=== PATIENT | female | born 1960 | race Hispanic/Latino ===

== ENCOUNTER 2017-07-01 09:49 | Observation (INO) | payer MEDICARE, MEDICAID ==
[2017-07-01 10:25] LABS: #Basophils 0.1 thou/uL (0.0-0.2); #Eosinphils 0.3 thou/uL (0.0-0.7); #Lymphocytes 1.6 thou/uL (1.20-3.40); #Monocytes 0.4 thou/uL (0.11-0.59); #Neutrophils 5.6 thou/uL (1.40-6.50); %Basophils 0.6 % (0.0-1.0); %Lymphocytes 19.7 % (21.0-51.0); %Monocytes 5.2 % (0.0-10.0); %Neutrophils 70.5 % (42.0-75.0); Hemoglobin 11.7 g/dL (12.0-16.0); Mean Corpuscular HGB CONC 31.9 g/dL (32.0-36.0); Mean Platelet Volume 7.4 fL (7.4-10.4); Platelet Count 199 thou/uL (130-400); RBC Distribution Width 12.5 % (11.5-14.5); Red Blood Cell (RBC) Count 3.65 mill/uL (4.20-5.40)
--- NOTE | 2017-07-01 10:28 | RAD ---
SINGLE VIEW CHEST: Date: 07/01/17 COMPARISON: 08/27/16. HISTORY: Dyspnea. FINDINGS: Single view of the chest shows a normal sized cardiomediastinal silhouette. There is no evidence of c onsolidation, mass, or pleural effusion. The bones are unremarkable. IMPRESSION: No evidence of acute cardiopulmonary disease. POS: [facility]
[2017-07-01 10:48] LABS: ALT (SGPT) 9 U/L (8-55); AST (SGOT) 12 U/L (5-34); Albumin 4.4 g/dL (3.5-5.0); Alkaline Phosphatase 80 U/L (40-150); Anion Gap 14 mmol/L (10-20); BUN (Urea Nitrogen) 18 mg/dL (9.8-20.1); Bilirubin, Total 0.3 mg/dL (0.2-1.2); Calc. Creatinine Clearance 0 mL/min (70-130); Calcium 9.5 mg/dL (7.8-10.44); Carbon Dioxide 31 mmol/L (22-29); Chloride 98 mmol/L (98-107); Estimated GFR-MDRD 15; Globulin 3.1 g/dL (2.4-3.5); Glucose 126 mg/dL (70-105); Potassium 4.2 mmol/L (3.5-5.1); Protein, Total 7.5 g/dL (6.0-8.3); Sodium 139 mmol/L (136-145)
[2017-07-01 10:52] LABS: CKMB 2.1 ng/mL (0-6.6); Troponin I 0.013 ng/mL (< 0.028)
[2017-07-01] MEDS ORDERED: Nitroglycerin 0.4 MG TAB (25 Tab Bottle) ONE (16:31)
[2017-07-01] MEDS ORDERED: Ondansetron ODT 4 MG TAB SL PRN (17:57)
[2017-07-01] MEDS ORDERED: Ondansetron HCl/PF 4 MG/2 ML Vial IVP PRN ×2 (17:57→20:11)
[2017-07-01] MEDS ORDERED: Acetaminophen 325 MG TAB PO PRN ×2 (17:57→20:11)
[2017-07-01] MEDS ORDERED: Nitroglycerin 0.4 MG TAB (25 Tab Bottle) PO PRN (20:09)
[2017-07-01] MEDS ORDERED: Dextrose 50% Abboject 50 ML SYRINGE SLOW IVP PRN (20:09)
[2017-07-01] MEDS ORDERED: Insulin Regular 300 UNITS/3 ML VIAL SC PRN (20:09)
[2017-07-01] MEDS ORDERED: Dextrose 5% in Water 1,000 ML IV PRN (20:09)
[2017-07-01] MEDS ORDERED: Senokot 8.6 MG TAB PO PRN (20:11)
[2017-07-01] MEDS ORDERED: Ondansetron ODT 4 MG TAB PO PRN (20:11)
[2017-07-01] MEDS ORDERED: Calcium Carbonate 500 MG ChewTAB PO PRN (20:11)
[2017-07-01 20:18] VITALS: BMI 43.7
[2017-07-01 20:27] LABS: Troponin I 0.015 ng/mL (< 0.028)
--- NOTE | 2017-07-01 20:35 | HP ---
DATE OF ADMISSION: 07/01/2017 PRIMARY CARE PHYSICIAN: Dr. Driver. CHIEF COMPLAINT: Chest discomfort and shortness of breath during dialysis today. HISTORY OF PRESENT ILLNESS: The patient is a 57-year-old female with diabetes mellitus type 2, peripheral vascular disease, hypertension, dyslipidemia, and end-stage renal disease on hemodialy sis, presented to the emergency room by EMS with chest discomfort and shortness of breath that starte d during dialysis. The chest discomfort was substernal, radiating between her scapula. She also had shortness of breath that was worse on lying down. Over the last month or so, the patient has on and off cough, which is nonproductive. The cough gets worse after smoking. She denies any fevers, chil ls or any production. No recent immobilization or travel reported. She denies any fever or chills. No syncope, palpitations or diaphoresis reported. In the emergency room, initial vital signs showed temperature 98.2, respirations of 19, pulse of 73, and blood pressure of 144/81 with O2 saturation of 99% on room air. She received aspirin, nitroglyce rin with 1 liter IV fluids in the emergency room. PAST MEDICAL HISTORY: 1. End-stage renal disease, on hemodialysis Saturday, Saturday, and Saturday. 2. Hypertension. 3. Dyslipidemia. 4. Diabetes mellitus type 2. 5. Ongoing tobacco abuse. PAST SURGICAL HISTORY: 1. Dialysis access. 2. 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 ALLERGIES: No known drug allergies. CURRENT HOME MEDICATIONS: The patient is unable to recall all of her home medications. Family is to bring an accurate list of medication. She takes 81 mg aspirin on a daily basis. SOCIAL HISTORY: The patient smokes on and off up to half pack per week. No alcohol or drug use. FAMILY HISTORY: Father of motor vehicle accident at a very young age. No premature coronary [place] disease reported. Some family members are with diabetes. REVIEW OF SYSTEMS: The following complete review of systems was negative, unless otherwise mentioned in the HPI or below: Constitutional: Weight loss or gain, ability to conduct usual activities. Skin: Rash, itching. Eyes: Double vision, pain. ENT/Mouth: Nose bleeding, neck stiffness, pain, tenderness. Cardiovascular: Palpitations, dyspnea on exertion, orthopnea. Respiratory: Shortness of breath, wheezing, cough, hemoptysis, fever or night sweats. Gastrointestinal: Poor appetite, abdominal pain, heartburn, nausea, vomiting, constipation, or diarr hea. Genitourinary: Urgency, frequency, dysuria, nocturia. Musculoskeletal: Pain, swelling. Neurologic/Psychiatric: Anxiety, depression. Allergy/Immunologic: Skin rash, bleeding tendency. PHYSICAL EXAMINATION: VITAL SIGNS: As discussed above. GENERAL: A 57-year-old female, in no apparent distress. Chest discomfort improved. HEENT: Head: Atraumatic, normocephalic. Sclerae are anicteric. Moist mucous membrane, no oral les ion. NECK: Supple, no JVD appreciated. No carotid bruit. LUNGS: Essentially clear to auscultation bilaterally with scattered rales at bases. There were no r honchi or wheezing. HEART: S1 and S2 present. Regular rate and rhythm. No rubs, gallops or murmur appreciated. No rep roducible chest wall tenderness. EXTREMITIES: 1+ edema in bilateral lower extremities. No calf tenderness. SKIN: Warm and dry. LYMPH NODES: No palpable lymph nodes in the neck. PERIPHERAL VASCULAR: Radial pulses palpable bilaterally. MUSCULOSKELETAL: No joint swelling or tenderness. NEUROLOGIC: Grossly nonfocal, moves all four extremities. PSYCHIATRIC: Alert, awake, and oriented x3. LABORATORY AND X-RAY FINDINGS: CBC showed WBC 8.0 with hemoglobin 11.7, hematocrit 36.6, and platele t count of 199. Chemistries showed sodium 139, potassium 4.2, chloride 98, bicarbonate 31, BUN 18, c reatinine 3.12. Troponin on admission was negative. No troponin has been done since then. BNP was 332. EKG by my review showed sinus rhythm with left ventricular hypertrophy and left axis deviation. QT interval was 469 milliseconds. Chest x-ray by my review showed minimal pulmonary vascular conge stion. IMPRESSION: 1. Chest discomfort, rule out acute coronary syndrome. 2. Shortness of breath, probably secondary to volume overload. 3. Diabetes mellitus type 2. 4. Hypertension. 5. Hyperlipidemia. 6. Peripheral vascular disease. 7. Ongoing tobacco abuse. PLAN: The patient will be monitored in the telemetry unit as a 23-hour observation. A stress test w ill be ordered if her troponins are negative. We will resume home medications once confirmed. Tobac co cessation was emphasized. I do not think the patient needs a repeat hemodialysis. Her dialysis s ession today was short of 20 minutes also. Continue aspirin. Lifestyle modification emphasized. In sulin sliding scale. Plan of care was discussed with the patient in detail. She stated understanding.
[2017-07-01] MEDS: Atorvastatin Calcium 20 MG TAB PO SCH (20:52)
[2017-07-01] MEDS: Docusate 100 MG CAP PO SCH (20:52)
[2017-07-01] MEDS: cloNIDine 0.1 MG TAB PO SCH (20:53)
[2017-07-01] MEDS: Famotidine 20 MG TAB PO SCH (20:53)
[2017-07-01] MEDS: Metoprolol Tartrate 50 MG TAB PO SCH (20:53)
[2017-07-02 05:29] LABS: Troponin I 0.024 ng/mL (< 0.028)
--- NOTE | 2017-07-02 08:57 | CON ---
DATE OF CONSULTATION: 07/01/2017 TIME: 6 P.M. NEPHROLOGY CONSULTATION REASON FOR CONSULTATION: Stage 6 chronic kidney disease for maintenance hemodialysis. HISTORY OF PRESENT ILLNESS: This is a 57-year-old female who presented to the hospital with 1 day history of chest pain at the end of dialysis. The patient denies headache, numbness, tingling or weakness. Denies any nausea, vomiting or chest pain. PAST MEDICAL HISTORY: End-stage renal disease, hypertension, hyperlipidemia, diabetes mellitus, history of dialysis access, history of amputation of the second right toe. ALLERGIES: Reviewed. HOME MEDICATIONS: Reviewed. FAMILY HISTORY: Negative for ESRD. REVIEW OF SYSTEMS: A 15 point review of systems was performed and was negative except for positives noted above. GENERAL: Weakness- HEAD: Headache- NECK: No swelling or lumps. NOSE: No epistaxis or discharge. EYES: No diplopia or pain. RESPIRATORY: Dyspnea- CARDIOVASCULAR: Chest pain- GASTROINTESTINAL: Nausea- /[employer]: Hematuria- MUSCULOSKELETAL: No joint pain. NEUROPSYCHIATIC SYSTEMS: No suicidal ideation. No ideation. SKIN: Denies any rash or ulcer. CONSTITUTIONAL: No fever or chills. PHYSICAL EXAMINATION: GENERAL: Patient is awake, alert. VITAL SIGNS: Afebrile, pulse 75, breathing 16, blood pressure 144/89. HEAD/NECK: Normocephalic. Atraumatic. EYES: EOMI. No deformity. EARS: Clear. No ulcers. NOSE: Intact. No lesions. MOUTH: Clear. No discharge. THROAT: Clear. No exudate. LUNGS: Clear. No crackles. CARDIAC: S1, S2. No rub. ABDOMEN: Benign. BS+. GENITALIA/RECTUM: Weeks absent. BACK/EXTREMITIES: Edema 0+ Ulcer- NEUROLOGICAL: Alert and motor intact. SKIN: Rash- Bruise- LYMPHATICS: Edema- Ulcer- LABORATORY DATA: Showed hemoglobin 11.7. ASSESSMENT AND RECOMMENDATIONS: 1. Stage 6 chronic kidney disease. We will plan dialysis per schedule Saturday, Saturday, and Saturday. 2. Hypertension, stable. 3. Anemia, stable. 4. Medications based on glomerular filtration rate are appropriate. 5. Secondary hyperparathyroidism. Continue low phosphorus diet. 6. Chest pain. Management per primary team. [facility]
--- NOTE | 2017-07-02 10:18 | PRG ---
DATE OF SERVICE: 07/02/2017 SUBJECTIVE: A 57-year-old female being seen for end-stage renal disease. The patient denies any devang sea, vomiting, or chest pain. PHYSICAL EXAMINATION: GENERAL: Patient is awake and alert. VITAL SIGNS: Afebrile, pulse 60, breathing 16, and blood pressure 140/60. HEAD/NECK: Normocephalic. Atraumatic. EYES: EOMI. No deformity. EARS: Clear. No ulcers. NOSE: Intact. No lesions. MOUTH: Clear. No discharge. THROAT: Clear. No exudate. LUNGS: Clear. No crackles. CARDIAC: S1, S2. No rub. ABDOMEN: Benign. BS+. GENITALIA/RECTUM: Weeks absent. BACK/EXTREMITIES: Edema 0+ Ulcer-. NEUROLOGICAL: Alert and motor intact. SKIN: Rash- Bruise-. LYMPHATICS: Edema- Ulcer-. ASSESSMENT AND RECOMMENDATIONS: 1. Stage 6 chronic kidney disease. We will plan dialysis today. 2. Hypertension, stable. 3. Anemia, stable. 4. Medications based on glomerular filtration rate are appropriate.
[2017-07-02] MEDS: Aspirin 325 MG TAB PO SCH (11:05)
[2017-07-02] MEDS: Lisinopril 5 MG TAB PO SCH (11:06)
[2017-07-02] MEDS: Docusate 100 MG CAP PO SCH ×2 (11:06→21:04)
[2017-07-02] MEDS: cloNIDine 0.1 MG TAB PO SCH ×2 (11:07→21:04)
[2017-07-02] MEDS: Metoprolol Tartrate 50 MG TAB PO SCH ×2 (11:07→21:04)
[2017-07-02] MEDS: Insulin Regular 300 UNITS/3 ML VIAL SC PRN ×2 (11:08→18:11)
[2017-07-02 13:47] LABS: HBSAg Index 0.21 S/CO (0-0.99); Hep B Surf Ag Non-Reactive S/CO (NonReactive)
[2017-07-02] MEDS ORDERED: ADENOSINE 60 MG/20 ML VIAL ONE (13:57)
--- NOTE | 2017-07-02 15:43 | PDOC.PN ---
- Subjective Encounter Start Date: 07/02/17 Encounter Start Time: 13:30 Patient seen and examined. SOB + charlene on mild exertion. No overnight events - Objective Resuscitation Status: Resuscitation Status FULL:Full Resuscitation MAR Reviewed: Yes Vital Signs & Weight: Vital Signs (12 hours) Temp Pulse Resp BP BP Pulse Ox 07/02/17 13:12 97 07/02/17 11:07 141/75 H 07/02/17 11:06 70 141/65 H 07/02/17 10:50 98.1 F 69 20 141/65 H 97 07/02/17 08:05 98.5 F 60 20 141/60 H 07/02/17 08:00 98.5 F 60 20 07/02/17 04:25 98.3 F 62 18 136/64 97 Weight Weight 223 lb 9 oz I&O: 07/01/17 07/02/17 07/03/17 06:59 06:59 06:59 Intake Total 480 240 Balance 480 240 Result Diagrams: 07/01/17 10:12 07/01/17 10:12 Additional Labs: Accuchecks 07/02/17 07/02/17 07/01/17 11:00 05:40 21:39 POC Glucose 243 H 135 H 217 H 07/01/17 18:05 POC Glucose 218 H EKG Reviewed by me: Yes (Tele SR) Phys Exam - Physical Examination Constitutional: NAD Respiratory: no wheezing, no rhonchi Scat rales at bases Cardiovascular: RRR, no rub no heaves/pulsations Gastrointestinal: soft, non-tender, no distention, positive bowel sounds Musculoskeletal: no edema Neurological: moves all 4 limbs Psychiatric: normal affect, A&O x 3 Dx/Plan - Plan DVT proph w/SCDs IMPRESSION: 1. Chest discomfort, rule out acute coronary syndrome. 2. Shortness of breath, probably secondary to volume overload. 3. Diabetes mellitus type 2 - on sliding scale 4. Hypertension. 5. Hyperlipidemia. 6. Peripheral vascular disease. 7. Ongoing tobacco abuse. Counselled PLAN: * Await Stress test * Dialysis per Neprho * Cont current meds as below * Cont ASA * Cont to monitor * DC in AM if stress test negative Review of Systems - Review of Systems Respiratory: negative: Cough, Dry, Shortness of Breath, Hemoptysis, SOB with Excertion, Pleuritic Pain, Sputum, Wheezing Gastrointestinal: negative: Nausea, Vomiting, Abdominal Pain, Diarrhea, Constipation, Melena, Hematochezia - Medications/Allergies Allergies/Adverse Reactions: Allergies Allergy/AdvReac Type Severity Reaction Status Date / Time No Known Drug Allergies Allergy Verified 06/13/16 16:19 Medications: Current Medications Acetaminophen (Tylenol) 650 mg PO Q4H PRN PRN Reason: Headache/Fever or Pain Last Admin: 07/01/17 22:13 Dose: 650 mg Aspirin (Aspirin) 325 mg PO DAILY [facility] Last Admin: 07/02/17 11:05 Dose: 325 mg Atorvastatin Calcium (Lipitor) 20 mg PO HS [facility] Last Admin: 07/01/17 20:52 Dose: 20 mg Calcium Carbonate (Tums) 1,000 mg PO Q4H PRN PRN Reason: Heartburn or Indigestion Clonidine (Catapres) 0.1 mg PO BID [facility] Last Admin: 07/02/17 11:07 Dose: 0.1 mg Dextrose/Water (Dextrose 50%) 25 gm SLOW IVP PRN PRN PRN Reason: Hypoglycemia Docusate Sodium (Colace) 100 mg PO BID [facility] Last Admin: 07/02/17 11:06 Dose: 100 mg Famotidine (Pepcid) 20 mg PO 2100 [facility] Last Admin: 07/01/17 20:53 Dose: 20 mg Glucagon (Glucagon) 1 mg IM PRN PRN PRN Reason: Hypoglycemia Dextrose/Water (D5w) 1,000 mls @ 0 mls/hr IV .Q0M PRN; As Directed PRN Reason: Hypoglycemia Insulin Human Regular (Humulin R) 0 units SC .MILD SLIDING SCALE PRN PRN Reason: Mild Correctional Scale Last Admin: 07/02/17 11:08 Dose: 3 unit Insulin Human Regular (Humulin R) 0 units SC .BEDTIME SLIDING SC PRN PRN Reason: Bedtime Correctional Scale Last Admin: 07/01/17 22:07 Dose: 2 unit Lisinopril (Zestril) 5 mg PO DAILY [facility] Last Admin: 07/02/17 11:06 Dose: 5 mg Metoprolol Tartrate (Lopressor) 50 mg PO BID [facility] Last Admin: 07/02/17 11:07 Dose: 50 mg Nitroglycerin (Nitrostat) 0.4 mg PO Q5MIN PRN PRN Reason: Chest Pain Ondansetron HCl (Zofran Odt) 4 mg PO Q6H PRN PRN Reason: Nausea/Vomiting Ondansetron HCl (Zofran) 4 mg IVP Q6H PRN PRN Reason: Nausea/Vomiting Senna (Senokot) 2 tab PO HSPRN PRN PRN Reason: Constipation Sertraline HCl (Zoloft) 50 mg PO [facility] Last Admin: 07/01/17 20:53 Dose: 50 mg
[2017-07-02] MEDS: Famotidine 20 MG TAB PO SCH (21:04)
[2017-07-02] MEDS: Atorvastatin Calcium 20 MG TAB PO SCH (21:04)
[2017-07-03] MEDS: Metoprolol Tartrate 50 MG TAB PO SCH (09:27)
[2017-07-03] MEDS: Aspirin 325 MG TAB PO SCH (09:27)
[2017-07-03] MEDS: Lisinopril 5 MG TAB PO SCH (09:27)
[2017-07-03] MEDS: cloNIDine 0.1 MG TAB PO SCH (09:27)
[2017-07-03] MEDS: Docusate 100 MG CAP PO SCH (09:27)
--- NOTE | 2017-07-03 10:03 | PRG ---
DATE OF SERVICE: 07/03/2017 SUBJECTIVE: This is a 57-year-old female being seen for end-stage renal disease. The patient denies any nausea, vomiting or chest pain. PHYSICAL EXAMINATION: GENERAL: Patient is awake, alert. VITAL SIGNS: Afebrile, pulse 73, breathing 16, blood pressure 130/60. HEAD/NECK: Normocephalic. Atraumatic. EYES: EOMI. No deformity. EARS: Clear. No ulcers. NOSE: Intact. No lesions. MOUTH: Clear. No discharge. THROAT: Clear. No exudate. LUNGS: Clear. No crackles. CARDIAC: S1, S2. No rub. ABDOMEN: Benign. BS+. GENITALIA/RECTUM: Weeks absent. BACK/EXTREMITIES: Edema 0+ Ulcer- NEUROLOGICAL: Alert and motor intact. SKIN: Rash- Bruise- LYMPHATICS: Edema- Ulcer- LABORATORY DATA: Show hemoglobin 11.7. ASSESSMENT AND RECOMMENDATIONS: 1. Stage 6 chronic kidney disease. Continue hemodialysis. 2. Hypertension, stable. 3. Anemia, stable. 4. Medications based on glomerular filtration rate are appropriate.
[2017-07-03 12:07] VITALS: BP 111/51; TEMP 98.5
[2017-07-03] MEDS: Insulin Regular 300 UNITS/3 ML VIAL SC PRN (12:08)
--- NOTE | 2017-07-03 14:29 | NM ---
NUCLEAR MEDICINE CARDIAC PERFUSION EXAM WITH EJECTION FRACTION: COMPARISON: 12/22/10. TECHNIQUE: A 2-day nuclear medicine cardiac perfusion examination was performed. Stress images were obtained us ing 33 mCi of Technetium 99m sestamibi and adenosine. Rest images were obtained using 27 mCi of Tech netium 99m sestamibi. FINDINGS: Tomographic images show no fixed or reversible perfusion defects. Gated images show normal wall sandhya on with an ejection fraction of greater than 70%. EDV is 87 mL. LHR is 0.5. TID is 1.0. IMPRESSION: No evidence of ischemia. POS: [facility]
--- NOTE | 2017-07-03 16:39 | DIS ---
DATE OF DISCHARGE: 07/03/2017. DISCHARGE DISPOSITION: Home. FOLLOWUP: 1. Follow up with primary care physician, Dr. Claudia Driver, in 1 week. 2. Follow up with Nephrology, Dr. Mckeon, for maintenance hemodialysis. The patient was seen and examined on the day of discharge. Denies any new complaints. No chest pain , shortness of breath, palpitations reported. BRIEF HOSPITAL COURSE: The patient is a 57-year-old female with diabetes mellitus type 2, peripheral vascular disease, hypertension, dyslipidemia, and end-stage renal disease on hemodialysis who presen jenni to the hospital with chest discomfort along with shortness of breath during dialysis today. Zachariah terrell refer to the history and physical dated 07/01/2017 for further details. The patient was admitted to the hospital with the diagnosis of chest discomfort, rule out acute coron sam syndrome. Her serial cardiac enzymes were negative. She received dialysis yesterday due to volu me overload. She underwent a 2-day Cardiolite stress test that was negative for reversible ischemia. Ejection fraction was greater than 70% with TID of 1.0. The patient was seen by Nephrology, Dr. Asia alfaro, for maintenance hemodialysis, as well as volume overload. Lifestyle modification was emphasized. She appears stable for discharge. Plan of care was discussed with the patient in detail. She stated understanding. FINAL DIAGNOSES: 1. Chest discomfort, acute coronary syndrome ruled out. 2. Negative Cardiolite stress test. 3. Volume overload, status post extra hemodialysis session this week. 4. Diabetes mellitus type 2. 5. Hypertension. 6. Hyperlipidemia. 7. Peripheral vascular disease. 8. Ongoing tobacco abuse, the patient was counseled. 9. Morbid obesity with a BMI of 42.7. 10. Chronic anemia.
--- NOTE | 2017-07-06 14:24 | EKG ---
Test Reason : Blood Pressure : / mmHG Vent. Rate : 069 BPM Atrial Rate : 069 BPM P-R Int : 124 ms QRS Dur : 072 ms QT Int : 438 ms P-R-T Axes : -07 -16 037 degrees QTc Int : 469 ms Normal sinus rhythm Minimal voltage criteria for LVH, may be normal variant Prolonged QT Abnormal ECG No ST elevation/CA Confirmed by MARGA NEGRETE, YAHIR ([id number]), telegraph editor CHIQUI MOORE ([id number]) on 07/06/2017 2:23:42 PM Referred By: Confirmed By:YAHIR GRESHAM MD
== END 2017-07-03 15:43 | disposition home or self-care (01) ==
LOC: ERS 09:49 → 2SW 15:08
PROVIDERS: ADMIT Internal Medicine; ATTEND Internal Medicine
DX: R07.89 Other chest pain (principal); I12.0 Hypertensive chronic kidney disease with stage 5 chronic kidney disease or end stage renal disease; E11.22 Type 2 diabetes mellitus with diabetic chronic kidney disease; N18.6 End stage renal disease; D63.1 Anemia in chronic kidney disease; E11.51 Type 2 diabetes mellitus with diabetic peripheral angiopathy without gangrene; E78.5 Hyperlipidemia, unspecified; E87.79 Other fluid overload; F17.210 Nicotine dependence, cigarettes, uncomplicated; E66.01 Morbid (severe) obesity due to excess calories; Z68.41 Body mass index [BMI] 40.0-44.9, adult; Z89.421 Acquired absence of other right toe(s); Z99.2 Dependence on renal dialysis
CPT/HCPCS: 71045; 78452; 80053; 82553; 82962 ×3; 83880; 84484 ×3; 85025; 87340; 93005; 93017; 94760; 96360; 99285; A9500; G0378; 36415; 36416; 90935; G0257; J0153; J1815

== ENCOUNTER 2017-11-04 09:04 | Emergency (ER) | payer MEDICARE, MEDICAID ==
[2017-11-04 09:36] LABS: #Basophils 0.1 thou/uL (0.0-0.2); #Eosinphils 0.4 thou/uL (0.0-0.7); #Lymphocytes 2.4 thou/uL (1.20-3.40); #Monocytes 0.5 thou/uL (0.11-0.59); #Neutrophils 7.1 thou/uL (1.40-6.50); %Basophils 0.9 % (0.0-1.0); %Eosinophils 3.6 % (0.0-10.0); %Monocytes 4.4 % (0.0-10.0); %Neutrophils 68.1 % (42.0-75.0); Hemoglobin 13.5 g/dL (12.0-16.0); Mean Corpuscular HGB CONC 32.6 g/dL (32.0-36.0); Mean Corpuscular Hemoglobin 31.2 pg (27.0-31.0); Mean Corpuscular Volume 95.7 fl (81.0-99.0); Mean Platelet Volume 7.9 fL (7.4-10.4); Platelet Count 194 thou/uL (130-400); RBC Distribution Width 12.2 % (11.5-14.5); Red Blood Cell (RBC) Count 4.35 mill/uL (4.20-5.40); White Blood Cell (WBC) Count 10.4 thou/uL (4.8-10.8)
--- NOTE | 2017-11-04 09:43 | RAD ---
PORTABLE CHEST 1 VIEW: Date: 11/04/17 Time: 0829 hours HISTORY: Chest pain. FINDINGS: Comparison made with exam of 07/01/17. The heart size is normal. No confluent areas of consolidation, pneumothoraces, or pleural effusions a re seen. IMPRESSION: No radiographic evidence of acute cardiopulmonary process. POS: [facility]
[2017-11-04 10:05] LABS: CKMB 1.1 ng/mL (0-6.6); Troponin I Less than 0.010 ng/mL (< 0.028)
[2017-11-04 10:33] LABS: ALT (SGPT) 12 U/L (8-55); AST (SGOT) 21 U/L (5-34); Albumin 4.3 g/dL (3.5-5.0); Alkaline Phosphatase 74 U/L (40-150); Anion Gap 18 mmol/L (10-20); BUN (Urea Nitrogen) 27 mg/dL (9.8-20.1); Bilirubin, Total 0.4 mg/dL (0.2-1.2); CK (CPK) 61 U/L (29-168); Calc. Creatinine Clearance 0 mL/min (70-130); Calcium 9.7 mg/dL (7.8-10.44); Carbon Dioxide 26 mmol/L (22-29); Chloride 100 mmol/L (98-107); Estimated GFR-MDRD 11; Globulin 3.8 g/dL (2.4-3.5); Glucose 112 mg/dL (70-105); Lipase 10 U/L (8-78); Potassium 5.1 mmol/L (3.5-5.1); Protein, Total 8.1 g/dL (6.0-8.3); Sodium 139 mmol/L (136-145)
== END 2017-11-04 11:04 | disposition home or self-care (01) ==
LOC: ERS 09:04
DX: R07.89 Other chest pain (principal); E11.22 Type 2 diabetes mellitus with diabetic chronic kidney disease; I12.0 Hypertensive chronic kidney disease with stage 5 chronic kidney disease or end stage renal disease; N18.6 End stage renal disease; E78.5 Hyperlipidemia, unspecified; F32.9 Major depressive disorder, single episode, unspecified; F41.9 Anxiety disorder, unspecified; Z87.891 Personal history of nicotine dependence; Z79.82 Long term (current) use of aspirin; Z79.4 Long term (current) use of insulin; Z79.899 Other long term (current) drug therapy
CPT/HCPCS: 71045; 80053; 82550; 82553; 83690; 83880; 84484; 85025; 93005

== ENCOUNTER 2017-11-24 09:49 | Emergency (ER) | payer MEDICARE, MEDICAID ==
[2017-11-24 10:21] LABS: #Eosinphils 0.4 thou/uL (0.0-0.7); #Lymphocytes 1.5 thou/uL (1.20-3.40); #Monocytes 0.7 thou/uL (0.11-0.59); #Neutrophils 3.8 thou/uL (1.40-6.50); %Basophils 0.3 % (0.0-1.0); %Eosinophils 6.3 % (0.0-10.0); %Monocytes 10.5 % (0.0-10.0); %Neutrophils 58.8 % (42.0-75.0); Hemoglobin 10.9 g/dL (12.0-16.0); Mean Corpuscular HGB CONC 33.4 g/dL (32.0-36.0); Mean Corpuscular Hemoglobin 32.1 pg (27.0-31.0); Mean Platelet Volume 7.4 fL (7.4-10.4); Platelet Count 157 thou/uL (130-400); RBC Distribution Width 12.9 % (11.5-14.5); White Blood Cell (WBC) Count 6.4 thou/uL (4.8-10.8)
[2017-11-24 10:29] LABS: PTT 24.8 SEC (22.9-36.1); Prothrombin Time 13.2 SEC (12.0-14.7)
[2017-11-24 10:36] LABS: ALT (SGPT) 7 U/L (8-55); AST (SGOT) 13 U/L (5-34); Albumin 3.8 g/dL (3.5-5.0); Alkaline Phosphatase 67 U/L (40-150); Anion Gap 16 mmol/L (10-20); BUN (Urea Nitrogen) 34 mg/dL (9.8-20.1); Bilirubin, Total 0.2 mg/dL (0.2-1.2); Calc. Creatinine Clearance 0 mL/min (70-130); Calcium 9.2 mg/dL (7.8-10.44); Carbon Dioxide 26 mmol/L (22-29); Chloride 100 mmol/L (98-107); Estimated GFR-MDRD 7; Globulin 2.9 g/dL (2.4-3.5); Glucose 94 mg/dL (70-105); Potassium 4.3 mmol/L (3.5-5.1); Protein, Total 6.7 g/dL (6.0-8.3); Sodium 138 mmol/L (136-145)
[2017-11-24 10:39] LABS: CKMB 1.5 ng/mL (0-6.6); Troponin I Less than 0.010 ng/mL (< 0.028)
--- NOTE | 2017-11-24 10:46 | CT ---
NONCONTRAST CT HEAD: DATE: 11/24/17. HISTORY: Stroke alert, vision loss in left eye. 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 The patient was last seen normal at 0300 hours. COMPARISON: 03/08/15. FINDINGS: There is no evidence of a hemorrhage, acute infarction, mass effect, or midline shift. Ventricular s ystem is normal in size, shape, and position. There has been no interval change when compared to the prior exam. IMPRESSION: 1. No acute intracranial abnormality is demonstrated. 2. The above findings were discussed with Dr. Swann in the emergency department on 11/24/17 at 1004 hours. CODE CR POS: [facility]
[2017-11-24] MEDS ORDERED: Proparacaine 0.5% Opth 15 ML BOT ONE (11:14)
--- NOTE | 2017-11-24 11:14 | CT ---
CTA OF THE NECK WITH CONTRAST CTA OF THE HEAD WITH CONTRAST: HISTORY: Acute vision loss in the left eye. 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 TECHNIQUE: 1. Multiple contiguous axial images were obtained in a CTA of the neck with contrast. Three-D sagit richa and coronal MIP reformats were performed. 2. Multiple contiguous axial images were obtained in a CTA of the head with contrast. Three-D sagit richa and coronal MIP reformats were performed. FINDINGS: CTA NECK: There is atherosclerotic disease in the aortic arch. There is normal origin of the common carotid [place] from the aortic arch. Minimal atherosclerotic disease is seen in the common carotid arteries. The subclavian arteries are patent bilaterally without significant narrowing. The common carotid arteries show minimal atherosclerotic disease just before the bifurcation. There is mild calcified atherosclerotic plaque in the bilateral internal carotid arteries, left greater feli n right. Estimated stenosis of less than 10% per NASCET criteria is seen bilaterally. The external carotid arteries are patent. Both vertebral arteries are patent and without significant atherosclerotic disease. No mucosal abnormality is seen in the neck. No cervical adenopathy is seen. CTA HEAD: There is moderate diffuse nonfocal atherosclerotic disease in the cavernous portion of both internal carotid arteries. The intracranial internal carotid arteries demonstrate minimal atherosclerotic dis ease. The anterior cerebral arteries and middle cerebral arteries are patent. There is no evidence of aneurysmal dilatation, focal stenosis, or occlusion in the anterior circulation. The arterial str uctures in the retrobulbar region are symmetric in appearance and the optic artery appears intact vipin aterally without evidence of inclusion. Both vertebral arteries form a normal-appearing basilar artery. The posterior communicating arteries and cerebellar arteries are patent. There is no evidence of aneurysmal dilatation, focal stenosis, or occlusion of the posterior circulation. Compared to the CT from 2015, the patient has had bilateral lens replacement surgery. Posterior to t he left orbit along the lateral aspect, there is a 1.6 cm hyperdense region which was not seen on yoel or CT. This could represent postsurgical change. Correlate with ophthalmologic history. IMPRESSION: No significant CTA abnormality of the neck. No significant CTA abnormality of the head. Dr. Swann notified of the findings at 10:38 p.m. on 11/24/17. CODE CR POS: [facility]
== END 2017-11-24 14:30 | disposition home or self-care (01) ==
LOC: ERS 09:49 → 2SE 14:23 → UNDOADMOB 14:23 → ERS 14:30
DX: H43.13 Vitreous hemorrhage, bilateral (principal); H54.3 Unqualified visual loss, both eyes; E11.9 Type 2 diabetes mellitus without complications; E78.5 Hyperlipidemia, unspecified; I12.0 Hypertensive chronic kidney disease with stage 5 chronic kidney disease or end stage renal disease; N18.6 End stage renal disease; F17.210 Nicotine dependence, cigarettes, uncomplicated; F41.9 Anxiety disorder, unspecified; F32.9 Major depressive disorder, single episode, unspecified; Z99.2 Dependence on renal dialysis; Z79.899 Other long term (current) drug therapy; Z79.82 Long term (current) use of aspirin; Z79.4 Long term (current) use of insulin
CPT/HCPCS: 0042T; 36416; 70450; 70496; 70498; 80053; 82553; 84484; 85025; 85610; 85652; 85730; 86140; 93005

== ENCOUNTER 2018-07-05 09:34 | Inpatient (IN) | payer MEDICARE, MEDICAID ==
[2018-07-05 10:28] LABS: #Lymphocytes 0.9 thou/uL (1.20-3.40); #Monocytes 0.9 thou/uL (0.11-0.59); #Neutrophils 13.3 thou/uL (1.40-6.50); %Eosinophils 0.1 % (0.0-10.0); %Lymphocytes 6.2 % (21.0-51.0); %Neutrophils 87.7 % (42.0-75.0); Hemoglobin 11.3 g/dL (12.0-16.0); Mean Corpuscular HGB CONC 32.5 g/dL (32.0-36.0); Mean Corpuscular Hemoglobin 31.7 pg (27.0-31.0); Mean Corpuscular Volume 97.5 fL (78.0-98.0); Mean Platelet Volume 8.1 fL (7.4-10.4); Platelet Count 187 thou/uL (130-400); RBC Distribution Width 12.2 % (11.5-14.5); Red Blood Cell (RBC) Count 3.55 mill/uL (4.20-5.40); White Blood Cell (WBC) Count 15.2 thou/uL (4.8-10.8)
[2018-07-05 10:51] LABS: ALT (SGPT) 13 U/L (8-55); AST (SGOT) 14 U/L (5-34); Albumin 3.7 g/dL (3.5-5.0); Alkaline Phosphatase 81 U/L (40-150); Anion Gap 12 mmol/L (10-20); BUN (Urea Nitrogen) 29 mg/dL (9.8-20.1); Bilirubin, Total 0.4 mg/dL (0.2-1.2); Calc. Creatinine Clearance 0 mL/min (70-130); Calcium 9.3 mg/dL (7.8-10.44); Carbon Dioxide 28 mmol/L (22-29); Chloride 95 mmol/L (98-107); Estimated GFR-MDRD 10; Globulin 3.2 g/dL (2.4-3.5); Glucose 258 mg/dL (70-105); Potassium 4.4 mmol/L (3.5-5.1); Protein, Total 6.9 g/dL (6.0-8.3); Sodium 131 mmol/L (136-145)
--- NOTE | 2018-07-05 11:07 | RAD ---
CHEST 2 VIEWS: Date: 07/05/18 INDICATION: Fever, chills, and cough. COMPARISON: Prior exam dated 11/04/17. FINDINGS: There is stable mild cardiomegaly. No definitive confluent air space opacity or pleural effusion is e vident. Motion artifact limits image detail on the lateral projection. No definite acute osseous abno rmality is evident. IMPRESSION: Stable cardiomegaly. No definite acute abnormality. POS: [facility]
[2018-07-05] MEDS ORDERED: Piperacillin/Tazobactam 4.5 GM VIAL ONE (11:31)
[2018-07-05] MEDS ORDERED: Morphine 4 MG/ML VIAL ONE (13:17)
[2018-07-05] MEDS ORDERED: Acetaminophen 500 MG TAB ONE (13:34)
--- NOTE | 2018-07-05 14:07 | CT ---
CT OF THE THORAX WITHOUT IV CONTRAST: Date: 07/05/18 INDICATION: 58-year-old female with cough, fever, body aches, chills, and congestion. FINDINGS: There is hazy peripheral nodular ground-glass opacities without the right upper lobe and right middle lobe. This is best seen on image 17 of series 3, image 21 of series 3, and image 29 of series 3. Add itional nodules seen on image 31 of series 3. One of the largest nodules is seen measuring approximat ricardo 1.0 cm. No suspicious nodular opacities are present within the left lung. There are areas of subs egmental volume loss within both lower lobes, as well as the lingula. There are coronary artery thora cic aortic calcifications. Visualized upper abdomen demonstrates some fatty atrophy of the pancreas. No definite acute osseous abnormality is evident. IMPRESSION: 1. Nonspecific peripheral ground-glass and nodular opacities within the right upper lobe and right m iddle lobe may reflect infectious or inflammatory nodules. A short-term follow-up in 6-8 weeks to doc ument resolution is recommended. Metastatic disease is not excluded. 2. Areas of subsegmental volume loss within both lower lobes and lingula. 3. Other chronic findings as above. POS: [facility]
[2018-07-05] MEDS ORDERED: Sodium Chloride 0.9% 1,000 ML IV SCH (15:15)
[2018-07-05] MEDS ORDERED: Sevelamer Carbonate 800 MG TAB PO SCH ×2 (16:15→16:30)
[2018-07-05] MEDS ORDERED: Nitroglycerin 0.4 MG TAB (25 Tab Bottle) SL PRN (16:15)
[2018-07-05] MEDS ORDERED: Senokot S 8.6-50 MG TAB PO PRN (16:18)
[2018-07-05] MEDS ORDERED: Acetaminophen 325 MG TAB PO PRN (16:18)
[2018-07-05] MEDS ORDERED: Dextrose 50% Abboject 50 ML SYRINGE SLOW IVP PRN (16:18)
[2018-07-05] MEDS ORDERED: Ondansetron ODT 4 MG TAB PO PRN (16:18)
[2018-07-05] MEDS ORDERED: Dextrose 5% in Water 1,000 ML IV PRN (16:18)
[2018-07-05] MEDS ORDERED: Bisacodyl 10 MG SUPP PR PRN (16:18)
[2018-07-05] MEDS ORDERED: Ondansetron PF 4 MG/2 ML Vial IVP PRN (16:18)
[2018-07-05] MEDS ORDERED: Vancomycin HCl 1 GM in Premix Bag 1 BAG IVPB SCH ×2 (16:30→17:00)
[2018-07-05] MEDS: Sevelamer Carbonate 800 MG TAB PO SCH (16:31)
[2018-07-05] MEDS ORDERED: Vancomycin HCl 1.25 GM in Sodium Chloride 0.9% 250 ML 250 ML IVPB SCH (17:00)
[2018-07-05] MEDS ORDERED: Vancomycin HCl 750 MG in Sodium Chloride 0.9% 250 ML 250 ML IVPB SCH (17:00)
[2018-07-05] MEDS ORDERED: Vancomycin HCl 500 MG in Sodium Chloride 0.9% 100 ML IVPB SCH (17:00)
[2018-07-05] MEDS ORDERED: HOLD VANCOMYCIN FOR LEVEL >20 FS SCH (17:00)
[2018-07-05] MEDS: HumaLOG 300 UNITS/3 ML VIAL SC PRN (17:18)
--- NOTE | 2018-07-05 17:33 | HP ---
HOSPITALIST HISTORY AND PHYSICAL CHIEF COMPLAINT: Worsening cough associated with fever and chills since 2 days. HISTORY OF PRESENT ILLNESS: The patient is a 58-year-old female with past medical history significant for type 2 diabetes, obesity, hypertension, dyslipidemia, and end-stage renal disease, on hemodialysis Saturday, Saturday and Saturday, who presents to the emergency room with acute onset of fever and chills superimposed on intermittent cough and rhinorrhea. The patient reported associated pleuritic chest pain since onset of fever. She first noticed the fever during hemodialysis yesterday, though she managed to complete dialysis session. She reported shaking chills, scanty yellow sputum production, and some difficulty breathing. There was no history of palpitations, nausea, vomiting, dysuria, leg swelling, change in bowel habit, hematemesis, hematuria, or hematochezia. She also denied headache, visual changes, or limb weakness. On presentation to the emergency room, the patient was noted to be febrile and tachycardic. She was treated with IV fluid with improvement of tachycardia. Further evaluation with CBC showed leukocytosis. Impression of sepsis was made and the patient was started on broad-spectrum antibiotics after blood culture collection. She was admitted for further evaluation and treatment. PAST MEDICAL HISTORY: 1. End-stage renal disease, on hemodialysis Saturday, Saturday and Saturday. 2. Hypertension. 3. Dyslipidemia. 4. Diabetes mellitus, type 2. 5. Tobacco abuse disorder. 6. Depression. 7. Obesity. PAST SURGICAL HISTORY: 1. Dialysis access creation. 2. 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 FAMILY HISTORY: The patient lives with family members. Father at early age from motor vehicle accident. There is significant history of diabetes in relatives. SOCIAL HISTORY: The patient continues to smoke cigarettes on and off about half a pack per day. She denied alcohol or recreational drug use. ALLERGIES: THERE ARE NO KNOWN DRUG ALLERGIES. HOME MEDICATIONS: 1. Aspirin 81 mg daily. 2. Lipitor 20 mg daily. 3. Insulin 70/30, 35 units b.i.d. 4. Sevelamer 800 mg tablets, 2 tablets with meals. 5. Sublingual nitroglycerin 0.4 mg as needed. 6. Metoprolol 50 mg b.i.d. 7. Famotidine 20 mg b.i.d. 8. Clonidine 0.1 mg b.i.d. REVIEW OF SYSTEMS: A 12-point review of systems performed was negative other than pertinent positives and negatives included in the history of present illness. PHYSICAL EXAMINATION: VITAL SIGNS: On presentation to the emergency room, the patient had BP of 156/89, pulse was 91, respiratory rate was 18, temperature was 102.6, and SpO2 was 97% on room air. GENERAL: Obese female in some painful distress. Febrile, but anicteric and acyanotic. Acutely ill-looking. HEENT: Normocephalic and atraumatic. Oral mucosa is moist. NECK: Supple and nontender with full range of motion. CARDIOVASCULAR: Regular rhythm and rate. Tachycardic. Normal heart sounds 1 and 2 were appreciated. RESPIRATORY: Fair air entry bilaterally with some transmitted sounds. No obvious rhonchi was appreciated. Work of breathing is increased. GI: Abdomen is obese, soft, nontender and nondistended with normal bowel sounds. EXTREMITIES: Grossly normal looking and atraumatic. No edema, erythema or cyanosis was appreciated. SKIN: No obvious rash was appreciated. NEUROLOGIC: Conscious, alert and oriented x3 with appropriate mental status. Cranial nerves 2 through 12 are intact. The patient moves all extremities. DIAGNOSTIC DATA: CBC showed WBC count of 15.2, hemoglobin of 11.3, MCV of 97.5, and platelet of 187. CMP showed sodium 131, potassium 4.4, chloride 95, CO2 28, BUN 29, creatinine 4.58, glucose 258, calcium 9.3, total bilirubin 0.4, AST 14, ALT 13, alkaline phosphatase 81, total protein 6.9, and albumin 3.7. Lactic acid was 1.0. Troponin was 0.028. Flu screen was negative (direct EIA). EKG showed normal sinus rhythm with rate of 83. No obvious ST elevation appreciated. Nonspecific ST segment and T wave changes were noted. Chest x-ray showed no acute abnormalities. CT scan of the chest showed nonspecific peripheral ground-glass and nodular opacities within the right upper lobe and right middle lobe, which may reflect infectious or inflammatory nodules. ASSESSMENT: 1. Sepsis: Given leukocytosis, fever and tachycardia. This most likely is related to pneumonic process. 2. Healthcare-associated pneumonia. 3. Chest pain: This is pleuritic in nature. This is most likely due to pneumonic process. However, chest pain or cardiac origin is a concern. The patient had negative stress test in June 2017. She, however, has significant risk factors, which include diabetes, peripheral vascular disease, hypertension, and hyperlipidemia as well as tobacco abuse and obesity. 4. Hypertension. 5. Type 2 diabetes mellitus. 6. Hyperlipidemia. 7. End-stage renal disease, on hemodialysis Saturday, Saturday and Saturday. PLAN: 1. We will start the patient on broad-spectrum antibiotic therapy with vancomycin, Zosyn, and levofloxacin, which will be renally dosed. 2. We will also get respiratory viral panel as well as sputum culture. Blood culture is pending at this time. 3. We will place the patient on contact isolation. 4. We will start the patient on sliding scale insulin. 5. We will also continue the patient on regular antihypertensives. 6. We will also get serial troponin to rule out acute coronary syndrome/acute myocardial infarction. 7. The patient will be started on renal diet. 8. DVT prophylaxis with Lovenox will be provided. 9. Code: Full code. 10. It is anticipated that the patient will be admitted for up to 3 nights. Job ID: [id number]
[2018-07-05] MEDS ORDERED: Piperacillin/Tazobactam 4.5 GM in Sodium Chloride 0.9% 100 ML IVPB SCH (18:00)
[2018-07-05] MEDS: Sodium Chloride 0.9% 1,000 ML IV SCH (19:48)
[2018-07-05] MEDS ORDERED: Piperacillin/Tazobactam 2.25 GM in Sodium Chloride 0.9% 100 ML IVPB SCH (22:00)
[2018-07-05] MEDS: Famotidine 20 MG TAB PO SCH (22:45)
[2018-07-05] MEDS: Atorvastatin Calcium 20 MG TAB PO SCH (22:45)
[2018-07-05] MEDS: Metoprolol Tartrate 50 MG TAB PO SCH (22:46)
--- NOTE | 2018-07-06 00:57 | CON ---
DATE OF CONSULTATION: 07/05/2018 REASON FOR CONSULTATION: Chronic kidney disease on maintenance hemodialysis. HISTORY OF PRESENT ILLNESS: This is a very pleasant 58-year-old female, presented to the hospital with flu-like symptoms. The patient had a temperature of 103. The patient is on dialysis Saturday, Saturday, and Saturday. The patient had a potassium of 4.4. The patient denies headache, numbness, tingling, or weakness. PAST MEDICAL HISTORY: 1. Hypertension. 2. End-stage renal disease. 3. Anemia. 4. Secondary hyperparathyroidism. 5. Diabetes mellitus. 6. History of blindness. PAST SURGICAL HISTORY: Surgical history reviewed. 1. History of fistula placement. 2. History of cataract surgery. 3. History of right ankle surgery. SOCIAL HISTORY: No tobacco, alcohol, or drug use. ALLERGIES: REVIEWED. HOME MEDICATIONS: List reviewed. REVIEW OF SYSTEMS: A 15-point review of system was performed and was negative except for positives noted above. GENERAL: HEAD: NECK: No swelling or lumps. NOSE: No epistaxis or discharge. EYES: No diplopia or pain. RESPIRATORY: CARDIOVASCULAR: GASTROINTESTINAL: /SQL SERVER DEVELOPER: MUSCULOSKELETAL: No joint pain. NEUROPSYCHIATIC SYSTEMS: No suicidal ideation. No ideation. SKIN: Denies any rash or ulcer. CONSTITUTIONAL: No fever or chills. PHYSICAL EXAMINATION: See above. GENERAL: The patient is awake and alert. VITAL SIGNS: Afebrile. Pulse 107, breathing 16, blood pressure 166/89. GENERAL APPEARANCE AND MENTAL STATUS: Fair. HEAD/NECK: Normocephalic. Atraumatic. EYES: EOMI. No deformity. EARS: Clear. No ulcers. NOSE: Intact. No lesions. MOUTH: Clear. No discharge. THROAT: Clear. No exudate. LUNGS: Clear. No crackles. CARDIAC: S1, S2. No rub. ABDOMEN: Benign. Bowel sounds positive. GENITALIA/RECTUM: Weeks absent. BACK/EXTREMITIES: Edema 0+. NEUROLOGICAL: Alert and motor intact. SKIN: LYMPHATICS: LABORATORY DATA: Labs reviewed. ASSESSMENT AND PLAN: 1. End-stage chronic kidney disease. Plan, dialysis on Saturday. 2. Hypertension. 3. Severe anemia. Medication based on GFR appropriate. Job ID: [id number]
[2018-07-06] MEDS: Piperacillin/Tazobactam 2.25 GM in Sodium Chloride 0.9% 100 ML IVPB SCH ×3 (01:11→17:49)
[2018-07-06] MEDS: HYDROcodone/Acetaminophen 5/325 mg Tablet PO PRN ×2 (01:12→06:32)
[2018-07-06 06:39] LABS: Albumin 3.4 g/dL (3.5-5.0); Anion Gap 16 mmol/L (10-20); BUN (Urea Nitrogen) 37 mg/dL (9.8-20.1); BUN/Creatinine Ratio 7.07; Calc. Creatinine Clearance 18 mL/min (70-130); Calcium 8.9 mg/dL (7.8-10.44); Carbon Dioxide 25 mmol/L (22-29); Chloride 97 mmol/L (98-107); Estimated GFR-MDRD 8; Glucose 221 mg/dL (70-105); Phosphorus 3.6 mg/dL (2.3-4.7); Potassium 4.8 mmol/L (3.5-5.1)
[2018-07-06 06:54] LABS: Band 8 % (5-11); Eosinophils 1 % (0-10); Hemoglobin 11.1 g/dL (12.0-16.0); Lymphocytes 5 % (21-51); MDiff Complete? YES; Mean Corpuscular HGB CONC 31.9 g/dL (32.0-36.0); Mean Corpuscular Hemoglobin 31.2 pg (27.0-31.0); Mean Corpuscular Volume 97.6 fL (78.0-98.0); Monocytes 4 % (0-10); Neutrophil 82 % (42-75); Platelet Count 162 thou/uL (130-400); RBC Distribution Width 12.2 % (11.5-14.5); Red Blood Cell (RBC) Count 3.55 mill/uL (4.20-5.40); White Blood Cell (WBC) Count 16.4 thou/uL (4.8-10.8)
[2018-07-06 07:17] LABS: Sodium 133 mmol/L (136-145)
[2018-07-06] MEDS ORDERED: Enoxaparin Sodium 30 MG/0.3 ML SYRINGE SC SCH (09:00)
[2018-07-06] MEDS ORDERED: RENALLY ADJUST ABX IVPB PRN (10:00)
[2018-07-06] MEDS: Aspirin 81 mg Enteric Coated Tablet PO SCH (10:35)
[2018-07-06] MEDS: Sevelamer Carbonate 800 MG TAB PO SCH ×3 (10:35→17:46)
[2018-07-06] MEDS: Metoprolol Tartrate 50 MG TAB PO SCH (10:35)
[2018-07-06] MEDS: Famotidine 20 MG TAB PO SCH ×2 (10:36→20:44)
--- NOTE | 2018-07-06 11:53 | PRG ---
DATE OF SERVICE: 07/06/2018 SUBJECTIVE: A 58-year-old female being seen for end-stage kidney disease. The patient denies any nausea, vomiting, or chest pain. OBJECTIVE: VITAL SIGNS: Afebrile, pulse 60, breathing 16, blood pressure 136/60. GENERAL: Awake, alert, in no acute distress. GENERAL APPEARANCE AND MENTAL STATUS: Fair. HEAD/NECK: Normocephalic. Atraumatic. EYES: EOMI. No deformity. EARS: Clear. No ulcers. NOSE: Intact. No lesions. MOUTH: Clear. No discharge. THROAT: Clear. No exudate. LUNGS: Clear. No crackles. CARDIAC: S1, S2. No rub. ABDOMEN: Benign. Bowel sounds positive. GENITALIA/RECTUM: Weeks absent. BACK/EXTREMITIES: Edema 0+. NEUROLOGICAL: Alert and motor intact. LABORATORY DATA: Hemoglobin 11.1. ASSESSMENT AND PLAN: 1. Stage 6 chronic kidney disease, plan dialysis tomorrow. 2. Hypertension, stable. 3. Anemia, stable. 4. Medication based on GFR appropriate. Job ID: [id number]
[2018-07-06] MEDS: Sodium Chloride 0.9% 1,000 ML IV SCH (12:41)
[2018-07-06] MEDS: HumaLOG 300 UNITS/3 ML VIAL SC PRN (17:49)
--- NOTE | 2018-07-06 20:14 | PRG ---
DATE OF SERVICE: 07/06/2018 SUBJECTIVE: The patient denies any new complaints at this time. She still has intermittent coughing. No fever or chills reported. She denies any chest pain, shortness of breath, nausea, vomiting, or diarrhea. REVIEW OF SYSTEMS: As discussed above. No new focal deficit. PHYSICAL EXAMINATION: VITAL SIGNS: Temperature 99.9, pulse rate of 66, respirations 18, blood pressure 136/63, O2 saturation 94% on room air. GENERAL: A 58-year-old female, ill appearing. LUNGS: Showed bibasilar rales with scattered rhonchi. HEART: S1 and S2 present. Regular rate and rhythm. No rubs or gallops appreciated. ABDOMEN: Soft. Bowel sounds present. EXTREMITIES: No edema or calf tenderness. DIAGNOSTIC TESTS: CT of the chest without contrast showed nonspecific peripheral ground-glass and nodular opacities within the right upper lobe and right middle lobe that may reflect infectious/inflammatory nodules. Short-term follow up in 6 to 8 weeks is recommended. Telemetry monitoring by my review showed sinus rhythm. Blood culture 2 of 2 showed Staphylococcal aureus, sensitivities pending. Respiratory viral panel was negative. Influenza testing was negative. CBC showed WBC 16.4 with hemoglobin 11.1, hematocrit 34.6, platelet count of 162. Sodium 133, potassium 4.8, chloride 97, bicarb 25, BUN 37, creatinine 5.23. Lactic acid 1.8. IMPRESSION: 1. Sepsis secondary to pneumonia, suspected pneumococcal. 2. Staphylococcus bacteremia. 3. Pleuritic chest pain secondary to pneumonia. 4. Diabetes mellitus type 2. 5. Hypertension. 6. Hyperlipidemia. 7. End-stage renal disease, on hemodialysis. 8. Hyponatremia. 9. Morbid obesity with BMI of 41. 10. Chronic anemia secondary to renal insufficiency. 11. Gastroesophageal reflux disease. 12. Current medications were reviewed. The patient is currently on Levaquin, Zosyn, and vancomycin. PLAN: Antibiotics will be continued. Infectious Disease team has been consulted. Dialysis per Nephrology. We will recheck labs in a.m. Repeat CT scan in 6 to 8 weeks as recommended. Plan was discussed with the patient. She stated understanding. Job ID: [id number]
[2018-07-06] MEDS: Metoprolol Tartrate 25 MG TAB PO SCH (20:44)
[2018-07-06] MEDS: cloNIDine 0.1 MG TAB PO SCH (20:44)
[2018-07-06] MEDS: NPH, Human Insulin Isophane 300 UNIT/3 ML VIAL SC SCH (20:44)
[2018-07-06] MEDS: Atorvastatin Calcium 20 MG TAB PO SCH (20:44)
[2018-07-07] MEDS: Piperacillin/Tazobactam 2.25 GM in Sodium Chloride 0.9% 100 ML IVPB SCH ×3 (01:10→18:06)
[2018-07-07] MEDS: Sevelamer Carbonate 800 MG TAB PO SCH ×3 (08:22→18:07)
[2018-07-07] MEDS: cloNIDine 0.1 MG TAB PO SCH ×2 (08:22→20:33)
[2018-07-07] MEDS: NPH, Human Insulin Isophane 300 UNIT/3 ML VIAL SC SCH ×2 (08:23→23:20)
[2018-07-07] MEDS: Famotidine 20 MG TAB PO SCH ×2 (08:23→20:34)
[2018-07-07] MEDS: Heparin 5,000 UNITS/ML VIAL SC SCH ×2 (08:23→20:38)
[2018-07-07] MEDS: Metoprolol Tartrate 25 MG TAB PO SCH ×2 (08:23→20:34)
[2018-07-07] MEDS: Aspirin 81 mg Enteric Coated Tablet PO SCH (08:23)
[2018-07-07 09:15] LABS: Vancomycin, Random 25.9 ug/mL (See Comment)
[2018-07-07 09:47] LABS: HBSAg Index 0.21 S/CO (0-0.99); Hep B Surf Ag Non-Reactive S/CO (NonReactive)
--- NOTE | 2018-07-07 10:31 | PRG ---
DATE OF SERVICE: 07/07/2018 SUBJECTIVE: Patient was seen and examined at bedside and overnight events noted. Patient denies any shortness of breath or chest pain or palpitation. No history of nausea or vomiting or diarrhea or fever or chills or cramps. OBJECTIVE: GENERAL: This is an obese female, in no apparent distress. VITAL SIGNS: Temperature 98, pulse 79, respiratory rate 19, blood pressure 128/83. HEENT: Atraumatic, normocephalic. Oral mucosa is moist NECK: Supple. CARDIOVASCULAR: S1, S2 heard. Rate and rhythm regular. RESPIRATORY: Clear to auscultation. GASTROINTESTINAL: Abdomen is soft. MUSCULOSKELETAL: No tenderness. No edema. DERMATOLOGIC: No skin rash. NEUROLOGIC: Alert and awake and oriented X3. No focal neurologic deficits. Moving all the extremities. PSYCHIATRIC: Mood and affect normal. LABORATORY DATA: None done today. ASSESSMENT: 1. End-stage renal disease. Continue dialysis on Saturday, Saturday, and Saturday. 2. Hypertension, stable. 3. Anemia. 4. Edema, controlled at this time. PLAN: Plan is to continue on dialysis as tolerated. Job ID: [id number]
[2018-07-07 12:11] VITALS: BMI 42.0
--- NOTE | 2018-07-07 12:21 | RAD ---
RIGHT WRIST THREE VIEWS: History: Wrist pain and swelling. FINDINGS: The bones appear demineralized. There is some osteoarthritic changes of the radial carpal joint space and triscaphe and first carpal metacarpal joint. I do not appreciate any acute bony abnormalities. S urgical clips are seen along the radius. IMPRESSION: Diffuse bony demineralization with some mild arthritic change of the wrist. POS: TPC
[2018-07-07] MEDS: HumaLOG 300 UNITS/3 ML VIAL SC PRN (13:03)
[2018-07-07] MEDS ORDERED: Heparin 10,000 UNITS/ 10 ML VIAL ONE (15:00)
--- NOTE | 2018-07-07 17:54 | CON ---
DATE OF CONSULTATION: 07/07/2018 REASON FOR CONSULTATION: Bacteremia. HISTORY OF PRESENT ILLNESS: A 58-year-old who has a history of type 2 diabetes, end-stage renal disease, on hemodialysis through an AV fistula, left upper extremity, who was in the usual state of health until pretty much the day before admission when she developed fever, general malaise, cough, and pleuritic chest pain, right side anteriorly. She also has noticed some back pain in the midthoracic area, which is intermittent and some pain in the posterior neck region as well. No headaches. No visual symptoms. No sore throat, odynophagia, or dysphagia. No vomiting. No abdominal pain. Still has some urinary output, but not much. No diarrhea. No joint symptoms. PAST MEDICAL HISTORY: End-stage renal disease, on hemodialysis through an AV fistula due to type 2 diabetes mellitus; chronic smoking; depression; obesity; dyslipidemia; and hypertension. PAST SURGICAL HISTORY: AV fistula placement, amputation of few toes of right and left side. FAMILY HISTORY: Noncontributory. SOCIAL HISTORY: Current smoker. No alcoholic beverage use or drug use. ALLERGIES: NONE. CURRENT MEDICATIONS: 1. [place]. 2. Ecotrin. 3. Lipitor. 4. Dulcolax. 5. Catapres. 6. Glucagon. 7. Pepcid. 8. Insulin. 9. Levofloxacin. 10. Zosyn. PHYSICAL EXAMINATION: VITAL SIGNS: T-max 102 on arrival, she has been afebrile since. Other vital signs not remarkable. GENERAL: Exam shows the accessed left AV fistula during dialysis. She has no Weeks catheter. No areas of skin breakdown. HEENT: Ocular movements conjugate. Oral cavity with no teeth remaining in place. NECK: Supple. No jugular vein distention. No tenderness. BACK: No back tenderness. HEART: S1 and S2, regular rate without murmurs. ABDOMEN: Soft. LUNGS: Symmetric clear breath sounds. EXTREMITIES: No joint inflammatory activity noted. Pulses are diminished in dorsalis pedis, but palpable. Plantar response are flexor. NEUROLOGIC: She is oriented, follows commands. LABORATORY DATA: White cell count is 15,000, now 16,000; hemoglobin 11; and platelets 162 with 82% neutrophils. Sodium 133, creatinine 5.23, and phosphorus 3.6. Liver profile normal. Albumin 3.7. Serology with negative hepatitis surface antigen. Microbiology with Staph aureus, which is methicillin sensitive. 2/2 sets of blood cultures obtained. Reports include a chest CT from July 05 with some nonspecific ground-glass nodular opacities in the right upper lobe and right middle lobe. There is a wrist x-ray done as well with diffuse bony demineralization, but no other changes noted. ASSESSMENT: 1. End-stage renal disease secondary to type 2 diabetes mellitus, on hemodialysis with an arteriovenous fistula. 2. Acute onset of fever with some respiratory symptoms and pleuritic chest pain. 3. Methicillin-susceptible Staphylococcus aureus bacteremia. DISCUSSION: Differential diagnosis includes endocarditis with dissemination to lungs. The possibility of thoracic spine infection needs to be considered. I am not ready yet to order MRI of the spine, but if the pain persists, particularly the one in the C-spine and in the mid thoracic spine, then an MRI without contrast would be in order. Other areas of involvement are not apparent. Check 2D echocardiogram if not ordered yet, may need a ANCELMO. We will treat this with vancomycin sliding scale because of the ease of the administration at dialysis. An alternate would be cefazolin 2 g after each dialytic course of therapy plus oral ciprofloxacin adjusted for renal function. Job ID: [id number]
[2018-07-07] MEDS: Atorvastatin Calcium 20 MG TAB PO SCH (20:34)
[2018-07-07] MEDS: HYDROcodone/Acetaminophen 5/325 mg Tablet PO PRN (20:34)
--- NOTE | 2018-07-07 21:54 | PDOC.PN ---
- Subjective Encounter Start Date: 07/07/18 Encounter Start Time: 10:30 Patient seen and examined for Sepsis. Rt hand pain + due to fall last week at home. No other complaints. No overnight events - Objective Resuscitation Status - Order Detail: 07/05/18 16:18 Resuscitation Status Routine Resuscitation Status: FULL: Full Resuscitation MAR Reviewed: Yes Vital Signs & Weight: Vital Signs (12 hours) Temp Pulse Resp BP BP BP Pulse Ox 07/07/18 20:33 174/71 H 07/07/18 18:15 98.9 F 81 20 168/77 H 92 L 07/07/18 11:52 98.6 F 74 18 135/86 95 Weight Admit Weight 217 lb Weight 222 lb 11.2 oz I&O: 07/06/18 07/07/18 07/08/18 06:59 06:59 06:59 Intake Total 1320 Balance 1320 Result Diagrams: 07/08/18 07:17 07/08/18 07:16 Additional Labs: Accuchecks 07/07/18 07/07/18 07/07/18 18:16 12:39 05:21 POC Glucose 145 H 205 H 152 H EKG Reviewed by me: Yes (Tele SR) Phys Exam - Physical Examination Constitutional: NAD Respiratory: no wheezing, no rhonchi Cardiovascular: RRR, no rub Gastrointestinal: soft, non-tender, positive bowel sounds Neurological: moves all 4 limbs Dx/Plan - Plan DVT proph w/SCDs IMPRESSION: 1. Sepsis secondary to pneumonia, suspected pneumococcal. 2. Staphylococcus bacteremia. 3. Pleuritic chest pain secondary to pneumonia. 4. Diabetes mellitus type 2. 5. Hypertension. 6. Hyperlipidemia. 7. End-stage renal disease, on hemodialysis. 8. Hyponatremia. 9. Morbid obesity with BMI of 41. 10. Chronic anemia secondary to renal insufficiency. 11. Gastroesophageal reflux disease. PLAN: Cont current Atbx Echo to r/o Endocarditis Await ID input Rt wrist XR to r/o # AM labs Cont sliding scale Cont current meds as below Review of Systems - Review of Systems Respiratory: negative: Cough, Dry, Shortness of Breath, Hemoptysis, SOB with Excertion, Pleuritic Pain, Sputum, Wheezing Cardiovascular: negative: chest pain, palpitations, orthopnea, paroxysmal nocturnal dyspnea, edema, light headedness, other - Medications/Allergies Allergies/Adverse Reactions: Allergies Allergy/AdvReac Type Severity Reaction Status Date / Time No Known Drug Allergies Allergy Verified 06/13/16 16:19 Medications: Current Medications Acetaminophen (Tylenol) 650 mg PO Q4H PRN PRN Reason: Headache/Fever/Mild Pain (1-3) Last Admin: 07/05/18 19:49 Dose: 650 mg Hydrocodone Bitart/Acetaminophen ([place] 5/325) 1 tab PO Q4H PRN PRN Reason: Moderate Pain (4-6) Last Admin: 07/07/18 20:34 Dose: 1 tab Aspirin (Ecotrin) 81 mg PO DAILY [facility] Last Admin: 07/07/18 08:23 Dose: 81 mg Atorvastatin Calcium (Lipitor) 20 mg PO HS [facility] Last Admin: 07/07/18 20:34 Dose: 20 mg Bisacodyl (Dulcolax) 10 mg SD DAILYPRN PRN PRN Reason: Constipation Clonidine (Catapres) 0.1 mg PO BID [facility] Last Admin: 07/07/18 20:33 Dose: 0.1 mg Dextrose/Water (Dextrose 50%) 25 gm SLOW IVP PRN PRN PRN Reason: Hypoglycemia Famotidine (Pepcid) 20 mg PO BID [facility] Last Admin: 07/07/18 20:34 Dose: 20 mg Glucagon (Glucagon) 1 mg IM PRN PRN PRN Reason: Hypoglycemia Heparin Sodium (Porcine) (Heparin) 5,000 units SC BID [facility] Last Admin: 07/07/18 08:23 Dose: 5,000 units Levofloxacin 500 mg/ Device 100 mls @ 100 mls/hr IVPB Q2D@1300 [facility] Last Admin: 07/07/18 12:04 Dose: 100 mls Dextrose/Water (D5w) 1,000 mls @ 0 mls/hr IV .Q0M PRN PRN Reason: Hypoglycemia Vancomycin HCl 1.25 gm/ Sodium (Chloride) 250 mls @ 166.667 mls/hr IVPB WILLCALL [facility] Vancomycin HCl 1 gm/ Device 200 mls @ 200 mls/hr IVPB [facility]CALL [facility] Vancomycin HCl 750 mg/ Sodium (Chloride) 250 mls @ 250 mls/hr IVPB [facility] Vancomycin HCl 500 mg/ Sodium (Chloride) 100 mls @ 100 mls/hr IVPB [facility]CALL [facility] Piperacillin Sod/Tazobactam (Sod 2.25 gm/ Sodium Chloride) 100 mls @ 200 mls/ hr IVPB 0100,0900,1700 [facility] Last Admin: 07/07/18 18:06 Dose: 100 mls Insulin Human Lispro (Humalog) 0 units SC .MODERATE SLIDING SC PRN PRN Reason: Moderate Correctional Scale Last Admin: 07/07/18 13:03 Dose: 4 unit Insulin Human NPH (Humulin N) 15 unit SC BID [facility] Last Admin: 07/07/18 08:23 Dose: 15 unit Metoprolol Tartrate (Lopressor) 25 mg PO BID [facility] Last Admin: 07/07/18 20:34 Dose: 25 mg Miscellaneous Medication (Pharmacy To Dose) 1 each IVPB PRN PRN PRN Reason: Pharmacy to dose Miscellaneous Medication (Pharmacy To Dose) 1 each IVPB PRN PRN PRN Reason: Pharmacy to dose Nitroglycerin (Nitrostat) 0.4 mg SL Q5MIN PRN PRN Reason: Chest Pain Hold Vancomycin For (Level >20) 0 each FS .AT DIALYSIS [facility] Ondansetron HCl (Zofran Odt) 4 mg PO Q6H PRN PRN Reason: Nausea/Vomiting Ondansetron HCl (Zofran) 4 mg IVP Q6H PRN PRN Reason: Nausea/Vomiting Last Admin: 07/05/18 21:17 Dose: 4 mg Senna/Docusate Sodium (Senokot S) 2 tab PO BID PRN PRN Reason: Constipation Sevelamer Carbonate (Renvela) 2,400 mg PO TID-[facility] Last Admin: 07/07/18 18:07 Dose: 2,400 mg Sevelamer Carbonate (Renvela) 1,600 mg PO [facility]
[2018-07-08] MEDS: Piperacillin/Tazobactam 2.25 GM in Sodium Chloride 0.9% 100 ML IVPB SCH ×2 (01:22→09:00)
[2018-07-08 07:51] LABS: Hemoglobin 10.6 g/dL (12.0-16.0); Mean Corpuscular HGB CONC 32.7 g/dL (32.0-36.0); Mean Corpuscular Hemoglobin 31.5 pg (27.0-31.0); Mean Corpuscular Volume 96.2 fL (78.0-98.0); Mean Platelet Volume 8.4 fL (7.4-10.4); Platelet Count 203 thou/uL (130-400); RBC Distribution Width 12.2 % (11.5-14.5); Red Blood Cell (RBC) Count 3.36 mill/uL (4.20-5.40); White Blood Cell (WBC) Count 9.6 thou/uL (4.8-10.8)
[2018-07-08 07:54] LABS: Anion Gap 14 mmol/L (10-20); BUN (Urea Nitrogen) 26 mg/dL (9.8-20.1); Calc. Creatinine Clearance 24 mL/min (70-130); Calcium 9.5 mg/dL (7.8-10.44); Carbon Dioxide 27 mmol/L (22-29); Chloride 99 mmol/L (98-107); Estimated GFR-MDRD 11; Glucose 106 mg/dL (70-105); Potassium 4.3 mmol/L (3.5-5.1); Sodium 136 mmol/L (136-145)
[2018-07-08 08:44] LABS: Band 7 % (5-11); Eosinophils 2 % (0-10); Lymphocytes 13 % (21-51); MDiff Complete? YES; Monocytes 6 % (0-10); Neutrophil 72 % (42-75); Platelet Morphology Comment Appears Adequate; RBC Morphology Normal
[2018-07-08] MEDS: Metoprolol Tartrate 25 MG TAB PO SCH ×2 (08:59→20:27)
[2018-07-08] MEDS: Famotidine 20 MG TAB PO SCH ×2 (08:59→20:27)
[2018-07-08] MEDS: Sevelamer Carbonate 800 MG TAB PO SCH ×3 (08:59→16:42)
[2018-07-08] MEDS: cloNIDine 0.1 MG TAB PO SCH ×2 (09:00→20:26)
[2018-07-08] MEDS: Aspirin 81 mg Enteric Coated Tablet PO SCH (09:00)
[2018-07-08] MEDS: Heparin 5,000 UNITS/ML VIAL SC SCH ×2 (09:01→20:27)
[2018-07-08] MEDS: NPH, Human Insulin Isophane 300 UNIT/3 ML VIAL SC SCH ×2 (09:03→22:10)
[2018-07-08] MEDS: HumaLOG 300 UNITS/3 ML VIAL SC PRN ×2 (12:16→16:43)
--- NOTE | 2018-07-08 15:13 | PRG ---
DATE OF SERVICE: 07/08/2018 SUBJECTIVE: Patient was seen and examined at bedside and overnight events noted. Patient denies any shortness of breath or chest pain or palpitation. No history of nausea or vomiting or diarrhea or fever or chills or cramps. OBJECTIVE: GENERAL: This is an obese, female, in no apparent distress. VITAL SIGNS: Temperature 98.7. Heart rate 71. Respiratory rate 20. Blood pressure 141/63. HEENT: Atraumatic, normocephalic. Oral mucosa is moist NECK: Supple. CARDIOVASCULAR: S1, S2 heard. Rate and rhythm regular. RESPIRATORY: Clear to auscultation. GASTROINTESTINAL: Abdomen is soft. MUSCULOSKELETAL: No tenderness. No edema. DERMATOLOGIC: No skin rash. NEUROLOGIC: Alert and awake and oriented X3. No focal neurologic deficits. Moving all the extremities. PSYCHIATRIC: Mood and affect normal. LABORATORY DATA: Potassium 4.3, BUN is 26, creatinine is 4.08. ASSESSMENT AND PLAN: 1. End-stage renal disease. Plan is to continue dialysis on Saturday, Saturday, and Saturday. 2. Hypertension. Seems to be stable. 3. Edema. Remove fluid. 4. Anemia. Monitor. Mild drop in hemoglobin. 5. Obesity. We will continue on dialysis as tolerated. Job ID: [id number]
--- NOTE | 2018-07-08 16:53 | PRG ---
DATE OF SERVICE: 07/08/2018 SUBJECTIVE: The patient denies any headaches. No back pain. Still she does have some back pain, but it is kind of diffuse, it is not localized in a particular area of her spine. No dyspnea. No diarrhea. No abdominal pain. PHYSICAL EXAMINATION: VITAL SIGNS: T-max 99.4, blood pressure 140/63, pulse 71, respirations 20, O2 saturation 94%. LUNGS: Clear. HEART: S1, S2. Regular rate. ABDOMEN: Soft. EXTREMITIES: Left upper extremity AV fistula is not accessed at this time. LABORATORY DATA: White cell count down to 9.6, hemoglobin 10.6, platelets 203, 72% neutrophils, 7% bands. Microbiology with the MSSA identified, currently on vancomycin, Zosyn, and piperacillin tazobactam. Echocardiogram is pending. ASSESSMENT: End-stage renal disease secondary to type 2 diabetes, on hemodialysis with AV fistula and (MSSA) methicillin-susceptible Staph aureus bacteremia with pneumonia. Possibility of endocarditis is high in view of the nature of the areas of pneumonitis, somewhat nodular and bilateral. We will treat as endocarditis for protracted period of time at least 4 weeks, cefazolin 3 g after each dialysis after discharge and oral ciprofloxacin 250 mg twice daily and date of therapy will be August 04. No evidence of other sites of involvement at this point in time. Job ID: [id number]
--- NOTE | 2018-07-08 17:50 | PDOC.PN ---
- Subjective Encounter Start Date: 07/08/18 Encounter Start Time: 11:30 Patient seen and examined for Sepsis/Bacteremia. Some Pleuritic chest pain +. No new complaints. No overnight events - Objective Resuscitation Status - Order Detail: 07/05/18 16:18 Resuscitation Status Routine Resuscitation Status: FULL: Full Resuscitation MAR Reviewed: Yes Vital Signs & Weight: Vital Signs (12 hours) Temp Pulse Resp BP BP Pulse Ox 07/08/18 13:03 98.7 F 71 20 141/63 H 94 L 07/08/18 09:00 170/72 H 94 L 07/08/18 08:24 98.8 F 70 20 170/72 H 94 L Weight Admit Weight 217 lb Weight 222 lb 11.2 oz I&O: 07/07/18 07/08/18 07/09/18 06:59 06:59 06:59 Intake Total 1320 Balance 1320 Result Diagrams: 07/08/18 07:17 07/08/18 07:16 Additional Labs: Accuchecks 07/08/18 07/08/18 07/08/18 16:23 11:41 05:54 POC Glucose 251 H 173 H 131 H 07/07/18 07/07/18 21:46 18:16 POC Glucose 304 H 145 H Phys Exam - Physical Examination Constitutional: NAD Respiratory: no wheezing, no rhonchi B/L scat rales Cardiovascular: RRR, no rub Gastrointestinal: soft, non-tender, positive bowel sounds Musculoskeletal: no edema Neurological: non-focal, moves all 4 limbs Dx/Plan - Plan DVT proph w/heparin, DVT proph w/SCDs IMPRESSION: 1. Sepsis secondary to pneumoni ?pneumococcal. 2. Staphylococcus bacteremia. ?suspected Endocarditis 3. Pleuritic chest pain secondary to pneumonia. 4. Diabetes mellitus type 2. 5. Hypertension. 6. Hyperlipidemia. 7. End-stage renal disease, on hemodialysis. 8. Hyponatremia. 9. Morbid obesity with BMI of 41. 10. Chronic anemia secondary to renal insufficiency. 11. Gastroesophageal reflux disease. PLAN: Echo done - report pending ID following Cont sliding scale/current meds as below Cont current Atbx Review of Systems - Review of Systems Respiratory: Pleuritic Pain. negative: Cough, Dry, Shortness of Breath, Hemoptysis, SOB with Excertion, Sputum, Wheezing Cardiovascular: negative: chest pain, palpitations, orthopnea, paroxysmal nocturnal dyspnea, edema, light headedness, other - Medications/Allergies Allergies/Adverse Reactions: Allergies Allergy/AdvReac Type Severity Reaction Status Date / Time No Known Drug Allergies Allergy Verified 06/13/16 16:19 Medications: Current Medications Acetaminophen (Tylenol) 650 mg PO Q4H PRN PRN Reason: Headache/Fever/Mild Pain (1-3) Last Admin: 07/05/18 19:49 Dose: 650 mg Hydrocodone Bitart/Acetaminophen ([place] 5/325) 1 tab PO Q4H PRN PRN Reason: Moderate Pain (4-6) Last Admin: 07/07/18 20:34 Dose: 1 tab Aspirin (Ecotrin) 81 mg PO DAILY [facility] Last Admin: 07/08/18 09:00 Dose: 81 mg Atorvastatin Calcium (Lipitor) 20 mg PO HS [facility] Last Admin: 07/07/18 20:34 Dose: 20 mg Bisacodyl (Dulcolax) 10 mg [place] DAILYPRN PRN PRN Reason: Constipation Clonidine (Catapres) 0.1 mg PO BID [facility] Last Admin: 07/08/18 09:00 Dose: 0.1 mg Dextrose/Water (Dextrose 50%) 25 gm SLOW IVP PRN PRN PRN Reason: Hypoglycemia Famotidine (Pepcid) 20 mg PO BID [facility] Last Admin: 07/08/18 08:59 Dose: 20 mg Glucagon (Glucagon) 1 mg IM PRN PRN PRN Reason: Hypoglycemia Heparin Sodium (Porcine) (Heparin) 5,000 units SC BID [facility] Last Admin: 07/08/18 09:01 Dose: 5,000 units Levofloxacin 500 mg/ Device 100 mls @ 100 mls/hr IVPB Q2D@1300 [facility] Last Admin: 07/07/18 12:04 Dose: 100 mls Dextrose/Water (D5w) 1,000 mls @ 0 mls/hr IV .Q0M PRN PRN Reason: Hypoglycemia Cefazolin Sodium 1 gm/ Sodium (Chloride) 100 mls @ 200 mls/hr IVPB DAILY [facility] Insulin Human Lispro (Humalog) 0 units SC .MODERATE SLIDING SC PRN PRN Reason: Moderate Correctional Scale Last Admin: 07/08/18 16:43 Dose: 6 unit Insulin Human NPH (Humulin N) 15 unit SC BID [facility] Last Admin: 07/08/18 09:03 Dose: 15 unit Metoprolol Tartrate (Lopressor) 25 mg PO BID [facility] Last Admin: 07/08/18 08:59 Dose: 25 mg Miscellaneous Medication (Pharmacy To Dose) 1 each IVPB PRN PRN PRN Reason: Pharmacy to dose Nitroglycerin (Nitrostat) 0.4 mg SL Q5MIN PRN PRN Reason: Chest Pain Ondansetron HCl (Zofran Odt) 4 mg PO Q6H PRN PRN Reason: Nausea/Vomiting Ondansetron HCl (Zofran) 4 mg IVP Q6H PRN PRN Reason: Nausea/Vomiting Last Admin: 07/05/18 21:17 Dose: 4 mg Senna/Docusate Sodium (Senokot S) 2 tab PO BID PRN PRN Reason: Constipation Sevelamer Carbonate (Renvela) 2,400 mg PO TID-[facility] Last Admin: 07/08/18 16:42 Dose: 2,400 mg Sevelamer Carbonate (Renvela) 1,600 mg PO [facility]
[2018-07-08] MEDS: Atorvastatin Calcium 20 MG TAB PO SCH (20:27)
[2018-07-08] MEDS: HYDROcodone/Acetaminophen 5/325 mg Tablet PO PRN (20:28)
[2018-07-09] MEDS: HYDROcodone/Acetaminophen 5/325 mg Tablet PO PRN ×2 (01:05→21:12)
[2018-07-09] MEDS: Metoprolol Tartrate 25 MG TAB PO SCH ×2 (08:24→21:06)
[2018-07-09] MEDS: cloNIDine 0.1 MG TAB PO SCH ×2 (08:24→21:05)
[2018-07-09] MEDS: Famotidine 20 MG TAB PO SCH ×2 (08:24→21:06)
[2018-07-09] MEDS: Sevelamer Carbonate 800 MG TAB PO SCH ×3 (08:24→18:22)
[2018-07-09] MEDS: Aspirin 81 mg Enteric Coated Tablet PO SCH (08:24)
[2018-07-09] MEDS: Heparin 5,000 UNITS/ML VIAL SC SCH ×2 (08:25→21:06)
[2018-07-09] MEDS: HumaLOG 300 UNITS/3 ML VIAL SC PRN ×3 (08:26→21:06)
[2018-07-09] MEDS: NPH, Human Insulin Isophane 300 UNIT/3 ML VIAL SC SCH ×2 (08:27→21:06)
[2018-07-09] MEDS ORDERED: Ketorolac Tromethamine 30 MG/ML VIAL IVP SCH (12:00)
--- NOTE | 2018-07-09 12:23 | PRG ---
DATE OF SERVICE: 07/09/2018 SUBJECTIVE: Patient was seen and examined at bedside and overnight events noted. Patient denies any shortness of breath or chest pain or palpitation. No history of nausea or vomiting or diarrhea or fever or chills or cramps. OBJECTIVE: GENERAL: This is an obese female in no acute distress. VITAL SIGNS: Temperature 97.8. Pulse 73, respiratory rate 20, blood pressure 158/83. HEENT: Atraumatic, normocephalic. Oral mucosa is moist NECK: Supple. CARDIOVASCULAR: S1, S2 heard. Rate and rhythm regular. RESPIRATORY: Clear to auscultation. GASTROINTESTINAL: Abdomen is soft. MUSCULOSKELETAL: No tenderness. No edema. DERMATOLOGIC: No skin rash. NEUROLOGIC: Alert and awake and oriented X3. No focal neurologic deficits. Moving all the extremities. PSYCHIATRIC: Mood and affect normal. LABORATORY DATA: ASSESSMENT AND PLAN: 1. End-stage renal disease requiring dialysis. 2. Hypertension, stable. 3. Edema. Remove fluid. 4. Anemia, monitor. 5. Obesity. 6. We will continue dialysis as tolerated. Job ID: [id number]
[2018-07-09 12:46] LABS: Vancomycin, Random 14.5 ug/mL (See Comment)
[2018-07-09] MEDS ORDERED: Ibuprofen 200 MG TAB PO PRN (18:00)
--- NOTE | 2018-07-09 18:56 | PRG ---
DATE OF SERVICE: 07/09/2018 SUBJECTIVE: Ms. Bright denies any headaches. No shortness of breath or cough. No abdominal pain. OBJECTIVE: VITAL SIGNS: Temperature max 99.8, BP 150/78, pulse 70, respirations 18, O2 saturation 97%. GENERAL: Appears in no distress. LUNGS: Clear. HEART: S1, S2. Regular rate. ABDOMEN: Soft, not distended. EXTREMITIES: No joint inflammatory activity. LABORATORY DATA: White cell count 9.6, hemoglobin 10.6, platelets 203. The microbiology with MSSA. ASSESSMENT AND DISCUSSION: End-stage renal disease secondary to type 2 diabetes, on hemodialysis with AV fistula and methicillin-sensitive Staph aureus bacteremia with pneumonia, possible endocarditis. Plan is to treat with cefazolin 3 g after each dialysis plus oral Cipro adjusted for renal function. End date of therapy will be August 04. Monitor spine and other bone joints for possible . Job ID: [id number]
[2018-07-09] MEDS: Atorvastatin Calcium 20 MG TAB PO SCH (21:06)
--- NOTE | 2018-07-09 22:42 | PDOC.PN ---
- Subjective Encounter Start Date: 07/09/18 Encounter Start Time: 11:00 Patient seen and examined for Sepsis/Bacteremia. Intermittent Rt sided Pleuritic CP. No other complaints. No overnight events - Objective Resuscitation Status - Order Detail: 07/05/18 16:18 Resuscitation Status Routine Resuscitation Status: FULL: Full Resuscitation MAR Reviewed: Yes Vital Signs & Weight: Vital Signs (12 hours) Temp Pulse Resp BP BP BP Pulse Ox 07/09/18 21:05 158/83 H 07/09/18 20:00 99.0 F 76 20 170/60 H 94 L 07/09/18 18:29 98.2 F 85 20 164/74 H 97 07/09/18 12:25 98.1 F 70 18 155/78 H 97 Weight Admit Weight 217 lb Weight 222 lb 11.2 oz I&O: 07/08/18 07/09/18 07/10/18 06:59 06:59 06:59 Intake Total 800 750 Balance 800 750 Result Diagrams: 07/08/18 07:17 07/08/18 07:16 Additional Labs: Accuchecks 07/09/18 07/09/18 07/09/18 20:28 18:22 12:33 POC Glucose 274 H 167 H 112 H 07/09/18 05:26 POC Glucose 290 H Phys Exam - Physical Examination Constitutional: NAD Respiratory: no wheezing, no rhonchi Cardiovascular: RRR, no rub Gastrointestinal: soft, non-tender Musculoskeletal: no edema Neurological: moves all 4 limbs Dx/Plan - Plan DVT proph w/SCDs IMPRESSION: 1. Sepsis secondary to pneumonia ?pneumococcal. 2. Staphylococcus bacteremia. ?suspected Endocarditis 3. Pleuritic chest pain secondary to pneumonia. 4. Diabetes mellitus type 2 - on sliding scale 5. Hypertension. 6. Hyperlipidemia. 7. End-stage renal disease, on hemodialysis. 8. Hyponatremia. 9. Morbid obesity with BMI of 41. 10. Chronic anemia secondary to renal insufficiency. 11. Gastroesophageal reflux disease. PLAN: Echo pending Dialysis today Cont current meds as below Cont current Atbx Outpt Atbx setup Review of Systems - Review of Systems Respiratory: negative: Cough, Dry, Shortness of Breath, Hemoptysis, SOB with Excertion, Pleuritic Pain, Sputum, Wheezing Cardiovascular: negative: chest pain, palpitations, orthopnea, paroxysmal nocturnal dyspnea, edema, light headedness, other - Medications/Allergies Allergies/Adverse Reactions: Allergies Allergy/AdvReac Type Severity Reaction Status Date / Time No Known Drug Allergies Allergy Verified 06/13/16 16:19 Medications: Current Medications Acetaminophen (Tylenol) 650 mg PO Q4H PRN PRN Reason: Headache/Fever/Mild Pain (1-3) Last Admin: 07/05/18 19:49 Dose: 650 mg Hydrocodone Bitart/Acetaminophen ([place] 5/325) 1 tab PO Q4H PRN PRN Reason: Moderate Pain (4-6) Last Admin: 07/09/18 21:12 Dose: 1 tab Aspirin (Ecotrin) 81 mg PO DAILY [facility] Last Admin: 07/09/18 08:24 Dose: 81 mg Atorvastatin Calcium (Lipitor) 20 mg PO HS [facility] Last Admin: 07/09/18 21:06 Dose: 20 mg Bisacodyl (Dulcolax) 10 mg [place] DAILYPRN PRN PRN Reason: Constipation Clonidine (Catapres) 0.1 mg PO BID [facility] Last Admin: 07/09/18 21:05 Dose: 0.1 mg Dextrose/Water (Dextrose 50%) 25 gm SLOW IVP PRN PRN PRN Reason: Hypoglycemia Famotidine (Pepcid) 20 mg PO BID [facility] Last Admin: 07/09/18 21:06 Dose: 20 mg Glucagon (Glucagon) 1 mg IM PRN PRN PRN Reason: Hypoglycemia Heparin Sodium (Porcine) (Heparin) 5,000 units SC BID [facility] Last Admin: 07/09/18 21:06 Dose: 5,000 units Levofloxacin 500 mg/ Device 100 mls @ 100 mls/hr IVPB Q2D@1300 [facility] Last Admin: 07/09/18 12:33 Dose: 100 mls Dextrose/Water (D5w) 1,000 mls @ 0 mls/hr IV .Q0M PRN PRN Reason: Hypoglycemia Cefazolin Sodium/Dextrose (Ancef) 50 mls @ 100 mls/hr IVPB DAILY [facility] Last Admin: 07/09/18 09:33 Dose: 50 mls Ibuprofen (Motrin) 400 mg PO Q6H PRN PRN Reason: Pain Insulin Human Lispro (Humalog) 0 units SC .MODERATE SLIDING SC PRN PRN Reason: Moderate Correctional Scale Last Admin: 07/09/18 21:06 Dose: 6 unit Insulin Human NPH (Humulin N) 15 unit SC BID [facility] Last Admin: 07/09/18 21:06 Dose: 15 unit Metoprolol Tartrate (Lopressor) 25 mg PO BID [facility] Last Admin: 07/09/18 21:06 Dose: 25 mg Miscellaneous Medication (Pharmacy To Dose) 1 each IVPB PRN PRN PRN Reason: Pharmacy to dose Nitroglycerin (Nitrostat) 0.4 mg SL Q5MIN PRN PRN Reason: Chest Pain Ondansetron HCl (Zofran Odt) 4 mg PO Q6H PRN PRN Reason: Nausea/Vomiting Ondansetron HCl (Zofran) 4 mg IVP Q6H PRN PRN Reason: Nausea/Vomiting Last Admin: 07/05/18 21:17 Dose: 4 mg Senna/Docusate Sodium (Senokot S) 2 tab PO BID PRN PRN Reason: Constipation Sevelamer Carbonate (Renvela) 2,400 mg PO TID-[facility] Last Admin: 07/09/18 18:22 Dose: 2,400 mg Sevelamer Carbonate (Renvela) 1,600 mg PO [facility] Sodium Chloride (Flush - Normal Saline) 10 ml IVF Q12HR [facility] Last Admin: 07/09/18 21:07 Dose: 10 ml Sodium Chloride (Flush - Normal Saline) 10 ml IVF PRN PRN PRN Reason: Saline Flush Last Admin: 07/09/18 12:34 Dose: 10 ml
[2018-07-10] MEDS: Sevelamer Carbonate 800 MG TAB PO SCH ×2 (08:08→13:07)
[2018-07-10] MEDS: Aspirin 81 mg Enteric Coated Tablet PO SCH (08:09)
[2018-07-10] MEDS: Famotidine 20 MG TAB PO SCH (08:09)
[2018-07-10] MEDS: cloNIDine 0.1 MG TAB PO SCH (08:09)
[2018-07-10] MEDS: Metoprolol Tartrate 25 MG TAB PO SCH (08:09)
[2018-07-10] MEDS: NPH, Human Insulin Isophane 300 UNIT/3 ML VIAL SC SCH (08:09)
[2018-07-10] MEDS: HYDROcodone/Acetaminophen 5/325 mg Tablet PO PRN (08:56)
--- NOTE | 2018-07-10 10:57 | PRG ---
DATE OF SERVICE: 07/10/2018 SUBJECTIVE: Patient was seen and examined at bedside and overnight events noted. Patient denies any shortness of breath or chest pain or palpitation. No history of nausea or vomiting or diarrhea or fever or chills or cramps. OBJECTIVE: GENERAL: This is an obese female, in no apparent distress. VITAL SIGNS: Temperature 98.3. Heart rate 72. Respiratory rate . Blood pressure 156/70. HEENT: Atraumatic, normocephalic. Oral mucosa is moist NECK: Supple. CARDIOVASCULAR: S1, S2 heard. Rate and rhythm regular. RESPIRATORY: Clear to auscultation. GASTROINTESTINAL: Abdomen is soft. MUSCULOSKELETAL: No tenderness. No edema. DERMATOLOGIC: No skin rash. NEUROLOGIC: Alert and awake and oriented x3. No focal neurologic deficits. Moving all the extremities. PSYCHIATRIC: Mood and affect normal. LABORATORY DATA: ASSESSMENT AND PLAN: 1. End-stage renal disease. Continue on hemodialysis as tolerated. Plan is to continue on Saturday, Saturday, and Saturday. 2. Bacteremia. Plan is to continue cefazolin with 3 g with each dialysis. Dialysis nurse notified at dialysis clinic, and Case Management to sent an order. Stop date is August 04. 3. Hypertension. 4. Edema. 5. Anemia. 6. Obesity. 7. Continue antibiotics with dialysis. Follow up with ID. We will follow. Job ID: [id number]
[2018-07-10 12:04] VITALS: BP 182/71; TEMP 98
--- NOTE | 2018-07-10 18:10 | DIS ---
DATE OF ADMISSION: 07/05/2018 DATE OF DISCHARGE: 07/10/2018 DISCHARGE DISPOSITION: Home. FOLLOWUP: 1. Follow up with Dr. Toñito Stinson in 1 week. 2. Follow up with Dr. Ward, Infectious Disease in 2 to 3 weeks. 3. Follow up with Dr. Hickey for dialysis. ALLERGIES: NO KNOWN DRUG ALLERGIES. DISCHARGE MEDICATIONS: 1. Ancef 3 g post dialysis until August 04. 2. Ciprofloxacin 250 mg twice a day until August 04. All other home medications were left unchanged. The patient was seen on the day of discharge. Denies any new complaints. No chest pain, shortness of breath, palpitations, fever, or chills reported. TEST PENDING AT THIS TIME: Echocardiogram report. BRIEF HOSPITAL COURSE: The patient is a 58-year-old female with end-stage renal disease, on hemodialysis; hypertension; diabetes mellitus, type 2, presented to the hospital with fever, chills, and cough of 2 days duration. Please refer to the history and physical dated July 05, 2018, for further details. The patient was admitted to the hospital with a diagnosis of sepsis secondary to pneumonia. Blood culture came back positive for MSSA, two of two. She was placed on IV antibiotics. She was evaluated by Infectious Disease, Dr. Ward, who recommended Ancef 3 g post dialysis along with ciprofloxacin 250 mg twice a day until August 04. Echocardiogram has been done two days ago; however, official report is pending. I discussed with hydro plant technician, who did not see any endocarditis. I was unable to get the echocardiogram report on the day of discharge. The patient underwent dialysis per Nephrology. She has been cleared by Infectious Disease as well as Nephrology for discharge. FINAL DIAGNOSES: 1. Sepsis secondary to pneumonia, suspected pneumococcal. 2. Staphylococcal bacteremia, two of two. 3. Pleuritic chest pain secondary to pneumonia. 4. Diabetes mellitus, type 2. 5. Hypertension. 6. Hyperlipidemia. 7. End-stage renal disease, on hemodialysis. 8. Hyponatremia. 9. Morbid obesity with a BMI of 41. 10. Chronic anemia secondary to renal insufficiency. 11. Gastroesophageal reflux disease. Total time coordinating the discharge of this patient was 32 minutes. SIGNIFICANT LABORATORY DATA: 1. WBC 15.2 on admission and 9.6 after 2 days. 2. Troponin was negative. Lactic acid 1.0. 3. CT scan of the chest showed nonspecific changes in the right upper lobe and the right middle lobe consistent with infectious versus inflammatory nodules. Short-term followup in 6 to 8 weeks is recommended. 4. Right wrist x-ray was negative for fractures. This was done due to history of fall 2 to 3 weeks ago[address] 5. Follow[address] scan of the chest in 6 to 8 weeks is recommended per Radiology. PLAN: Plan was discussed with the patient in detail. She stated understanding. Job ID: [id number]
== END 2018-07-10 13:22 | disposition home or self-care (01) | DRG 871 ==
LOC: ERS 09:34 → T4-A 13:10 → 2NO 18:12 → T4-B 07-07 13:04
PROVIDERS: ADMIT Internal Medicine Nephrology; ATTEND Internal Medicine Nephrology
PROC: 5A1D70Z Performance of Urinary Filtration, Intermittent, Less than 6 Hours Per Day (ICD-10-PCS; principal; 2018-07-05)
DX: A41.01 Sepsis due to Methicillin susceptible Staphylococcus aureus (principal); N18.6 End stage renal disease; J18.9 Pneumonia, unspecified organism; I12.0 Hypertensive chronic kidney disease with stage 5 chronic kidney disease or end stage renal disease; N25.81 Secondary hyperparathyroidism of renal origin; Z68.41 Body mass index [BMI] 40.0-44.9, adult; E87.1 Hypo-osmolality and hyponatremia; E11.22 Type 2 diabetes mellitus with diabetic chronic kidney disease; Z99.2 Dependence on renal dialysis; E78.5 Hyperlipidemia, unspecified; Z89.421 Acquired absence of other right toe(s); D63.1 Anemia in chronic kidney disease; F17.210 Nicotine dependence, cigarettes, uncomplicated; E66.01 Morbid (severe) obesity due to excess calories; K21.9 Gastro-esophageal reflux disease without esophagitis
CPT/HCPCS: 36415; 36416; 71046; 71250; 80048; 80053; 80069; 80202; 82550; 83605; 84484; 85007; 85025; 85027; 87040; 87077; 87149; 87186; 87340; 87633; 87804; 90935; 93005; 93306; 96361; 96365; 96367; 96375; 99406; G0257; J0690; J1644; J1650; J1815; J1885; J1956; J2270; J2405; J2543; J3370; J7050

== ENCOUNTER 2018-10-17 20:30 | Outpatient (CLI) | payer MEDICARE, MEDICAID | END 2018-10-17 20:31 | disposition home or self-care (01) | LOC: SLEEPLAB 20:30 | PROVIDERS: ATTEND Internal Medicine Critical Care Medicine | DX: G47.33 Obstructive sleep apnea (adult) (pediatric) (principal); R53.83 Other fatigue; I10 Essential (primary) hypertension; E11.9 Type 2 diabetes mellitus without complications; I25.10 Atherosclerotic heart disease of native coronary artery without angina pectoris; G47.31 Primary central sleep apnea | CPT/HCPCS: 95811 ==

== ENCOUNTER 2018-10-27 10:53 | Observation (INO) | payer MEDICARE, MEDICAID ==
[2018-10-27 11:43] LABS: #Basophils 0.1 thou/uL (0.0-0.2); #Eosinphils 0.3 thou/uL (0.0-0.7); #Lymphocytes 1.4 thou/uL (1.20-3.40); #Monocytes 0.6 thou/uL (0.11-0.59); %Basophils 0.6 % (0.0-1.0); %Eosinophils 3.4 % (0.0-10.0); %Lymphocytes 15.3 % (21.0-51.0); %Monocytes 6.2 % (0.0-10.0); %Neutrophils 74.4 % (42.0-75.0); Hemoglobin 11.8 g/dL (12.0-16.0); Mean Corpuscular Hemoglobin 31.8 pg (27.0-31.0); Mean Corpuscular Volume 96.4 fL (78.0-98.0); Mean Platelet Volume 7.8 fL (7.4-10.4); Platelet Count 205 thou/uL (130-400); RBC Distribution Width 13.1 % (11.5-14.5); Red Blood Cell (RBC) Count 3.73 mill/uL (4.20-5.40); White Blood Cell (WBC) Count 9.4 thou/uL (4.8-10.8)
--- NOTE | 2018-10-27 11:43 | RAD ---
PORTABLE CHEST 1 VIEW: DATE: 10/27/2018. TIME: 11:16 a.m. HISTORY: Chest pain. The patient is on dialysis. FINDINGS: Comparison is made with the exam of 07/05/2018. The heart size is normal. There is continued elevation of the right hemidiaphragm. No lobar consoli dation, pneumothoraces, mary pulmonary edema, or pleural effusions are seen. There are degenerative changes in the spine. IMPRESSION: No acute process. POS: DINO
[2018-10-27 12:04] LABS: ALT (SGPT) 10 U/L (8-55); AST (SGOT) 13 U/L (5-34); Albumin 4.1 g/dL (3.5-5.0); Alkaline Phosphatase 93 U/L (40-150); Anion Gap 16 mmol/L (10-20); BUN (Urea Nitrogen) 23 mg/dL (9.8-20.1); Bilirubin, Total 0.4 mg/dL (0.2-1.2); CK (CPK) 51 U/L (29-168); Calc. Creatinine Clearance 0 mL/min (70-130); Calcium 9.3 mg/dL (7.8-10.44); Carbon Dioxide 31 mmol/L (22-29); Chloride 96 mmol/L (98-107); Estimated GFR-MDRD 13; Globulin 2.7 g/dL (2.4-3.5); Glucose 365 mg/dL (70-105); Lipase 12 U/L (8-78); Potassium 4.7 mmol/L (3.5-5.1); Protein, Total 6.8 g/dL (6.0-8.3); Sodium 138 mmol/L (136-145)
[2018-10-27] MEDS ORDERED: Aspirin Chewable 81 MG TAB ONE (12:53)
[2018-10-27] MEDS ORDERED: Insulin Regular 300 UNITS/3 ML VIAL ONE (12:54)
[2018-10-27] MEDS ORDERED: Nitroglycerin 2% Ointment 1 INCH/1 GM Packet ONE (12:54)
[2018-10-27 14:55] LABS: Troponin I 0.025 ng/mL (< 0.028)
--- NOTE | 2018-10-27 15:05 | HP ---
PRIMARY CARE PROVIDER: Dr. Claudia Driver. HISTORY OF PRESENT ILLNESS: The patient was at hemodialysis, felt a popping in her head and her neck, went around to her chest. She had a sharp pain that lasted 10 to 20 minutes. They put a pill under her tongue. She got a headache. She was short of breath with it, had some sweats with it. It is pertinent that she has lateral limb lead ST-T changes on her EKG. PAST MEDICAL HISTORY: Pertinent for end-stage renal disease on Saturday, Saturday, Saturday hemodialysis; hypertension; diabetes mellitus, type 2; dyslipidemia; tobacco abuse. CURRENT MEDICATIONS: 1. Aspirin 81 mg a day. 2. Amlodipine 5 mg a day. 3. Lipitor 20 mg a day. 4. Pepcid 20 mg twice a day. 5. Metoprolol 50 mg twice a day. 6. Auryxia two tabs twice a day. 7. Clonidine patch TTS-1 change weekly. 8. NovoLog 70/30 thirty five units subcu twice a day. 9. Zoloft 50 mg a day. ALLERGIES: NO KNOWN DRUG ALLERGIES. 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 SOCIAL HISTORY: Smokes off and on up to half a pack a week. No alcohol or drug use. Full code status. FAMILY HISTORY: Father in , young. No premature coronary artery disease noted. Some family members with diabetes. REVIEW OF SYSTEMS: HEAD: No headaches, dizziness, or fainting. EYES: Chronic blurred vision. She is blind in the right eye. EAR, NOSE, AND THROAT: No ear pain or drainage. No nasal bleeding. No trouble swallowing. CARDIAC: See present illness. No chest pressure, chest pain, orthopnea, or paroxysmal nocturnal dyspnea. RESPIRATIONS: Occasional cough. No wheezing or asthma. GASTROINTESTINAL: She had one episode of diarrhea yesterday. No abdominal pain , constipation, nausea, vomiting. GENITOURINARY: She does still make urine. No blood in her urine. No pain. MUSCULOSKELETAL: No pain or swelling in her arms or legs. NEUROLOGICAL: No strokes, seizures, or focal weakness. PSYCHIATRIC: She has depression, takes Zoloft, currently compensated. SKIN: Easy bruising. No rash. HEME/LYMPH: No tender or swollen lymph nodes in axilla, inguinal, or cervical area. PHYSICAL EXAMINATION: GENERAL: Alert, cooperative, pleasant, no distress. VITAL SIGNS: Blood pressure 196/85, pulse 70, respirations 22, O2 saturation 99 on room air. HEAD, EYES, EARS, NOSE, AND THROAT: Pupils are equal and round. Left pupil is reactive. Extraocular movements are intact. Sclerae are white. Tympanic membranes clear. Nose clear. Oral mucous membranes are wet. She has edentulous. NECK: No jugular venous distention, adenopathy, or thyromegaly. CHEST: Clear to auscultation and percussion. HEART: Had a regular rate and rhythm, first and second heart sounds are clear. There are no appreciated murmurs or gallops. ABDOMEN: Soft. Bowel sounds are normal. There is no hepatosplenomegaly. No mass. No rebound or bruits. EXTREMITIES: Revealed no cyanosis, clubbing, or edema. PULSES: Carotid, radial, femoral, and dorsalis pedis pulses intact. Pedal pulses are diminished. SKIN: Warm and dry without significant bruising or rash. HEME/LYMPH: No tender or swollen lymph nodes in axilla, inguinal, or cervical area. NEUROLOGIC: Cranial nerves 2 through 12, the right pupil is unreactive. Deep tendon reflexes were absent in the legs. She moves all extremities. DIAGNOSTIC IMPRESSION: Chest x-ray; no cardiomegaly, CHF, or infiltrate reviewed by me. EKG, regular sinus rhythm with nonspecific ST-T abnormality in the lateral limb leads and precordial leads reviewed by me. LABORATORY DATA: CBC has a hemoglobin of 11.8, otherwise normal. Sodium 138, potassium 4.7, chloride 96, CO2 of 31, BUN 23, creatinine 3.65 troponin 0.16, blood sugar 365. ADMITTING DIAGNOSES: Atypical chest pain, end-stage renal disease, on hemodialysis; diabetes mellitus, type 2; hypertension and dyslipidemia. PLAN: Aspirin. Serial enzymes. Continue home medicines. Accu-Chek sliding scale. Pharmacological Cardiolite stress test in a.m. Job ID: [id number] MTDD
[2018-10-27] MEDS ORDERED: Nitroglycerin 0.4 MG TAB (25 Tab Bottle) PO PRN (16:33)
[2018-10-27] MEDS ORDERED: Dextrose 50% Abboject 50 ML SYRINGE SLOW IVP PRN (16:33)
[2018-10-27] MEDS ORDERED: Dextrose 5% in Water 1,000 ML IV PRN (16:33)
[2018-10-27] MEDS: Insulin Regular 300 UNITS/3 ML VIAL SC PRN (16:55)
[2018-10-27 17:09] VITALS: BMI 50.7
[2018-10-27] MEDS ORDERED: Sevelamer Carbonate 800 MG TAB PO PRN (18:00)
[2018-10-27 18:27] LABS: Troponin I 0.023 ng/mL (< 0.028)
--- NOTE | 2018-10-27 18:37 | CON ---
DATE OF CONSULTATION: 10/27/2018 CONSULTING PHYSICIAN: Anjali Hough MD REASON FOR CONSULTATION: End-stage renal disease evaluation and care. REASON FOR ADMISSION: Chest pain. HISTORY OF PRESENT ILLNESS: A 58-year-old female with history of end-stage renal disease, hypertension, and type 2 diabetes, came to the hospital with chest pain. The patient was at dialysis today and was not feeling well. She has been having chest pain and she went to [facility] also recently without much workup. The patient denies any nausea or vomiting. No fever or chills. No skin rash. No abdominal pain. No diarrhea. PAST MEDICAL HISTORY: Positive for end-stage renal disease, type 2 diabetes, hypertension, hyperlipidemia, and tobacco use. PAST SURGICAL HISTORY: Dialysis access placement and amputation. HOME MEDICATIONS: 1. Aspirin. 2. Amlodipine. 3. Lipitor. 4. Pepcid. 5. Metoprolol. 6. Auryxia. 7. Clonidine. 8. NovoLog. 9. Zoloft. ALLERGIES: NO KNOWN DRUG ALLERGIES. SOCIAL HISTORY: Smokes on and off. No alcohol or illicit drug abuse. FAMILY HISTORY: Positive for coronary artery disease and end-stage renal disease. REVIEW OF SYSTEMS: CONSTITUTIONAL: Negative for weight loss or gain, ability to conduct usual activities. SKIN: Negative for rash, itching. EYES: Negative for double vision, pain. ENT/MOUTH: Negative for nose bleeding, neck stiffness, pain, tenderness. CARDIOVASCULAR: Negative for palpitations, dyspnea on exertion, orthopnea. RESPIRATORY: Negative for shortness of breath, wheezing, cough, hemoptysis, fever or night sweats. GASTROINTESTINAL: Negative for poor appetite, abdominal pain, heartburn, nausea, vomiting, constipation, or diarrhea. GENITOURINARY: Negative for urgency, frequency, dysuria, nocturia. MUSCULOSKELETAL: Negative for pain, swelling. NEUROLOGIC/PSYCHIATRIC: Negative for anxiety, depression. ALLERGY/IMMUNOLOGIC: Negative for skin rash, bleeding tendency. Rest all negative. PHYSICAL EXAMINATION: GENERAL: Reveals a morbidly obese female, in no apparent distress. VITAL SIGNS: Temperature 99.2, pulse 77, respiratory rate 18, and blood pressure 166/72. HEENT: Head is atraumatic and normocephalic. Oral mucosa is moist. NECK: Supple. CV: S1 and S2 heard. Rate and rhythm are regular. RESPIRATORY: Clear. GASTROINTESTINAL: Abdomen is soft. MUSCULOSKELETAL: A 1+ edema. DERMATOLOGIC: No skin rash. NEUROLOGIC: Alert and awake. PSYCHIATRIC: Normal mood and affect. LABORATORY DATA: Hemoglobin 11.8. Potassium 4.7, BUN is 63, and creatinine is 3.6. ASSESSMENT AND PLAN: 1. End-stage renal disease. Continue dialysis Saturday, Saturday, and Saturday. 2. Hypertension, stable. 3. Anemia. We will monitor. 4. Edema, controlled. Plan to continue on dialysis Saturday, Saturday, and Saturday as tolerated. We will follow. Thank you for the consult. Job ID: [id number]
[2018-10-27] MEDS ORDERED: Acetaminophen 325 MG TAB PO PRN (19:39)
[2018-10-27] MEDS: cloNIDine 0.1 MG TAB PO SCH (19:54)
[2018-10-27] MEDS: Metoprolol Tartrate 50 MG TAB PO SCH (19:54)
[2018-10-27] MEDS ORDERED: Famotidine 20 MG TAB PO SCH (21:00)
[2018-10-27] MEDS ORDERED: Atorvastatin Calcium 20 MG TAB PO SCH (21:00)
[2018-10-27] MEDS ORDERED: Insulin Regular 300 UNITS/3 ML VIAL SC PRN (21:11)
[2018-10-27] MEDS ORDERED: Acetaminophen/Codeine 30-300mg Tablet PO PRN (23:45)
[2018-10-28] MEDS: cloNIDine 0.1 MG TAB PO SCH (07:25)
[2018-10-28] MEDS: Metoprolol Tartrate 50 MG TAB PO SCH ×2 (07:26→10:37)
[2018-10-28] MEDS: Sevelamer Carbonate 800 MG TAB PO SCH ×2 (07:26→10:38)
[2018-10-28] MEDS ORDERED: HumuLIN 70/30 (300 UNITS/3 ML VIAL) SC SCH (07:30)
[2018-10-28] MEDS ORDERED: Lisinopril 5 MG TAB PO SCH (09:00)
[2018-10-28] MEDS ORDERED: Aspirin 325 mg Enteric Coated Tablet PO SCH (09:00)
[2018-10-28] MEDS ORDERED: Aspirin 81 mg Enteric Coated Tablet PO SCH (09:00)
--- NOTE | 2018-10-28 09:31 | PRG ---
DATE OF SERVICE: 10/28/2018 SUBJECTIVE: Patient was seen and examined at bedside and overnight events noted. Patient denies any shortness of breath or chest pain or palpitation. No history of nausea or vomiting or diarrhea or fever or chills or cramps. OBJECTIVE: GENERAL: This is an obese female, in no apparent distress. VITAL SIGNS: Temperature 98.2. Heart rate 62. Respiratory rate 18. Blood pressure 180/77. HEENT: Atraumatic, normocephalic. Oral mucosa is moist NECK: Supple. CARDIOVASCULAR: S1, S2 heard. Rate and rhythm regular. RESPIRATORY: Clear to auscultation. GASTROINTESTINAL: Abdomen is soft. MUSCULOSKELETAL: No tenderness. No edema. DERMATOLOGIC: No skin rash. NEUROLOGIC: Alert and awake and oriented x3. No focal neurologic deficits. Moving all the extremities. PSYCHIATRIC: Mood and affect normal. LABORATORY DATA: Not done today. ASSESSMENT: 1. End-stage renal disease. Continue dialysis Saturday, Saturday, and Saturday. 2. Hypertension. 3. Anemia. 4. Edema, controlled. PLAN: Plan is to continue on dialysis Saturday, Saturday, and Saturday as tolerated. Job ID: [id number]
[2018-10-28] MEDS: Insulin Regular 300 UNITS/3 ML VIAL SC PRN (11:11)
[2018-10-28] MEDS ORDERED: hydrALAZINE 20 MG/ML VIAL SLOW IVP PRN (11:14)
--- NOTE | 2018-10-28 11:14 | NM ---
EXAM: Cardiac SPECT HISTORY: Chest pain, end-stage renal disease, hypertension, diabetes, smoker PROTOCOL: Stress only, single isotope TYPE OF STRESS: Pharmacologic stress with adenosine was monitored and interpreted by Dr. Arguello. RADIOPHARMACEUTICAL: 30 mCi technetium 99m-sestamibi injected intravenously FINDINGS: Homogeneous tracer distribution is seen in the myocardial segments on the post stress images. Gated SPECT LVEF: 79% Wall motion exam: Normal IMPRESSION: Normal post stress myocardial perfusion scan.
[2018-10-28 11:18] VITALS: TEMP 97.8
[2018-10-28 11:23] VITALS: BP 147/72
== END 2018-10-28 14:15 | disposition home or self-care (01) ==
LOC: ERS 10:53 → 2SW 11:40
PROVIDERS: ADMIT Internal Medicine; ATTEND Internal Medicine
DX: R07.89 Other chest pain (principal); R06.02 Shortness of breath; R51 Headache; I12.0 Hypertensive chronic kidney disease with stage 5 chronic kidney disease or end stage renal disease; E11.22 Type 2 diabetes mellitus with diabetic chronic kidney disease; N18.6 End stage renal disease; F17.210 Nicotine dependence, cigarettes, uncomplicated; R60.9 Edema, unspecified; E78.5 Hyperlipidemia, unspecified; E66.01 Morbid (severe) obesity due to excess calories; Z68.41 Body mass index [BMI] 40.0-44.9, adult; Z79.82 Long term (current) use of aspirin; Z79.4 Long term (current) use of insulin; Z79.899 Other long term (current) drug therapy; Z99.2 Dependence on renal dialysis
CPT/HCPCS: 71045; 78452; 80053; 82550; 82962 ×2; 83690; 84484 ×2; 85025; 93005; 93017; 94760; 99285; A9500; G0378 ×2; 36415; 36416; J0153; J1815

== ENCOUNTER 2018-11-15 19:04 | Emergency (ER) | payer MEDICARE, OTHER ==
[2018-11-15 20:02] LABS: ALT (SGPT) 11 U/L (8-55); AST (SGOT) 17 U/L (5-34); Albumin 3.9 g/dL (3.5-5.0); Alkaline Phosphatase 94 U/L (40-150); Anion Gap 17 mmol/L (10-20); BUN (Urea Nitrogen) 40 mg/dL (9.8-20.1); Bilirubin, Total 0.2 mg/dL (0.2-1.2); Calc. Creatinine Clearance 0 mL/min (70-130); Calcium 9.2 mg/dL (7.8-10.44); Carbon Dioxide 23 mmol/L (22-29); Chloride 95 mmol/L (98-107); Estimated GFR-MDRD 8; Globulin 3.4 g/dL (2.4-3.5); Glucose 369 mg/dL (70-105); Lipase 9 U/L (8-78); Magnesium 2.2 mg/dL (1.6-2.6); Potassium 4.5 mmol/L (3.5-5.1); Protein, Total 7.3 g/dL (6.0-8.3); Sodium 130 mmol/L (136-145)
[2018-11-15 20:05] LABS: Hemoglobin 11.1 g/dL (12.0-16.0); Mean Corpuscular HGB CONC 32.8 g/dL (32.0-36.0); Mean Corpuscular Hemoglobin 31.5 pg (27.0-31.0); Mean Corpuscular Volume 95.8 fL (78.0-98.0); Mean Platelet Volume 8.4 fL (7.4-10.4); Platelet Count 187 thou/uL (130-400); RBC Distribution Width 13.1 % (11.5-14.5); Red Blood Cell (RBC) Count 3.54 mill/uL (4.20-5.40); White Blood Cell (WBC) Count 23.6 thou/uL (4.8-10.8)
[2018-11-15 20:23] LABS: Band 7 % (5-11); Hypochromia SLIGHT = 6-15 cells (100X) (0-5/hpf); Lymphocytes 3 % (21-51); MDiff Complete? YES; Monocytes 5 % (0-10); Neutrophil 85 % (42-75); Platelet Morphology Comment Appears Adequate
--- NOTE | 2018-11-15 20:27 | RAD ---
AP CHEST: 11/15/18 HISTORY: Weakness. COMPARISON: 10/27/18. Lungs appear clear. Heart and mediastinum unremarkable. Vascularity within normal range considering t he projection. IMPRESSION: No acute findings. POS: [facility]
[2018-11-15] MEDS ORDERED: Ondansetron PF 4 MG/2 ML Vial ONE (20:31)
--- NOTE | 2018-11-15 20:32 | CT ---
CT HEAD WITHOUT CONTRAST: 11/15/18 Axial tomograms obtained through the head without IV enhancement. INDICATIONS: Weakness. COMPARISON: 11/24/17. Ventricles have normal size and position. No evidence of mass, hemorrhage, or infarct. Sinuses appear well aerated and unchanged from prior exam. Mastoid air cells are not well aerated but are stable. IMPRESSION: No acute process. POS: [facility]
--- NOTE | 2018-11-15 20:36 | CT ---
CT ABDOMEN AND PELVIS WITH CONTRAST: 11/15/18 Multiple axial tomograms obtained through the abdomen and pelvis with IV enhancement. INDICATIONS: Microhematuria. COMPARISON: Unenhanced CT abdomen and pelvis 11/17/15. FINDINGS: Lung bases clear. Liver, spleen and pancreas appear unremarkable. Adrenal glands normal. The kidneys show mild cortical thinning bilaterally. There is no hydronephrosis. No evidence of urina ry calculus. Urinary bladder is unremarkable, only mildly distended. Small bowel loops appear normal. Patient appears to be post appendectomy. The colon is unremarkable. Aorta is calcified but normal caliber. Images through the pelvis shows unremarkable uterus and adnexa . Tiny umbilical hernia again noted. IMPRESSION: No evidence of acute abnormality. POS: [facility]
[2018-11-15 21:50] LABS: Bilirubin Negative (Negative); Blood, Urine Small (Negative); Clarity CLEAR (Clear); Glucose, Urine (Dipstick) 250 mg/dL (Negative); Leukocyte Negative (Negative); Nitrite Negative (Negative); Protein, Urine (Dipstick) 100 mg/dL (Neg-Trace); Specific Gravity, Urine 1.017 (1.002-1.036); Urobilinogen 0.2 mg/dL (0.2-1.0)
[2018-11-15 21:51] LABS: Bacteria/HPF None Seen HPF (None Seen); Hyaline Casts/LPF 0-3 HYALINE CAST LPF (0-3 Hyaline); Pathc Cast-AUWi Flag 0.13 (0-2.49); Squamous Epithelial None Seen HPF (0-3); WBC/HPF 0-3 HPF (0-3)
[2018-11-15] MEDS ORDERED: Acetaminophen 500 MG TAB ONE (22:08)
== END 2018-11-15 23:48 | disposition home or self-care (01) ==
LOC: ERS 19:04
DX: R10.12 Left upper quadrant pain (principal); R68.83 Chills (without fever); R51 Headache; R30.0 Dysuria; E11.22 Type 2 diabetes mellitus with diabetic chronic kidney disease; I12.0 Hypertensive chronic kidney disease with stage 5 chronic kidney disease or end stage renal disease; N18.6 End stage renal disease; E78.5 Hyperlipidemia, unspecified; Z87.891 Personal history of nicotine dependence; F41.9 Anxiety disorder, unspecified; F32.9 Major depressive disorder, single episode, unspecified; Z79.899 Other long term (current) drug therapy; Z79.82 Long term (current) use of aspirin; Z79.4 Long term (current) use of insulin
CPT/HCPCS: 36416; 70450; 71045; 74177; 80053; 81003; 81015; 83690; 83735; 84484; 85025; 93005; 96361; 96374; J2405

== ENCOUNTER 2018-12-09 13:56 | Outpatient (CLI) | payer MEDICARE, OTHER ==
--- NOTE | 2018-12-10 15:27 | MMO ---
Bilateral MAMMO Bilat Screen [facility]. CLINICAL HISTORY: Patient is 58 years old and is seen for screening. The patient has no family history of breast cancer. The patient has no personal history of cancer. VIEWS: The views performed were: bilateral craniocaudal with tomosynthesis and bilateral mediolateral oblique with tomosynthesis. MAMMOGRAM FINDINGS: There are scattered fibroglandular densities. There are benign appearing and vascular calcifications seen in both breasts. There are no suspicious masses, suspicious calcifications, or new areas of architectural distortion. IMPRESSION: THERE IS NO MAMMOGRAPHIC EVIDENCE OF MALIGNANCY. A ROUTINE FOLLOW-UP MAMMOGRAM IN 1 YEAR IS RECOMMENDED. THE RESULTS OF THIS EXAM WERE SENT TO THE PATIENT. ACR BI-RADS Category 2 - Benign finding MAMMOGRAPHY NOTE: 1. A negative mammogram report should not delay a biopsy if a dominant of clinically suspicious mass is present. 2. Approximately 10% to 15% of breast cancers are not detected by mammography. 3. Adenosis and dense breasts may obscure an underlying neoplasm. Reported by: OLMAN LAKE MD Electonically Signed: [id number]
== END 2018-12-09 13:57 | disposition home or self-care (01) ==
LOC: BICMAMMO 13:56
PROVIDERS: ATTEND Family Medicine
DX: Z12.31 Encounter for screening mammogram for malignant neoplasm of breast (principal)
CPT/HCPCS: 77063; 77067

== ENCOUNTER 2019-03-11 12:24 | Outpatient (CLI) | payer MEDICARE, MEDICAID ==
[~2019-03-11 12:24] MED LIST: Iopamidol 370 76% 100 ML VIAL ONE
--- NOTE | 2019-03-11 13:26 | CT ---
CT CHEST WITH CONTRAST: COMPARISON: 07/05/2018. INDICATION: Pulmonary nodule. FINDINGS: Previously described subpleural nodular densities of the right upper lobe, and right middle lobe have resolved. Mild scattered subpleural patchy and linear opacities bilaterally are present, indicating volume loss. No pleural effusion, or pneumothorax. No lobar consolidation, or pulmonary mass. Stable subpleural bl eb along the right minor fissure. Thoracic lymph nodes are of normal size. There is coronary artery disease. Scattered vascular calcifications are also present. Incidental note of atrophy of the partially imaged kidneys. Correlate for patient's renal function. Retained fluid of the esophagus may relate to reflux or dysmotility. Scattered osseous degenerative change present. IMPRESSION: 1. Interval resolution of prior subpleural opacities in the right upper and right middle lobe. 2. No new suspicious pulmonary nodules. Transcribed Date/Time: 03/11/2019 2:08 PM
== END 2019-03-11 12:25 | disposition home or self-care (01) ==
LOC: BICCT 12:24
PROVIDERS: ATTEND Internal Medicine Critical Care Medicine
DX: R91.1 Solitary pulmonary nodule (principal)
CPT/HCPCS: 71260; Q9967

== ENCOUNTER 2019-04-13 09:12 | Inpatient (IN) | payer MEDICARE, MEDICAID ==
--- NOTE | 2019-04-13 10:27 | RAD ---
Exam: Chest one view HISTORY:Fever. Chills. Comparison: 11/15/2018 FINDINGS: Cardiac silhouette: Normal Aorta: Atherosclerosis Pulmonary vessels: Normal Costophrenic angles: Clear LUNGS: No masses or consolidation. Diminished lung volumes, likely due to a poor inspiratory effort. Pneumothorax: None Osseous abnormalities: None IMPRESSION: No acute cardiopulmonary process. Atherosclerosis. Diminished lung volumes, likely due to a poor preoperative.
[2019-04-13] MEDS ORDERED: Nitroglycerin 2% Ointment 1 INCH/1 GM Packet ONE (10:58)
[2019-04-13 12:05] LABS: ALT (SGPT) 7 U/L (8-55); AST (SGOT) 14 U/L (5-34); Alkaline Phosphatase 85 U/L (40-110); Anion Gap 18 mmol/L (10-20); BUN (Urea Nitrogen) 49 mg/dL (9.8-20.1); Bilirubin, Total 0.4 mg/dL (0.2-1.2); CK (CPK) 68 U/L (29-168); Calc. Creatinine Clearance 0 mL/min (70-130); Carbon Dioxide 22 mmol/L (22-29); Chloride 99 mmol/L (98-107); Estimated GFR-MDRD 7; Globulin 2.8 g/dL (2.4-3.5); Glucose 289 mg/dL (70-105); Potassium 5.8 mmol/L (3.5-5.1); Protein, Total 6.8 g/dL (6.0-8.3); Sodium 133 mmol/L (136-145)
--- NOTE | 2019-04-13 12:05 | RAD ---
Radiograph left humerus 2 views: DATE: 04/13/2019 HISTORY: 59-year-old female with left arm pain FINDINGS: There is no fracture or destructive osseous lesion identified in the left humerus. There is an AV fis christophe that has multiple metallic stents, with distal edge of stent at antecubital region, and proximal portion adjacent to the mid diaphysis of the humerus. There are multiple surgical clips in t he soft tissues at the medial aspect of the arm and in the elbow. IMPRESSION: 1. No osseous abnormality of humerus identified. 2. Hemodialysis Arteriovenous fistula in left arm with multiple stents.
--- NOTE | 2019-04-13 12:15 | ULT ---
Ultrasound Doppler duplex venous left upper extremity: DATE: 04/13/2019 HISTORY: 59-year-old female with left upper extremity hemodialysis AV fistula, presents with left upper extrem ity pain. Rule out thrombosis of fistula. TECHNIQUE: Grayscale, color-flow, and spectral analysis, of major veins of left upper extremity, and of the AV g raft. FINDINGS: There is an AV fistula anastomosed to the left brachial artery at the antecubital fossa. The fistula contains multiple metallic stents throughout. The downstream anastomosis of the fistula to another vein at the mid arm, and the inflow anastomosis of the fistula, are both patent. It is uncertain whic h vein is used in the downstream anastomosis, but it is patent. Tiny caliber cephalic vein is patent. Portion of brachial vein is patent. Basilic vein is not visualized. There is a moderately hyp oechoic solid mass circumferentially surrounding the fistula in the arm. The vessels of the forearm are not visualized due to soft tissue edema. IMPRESSION: 1. Hemodialysis arteriovenous fistula with multiple stents in the left arm, is patent. 2. Hypoechoic solid mass circumferentially surrounds this AV fistula. This mass could be either a hem atoma or phlegmon. 3. Soft tissue edema in the forearm.
[2019-04-13 12:26] LABS: Band 3 % (5-11); Hemoglobin 12.2 g/dL (12.0-16.0); Lymphocytes 4 % (21-51); MDiff Complete? YES; Mean Corpuscular HGB CONC 32.7 g/dL (32.0-36.0); Mean Corpuscular Hemoglobin 32.1 pg (27.0-31.0); Mean Platelet Volume 8.1 fL (7.4-10.4); Monocytes 7 % (0-10); Neutrophil 86 % (42-75); Platelet Count 178 thou/uL (130-400); Platelet Morphology Comment Appears Adequate; RBC Morphology Normal; White Blood Cell (WBC) Count 22.6 thou/uL (4.8-10.8)
[2019-04-13] MEDS ORDERED: HYDROcodone/Acetaminophen 5/325 mg Tablet ONE (13:49)
[2019-04-13] MEDS ORDERED: Acetaminophen 325 MG TAB PO PRN ×2 (14:01→19:48)
[2019-04-13] MEDS ORDERED: HYDROcodone/Acetaminophen 5/325 mg Tablet PO PRN ×2 (14:01)
[2019-04-13] MEDS ORDERED: HumaLOG 300 UNITS/3 ML VIAL SC PRN (14:29)
[2019-04-13] MEDS ORDERED: Dextrose 50% Abboject 50 ML SYRINGE SLOW IVP PRN ×2 (14:29→19:51)
[2019-04-13] MEDS ORDERED: Dextrose 5% in Water 1,000 ML IV PRN ×2 (14:29→19:50)
--- NOTE | 2019-04-13 14:36 | ULT ---
VENOUS MAPPING FOR DIALYSIS ACCESS: Date: 04/13/19 HISTORY: Right arm only. Dialysis access. COMPARISON: None. TECHNIQUE: Altman scale, color flow, and Doppler imaging with spectral waveform analysis performed of the right up per extremity arterial venous system. FINDINGS: RIGHT UPPER EXTREMITY BRACHIAL ARTERY: 3.6 mm RADIAL ARTERY: 1.8 mm ULNAR ARTERY: 1.8 mm Cephalic vein is not seen. BASILIC VEIN Proximal Humerus: 2.2 mm Mid Humerus: 2.4 mm Distal Humerus: 1.8 mm Antecubital Fossa: 2.3 mm Proximal Forearm: 1.2 mm Mid Forearm: 1.0 mm Distal Forearm: 0.8 mm IMPRESSION: Right upper extremity venous mapping as above. POS: [facility]
[2019-04-13 14:42] LABS: Lactic Acid 1.4 mmol/L (0.5-2.2)
[2019-04-13 14:54] LABS: HBSAg Index 0.29 S/CO (0-0.99); Hep B Surf Ag Non-Reactive S/CO (NonReactive)
[2019-04-13] MEDS ORDERED: Heparin 5,000 UNITS/ML VIAL SC SCH (15:00)
[2019-04-13] MEDS ORDERED: HOLD VANCOMYCIN FOR LEVEL >20 FS SCH (15:30)
[2019-04-13] MEDS ORDERED: Vancomycin 1.5 GRAM/300 ML BAG 1.5 GM in Premix Bag 1 BAG IVPB SCH (15:30)
[2019-04-13] MEDS ORDERED: Vancomycin HCl 750 MG in Sodium Chloride 0.9% 250 ML 250 ML IVPB SCH (15:30)
[2019-04-13] MEDS ORDERED: Vancomycin HCl 1.25 GM in Sodium Chloride 0.9% 250 ML 250 ML IVPB SCH (15:30)
[2019-04-13] MEDS ORDERED: Vancomycin HCl 1 GM in Premix Bag 1 BAG IVPB SCH ×2 (15:30→20:00)
[2019-04-13] MEDS ORDERED: Vancomycin Sliding Scale 1 EACH FS ONE (15:30)
[2019-04-13] MEDS ORDERED: Acetaminophen 500 MG TAB PO SCH (15:30)
[2019-04-13] MEDS ORDERED: Vancomycin HCl 500 MG in Sodium Chloride 0.9% 100 ML IVPB SCH (15:30)
--- NOTE | 2019-04-13 17:39 | CON ---
DATE OF CONSULTATION: HISTORY OF PRESENT ILLNESS: aNncy Bright is a 59-year-old female, morbidly obese, presents to the emergency room because of left arm pain. In 2013, I placed a left arm fistula. She underwent a basilic vein transposition on April 06, 2014. Apparently, I have not seen her since that time. She has been seeing Dr. Rodriguez on several occasions. Last seen a month ago with a fistulogram. Family states they are unaware what was done because they were not spoken to after the procedure. The patient presents with left arm pain. Dr. Hickey has asked me to see her regarding this. She has a punctate wound over her fistula above her antecubital fossa with some slight redness, otherwise there is no fluctuance. The fistula is patent. She is not allowed to dialysis today. She has a right antecubital IV. This was removed. The patient has been dialyzed today and received vancomycin. I would recommend that she receive intravenous antibiotics when I see her in the office in about 2 weeks. We will obtain ultrasound vein mapping in the right arm for dialysis access. She has a failing left arm fistulas. Plain x-rays reveal multiple stents from the antecubital fossa proximally extending up towards the junction distal mid third upper arm. On evaluation, there is some firmness beneath this reddened area. She may have stent extravasation reaction from this. She also is having problems from repeat access in the same location. She is morbidly obese. Dialysis access is difficult, but there is a portion of the fistula more proximally that has not been accessed. ALLERGIES: NONE. SOCIAL HISTORY: Tobacco, none. Alcohol, none. MEDICATIONS: At home; 1. Clonidine. 2. Renvela. 3. Nitroglycerin. 4. Metoprolol. 5. Lisinopril. 6. Insulin. 7. Pepcid. 8. Atorvastatin. 9. Aspirin. Echocardiogram 07/11/2018, 55% to 60% ejection fraction, mild mitral regurg. Cardiolite stress test 10/27/2018, no ischemia seen by Dr. Arguello. She was hospitalized in October 2018. PAST MEDICAL HISTORY: End-stage renal disease, on dialysis Saturday, Saturday, and Saturday. Diabetes mellitus, hypertension, morbid obesity, metabolic syndrome, dyslipidemia, history of tobacco use, and diabetic retinopathy with vision problems. PAST SURGICAL HISTORY: Dialysis access left arm as noted, amputation of toes per Dr. Angeles due to gangrene in 2016. PHYSICAL EXAMINATION: HEAD, EARS, EYES, NOSE, AND THROAT: Unremarkable. LUNGS: Clear to auscultation. CARDIAC: Regular rate and rhythm without murmur or gallop. ABDOMEN: Soft and obese. EXTREMITIES: Left upper extremity basilic vein transposition fistula. She has a small 0.5 cm area of firmness overlying the distal left upper arm basilic vein transposition fistula above the antecubital fossa. There is mild firmness, but no fluctuance. Right antecubital IV was removed. LABORATORY DATA: White count 22 and hemoglobin 12. Potassium 5.8. ASSESSMENT AND PLAN: 1. Left upper arm dialysis fistula with stents in the distal third of the fistula extending from the arterial inflow with the antecubital fossa to the more proximal upper arm probably junction mid to distal third. There is firmness. The patient reports they repeatedly access in the same place. There could be stent related problems accounting for the mild redness. We would recommend they avoid access to this area and access more proximal fistula. We will obtain ultrasound vein mapping in the right arm to look at the right arm for possible future dialysis access. If this infection on the left arm does not clear with antibiotics, she made need eventual ligation of this fistula. Once stents were placed, there is not much surgically I can do. 2. History of tobacco abuse. 3. Diabetes mellitus, insulin dependent. 4. Hypertension. 5. End-stage renal disease, dialyzes three days a week. Job ID: [id number]
[2019-04-13] MEDS ORDERED: Ondansetron ODT 4 MG TAB SL PRN (20:08)
[2019-04-13] MEDS ORDERED: Ondansetron PF 4 MG/2 ML Vial IVP PRN (20:08)
[2019-04-13] MEDS: Heparin 5,000 UNITS/ML VIAL SC SCH (20:17)
[2019-04-13] MEDS: HYDROcodone/Acetaminophen 5/325 mg Tablet PO PRN (20:19)
--- NOTE | 2019-04-13 20:38 | HP ---
CHIEF COMPLAINT: Left arm pain. HISTORY OF PRESENT ILLNESS: This patient is a 59-year-old female with end-stage dialysis, receiving hemodialysis through a left upper extremity dialysis shunt. The patient reported that she had dialysis on Saturday. At that time, the needle insertion was actually painful, which is unusual, however, was not severe. She did mention that by Saturday, she started having significant pain related to the shunt area along with some redness and swelling. She has had generalized fevers and rigors as well. She stated she did not initially present because she had talked to other people at dialysis, who talked to her about having to have surgery for these types of things and she was hoping to be able to avoid that. REVIEW OF SYSTEMS: All other systems reviewed. All pertinent positives and negatives noted in the history of present illness. She does continue to make urine and voids about six times per day. She has otherwise had normal sleep, appetite, and bowel habits. PAST MEDICAL HISTORY: End-stage renal disease on hemodialysis followed by Dr. Mckeon. She has hypertension, diabetes, hyperlipidemia, history of tobacco abuse, cataracts, and right eye blindness. PAST SURGICAL HISTORY: Dialysis access. She has a partial amputation of the right first and second toes due to infection in 2015. FAMILY HISTORY: Father young of a motor vehicle accident. Her mother had diabetes as do other members of her mother's family. SOCIAL HISTORY: The patient has a history of intermittent smoking. She quit in July. She denies alcohol or drugs. She is single. She is full code. Any of her sons would be her surrogate decision maker. CURRENT MEDICATIONS: Most recent available medication list is: 1. Clonidine 0.1 mg b.i.d. 2. Renvela 800 mg three tablets with meals. 3. Nitrostat 0.3 mg q.5 minutes. 4. Metoprolol 50 mg b.i.d. 5. Lisinopril 5 mg daily. 6. Pepcid 20 mg b.i.d. 7. Atorvastatin 20 mg at bedtime. 8. Aspirin 81 mg daily. 9. 70/30 insulin 35 units subcu b.i.d. ALLERGIES: NONE. PHYSICAL EXAMINATION: VITAL SIGNS: Pulse 85, respirations 18, temperature 99.2, O2 saturations 98% on room air, BP was initially 225/96. She has had significant improvement since then. GENERAL APPEARANCE: Obese age-appropriate female, in no distress. She is having some shaking chills. She is otherwise awake and alert. HEENT: Pupils appear to be reactive, although minimal. There is no OP lesion. She does have a bit of dry oral mucosa. NECK: Supple and symmetric. HEART: Regular without murmurs, gallops, or rubs. LUNGS: Clear bilaterally with no wheezes or rales. ABDOMEN: Obese, soft, nontender, and nondistended. EXTREMITIES: Have no cyanosis, clubbing, or edema. She does actually have pretty good palpable dorsalis pedis pulses. Distal right first and second toes surgically absent. PSYCH: Normal affect and behavior. NEUROLOGIC: She is cognitive. Cranial nerves are intact. She has no significant focal deficits. LABORATORY DATA: White count 22.6, hemoglobin 12.2, platelets 178, 86 segs, 3 bands, 4 lymphocytes, 7 monos. Sodium is 133, potassium 5.8, chloride 99, CO2 of 22, BUN 49, creatinine 6.26, glucose 289, calcium 9.0, AST 14, ALT 7, alkaline phosphatase 85, CK 68, troponin 0.01. BNP is 988. Albumin 4.0. Nasal swabs for influenza A and B are negative. Chest x-ray shows no acute cardiopulmonary processes, atherosclerosis, diminished lung volumes likely due to poor inspiratory effort. Left humeral x-ray is negative for bony abnormalities. There is shunt present with multiple stents. Vascular ultrasound shows hemodialysis AV fistula with multiple stents in the left arm, which appears to be patent. There is a hypoechoic solid mass circumferentially surrounding the AV fistula representing either hematoma or phlegmon with soft tissue edema in the forearm. IMPRESSION AND PLAN: 1. Infected left AV dialysis fistula. The patient has been seen by Dr. Benito. He has ordered an ultrasound vein mapping for possible revision of her AV fistula. I talked to Dr. Hickey. He will order a dose of vancomycin as the patient is going promptly to dialysis. She currently has no other peripheral access as her AC IV was removed. We will check lactic acid level, although presently she does not meet sepsis criteria and she appears to have elevated BUN and aggressive volume resuscitation likely contraindicated in that setting, especially in light of her very elevated blood pressure at presentation. We will continue with vancomycin and follow up cultures. 2. End-stage renal disease. Dr. Mckeon was notified by the emergency room physician. Dr. Hickey is covering and will manage her dialysis while she is here. 3. Hyperkalemia, should resolve with the dialysis. 4. Hyponatremia secondary to chronic kidney disease, stable. 5. Elevated BNP. Patient's prior echocardiogram does not reveal significant cardiomyopathy. 6. Reviewing the patient's record, she has severe sleep apnea, on CPAP/BiPAP. She also apparently had some central sleep apnea that did not resolve with her CPAP/BiPAP. We will try to keep her on her usual CPAP/BiPAP regimen. 7. Diabetes mellitus. We will provide some Accu-Cheks and sliding scale insulin. 8. Hypertension. The patient did receive Nitro-Bid transdermal patch and hydralazine in the emergency department to improve her blood pressure. We will otherwise continue with her usual home regimen with lisinopril, metoprolol, and clonidine. Job ID: [id number]
[2019-04-14] MEDS: HYDROcodone/Acetaminophen 5/325 mg Tablet PO PRN ×4 (06:53→20:01)
[2019-04-14 07:13] LABS: Anion Gap 15 mmol/L (10-20); BUN (Urea Nitrogen) 23 mg/dL (9.8-20.1); Calc. Creatinine Clearance 23 mL/min (70-130); Calcium 9.3 mg/dL (7.8-10.44); Carbon Dioxide 28 mmol/L (22-29); Chloride 98 mmol/L (98-107); Estimated GFR-MDRD 12; Glucose 208 mg/dL (70-105); Potassium 4.6 mmol/L (3.5-5.1); Sodium 136 mmol/L (136-145)
[2019-04-14] MEDS: Heparin 5,000 UNITS/ML VIAL SC SCH ×3 (07:29→20:02)
--- NOTE | 2019-04-14 07:57 | CON ---
DATE OF CONSULTATION: 04/13/2019 CONSULTING PHYSICIAN: Dr. Tam. REASON FOR CONSULTATION: End-stage renal disease evaluation and care. REASON FOR ADMISSION: Fever, chills. HISTORY OF PRESENT ILLNESS: This is a 59-year-old female with history of end-stage renal disease, hypertension, hyperlipidemia, cataracts, came to the hospital with chills and fever. The patient was also having pain in the dialysis access. She gets dialysis on Saturday, Saturday, Saturday. Next is due for today and Dr. Benito from Surgery also evaluated her and her access is okay to be used. She was later on seen during dialysis to still have fever. She is due for vancomycin after dialysis. No chest pain or palpitation. No nausea, vomiting, or diarrhea reported. PAST MEDICAL HISTORY: Positive for end-stage renal disease, hypertension, hyperlipidemia, morbid obesity, cataracts. PAST SURGICAL HISTORY: Appendectomy, fistula placement, cataract removal, and ankle surgery. HOME MEDICATIONS: 1. Aspirin. 2. Amlodipine. 3. Atorvastatin. 4. Pepcid. 5. Metoprolol. 6. Nitroglycerin. 7. Clonidine. 8. Novolog. 9. Sertraline. ALLERGIES: NO KNOWN DRUG ALLERGIES. SOCIAL HISTORY: No smoking, alcohol or illicit drugs. FAMILY HISTORY: No history of kidney disease. REVIEW OF SYSTEMS: CONSTITUTIONAL: Negative for weight loss or gain, ability to conduct usual activities. SKIN: Negative for rash, itching. EYES: Negative for double vision, pain. ENT/MOUTH: Negative for nose bleeding, neck stiffness, pain, tenderness. CARDIOVASCULAR: Negative for palpitations, dyspnea on exertion, orthopnea. RESPIRATORY: Negative for shortness of breath, wheezing, cough, hemoptysis, fever or night sweats. GASTROINTESTINAL: Negative for poor appetite, abdominal pain, heartburn, nausea, vomiting, constipation, or diarrhea. GENITOURINARY: Negative for urgency, frequency, dysuria, nocturia. MUSCULOSKELETAL: Negative for pain, swelling. NEUROLOGIC/PSYCHIATRIC: Negative for anxiety, depression. ALLERGY/IMMUNOLOGIC: Negative for skin rash, bleeding tendency. Rest are negative. PHYSICAL EXAMINATION: GENERAL: This is an obese female, in no apparent distress. VITAL SIGNS: Temperature 100.2, pulse 85, respiratory rate 18, blood pressure is 156/69. HEENT: Atraumatic, normocephalic. Oral mucosa is moist. NECK: Supple. CV: S1, S2. Rate and rhythm regular. RESPIRATORY: Clear. GI: Abdomen is soft. MUSCULOSKELETAL: No tenderness. No edema. DERMATOLOGIC: No skin rash. NEUROLOGIC: Alert and awake. PSYCH: Mood and affect normal. LABORATORY DATA: Hemoglobin is 12.2. Potassium 5.8, BUN is 49, creatinine is 6.2, albumin is 4.0. BNP is 988. ASSESSMENT AND PLAN: 1. End-stage renal disease. Plan to have dialysis today. We will have dialysis for 3 hours. 2. Hyperkalemia. Limit potassium intake. We will recheck. 3. Edema, controlled. 4. History of hypertension stable. 5. History of anemia. Hemoglobin is stable. 6. Morbid obesity. Plan to have dialysis as tolerated. We will give vancomycin during dialysis. Follow up cultures and we will follow the patient along with you during this admission. Job ID: [id number]
--- NOTE | 2019-04-14 08:28 | PRG ---
DATE OF SERVICE: 04/14/2019 SUBJECTIVE: Patient was seen and examined at bedside and overnight events noted. Patient denies any shortness of breath or chest pain or palpitation. No history of nausea or vomiting or diarrhea or fever or chills or cramps. OBJECTIVE: GENERAL: This is obese female in no apparent distress. VITAL SIGNS: Temperature . Heart rate 90. Respiratory rate 18. Blood pressure 156/82. HEENT: Atraumatic, normocephalic. Oral mucosa is moist NECK: Supple. CARDIOVASCULAR: S1, S2 heard. Rate and rhythm regular. RESPIRATORY: Clear to auscultation. GASTROINTESTINAL: Abdomen is soft. MUSCULOSKELETAL: No tenderness. No edema. DERMATOLOGIC: No skin rash. NEUROLOGIC: Alert and awake and oriented X3. No focal neurologic deficits. Moving all the extremities. PSYCHIATRIC: Mood and affect normal. LABORATORY DATA: Potassium is 4.6, BUN is 23, and creatinine is 3.8. ASSESSMENT AND PLAN: 1. End-stage renal disease, continue on hemodialysis Saturday, Saturday, Saturday. 2. Edema, controlled. 3. History of hypertension. 4. History of anemia, we will monitor. 5. Malfunctioning dialysis access. Follow with surgeon. 6. Fever. Follow up cultures, had vancomycin with dialysis yesterday. Job ID: [id number]
--- NOTE | 2019-04-14 11:24 | PRG ---
DATE OF SERVICE: 04/14/2019 SUBJECTIVE: Nancy Bright this morning along with family requested and her nurse called me to tell me she wanted another surgeon. I entered the room and told them that certainly it is within their rights to have another surgeon, but asked if I could explain the findings today based on ultrasound vein mapping, x-rays of left arm and information gathered about her dialysis access. After the patient and family's consent, I then explained to them the information regarding dialysis access. I then gave them the opportunity to select another surgeon, but they declined and wanted to continue under my care. I informed them that if the dialysis access in her is very difficult and that there are complications related to dialysis access that can occur under anybody's care and certainly if the patient and family wanted another surgeon, they could seek that. They declined at this point. At this point, I explained to the patient that ultrasound vein mapping of both arms reveals inadequate vein of right arm for a fistula. X-rays of her left arm reveal a vascular stent in her basilic vein fistula, antecubital fossa to junction distal mid third upper arm. I explained her that the indurated dime-size area over her fistula and in her distal upper arm could be due to a small infection and could be related to stent erosion. I explained to her that with the stents, it is a matter of time before this fistula may fail. I have told her it could last several years or a few weeks or months. It is difficult to tell. She relayed to me information that 2 weeks ago during dialysis access, she had an episode of infiltration and has been having pain in the arm since that time. I have informed the patient this can occur with any technologist that does her dialysis access, that it can occur at any dialysis center or with any ip/mosaic technician and that it is a complication or problem that often occurs related to dialysis. I have also informed her that her dialysis fistulas and any future grafts prosthetic placed will last longer if the dialysis access sites are varied. I have talked to her about options regarding treatment with intravenous antibiotics for 2 weeks to see how she does versus exploration of the dime-sized area over distal upper arm and she prefers the latter. Yesterday, I discussed with emergency room physician, Dr. Tam and Dr. Mckeon. My recommendation is that she be treated with antibiotics and be followed up in my office, but the patient was admitted. Upon admission, the patient was made n.p.o. by Dr. Tam. The patient is very irritated that she is n.p.o. I have told them that I was not planning any procedure today and we will resume her diet. Options given to the patient and family as discussed above. They have chosen operative intervention with incision and drainage of the small area over the fistula tomorrow in the operating room with preparation. This might require ligation of her fistula. If the stent is eroded or if she has a bad infection or if I cannot repair it, in which case she would need a catheter. She may initially need a new graft in the right upper arm at a later date, but would not perform at this hospitalization due to her temperature of 103 degrees yesterday. OBJECTIVE: Evaluation of her left arm reveals some dime-sized induration over the basilic vein fistula above the antecubital fossa with some mild redness in the immediate area, but no overt signs of extensive infection. The patient does not have an IV. She has difficult IV access, 5 feet tall, 201 pounds, 39 BMI. I removed the right antecubital IV that was placed, informing them they should not allow anybody to access her AC in her right arm as that is her future dialysis access. PLAN: Plan is to place a right femoral vein central line for IV access today at the bedside. She consents and we will proceed. Job ID: [id number]
--- NOTE | 2019-04-14 12:15 | OP ---
DATE OF PROCEDURE: 04/14/2019 PREOPERATIVE DIAGNOSES: Dysfunctional left arm dialysis fistula basilic vein with multiple stents in the arterial inflow and above the antecubital fossa and indurated area with fever, poor intravenous access, morbid obesity, 39 body mass index. POSTOPERATIVE DIAGNOSES: Dysfunctional left arm dialysis fistula basilic vein with multiple stents in the arterial inflow and above the antecubital fossa and indurated area with fever, poor intravenous access, morbid obesity, 39 body mass index. PROCEDURE PERFORMED: Right femoral vein triple-lumen catheter. ANESTHESIA: 1% Xylocaine. DESCRIPTION OF PROCEDURE: With the patient at bedside, right groin was clipped of hair, prepared with ChloraPrep and draped in routine fashion. 1% Xylocaine was infiltrated in the skin and subcutaneous tissue. Trocar catheter was cannulated in the femoral vein with some effort and J-wire threaded, trocar catheter removed, skin site enlarged sharply. Dilator placed and removed and distal port with catheter placed over the J-wire in the femoral vein, removed the J-wire, securing the catheter with sutures of 3-0 silk, sterile dressing. Each port aspirated blood and flushed with saline solution. Job ID: [id number]
--- NOTE | 2019-04-14 15:29 | PDOC.HOSPP ---
- Subjective Encounter Date: 04/14/19 Encounter Time: 08:40 Subjective: Pt seen for followup re; infected AV graft. Denies chest pain or shortness of breath. - Objective Vital Signs & Weight: Vital Signs (12 hours) Temp Pulse Resp BP BP Pulse Ox 04/14/19 11:00 99.0 F 88 20 176/81 H 97 04/14/19 07:38 98.5 F 95 20 151/74 H 91 L 04/14/19 04:18 98.9 F 90 18 156/82 H 96 Weight Weight 201 lb Result Diagrams: 04/13/19 11:31 04/14/19 06:28 Additional Labs: Accuchecks 04/14/19 04/14/19 04/13/19 11:12 04:18 20:48 POC Glucose 210 H 204 H 209 H Labs and MARs reviewed by [place] Hospitalist ROS - Review of Systems Cardiovascular: denies: chest pain, palpitations, orthopnea, paroxysmal noc. dyspnea, edema, light headedness Gastrointestinal: denies: nausea, vomiting, abdominal pain, diarrhea, constipation, melena, hematochezia - Medication Medications: Active Medications Generic Name Dose Route Start Last Admin Trade Name Freq PRN Reason Stop Dose Admin Hydrocodone Bitart/Acetaminophen 2 tab 04/13/19 19:50 04/14/19 10:58 [place] 5/325 PO 2 tab Q4H PRN Administration Severe Pain (7-10) Heparin Sodium (Porcine) 5,000 units 04/13/19 21:00 04/14/19 07:29 Heparin SC Not Given TID HOMERO - Exam General - other findings: Obese Eye: anicteric sclera ENT: moist mucosa Neck: supple Heart: RRR, no rubs Respiratory: CTAB Gastrointestinal: soft, non-tender Extremities: no clubbing Skin - other findings: rash L arm Musculoskeletal: normal strength Psychiatric: normal affect, normal behavior Hosp A/P (1) Dialysis AV fistula infection Code(s): T82.7XXA - INFECT/INFLM REACT D/T OTH CARDI/VASC DEV/IMPLNT/GRFT, INIT Status: Acute (2) DM2 (diabetes mellitus, type 2) Status: Chronic (3) Dyslipidemia Code(s): E78.5 - HYPERLIPIDEMIA, UNSPECIFIED Status: Chronic (4) ESRD on hemodialysis Code(s): N18.6 - END STAGE RENAL DISEASE; Z99.2 - DEPENDENCE ON RENAL DIALYSIS Status: Chronic (5) Hypertension Code(s): I10 - ESSENTIAL (PRIMARY) HYPERTENSION Status: Chronic - Plan Continue IV vancomycin. Continue accuchecks, insulin sliding scale. Gen surgery and nephrology following. Monitor vital signs, titrate antihypertensives as needed.
[2019-04-14] MEDS ORDERED: Nitroglycerin 0.4 MG TAB (25 Tab Bottle) SL PRN (15:48)
[2019-04-14] MEDS: HumuLIN 70/30 (300 UNITS/3 ML VIAL) SC SCH (18:16)
[2019-04-14] MEDS: Atorvastatin Calcium 20 MG TAB PO SCH (20:00)
[2019-04-14] MEDS: Famotidine 20 MG TAB PO SCH (20:00)
[2019-04-14] MEDS: Metoprolol Tartrate 25 MG TAB PO SCH (20:00)
[2019-04-14] MEDS: cloNIDine 0.1 MG TAB PO SCH (20:00)
[2019-04-14] MEDS: HumaLOG 300 UNITS/3 ML VIAL SC PRN (21:32)
[2019-04-14] MEDS: Ondansetron PF 4 MG/2 ML Vial IVP PRN (22:12)
[2019-04-14] MEDS ORDERED: Morphine 2 MG/ML SYRINGE SLOW IVP PRN (22:36)
[2019-04-14 23:10] LABS: Hemoglobin 11.3 g/dL (12.0-16.0)
[2019-04-15] MEDS: Morphine 2 MG/ML SYRINGE SLOW IVP PRN ×3 (04:11→17:17)
[2019-04-15] MEDS: Ondansetron PF 4 MG/2 ML Vial IVP PRN ×2 (05:22→17:17)
[2019-04-15 06:23] LABS: Anion Gap 15 mmol/L (10-20); BUN (Urea Nitrogen) 37 mg/dL (9.8-20.1); Calc. Creatinine Clearance 18 mL/min (70-130); Calcium 9.6 mg/dL (7.8-10.44); Carbon Dioxide 27 mmol/L (22-29); Chloride 95 mmol/L (98-107); Estimated GFR-MDRD 9; Glucose 211 mg/dL (70-105); Potassium 4.4 mmol/L (3.5-5.1); Sodium 133 mmol/L (136-145)
[2019-04-15] MEDS: HumaLOG 300 UNITS/3 ML VIAL SC PRN (06:47)
[2019-04-15] MEDS: Metoprolol Tartrate 25 MG TAB PO SCH ×2 (08:00→20:03)
[2019-04-15 08:58] LABS: Vancomycin, Random 5.7 ug/mL (See Comment)
[2019-04-15] MEDS ORDERED: Succinylcholine Chloride 20 MG/ML 10 ml SYRINGE FS ONE (09:23)
[2019-04-15] MEDS ORDERED: PROPOFOL 200 MG/20 ML VIAL ONE (09:23)
[2019-04-15] MEDS ORDERED: ePHEDrine/0.9% NaCl/PF SYRINGE 50 mg/10 ml ONE (09:23)
[2019-04-15] MEDS ORDERED: PHENYLEPHRINE-NS 100 MCG/ML 10 ML SYRINGE ONE (09:23)
[2019-04-15] MEDS: Heparin 5,000 UNITS/ML VIAL SC SCH ×3 (10:26→23:05)
--- NOTE | 2019-04-15 11:20 | PRG ---
DATE OF SERVICE: 04/15/2019 SUBJECTIVE: Patient was seen and examined at bedside and overnight events noted. Patient denies any shortness of breath or chest pain or palpitation. No history of nausea or vomiting or diarrhea or fever or chills or cramps. OBJECTIVE: GENERAL: This is an obese female, in no apparent distress. VITAL SIGNS: Temperature 98.9. Heart rate 80. Respiratory rate 18. Blood pressure 157/83. HEENT: Atraumatic, normocephalic. Oral mucosa is moist NECK: Supple. CARDIOVASCULAR: S1, S2 heard. Rate and rhythm regular. RESPIRATORY: Clear to auscultation. GASTROINTESTINAL: Abdomen is soft. MUSCULOSKELETAL: No tenderness. No edema. DERMATOLOGIC: No skin rash. NEUROLOGIC: Alert and awake and oriented X3. No focal neurologic deficits. Moving all the extremities. PSYCHIATRIC: Mood and affect normal. LABORATORY DATA: Potassium 4.4, BUN is 37, and creatinine is 4.9. ASSESSMENT AND PLAN: 1. End-stage renal disease. Continue with hemodialysis on Saturday, Saturday, and Saturday. 2. Edema, controlled. 3. Hypertension. 4. Anemia. 5. Malfunctioning dialysis access. Follow with Surgery. Plan to continue dialysis Saturday, Saturday, and Saturday. Job ID: [id number]
[2019-04-15] MEDS: HumuLIN 70/30 (300 UNITS/3 ML VIAL) SC SCH ×2 (13:14→18:05)
[2019-04-15] MEDS: Amlodipine 5 MG TAB PO SCH (13:14)
[2019-04-15] MEDS: cloNIDine 0.1 MG TAB PO SCH ×2 (13:15→20:02)
[2019-04-15] MEDS: Famotidine 20 MG TAB PO SCH (13:15)
[2019-04-15] MEDS: Gemfibrozil 600 MG TAB PO SCH (13:16)
[2019-04-15] MEDS ORDERED: Lidocaine 1% w/Epinephrine 1:100K 20 ML VIAL ONE (14:33)
[2019-04-15] MEDS ORDERED: Heparin 10,000 UNITS/1 ML VIAL ONE (14:42)
[2019-04-15] MEDS ORDERED: Sodium Chloride 0.9% 10 ML ONE (14:42)
--- NOTE | 2019-04-15 15:50 | RAD ---
FRONTAL VIEW CHEST: 04/15/19 COMPARISON: 04/13/19 INDICATINO: Central line. FINDINGS: There is a tunneled right sided vascular catheter with tip overlying the cavoatrial junction. Evidenc e of fluid overload with vascular congestion and bilateral pulmonary edema. Elevation of the right he midiaphragm is similar. No postprocedure pneumothorax. IMPRESSION: 1. Interval placement of tunneled right sided vascular catheter without a postprocedural pneumot horax. 2. Evidence of fluid overload with vascular congestion and pulmonary edema. Recommend continued imaging follow-up. POS: [facility]
[2019-04-15 18:17] LABS: CKMB 1.6 ng/mL (0-6.6)
--- NOTE | 2019-04-15 18:18 | PDOC.HOSPP ---
- Subjective Encounter Date: 04/15/19 Encounter Time: 09:20 Subjective: Pt seen for followup re: infected AV dialysis fistula. Says she feels okay. No new complaints. - Objective Vital Signs & Weight: Vital Signs (12 hours) Temp Pulse Resp BP BP Pulse Ox 04/15/19 13:15 184/85 H 04/15/19 13:14 86 04/15/19 11:00 97.9 F 86 20 94/64 95 Weight Weight 201 lb I&O: 04/14/19 04/15/19 04/16/19 06:59 06:59 06:59 Intake Total 1700 Output Total 0 Balance 1700 Result Diagrams: 04/14/19 22:44 04/15/19 05:42 Additional Labs: Accuchecks 04/15/19 04/15/19 04/15/19 16:56 11:58 04:49 POC Glucose 214 H 134 H 236 H 04/14/19 20:53 POC Glucose 261 H Labs and MARs reviewed by [place] Hospitalist ROS - Review of Systems Cardiovascular: denies: chest pain, palpitations, orthopnea, paroxysmal noc. dyspnea, edema, light headedness Gastrointestinal: denies: nausea, vomiting, abdominal pain, diarrhea, constipation, melena, hematochezia Musculoskeletal: reports: back pain - Medication Medications: Active Medications Generic Name Dose Route Start Last Admin Trade Name Freq PRN Reason Stop Dose Admin Hydrocodone Bitart/Acetaminophen 2 tab 04/13/19 19:50 04/14/19 20:01 [place] 5/325 PO 2 tab Q4H PRN Administration Severe Pain (7-10) Amlodipine Besylate 5 mg 04/15/19 09:00 04/15/19 13:14 Norvasc PO Not Given DAILY [facility] Atorvastatin Calcium 20 mg 04/14/19 21:00 04/14/19 20:00 Lipitor PO 20 mg HS HOMERO Administration Clonidine 0.1 mg 04/14/19 21:00 04/15/19 13:15 Catapres PO Not Given BID HOMERO Gemfibrozil 600 mg 04/15/19 09:00 04/15/19 13:16 Lopid PO Not Given DAILY [facility] Heparin Sodium (Porcine) 5,000 units 04/13/19 21:00 04/15/19 14:31 Heparin SC Not Given TID [facility] Insulin Human Isoph/Insulin Regular 25 units 04/14/19 18:00 04/15/19 18:05 Humulin 70/30 SC Not Given 1800 [facility] Insulin Human Isoph/Insulin Regular 35 units 04/15/19 07:30 04/15/19 13:14 Humulin 70/30 SC Not Given DAILY-AC [facility] Insulin Human Lispro 0 units 04/13/19 19:51 04/15/19 06:47 Humalog SC 4 units .MODERATE SLIDING SC PRN Administration Moderate Correctional Scale Metoprolol Tartrate 25 mg 04/14/19 21:00 04/15/19 08:00 Lopressor PO 25 mg BID HOMERO Administration Morphine Sulfate 2 mg 04/15/19 04:02 04/15/19 17:17 Morphine SLOW IVP 2 mg Q4H PRN Administration Moderate to Severe Pain (6-10) Ondansetron HCl 4 mg 04/14/19 19:03 04/15/19 17:17 Zofran IVP 4 mg Q6H PRN Administration Nausea/Vomiting Sertraline HCl 100 mg 04/14/19 21:00 04/14/19 20:00 Zoloft PO 100 mg HS HOMERO Administration - Exam General - other findings: Obese Eye: anicteric sclera ENT: moist mucosa Neck: supple Heart: RRR Respiratory: CTAB Gastrointestinal: soft, non-tender Skin - other findings: erythema left arm Neurological: no weakness Psychiatric: normal affect, normal behavior Hosp A/P (1) Dialysis AV fistula infection Code(s): T82.7XXA - INFECT/INFLM REACT D/T OTH CARDI/VASC DEV/IMPLNT/GRFT, INIT Status: Acute (2) DM2 (diabetes mellitus, type 2) Status: Chronic (3) Dyslipidemia Code(s): E78.5 - HYPERLIPIDEMIA, UNSPECIFIED Status: Chronic (4) ESRD on hemodialysis Code(s): N18.6 - END STAGE RENAL DISEASE; Z99.2 - DEPENDENCE ON RENAL DIALYSIS Status: Chronic (5) Hypertension Code(s): I10 - ESSENTIAL (PRIMARY) HYPERTENSION Status: Chronic - Plan continue antibiotics, out of bed/ambulate Continue IV vancomycin. Dialysis today. Monitor vital signs, titrate antihypertensives as needed. Pt complained of chest pain. EKG unremarkable. First troponin indeterminate. transfer to telemetry, trend troponins.
[2019-04-15] MEDS: Cyclobenzaprine 10 MG TAB PO PRN (18:20)
[2019-04-15] MEDS: HYDROcodone/Acetaminophen 5/325 mg Tablet PO PRN (20:02)
[2019-04-15] MEDS: Atorvastatin Calcium 20 MG TAB PO SCH (20:03)
[2019-04-15] MEDS ORDERED: Dextrose 5% in Water 1,000 ML IV PRN (21:47)
[2019-04-15] MEDS: Insulin Regular 300 UNITS/3 ML VIAL SC PRN (23:04)
[2019-04-16 00:03] LABS: CKMB 1.1 ng/mL (0-6.6)
[2019-04-16] MEDS: HYDROcodone/Acetaminophen 5/325 mg Tablet PO PRN ×4 (00:23→23:08)
[2019-04-16 05:30] LABS: #Basophils 0.3 thou/uL (0.0-0.2); #Lymphocytes 0.9 thou/uL (1.20-3.40); #Monocytes 1.5 thou/uL (0.11-0.59); #Neutrophils 14.3 thou/uL (1.40-6.50); %Basophils 1.7 % (0.0-1.0); %Eosinophils 0.1 % (0.0-10.0); %Lymphocytes 5.4 % (21.0-51.0); %Monocytes 8.8 % (0.0-10.0); Hemoglobin 9.9 g/dL (12.0-16.0); Mean Corpuscular Volume 97.1 fL (78.0-98.0); Mean Platelet Volume 8.4 fL (7.4-10.4); Platelet Count 163 thou/uL (130-400); RBC Distribution Width 12.7 % (11.5-14.5); White Blood Cell (WBC) Count 17.1 thou/uL (4.8-10.8)
[2019-04-16 05:52] LABS: Anion Gap 17 mmol/L (10-20); BUN (Urea Nitrogen) 30 mg/dL (9.8-20.1); Calc. Creatinine Clearance 21 mL/min (70-130); Calcium 9.1 mg/dL (7.8-10.44); Carbon Dioxide 27 mmol/L (22-29); Chloride 92 mmol/L (98-107); Estimated GFR-MDRD 11; Glucose 258 mg/dL (70-105); Potassium 4.3 mmol/L (3.5-5.1); Sodium 132 mmol/L (136-145)
[2019-04-16] MEDS: Insulin Regular 300 UNITS/3 ML VIAL SC PRN ×3 (07:44→17:02)
--- NOTE | 2019-04-16 08:28 | PRG ---
DATE OF SERVICE: 04/16/2019 SUBJECTIVE: Ms. Bright is feeling well today. She is not having complaints except for her neck and upper back, which is a chronic problem. OBJECTIVE: VITAL SIGNS: Temperature 97.4 degrees, pulse 82, blood pressure 147/68. This morning, hemoglobin was 9.9, white count [id number]. Basic metabolic profile normal consistent with end-stage renal disease. Yesterday, the patient had a hemorrhage from a pseudoaneurysm controlled with local pressure. Taken to the operating room for emergent exploration, bumping other patients due to the hemorrhage event as she was waiting in preoperative holding for operation. Exploration revealed that her fistula was blown out and could not be repaired due to previous stenting. A segment was excised and the arterial inflow ligated and the wound was closed after irrigation. This morning, her wounds look good. Fer wrap was removed and can be let off. She has hemodialysis catheter for hemodialysis. She has not had a fever in 36 hours. She has received vancomycin. At this point, we would recommend that she be scheduled for right arm outpatient dialysis fistula most likely prosthetic graft due to inadequate veins under regional anesthesia. My office will schedule this on a nondialysis day, Saturday. She can be discharged home at anytime from my standpoint and I will see her as an outpatient for this surgery and see her sooner if she develops any changes in her left arm to suggest infection. She was advised to call the office, come to the office for such concern and to try to avoid the emergency room. At this point, I will see her as needed this hospitalization. Her central line can be removed prior to discharge. Job ID: [id number]
[2019-04-16] MEDS: HumuLIN 70/30 (300 UNITS/3 ML VIAL) SC SCH ×2 (08:35→17:10)
[2019-04-16] MEDS: Heparin 5,000 UNITS/ML VIAL SC SCH ×3 (09:15→20:10)
[2019-04-16] MEDS: cloNIDine 0.1 MG TAB PO SCH ×2 (09:15→20:10)
[2019-04-16] MEDS: Metoprolol Tartrate 25 MG TAB PO SCH ×2 (09:16→20:10)
[2019-04-16] MEDS: Amlodipine 5 MG TAB PO SCH (09:16)
[2019-04-16] MEDS: Famotidine 20 MG TAB PO SCH (09:16)
[2019-04-16] MEDS: Gemfibrozil 600 MG TAB PO SCH (09:16)
--- NOTE | 2019-04-16 09:23 | PRG ---
DATE OF SERVICE: SUBJECTIVE: Patient was seen and examined at bedside and overnight events noted. Patient denies any shortness of breath or chest pain or palpitation. No history of nausea or vomiting or diarrhea or fever or chills or cramps. OBJECTIVE: GENERAL: This is an obese female, in no apparent distress. VITAL SIGNS: Temperature 99.5. Heart rate 82. Respiratory rate 18. Blood pressure 116/78. HEENT: Atraumatic, normocephalic. Oral mucosa is moist NECK: Supple. CARDIOVASCULAR: S1, S2 heard. Rate and rhythm regular. RESPIRATORY: Clear to auscultation. GASTROINTESTINAL: Abdomen is soft. MUSCULOSKELETAL: No tenderness. No edema. DERMATOLOGIC: No skin rash. NEUROLOGIC: Alert and awake and oriented X3. No focal neurologic deficits. Moving all the extremities. PSYCHIATRIC: Mood and affect normal. LABORATORY DATA: Potassium is 4.3, BUN is 30, creatinine is 4.1. ASSESSMENT AND PLAN: 1. End-stage renal disease. Continue dialysis as ordered. 2. Edema, remove fluid. 3. History of hypertension. 4. Anemia. 5. Plan to continue dialysis as tolerated. Appreciate help from Surgery. Job ID: [id number]
--- NOTE | 2019-04-16 10:18 | OP ---
DATE OF PROCEDURE: 04/15/2019 PREOPERATIVE DIAGNOSES: End-stage renal disease; morbid obesity; poor veins for dialysis access, right arm; placed in the ER at this visit; left arm dialysis fistula pseudoaneurysm rupture and hemorrhage with previously placed stents. POSTOPERATIVE DIAGNOSES: End-stage renal disease; morbid obesity; poor veins for dialysis access, right arm; placed in the ER at this visit; left arm dialysis fistula pseudoaneurysm rupture and hemorrhage with previously placed stents. PROCEDURE PERFORMED: In preoperative holding area, the patient had a hemorrhage from her fistula. The patient ahead of her was bumped, and the patient went emergently to the operating room. Exploration of left arm fistula with ligation and excision of a segment of the fistula that had stents and was blown up. Debridement of skin and subcutaneous tissue, excisional sharp, resectional with 10-blade scalpel. Right IJ cuffed tunneled hemodialysis catheter. ANESTHESIA: General, local 0.5% Marcaine with epinephrine 30 mL mixed with 2% Xylocaine 10 mL. DESCRIPTION OF PROCEDURE: The patient was taken to the operating room where under general anesthesia, emergently her left upper extremity was prepared with ChloraPrep and draped in routine fashion. Incision made above the antecubital fossa and the inflow of the fistula dissected free and surrounded with silastic vessel loop and clamped with vascular clamps. The patient was given heparin 6000 units intravenously. Incision was made over the ruptured pseudoaneurysm and thrombus evacuated. The fistula had blown up and there was a large hole and stent within, and it was not repairable. Proximally, the fistula and stent dissected free and excised and debrided. I excised devitalized subcutaneous tissue and skin with a 10-blade scalpel. I then dissected free the segment of the fistula and stent proximally to the initially made incision for arterial control. 4-0 Prolene suture was used to ligate the fistula with sutures and the fistula/stent transected with the [place] scissors and excised, discarded. Wound irrigated. Hemostasis noted. Subcutaneous tissue was approximated with 4-0 Monocryl, skin with subdermal 4-0 Monocryl and [place] glue and sterile dressings applied. Neck and chest prepared with ChloraPrep and draped in routine fashion. Local anesthetic mixture was infiltrated into the skin and subcutaneous tissue about the operative site. 0.5% Marcaine with epinephrine 30 mL mixed with 1% Xylocaine with epinephrine 30 mL mixture used. Using ultrasound guidance, the right IJ vein was identified and cannulated with a trocar catheter, J-wire threaded, trocar catheter removed, skin site was enlarged sharply. Stab incision was made over the right chest. Using the tunneling device, pre-curved [employer] cuffed-tunneled hemodialysis catheter tunneled between the 2 incisions. The fabric cuff placed beneath the skin and catheter secured with 2 interrupted suture of 3-0 nylon. Smaller and medium size dilators placed with J-wire into the internal jugular vein removed. Dilator and Peel-Away sheath placed with J-wire in the superior vena cava. Dilator and J-wire were removed. Catheter placed with Peel-Away sheath. Peel-Away sheath removed. Platysma was approximated with 4-0 Monocryl, skin with subdermal 4-0 Monocryl and [place] glue and sterile dressings applied. Each port aspirated blood, flushed with saline solution and heparinized saline solution with 1000 units of heparin per mL, indicating volume of the port. Fluoroscopic images revealed good line placement. Job ID: [id number]
[2019-04-16] MEDS: Cyclobenzaprine 10 MG TAB PO PRN (11:27)
--- NOTE | 2019-04-16 11:40 | PDOC.HOSPP ---
- Subjective Encounter Date: 04/16/19 Encounter Time: 11:39 Subjective: Pt seen for followup re: chest pain. Also reports back pain, which started after admission. - Objective Vital Signs & Weight: Vital Signs (12 hours) Temp Pulse Resp BP BP Pulse Ox 04/16/19 11:38 100.0 F H 91 22 H 174/93 H 95 04/16/19 07:30 97.4 F L 82 17 147/68 H 97 04/16/19 03:13 99.5 F 82 18 116/78 93 L 04/16/19 00:00 99.4 F 88 18 130/58 L 98 Weight Weight 201 lb I&O: 04/15/19 04/16/19 04/17/19 06:59 06:59 06:59 Intake Total 1700 300 Output Total 0 Balance 1700 300 Result Diagrams: 04/16/19 05:00 04/16/19 05:00 Additional Labs: Accuchecks 04/16/19 04/16/19 04/15/19 10:49 05:54 20:38 POC Glucose 301 H 250 H 281 H 04/15/19 04/15/19 16:56 11:58 POC Glucose 214 H 134 H labs and MARs reviewed by me EKG Reviewed by me: Yes (Tele: NSR) Hospitalist ROS - Review of Systems Cardiovascular: reports: chest pain. denies: palpitations, orthopnea, paroxysmal noc. dyspnea, edema, light headedness Gastrointestinal: denies: nausea, vomiting, abdominal pain, diarrhea, constipation, melena, hematochezia Musculoskeletal: reports: neck pain, back pain - Medication Medications: Active Medications Generic Name Dose Route Start Last Admin Trade Name Bernie PRN Reason Stop Dose Admin Hydrocodone Bitart/Acetaminophen 2 tab 04/13/19 19:50 04/16/19 09:15 [place] 5/325 PO 2 tab Q4H PRN Administration Severe Pain (7-10) Amlodipine Besylate 5 mg 04/15/19 09:00 04/16/19 09:16 Norvasc PO 5 mg DAILY [facility] Administration Atorvastatin Calcium 20 mg 04/14/19 21:00 04/15/19 20:03 Lipitor PO 20 mg HS HOMERO Administration Clonidine 0.1 mg 04/14/19 21:00 04/16/19 09:15 Catapres PO 0.1 mg BID HOMERO Administration Cyclobenzaprine HCl 10 mg 04/15/19 18:16 04/16/19 11:27 Flexeril PO 10 mg TIDPRN PRN Administration Muscle Spasm Famotidine 20 mg 04/16/19 09:00 04/16/19 09:16 Pepcid PO 20 mg DAILY [facility] Administration Gemfibrozil 600 mg 04/15/19 09:00 04/16/19 09:16 Lopid PO 600 mg DAILY [facility] Administration Heparin Sodium (Porcine) 5,000 units 04/13/19 21:00 04/16/19 09:15 Heparin SC 5,000 units TID [facility]OMERO Administration Insulin Human Isoph/Insulin Regular 25 units 04/14/19 18:00 04/15/19 18:05 Humulin 70/30 SC Not Given 1800 [facility] Insulin Human Isoph/Insulin Regular 35 units 04/15/19 07:30 04/16/19 08:35 Humulin 70/30 SC 35 unit DAILY-AC [facility] Administration Insulin Human Regular 0 units 04/15/19 21:47 04/16/19 11:27 Humulin R SC 8 unit .MODERATE SLIDING SC PRN Administration Moderate Correctional Scale Insulin Human Regular 0 units 04/15/19 21:47 04/15/19 23:04 Humulin R SC 3 unit .BEDTIME SLIDING SC PRN Administration Bedtime Correctional Scale Metoprolol Tartrate 25 mg 04/14/19 21:00 04/16/19 09:16 Lopressor PO 25 mg BID [facility]OMERO Administration Morphine Sulfate 2 mg 04/15/19 04:02 04/15/19 17:17 Morphine SLOW IVP 2 mg Q4H PRN Administration Moderate to Severe Pain (6-10) Ondansetron HCl 4 mg 04/14/19 19:03 04/15/19 17:17 Zofran IVP 4 mg Q6H PRN Administration Nausea/Vomiting Sertraline HCl 100 mg 04/14/19 21:00 04/15/19 20:03 Zoloft PO 100 mg HS [facility] Administration - Exam General - other findings: Obese Eye: anicteric sclera ENT: moist mucosa Neck: supple Heart: RRR, no rubs Gastrointestinal: soft, non-tender Skin - other findings: LUE rash Psychiatric: normal affect, normal behavior Hosp A/P (1) Chest pain Code(s): R07.9 - CHEST PAIN, UNSPECIFIED Status: Acute (2) Back pain Code(s): M54.9 - DORSALGIA, UNSPECIFIED Status: Acute (3) Dialysis AV fistula infection Code(s): T82.7XXA - INFECT/INFLM REACT D/T OTH CARDI/VASC DEV/IMPLNT/GRFT, INIT Status: Acute (4) DM2 (diabetes mellitus, type 2) Status: Chronic (5) Dyslipidemia Code(s): E78.5 - HYPERLIPIDEMIA, UNSPECIFIED Status: Chronic (6) ESRD on hemodialysis Code(s): N18.6 - END STAGE RENAL DISEASE; Z99.2 - DEPENDENCE ON RENAL DIALYSIS Status: Chronic (7) Hypertension Code(s): I10 - ESSENTIAL (PRIMARY) HYPERTENSION Status: Chronic - Plan Discussed with nephrology and radiology services, will check CT aortogram to r/ o dissection. Unable to check bilateral blood pressures. Troponins were normal in the past, in indeterminate range today. Consult cardiology. Continue IV vancomycin. Monitor vital signs, titrate antihypertensives as needed. Continue to monitor on telemetry.
[2019-04-16] MEDS ORDERED: Bisacodyl 5 MG TAB PO SCH (12:45)
[2019-04-16] MEDS ORDERED: Iopamidol-370 76% 500 ML 1 ML ONE (15:30)
[2019-04-16 15:31] LABS: Troponin I 0.049 ng/mL (< 0.028)
--- NOTE | 2019-04-16 17:50 | CON ---
DATE OF CONSULTATION: CONSULTING DOCTOR: Dr. Juan Salter. HISTORY OF PRESENT ILLNESS: The patient is a pleasant 59-year-old woman, who presents for evaluation of back and chest discomfort. The patient has previously undergone a cardiac evaluation. In 2010, she underwent a cardiac catheterization, which revealed normal left ventricular systolic function with normal coronary arteries. The patient has end-stage renal disease. She was admitted with fevers and chills. She underwent surgery on her AV fistula. Following the surgery the patient reported having left-sided chest and back discomfort. This has hada persistent discomfort since surgery. The patient reports feeling dyspneic. PAST MEDICAL HISTORY: 1. End-stage renal disease. 2. Hypertension. 3. Dyslipidemia. 4. Depression. PAST SURGICAL HISTORY: AV fistula, appendectomy, hand surgery, and foot surgery. SOCIAL HISTORY: Nonsmoker. FAMILY HISTORY: Positive family history of coronary artery disease. REVIEW OF SYSTEMS: Ten-point system noticeable for extreme weakness. PHYSICAL EXAMINATION: GENERAL: Obese woman, in moderate distress with a blood pressure of 174/93, temperature is 100 degrees Fahrenheit. NECK: Showed no jugular venous distention. LUNGS: Have crackles in both bases. HEART: Regular rate and rhythm with a normal S1 and S2. No murmurs. ABDOMEN: Nondistended. EXTREMITIES: She has an AV fistula. LABORATORY RESULTS: Sodium 132, potassium 4.3, chloride 92, bicarb 17, BUN 30, creatinine 4.19, glucose 258. Troponin 0.097. White blood cell count 17.1, hemoglobin 9.9, hematocrit 30.1, platelets are 163. Her troponin was at 0.049. Her EKG revealed her to have normal sinus rhythm with minimal voltage criteria for LVH. IMPRESSION: 1. Atypical chest pain, probably musculoskeletal. 2. Hypertension. 3. Diabetes mellitus. 4. End-stage renal disease. 5. Infected AV fistula with gram-positive sepsis. 6. Dyslipidemia. 7. Obesity. This patient presents with an infected graft. She subsequently underwent surgery and developed back and chest discomfort. The patient's electrocardiogram is unremarkable. Cardiac enzymes revealed no evidence of myocardial infarction. Her chest discomfort is much more suggestive of musculoskeletal discomfort since it has been continuous and is worse with movement. We will continue to follow this patient with you through her hospitalization. Job ID: [id number] [facility]
--- NOTE | 2019-04-16 19:51 | CT ---
CT arteriogram chest with IV contrast and 3-D imaging CT arteriogram abdomen and pelvis with IV contrast and 3-D imaging CT thoracic spine noncontrast CT lumbar spine noncontrast HISTORY: Chest and abdomen pain with radiation to back. Severe back pain. FINDINGS: Small amount of gas lies immediately anterior to the right clavicular head and is surrounde d by moderate amount of soft tissue stranding. Likely related to recent instrumentation. No evidence of pneumothorax. No mediastinal hematoma. There is scattered areas of peripheral atelectasis within each lung. Solid organs of the abdomen are intact. Atrophy of each kidney. Vascular and dystrophic calcifications. No urinary tract calcifications are reliably demonstrated. Good contrast opacification of the aorta without evidence of dissection or rupture. Calcification thr oughout the arterial structures. Normal branching of the great vessels at the aortic arch. At least 2 left renal arteries. Visceral arteries are patent. Calcification within the common iliac arteries. Mild to moderate stenosis of the proximal portion of the right superficial femoral artery. No acute fracture or dislocation of the thoracolumbar spine evident. Minimal physiologic wedging of t he T12 vertebral body. No retropulsion. IMPRESSION: Atherosclerosis. No evidence of aortic dissection or other complication. Mild to moderate stenosis of the partially visualized right femoral artery. Mild degenerative changes of the thoracolumbar spine. No acute osseous abnormalities are demonstrated .
[2019-04-16] MEDS: Atorvastatin Calcium 20 MG TAB PO SCH (20:10)
[2019-04-17] MEDS: Morphine 2 MG/ML SYRINGE SLOW IVP PRN (00:51)
[2019-04-17] MEDS: Cyclobenzaprine 10 MG TAB PO PRN (02:30)
[2019-04-17] MEDS: HYDROcodone/Acetaminophen 5/325 mg Tablet PO PRN ×2 (05:19→21:09)
[2019-04-17 08:54] LABS: Vancomycin, Random 3.4 ug/mL (See Comment)
[2019-04-17] MEDS ORDERED: Vancomycin HCl 1.25 GM in Sodium Chloride 0.9% 250 ML 250 ML IVPB SCH (10:30)
--- NOTE | 2019-04-17 10:38 | PRG ---
DATE OF SERVICE: 04/17/2019 SUBJECTIVE: Patient was seen and examined at bedside and overnight events noted. Patient denies any shortness of breath or chest pain or palpitation. No history of nausea or vomiting or diarrhea or fever or chills or cramps. OBJECTIVE: GENERAL: This is an obese female, in no acute distress. VITAL SIGNS: Temperature 98.1. Heart rate 91. Respiratory rate 20. Blood pressure 152/67. HEENT: Atraumatic, normocephalic. Oral mucosa is moist. NECK: Supple. CARDIOVASCULAR: S1, S2 heard. Rate and rhythm regular. RESPIRATORY: Clear to auscultation. GASTROINTESTINAL: Abdomen is soft. MUSCULOSKELETAL: No tenderness. No edema. DERMATOLOGIC: No skin rash. NEUROLOGIC: Alert and awake and oriented X3. No focal neurologic deficits. Moving all the extremities. PSYCHIATRIC: Mood and affect normal. LABORATORY DATA: Not done today. ASSESSMENT AND PLAN: 1. End-stage renal disease. Continue dialysis Saturday, Saturday, Saturday. 2. Edema, remove fluid. 3. History of hypertension and anemia. Plan to continue on hemodialysis as tolerated. Job ID: [id number]
[2019-04-17] MEDS ORDERED: Heparin 1,000 UNITS/ML VIAL ONE (11:11)
[2019-04-17] MEDS: Gemfibrozil 600 MG TAB PO SCH (12:45)
[2019-04-17] MEDS: cloNIDine 0.1 MG TAB PO SCH ×2 (12:45→21:09)
[2019-04-17] MEDS: Famotidine 20 MG TAB PO SCH (12:45)
[2019-04-17] MEDS: Amlodipine 5 MG TAB PO SCH (12:46)
[2019-04-17] MEDS: Metoprolol Tartrate 25 MG TAB PO SCH ×2 (12:46→21:07)
[2019-04-17] MEDS: HumuLIN 70/30 (300 UNITS/3 ML VIAL) SC SCH ×2 (12:52→17:56)
[2019-04-17] MEDS: Heparin 5,000 UNITS/ML VIAL SC SCH ×3 (12:53→21:07)
--- NOTE | 2019-04-17 12:55 | PQF ---
PAXTONZONIA DAVID [id number] CLINICAL DOCUMENTATION IMPROVEMENT CLARIFICATION FORM: ICD-10 Updated PLEASE DO AN ADDENDUM TO THE PROGRESS NOTE WITH ANY DOCUMENTATION UPDATES OR ADDITIONS AND CARRY THROUGH TO DC SUMMARY. THANK YOU. DATE: 04/17/19 ATTN: Dr. Salter Please exercise your independent, professional judgment in responding to the clarification form. Clinical indicators are provided on the bottom of this form for your review Please check appropriate box(es): [ ] Sepsis due to: Infected left AV dialysis fistula [ ] Sepsis due to: Staph aureus bacteremia [ ] Localized infection without sepsis [ ] Other diagnosis [ ] Unable to determine In addition, please specify: Present on Admission (POA): [ ] Yes [ ] No [ ] Unable to determine For continuity of documentation, please document condition throughout progress notes and discharge summary. Thank You. CLINICAL INDICATORS - SIGNS / SYMPTOMS / LABS / RESULTS AND LOCATION IN MR 04/13 wbc 22.6 per lab 04/13 VS: T 103 04/13 VS: HR 104 Positive blood cultures--> 04/13 staphylococcus aures per lab 04/16 Joel: "infected AV fistula with gram-positive sepsis RISK FACTORS / RESULTS AND LOCATION IN MR Infection/Bacteremia--> 04/13 H&P: (Makenzie): "Infected left AV dialysis fistula " TREATMENTS / RESULTS AND LOCATION IN MR Daily CBC 04/13 orders Blood cultures 04/21 orders IV antibiotics - broad spectrum--> 04/13 Vancomycin 1gm IV; 04/17 Vancomycin 1.25 gm IV (This form is maintained as a part of the permanent medical record) 2014 [employer]. All Rights Reserved Tereza Villarreal, RN, BSN, CCDS [email or web address]
[2019-04-17] MEDS: Acetaminophen 500 MG TAB PO PRN (15:34)
--- NOTE | 2019-04-17 16:37 | PDOC.HOSPP ---
- Subjective Encounter Date: 04/17/19 Encounter Time: 08:00 Subjective: Pt seen for followup re: cellulitis. feels better today. - Objective Vital Signs & Weight: Vital Signs (12 hours) Temp Pulse Resp BP BP Pulse Ox 04/17/19 12:15 98.4 F 96 16 132/65 93 L 04/17/19 07:45 98.1 F 91 20 152/67 H 94 L Weight Weight 201 lb I&O: 04/16/19 04/17/19 04/18/19 06:59 06:59 06:59 Intake Total 300 960 Balance 300 960 Result Diagrams: 04/16/19 05:00 04/16/19 05:00 Additional Labs: Accuchecks 04/17/19 04/17/19 04/16/19 12:17 05:42 20:46 POC Glucose 142 H 238 H 203 H 04/16/19 16:38 POC Glucose 266 H labs and MARs reviewed by me EKG Reviewed by me: Yes (Tele: NSR) Hospitalist ROS - Review of Systems Cardiovascular: denies: chest pain, palpitations, orthopnea, paroxysmal noc. dyspnea, edema, light headedness Gastrointestinal: denies: nausea, vomiting, abdominal pain, diarrhea, constipation, melena, hematochezia Musculoskeletal: reports: back pain - Medication Medications: Active Medications Generic Name Dose Route Start Last Admin Trade Name Freq PRN Reason Stop Dose Admin Acetaminophen 1,000 mg 04/15/19 15:32 04/17/19 15:34 Tylenol PO 1,000 mg Q6H PRN Administration Moderate to Severe Pain (6-10) Hydrocodone Bitart/Acetaminophen 1 tab 04/13/19 19:49 04/16/19 23:08 [place] 5/325 PO 1 tab Q4H PRN Administration Moderate Pain (4-6) Amlodipine Besylate 5 mg 04/15/19 09:00 04/17/19 12:46 Norvasc PO 5 mg DAILY HOMERO Administration Atorvastatin Calcium 20 mg 04/14/19 21:00 04/16/19 20:10 Lipitor PO 20 mg HS HOMERO Administration Clonidine 0.1 mg 04/14/19 21:00 04/17/19 12:45 Catapres PO 0.1 mg BID HOMERO Administration Cyclobenzaprine HCl 10 mg 04/15/19 18:16 04/17/19 02:30 Flexeril PO 10 mg TIDPRN PRN Administration Muscle Spasm Famotidine 20 mg 04/16/19 09:00 04/17/19 12:45 Pepcid PO 20 mg DAILY HOMERO Administration Gemfibrozil 600 mg 04/15/19 09:00 04/17/19 12:45 Lopid PO 600 mg DAILY HOMERO Administration Heparin Sodium (Porcine) 5,000 units 04/13/19 21:00 04/17/19 15:08 Heparin SC 5,000 units TID HOMERO Administration Vancomycin HCl 1.25 gm/ Sodium 250 mls @ 166.667 mls/hr 04/17/19 10:30 10:45 Chloride IVPB 250 mls WILLCALL HOMERO Administration Insulin Human Isoph/Insulin Regular 25 units 04/14/19 18:00 04/16/19 17:10 Humulin 70/30 SC 25 unit 1800 HOMERO Administration Insulin Human Isoph/Insulin Regular 35 units 04/15/19 07:30 04/17/19 12:52 Humulin 70/30 SC 35 unit DAILY-AC HOMERO Administration Insulin Human Regular 0 units 04/15/19 21:47 04/16/19 17:02 Humulin R SC 6 unit .MODERATE SLIDING SC PRN Administration Moderate Correctional Scale Insulin Human Regular 0 units 04/15/19 21:47 04/15/19 23:04 Humulin R SC 3 unit .BEDTIME SLIDING SC PRN Administration Bedtime Correctional Scale Metoprolol Tartrate 25 mg 04/14/19 21:00 04/17/19 12:46 Lopressor PO 25 mg BID HOMERO Administration Ondansetron HCl 4 mg 04/14/19 19:03 04/15/19 17:17 Zofran IVP 4 mg Q6H PRN Administration Nausea/Vomiting Sertraline HCl 100 mg 04/14/19 21:00 04/16/19 20:10 Zoloft PO 100 mg HS [facility] Administration - Exam General - other findings: Obese Eye: anicteric sclera ENT: moist mucosa Neck: supple, no JVD Heart: RRR, no rubs Respiratory: CTAB Gastrointestinal: soft, non-tender Skin - other findings: LUE cellulitis Musculoskeletal: normal tone, normal strength Psychiatric: normal affect, normal behavior Hosp A/P (1) Dialysis AV fistula infection Code(s): T82.7XXA - INFECT/INFLM REACT D/T OTH CARDI/VASC DEV/IMPLNT/GRFT, INIT Status: Acute (2) Acute metabolic encephalopathy Code(s): G93.41 - METABOLIC ENCEPHALOPATHY Status: Acute (3) Back pain Code(s): M54.9 - DORSALGIA, UNSPECIFIED Status: Acute (4) DM2 (diabetes mellitus, type 2) Status: Chronic (5) Dyslipidemia Code(s): E78.5 - HYPERLIPIDEMIA, UNSPECIFIED Status: Chronic (6) ESRD on hemodialysis Code(s): N18.6 - END STAGE RENAL DISEASE; Z99.2 - DEPENDENCE ON RENAL DIALYSIS Status: Chronic (7) Hypertension Code(s): I10 - ESSENTIAL (PRIMARY) HYPERTENSION Status: Chronic - Plan Pt was reportedly confused earlier today, oriented x 3 at this time. Adjust pain medications and observe. CT aortogram - no dissection. Appreciate cardiology input. Continue IV vancomycin. Monitor vital signs, titrate antihypertensives as needed. r
[2019-04-17] MEDS: Insulin Regular 300 UNITS/3 ML VIAL SC PRN (17:54)
[2019-04-17] MEDS: FERRIC CITRATE PO SCH ×2 (18:24→18:25)
[2019-04-17] MEDS: Atorvastatin Calcium 20 MG TAB PO SCH (21:07)
[2019-04-17] MEDS: Ferrous Sulfate 325 MG TAB PO SCH (21:07)
[2019-04-18] MEDS: HYDROcodone/Acetaminophen 5/325 mg Tablet PO PRN ×2 (01:34→20:25)
[2019-04-18] MEDS: HumuLIN 70/30 (300 UNITS/3 ML VIAL) SC SCH ×2 (07:27→18:04)
[2019-04-18] MEDS: Acetaminophen 500 MG TAB PO PRN ×2 (07:44→15:23)
[2019-04-18] MEDS: cloNIDine 0.1 MG TAB PO SCH ×2 (09:18→20:23)
[2019-04-18] MEDS: Aspirin 81 mg Enteric Coated Tablet PO SCH (09:18)
[2019-04-18] MEDS: Gemfibrozil 600 MG TAB PO SCH (09:19)
[2019-04-18] MEDS: Famotidine 20 MG TAB PO SCH (09:20)
[2019-04-18] MEDS: Bisacodyl 5 MG TAB PO PRN (09:20)
[2019-04-18] MEDS: Amlodipine 5 MG TAB PO SCH (09:20)
[2019-04-18] MEDS: Ferrous Sulfate 325 MG TAB PO SCH ×2 (09:20→20:23)
[2019-04-18] MEDS: Metoprolol Tartrate 25 MG TAB PO SCH ×2 (09:21→20:23)
[2019-04-18] MEDS: Heparin 5,000 UNITS/ML VIAL SC SCH ×3 (09:21→20:24)
[2019-04-18 09:38] LABS: Hemoglobin 10.3 g/dL (12.0-16.0); Mean Corpuscular HGB CONC 32.9 g/dL (32.0-36.0); Mean Corpuscular Hemoglobin 32.1 pg (27.0-31.0); Mean Corpuscular Volume 97.7 fL (78.0-98.0); Mean Platelet Volume 7.7 fL (7.4-10.4); Platelet Count 266 thou/uL (130-400); RBC Distribution Width 12.9 % (11.5-14.5); Red Blood Cell (RBC) Count 3.21 mill/uL (4.20-5.40)
[2019-04-18 09:41] LABS: Anion Gap 17 mmol/L (10-20); BUN (Urea Nitrogen) 29 mg/dL (9.8-20.1); Calc. Creatinine Clearance 24 mL/min (70-130); Calcium 9.4 mg/dL (7.8-10.44); Carbon Dioxide 25 mmol/L (22-29); Chloride 90 mmol/L (98-107); Estimated GFR-MDRD 12; Glucose 136 mg/dL (70-105); Potassium 3.4 mmol/L (3.5-5.1); Sodium 129 mmol/L (136-145)
[2019-04-18 10:43] LABS: Band 5 % (5-11); Large Platelets SLIGHT; Lymphocytes 3 % (21-51); MDiff Complete? YES; Metamyelocyte 1 % (0-0); Monocytes 10 % (0-10); Neutrophil 81 % (42-75); Platelet Morphology Comment Appears Adequate; White Blood Cell (WBC) Count 30.7 thou/uL (4.8-10.8)
[2019-04-18] MEDS: Insulin Regular 300 UNITS/3 ML VIAL SC PRN (12:18)
--- NOTE | 2019-04-18 15:55 | PDOC.HOSPP ---
- Subjective Encounter Date: 04/18/19 Encounter Time: 07:20 Subjective: Pt seen for followup for bacteremia. Says she feels fine. Appears sleepy. - Objective Vital Signs & Weight: Vital Signs (12 hours) Temp Pulse Resp BP BP Pulse Ox 04/18/19 15:42 98.3 F 80 18 138/79 98 04/18/19 12:08 98.3 F 71 27 H 131/62 96 04/18/19 07:10 98.5 F 87 22 H 141/66 H 100 Weight Weight 208 lb 1.6 oz I&O: 04/17/19 04/18/19 04/19/19 06:59 06:59 06:59 Intake Total 960 960 Output Total 3000 Balance 960 -2040 Result Diagrams: 04/19/19 04:24 04/19/19 03:30 Additional Labs: Accuchecks 04/18/19 04/18/19 04/17/19 11:11 05:13 20:40 POC Glucose 164 H 123 H 137 H 04/17/19 04/17/19 16:56 12:17 POC Glucose 321 H 142 H Labs and MARs reviewed by me EKG Reviewed by me: Yes (Tele: NSR) Hospitalist ROS - Review of Systems Cardiovascular: denies: chest pain, palpitations, orthopnea, paroxysmal noc. dyspnea, edema, light headedness Gastrointestinal: denies: nausea, vomiting, abdominal pain, diarrhea, constipation, melena, hematochezia - Medication Medications: Active Medications Generic Name Dose Route Start Last Admin Trade Name Freq PRN Reason Stop Dose Admin Acetaminophen 1,000 mg 04/15/19 15:32 04/18/19 15:23 Tylenol PO 1,000 mg Q6H PRN Administration Moderate to Severe Pain (6-10) Hydrocodone Bitart/Acetaminophen 1 tab 04/13/19 19:49 04/18/19 01:34 [place] 5/325 PO 1 tab Q4H PRN Administration Moderate Pain (4-6) Amlodipine Besylate 5 mg 04/15/19 09:00 04/18/19 09:20 Norvasc PO 5 mg DAILY HOMERO Administration Aspirin 81 mg 04/18/19 09:00 04/18/19 09:18 Ecotrin PO 81 mg DAILY HOMERO Administration Atorvastatin Calcium 20 mg 04/14/19 21:00 04/17/19 21:07 Lipitor PO 20 mg HS HOMERO Administration Bisacodyl 10 mg 04/16/19 12:32 04/18/19 09:20 Dulcolax PO 10 mg DAILYPRN PRN Administration Constipation Clonidine 0.1 mg 04/14/19 21:00 04/18/19 09:18 Catapres PO 0.1 mg BID HOMERO Administration Cyclobenzaprine HCl 10 mg 04/15/19 18:16 04/17/19 02:30 Flexeril PO 10 mg TIDPRN PRN Administration Muscle Spasm Famotidine 20 mg 04/16/19 09:00 04/18/19 09:20 Pepcid PO 20 mg DAILY HOMERO Administration Ferrous Sulfate 325 mg 04/17/19 21:00 04/18/19 09:20 Feosol PO 325 mg BID HOMERO Administration Gemfibrozil 600 mg 04/15/19 09:00 04/18/19 09:19 Lopid PO 600 mg DAILY HOMERO Administration Heparin Sodium (Porcine) 5,000 units 04/13/19 21:00 04/18/19 15:25 Heparin SC 5,000 units TID HOMERO Administration Vancomycin HCl 1.25 gm/ Sodium 250 mls @ 166.667 mls/hr 04/17/19 10:30 10:45 Chloride IVPB 250 mls WILLCALL HOMERO Administration Insulin Human Isoph/Insulin Regular 25 units 04/14/19 18:00 04/17/19 17:56 Humulin 70/30 SC 25 unit 1800 HOMERO Administration Insulin Human Isoph/Insulin Regular 35 units 04/15/19 07:30 04/18/19 07:27 Humulin 70/30 SC 35 unit DAILY-AC HOMERO Administration Insulin Human Regular 0 units 04/15/19 21:47 04/18/19 12:18 Humulin R SC 2 unit .MODERATE SLIDING SC PRN Administration Moderate Correctional Scale Insulin Human Regular 0 units 04/15/19 21:47 04/15/19 23:04 Humulin R SC 3 unit .BEDTIME SLIDING SC PRN Administration Bedtime Correctional Scale Metoprolol Tartrate 25 mg 04/14/19 21:00 04/18/19 09:21 Lopressor PO 25 mg BID HOMERO Administration Ondansetron HCl 4 mg 04/14/19 19:03 04/15/19 17:17 Zofran IVP 4 mg Q6H PRN Administration Nausea/Vomiting Sertraline HCl 100 mg 04/17/19 21:00 04/18/19 09:20 Zoloft PO 100 mg BID HOMERO Administration - Exam General - other findings: Morbid obesity Eye: anicteric sclera ENT: moist mucosa Neck: supple Heart: RRR Respiratory: CTAB Gastrointestinal: soft Skin - other findings: left arm cellulitis Psychiatric: normal affect, normal behavior Hosp A/P (1) Bacteremia Code(s): R78.81 - BACTEREMIA Status: Acute (2) Acute metabolic encephalopathy Code(s): G93.41 - METABOLIC ENCEPHALOPATHY Status: Acute (3) DM2 (diabetes mellitus, type 2) Status: Chronic (4) Dyslipidemia Code(s): E78.5 - HYPERLIPIDEMIA, UNSPECIFIED Status: Chronic (5) ESRD on hemodialysis Code(s): N18.6 - END STAGE RENAL DISEASE; Z99.2 - DEPENDENCE ON RENAL DIALYSIS Status: Chronic (6) Hypertension Code(s): I10 - ESSENTIAL (PRIMARY) HYPERTENSION Status: Chronic (7) Back pain Code(s): M54.9 - DORSALGIA, UNSPECIFIED Status: Resolved (8) Dialysis AV fistula infection Code(s): T82.7XXA - INFECT/INFLM REACT D/T OTH CARDI/VASC DEV/IMPLNT/GRFT, INIT Status: Ruled-out (9) Sepsis Code(s): A41.9 - SEPSIS, UNSPECIFIED ORGANISM Status: Resolved Plan: due to bacteremia, present on admission - Plan continue antibiotics, out of bed/ambulate Oriented x 3 today Leucocytosis worse today, Continue IV vancomycin. CT aortogram - no dissection. Appreciate cardiology input. elvis
[2019-04-18] MEDS: Atorvastatin Calcium 20 MG TAB PO SCH (20:23)
[2019-04-18] MEDS ORDERED: Polyethylene Glycol 3350 17 GM Packet PO SCH (22:00)
--- NOTE | 2019-04-18 22:18 | PRG ---
DATE OF SERVICE: SUBJECTIVE: I was asked to see her regarding her left arm wound. 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 I was able to close one of the wounds, but the other wound or the blowout and skin and subcutaneous tissue were excised has come apart. She is having some old bloody drainage. This wound was opened at the bedside, removing the sutures and saline wet-to-dry dressing applied. This wound opening is expected as she had fevers and wound breakdown from the hemorrhaging pseudoaneurysm. We would recommend daily washing this with soap and water and place in a gauze (not Nu Gauze), normal saline wet-to-dry dressing daily. Family can be instructed on how to do this or home health nursing can do this. There is no evidence of infection at this time. No purulent discharge. We would let this heal secondarily. The patient is scheduled to have a right arm graft in the near future as an outpatient and can be discharged home anytime from my standpoint. I will see her as needed this hospitalization. Call if needed. Job ID: [id number]
[2019-04-19 05:04] LABS: Anion Gap 18 mmol/L (10-20); BUN (Urea Nitrogen) 46 mg/dL (9.8-20.1); Calc. Creatinine Clearance 19 mL/min (70-130); Calcium 9.3 mg/dL (7.8-10.44); Carbon Dioxide 25 mmol/L (22-29); Chloride 90 mmol/L (98-107); Estimated GFR-MDRD 9; Glucose 62 mg/dL (70-105); Potassium 3.9 mmol/L (3.5-5.1); Sodium 129 mmol/L (136-145)
[2019-04-19 05:37] LABS: Band 6 % (5-11); Hemoglobin 9.9 g/dL (12.0-16.0); Lymphocytes 4 % (21-51); MDiff Complete? YES; Mean Corpuscular HGB CONC 33.3 g/dL (32.0-36.0); Mean Corpuscular Hemoglobin 32.4 pg (27.0-31.0); Mean Corpuscular Volume 97.1 fL (78.0-98.0); Mean Platelet Volume 7.6 fL (7.4-10.4); Metamyelocyte 1 % (0-0); Monocytes 7 % (0-10); Neutrophil 82 % (42-75); Platelet Count 309 thou/uL (130-400); Platelet Morphology Comment Appears Adequate; RBC Distribution Width 13.4 % (11.5-14.5); RBC Morphology Normal; Red Blood Cell (RBC) Count 3.05 mill/uL (4.20-5.40)
[2019-04-19] MEDS: HYDROcodone/Acetaminophen 5/325 mg Tablet PO PRN ×3 (06:01→17:21)
--- NOTE | 2019-04-19 08:53 | PRG ---
DATE OF SERVICE: 04/19/2019 SUBJECTIVE: Patient was seen and examined at bedside and overnight events noted. Patient denies any shortness of breath or chest pain or palpitation. No history of nausea or vomiting or diarrhea or fever or chills or cramps. OBJECTIVE: GENERAL: This is an obese female, in no apparent distress. VITAL SIGNS: Temperature 98.2. Heart rate 63. Respiratory rate 19. Blood pressure 143/64. HEENT: Atraumatic, normocephalic. Oral mucosa is moist NECK: Supple. CARDIOVASCULAR: S1, S2 heard. Rate and rhythm regular. RESPIRATORY: Clear to auscultation. GASTROINTESTINAL: Abdomen is soft. MUSCULOSKELETAL: No tenderness. No edema. DERMATOLOGIC: No skin rash. NEUROLOGIC: Alert and awake and oriented X3. No focal neurologic deficits. Moving all the extremities. PSYCHIATRIC: Mood and affect normal. LABORATORY DATA: Potassium 3.9, sodium 129, BUN is 46, and creatinine is 4.8. ASSESSMENT AND PLAN: 1. End-stage renal disease. Continue on dialysis on Saturday, Saturday, Saturday. 2. Hyponatremia. Limit fluid intake. 3. Edema. We will remove fluid with dialysis as tolerated. 4. Hypertension. 5. History of anemia. We will continue dialysis on Saturday, Saturday, Fridays as tolerated, limit fluid intake. Job ID: [id number]
[2019-04-19] MEDS: Amlodipine 5 MG TAB PO SCH (09:24)
[2019-04-19] MEDS: HumuLIN 70/30 (300 UNITS/3 ML VIAL) SC SCH ×2 (09:24→19:57)
[2019-04-19] MEDS: cloNIDine 0.1 MG TAB PO SCH ×2 (09:25→21:35)
[2019-04-19] MEDS: Metoprolol Tartrate 25 MG TAB PO SCH ×2 (09:25→21:34)
[2019-04-19] MEDS: Polyethylene Glycol 3350 17 GM Packet PO SCH (09:25)
[2019-04-19] MEDS: Famotidine 20 MG TAB PO SCH (09:26)
[2019-04-19] MEDS: Heparin 5,000 UNITS/ML VIAL SC SCH ×3 (09:26→21:35)
[2019-04-19] MEDS: Gemfibrozil 600 MG TAB PO SCH (09:26)
[2019-04-19] MEDS: Aspirin 81 mg Enteric Coated Tablet PO SCH (09:26)
[2019-04-19] MEDS: Ferrous Sulfate 325 MG TAB PO SCH ×2 (09:26→21:33)
[2019-04-19] MEDS: Acetaminophen 500 MG TAB PO PRN ×2 (11:27→21:35)
[2019-04-19] MEDS: traMADol HCl 50 MG TAB PO PRN ×2 (12:13→16:24)
--- NOTE | 2019-04-19 15:02 | PDOC.HOSPP ---
- Subjective Encounter Date: 04/19/19 Encounter Time: 08:00 Subjective: Pt seen for followup re; bacteremia. Denies chest pain or shortness of breath. c/o abdo discomfort. No fevers or chills. - Objective Vital Signs & Weight: Vital Signs (12 hours) Temp Pulse Resp BP BP Pulse Ox 04/19/19 12:00 99 F 80 17 128/60 98 04/19/19 08:25 98.0 F 83 18 111/50 L 97 04/19/19 04:00 66 19 143/64 H 97 Weight Weight 208 lb 1.6 oz I&O: 04/18/19 04/19/19 04/20/19 06:59 06:59 06:59 Intake Total 960 600 Output Total 3000 Balance -2040 600 Result Diagrams: 04/19/19 04:24 04/19/19 03:30 Additional Labs: Accuchecks 04/19/19 04/18/19 04/18/19 10:48 20:27 16:30 POC Glucose 161 H 70 111 H Labs and MARs reviewed by me EKG Reviewed by me: Yes (Tele: NSR) Hospitalist ROS - Review of Systems Cardiovascular: denies: chest pain, palpitations, orthopnea, paroxysmal noc. dyspnea, edema, light headedness Gastrointestinal: reports: abdominal pain. denies: nausea, vomiting, diarrhea, constipation, melena, hematochezia - Medication Medications: Active Medications Generic Name Dose Route Start Last Admin Trade Name Freq PRN Reason Stop Dose Admin Acetaminophen 1,000 mg 04/15/19 15:32 04/19/19 11:27 Tylenol PO 1,000 mg Q6H PRN Administration Moderate to Severe Pain (6-10) Hydrocodone Bitart/Acetaminophen 1 tab 04/13/19 19:49 04/19/19 10:21 [place] 5/325 PO 1 tab Q4H PRN Administration Moderate Pain (4-6) Amlodipine Besylate 5 mg 04/15/19 09:00 04/19/19 09:24 Norvasc PO Not Given DAILY HOMERO Aspirin 81 mg 04/18/19 09:00 04/19/19 09:26 Ecotrin PO 81 mg DAILY HOMERO Administration Atorvastatin Calcium 20 mg 04/14/19 21:00 04/18/19 20:23 Lipitor PO 20 mg HS HOMERO Administration Bisacodyl 10 mg 04/16/19 12:32 04/18/19 09:20 Dulcolax PO 10 mg DAILYPRN PRN Administration Constipation Clonidine 0.1 mg 04/14/19 21:00 04/19/19 09:25 Catapres PO Not Given BID HOMERO Cyclobenzaprine HCl 10 mg 04/15/19 18:16 04/17/19 02:30 Flexeril PO 10 mg TIDPRN PRN Administration Muscle Spasm Famotidine 20 mg 04/16/19 09:00 04/19/19 09:26 Pepcid PO 20 mg DAILY HOMERO Administration Ferrous Sulfate 325 mg 04/17/19 21:00 04/19/19 09:26 Feosol PO 325 mg BID HOMERO Administration Gemfibrozil 600 mg 04/15/19 09:00 04/19/19 09:26 Lopid PO 600 mg DAILY HOMERO Administration Heparin Sodium (Porcine) 5,000 units 04/13/19 21:00 04/19/19 09:26 Heparin SC 5,000 units TID [facility] Administration Vancomycin HCl 1.25 gm/ Sodium 250 mls @ 166.667 mls/hr 04/17/19 10:30 10:45 Chloride IVPB 250 mls WILLCALL HOMERO Administration Insulin Human Isoph/Insulin Regular 25 units 04/14/19 18:00 04/18/19 18:04 Humulin 70/30 SC 25 unit 1800 HOMERO Administration Insulin Human Isoph/Insulin Regular 35 units 04/15/19 07:30 04/19/19 09:24 Humulin 70/30 SC 35 unit DAILY-AC HOMERO Administration Insulin Human Regular 0 units 04/15/19 21:47 04/18/19 12:18 Humulin R SC 2 unit .MODERATE SLIDING SC PRN Administration Moderate Correctional Scale Insulin Human Regular 0 units 04/15/19 21:47 04/15/19 23:04 Humulin R SC 3 unit .BEDTIME SLIDING SC PRN Administration Bedtime Correctional Scale Metoprolol Tartrate 25 mg 04/14/19 21:00 04/19/19 09:25 Lopressor PO Not Given BID [facility] Ondansetron HCl 4 mg 04/14/19 19:03 04/15/19 17:17 Zofran IVP 4 mg Q6H PRN Administration Nausea/Vomiting Polyethylene Glycol 17 gm 04/19/19 09:00 04/19/19 09:25 Miralax PO Not Given DAILY HOMERO Sertraline HCl 100 mg 04/17/19 21:00 04/19/19 09:26 Zoloft PO 100 mg BID HOMERO Administration Tramadol HCl 50 mg 04/15/19 15:32 04/19/19 12:13 Ultram PO 50 mg Q4H PRN Administration Mild Pain - Exam General - other findings: Morbid obesity Eye: anicteric sclera ENT: moist mucosa Neck: supple Heart: RRR Respiratory: CTAB, no rales Gastrointestinal: soft, non-tender Extremities: 2+ LE edema Musculoskeletal: normal tone Psychiatric: normal affect Hosp A/P (1) Bacteremia Code(s): R78.81 - BACTEREMIA Status: Acute (2) Acute metabolic encephalopathy Code(s): G93.41 - METABOLIC ENCEPHALOPATHY Status: Acute (3) DM2 (diabetes mellitus, type 2) Status: Chronic (4) Dyslipidemia Code(s): E78.5 - HYPERLIPIDEMIA, UNSPECIFIED Status: Chronic (5) ESRD on hemodialysis Code(s): N18.6 - END STAGE RENAL DISEASE; Z99.2 - DEPENDENCE ON RENAL DIALYSIS Status: Chronic (6) Hypertension Code(s): I10 - ESSENTIAL (PRIMARY) HYPERTENSION Status: Chronic (7) Back pain Code(s): M54.9 - DORSALGIA, UNSPECIFIED Status: Resolved (8) Dialysis AV fistula infection Code(s): T82.7XXA - INFECT/INFLM REACT D/T OTH CARDI/VASC DEV/IMPLNT/GRFT, INIT Status: Ruled-out (9) Sepsis Code(s): A41.9 - SEPSIS, UNSPECIFIED ORGANISM Status: Resolved - Plan plan discussed w/ family, continue antibiotics, out of bed/ambulate Oriented x 3 today Pt reportedly had diarrhea, check stool for C. diff Consult ID re: bacteremia. On and off episodes of acute metabolic encephalopathy, check CT brain. r
--- NOTE | 2019-04-19 16:13 | EKG ---
Test Reason : Blood Pressure : / mmHG Vent. Rate : 107 BPM Atrial Rate : 107 BPM P-R Int : 148 ms QRS Dur : 072 ms QT Int : 354 ms P-R-T Axes : 060 -14 060 degrees QTc Int : 472 ms Sinus tachycardia Otherwise normal ECG When compared with ECG of 13-APR-2019 10:34, (Unconfirmed) No significant change was found Confirmed by DR. Preston NAVARRO ([id number]) on 04/19/2019 4:13:14 PM Referred By: Confirmed By:DR. Preston NAVARRO
--- NOTE | 2019-04-19 16:44 | CT ---
CT BRAIN WITHOUT CONTRAST: HISTORY: Altered mental status Comparison: 11/15/2018 FINDINGS: No evidence of acute infarct, hemorrhage, midline shift or abnormal extra-axial fluid collections is seen. The ventricular size is appropriate and the basilar cisterns are patent. The bony calvarium is intact. The visualized paranasal sinuses and mastoid air cells are well aerated. IMPRESSION: No CT evidence of acute intracranial process.
--- NOTE | 2019-04-19 18:33 | RAD ---
TWO VIEWS ABDOMEN: History: Pain. FINDINGS: There appear to be changes in the lung bases, incompletely evaluated. Bowel gas pattern is nonspecific. No suspicious densities in the abdomen or pelvis. No pneumoperitoneum on the upright projection, with respect to the left hemidiaphragm. The right miguel a diaphragms is obscured. Repeat upright radiograph is recommended to include the right hemidiaphragm. Vascular catheter along the right inguinal region is noted. IMPRESSION: 1. Bibasilar opacities suspected. 2. Limited evaluation for pneumoperitoneum on the upright projection. Consider upright chest radiogra ph for better interrogation of both findings/entities. 3. Bowel gas pattern is nonspecific. POS: [facility]
[2019-04-19] MEDS: Piperacillin/Tazobactam 2.25 GM in Sodium Chloride 0.9% 100 ML IVPB SCH (21:32)
[2019-04-19] MEDS: Atorvastatin Calcium 20 MG TAB PO SCH (21:34)
--- NOTE | 2019-04-19 21:43 | RAD ---
CHEST ONE VIEW: Comparison: 04-19-19 History: Bibasilar opacity on recent chest radiograph. FINDINGS: There do appear to be increased interstitial opacities throughout the lung parenchyma, including the lung bases. Correlate for interstitial edema or infiltrate. No pneumoperitoneum. IMPRESSION: 1. Patchy interstitial opacities may represent edema or infiltrate. 2. No pneumoperitoneum underneath the right hemidiaphragm. POS: [facility]
[2019-04-19] MEDS ORDERED: Piperacillin/Tazobactam 4.5 GM in Sodium Chloride 0.9% 100 ML IVPB SCH (22:00)
[2019-04-19] MEDS ORDERED: Dextrose 50% Abboject 50 ML SYRINGE ONE (23:33)
--- NOTE | 2019-04-20 00:33 | PDOC.EVN ---
Event Note - Event Note Event Note: Code Jean called after pt found down in room with glucose in 30's. Apparently landed on R-side striking face and torso on the floor. Vitals reviewed and O2 sat in mid-90's on RA. HEENT: groggy, answers questions slowly, PERRLA, EOMI, R cheek with edema, discoloration, OP clear, Nares patent, cervical spine without TTP, no JVD No adenopathy CHEST: LCTAB CV: S1, S2 ABD: Obese, soft, ND, BS + EXT: clammy, diaphoretic, warm, no peripheral edema NEURO: lethargic, answers questions briefly, moves all extremities CT brain - no acute intracranial process by my read C-spine - no acute process, fx by my read, await final radiologist interpretation CT facial bones - no acute fx by my read, await final radiologist interpretation , soft tissue edema of R cheek Glucose 30 increased to 154 after amp D50 Tele - SR A/P: Hypoglycemia/Syncope - Give 1/2 amp D50 now, serial glucose, check CT brain and C-spine now, d/c pm Humulin, decrease am Humulin 15u CHI post fall - see above, general fall risk precautions, check CT facial bones ESRD on HD - resume HD per Nephrology, no evidence of acute volume overload Leukocytosis - + stap spp on blood cx 04/13/19, Domingo currently, monitor for sepsis, ID consulted Total critical care time: 35min
[2019-04-20] MEDS: Morphine 2 MG/ML SYRINGE SLOW IVP PRN ×2 (01:14→07:07)
[2019-04-20 05:57] LABS: Band 3 % (5-11); Hemoglobin 10.2 g/dL (12.0-16.0); Hypochromia SLIGHT = 6-15 cells (100X) (0-5/hpf); Lymphocytes 2 % (21-51); MDiff Complete? YES; Mean Corpuscular HGB CONC 32.9 g/dL (32.0-36.0); Mean Corpuscular Hemoglobin 32.4 pg (27.0-31.0); Mean Corpuscular Volume 98.5 fL (78.0-98.0); Mean Platelet Volume 7.8 fL (7.4-10.4); Monocytes 5 % (0-10); Neutrophil 90 % (42-75); Platelet Count 340 thou/uL (130-400); Platelet Morphology Comment Appears Adequate; RBC Distribution Width 13.6 % (11.5-14.5); Red Blood Cell (RBC) Count 3.15 mill/uL (4.20-5.40); White Blood Cell (WBC) Count 34.1 thou/uL (4.8-10.8)
[2019-04-20 05:59] LABS: Anion Gap 23 mmol/L (10-20); BUN (Urea Nitrogen) 62 mg/dL (9.8-20.1); Calc. Creatinine Clearance 16 mL/min (70-130); Calcium 9.1 mg/dL (7.8-10.44); Carbon Dioxide 21 mmol/L (22-29); Chloride 87 mmol/L (98-107); Estimated GFR-MDRD 8; Potassium 4.6 mmol/L (3.5-5.1); Sodium 126 mmol/L (136-145)
[2019-04-20 06:09] LABS: Glucose 53 mg/dL (70-105)
--- NOTE | 2019-04-20 07:55 | CT ---
PRELIMINARY REPORT/[facility]/EMERGENCY AFTER HOURS PROCEDURE: PROCEDURE INFORMATION: Exam: CT Head Without Contrast Exam date and time: 04/20/2019 12:28 AM Clinical history: 59 years old, female; Injury or trauma; Initial encounter; Abrasion; Face; Patient HX: Unwitnessed fall; PT found on floor facing down. TECHNIQUE: Imaging protocol: Computed tomography of the head without contrast. COMPARISON: No relevant prior studies available. FINDINGS: Brain: No brain edema. No intracranial hemorrhage. Ventricles: Normal. No ventriculomegaly. Bones/joints: Unremarkable. No acute fracture. Sinuses: Visualized sinuses are unremarkable. No fluid levels. Mastoid air cells: Visualized mastoid air cells are well aerated. Soft tissues: Right facial hematoma. IMPRESSION: No acute brain findings. Thank you for allowing us to participate in the care of your patient. Dictated and Authenticated by: Jimenez Francisco MD 04/20/2019 12:38 AM Central Time ([place] & [place]) FINAL REPORT HEAD CT WITHOUT CONTRAST: Date: 04/20/19 HISTORY: Unwitnessed fall. COMPARISON: 04/19/19. FINDINGS/IMPRESSION: This report is in agreement with the preliminary report by Robin. Right facial hematoma. No intracrani al post-traumatic sequelae. POS: [facility]
--- NOTE | 2019-04-20 07:58 | CT ---
PRELIMINARY REPORT/[facility]/EMERGENCY AFTER HOURS PROCEDURE: PROCEDURE INFORMATION: Exam: CT Maxillofacial Without Contrast Exam date and time: 04/20/2019 12:50 AM Clinical history: 59 years old, female; Injury or trauma; Initial encounter; Abrasion; Cheek bone; Pa tient HX: Fall, right cheek swelling/pain TECHNIQUE: Imaging protocol: Computed tomography images of the face without contrast. COMPARISON: No relevant prior studies available. FINDINGS: Orbits: Chronic left ocular postsurgical change. Sinuses: Normal. No air-fluid levels. Bones/joints: No fracture. Soft tissues: Right facial hematoma. IMPRESSION: No fracture. Thank you for allowing us to participate in the care of your patient. Dictated and Authenticated by: Jimenez Francisco MD 04/20/2019 1:09 AM Central Time ([place] & [place]) FINAL REPORT FACIAL BONES CT WITHOUT CONTRAST: Date: 04/20/19 HISTORY: Fall. Trauma. Right facial swelling. FINDINGS/IMPRESSION: This report is in agreement with the preliminary report by Robin. No maxillofacial fracture. There is right facial hematoma with a fluid-fluid level. POS: [facility]
--- NOTE | 2019-04-20 08:10 | PRG ---
DATE OF SERVICE: 04/18/2019 SUBJECTIVE: Patient was seen and examined at bedside and overnight events noted. Patient denies any shortness of breath or chest pain or palpitation. No history of nausea or vomiting or diarrhea or fever or chills or cramps. OBJECTIVE: GENERAL: This is an obese female, in mild distress. VITAL SIGNS: Temperature 98.5, blood pressure 141/66. HEENT: Atraumatic, normocephalic. Oral mucosa is moist NECK: Supple. CARDIOVASCULAR: S1, S2 heard. Rate and rhythm regular. RESPIRATORY: Clear to auscultation. GASTROINTESTINAL: Abdomen is soft. MUSCULOSKELETAL: No tenderness. No edema. DERMATOLOGIC: No skin rash. NEUROLOGIC: Alert and awake and oriented X3. No focal neurologic deficits. Moving all the extremities. PSYCHIATRIC: Mood and affect normal. LABORATORY DATA: Potassium 3.4, BUN 29, creatinine 3.86. ASSESSMENT AND PLAN: 1. End-stage renal disease. Continue dialysis Saturday, Saturday, Saturday. 2. Edema, remove fluid. 3. H/o HTN 4. Anemia of chronic disease Plan to monitor labs closely. Continue dialysis as tolerated. Job ID: [id number] [facility]
[2019-04-20 08:47] LABS: Vancomycin, Random 9.9 ug/mL (See Comment)
[2019-04-20] MEDS ORDERED: Piperacillin/Tazobactam 0.75 GM in Sodium Chloride 0.9% 100 ML IVPB SCH (09:00)
--- NOTE | 2019-04-20 09:06 | RAD ---
CERVICAL SPINE 4 VIEWS: Date: 04/20/19 COMPARISON: None. HISTORY: Fall, closed head injury. FINDINGS: Frontal imaging demonstrates a right-sided dialysis catheter. The dens appears unremarkable on the pr ovided Fuchs view. Mild multilevel right-sided facet hypertrophy. Cross-table lateral view of the cervical spine provided, significantly limited in detail. The lateral examination only well evaluates the C1-C4 levels and thus, the mid and lower cervical spine are not adequately assessed on this exam. IMPRESSION: Suboptimal evaluation of the cervical spine. Given history of trauma, CT examination required for ful l assessment of cervical spine. CODE T. POS: [facility]
[2019-04-20] MEDS: traMADol HCl 50 MG TAB PO PRN (09:07)
[2019-04-20] MEDS: HumuLIN 70/30 (300 UNITS/3 ML VIAL) SC SCH (09:30)
[2019-04-20] MEDS ORDERED: Iopamidol 370 76% 100 ML VIAL ONE (11:02)
[2019-04-20] MEDS: HYDROcodone/Acetaminophen 5/325 mg Tablet PO PRN (11:12)
--- NOTE | 2019-04-20 11:42 | PRG ---
DATE OF SERVICE: 04/20/2019 SUBJECTIVE: This is a 59-year-old female, being seen for end-stage renal disease. The patient denied nausea, vomiting, or chest pain. OBJECTIVE: CONSTITUTIONAL: The patient is awake and alert. VITAL SIGNS: Afebrile. Pulse 75, breathing 16, blood pressure 136/63. GENERAL APPEARANCE AND MENTAL STATUS: Fair. HEAD/NECK: Normocephalic. Atraumatic. EYES: EOMI. No deformity. EARS: Clear. No ulcers. NOSE: Intact. No lesions. MOUTH: Clear. No discharge. THROAT: Clear. No exudate. LUNGS: Clear. No crackles. CARDIAC: S1, S2. No rub. ABDOMEN: Benign. Bowel sounds positive. GENITALIA/RECTUM: Weeks absent. BACK/EXTREMITIES: Edema 0+. NEUROLOGICAL: Alert and motor intact. SKIN: LYMPHATICS: LABORATORY DATA: Reviewed. ASSESSMENT AND PLAN: 1. Stage 6 chronic kidney disease, continue hemodialysis. 2. Hypertension, stable. 3. Anemia, stable. 4. Medication based on GFR, appropriate. Job ID: [id number]
[2019-04-20] MEDS: Amlodipine 5 MG TAB PO SCH (12:45)
[2019-04-20] MEDS: Heparin 5,000 UNITS/ML VIAL SC SCH ×3 (12:45→20:10)
[2019-04-20] MEDS: cloNIDine 0.1 MG TAB PO SCH ×2 (12:45→20:10)
[2019-04-20] MEDS: Polyethylene Glycol 3350 17 GM Packet PO SCH (12:46)
[2019-04-20] MEDS: Aspirin 81 mg Enteric Coated Tablet PO SCH (12:47)
[2019-04-20] MEDS: Metoprolol Tartrate 25 MG TAB PO SCH ×2 (12:48→20:08)
[2019-04-20] MEDS: Ferrous Sulfate 325 MG TAB PO SCH ×2 (12:48→20:08)
[2019-04-20] MEDS: Gemfibrozil 600 MG TAB PO SCH (12:48)
[2019-04-20] MEDS: Famotidine 20 MG TAB PO SCH (12:49)
[2019-04-20] MEDS ORDERED: Piperacillin/Tazobactam 0.75 GM, Admixture Fee 1 EACH in Sodium Chloride 0.9% 100 ML IVPB SCH (13:15)
[2019-04-20 13:53] VITALS: BMI 40.6
[2019-04-20] MEDS: Piperacillin/Tazobactam 2.25 GM in Sodium Chloride 0.9% 100 ML IVPB SCH (14:05)
[2019-04-20] MEDS ORDERED: Heparin 10,000 UNITS/1 ML VIAL ONE (15:00)
--- NOTE | 2019-04-20 15:31 | CT ---
CT abdomen and pelvis: 04/20/2019 COMPARISON: 11/15/2018 HISTORY: Abdominal pain, leukocytosis TECHNIQUE: Axial CT imaging at 5 mm intervals from lung bases with intravenous and oral contrast. Cor onal and sagittal reformatted imaging obtained. FINDINGS: Incompletely assessed coronary arterial calcification noted. Mild linear density noted in the bilateral medial lower lobe superior segments which may signify volu me loss or infiltrate. Nonspecific nodular opacity noted within the anterior lateral aspect of the mid right lung measuring 9 mm, for which follow-up imaging is advised. No free intraperitoneal air or fluid is seen. The liver appears grossly unremarkable. There is mild nonspecific distention of the gallbladder, whic h measures 4.9 cm in transverse dimension. The spleen is unremarkable. There is fatty atrophy of the pancreatic parenchyma. The adrenal glands are unremarkable. Bilateral kidneys appear atrophic. No evidence for bowel inflammatory change or obstruction. Scattered multifocal atherosclerotic calcification of the abdominal aorta and its branches noted. There is nonspecific soft tissue stranding of the prevertebral/paravertebral fat at the T8 level susp icious for inflammatory change, etiology uncertain. No discrete lytic or blastic bone lesion. No acute fracture or evidence of dislocation is seen. There is a venous catheter in the right femoral region. Small fat-containing umbilical hernia. IMPRESSION: Subtle inflammatory change suspected anterior to the T8 vertebral body. This may be relat ed to an infectious process, including discitis/osteomyelitis. Recommend thoracic spine MRI is advised. Results called to Dr. Salter at 3:25 PM 04/20/2019.
--- NOTE | 2019-04-20 19:10 | PDOC.HOSPP ---
- Subjective Encounter Date: 04/20/19 Encounter Time: 19:09 Subjective: Pt seen for followup re: bacteremia. Fell last night, facial injury, no fracture. - Objective Vital Signs & Weight: Vital Signs (12 hours) Temp Pulse Resp BP Pulse Ox 04/20/19 16:00 97.7 F 72 20 115/56 L 94 L 04/20/19 11:15 98.2 F 67 18 109/64 100 04/20/19 07:25 97.8 F 75 16 113/52 L 98 Weight Admit Weight 201 lb Weight 208 lb 1.6 oz I&O: 04/19/19 04/20/19 04/21/19 06:59 06:59 06:59 Intake Total 600 720 Output Total 1150 Balance 600 -430 Result Diagrams: 04/20/19 04:55 04/20/19 04:55 Additional Labs: Accuchecks 04/20/19 04/20/19 04/20/19 16:49 11:52 09:03 POC Glucose 173 H 116 H 94 04/20/19 04/20/19 04/20/19 05:23 01:07 00:21 POC Glucose 73 119 H 154 H 04/20/19 04/19/19 04/19/19 00:06 20:26 05:26 POC Glucose Less than 35 L* 147 H 68 L Labs and MARs reviewed by me EKG Reviewed by me: Yes (Tele: NSR) Hospitalist ROS - Review of Systems Cardiovascular: denies: chest pain, palpitations, orthopnea, paroxysmal noc. dyspnea, edema, light headedness Gastrointestinal: reports: abdominal pain. denies: nausea, vomiting, diarrhea, constipation, melena, hematochezia Musculoskeletal: reports: back pain - Medication Medications: Active Medications Generic Name Dose Route Start Last Admin Trade Name Freq PRN Reason Stop Dose Admin Acetaminophen 1,000 mg 04/15/19 15:32 04/19/19 21:35 Tylenol PO 1,000 mg Q6H PRN Administration Moderate to Severe Pain (6-10) Hydrocodone Bitart/Acetaminophen 1 tab 04/13/19 19:49 04/20/19 11:12 [place] 5/325 PO 1 tab Q4H PRN Administration Moderate Pain (4-6) Amlodipine Besylate 5 mg 04/15/19 09:00 04/20/19 12:45 Norvasc PO Not Given DAILY [facility] Aspirin 81 mg 04/18/19 09:00 04/20/19 12:47 Ecotrin PO 81 mg DAILY [facility] Administration Atorvastatin Calcium 20 mg 04/14/19 21:00 04/19/19 21:34 Lipitor PO 20 mg HS [facility] Administration Bisacodyl 10 mg 04/16/19 12:32 04/18/19 09:20 Dulcolax PO 10 mg DAILYPRN PRN Administration Constipation Clonidine 0.1 mg 04/14/19 21:00 04/20/19 12:45 Catapres PO Not Given BID [facility] Cyclobenzaprine HCl 10 mg 04/15/19 18:16 04/17/19 02:30 Flexeril PO 10 mg TIDPRN PRN Administration Muscle Spasm Famotidine 20 mg 04/16/19 09:00 04/20/19 12:49 Pepcid PO 20 mg DAILY [facility] Administration Ferrous Sulfate 325 mg 04/17/19 21:00 04/20/19 12:48 Feosol PO 325 mg BID [facility] Administration Gemfibrozil 600 mg 04/15/19 09:00 04/20/19 12:48 Lopid PO 600 mg DAILY [facility] Administration Heparin Sodium (Porcine) 5,000 units 04/13/19 21:00 04/20/19 17:22 Heparin SC 5,000 units TID [facility] Administration Piperacillin Sod/Tazobactam 100 mls @ 200 mls/hr 04/20/19 13:15 04/20/19 14: 06 Sod 0.75 gm/ Miscellaneous IVPB 100 mls Medication 1 each/ Sodium WILLCALL [facility] Administration Chloride Insulin Human Isoph/Insulin Regular 15 units 04/20/19 07:30 04/20/19 09:30 Humulin 70/30 SC Not Given DAILY-AC [facility] Insulin Human Regular 0 units 04/15/19 21:47 04/18/19 12:18 Humulin R SC 2 unit .MODERATE SLIDING SC PRN Administration Moderate Correctional Scale Insulin Human Regular 0 units 04/15/19 21:47 04/15/19 23:04 Humulin R SC 3 unit .BEDTIME SLIDING SC PRN Administration Bedtime Correctional Scale Metoprolol Tartrate 25 mg 04/14/19 21:00 04/20/19 12:48 Lopressor PO 25 mg BID [facility] Administration Morphine Sulfate 1 mg 04/17/19 14:43 04/20/19 07:07 Morphine SLOW IVP 1 mg Q6H PRN Administration Moderate to Severe Pain (6-10) Ondansetron HCl 4 mg 04/14/19 19:03 04/15/19 17:17 Zofran IVP 4 mg Q6H PRN Administration Nausea/Vomiting Polyethylene Glycol 17 gm 04/19/19 09:00 04/20/19 12:46 Miralax PO Not Given DAILY [facility] Sertraline HCl 100 mg 04/17/19 21:00 04/20/19 12:48 Zoloft PO 100 mg BID [facility] Administration Sodium Chloride 10 ml 04/19/19 21:00 04/20/19 12:50 Flush - Normal Saline IVF 10 ml Q12HR [facility] Administration Tramadol HCl 50 mg 04/15/19 15:32 04/20/19 09:07 Ultram PO 50 mg Q4H PRN Administration Mild Pain - Exam General - other findings: Morbid obesity Eye: anicteric sclera ENT: moist mucosa Neck: supple Heart: RRR Respiratory: CTAB Gastrointestinal: soft, non-tender Extremities: no clubbing Psychiatric: normal affect, normal behavior Hosp A/P (1) Bacteremia Code(s): R78.81 - BACTEREMIA Status: Acute (2) Acute metabolic encephalopathy Code(s): G93.41 - METABOLIC ENCEPHALOPATHY Status: Acute (3) DM2 (diabetes mellitus, type 2) Status: Chronic (4) Dyslipidemia Code(s): E78.5 - HYPERLIPIDEMIA, UNSPECIFIED Status: Chronic (5) ESRD on hemodialysis Code(s): N18.6 - END STAGE RENAL DISEASE; Z99.2 - DEPENDENCE ON RENAL DIALYSIS Status: Chronic (6) Hypertension Code(s): I10 - ESSENTIAL (PRIMARY) HYPERTENSION Status: Chronic (7) Back pain Code(s): M54.9 - DORSALGIA, UNSPECIFIED Status: Resolved (8) Dialysis AV fistula infection Code(s): T82.7XXA - INFECT/INFLM REACT D/T OTH CARDI/VASC DEV/IMPLNT/GRFT, INIT Status: Ruled-out (9) Sepsis Code(s): A41.9 - SEPSIS, UNSPECIFIED ORGANISM Status: Resolved - Plan plan discussed w/ family, continue antibiotics, out of bed/ambulate C. diff negative. Fall overnight. CT abdo suspicious for T8 discitis/osteomyelitis, MRI ordered. r
[2019-04-20] MEDS: Atorvastatin Calcium 20 MG TAB PO SCH (20:08)
[2019-04-20] MEDS: Oxacillin 2 GM in Sodium Chloride 0.9% 100 ML IVPB SCH (20:10)
[2019-04-20] MEDS: Acetaminophen 500 MG TAB PO PRN (20:11)
[2019-04-21] MEDS: Acetaminophen 500 MG TAB PO PRN (01:29)
[2019-04-21] MEDS: Oxacillin 2 GM in Sodium Chloride 0.9% 100 ML IVPB SCH ×6 (01:29→19:51)
[2019-04-21 05:03] LABS: Hemoglobin 9.5 g/dL (12.0-16.0); Mean Corpuscular HGB CONC 32.4 g/dL (32.0-36.0); Mean Corpuscular Hemoglobin 31.3 pg (27.0-31.0); Mean Corpuscular Volume 96.5 fL (78.0-98.0); Mean Platelet Volume 7.2 fL (7.4-10.4); Platelet Count 384 thou/uL (130-400); RBC Distribution Width 13.9 % (11.5-14.5); Red Blood Cell (RBC) Count 3.04 mill/uL (4.20-5.40); White Blood Cell (WBC) Count 33.8 thou/uL (4.8-10.8)
[2019-04-21 05:04] LABS: Anion Gap 16 mmol/L (10-20); BUN (Urea Nitrogen) 29 mg/dL (9.8-20.1); Band 2 % (5-11); Calc. Creatinine Clearance 24 mL/min (70-130); Calcium 8.8 mg/dL (7.8-10.44); Carbon Dioxide 25 mmol/L (22-29); Chloride 91 mmol/L (98-107); Estimated GFR-MDRD 12; Glucose 130 mg/dL (70-105); Lymphocytes 9 % (21-51); MDiff Complete? YES; Metamyelocyte 3 % (0-0); Monocytes 5 % (0-10); Myelocyte 2 % (0-0); Neutrophil 79 % (42-75); Platelet Morphology Comment Appears Adequate; Potassium 3.9 mmol/L (3.5-5.1); Sodium 128 mmol/L (136-145)
--- NOTE | 2019-04-21 08:17 | CON ---
DATE OF CONSULTATION: 04/20/2019 REASON FOR CONSULTATION: Bacteremia. HISTORY OF PRESENT ILLNESS: A 59-year-old with history of type 2 diabetes, end-stage renal disease on hemodialysis previously through an AV fistula left upper extremity, coronary disease with prior stents who has had interventions in the left upper extremity dialysis access by Dr. Benito. The first one was on April 14 because of dysfunctional left arm dialysis fistula basilic vein with multiple stents in the arterial inflow. She had indurated area with fever and poor access. She had a right femoral vein triple-lumen catheter placed for IV access and then on April 15, she had hemorrhage from the fistula and had to go on an emergency basis to the operating room, had ligation and excision of segment of fistula. There was a large hole within it and stent was within and was not repairable. All those areas were dissected free and excised and debrided, and then she had a right IJ tunneled hemodialysis catheter placed. Of note, she was having fever before this process and had two sets of blood cultures obtained the day before on April 13 positive for Staphylococcus aureus methicillin-susceptible organism. She was having some back pain in the midthoracic spine area. There were cultures from July 22 and from February 22 from the skin, which showed same organism. On July 22, I had seen this patient for bacteremia and the impression then was possibility of endocarditis, possibility of thoracic spine infection was considered at that time. We recommended treatment assuming endocarditis with cefazolin and oral ciprofloxacin. She completed the therapy and has not been seen in the clinic since. She has continued to have pain in thoracic spine area, which seems to have intensified. She has some neck pain, which has improved now. No headaches. No visual symptoms. The patient fell in the room because of sliding from the bed and hit the right side of face. CT scans were completed, which did not show any fracture but she does have hematoma in that area. Previous echocardiogram was done in July, which showed no evidence of mass or vegetation. She does not have urinary output. PAST MEDICAL HISTORY: Includes type 2 diabetes, end-stage renal disease on hemodialysis previously through an AV fistula, prior stent procedures through multiple sites in the AV fistula, and dysfunction, superimposed infection following interventions, this is a presumed case in February. History of coronary artery disease with stents. PAST SURGICAL HISTORY: Includes appendectomy and dialysis access placements. SOCIAL HISTORY: Former smoker, quit less than 10 years ago. Lives with family. ALLERGIES: NONE. CURRENT MEDICATIONS: 1. Tylenol. 2. [place]. 3. Norvasc. 4. Ecotrin. 5. Lipitor. 6. Dulcolax. 7. Catapres. 8. Flexeril. 9. Feosol. 10. Pepcid. 11. Glucagon. 12. Lopid. 13. Humulin insulin. 14. Morphine. 15. She had been on Zosyn and vancomycin, and I have switched her to oxacillin. PHYSICAL EXAMINATION: VITAL SIGNS: T-max 100 on the , she has been afebrile since, other vital signs are stable. SKIN: Shows area of bruising, swelling on the right side of the face. She has right tunneled IJ hemodialysis catheter. Triple-lumen catheter in the right groin. She has the area of surgical intervention of the left wound near the fistula site. No lymphadenopathy. HEENT: Ocular movements appear to be conjugate. Sclerae white. Pupils are equal. Oral cavity moist, quite a few teeth in place with some decay and gum disease. NECK: Supple. No jugular vein distention or carotid bruits. LUNGS: Symmetric air entry. HEART: S1 and S2, regular rate without murmurs. BACK: Marked back tenderness in the midthoracic spine area. ABDOMEN: No abdominal pain or distention. No organomegaly. No bladder distention. No other joint inflammatory activity noted. Pulses are 1+ in dorsalis pedis. Plantar responses are flexor. Preserved strength in all 4 extremities. Awake, alert, and oriented. LABORATORY DATA: White cell count is up from 22,000 to 34,000; hemoglobin 10; platelets 340, with 90% neutrophils. Sodium 126, creatinine 5.61. Liver profile was within normal limits. Albumin 4.0. Microbiology as noted above. Abdomen and pelvis CT with subtle inflammatory change along T8 vertebral body and facial bone CT without fracture, but there is a hematoma on the right side. Chest x-rays with patchy interstitial opacities ASSESSMENT: 1. End-stage renal disease. 2. Type 2 diabetes. 3. Hemodialysis with an AV fistula, left upper extremity with complications reported above, which required placement of a tunneled hemodialysis catheter and surgical interventions to fix the bleeding area, probably pseudoaneurysm, possible superimposed infection. 4. Thoracic spine pain with abnormalities noted which are serendipitously found on CT scan of the abdomen. Those are referred to the vertebrae T8 and MRI is scheduled to further inquire about this finding. 5. Prior methicillin-sensitive Staphylococcus aureus bacteremia in July 2018 , treated for 4 weeks. DISCUSSION: The patient will be transitioned to oxacillin, and we will follow up the thoracic spine MRI. She is at risk for endocarditis since the bacteremia was detected before all the devices were inserted. She did have bacteremia in July 2018. So there is a distinct possibility that she might have endocarditis and may have to order a ANCELMO. For the time being, I would continue oxacillin stabilizer. Check the MRI of the thoracic spine to see what the finding corresponds to. Down the road, we will probably end up having to do a ANCELMO to rule out endocarditis. We will eventually treat her through a dialysis access with either cefazolin or vancomycin, ideally cefazolin was adjusted for the dialysis regimen, usually 2 g given the first two sessions of the week and then 3 g the last session. Additionally, I would probably give her quinolone orally. With all those devices, particularly the central lines, she is at risk for colonization of those areas, one would like to remove the groin line as soon as possible. We cannot do it right now because she needs the venous access for treatment, particularly access related to the left upper extremity AV fistula problems. No other areas of involvement are apparent at this time. Job ID: [id number] [facility]
[2019-04-21] MEDS: Aspirin 81 mg Enteric Coated Tablet PO SCH (08:55)
[2019-04-21] MEDS: Ferrous Sulfate 325 MG TAB PO SCH ×2 (08:55→19:52)
[2019-04-21] MEDS: Amlodipine 5 MG TAB PO SCH (08:55)
[2019-04-21] MEDS: Metoprolol Tartrate 25 MG TAB PO SCH ×2 (08:55→19:53)
[2019-04-21] MEDS: cloNIDine 0.1 MG TAB PO SCH ×2 (08:55→19:52)
[2019-04-21] MEDS: Famotidine 20 MG TAB PO SCH (08:55)
[2019-04-21] MEDS: Gemfibrozil 600 MG TAB PO SCH (08:56)
[2019-04-21] MEDS: HumuLIN 70/30 (300 UNITS/3 ML VIAL) SC SCH (09:30)
[2019-04-21] MEDS: Polyethylene Glycol 3350 17 GM Packet PO SCH (09:31)
[2019-04-21] MEDS ORDERED: PROPOFOL 200 MG/20 ML VIAL ONE (09:43)
--- NOTE | 2019-04-21 09:50 | MRI ---
MRI THORACIC SPINE WITHOUT IV CONTRAST: INDICATIONS: Concern for diskitis/osteomyelitis after recent fall. COMPARISON: CT abdomen and pelvis dated 04/20/2019. FINDINGS: There is abnormal signal seen within the disk spaces of T7 and T8, suspicious for diskitis. There is some abnormal marrow signal intensity involving the superior endplate and inferior endplate of T8, young spicious for osteomyelitis. There is a prevertebral phlegmon extending anterior to T7 and T8, measuri ng 3.4 cm. No epidural collection is grossly evident. Motion artifact, particularly on the axial imag es, degrades image resolution. No definite spinal cord signal abnormality is evident. No appreciable neural foraminal narrowing is noted. There is mild multilevel disk degenerative disease of the thorac ic spine. No definite acute fracture is noted. There are some suspected endplate modic degenerative c hanges at T12-L1. IMPRESSION: Findings of diskitis/osteomyelitis at T8-T9 with diskitis changes at T7-T8. There is prevertebral phl egmon extending anterior to T7 and T8, measuring approximately 3.4 cm. Findings were called to Dr. Matty sanchez at 8:45 a.m. on 04/21/2019. CODE CR POS: [facility]
[2019-04-21] MEDS: Heparin 5,000 UNITS/ML VIAL SC SCH ×3 (10:05→19:52)
--- NOTE | 2019-04-21 13:53 | PRG ---
DATE OF SERVICE: 04/21/2019 SUBJECTIVE: This is a 59-year-old female, being seen for end-stage renal disease. The patient denied nausea, vomiting, or chest pain. OBJECTIVE: CONSTITUTIONAL: The patient is awake and alert. VITAL SIGNS: Afebrile. Pulse , breathing 16, blood pressure . GENERAL APPEARANCE AND MENTAL STATUS: Fair. HEAD/NECK: Normocephalic. Atraumatic. EYES: EOMI. No deformity. EARS: Clear. No ulcers. NOSE: Intact. No lesions. MOUTH: Clear. No discharge. THROAT: Clear. No exudate. LUNGS: Clear. No crackles. CARDIAC: S1, S2. No rub. ABDOMEN: Benign. Bowel sounds positive. GENITALIA/RECTUM: Weeks absent. BACK/EXTREMITIES: Edema 0+. NEUROLOGICAL: Alert and motor intact. SKIN: LYMPHATICS: LABORATORY DATA: Reviewed. ASSESSMENT AND PLAN: 1. Chronic kidney disease stage 6, continue hemodialysis. 2. Hypertension, stable. 3. Anemia, stable. 4. Medication based on GFR, appropriate. Job ID: [id number]
--- NOTE | 2019-04-21 18:04 | PDOC.HOSPP ---
- Subjective Encounter Date: 04/21/19 Encounter Time: 08:00 Subjective: Pt seen for followup re: bacteremia. States she feels slightly better. - Objective Vital Signs & Weight: Vital Signs (12 hours) Temp Pulse Resp BP BP Pulse Ox 04/21/19 16:00 98.7 F 67 18 150/60 H 94 L 04/21/19 12:00 98.6 F 63 18 143/66 H 98 04/21/19 08:55 98 04/21/19 07:27 97.1 F L 73 14 152/67 H 93 L Weight Admit Weight 201 lb Weight 208 lb 1.6 oz I&O: 04/20/19 04/21/19 04/22/19 06:59 06:59 06:59 Intake Total 720 Output Total 1150 Balance -430 Result Diagrams: 04/21/19 04:15 04/21/19 04:15 Additional Labs: Accuchecks 04/21/19 04/21/19 04/21/19 16:52 14:13 10:08 POC Glucose 247 H 132 H 171 H 04/21/19 04/20/19 05:14 20:15 POC Glucose 125 H 169 H Labs and MARs reviewed by me EKG Reviewed by me: Yes (Tele: NSR) Hospitalist ROS - Review of Systems Cardiovascular: denies: chest pain, palpitations, orthopnea, paroxysmal noc. dyspnea, edema, light headedness Gastrointestinal: denies: nausea, vomiting, abdominal pain, diarrhea, constipation, melena, hematochezia Musculoskeletal: reports: back pain - Medication Medications: Active Medications Generic Name Dose Route Start Last Admin Trade Name Ronq PRN Reason Stop Dose Admin Acetaminophen 1,000 mg 04/15/19 15:32 04/21/19 01:29 Tylenol PO 1,000 mg Q6H PRN Administration Moderate to Severe Pain (6-10) Hydrocodone Bitart/Acetaminophen 1 tab 04/13/19 19:49 04/20/19 11:12 [place] 5/325 PO 1 tab Q4H PRN Administration Moderate Pain (4-6) Amlodipine Besylate 5 mg 04/15/19 09:00 04/21/19 08:55 Norvasc PO 5 mg DAILY HOMERO Administration Aspirin 81 mg 04/18/19 09:00 04/21/19 08:55 Ecotrin PO 81 mg DAILY HOMERO Administration Atorvastatin Calcium 20 mg 04/14/19 21:00 04/20/19 20:08 Lipitor PO 20 mg HS HOMERO Administration Bisacodyl 10 mg 04/16/19 12:32 04/18/19 09:20 Dulcolax PO 10 mg DAILYPRN PRN Administration Constipation Clonidine 0.1 mg 04/14/19 21:00 04/21/19 08:55 Catapres PO 0.1 mg BID HOMERO Administration Cyclobenzaprine HCl 10 mg 04/15/19 18:16 04/17/19 02:30 Flexeril PO 10 mg TIDPRN PRN Administration Muscle Spasm Famotidine 20 mg 04/16/19 09:00 04/21/19 08:55 Pepcid PO 20 mg DAILY HOMERO Administration Ferrous Sulfate 325 mg 04/17/19 21:00 04/21/19 08:55 Feosol PO 325 mg BID HOMERO Administration Gemfibrozil 600 mg 04/15/19 09:00 04/21/19 08:56 Lopid PO 600 mg DAILY HOMERO Administration Heparin Sodium (Porcine) 5,000 units 04/13/19 21:00 04/21/19 14:12 Heparin SC 5,000 units TID HOMERO Administration Piperacillin Sod/Tazobactam 100 mls @ 200 mls/hr 04/20/19 13:15 04/20/19 14: 06 Sod 0.75 gm/ Miscellaneous IVPB 100 mls Medication 1 each/ Sodium WILLCALL HOMERO Administration Chloride Oxacillin Sodium 2 gm/ Sodium 100 mls @ 200 mls/hr 04/20/19 21:00 04/21/19 17 :09 Chloride IVPB 100 mls Q4HR HOMERO Administration Insulin Human Isoph/Insulin Regular 15 units 04/20/19 07:30 04/21/19 09:30 Humulin 70/30 SC Not Given DAILY-[facility] Insulin Human Regular 0 units 04/15/19 21:47 04/18/19 12:18 Humulin R SC 2 unit .MODERATE SLIDING SC PRN Administration Moderate Correctional Scale Insulin Human Regular 0 units 04/15/19 21:47 04/15/19 23:04 Humulin R SC 3 unit .BEDTIME SLIDING SC PRN Administration Bedtime Correctional Scale Metoprolol Tartrate 25 mg 04/14/19 21:00 04/21/19 08:55 Lopressor PO 25 mg BID [facility]OMERO Administration Morphine Sulfate 1 mg 04/17/19 14:43 04/20/19 07:07 Morphine SLOW IVP 1 mg Q6H PRN Administration Moderate to Severe Pain (6-10) Ondansetron HCl 4 mg 04/14/19 19:03 04/15/19 17:17 Zofran IVP 4 mg Q6H PRN Administration Nausea/Vomiting Polyethylene Glycol 17 gm 04/19/19 09:00 04/21/19 09:31 Miralax PO Not Given DAILY HOMERO Sertraline HCl 100 mg 04/17/19 21:00 04/21/19 08:55 Zoloft PO 100 mg BID [facility]ERO Administration Sodium Chloride 10 ml 04/19/19 21:00 04/21/19 08:56 Flush - Normal Saline IVF 10 ml Q12HR [facility]OMERO Administration Tramadol HCl 50 mg 04/15/19 15:32 04/20/19 09:07 Ultram PO 50 mg Q4H PRN Administration Mild Pain - Exam General - other findings: Morbid obesity Eye: anicteric sclera ENT: moist mucosa Neck: supple, no JVD Heart: RRR, no rubs Respiratory: CTAB Gastrointestinal: soft, non-tender, distended Neurological: no weakness Musculoskeletal: no muscle wasting Psychiatric: normal affect, normal behavior Hosp A/P (1) Bacteremia Code(s): R78.81 - BACTEREMIA Status: Acute (2) Discitis Code(s): M46.40 - DISCITIS, UNSPECIFIED, SITE UNSPECIFIED Status: Acute Qualifiers: Spinal region: thoracic Qualified Code(s): M46.44 - Discitis, unspecified, thoracic region (3) Osteomyelitis Code(s): M86.9 - OSTEOMYELITIS, UNSPECIFIED Status: Acute (4) Acute metabolic encephalopathy Code(s): G93.41 - METABOLIC ENCEPHALOPATHY Status: Acute (5) DM2 (diabetes mellitus, type 2) Status: Chronic (6) Dyslipidemia Code(s): E78.5 - HYPERLIPIDEMIA, UNSPECIFIED Status: Chronic (7) ESRD on hemodialysis Code(s): N18.6 - END STAGE RENAL DISEASE; Z99.2 - DEPENDENCE ON RENAL DIALYSIS Status: Chronic (8) Hypertension Code(s): I10 - ESSENTIAL (PRIMARY) HYPERTENSION Status: Chronic (9) Back pain Code(s): M54.9 - DORSALGIA, UNSPECIFIED Status: Resolved (10) Dialysis AV fistula infection Code(s): T82.7XXA - INFECT/INFLM REACT D/T OTH CARDI/VASC DEV/IMPLNT/GRFT, INIT Status: Ruled-out (11) Sepsis Code(s): A41.9 - SEPSIS, UNSPECIFIED ORGANISM Status: Resolved - Plan plan discussed w/ family, continue antibiotics, out of bed/ambulate Continue oxacillin. Pt awaiting ANCELMO. Dialysis per nephrology service for ESRD on dialysis. Mobilize pt. Discitis/osteomyelitis of T spine on MRI. r
[2019-04-21] MEDS: Atorvastatin Calcium 20 MG TAB PO SCH (19:52)
[2019-04-21] MEDS: HYDROcodone/Acetaminophen 5/325 mg Tablet PO PRN (19:53)
[2019-04-22] MEDS: Oxacillin 2 GM in Sodium Chloride 0.9% 100 ML IVPB SCH ×6 (00:26→19:49)
[2019-04-22] MEDS: traMADol HCl 50 MG TAB PO PRN ×2 (01:06→08:29)
--- NOTE | 2019-04-22 08:08 | OP ---
DATE OF PROCEDURE: 04/21/2019 PROCEDURE PERFORMED: Transesophageal echocardiogram. INDICATIONS: A 59-year-old woman with sepsis. DESCRIPTION OF PROCEDURE: The patient was taken to the PACU. The patient was sedated by Anesthesiology. A transesophageal probe was placed into the distal esophagus and stomach. Echocardiographic images were obtained. The transesophageal probe was removed. FINDINGS: 1. Mild decrease in left ventricular systolic function. 2. Left atrial enlargement. 3. Normal mitral, aortic, and tricuspid valves. 4. Mild mitral regurgitation. 5. Mild tricuspid regurgitation. 6. Atherosclerotic debris in the descending aorta. IMPRESSION: No vegetations were noted on the aortic, mitral, or tricuspid valves. Job ID: [id number]
[2019-04-22] MEDS: Morphine 2 MG/ML SYRINGE SLOW IVP PRN (09:46)
[2019-04-22] MEDS: HumuLIN 70/30 (300 UNITS/3 ML VIAL) SC SCH (11:01)
[2019-04-22] MEDS: Aspirin 81 mg Enteric Coated Tablet PO SCH (11:03)
[2019-04-22] MEDS: Metoprolol Tartrate 25 MG TAB PO SCH ×2 (11:03→19:50)
[2019-04-22] MEDS: Gemfibrozil 600 MG TAB PO SCH (11:03)
[2019-04-22] MEDS: Ferrous Sulfate 325 MG TAB PO SCH ×2 (11:04→19:50)
[2019-04-22] MEDS: Famotidine 20 MG TAB PO SCH (11:04)
[2019-04-22] MEDS: cloNIDine 0.1 MG TAB PO SCH ×2 (11:04→19:50)
[2019-04-22] MEDS: Amlodipine 5 MG TAB PO SCH (11:04)
[2019-04-22] MEDS: Heparin 5,000 UNITS/ML VIAL SC SCH ×3 (11:06→19:50)
[2019-04-22] MEDS: Polyethylene Glycol 3350 17 GM Packet PO SCH (11:06)
[2019-04-22] MEDS ORDERED: hydrALAZINE 20 MG/ML VIAL SLOW IVP SCH (11:15)
[2019-04-22] MEDS ORDERED: traMADol HCl 50 MG TAB PO SCH (11:15)
[2019-04-22] MEDS ORDERED: Heparin 10,000 UNITS/ 10 ML VIAL ONE (11:21)
--- NOTE | 2019-04-22 11:22 | PRG ---
DATE OF SERVICE: SUBJECTIVE: A 59-year-old female being seen for end-stage renal disease. The patient is somnolent. OBJECTIVE: GENERAL: The patient is resting. VITAL SIGNS: Pulse 69, breathing 16, blood pressure 135/68. GENERAL APPEARANCE AND MENTAL STATUS: Fair. HEAD/NECK: Normocephalic. Atraumatic. EYES: EOMI. No deformity. EARS: Clear. No ulcers. NOSE: Intact. No lesions. MOUTH: Clear. No discharge. THROAT: Clear. No exudate. LUNGS: Clear. No crackles. CARDIAC: S1, S2. No rub. ABDOMEN: Benign. Bowel sounds positive. GENITALIA/RECTUM: Weeks absent. BACK/EXTREMITIES: Edema 0+. NEUROLOGICAL: Alert and motor intact. SKIN: LYMPHATICS: LABORATORY DATA: Hemoglobin 9.5. ASSESSMENT AND PLAN: 1. Chronic kidney disease, stage 6. Continue dialysis. 2. Hypertension, stable. 3. Anemia, stable. 4. Altered mentation. Management per primary team. Job ID: [id number]
--- NOTE | 2019-04-22 13:10 | PRG ---
DATE OF SERVICE: 04/22/2019 SUBJECTIVE: Nancy Bright has fallen out of bed and has bruised right cheek area, facial. The patient's left upper arm wound reveals that it is healing secondarily. The dressings removed and the wound was not packed. She needs a normal saline wet-to-dry packed into the wound. I replaced the dressing appropriately today. There is no evidence of cellulitis or infection. The patient's right arm dialysis graft was scheduled for next week, but we will put that off for another couple of weeks since she has had such a long prolonged hospitalization. At this point, I will see her as needed. Continue wound care. Arrange outpatient wound care. Follow up in my office in 2 to 3 weeks. Arrange outpatient right arm dialysis fistula, most likely a graft as an outpatient on a nondialysis day, Saturday or . Job ID: [id number]
--- NOTE | 2019-04-22 15:49 | PDOC.HOSPP ---
- Subjective Encounter Date: 04/22/19 Encounter Time: 08:40 Subjective: Pt seen for followup re: bacteremia. c/o back pain. No chest pain. - Objective Vital Signs & Weight: Vital Signs (12 hours) Temp Pulse Resp BP BP BP BP 04/22/19 11:51 162/66 H 04/22/19 11:12 177/77 H 04/22/19 11:04 177/77 H 04/22/19 10:53 98.6 F 89 22 H 216/89 H 04/22/19 07:24 98.1 F 71 18 142/61 H 04/22/19 04:00 98.0 F 69 16 135/63 Pulse Ox 04/22/19 11:51 04/22/19 11:12 04/22/19 11:04 04/22/19 10:53 96 04/22/19 07:24 95 04/22/19 04:00 Weight Admit Weight 201 lb Weight 208 lb 1.6 oz I&O: 04/21/19 04/22/19 04/23/19 06:59 06:59 06:59 Intake Total 960 Balance 960 Result Diagrams: 04/21/19 04:15 04/21/19 04:15 Additional Labs: Accuchecks 04/22/19 04/22/19 04/21/19 10:59 05:24 20:13 POC Glucose 139 H 144 H 233 H 04/21/19 04/21/19 16:52 10:08 POC Glucose 247 H 171 H Labs and MARs reviewed by me EKG Reviewed by me: Yes (Tele: NSR) Hospitalist ROS - Review of Systems Cardiovascular: denies: chest pain, palpitations, orthopnea, paroxysmal noc. dyspnea, edema, light headedness Gastrointestinal: denies: nausea, vomiting, abdominal pain, diarrhea, constipation, melena, hematochezia Musculoskeletal: reports: back pain - Medication Medications: Active Medications Generic Name Dose Route Start Last Admin Trade Name Freq PRN Reason Stop Dose Admin Acetaminophen 1,000 mg 04/15/19 15:32 04/21/19 01:29 Tylenol PO 1,000 mg Q6H PRN Administration Moderate to Severe Pain (6-10) Hydrocodone Bitart/Acetaminophen 1 tab 04/13/19 19:49 04/21/19 19:53 [place] 5/325 PO 1 tab Q4H PRN Administration Moderate Pain (4-6) Amlodipine Besylate 5 mg 04/15/19 09:00 04/22/19 11:04 Norvasc PO 5 mg DAILY HOMERO Administration Aspirin 81 mg 04/18/19 09:00 04/22/19 11:03 Ecotrin PO 81 mg DAILY HOMERO Administration Atorvastatin Calcium 20 mg 04/14/19 21:00 04/21/19 19:52 Lipitor PO 20 mg HS HOMERO Administration Bisacodyl 10 mg 04/16/19 12:32 04/18/19 09:20 Dulcolax PO 10 mg DAILYPRN PRN Administration Constipation Clonidine 0.1 mg 04/14/19 21:00 04/22/19 11:04 Catapres PO 0.1 mg BID HOMERO Administration Cyclobenzaprine HCl 10 mg 04/15/19 18:16 04/17/19 02:30 Flexeril PO 10 mg TIDPRN PRN Administration Muscle Spasm Famotidine 20 mg 04/16/19 09:00 04/22/19 11:04 Pepcid PO 20 mg DAILY HOMERO Administration Ferrous Sulfate 325 mg 04/17/19 21:00 04/22/19 11:04 Feosol PO 325 mg BID HOMERO Administration Gemfibrozil 600 mg 04/15/19 09:00 04/22/19 11:03 Lopid PO 600 mg DAILY HOMERO Administration Heparin Sodium (Porcine) 5,000 units 04/13/19 21:00 04/22/19 14:48 Heparin SC Not Given TID [facility] Piperacillin Sod/Tazobactam 100 mls @ 200 mls/hr 04/20/19 13:15 04/20/19 14: 06 Sod 0.75 gm/ Miscellaneous IVPB 100 mls Medication 1 each/ Sodium WILLCALL HOMREO Administration Chloride Oxacillin Sodium 2 gm/ Sodium 100 mls @ 200 mls/hr 04/20/19 21:00 04/22/19 14 :44 Chloride IVPB 100 mls Q4HR HOMERO Administration Insulin Human Isoph/Insulin Regular 15 units 04/20/19 07:30 04/22/19 11:01 Humulin 70/30 SC Not Given DAILY-[facility] Insulin Human Regular 0 units 04/15/19 21:47 04/18/19 12:18 Humulin R SC 2 unit .MODERATE SLIDING SC PRN Administration Moderate Correctional Scale Insulin Human Regular 0 units 04/15/19 21:47 04/15/19 23:04 Humulin R SC 3 unit .BEDTIME SLIDING SC PRN Administration Bedtime Correctional Scale Metoprolol Tartrate 25 mg 04/14/19 21:00 04/22/19 11:03 Lopressor PO 25 mg BID HOMERO Administration Morphine Sulfate 1 mg 04/17/19 14:43 04/22/19 09:46 Morphine SLOW IVP 1 mg Q6H PRN Administration Moderate to Severe Pain (6-10) Ondansetron HCl 4 mg 04/14/19 19:03 04/15/19 17:17 Zofran IVP 4 mg Q6H PRN Administration Nausea/Vomiting Polyethylene Glycol 17 gm 04/19/19 09:00 04/22/19 11:06 Miralax PO 17 gm DAILY HOMERO Administration Sertraline HCl 100 mg 04/17/19 21:00 04/22/19 11:04 Zoloft PO 100 mg BID HOMERO Administration Sodium Chloride 10 ml 04/19/19 21:00 04/22/19 11:20 Flush - Normal Saline IVF 10 ml Q12HR HOMERO Administration Tramadol HCl 50 mg 04/15/19 15:32 04/22/19 08:29 Ultram PO 50 mg Q4H PRN Administration Mild Pain - Exam General - other findings: Morbhidly obese Eye: anicteric sclera ENT: moist mucosa Neck: supple Heart: RRR Respiratory: CTAB Gastrointestinal: soft, non-tender Extremities: no clubbing Musculoskeletal: no muscle wasting Psychiatric: normal affect, normal behavior Hosp A/P (1) Bacteremia Code(s): R78.81 - BACTEREMIA Status: Acute (2) Discitis Code(s): M46.40 - DISCITIS, UNSPECIFIED, SITE UNSPECIFIED Status: Acute Qualifiers: Spinal region: thoracic Qualified Code(s): M46.44 - Discitis, unspecified, thoracic region (3) Osteomyelitis Code(s): M86.9 - OSTEOMYELITIS, UNSPECIFIED Status: Acute (4) Acute metabolic encephalopathy Code(s): G93.41 - METABOLIC ENCEPHALOPATHY Status: Acute (5) DM2 (diabetes mellitus, type 2) Status: Chronic (6) Dyslipidemia Code(s): E78.5 - HYPERLIPIDEMIA, UNSPECIFIED Status: Chronic (7) ESRD on hemodialysis Code(s): N18.6 - END STAGE RENAL DISEASE; Z99.2 - DEPENDENCE ON RENAL DIALYSIS Status: Chronic (8) Hypertension Code(s): I10 - ESSENTIAL (PRIMARY) HYPERTENSION Status: Chronic (9) Back pain Code(s): M54.9 - DORSALGIA, UNSPECIFIED Status: Resolved (10) Dialysis AV fistula infection Code(s): T82.7XXA - INFECT/INFLM REACT D/T OTH CARDI/VASC DEV/IMPLNT/GRFT, INIT Status: Ruled-out (11) Sepsis Code(s): A41.9 - SEPSIS, UNSPECIFIED ORGANISM Status: Resolved - Plan plan discussed w/ family, continue antibiotics, PT/OT Continue oxacillin. ANCLEMO - no vegetations. Dialysis per nephrology service. Mobilize pt. Transfer to medical floor. r
[2019-04-22] MEDS: Atorvastatin Calcium 20 MG TAB PO SCH (19:50)
[2019-04-22] MEDS: Insulin Regular 300 UNITS/3 ML VIAL SC PRN (20:57)
[2019-04-22] MEDS: Acetaminophen 500 MG TAB PO PRN (22:25)
[2019-04-23] MEDS: Oxacillin 2 GM in Sodium Chloride 0.9% 100 ML IVPB SCH ×6 (00:22→20:38)
[2019-04-23] MEDS: traMADol HCl 50 MG TAB PO PRN (04:04)
[2019-04-23] MEDS: HYDROcodone/Acetaminophen 5/325 mg Tablet PO PRN ×2 (07:19→14:09)
[2019-04-23] MEDS: HumuLIN 70/30 (300 UNITS/3 ML VIAL) SC SCH (07:21)
[2019-04-23] MEDS: cloNIDine 0.1 MG TAB PO SCH ×2 (09:15→20:35)
[2019-04-23] MEDS: Famotidine 20 MG TAB PO SCH (09:15)
[2019-04-23] MEDS: Metoprolol Tartrate 25 MG TAB PO SCH ×2 (09:16→20:36)
[2019-04-23] MEDS: Amlodipine 5 MG TAB PO SCH (09:16)
[2019-04-23] MEDS: Gemfibrozil 600 MG TAB PO SCH (09:16)
[2019-04-23] MEDS: Aspirin 81 mg Enteric Coated Tablet PO SCH (09:16)
[2019-04-23] MEDS: Ferrous Sulfate 325 MG TAB PO SCH ×2 (09:16→20:36)
[2019-04-23] MEDS: Heparin 5,000 UNITS/ML VIAL SC SCH ×3 (09:16→20:36)
[2019-04-23] MEDS: Polyethylene Glycol 3350 17 GM Packet PO SCH (09:17)
--- NOTE | 2019-04-23 10:43 | PRG ---
DATE OF SERVICE: 04/23/2019 SUBJECTIVE: This is a 59-year-old female, being seen for end-stage renal disease. The patient denied nausea, vomiting, or chest pain. OBJECTIVE: CONSTITUTIONAL: The patient is awake and alert. VITAL SIGNS: Pulse 64, breathing 16, and blood pressure 147/62. GENERAL APPEARANCE AND MENTAL STATUS: Fair. HEAD/NECK: Normocephalic. Atraumatic. EYES: EOMI. No deformity. EARS: Clear. No ulcers. NOSE: Intact. No lesions. MOUTH: Clear. No discharge. THROAT: Clear. No exudate. LUNGS: Clear. No crackles. CARDIAC: S1, S2. No rub. ABDOMEN: Benign. Bowel sounds positive. GENITALIA/RECTUM: Weeks absent. BACK/EXTREMITIES: Edema 0+. NEUROLOGICAL: Alert and motor intact. SKIN: LYMPHATICS: LABORATORY DATA: Labs showed hemoglobin 9.5. ASSESSMENT: 1. Stage 6 chronic kidney disease, stable. 2. Hypertensive, stable. 3. Anemia, stable. 4. Medication based on GFR appropriate. Job ID: [id number]
--- NOTE | 2019-04-23 11:24 | PDOC.HOSPP ---
- Subjective Encounter Date: 04/23/19 Encounter Time: 08:20 Subjective: Pt seen for followup re: bacteremia. Feels better. Back ache is better. - Objective Vital Signs & Weight: Vital Signs (12 hours) Temp Pulse Resp BP BP BP Pulse Ox 04/23/19 09:16 64 151/84 H 04/23/19 09:15 151/84 H 04/23/19 07:25 97 04/23/19 07:22 98.1 F 64 18 147/62 H 97 04/23/19 04:00 98.0 F 60 20 140/77 99 04/22/19 23:50 98.2 F 60 20 135/65 97 Weight Admit Weight 201 lb Weight 208 lb 1.6 oz I&O: 04/22/19 04/23/19 04/24/19 06:59 06:59 06:59 Intake Total 960 720 Output Total 1999 Balance 960 -1280 Result Diagrams: 04/21/19 04:15 04/21/19 04:15 Additional Labs: Accuchecks 04/23/19 04/22/19 04:51 10:59 POC Glucose 108 139 H Hospitalist ROS - Review of Systems Constitutional: denies: fever, chills, sweats, weakness, malaise Genitourinary: denies: dysuria, frequency, incontinence, hematuria, retention Musculoskeletal: reports: back pain - Medication Medications: Active Medications Generic Name Dose Route Start Last Admin Trade Name Freq PRN Reason Stop Dose Admin Acetaminophen 1,000 mg 04/15/19 15:32 04/22/19 22:25 Tylenol PO 1,000 mg Q6H PRN Administration Moderate to Severe Pain (6-10) Hydrocodone Bitart/Acetaminophen 1 tab 04/13/19 19:49 04/23/19 07:19 [place] 5/325 PO 1 tab Q4H PRN Administration Moderate Pain (4-6) Amlodipine Besylate 5 mg 04/15/19 09:00 04/23/19 09:16 Norvasc PO 5 mg DAILY HOMERO Administration Aspirin 81 mg 04/18/19 09:00 04/23/19 09:16 Ecotrin PO 81 mg DAILY HOMERO Administration Atorvastatin Calcium 20 mg 04/14/19 21:00 04/22/19 19:50 Lipitor PO 20 mg HS HOMERO Administration Bisacodyl 10 mg 04/16/19 12:32 04/18/19 09:20 Dulcolax PO 10 mg DAILYPRN PRN Administration Constipation Clonidine 0.1 mg 04/14/19 21:00 04/23/19 09:15 Catapres PO 0.1 mg BID HOMERO Administration Cyclobenzaprine HCl 10 mg 04/15/19 18:16 04/17/19 02:30 Flexeril PO 10 mg TIDPRN PRN Administration Muscle Spasm Famotidine 20 mg 04/16/19 09:00 04/23/19 09:15 Pepcid PO 20 mg DAILY HOMERO Administration Ferrous Sulfate 325 mg 04/17/19 21:00 04/23/19 09:16 Feosol PO 325 mg BID [facility] Administration Gemfibrozil 600 mg 04/15/19 09:00 04/23/19 09:16 Lopid PO 600 mg DAILY HOMERO Administration Heparin Sodium (Porcine) 5,000 units 04/13/19 21:00 04/23/19 09:16 Heparin SC 5,000 units TID [facility] Administration Piperacillin Sod/Tazobactam 100 mls @ 200 mls/hr 04/20/19 13:15 04/20/19 14: 06 Sod 0.75 gm/ Miscellaneous IVPB 100 mls Medication 1 each/ Sodium WILLCALL [facility] Administration Chloride Oxacillin Sodium 2 gm/ Sodium 100 mls @ 200 mls/hr 04/20/19 21:00 04/23/19 09 :21 Chloride IVPB 100 mls Q4HR HOMERO Administration Insulin Human Isoph/Insulin Regular 15 units 04/20/19 07:30 04/23/19 07:21 Humulin 70/30 SC Not Given DAILY-[facility] Insulin Human Regular 0 units 04/15/19 21:47 04/18/19 12:18 Humulin R SC 2 unit .MODERATE SLIDING SC PRN Administration Moderate Correctional Scale Insulin Human Regular 0 units 04/15/19 21:47 04/22/19 20:57 Humulin R SC 3 unit .BEDTIME SLIDING SC PRN Administration Bedtime Correctional Scale Metoprolol Tartrate 25 mg 04/14/19 21:00 04/23/19 09:16 Lopressor PO 25 mg BID [facility] Administration Morphine Sulfate 1 mg 04/17/19 14:43 04/22/19 09:46 Morphine SLOW IVP 1 mg Q6H PRN Administration Moderate to Severe Pain (6-10) Ondansetron HCl 4 mg 04/14/19 19:03 04/15/19 17:17 Zofran IVP 4 mg Q6H PRN Administration Nausea/Vomiting Polyethylene Glycol 17 gm 04/19/19 09:00 04/23/19 09:17 Miralax PO Not Given DAILY [facility] Sertraline HCl 100 mg 04/17/19 21:00 04/23/19 09:15 Zoloft PO 100 mg BID HOMERO Administration Sodium Chloride 10 ml 04/19/19 21:00 04/23/19 09:17 Flush - Normal Saline IVF 10 ml Q12HR [facility]OMERO Administration Tramadol HCl 50 mg 04/15/19 15:32 04/23/19 04:04 Ultram PO 50 mg Q4H PRN Administration Mild Pain - Exam General - other findings: Morbid obesity Eye: anicteric sclera ENT: moist mucosa Neck: supple, no JVD Heart: RRR, no rubs Respiratory: CTAB Gastrointestinal: soft, non-tender Extremities: no clubbing Psychiatric: normal affect, normal behavior Hosp A/P (1) Bacteremia Code(s): R78.81 - BACTEREMIA Status: Acute (2) Discitis Code(s): M46.40 - DISCITIS, UNSPECIFIED, SITE UNSPECIFIED Status: Acute Qualifiers: Spinal region: thoracic Qualified Code(s): M46.44 - Discitis, unspecified, thoracic region (3) Osteomyelitis Code(s): M86.9 - OSTEOMYELITIS, UNSPECIFIED Status: Acute (4) Acute metabolic encephalopathy Code(s): G93.41 - METABOLIC ENCEPHALOPATHY Status: Acute (5) DM2 (diabetes mellitus, type 2) Status: Chronic (6) Dyslipidemia Code(s): E78.5 - HYPERLIPIDEMIA, UNSPECIFIED Status: Chronic (7) ESRD on hemodialysis Code(s): N18.6 - END STAGE RENAL DISEASE; Z99.2 - DEPENDENCE ON RENAL DIALYSIS Status: Chronic (8) Hypertension Code(s): I10 - ESSENTIAL (PRIMARY) HYPERTENSION Status: Chronic (9) Back pain Code(s): M54.9 - DORSALGIA, UNSPECIFIED Status: Resolved (10) Dialysis AV fistula infection Code(s): T82.7XXA - INFECT/INFLM REACT D/T OTH CARDI/VASC DEV/IMPLNT/GRFT, INIT Status: Ruled-out (11) Sepsis Code(s): A41.9 - SEPSIS, UNSPECIFIED ORGANISM Status: Resolved - Plan plan discussed w/ family, continue antibiotics, out of bed/ambulate Continue oxacillin. Dialysis per nephrology service. Mobilize pt. r
[2019-04-23] MEDS: Sevelamer Carbonate 800 MG TAB PO SCH ×2 (12:30→16:31)
[2019-04-23] MEDS: Insulin Regular 300 UNITS/3 ML VIAL SC PRN (12:31)
--- NOTE | 2019-04-23 19:07 | PRG ---
DATE OF SERVICE: 04/23/2019 SUBJECTIVE: The patient is seen by the bedside. She is feeling better, looks better, at least the facial swelling is less. She has had no chest pain. The back pain is bothering her as previously noted. No abdominal pain. Her T-max is 98.4. Other vital signs are fairly normal. OBJECTIVE: GENERAL: Awake, alert, swelling in the right face, and bruising less. HEENT: The orbits are normal. LUNGS: Symmetric with clear breath sounds. EXTREMITIES: The left upper extremity surgical site appears okay with a bit of bruising. BACK: The back area is tender along the mid thoracic spine. ABDOMEN: Soft, not distended. LABORATORY DATA: White cell count is still high at 33.8, hemoglobin 9.5, platelets 384, and MSSA bacteremia noted. C difficile in stool was negative. The MRI again with thoracic spine process with diskitis, osteomyelitis also changes at T7-T8 and prevertebral phlegmon extending from T7-T8 about 3.4 cm. The patient is currently on oxacillin, to be continued for now. She still has a right groin triple-lumen catheter, which will be at risk for complications. ASSESSMENT AND DISCUSSION: End-stage renal disease, type-2 diabetes, hemodialysis with AV fistula with complications, which required placement of tunneled hemodialysis catheter and surgical interventions to fix the bleeding area T7 through T9 with some paravertebral phlegmon, but no compression of the spine. The patient is at risk for colonization of the catheters. Unfortunately, she has 2 catheters now. Our plan is to transition her to cefazolin 3 g after each dialysis and then additional levofloxacin 250 mg daily oral. The duration of therapy is estimated at the end of June 02. Weekly labs including CBC, CRP, CMP, and she will need a followup imaging study of the thoracic spine at the end of treatment as one of the endpoints. The other endpoint will be control of pain and the neutrophil count. Discharge planning; I would say whenever we have a further decrease in the white cell count, we can discharge her on again the regimen discussed above. Job ID: [id number] MTDD
[2019-04-23] MEDS: Atorvastatin Calcium 20 MG TAB PO SCH (20:36)
[2019-04-23] MEDS: Bisacodyl 5 MG TAB PO PRN (20:56)
[2019-04-24] MEDS: traMADol HCl 50 MG TAB PO PRN ×3 (00:52→10:38)
[2019-04-24] MEDS ORDERED: Polyethylene Glycol 3350 17 GM Packet PO SCH (01:15)
[2019-04-24] MEDS: Oxacillin 2 GM in Sodium Chloride 0.9% 100 ML IVPB SCH ×6 (01:24→21:00)
[2019-04-24] MEDS: HumuLIN 70/30 (300 UNITS/3 ML VIAL) SC SCH (08:00)
[2019-04-24] MEDS: cloNIDine 0.1 MG TAB PO SCH ×2 (09:04→21:01)
[2019-04-24] MEDS: Sevelamer Carbonate 800 MG TAB PO SCH ×3 (09:04→17:37)
[2019-04-24] MEDS: Heparin 5,000 UNITS/ML VIAL SC SCH ×3 (09:05→21:00)
[2019-04-24 09:56] LABS: Hemoglobin 8.9 g/dL (12.0-16.0); Mean Corpuscular HGB CONC 32.2 g/dL (32.0-36.0); Mean Corpuscular Hemoglobin 30.8 pg (27.0-31.0); Mean Corpuscular Volume 95.5 fL (78.0-98.0); Mean Platelet Volume 6.6 fL (7.4-10.4); Platelet Count 463 thou/uL (130-400); RBC Distribution Width 14.2 % (11.5-14.5); White Blood Cell (WBC) Count 26.9 thou/uL (4.8-10.8)
[2019-04-24 09:57] LABS: Vancomycin, Random 7.2 ug/mL (See Comment)
[2019-04-24 10:00] LABS: Anion Gap 13 mmol/L (10-20); BUN (Urea Nitrogen) 23 mg/dL (9.8-20.1); Calc. Creatinine Clearance 32 mL/min (70-130); Carbon Dioxide 29 mmol/L (22-29); Chloride 98 mmol/L (98-107); Estimated GFR-MDRD 17; Glucose 121 mg/dL (70-105); Potassium 3.7 mmol/L (3.5-5.1); Sodium 136 mmol/L (136-145)
[2019-04-24 10:19] LABS: Band 6 % (5-11); Eosinophils 2 % (0-10); Lymphocytes 7 % (21-51); MDiff Complete? YES; Metamyelocyte 6 % (0-0); Monocytes 2 % (0-10); Myelocyte 1 % (0-0); Neutrophil 76 % (42-75); Platelet Morphology Comment Appears Increased; Polychromasia SLIGHT = 2-3 cells (100X) (0-2/hpf); Target Cells SLIGHT = 2-5 cells (100X) (0-1/hpf)
--- NOTE | 2019-04-24 11:48 | PRG ---
DATE OF SERVICE: 04/24/2019 SUBJECTIVE: This is a 59-year-old female, being seen for end-stage renal disease. The patient denies any nausea, vomiting, or chest pain. OBJECTIVE: GENERAL: The patient is awake and alert. VITAL SIGNS: Afebrile, pulse 65, breathing 16, blood pressure 150/85. GENERAL APPEARANCE AND MENTAL STATUS: Fair. HEAD/NECK: Normocephalic. Atraumatic. EYES: EOMI. No deformity. EARS: Clear. No ulcers. NOSE: Intact. No lesions. MOUTH: Clear. No discharge. THROAT: Clear. No exudate. LUNGS: Clear. No crackles. CARDIAC: S1, S2. No rub. ABDOMEN: Benign. Bowel sounds positive. GENITALIA/RECTUM: Weeks absent. BACK/EXTREMITIES: Edema 0+. NEUROLOGICAL: Alert and motor intact. SKIN: LYMPHATICS: LABORATORY DATA: Reviewed. ASSESSMENT AND PLAN: 1. Stage 6 chronic kidney disease. Continue hemodialysis. 2. Hypertension, stable. 3. Anemia, stable. 4. Medication based on GFR, appropriate. Job ID: [id number]
[2019-04-24] MEDS: Ondansetron PF 4 MG/2 ML Vial IVP PRN (13:17)
[2019-04-24] MEDS: Gemfibrozil 600 MG TAB PO SCH (13:18)
[2019-04-24] MEDS: Amlodipine 5 MG TAB PO SCH (13:18)
[2019-04-24] MEDS: Metoprolol Tartrate 25 MG TAB PO SCH ×2 (13:19→21:01)
[2019-04-24] MEDS: Ferrous Sulfate 325 MG TAB PO SCH ×2 (13:19→21:01)
[2019-04-24] MEDS: Aspirin 81 mg Enteric Coated Tablet PO SCH (13:19)
[2019-04-24] MEDS: Famotidine 20 MG TAB PO SCH (13:20)
[2019-04-24] MEDS ORDERED: Heparin 10,000 UNITS/ 10 ML VIAL ONE (13:22)
[2019-04-24] MEDS: HYDROcodone/Acetaminophen 5/325 mg Tablet PO PRN (14:12)
--- NOTE | 2019-04-24 17:49 | PDOC.HOSPP ---
- Subjective Encounter Date: 04/24/19 Encounter Time: 09:40 Subjective: Pt seen for followup re: bacteremia. Feels better. - Objective Vital Signs & Weight: Vital Signs (12 hours) Temp Pulse Resp BP BP BP Pulse Ox 04/24/19 16:00 98.3 F 72 18 145/58 H 93 L 04/24/19 13:18 84 150/83 H 04/24/19 12:59 98.7 F 84 18 150/83 H 98 04/24/19 09:04 150/85 H 04/24/19 08:30 98.3 F 66 20 168/76 H 95 04/24/19 07:58 96 04/24/19 07:57 98.7 F 64 20 138/83 96 Weight Admit Weight 201 lb Weight 208 lb 1.6 oz I&O: 04/23/19 04/24/19 04/25/19 06:59 06:59 06:59 Intake Total 720 1080 Output Total 2000 Balance -1280 1080 Result Diagrams: 04/24/19 09:23 04/24/19 09:23 Additional Labs: Accuchecks 04/24/19 04/23/19 05:13 19:58 POC Glucose 148 H 146 H Labs and MARs reviewed by ut Hospitalist ROS - Review of Systems Constitutional: denies: fever, chills, sweats, weakness, malaise Cardiovascular: denies: chest pain, palpitations, orthopnea, paroxysmal noc. dyspnea, edema, light headedness Gastrointestinal: denies: nausea, vomiting, abdominal pain, diarrhea, constipation, melena, hematochezia Musculoskeletal: reports: back pain - Medication Medications: Active Medications Generic Name Dose Route Start Last Admin Trade Name Freq PRN Reason Stop Dose Admin Acetaminophen 1,000 mg 04/15/19 15:32 04/22/19 22:25 Tylenol PO 1,000 mg Q6H PRN Administration Moderate to Severe Pain (6-10) Hydrocodone Bitart/Acetaminophen 1 tab 04/24/19 12:27 04/24/19 14:12 [place] 5/325 PO 1 tab Q4H PRN Administration Moderate Pain (4-6) Amlodipine Besylate 5 mg 04/15/19 09:00 04/24/19 13:18 Norvasc PO 5 mg DAILY HOMERO Administration Aspirin 81 mg 04/18/19 09:00 04/24/19 13:19 Ecotrin PO 81 mg DAILY HOMERO Administration Atorvastatin Calcium 20 mg 04/14/19 21:00 04/23/19 20:36 Lipitor PO 20 mg HS HOMERO Administration Bisacodyl 10 mg 04/16/19 12:32 04/23/19 20:56 Dulcolax PO 10 mg DAILYPRN PRN Administration Constipation Clonidine 0.1 mg 04/14/19 21:00 04/24/19 09:04 Catapres PO Not Given BID HOMERO Cyclobenzaprine HCl 10 mg 04/15/19 18:16 04/17/19 02:30 Flexeril PO 10 mg TIDPRN PRN Administration Muscle Spasm Famotidine 20 mg 04/16/19 09:00 04/24/19 13:20 Pepcid PO 20 mg DAILY HOMERO Administration Ferrous Sulfate 325 mg 04/17/19 21:00 04/24/19 13:19 Feosol PO 325 mg BID HOMERO Administration Gemfibrozil 600 mg 04/15/19 09:00 04/24/19 13:18 Lopid PO 600 mg DAILY HOMERO Administration Heparin Sodium (Porcine) 5,000 units 04/13/19 21:00 04/24/19 14:16 Heparin SC 5,000 units TID HOMERO Administration Piperacillin Sod/Tazobactam 100 mls @ 200 mls/hr 04/20/19 13:15 04/20/19 14: 06 Sod 0.75 gm/ Miscellaneous IVPB 100 mls Medication 1 each/ Sodium WILLCALL HOMERO Administration Chloride Oxacillin Sodium 2 gm/ Sodium 100 mls @ 200 mls/hr 04/20/19 21:00 04/24/19 17 :37 Chloride IVPB 100 mls Q4HR HOMERO Administration Insulin Human Isoph/Insulin Regular 15 units 04/20/19 07:30 04/24/19 08:00 Humulin 70/30 SC Not Given DAILY-AC [facility] Insulin Human Regular 0 units 04/15/19 21:47 04/23/19 12:31 Humulin R SC 4 unit .MODERATE SLIDING SC PRN Administration Moderate Correctional Scale Insulin Human Regular 0 units 04/15/19 21:47 04/22/19 20:57 Humulin R SC 3 unit .BEDTIME SLIDING SC PRN Administration Bedtime Correctional Scale Metoprolol Tartrate 25 mg 04/14/19 21:00 04/24/19 13:19 Lopressor PO 25 mg BID HOMERO Administration Morphine Sulfate 1 mg 04/17/19 14:43 04/22/19 09:46 Morphine SLOW IVP 1 mg Q6H PRN Administration Moderate to Severe Pain (6-10) Ondansetron HCl 4 mg 04/14/19 19:03 04/24/19 13:17 Zofran IVP 4 mg Q6H PRN Administration Nausea/Vomiting Sertraline HCl 100 mg 04/17/19 21:00 04/24/19 13:19 Zoloft PO 100 mg BID HOMERO Administration Sevelamer Carbonate 1,600 mg 04/23/19 12:00 04/24/19 17:37 Renvela PO 1,600 mg TID-WM HOMERO Administration Sodium Chloride 10 ml 04/19/19 21:00 04/24/19 13:29 Flush - Normal Saline IVF 10 ml Q12HR HOMERO Administration Sodium Chloride 10 ml 04/19/19 19:26 04/23/19 16:32 Flush - Normal Saline IVF 10 ml PRN PRN Administration Saline Flush Tramadol HCl 50 mg 04/15/19 15:32 04/24/19 10:38 Ultram PO 50 mg Q4H PRN Administration Mild Pain - Exam General - other findings: Obese Eye: anicteric sclera ENT: moist mucosa Neck: supple Heart: RRR, no rubs Respiratory: CTAB Gastrointestinal: soft, non-tender Extremities: no clubbing Psychiatric: normal affect, normal behavior Hosp A/P (1) Bacteremia Code(s): R78.81 - BACTEREMIA Status: Acute (2) Discitis Code(s): M46.40 - DISCITIS, UNSPECIFIED, SITE UNSPECIFIED Status: Acute Qualifiers: Spinal region: thoracic Qualified Code(s): M46.44 - Discitis, unspecified, thoracic region (3) Osteomyelitis Code(s): M86.9 - OSTEOMYELITIS, UNSPECIFIED Status: Acute (4) Acute metabolic encephalopathy Code(s): G93.41 - METABOLIC ENCEPHALOPATHY Status: Acute (5) DM2 (diabetes mellitus, type 2) Status: Chronic (6) Dyslipidemia Code(s): E78.5 - HYPERLIPIDEMIA, UNSPECIFIED Status: Chronic (7) ESRD on hemodialysis Code(s): N18.6 - END STAGE RENAL DISEASE; Z99.2 - DEPENDENCE ON RENAL DIALYSIS Status: Chronic (8) Hypertension Code(s): I10 - ESSENTIAL (PRIMARY) HYPERTENSION Status: Chronic (9) Back pain Code(s): M54.9 - DORSALGIA, UNSPECIFIED Status: Resolved (10) Dialysis AV fistula infection Code(s): T82.7XXA - INFECT/INFLM REACT D/T OTH CARDI/VASC DEV/IMPLNT/GRFT, INIT Status: Ruled-out (11) Sepsis Code(s): A41.9 - SEPSIS, UNSPECIFIED ORGANISM Status: Resolved - Plan continue antibiotics, out of bed/ambulate Continue oxacillin. Dialysis today. Mobilize pt. Pt had fall during this hospitalization. No evidence of facial bone fracture on CT. Back pain improving. r
[2019-04-24] MEDS: Insulin Regular 300 UNITS/3 ML VIAL SC PRN (21:00)
[2019-04-24] MEDS: Atorvastatin Calcium 20 MG TAB PO SCH (21:01)
[2019-04-25] MEDS: Oxacillin 2 GM in Sodium Chloride 0.9% 100 ML IVPB SCH ×3 (00:34→08:40)
[2019-04-25] MEDS: Polyethylene Glycol 3350 17 GM Packet PO SCH (05:00)
[2019-04-25] MEDS: Insulin Regular 300 UNITS/3 ML VIAL SC PRN ×3 (05:02→20:23)
[2019-04-25] MEDS: traMADol HCl 50 MG TAB PO PRN ×2 (06:51→12:05)
[2019-04-25] MEDS: Sevelamer Carbonate 800 MG TAB PO SCH ×3 (08:36→16:38)
[2019-04-25] MEDS: Gemfibrozil 600 MG TAB PO SCH (08:36)
[2019-04-25] MEDS: Amlodipine 5 MG TAB PO SCH (08:37)
[2019-04-25] MEDS: Metoprolol Tartrate 25 MG TAB PO SCH ×2 (08:37→20:23)
[2019-04-25] MEDS: Famotidine 20 MG TAB PO SCH (08:37)
[2019-04-25] MEDS: Aspirin 81 mg Enteric Coated Tablet PO SCH (08:38)
[2019-04-25] MEDS: Ferrous Sulfate 325 MG TAB PO SCH ×2 (08:38→20:23)
[2019-04-25] MEDS: cloNIDine 0.1 MG TAB PO SCH ×2 (08:38→20:23)
[2019-04-25] MEDS: Heparin 5,000 UNITS/ML VIAL SC SCH ×3 (08:38→20:23)
[2019-04-25] MEDS: HumuLIN 70/30 (300 UNITS/3 ML VIAL) SC SCH (08:42)
[2019-04-25] MEDS ORDERED: CEFAZOLIN 3 GM in Sodium Chloride 0.9% 100 ML IVPB SCH (11:15)
--- NOTE | 2019-04-25 11:15 | PDOC.HOSPP ---
- Subjective Encounter Date: 04/25/19 Subjective: Patient feeling better.remains afebrile. - Objective Vital Signs & Weight: Vital Signs (12 hours) Temp Pulse Resp BP BP Pulse Ox 04/25/19 08:38 188/119 H 04/25/19 08:37 71 188/119 H 04/25/19 07:53 98.2 F 71 20 188/119 H 98 04/25/19 07:29 98 04/25/19 04:00 98.2 F 73 18 137/80 94 L 04/25/19 00:00 98.4 F 59 L 16 151/83 H 96 Weight Admit Weight 201 lb Weight 208 lb 1.6 oz I&O: 04/24/19 04/25/19 04/26/19 06:59 06:59 06:59 Intake Total 1080 1590 Output Total 2500 Balance 1080 -910 Result Diagrams: 04/24/19 09:23 04/24/19 09:23 Additional Labs: Accuchecks 04/25/19 04/24/19 04:46 20:02 POC Glucose 178 H 259 H Hospitalist ROS - Review of Systems Other: Feels weak though - Medication Medications: Active Medications Generic Name Dose Route Start Last Admin Trade Name Freq PRN Reason Stop Dose Admin Acetaminophen 1,000 mg 04/15/19 15:32 04/22/19 22:25 Tylenol PO 1,000 mg Q6H PRN Administration Moderate to Severe Pain (6-10) Hydrocodone Bitart/Acetaminophen 1 tab 04/24/19 12:27 04/24/19 14:[address] [place] [address] [place] 5/325 PO 1 tab Q4H PRN Administration Moderate Pain (4-6) Amlodipine Besylate 5 mg 04/15/19 09:00 04/25/19 08:37 Norvasc PO 5 mg DAILY HOMERO Administration Aspirin 81 mg 04/18/19 09:00 04/25/19 08:38 Ecotrin PO 81 mg DAILY HOMERO Administration Atorvastatin Calcium 20 mg 04/14/19 21:00 04/24/19 21:01 Lipitor PO 20 mg HS HOMERO Administration Bisacodyl 10 mg 04/16/19 12:32 04/23/19 20:56 Dulcolax PO 10 mg DAILYPRN PRN Administration Constipation Clonidine 0.1 mg 04/14/19 21:00 04/25/19 08:38 Catapres PO 0.1 mg BID HOMERO Administration Cyclobenzaprine HCl 10 mg 04/15/19 18:16 04/17/19 02:30 Flexeril PO 10 mg TIDPRN PRN Administration Muscle Spasm Famotidine 20 mg 04/16/19 09:00 04/25/19 08:37 Pepcid PO 20 mg DAILY HOMERO Administration Ferrous Sulfate 325 mg 04/17/19 21:00 04/25/19 08:38 Feosol PO 325 mg BID HOMERO Administration Gemfibrozil 600 mg 04/15/19 09:00 04/25/19 08:36 Lopid PO 600 mg DAILY HOMERO Administration Heparin Sodium (Porcine) 5,000 units 04/13/19 21:00 04/25/19 08:38 Heparin SC 5,000 units TID HOMERO Administration Insulin Human Isoph/Insulin Regular 15 units 04/20/19 07:30 04/25/19 08:42 Humulin 70/30 SC 15 unit DAILY-AC HOMERO Administration Insulin Human Regular 0 units 04/15/19 21:47 04/25/19 05:02 Humulin R SC 2 unit .MODERATE SLIDING SC PRN Administration Moderate Correctional Scale Insulin Human Regular 0 units 04/15/19 21:47 04/24/19 21:00 Humulin R SC 2 unit .BEDTIME SLIDING SC PRN Administration Bedtime Correctional Scale Metoprolol Tartrate 25 mg 04/14/19 21:00 04/25/19 08:37 Lopressor PO 25 mg BID HOMERO Administration Morphine Sulfate 1 mg 04/17/19 14:43 04/22/19 09:46 Morphine SLOW IVP 1 mg Q6H PRN Administration Moderate to Severe Pain (6-10) Ondansetron HCl 4 mg 04/14/19 19:03 04/24/19 13:17 Zofran IVP 4 mg Q6H PRN Administration Nausea/Vomiting Polyethylene Glycol 17 gm 04/25/19 09:00 04/25/19 05:00 Miralax PO 17 gm DAILY HOMERO Administration Sertraline HCl 100 mg 04/17/19 21:00 04/25/19 08:38 Zoloft PO 100 mg BID HOMERO Administration Sevelamer Carbonate 1,600 mg 04/23/19 12:00 04/25/19 08:36 Renvela PO 1,600 mg TID-WM HOMERO Administration Sodium Chloride 10 ml 04/19/19 21:00 04/25/19 08:45 Flush - Normal Saline IVF 10 ml Q12HR HOMERO Administration Sodium Chloride 10 ml 04/19/19 19:26 04/23/19 16:32 Flush - Normal Saline IVF 10 ml PRN PRN Administration Saline Flush Tramadol HCl 50 mg 04/15/19 15:32 04/25/19 06:51 Ultram PO 50 mg Q4H PRN Administration Mild Pain - Exam General Appearance: awake alert Eye: PERRL ENT - other findings: Normocephalic but right face trauma noted Neck: supple, symmetric, no JVD Heart: no murmur, no gallops Respiratory: CTAB, no wheezes, no rales Gastrointestinal: soft, non-tender, non-distended, normal bowel sounds Extremities: no cyanosis, no clubbing Skin: no rashes Neurological: no focal deficits, no new deficit, speech deficit Musculoskeletal: generalized weakness Psychiatric: normal affect, normal behavior Hosp A/P (1) Acute metabolic encephalopathy Code(s): G93.41 - METABOLIC ENCEPHALOPATHY Status: Acute (2) Bacteremia Code(s): R78.81 - BACTEREMIA Status: Acute Plan: MSSA BACTEREMIA ON CEFAZOLIN AND LEVAQUIN (3) Discitis Code(s): M46.40 - DISCITIS, UNSPECIFIED, SITE UNSPECIFIED Status: Acute Qualifiers: Spinal region: thoracic Qualified Code(s): M46.44 - Discitis, unspecified, thoracic region (4) Osteomyelitis Code(s): M86.9 - OSTEOMYELITIS, UNSPECIFIED Status: Acute (5) DM2 (diabetes mellitus, type 2) Status: Chronic Qualifiers: Diabetes mellitus adjunct faculty for medical terminology insulin use: unspecified adjunct faculty for medical terminology insulin use status (6) Back pain Code(s): M54.9 - DORSALGIA, UNSPECIFIED Status: Resolved (7) Sepsis Code(s): A41.9 - SEPSIS, UNSPECIFIED ORGANISM Status: Resolved (8) Dialysis AV fistula infection Code(s): T82.7XXA - INFECT/INFLM REACT D/T OTH CARDI/VASC DEV/IMPLNT/GRFT, INIT Status: Ruled-out (9) Diabetes mellitus type 2 with peripheral artery disease Code(s): E11.51 - TYPE 2 DIABETES W DIABETIC PERIPHERAL ANGIOPATH W/O GANGRENE Status: Chronic (10) Dyslipidemia Code(s): E78.5 - HYPERLIPIDEMIA, UNSPECIFIED Status: Chronic (11) ESRD on hemodialysis Code(s): N18.6 - END STAGE RENAL DISEASE; Z99.2 - DEPENDENCE ON RENAL DIALYSIS Status: Chronic (12) Hypertension Code(s): I10 - ESSENTIAL (PRIMARY) HYPERTENSION Status: Chronic - Plan old records reviewed/req, plan discussed w/ family, continue antibiotics, out of bed/ambulate 1.I will d/c right groin cathter for risk of infections. 2.order for new pheripheral line. 3.Star cefazolin 3 gm after each HD and oral levaquin 250 mg daily till june 02. 4.Discharge plan once leukocytosis resolves with care plan for fall precautions.
--- NOTE | 2019-04-25 13:33 | PRG ---
DATE OF SERVICE: 04/25/2019 SUBJECTIVE: A 59-year-old female being seen for end-stage renal disease. The patient denied nausea, vomiting or chest pain. OBJECTIVE: See above. GENERAL: The patient is awake and alert. VITAL SIGNS: Pulse 75, breathing 16, blood pressure was 156/ . GENERAL APPEARANCE AND MENTAL STATUS: Fair. HEAD/NECK: Normocephalic. Atraumatic. EYES: EOMI. No deformity. EARS: Clear. No ulcers. NOSE: Intact. No lesions. MOUTH: Clear. No discharge. THROAT: Clear. No exudate. LUNGS: Clear. No crackles. CARDIAC: S1, S2. No rub. ABDOMEN: Benign. Bowel sounds positive. GENITALIA/RECTUM: Weeks absent. BACK/EXTREMITIES: Edema 0+. NEUROLOGICAL: Alert and motor intact. SKIN: LYMPHATICS: LABS: Reviewed. ASSESSMENT AND PLAN: Stage 6 chronic kidney disease stable, hypertensive, based on GFR appropriate. Job ID: [id number]
[2019-04-25] MEDS ORDERED: hydrALAZINE 20 MG/ML VIAL SLOW IVP PRN (16:07)
[2019-04-25] MEDS: HYDROcodone/Acetaminophen 5/325 mg Tablet PO PRN (18:51)
[2019-04-25] MEDS: Atorvastatin Calcium 20 MG TAB PO SCH (20:23)
[2019-04-26] MEDS: HYDROcodone/Acetaminophen 5/325 mg Tablet PO PRN ×4 (00:40→21:35)
[2019-04-26] MEDS: Morphine 2 MG/ML SYRINGE SLOW IVP PRN (06:18)
[2019-04-26 07:01] LABS: ALT (SGPT) Less than 7 U/L (8-55); AST (SGOT) 16 U/L (5-34); Alkaline Phosphatase 126 U/L (40-110); Anion Gap 16 mmol/L (10-20); BUN (Urea Nitrogen) 29 mg/dL (9.8-20.1); Bilirubin, Total 0.3 mg/dL (0.2-1.2); Calc. Creatinine Clearance 23 mL/min (70-130); Calcium 9.2 mg/dL (7.8-10.44); Carbon Dioxide 26 mmol/L (22-29); Chloride 94 mmol/L (98-107); Estimated GFR-MDRD 11; Globulin 3.9 g/dL (2.4-3.5); Glucose 136 mg/dL (70-105); Potassium 3.5 mmol/L (3.5-5.1); Protein, Total 6.9 g/dL (6.0-8.3); Sodium 132 mmol/L (136-145)
[2019-04-26 08:12] LABS: Band 4 % (5-11); Eosinophils 1 % (0-10); Hemoglobin 9.2 g/dL (12.0-16.0); Large Platelets SLIGHT; Lymphocytes 6 % (21-51); MDiff Complete? YES; Mean Corpuscular HGB CONC 33.4 g/dL (32.0-36.0); Mean Corpuscular Hemoglobin 32.5 pg (27.0-31.0); Mean Corpuscular Volume 97.3 fL (78.0-98.0); Monocytes 9 % (0-10); Neutrophil 80 % (42-75); Platelet Count 486 thou/uL (130-400); Platelet Morphology Comment Appears Increased; Poikilocytosis SLIGHT = 6-15 cells (100X) (0-5/hpf); RBC Distribution Width 14.4 % (11.5-14.5); Red Blood Cell (RBC) Count 2.82 mill/uL (4.20-5.40); Target Cells SLIGHT = 2-5 cells (100X) (0-1/hpf); White Blood Cell (WBC) Count 25.6 thou/uL (4.8-10.8)
[2019-04-26] MEDS: Gemfibrozil 600 MG TAB PO SCH (09:03)
[2019-04-26] MEDS: Metoprolol Tartrate 25 MG TAB PO SCH ×2 (09:03→20:41)
[2019-04-26] MEDS: Polyethylene Glycol 3350 17 GM Packet PO SCH (09:03)
[2019-04-26] MEDS: Sevelamer Carbonate 800 MG TAB PO SCH ×3 (09:03→18:08)
[2019-04-26] MEDS: Aspirin 81 mg Enteric Coated Tablet PO SCH (09:04)
[2019-04-26] MEDS: Heparin 5,000 UNITS/ML VIAL SC SCH ×3 (09:04→20:41)
[2019-04-26] MEDS: Famotidine 20 MG TAB PO SCH (09:04)
[2019-04-26] MEDS: Amlodipine 5 MG TAB PO SCH (09:04)
[2019-04-26] MEDS: Ferrous Sulfate 325 MG TAB PO SCH ×2 (09:04→20:41)
[2019-04-26] MEDS: cloNIDine 0.1 MG TAB PO SCH ×2 (09:04→20:41)
[2019-04-26] MEDS: HumuLIN 70/30 (300 UNITS/3 ML VIAL) SC SCH (09:05)
--- NOTE | 2019-04-26 10:40 | PDOC.HOSPP ---
- Subjective Encounter Date: 04/26/19 Subjective: minimal ambulation from bed to chair,afebrile. - Objective Vital Signs & Weight: Vital Signs (12 hours) Temp Pulse Resp BP BP Pulse Ox 04/26/19 09:04 70 171/104 H 04/26/19 09:00 100 04/26/19 07:33 97.9 F 70 20 171/104 H 100 04/26/19 00:00 98.5 F 61 16 145/80 H 98 Weight Admit Weight 201 lb Weight 208 lb 1.6 oz I&O: 04/25/19 04/26/19 04/27/19 06:59 06:59 06:59 Intake Total 1590 820 Output Total 2500 Balance -910 820 Result Diagrams: 04/26/19 05:45 04/26/19 05:45 Additional Labs: Accuchecks 04/26/19 04/26/19 04/25/19 05:02 00:11 19:43 POC Glucose 166 H 179 H 242 H 04/25/19 04/25/19 04/24/19 15:57 11:54 16:47 POC Glucose 113 H 219 H 191 H 04/24/19 13:01 POC Glucose 118 H Hospitalist ROS - Review of Systems Constitutional: reports: weakness Other: Generalized body aches - Medication Medications: Active Medications Generic Name Dose Route Start Last Admin Trade Name Freq PRN Reason Stop Dose Admin Acetaminophen 1,000 mg 04/15/19 15:32 04/22/19 22:25 Tylenol PO 1,000 mg Q6H PRN Administration Moderate to Severe Pain (6-10) Hydrocodone Bitart/Acetaminophen 1 tab 04/24/19 12:27 04/26/19 09:02 [place] 5/325 PO 1 tab Q4H PRN Administration Moderate Pain (4-6) Amlodipine Besylate 5 mg 04/15/19 09:00 04/26/19 09:04 Norvasc PO 5 mg DAILY HOMERO Administration Aspirin 81 mg 04/18/19 09:00 04/26/19 09:04 Ecotrin PO 81 mg DAILY HOMERO Administration Atorvastatin Calcium 20 mg 04/14/19 21:00 04/25/19 20:23 Lipitor PO 20 mg HS HOMERO Administration Bisacodyl 10 mg 04/16/19 12:32 04/23/19 20:56 Dulcolax PO 10 mg DAILYPRN PRN Administration Constipation Clonidine 0.1 mg 04/14/19 21:00 04/26/19 09:04 Catapres PO 0.1 mg BID HOMERO Administration Cyclobenzaprine HCl 10 mg 04/15/19 18:16 04/17/19 02:30 Flexeril PO 10 mg TIDPRN PRN Administration Muscle Spasm Famotidine 20 mg 04/16/19 09:00 04/26/19 09:04 Pepcid PO 20 mg DAILY HOMERO Administration Ferrous Sulfate 325 mg 04/17/19 21:00 04/26/19 09:04 Feosol PO 325 mg BID HOMERO Administration Gemfibrozil 600 mg 04/15/19 09:00 04/26/19 09:03 Lopid PO 600 mg DAILY HOMERO Administration Heparin Sodium (Porcine) 5,000 units 04/13/19 21:00 04/26/19 09:04 Heparin SC 5,000 units TID HOMERO Administration Hydralazine HCl 10 mg 04/25/19 16:07 04/25/19 16:39 Apresoline SLOW IVP 10 mg Q4H PRN Administration Hypertension Insulin Human Isoph/Insulin Regular 15 units 04/20/19 07:30 04/26/19 09:05 Humulin 70/30 SC 15 unit DAILY-AC HOMERO Administration Insulin Human Regular 0 units 04/15/19 21:47 04/25/19 12:10 Humulin R SC 4 unit .MODERATE SLIDING SC PRN Administration Moderate Correctional Scale Insulin Human Regular 0 units 04/15/19 21:47 04/25/19 20:23 Humulin R SC 2 unit .BEDTIME SLIDING SC PRN Administration Bedtime Correctional Scale Levofloxacin 250 mg 04/25/19 14:00 04/25/19 14:05 Levaquin PO 250 mg 1400 [facility] Administration Metoprolol Tartrate 25 mg 04/14/19 21:00 04/26/19 09:03 Lopressor PO 25 mg BID HOMERO Administration Morphine Sulfate 1 mg 04/17/19 14:43 04/26/19 06:18 Morphine SLOW IVP 1 mg Q6H PRN Administration Moderate to Severe Pain (6-10) Ondansetron HCl 4 mg 04/14/19 19:03 04/24/19 13:17 Zofran IVP 4 mg Q6H PRN Administration Nausea/Vomiting Polyethylene Glycol 17 gm 04/25/19 09:00 04/26/19 09:03 Miralax PO 17 gm DAILY HOMERO Administration Sertraline HCl 100 mg 04/17/19 21:00 04/26/19 09:04 Zoloft PO 100 mg BID HOMERO Administration Sevelamer Carbonate 1,600 mg 04/23/19 12:00 04/26/19 09:03 Renvela PO 1,600 mg TID-WM HOMERO Administration Sodium Chloride 10 ml 04/19/19 21:00 04/26/19 09:08 Flush - Normal Saline IVF 10 ml Q12HR HOMERO Administration Sodium Chloride 10 ml 04/19/19 19:26 04/25/19 16:41 Flush - Normal Saline IVF 10 ml PRN PRN Administration Saline Flush - Exam Eye: PERRL ENT - other findings: right face blunt fall trauma Neck: supple, symmetric, no JVD, no thyromegaly, no lymphadenopathy, no carotid bruit Heart: RRR, no murmur, no gallops, no rubs, normal peripheral pulses Respiratory: CTAB, no wheezes, no rales, no ronchi, normal chest expansion, no tachypnea, normal percussion Gastrointestinal: soft, non-tender, non-distended, normal bowel sounds, no palpable masses, no hepatomegaly, no splenomegaly, no bruit Extremities: no cyanosis, no clubbing, no edema Skin: no rashes Neurological: cranial nerve grossly intact, normal sensation to touch, no weakness, no focal deficits, no new deficit Psychiatric: normal affect, normal behavior, A&O x 3 Hosp A/P (1) Acute metabolic encephalopathy Code(s): G93.41 - METABOLIC ENCEPHALOPATHY Status: Resolved (2) Bacteremia Code(s): R78.81 - BACTEREMIA Status: Acute (3) Discitis Code(s): M46.40 - DISCITIS, UNSPECIFIED, SITE UNSPECIFIED Status: Acute Qualifiers: Spinal region: thoracic Qualified Code(s): M46.44 - Discitis, unspecified, thoracic region (4) Osteomyelitis Code(s): M86.9 - OSTEOMYELITIS, UNSPECIFIED Status: Acute (5) DM2 (diabetes mellitus, type 2) Status: Chronic Qualifiers: Diabetes mellitus manager terminal insulin use: unspecified manager terminal insulin use status (6) Back pain Code(s): M54.9 - DORSALGIA, UNSPECIFIED Status: Acute Qualifiers: Back pain location: low back pain (7) Sepsis Code(s): A41.9 - SEPSIS, UNSPECIFIED ORGANISM Status: Resolved (8) Dialysis AV fistula infection Code(s): T82.7XXA - INFECT/INFLM REACT D/T OTH CARDI/VASC DEV/IMPLNT/GRFT, INIT Status: Ruled-out (9) Diabetes mellitus type 2 with peripheral artery disease Code(s): E11.51 - TYPE 2 DIABETES W DIABETIC PERIPHERAL ANGIOPATH W/O GANGRENE Status: Chronic (10) Dyslipidemia Code(s): E78.5 - HYPERLIPIDEMIA, UNSPECIFIED Status: Chronic (11) ESRD on hemodialysis Code(s): N18.6 - END STAGE RENAL DISEASE; Z99.2 - DEPENDENCE ON RENAL DIALYSIS Status: Chronic (12) Hypertension Code(s): I10 - ESSENTIAL (PRIMARY) HYPERTENSION Status: Chronic - Plan old records reviewed/req, plan discussed w/ family, PT/OT 1.I will d/c right groin cathter for risk of infections. 2.order for new pheripheral line. 3.Star cefazolin 3 gm after each HD and oral levaquin 250 mg daily till june 02. 4.Discharge plan once leukocytosis resolves with care plan for fall precautions.Will renew tramadol.
[2019-04-26] MEDS ORDERED: Iopamidol-370 76% 500 ML 1 ML ONE (12:14)
[2019-04-26] MEDS: Insulin Regular 300 UNITS/3 ML VIAL SC PRN (13:43)
--- NOTE | 2019-04-26 14:33 | PRG ---
DATE OF SERVICE: 04/26/2019 SUBJECTIVE: There is still the same intensity of pain in the back, and now, she is having abdominal pain. The abdominal pain could be radiculopathic as noted below. She has no diarrhea. Actually, she is constipated, having to take MiraLax. No genitourinary symptoms. The facial ecchymosis is getting better. OBJECTIVE: VITAL SIGNS: Afebrile throughout. BP 170/100, pulse 62, respirations 18, O2 saturation 96. GENERAL: She is awake, alert, and oriented. HEENT: The bruising in the right side of the face is improving. Swelling is improving. Eye movements are normal. LUNGS: Clear to auscultation and percussion. HEART: S1 and S2 regular rate. EXTREMITIES: The catheter in the leg has been removed. She has now this just only the tunneled catheter in the right IJ. LABORATORY DATA: White cell count is at 25.6, hemoglobin is 9.2, platelets are 486, 80% neutrophils. Chemistry is not changed. No imaging studies to review. ASSESSMENT AND DISCUSSION: End-stage renal disease, type 2 diabetes, hemodialysis with AV fistula with complications and then placement of tunneled hemodialysis catheter and then T7 seven through T9 spinal infection, but no compression of the spine. Now, abdominal pain, which could be radiculopathic, but could be something different since she does have tenderness particularly in the upper segments. She is currently transitioned to cefazolin and oral levofloxacin. We will go ahead and order a CT abdomen and pelvis with contrast. May need to repeat the MRI before discharge planning in view of the critical area of involvement and persistence of pain. Job ID: [id number]
--- NOTE | 2019-04-26 14:38 | PRG ---
DATE OF SERVICE: 04/26/2019 SUBJECTIVE: This is a 59-year-old female, being seen for end-stage renal disease. The patient denies any nausea, vomiting, or chest pain. OBJECTIVE: GENERAL: The patient is awake and alert. VITAL SIGNS: Pulse 75, breathing 16, blood pressure . GENERAL APPEARANCE AND MENTAL STATUS: Fair. HEAD/NECK: Normocephalic. Atraumatic. EYES: EOMI. No deformity. EARS: Clear. No ulcers. NOSE: Intact. No lesions. MOUTH: Clear. No discharge. THROAT: Clear. No exudate. LUNGS: Clear. No crackles. CARDIAC: S1, S2. No rub. ABDOMEN: Benign. Bowel sounds positive. GENITALIA/RECTUM: Weeks absent. BACK/EXTREMITIES: Edema 0+. NEUROLOGICAL: Alert and motor intact. SKIN: LYMPHATICS: LABORATORY DATA: Reviewed. ASSESSMENT AND PLAN: 1. Stage chronic kidney disease, stable. 2. Hypertension, stable. 3. Anemia, stable. 4. Medication based on GFR appropriate. Job ID: [id number]
--- NOTE | 2019-04-26 17:14 | CT ---
CT Abdomen Pelvis W Con History: Bacteremia. Abnormal pain with tenderness. Comparison: CT abdomen and pelvis April 20, 2019. MRI thoracic spine April 21, 2019 Findings: Small right layering pleural effusion. No significant pericardial fluid. Incomplete evaluat ion of a nodule along the right minor fissure. Liver, spleen, adrenal glands are unremarkable. No hydronephrosis. The kidneys are small. No dilated loops of large or small bowel. Similar appearance of the paravertebral soft tissue edema T 6-T9 with elevation of the aorta. Enlarging endplate erosion at T8. Impression: Similar appearance of the prevertebral edema/phlegmonous change from T6-T9 with enlarging inferior en dplate erosion of T8 likely sequelae of the patient's discitis osteomyelitis.
[2019-04-26] MEDS: traMADol HCl 50 MG TAB PO PRN (19:13)
[2019-04-26] MEDS: Atorvastatin Calcium 20 MG TAB PO SCH (20:41)
[2019-04-27] MEDS: HYDROcodone/Acetaminophen 5/325 mg Tablet PO PRN ×5 (01:35→23:05)
[2019-04-27] MEDS: HumuLIN 70/30 (300 UNITS/3 ML VIAL) SC SCH (07:08)
[2019-04-27] MEDS: Heparin 5,000 UNITS/ML VIAL SC SCH ×3 (09:38→20:56)
[2019-04-27] MEDS: Sevelamer Carbonate 800 MG TAB PO SCH ×3 (09:38→17:42)
--- NOTE | 2019-04-27 10:05 | PRG ---
DATE OF SERVICE: 04/27/2019 SUBJECTIVE: This is a 59-year-old female, being seen for end-stage renal disease. The patient denies any nausea, vomiting, or chest pain. OBJECTIVE: CONSTITUTIONAL: The patient is awake and alert. VITAL SIGNS: Pulse 75, breathing 16, and blood pressure 165/74. GENERAL APPEARANCE AND MENTAL STATUS: Fair. HEAD/NECK: Normocephalic. Atraumatic. EYES: EOMI. No deformity. EARS: Clear. No ulcers. NOSE: Intact. No lesions. MOUTH: Clear. No discharge. THROAT: Clear. No exudate. LUNGS: Clear. No crackles. CARDIAC: S1, S2. No rub. ABDOMEN: Benign. Bowel sounds positive. GENITALIA/RECTUM: Weeks absent. BACK/EXTREMITIES: Edema 0+. NEUROLOGICAL: Alert and motor intact. SKIN: LYMPHATICS: LABORATORY DATA: Reviewed. ASSESSMENT AND PLAN: 1. Stage 6 chronic kidney disease on dialysis. 2. Hypertension, stable. 3. Anemia, stable. 4. Medication based on GFR appropriate. Job ID: [id number]
[2019-04-27] MEDS: cloNIDine 0.1 MG TAB PO SCH ×2 (12:40→20:55)
[2019-04-27] MEDS: Aspirin 81 mg Enteric Coated Tablet PO SCH (12:40)
[2019-04-27] MEDS: Famotidine 20 MG TAB PO SCH (12:40)
[2019-04-27] MEDS: Metoprolol Tartrate 25 MG TAB PO SCH ×2 (12:41→20:56)
[2019-04-27] MEDS: Ferrous Sulfate 325 MG TAB PO SCH ×2 (12:41→20:56)
[2019-04-27] MEDS: Gemfibrozil 600 MG TAB PO SCH (12:41)
[2019-04-27] MEDS: Amlodipine 5 MG TAB PO SCH (12:41)
[2019-04-27] MEDS: Polyethylene Glycol 3350 17 GM Packet PO SCH (12:45)
--- NOTE | 2019-04-27 12:54 | PDOC.HOSPP ---
- Subjective Encounter Date: 04/27/19 Subjective: pain abdomen likley sequelie from radiculopathy - Objective Vital Signs & Weight: Vital Signs (12 hours) Temp Pulse Resp BP BP Pulse Ox 04/27/19 12:41 84 04/27/19 12:40 166/84 H 04/27/19 12:36 98.4 F 84 18 102/64 99 04/27/19 07:46 97 04/27/19 07:21 98.5 F 68 18 154/75 H 97 04/27/19 04:44 98.1 F 76 16 168/83 H 97 Weight Admit Weight 201 lb Weight 208 lb 1.6 oz I&O: 04/26/19 04/27/19 04/28/19 06:59 06:59 06:59 Intake Total 820 1250 Balance 820 1250 Result Diagrams: 04/26/19 05:45 04/26/19 05:45 Additional Labs: Accuchecks 04/27/19 04/26/19 04/26/19 04:47 19:27 16:19 POC Glucose 186 H 115 H 118 H Hospitalist ROS - Review of Systems Gastrointestinal: reports: abdominal pain Other: back pain and pain abdomen - Medication Medications: Active Medications Generic Name Dose Route Start Last Admin Trade Name Freq PRN Reason Stop Dose Admin Acetaminophen 1,000 mg 04/15/19 15:32 04/22/19 22:25 Tylenol PO 1,000 mg Q6H PRN Administration Moderate to Severe Pain (6-10) Hydrocodone Bitart/Acetaminophen 1 tab 04/24/19 12:27 04/27/19 09:36 [place] 5/325 PO 1 tab Q4H PRN Administration Moderate Pain (4-6) Amlodipine Besylate 5 mg 04/15/19 09:00 04/27/19 12:41 Norvasc PO Not Given DAILY H[facility] Aspirin 81 mg 04/18/19 09:00 04/27/19 12:40 Ecotrin PO 81 mg DAILY HOMERO Administration Atorvastatin Calcium 20 mg 04/14/19 21:00 04/26/19 20:41 Lipitor PO 20 mg HS HOMERO Administration Bisacodyl 10 mg 04/16/19 12:32 04/23/19 20:56 Dulcolax PO 10 mg DAILYPRN PRN Administration Constipation Clonidine 0.1 mg 04/14/19 21:00 04/27/19 12:40 Catapres PO Not Given BID [facility] Cyclobenzaprine HCl 10 mg 04/15/19 18:16 04/17/19 02:30 Flexeril PO 10 mg TIDPRN PRN Administration Muscle Spasm Famotidine 20 mg 04/16/19 09:00 04/27/19 12:40 Pepcid PO 20 mg DAILY [facility] Administration Ferrous Sulfate 325 mg 04/17/19 21:00 04/27/19 12:41 Feosol PO 325 mg BID [facility] Administration Gemfibrozil 600 mg 04/15/19 09:00 04/27/19 12:41 Lopid PO 600 mg DAILY [facility] Administration Heparin Sodium (Porcine) 5,000 units 04/13/19 21:00 04/27/19 09:38 Heparin SC Not Given TID [facility] Hydralazine HCl 10 mg 04/25/19 16:07 04/25/19 16:39 Apresoline SLOW IVP 10 mg Q4H PRN Administration Hypertension Insulin Human Isoph/Insulin Regular 15 units 04/20/19 07:30 04/27/19 07:08 Humulin 70/30 SC Not Given DAILY-[facility] Insulin Human Regular 0 units 04/15/19 21:47 04/26/19 13:43 Humulin R SC 2 unit .MODERATE SLIDING SC PRN Administration Moderate Correctional Scale Insulin Human Regular 0 units 04/15/19 21:47 04/25/19 20:23 Humulin R SC 2 unit .BEDTIME SLIDING SC PRN Administration Bedtime Correctional Scale Levofloxacin 250 mg 04/25/19 14:00 04/26/19 14:40 Levaquin PO 250 mg 1400 [facility] Administration Metoprolol Tartrate 25 mg 04/14/19 21:00 04/27/19 12:41 Lopressor PO 25 mg BID [facility] Administration Morphine Sulfate 1 mg 04/17/19 14:43 04/26/19 06:18 Morphine SLOW IVP 1 mg Q6H PRN Administration Moderate to Severe Pain (6-10) Ondansetron HCl 4 mg 04/14/19 19:03 04/24/19 13:17 Zofran IVP 4 mg Q6H PRN Administration Nausea/Vomiting Polyethylene Glycol 17 gm 04/25/19 09:00 04/27/19 12:45 Miralax PO Not Given DAILY [facility] Sertraline HCl 100 mg 04/17/19 21:00 04/27/19 12:41 Zoloft PO 100 mg BID [facility] Administration Sevelamer Carbonate 1,600 mg 04/23/19 12:00 04/27/19 12:40 Renvela PO 1,600 mg TID-WM [facility]OMERO Administration Sodium Chloride 10 ml 04/19/19 21:00 04/27/19 12:42 Flush - Normal Saline IVF 10 ml Q12HR HOMERO Administration Sodium Chloride 10 ml 04/19/19 19:26 04/25/19 16:41 Flush - Normal Saline IVF 10 ml PRN PRN Administration Saline Flush Tramadol HCl 50 mg 04/26/19 09:08 04/26/19 19:13 Ultram PO 50 mg Q6H PRN Administration Breakthrough Pain - Exam Eye: PERRL, anicteric sclera ENT: no oropharyngeal lesions, moist mucosa Neck: supple, symmetric, no JVD, no thyromegaly, no lymphadenopathy, no carotid bruit Heart: RRR, no murmur, no gallops, no rubs, normal peripheral pulses Respiratory: CTAB, no wheezes, no rales, no ronchi, normal chest expansion, no tachypnea, normal percussion Gastrointestinal: soft, non-tender, non-distended, normal bowel sounds, no palpable masses, no hepatomegaly, no splenomegaly, no bruit Extremities: no cyanosis, no clubbing Skin: no rashes Neurological: normal sensation to touch, no focal deficits, no new deficit Musculoskeletal: no muscle wasting Psychiatric: A&O x 3, oriented to person, oriented to place, oriented to time Hosp A/P (1) Acute metabolic encephalopathy Code(s): G93.41 - METABOLIC ENCEPHALOPATHY Status: Resolved (2) Bacteremia Code(s): R78.81 - BACTEREMIA Status: Acute Plan: On cefazolin 3 gm and oral levaquin likely till june 02 2019. 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 insulin use status (6) Back pain Code(s): M54.9 - DORSALGIA, UNSPECIFIED Status: Acute Qualifiers: Back pain location: low back pain (7) Sepsis Code(s): A41.9 - SEPSIS, UNSPECIFIED ORGANISM Status: Resolved (8) Dialysis AV fistula infection Code(s): T82.7XXA - INFECT/INFLM REACT D/T OTH CARDI/VASC DEV/IMPLNT/GRFT, INIT Status: Ruled-out (9) Diabetes mellitus type 2 with peripheral artery disease Code(s): E11.51 - TYPE 2 DIABETES W DIABETIC PERIPHERAL ANGIOPATH W/O GANGRENE Status: Chronic (10) Dyslipidemia Code(s): E78.5 - HYPERLIPIDEMIA, UNSPECIFIED Status: Chronic (11) ESRD on hemodialysis Code(s): N18.6 - END STAGE RENAL DISEASE; Z99.2 - DEPENDENCE ON RENAL DIALYSIS Status: Chronic Plan: plan of care per Nephrology (12) Hypertension Code(s): I10 - ESSENTIAL (PRIMARY) HYPERTENSION Status: Chronic - Plan old records reviewed/req, plan discussed w/ family, PT/OT 1.I will d/c right groin cathter for risk of infections. 2.order for new pheripheral line. 3.Star cefazolin 3 gm after each HD and oral levaquin 250 mg daily till june 02. 4.Discharge plan once leukocytosis resolves with care plan for fall precautions.Will renew tramadol. 5.ct abdomen and pelvis reviwed with likely T6-T9 osteomyelitis.
[2019-04-27] MEDS ORDERED: Heparin 10,000 UNITS/ 10 ML VIAL ONE (13:20)
[2019-04-27] MEDS: CEFAZOLIN 3 GM in Sodium Chloride 0.9% 100 ML IVPB SCH (13:23)
[2019-04-27] MEDS: Atorvastatin Calcium 20 MG TAB PO SCH (20:56)
[2019-04-28] MEDS: HYDROcodone/Acetaminophen 5/325 mg Tablet PO PRN ×3 (03:10→21:30)
[2019-04-28] MEDS: Sevelamer Carbonate 800 MG TAB PO SCH ×3 (08:21→17:25)
[2019-04-28] MEDS: Ferrous Sulfate 325 MG TAB PO SCH ×2 (08:21→20:28)
[2019-04-28] MEDS: Polyethylene Glycol 3350 17 GM Packet PO SCH (08:21)
[2019-04-28] MEDS: Aspirin 81 mg Enteric Coated Tablet PO SCH (08:22)
[2019-04-28] MEDS: Metoprolol Tartrate 25 MG TAB PO SCH ×2 (08:22→20:29)
[2019-04-28] MEDS: cloNIDine 0.1 MG TAB PO SCH ×2 (08:22→20:28)
[2019-04-28] MEDS: Famotidine 20 MG TAB PO SCH (08:22)
[2019-04-28] MEDS: Gemfibrozil 600 MG TAB PO SCH (08:22)
[2019-04-28] MEDS: Amlodipine 5 MG TAB PO SCH (08:22)
[2019-04-28] MEDS: HumuLIN 70/30 (300 UNITS/3 ML VIAL) SC SCH (08:23)
[2019-04-28] MEDS: Heparin 5,000 UNITS/ML VIAL SC SCH ×3 (08:23→20:29)
[2019-04-28] MEDS: Cyclobenzaprine 10 MG TAB PO PRN ×2 (08:27→22:40)
--- NOTE | 2019-04-28 11:34 | PDOC.HOSPP ---
- Subjective Encounter Date: 04/28/19 Subjective: patient c/o insomnia - Objective Vital Signs & Weight: Vital Signs (12 hours) Temp Pulse Resp BP BP BP Pulse Ox 04/28/19 08:35 95 04/28/19 08:22 78 136/75 04/28/19 07:59 99.0 F 78 20 136/75 95 04/28/19 05:34 97.8 F 75 18 150/62 H 95 04/28/19 00:00 98.1 F 73 17 152/90 H 97 Weight Admit Weight 201 lb Weight 208 lb 1.6 oz I&O: 04/27/19 04/28/19 04/29/19 06:59 06:59 06:59 Intake Total 1250 950 Output Total 3600 Balance 1250 -2650 Result Diagrams: 04/26/19 05:45 04/26/19 05:45 Additional Labs: Accuchecks 04/28/19 04/27/19 04/27/19 04:31 19:42 16:40 POC Glucose 186 H 201 H 232 H 04/27/19 04/19/19 12:37 16:54 POC Glucose 126 H 63 L Hospitalist ROS - Review of Systems Other: c/o insomnia - Medication Medications: Active Medications Generic Name Dose Route Start Last Admin Trade Name Freq PRN Reason Stop Dose Admin Acetaminophen 1,000 mg 04/15/19 15:32 04/22/19 22:25 Tylenol PO 1,000 mg Q6H PRN Administration Moderate to Severe Pain (6-10) Hydrocodone Bitart/Acetaminophen 1 tab 04/24/19 12:27 04/28/19 06:33 [place] 5/325 PO 1 tab Q4H PRN Administration Moderate Pain (4-6) Amlodipine Besylate 5 mg 04/15/19 09:00 04/28/19 08:22 Norvasc PO 5 mg DAILY HOMERO Administration Aspirin 81 mg 04/18/19 09:00 04/28/19 08:22 Ecotrin PO 81 mg DAILY [facility] Administration Atorvastatin Calcium 20 mg 04/14/19 21:00 04/27/19 20:56 Lipitor PO 20 mg HS HOMERO Administration Bisacodyl 10 mg 04/16/19 12:32 04/23/19 20:56 Dulcolax PO 10 mg DAILYPRN PRN Administration Constipation Clonidine 0.1 mg 04/14/19 21:00 04/28/19 08:22 Catapres PO 0.1 mg BID [facility] Administration Cyclobenzaprine HCl 10 mg 04/15/19 18:16 04/28/19 08:27 Flexeril PO 10 mg TIDPRN PRN Administration Muscle Spasm Famotidine 20 mg 04/16/19 09:00 04/28/19 08:22 Pepcid PO 20 mg DAILY [facility] Administration Ferrous Sulfate 325 mg 04/17/19 21:00 04/28/19 08:21 Feosol PO 325 mg BID [facility] Administration Gemfibrozil 600 mg 04/15/19 09:00 04/28/19 08:22 Lopid PO 600 mg DAILY [facility] Administration Heparin Sodium (Porcine) 5,000 units 04/13/19 21:00 04/28/19 08:23 Heparin SC 5,000 units TID [facility] Administration Hydralazine HCl 10 mg 04/25/19 16:07 04/25/19 16:39 Apresoline SLOW IVP 10 mg Q4H PRN Administration Hypertension Cefazolin Sodium 3 gm/ Sodium 100 mls @ 200 mls/hr 04/27/19 12:00 04/27/19 13 :23 Chloride IVPB 100 mls MoWeFr HOMERO Administration Insulin Human Isoph/Insulin Regular 15 units 04/20/19 07:30 04/28/19 08:23 Humulin 70/30 SC 15 unit DAILY-[facility] Administration Insulin Human Regular 0 units 04/15/19 21:47 04/26/19 13:43 Humulin R SC 2 unit .MODERATE SLIDING SC PRN Administration Moderate Correctional Scale Insulin Human Regular 0 units 04/15/19 21:47 04/25/19 20:23 Humulin R SC 2 unit .BEDTIME SLIDING SC PRN Administration Bedtime Correctional Scale Levofloxacin 250 mg 04/25/19 14:00 04/27/19 13:23 Levaquin PO 250 mg 1400 [facility] Administration Metoprolol Tartrate 25 mg 04/14/19 21:00 04/28/19 08:22 Lopressor PO 25 mg BID [facility] Administration Ondansetron HCl 4 mg 04/14/19 19:03 04/24/19 13:17 Zofran IVP 4 mg Q6H PRN Administration Nausea/Vomiting Polyethylene Glycol 17 gm 04/25/19 09:00 04/28/19 08:21 Miralax PO 17 gm DAILY [facility] Administration Sertraline HCl 100 mg 04/17/19 21:00 04/28/19 08:22 Zoloft PO 100 mg BID [facility] Administration Sevelamer Carbonate 1,600 mg 04/23/19 12:00 04/28/19 08:21 Renvela PO 1,600 mg TID-WM [facility] Administration Sodium Chloride 10 ml 04/19/19 21:00 04/28/19 08:23 Flush - Normal Saline IVF 10 ml Q12HR [facility] Administration Sodium Chloride 10 ml 04/19/19 19:26 04/27/19 14:39 Flush - Normal Saline IVF 10 ml PRN PRN Administration Saline Flush Tramadol HCl 50 mg 04/26/19 09:08 04/26/19 19:13 Ultram PO 50 mg Q6H PRN Administration Breakthrough Pain - Exam General Appearance: awake alert Eye: PERRL, anicteric sclera ENT: normocephalic atraumatic, no oropharyngeal lesions, moist mucosa Neck: supple, symmetric, no JVD, no thyromegaly, no lymphadenopathy, no carotid bruit Heart: RRR, no murmur, no gallops, no rubs, normal peripheral pulses Respiratory: CTAB, no wheezes, no rales, no ronchi, normal chest expansion, no tachypnea, normal percussion Gastrointestinal: soft, non-tender, non-distended, normal bowel sounds, no palpable masses, no hepatomegaly, no splenomegaly, no bruit Extremities: no cyanosis, no clubbing, no edema Skin: normal turgor, no lesions, no rashes Neurological: cranial nerve grossly intact, normal sensation to touch, no weakness, no focal deficits, no new deficit Musculoskeletal: normal tone, normal strength, no muscle wasting Psychiatric: normal affect, normal behavior, A&O x 3 Hosp A/P (1) Acute metabolic encephalopathy Code(s): G93.41 - METABOLIC ENCEPHALOPATHY Status: Resolved (2) Bacteremia Code(s): R78.81 - BACTEREMIA Status: Acute (3) Discitis Code(s): M46.40 - DISCITIS, UNSPECIFIED, SITE UNSPECIFIED Status: Acute Qualifiers: Spinal region: thoracic Qualified Code(s): M46.44 - Discitis, unspecified, thoracic region (4) Osteomyelitis Code(s): M86.9 - OSTEOMYELITIS, UNSPECIFIED Status: Acute (5) DM2 (diabetes mellitus, type 2) Status: Chronic 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 (6) Back pain Code(s): M54.9 - DORSALGIA, UNSPECIFIED Status: Acute Qualifiers: Back pain location: low back pain (7) Sepsis Code(s): A41.9 - SEPSIS, UNSPECIFIED ORGANISM Status: Resolved (8) Dialysis AV fistula infection Code(s): T82.7XXA - INFECT/INFLM REACT D/T OTH CARDI/VASC DEV/IMPLNT/GRFT, INIT Status: Ruled-out (9) Diabetes mellitus type 2 with peripheral artery disease Code(s): E11.51 - TYPE 2 DIABETES W DIABETIC PERIPHERAL ANGIOPATH W/O GANGRENE Status: Chronic (10) Dyslipidemia Code(s): E78.5 - HYPERLIPIDEMIA, UNSPECIFIED Status: Chronic (11) ESRD on hemodialysis Code(s): N18.6 - END STAGE RENAL DISEASE; Z99.2 - DEPENDENCE ON RENAL DIALYSIS Status: Chronic (12) Hypertension Code(s): I10 - ESSENTIAL (PRIMARY) HYPERTENSION Status: Chronic - Plan old records reviewed/req, plan discussed w/ family, PT/OT 1.I will d/c right groin cathter for risk of infections. 2.order for new pheripheral line. 3.Star cefazolin 3 gm after each HD and oral levaquin 250 mg daily till june 02. 4.Discharge plan once leukocytosis resolves with care plan for fall precautions.Will renew tramadol. 5.ct abdomen and pelvis reviwed with likely T6-T9 osteomyelitis.Continue antibiotics until May.Discharge plan to snf.
--- NOTE | 2019-04-28 16:55 | PRG ---
DATE OF SERVICE: 04/28/2019 SUBJECTIVE: The patient walking around much better functional state. I think she is going to be going to rehab. She is still constipated. OBJECTIVE: VITAL SIGNS: T-max 99.3. Other vital signs are normal. HEENT: The facial bruising area with swelling is improving steadily. BACK: Pain is somewhat better. ABDOMEN: Pain is probably most likely radiculopathic. EXTREMITIES: Good strength in lower extremities. LUNGS: Clear. HEART: S1-S2. Regular Rate. ABDOMEN: Soft. LABORATORY DATA: White cell count is steadily going down, it is at 25.6. Hemoglobin 9.2 and platelets 486 with 80% neutrophils. ASSESSMENT AND DISCUSSION: She continues on cefazolin after dialysis and levofloxacin daily oral, and the end date of therapy will be June 04 depending on the followup results of C-reactive protein and clinical response. She will need a repeat imaging study. I would probably order a repeat thoracic spine MRI to follow up those findings to make sure that soft tissue findings are resolved or resolving. Job ID: [id number]
[2019-04-28] MEDS: Insulin Regular 300 UNITS/3 ML VIAL SC PRN (17:25)
--- NOTE | 2019-04-28 17:48 | PRG ---
DATE OF SERVICE: 04/28/2019 SUBJECTIVE: A 59-year-old female, being seen for end-stage renal disease. The patient denied nausea, vomiting, or chest pain. OBJECTIVE: CONSTITUTIONAL: The patient is awake, alert. VITAL SIGNS: Afebrile, pulse 75, breathing 16, blood pressure 134/67. GENERAL APPEARANCE AND MENTAL STATUS: Fair. HEAD/NECK: Normocephalic. Atraumatic. EYES: EOMI. No deformity. EARS: Clear. No ulcers. NOSE: Intact. No lesions. MOUTH: Clear. No discharge. THROAT: Clear. No exudate. LUNGS: Clear. No crackles. CARDIAC: S1, S2. No rub. ABDOMEN: Benign. Bowel sounds positive. GENITALIA/RECTUM: Weeks absent. BACK/EXTREMITIES: Edema 0+. NEUROLOGICAL: Alert and motor intact. SKIN: LYMPHATICS: LABORATORY DATA: Hemoglobin 9.2. ASSESSMENT: 1. Stage 6 chronic kidney disease, continue hemodialysis. 2. Hypertension, stable. 3. Anemia, stable. 4. Medication based on GFR appropriate. Job ID: [id number]
[2019-04-28] MEDS: Atorvastatin Calcium 20 MG TAB PO SCH (20:29)
[2019-04-29] MEDS: HYDROcodone/Acetaminophen 5/325 mg Tablet PO PRN ×5 (02:43→23:26)
[2019-04-29] MEDS: traMADol HCl 50 MG TAB PO PRN ×2 (05:43→20:57)
[2019-04-29] MEDS: HumuLIN 70/30 (300 UNITS/3 ML VIAL) SC SCH ×2 (08:04→20:59)
[2019-04-29 09:26] LABS: #Eosinphils 0.2 thou/uL (0.0-0.7); #Lymphocytes 1.1 thou/uL (1.20-3.40); #Monocytes 1.3 thou/uL (0.11-0.59); #Neutrophils 19.2 thou/uL (1.40-6.50); %Basophils 0.1 % (0.0-1.0); %Eosinophils 0.7 % (0.0-10.0); %Lymphocytes 5.2 % (21.0-51.0); %Monocytes 5.8 % (0.0-10.0); %Neutrophils 88.1 % (42.0-75.0); Hemoglobin 8.3 g/dL (12.0-16.0); Mean Corpuscular HGB CONC 32.2 g/dL (32.0-36.0); Mean Corpuscular Volume 99.5 fL (78.0-98.0); Mean Platelet Volume 7.3 fL (7.4-10.4); Platelet Count 455 thou/uL (130-400); RBC Distribution Width 14.2 % (11.5-14.5); Red Blood Cell (RBC) Count 2.61 mill/uL (4.20-5.40); White Blood Cell (WBC) Count 21.8 thou/uL (4.8-10.8)
[2019-04-29] MEDS: Sevelamer Carbonate 800 MG TAB PO SCH ×3 (09:28→17:21)
[2019-04-29] MEDS: cloNIDine 0.1 MG TAB PO SCH ×2 (09:28→20:56)
[2019-04-29] MEDS: Heparin 5,000 UNITS/ML VIAL SC SCH ×3 (09:29→20:59)
[2019-04-29 09:44] LABS: ALT (SGPT) Less than 7 U/L (8-55); AST (SGOT) 13 U/L (5-34); Albumin 2.8 g/dL (3.5-5.0); Alkaline Phosphatase 115 U/L (40-110); Anion Gap 12 mmol/L (10-20); BUN (Urea Nitrogen) 34 mg/dL (9.8-20.1); Bilirubin, Total 0.2 mg/dL (0.2-1.2); Calc. Creatinine Clearance 20 mL/min (70-130); Calcium 9.1 mg/dL (7.8-10.44); Carbon Dioxide 28 mmol/L (22-29); Chloride 98 mmol/L (98-107); Estimated GFR-MDRD 10; Globulin 3.6 g/dL (2.4-3.5); Glucose 194 mg/dL (70-105); Protein, Total 6.4 g/dL (6.0-8.3); Sodium 134 mmol/L (136-145)
--- NOTE | 2019-04-29 11:43 | PRG ---
DATE OF SERVICE: 04/29/2019 SUBJECTIVE: This is a 59-year-old female, being seen for end-stage renal disease. The patient denied any nausea, vomiting, or chest pain. OBJECTIVE: See above. The patient is awake and alert. GENERAL APPEARANCE AND MENTAL STATUS: Fair. VITAL SIGNS: Afebrile, pulse 94, breathing 16, and blood pressure 158/90. HEAD/NECK: Normocephalic. Atraumatic. EYES: EOMI. No deformity. EARS: Clear. No ulcers. NOSE: Intact. No lesions. MOUTH: Clear. No discharge. THROAT: Clear. No exudate. LUNGS: Clear. No crackles. CARDIAC: S1, S2. No rub. ABDOMEN: Benign. Bowel sounds positive. GENITALIA/RECTUM: Weeks absent. BACK/EXTREMITIES: Edema 0+. NEUROLOGICAL: Alert and motor intact. SKIN: LYMPHATICS: LABORATORY DATA: Reviewed. ASSESSMENT AND PLAN: 1. Stage 6 chronic kidney disease, plan dialysis. 2. Hypertension, stable. 3. Anemia, stable. 4. Medication based on GFR appropriate. Job ID: [id number]
[2019-04-29] MEDS: Gemfibrozil 600 MG TAB PO SCH (12:37)
[2019-04-29] MEDS: Amlodipine 5 MG TAB PO SCH (12:37)
[2019-04-29] MEDS: Ferrous Sulfate 325 MG TAB PO SCH ×2 (12:37→20:57)
[2019-04-29] MEDS: Metoprolol Tartrate 25 MG TAB PO SCH ×2 (12:38→20:57)
[2019-04-29] MEDS: Famotidine 20 MG TAB PO SCH (12:38)
[2019-04-29] MEDS: Aspirin 81 mg Enteric Coated Tablet PO SCH (12:38)
[2019-04-29] MEDS: Cyclobenzaprine 10 MG TAB PO PRN (12:39)
[2019-04-29] MEDS: Polyethylene Glycol 3350 17 GM Packet PO SCH (12:40)
--- NOTE | 2019-04-29 13:00 | PDOC.HOSPP ---
- Subjective Encounter Date: 04/29/19 Encounter Time: 13:00 Subjective: Pt. accompanied by daughter and granddaughter in the room. Reports having a BM today and that she is passing gas. States she occasionally has pain of 10/10 in her back and her abdomen that alternates. No radiation. Throbbing in nature and worsened with activity. No fever, chills. No N/V/SOB/CP. - Objective Vital Signs & Weight: Vital Signs (12 hours) Temp Pulse Resp BP BP BP Pulse Ox 04/29/19 12:37 88 154/63 H 04/29/19 12:19 98.8 F 88 20 154/63 H 94 L 04/29/19 09:28 175/91 H 04/29/19 07:27 94 L 04/29/19 07:25 98.2 F 78 20 175/83 H 94 L 04/29/19 02:47 97.4 F L 79 18 158/92 H 97 Weight Admit Weight 201 lb Weight 208 lb 1.6 oz I&O: 04/28/19 04/29/19 04/30/19 06:59 06:59 06:59 Intake Total 950 960 Output Total 3600 Balance -2650 960 Result Diagrams: 04/29/19 08:05 04/29/19 08:05 Additional Labs: Accuchecks 04/29/19 04/28/19 04/28/19 04:37 20:06 17:01 POC Glucose 171 H 249 H 240 H 04/28/19 11:29 POC Glucose 150 H Hospitalist ROS - Medication Medications: Active Medications Generic Name Dose Route Start Last Admin Trade Name Ronq PRN Reason Stop Dose Admin Acetaminophen 1,000 mg 04/15/19 15:32 04/22/19 22:25 Tylenol PO 1,000 mg Q6H PRN Administration Moderate to Severe Pain (6-10) Aspirin 81 mg 04/18/19 09:00 04/29/19 12:38 Ecotrin PO 81 mg DAILY [facility] Administration Atorvastatin Calcium 20 mg 04/14/19 21:00 04/28/19 20:29 Lipitor PO 20 mg HS [facility] Administration Bisacodyl 10 mg 04/16/19 12:32 04/23/19 20:56 Dulcolax PO 10 mg DAILYPRN PRN Administration Constipation Clonidine 0.1 mg 04/14/19 21:00 04/29/19 09:28 Catapres PO Not Given BID [facility] Cyclobenzaprine HCl 10 mg 04/15/19 18:16 04/29/19 12:39 Flexeril PO 10 mg TIDPRN PRN Administration Muscle Spasm Famotidine 20 mg 04/16/19 09:00 04/29/19 12:38 Pepcid PO 20 mg DAILY [facility] Administration Ferrous Sulfate 325 mg 04/17/19 21:00 04/29/19 12:37 Feosol PO 325 mg BID [facility] Administration Gemfibrozil 600 mg 04/15/19 09:00 04/29/19 12:37 Lopid PO 600 mg DAILY [facility] Administration Heparin Sodium (Porcine) 5,000 units 04/13/19 21:00 04/29/19 09:29 Heparin SC Not Given TID [facility] Cefazolin Sodium 3 gm/ Sodium 100 mls @ 200 mls/hr 04/27/19 12:00 04/27/19 13 :23 Chloride IVPB 100 mls MoWeFr [facility] Administration Insulin Human Regular 0 units 04/15/19 21:47 04/28/19 17:25 Humulin R SC 4 unit .MODERATE SLIDING SC PRN Administration Moderate Correctional Scale Insulin Human Regular 0 units 04/15/19 21:47 04/25/19 20:23 Humulin R SC 2 unit .BEDTIME SLIDING SC PRN Administration Bedtime Correctional Scale Levofloxacin 250 mg 04/25/19 14:00 04/28/19 12:47 Levaquin PO 250 mg 1400 [facility] Administration Metoprolol Tartrate 25 mg 04/14/19 21:00 04/29/19 12:38 Lopressor PO 25 mg BID [facility] Administration Ondansetron HCl 4 mg 04/14/19 19:03 04/24/19 13:17 Zofran IVP 4 mg Q6H PRN Administration Nausea/Vomiting Polyethylene Glycol 17 gm 04/25/19 09:00 04/29/19 12:40 Miralax PO 17 gm DAILY [facility] Administration Sertraline HCl 100 mg 04/17/19 21:00 04/29/19 12:37 Zoloft PO 100 mg BID [facility] Administration Sevelamer Carbonate 1,600 mg 04/23/19 12:00 04/29/19 12:37 Renvela PO 1,600 mg TID-WM [facility] Administration Sodium Chloride 10 ml 04/19/19 21:00 04/29/19 12:39 Flush - Normal Saline IVF 10 ml Q12HR [facility] Administration Sodium Chloride 10 ml 04/19/19 19:26 04/27/19 14:39 Flush - Normal Saline IVF 10 ml PRN PRN Administration Saline Flush - Exam General Appearance: NAD, awake alert (sitting in the chair) Eye: PERRL, anicteric sclera ENT: normocephalic atraumatic, no oropharyngeal lesions Neck: supple Heart: RRR, no murmur, no gallops Respiratory: CTAB, no wheezes Gastrointestinal: soft, non-tender, non-distended Extremities: no cyanosis, no clubbing, no edema Skin - other findings: bruising over the right side of the face Hosp A/P (1) MSSA bacteremia Code(s): R78.81 - BACTEREMIA Status: Acute Plan: ANCELMO -ve for any vegetations Will obtain repeat blood cultures to evaluate for bacterial clearance ID on board. On IV ABX. Continue the same High risk due to need for IV ABX and further work up prior to DC on IV abx to SNF/rehab (2) Osteomyelitis Code(s): M86.9 - OSTEOMYELITIS, UNSPECIFIED Status: Acute Qualifiers: Osteomyelitis type: unspecified type Osteomyelitis location: other site Qualified Code(s): M86.9 - Osteomyelitis, unspecified Plan: On IV ABX ID on board Persistent leukocytosis. ID recommended repeat thoracic spine MRI to evaluate the soft tissues. Order placed for MRI thoracic spine w/o contrast (3) DM2 (diabetes mellitus, type 2) Status: Chronic Qualifiers: Diabetes mellitus detention insulin use: with detention use Diabetes mellitus complication status: with kidney complications Diabetes mellitus complication detail: with chronic kidney disease Chronic kidney disease stage : on chronic dialysis Qualified Code(s): E11.22 - Type 2 diabetes mellitus with diabetic chronic kidney disease; N18.6 - End stage renal disease; Z79.4 - retirement (current) use of insulin; Z99.2 - Dependence on renal dialysis Plan: Check HA1C Increase NPH 70/30 insulin to BID dosing Continue diabetic diet and SSI (4) Hypertension Code(s): I10 - ESSENTIAL (PRIMARY) HYPERTENSION Status: Chronic Qualifiers: Hypertension type: essential hypertension Qualified Code(s): I10 - Essential (primary) hypertension Plan: Stable BP Continue current meds Monitor BP and adjust meds accordingly (5) ESRD on hemodialysis Code(s): N18.6 - END STAGE RENAL DISEASE; Z99.2 - DEPENDENCE ON RENAL DIALYSIS Status: Chronic Plan: Renal on board Dialysis per nephrology - Plan plan discussed w/ family, continue antibiotics, PT/OT, out of bed/ambulate, DVT proph w/heparin
[2019-04-29] MEDS ORDERED: Heparin 10,000 UNITS/ 10 ML VIAL ONE (13:57)
[2019-04-29] MEDS: CEFAZOLIN 3 GM in Sodium Chloride 0.9% 100 ML IVPB SCH (14:10)
[2019-04-29] MEDS: Lidocaine 5% Patch TD SCH (14:59)
--- NOTE | 2019-04-29 16:33 | MRI ---
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 Telephone discussion regarding all relevant findings by phone with nurse Elsa PRICE (she would n ot give full name) at 5:05 pm 04/29/2019. She was instructed to notify attending physician. COMPARISON: 04/21/19. FINDINGS: The retail cosmetics sales beauty advisor low image resolution sagittal T1 weighted sequence demonstrates diffuse hypointense bone ma rrow signal abnormality involving the entire C6 and C6 vertebral bodies, with obliteration of disc sp thanh. There is also anterior epidural material in that location encroaching upon the spinal canal, pos sibly impinging on the spinal cord. Thoracic vertebral body heights are maintained. There has been interval worsening of the diffusely T1 hypointense marrow signal now involving the entire T8 vertebral body, with heterogeneously hyperinte nse signal intensity on the STIR sequence, especially at the inferior end plate. There is T2 hyperint ense anterior epidural material from T7-8 to lower T9 level, indenting and mildly posteriorly displac ing the spinal cord, which could be anterior epidural phlegmon or abscess, causing severe central spi nal canal stenosis. This anterior epidural abscess or phlegmon is better visualized on the current st udy because the prior axial images were more degraded by patient motion. T2 hyperintense signal throughout the T8-9 disc space consistent with discitis. A 2.5 x 1 x 4 cm T2 hyperintense lesion in the prevertebral space extending from the T6-7 level down to at least the T8-9 level and possibly more inferiorly, representing either abscess or phlegmon. Ab scess favored, but difficult to be sure without IV gadolinium-based contrast agent (not given because of renal failure). Other than those levels, no high grade central spinal canal stenosis elsewhere. No vertebral body col lapse. There is a new finding of patchy regions of bone marrow edema involving the anterior end plates at T1 1-12, with new finding of soft tissue edema in the prevertebral space anterior to that. No bony retro pulsion. Difficulty to evaluate cord signal because of motion artifact. No obvious syrinx. Very small bilateral pleural effusions. IMPRESSION: 1. Suspicious for infectious spondylitis of the lower cervical spine: osteomyelitis-discitis of C6 and C7, with possible anterior epidural phlegmon or abscess impinging on the lower cervical spinal cord. Incompletely imaged. 2. Interval worsening of infectious spondylitis (osteomyelitis-discitis) at T8-9, in particular the osteomyelitis involvement of T8. 3. Anterior epidural phlegmon or abscess, at least mildly impinging on the spinal cord from T7-8 to lower T9 levels. 4. A lesion in the prevertebral space from T6-7 to at least T8-9 levels, has slightly increased in size, and is probably an abscess in the prevertebral space. 5. New focus of infectious spondylitis (osteomyelitis-discitis) at T11-12. POS: TPC
--- NOTE | 2019-04-29 20:11 | MRI ---
MRI CERVICAL SPINE WITHOUT CONTRAST: 04/29/19 HISTORY: Abnormal MRI thoracic spine. Discitis/osteomyelitis. FINDINGS: Exam is limited due to large amount of artifact and absence of IV contrast. There is decreased T1 signal in the C6 and C7 vertebral bodies with increased T2 signal predominantly in the peridiscal regions of C6-7. There is also increased T2 signal in the C6-7 disc. There are disc osteophyte complexes with effacement of the anterior thecal sac and probable impingeme nt of the anterior spinal cord at this level. Possibility of epidural abscess cannot be completely ex cluded on this study. No definite signal abnormalities are seen in the cervical spinal cord. There is increased T2 signal i n the prevertebral soft tissues at C6-7 level. This may represent an abscess or phlegmon. The anterio r epidural material at this level mildly displacing the anterior cord is dark on T2 and does not hav e the appearance of an abscess but could represent a phlegmon. IMPRESSION: Findings are suspicious for discitis/osteomyelitis at C6-7 level. POS: OFF
[2019-04-29] MEDS: Atorvastatin Calcium 20 MG TAB PO SCH (20:57)
--- NOTE | 2019-04-29 22:21 | CON ---
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 Ward, history of coronary artery disease with prior stenting, who presented to the emergency department on 04/13/2019 for some increased redness, swelling, and pain to the left upper extremity at her dialysis catheter site as well as fever. She was admitted by the Medicine Service for suspected cellulitis of the left upper extremity and also had positive blood cultures for MSSA. She is complaining of some mid back pain, so repeat MRI of the thoracic spine was done which was notable for changes from T7-T9 concerning for osteomyelitis and diskitis. Dr. Ward has been consulted and was treating the patient with IV antibiotics for this process. The patient seemed to improve during her admission course, had decreased pain and was mobilizing with the assistance of PT. Plan was to discharge the patient home possibly tomorrow with plans for ongoing outpatient antibiotics. However, repeat thoracic MRI prior to dismissal was notable for increased progression of infectious changes from T7-T9, as well as new area of suspicious for osteomyelitis and diskitis from C6-C7. Neurosurgery was consulted for evaluation of this progression of process, as well as new findings at C6-C7. I got an MRI of the cervical spine to further completely evaluate the cervical changes. She does have some signal changes suggesting osteomyelitis and diskitis from the C6-C7 and there is questionable epidural phlegmon, however, there is no clear drainable fluid collection or evidence of significant compression. PAST MEDICAL HISTORY: End-stage renal disease on dialysis, type 2 diabetes, history of coronary artery disease with prior stenting, history of prior osteomyelitis and diskitis to the thoracic spine as well as endocarditis. PAST SURGICAL HISTORY: Appendectomy, multiple dialysis access placement. SOCIAL HISTORY: The patient is a former smoker. She lives at home with her family. REVIEW OF SYSTEMS: Per HPI. PHYSICAL EXAMINATION: VITAL SIGNS: The patient has been afebrile over the last several days. Her BP is 156/96, heart rate is 89. She is 97% on room air. CONSTITUTIONAL: Awakens easily. No acute distress. HEENT: Head, normocephalic and atraumatic. Eyes, pupils equal and reactive to light. Oral mucosa is pink, intact. NECK: Nontender to palpation. Free active range of motion. No meningismus. No nuchal rigidity. CARDIAC: Regular rate and rhythm. LUNGS: Symmetric chest expansion. No evidence of dyspnea. MUSCULOSKELETAL: No obvious deformities. Symmetric pulses. NEUROLOGIC: Oriented x3. No focal neurologic deficits are appreciated. ASSESSMENT AND PLAN: This is a 59-year-old female with a prior history of thoracic osteomyelitis and diskitis treated in the past by ID, who has a new episode of left upper extremity cellulitis, positive blood cultures for methicillin-sensitive Staphylococcus aureus and progression of her thoracic osteomyelitis and diskitis as well as new area at C6-C7 suggestive of osteomyelitis and diskitis. There was no obvious fluid collection or compression of the thecal sac. At this point, the patient appears to be improving. She is afebrile and she is mobilizing with PT. We will recommend ongoing antibiotic regimen and defer to ID. If further need for evaluation for organisms is needed, a CT-guided biopsy would be recommended. We will defer ongoing evaluation and management to Medicine Team in ID. No acute neurosurgical intervention is anticipated at this time. Job ID: [id number] [facility]
[2019-04-30] MEDS: Lidocaine Patch Removal 1 EACH TOP SCH (02:44)
[2019-04-30] MEDS: traMADol HCl 50 MG TAB PO PRN (04:43)
[2019-04-30] MEDS: Insulin Regular 300 UNITS/3 ML VIAL SC PRN (04:44)
[2019-04-30 05:30] LABS: #Eosinphils 0.2 thou/uL (0.0-0.7); #Lymphocytes 1.4 thou/uL (1.20-3.40); #Monocytes 1.6 thou/uL (0.11-0.59); #Neutrophils 16.1 thou/uL (1.40-6.50); %Basophils 0.2 % (0.0-1.0); %Eosinophils 1.2 % (0.0-10.0); %Lymphocytes 7.3 % (21.0-51.0); %Monocytes 8.2 % (0.0-10.0); %Neutrophils 83.2 % (42.0-75.0); Hemoglobin 8.2 g/dL (12.0-16.0); Mean Corpuscular HGB CONC 32.2 g/dL (32.0-36.0); Mean Corpuscular Hemoglobin 32.1 pg (27.0-31.0); Mean Corpuscular Volume 99.5 fL (78.0-98.0); Mean Platelet Volume 6.9 fL (7.4-10.4); Platelet Count 430 thou/uL (130-400); RBC Distribution Width 14.1 % (11.5-14.5); Red Blood Cell (RBC) Count 2.56 mill/uL (4.20-5.40); White Blood Cell (WBC) Count 19.4 thou/uL (4.8-10.8)
[2019-04-30 05:39] LABS: Hemoglobin A1c 6.3 % (4.0-6.0)
[2019-04-30 05:54] LABS: ALT (SGPT) Less than 7 U/L (8-55); AST (SGOT) 11 U/L (5-34); Albumin 2.9 g/dL (3.5-5.0); Alkaline Phosphatase 124 U/L (40-110); Anion Gap 11 mmol/L (10-20); BUN (Urea Nitrogen) 22 mg/dL (9.8-20.1); Bilirubin, Total 0.2 mg/dL (0.2-1.2); Calc. Creatinine Clearance 28 mL/min (70-130); Calcium 9.2 mg/dL (7.8-10.44); Carbon Dioxide 31 mmol/L (22-29); Chloride 97 mmol/L (98-107); Estimated GFR-MDRD 14; Globulin 3.8 g/dL (2.4-3.5); Glucose 255 mg/dL (70-105); Potassium 4.3 mmol/L (3.5-5.1); Protein, Total 6.7 g/dL (6.0-8.3); Sodium 135 mmol/L (136-145)
[2019-04-30] MEDS: HYDROcodone/Acetaminophen 5/325 mg Tablet PO PRN ×2 (07:10→20:36)
[2019-04-30] MEDS: Sevelamer Carbonate 800 MG TAB PO SCH ×3 (08:22→17:15)
[2019-04-30] MEDS: Aspirin 81 mg Enteric Coated Tablet PO SCH (08:22)
[2019-04-30] MEDS: Heparin 5,000 UNITS/ML VIAL SC SCH ×3 (08:23→20:36)
[2019-04-30] MEDS: Polyethylene Glycol 3350 17 GM Packet PO SCH (08:23)
[2019-04-30] MEDS: cloNIDine 0.1 MG TAB PO SCH ×2 (08:23→20:35)
[2019-04-30] MEDS: Bisacodyl 5 MG TAB PO SCH (08:23)
[2019-04-30] MEDS: Ferrous Sulfate 325 MG TAB PO SCH ×2 (08:24→20:35)
[2019-04-30] MEDS: Gemfibrozil 600 MG TAB PO SCH (08:24)
[2019-04-30] MEDS: Metoprolol Tartrate 25 MG TAB PO SCH ×2 (08:24→20:35)
[2019-04-30] MEDS: Famotidine 20 MG TAB PO SCH (08:24)
[2019-04-30] MEDS: Amlodipine 10 MG TAB PO SCH (08:24)
[2019-04-30] MEDS: HumuLIN 70/30 (300 UNITS/3 ML VIAL) SC SCH ×2 (08:25→20:38)
--- NOTE | 2019-04-30 09:34 | PDOC.HOSPP ---
- Subjective Encounter Date: 04/30/19 Encounter Time: 09:33 Subjective: Patient was seen by neurosurgery last night. Currently, states that she is feeling better. However, reports worsening pain, fatigue in the evening and night time. No CP, SOB. Has been having BMs. - Objective Vital Signs & Weight: Vital Signs (12 hours) Temp Pulse Resp BP BP Pulse Ox 04/30/19 08:24 87 155/85 H 04/30/19 08:23 155/85 H 04/30/19 07:37 97.9 F 87 20 155/85 H 98 04/30/19 04:00 98.6 F 77 19 168/76 H 97 04/30/19 00:00 98.7 F 78 18 171/94 H 93 L Weight Admit Weight 201 lb Weight 208 lb 1.6 oz I&O: 04/29/19 04/30/19 05/01/19 06:59 06:59 06:59 Intake Total 960 730 Output Total 2600 Balance 960 -1870 Result Diagrams: 04/30/19 05:09 04/30/19 05:09 Additional Labs: Accuchecks 04/30/19 04/29/19 04/29/19 04:14 19:55 16:29 POC Glucose 242 H 220 H 183 H 04/29/19 12:24 POC Glucose 143 H Hospitalist ROS - Medication Medications: Active Medications Generic Name Dose Route Start Last Admin Trade Name Freq PRN Reason Stop Dose Admin Acetaminophen 1,000 mg 04/15/19 15:32 04/22/19 22:25 Tylenol PO 1,000 mg Q6H PRN Administration Moderate to Severe Pain (6-10) Hydrocodone Bitart/Acetaminophen 1 tab 04/29/19 12:47 04/30/19 07:10 [employer] 5/325 PO 1 tab Q6H PRN Administration Moderate to Severe Pain (6-10) Amlodipine Besylate 10 mg 04/30/19 09:00 04/30/19 08:24 Norvasc PO 10 mg DAILY HOMERO Administration Aspirin 81 mg 04/18/19 09:00 04/30/19 08:22 Ecotrin PO 81 mg DAILY HOMERO Administration Atorvastatin Calcium 20 mg 04/14/19 21:00 04/29/19 20:57 Lipitor PO 20 mg HS HOMERO Administration Bisacodyl 10 mg 04/30/19 09:00 04/30/19 08:23 Dulcolax PO 10 mg DAILY HOMERO Administration Clonidine 0.1 mg 04/14/19 21:00 04/30/19 08:23 Catapres PO 0.1 mg BID HOMERO Administration Famotidine 20 mg 04/16/19 09:00 04/30/19 08:24 Pepcid PO 20 mg DAILY HOMERO Administration Ferrous Sulfate 325 mg 04/17/19 21:00 04/30/19 08:24 Feosol PO 325 mg BID HOMERO Administration Gemfibrozil 600 mg 04/15/19 09:00 04/30/19 08:24 Lopid PO 600 mg DAILY HOMERO Administration Heparin Sodium (Porcine) 5,000 units 04/13/19 21:00 04/30/19 08:23 Heparin SC 5,000 units TID HOMERO Administration Cefazolin Sodium 3 gm/ Sodium 100 mls @ 200 mls/hr 04/27/19 12:00 04/29/19 14 :10 Chloride IVPB 100 mls MoWeFr HOMERO Administration Insulin Human Isoph/Insulin Regular 15 units 04/29/19 21:00 04/30/19 08:25 Humulin 70/30 SC 15 unit BID HOMERO Administration Insulin Human Regular 0 units 04/15/19 21:47 04/30/19 04:44 Humulin R SC 4 unit .MODERATE SLIDING SC PRN Administration Moderate Correctional Scale Insulin Human Regular 0 units 04/15/19 21:47 04/25/19 20:23 Humulin R SC 2 unit .BEDTIME SLIDING SC PRN Administration Bedtime Correctional Scale Levofloxacin 250 mg 04/25/19 14:00 04/29/19 14:10 Levaquin PO 250 mg 1400 HOMERO Administration Lidocaine 1 patch 04/29/19 14:00 04/29/19 14:59 Lidoderm 5% Patch TD 1 patch 1400 [facility] Administration Metoprolol Tartrate 25 mg 04/14/19 21:00 04/30/19 08:24 Lopressor PO 25 mg BID HOMERO Administration Miscellaneous Medication 1 each 04/30/19 02:00 04/30/19 02:44 Lidocaine Patch Removal TOP Not Given 0200 [facility] Ondansetron HCl 4 mg 04/14/19 19:03 04/24/19 13:17 Zofran IVP 4 mg Q6H PRN Administration Nausea/Vomiting Polyethylene Glycol 17 gm 04/25/19 09:00 04/30/19 08:23 Miralax PO 17 gm DAILY HOMERO Administration Sertraline HCl 100 mg 04/17/19 21:00 04/30/19 08:24 Zoloft PO 100 mg BID HOMERO Administration Sevelamer Carbonate 1,600 mg 04/23/19 12:00 04/30/19 08:22 Renvela PO 1,600 mg TID-WM HOMERO Administration Sodium Chloride 10 ml 04/19/19 21:00 04/30/19 08:26 Flush - Normal Saline IVF 10 ml Q12HR HOMERO Administration Sodium Chloride 10 ml 04/19/19 19:26 04/29/19 14:11 Flush - Normal Saline IVF 10 ml PRN PRN Administration Saline Flush - Exam General Appearance: NAD, awake alert (sitting in the chair) Eye: PERRL, anicteric sclera Neck: supple, symmetric, no JVD Heart: RRR, no murmur, no gallops, normal peripheral pulses Respiratory: CTAB, no wheezes, no rales, normal chest expansion Gastrointestinal: soft, non-tender, no guarding, no rigidity Hosp A/P (1) MSSA bacteremia Code(s): R78.81 - BACTEREMIA Status: Acute (2) Osteomyelitis Code(s): M86.9 - OSTEOMYELITIS, UNSPECIFIED Status: Acute Qualifiers: Osteomyelitis type: unspecified type Osteomyelitis location: other site Qualified Code(s): M86.9 - Osteomyelitis, unspecified (3) DM2 (diabetes mellitus, type 2) Status: Chronic Qualifiers: Diabetes mellitus alf insulin use: with alf use Diabetes mellitus complication status: with kidney complications Diabetes mellitus complication detail: with chronic kidney disease Chronic kidney disease stage : on chronic dialysis Qualified Code(s): E11.22 - Type 2 diabetes mellitus with diabetic chronic kidney disease; N18.6 - End stage renal disease; Z79.4 - [facility]CI (current) use of insulin; Z99.2 - Dependence on renal dialysis (4) Hypertension Code(s): I10 - ESSENTIAL (PRIMARY) HYPERTENSION Status: Chronic Qualifiers: Hypertension type: essential hypertension Qualified Code(s): I10 - Essential (primary) hypertension (5) ESRD on hemodialysis Code(s): N18.6 - END STAGE RENAL DISEASE; Z99.2 - DEPENDENCE ON RENAL DIALYSIS Status: Chronic - Plan plan discussed w/ family, continue antibiotics, PT/OT, out of bed/ambulate Hosp A/P (1) MSSA bacteremia Code(s): R78.81 - BACTEREMIA Status: Acute Plan: Repeat Blood cultures negative so far ID on board. On IV ABX. Continue ancef and levaquin High risk due to need for IV ABX and further work up prior to DC on IV abx to SNF/rehab (2) Osteomyelitis Code(s): M86.9 - OSTEOMYELITIS, UNSPECIFIED Status: Acute Qualifiers: Osteomyelitis type: unspecified type Osteomyelitis location: other site Qualified Code(s): M86.9 - Osteomyelitis, unspecified Plan: Repeat MRI spine yesterday revealed worsening osteomyelitis and discitis. It also demonstrated possible phlegmon/abscess. Neurosurgery was consulted STAT last night and patient has been evaluated. No surgical intervention required. ESR is 99 and CRP at 15. ID on board. Will await ID recommendations regarding further management. (3) DM2 (diabetes mellitus, type 2) Status: Chronic Qualifiers: Diabetes mellitus intermission coordinator insulin use: with alf use Diabetes mellitus complication status: with kidney complications Diabetes mellitus complication detail: with chronic kidney disease Chronic kidney disease stage : on chronic dialysis Qualified Code(s): E11.22 - Type 2 diabetes mellitus with diabetic chronic kidney disease; N18.6 - End stage renal disease; Z79.4 - truck terminal manager (current) use of insulin; Z99.2 - Dependence on renal dialysis Plan: HA1C 6.3 Continue NPH 70/30 insulin to BID dosing and monitor sugars Adjust meds as needed Continue diabetic diet and SSI (4) Hypertension Code(s): I10 - ESSENTIAL (PRIMARY) HYPERTENSION Status: Chronic Qualifiers: Hypertension type: essential hypertension Qualified Code(s): I10 - Essential (primary) hypertension Plan: Stable BP Continue current meds (5) ESRD on hemodialysis Code(s): N18.6 - END STAGE RENAL DISEASE; Z99.2 - DEPENDENCE ON RENAL DIALYSIS Status: Chronic Plan: Renal on board Dialysis per nephrology with antibiotics 6. s/p AV fistula surgery - Patient receiving dialysis via right dialysis catheter
--- NOTE | 2019-04-30 12:04 | PRG ---
DATE OF SERVICE: 04/30/2019 SUBJECTIVE: A 59-year-old female, being seen for end-stage renal disease. The patient denied nausea, vomiting, or chest pain. OBJECTIVE: GENERAL: The patient is awake and alert. VITAL SIGNS: Afebrile, pulse 75, breathing 16, blood pressure 136/75. GENERAL APPEARANCE AND MENTAL STATUS: Fair. HEAD/NECK: Normocephalic. Atraumatic. EYES: EOMI. No deformity. EARS: Clear. No ulcers. NOSE: Intact. No lesions. MOUTH: Clear. No discharge. THROAT: Clear. No exudate. LUNGS: Clear. No crackles. CARDIAC: S1, S2. No rub. ABDOMEN: Benign. Bowel sounds positive. GENITALIA/RECTUM: Weeks absent. BACK/EXTREMITIES: Edema 0+. NEUROLOGICAL: Alert and motor intact. SKIN: LYMPHATICS: LABORATORY DATA: Hemoglobin 8.2. ASSESSMENT AND PLAN: 1. Stage 6 chronic kidney disease, continue hemodialysis on Saturday, Saturday, and Saturday. 2. Hypertension, stable. 3. Anemia, stable. 4. Medication based on GFR appropriate. Job ID: [id number]
[2019-04-30] MEDS: Lidocaine 5% Patch TD SCH (14:10)
--- NOTE | 2019-04-30 15:43 | PRG ---
DATE OF SERVICE: 04/30/2019 SUBJECTIVE: The patient had a repeat MRI of the thoracic spine, which showed lower cervical spine spondylitis, diskitis, C6-C7, possible anterior epidural phlegmon; and worsening of infectious spondylitis of T8-T9, anterior epidural phlegmon. Dedicated C-spine MRI was done, which concurred with those findings. Neurosurgery recommended medical therapy for now. She does not have any neurological symptoms at this time. OBJECTIVE: VITAL SIGNS: She has been afebrile. HEENT: Facial bruising is improving. LUNGS: Clear. HEART: S1 and S2, regular rate. ABDOMEN: Soft, not distended. BACK: Tenderness as previously. EXTREMITIES: Moves extremities equally. LABORATORY DATA: White cell count 19.4, hemoglobin 8.2, platelets 430, continuing improvement in those indexes. She had repeat blood cultures in 1/2 sets from April 29, has a gram-positive cocci yet to be identified and susceptibility tested. This could be a contaminant, but we will have to wait for final identification of the organism. ASSESSMENT AND DISCUSSION: End-stage renal disease, type 2 diabetes, arteriovenous fistula with complications and then placement of tunneled hemodialysis catheter, and now proven thoracic and cervical spine infection by methicillin sensitive Staphylococcus aureus. There is another organism growing in blood cultures. We will wait for the final identification. Hopefully, this is going to returned item clerk to be a contaminant rather than a true pathogen because then we will have to worry about catheter colonization. We will see what turns out. Continue the current regimen as previously noted. Job ID: [id number]
[2019-04-30] MEDS: Atorvastatin Calcium 20 MG TAB PO SCH (20:35)
[2019-05-01] MEDS: HYDROcodone/Acetaminophen 5/325 mg Tablet PO PRN ×3 (03:15→21:30)
[2019-05-01 05:35] LABS: #Eosinphils 0.3 thou/uL (0.0-0.7); #Lymphocytes 0.9 thou/uL (1.20-3.40); #Neutrophils 12.4 thou/uL (1.40-6.50); %Basophils 0.2 % (0.0-1.0); %Eosinophils 1.9 % (0.0-10.0); %Lymphocytes 6.4 % (21.0-51.0); %Monocytes 7.1 % (0.0-10.0); %Neutrophils 84.4 % (42.0-75.0); Hemoglobin 9.7 g/dL (12.0-16.0); Mean Corpuscular HGB CONC 32.4 g/dL (32.0-36.0); Mean Corpuscular Hemoglobin 32.4 pg (27.0-31.0); Mean Platelet Volume 6.8 fL (7.4-10.4); Platelet Count 369 thou/uL (130-400); RBC Distribution Width 13.8 % (11.5-14.5); Red Blood Cell (RBC) Count 2.99 mill/uL (4.20-5.40); White Blood Cell (WBC) Count 14.7 thou/uL (4.8-10.8)
[2019-05-01 05:55] LABS: ALT (SGPT) Less than 7 U/L (8-55); AST (SGOT) 13 U/L (5-34); Albumin 2.9 g/dL (3.5-5.0); Alkaline Phosphatase 105 U/L (40-110); Anion Gap 12 mmol/L (10-20); BUN (Urea Nitrogen) 31 mg/dL (9.8-20.1); Bilirubin, Total 0.2 mg/dL (0.2-1.2); Calc. Creatinine Clearance 22 mL/min (70-130); Calcium 9.2 mg/dL (7.8-10.44); Carbon Dioxide 24 mmol/L (22-29); Chloride 98 mmol/L (98-107); Estimated GFR-MDRD 11; Globulin 3.7 g/dL (2.4-3.5); Glucose 181 mg/dL (70-105); Potassium 4.3 mmol/L (3.5-5.1); Protein, Total 6.6 g/dL (6.0-8.3); Sodium 130 mmol/L (136-145)
[2019-05-01] MEDS: Lidocaine Patch Removal 1 EACH TOP SCH (06:16)
[2019-05-01] MEDS: traMADol HCl 50 MG TAB PO PRN ×2 (06:19)
[2019-05-01] MEDS: Ondansetron PF 4 MG/2 ML Vial IVP PRN ×2 (06:22→20:07)
[2019-05-01] MEDS: Metoprolol Tartrate 25 MG TAB PO SCH ×2 (08:02→21:30)
[2019-05-01] MEDS: cloNIDine 0.1 MG TAB PO SCH ×2 (08:05→21:30)
[2019-05-01] MEDS: Polyethylene Glycol 3350 17 GM Packet PO SCH (08:06)
[2019-05-01] MEDS: Sevelamer Carbonate 800 MG TAB PO SCH ×3 (08:06→15:57)
[2019-05-01] MEDS: Amlodipine 10 MG TAB PO SCH ×2 (08:07→13:21)
[2019-05-01] MEDS: Bisacodyl 5 MG TAB PO SCH (08:07)
[2019-05-01] MEDS: Famotidine 20 MG TAB PO SCH (08:07)
[2019-05-01] MEDS: Ferrous Sulfate 325 MG TAB PO SCH ×2 (08:07→21:30)
[2019-05-01] MEDS: Gemfibrozil 600 MG TAB PO SCH (08:07)
[2019-05-01] MEDS: Aspirin 81 mg Enteric Coated Tablet PO SCH (08:08)
[2019-05-01] MEDS: Heparin 5,000 UNITS/ML VIAL SC SCH ×3 (08:08→21:32)
[2019-05-01] MEDS ORDERED: HumuLIN 70/30 (300 UNITS/3 ML VIAL) SC SCH (12:15)
[2019-05-01] MEDS: HumuLIN 70/30 (300 UNITS/3 ML VIAL) SC SCH ×2 (13:17→21:35)
[2019-05-01] MEDS: CEFAZOLIN 3 GM in Sodium Chloride 0.9% 100 ML IVPB SCH (13:22)
--- NOTE | 2019-05-01 13:35 | PDOC.HOSPP ---
- Subjective Encounter Date: 05/01/19 Encounter Time: 12:45 Subjective: Pt. seen in dialysis today. Reports back pain that worsens with activity. No fever or chills. No CP, SOB. No N/V/D/C. - Objective Vital Signs & Weight: Vital Signs (12 hours) Temp Pulse Resp BP BP BP Pulse Ox 05/01/19 13:21 78 165/111 H 05/01/19 13:13 98.2 F 78 18 100 05/01/19 08:05 190/95 H 05/01/19 08:00 99 05/01/19 07:41 98.2 F 77 17 190/95 H 99 05/01/19 04:00 98.2 F 69 16 126/61 96 Weight Admit Weight 201 lb Weight 208 lb 1.6 oz I&O: 04/30/19 05/01/19 05/02/19 06:59 06:59 06:59 Intake Total 730 610 Output Total 2600 Balance -1870 610 Result Diagrams: 05/01/19 05:21 05/01/19 05:21 Additional Labs: Accuchecks 05/01/19 04/30/19 04/30/19 04:57 20:08 16:17 POC Glucose 184 H 174 H 84 Hospitalist ROS - Medication Medications: Active Medications Generic Name Dose Route Start Last Admin Trade Name Freq PRN Reason Stop Dose Admin Acetaminophen 1,000 mg 04/15/19 15:32 04/22/19 22:25 Tylenol PO 1,000 mg Q6H PRN Administration Moderate to Severe Pain (6-10) Hydrocodone Bitart/Acetaminophen 1 tab 04/29/19 12:47 05/01/19 10:55 [place] 5/325 PO 1 tab Q6H PRN Administration Moderate to Severe Pain (6-10) Amlodipine Besylate 10 mg 04/30/19 09:00 05/01/19 13:21 Norvasc PO 10 mg DAILY [facility] Administration Aspirin 81 mg 04/18/19 09:00 05/01/19 08:08 Ecotrin PO Not Given DAILY [facility] Atorvastatin Calcium 20 mg 04/14/19 21:00 04/30/19 20:35 Lipitor PO 20 mg HS [facility] Administration Bisacodyl 10 mg 04/30/19 09:00 05/01/19 08:07 Dulcolax PO 10 mg DAILY [facility] Administration Clonidine 0.1 mg 04/14/19 21:00 05/01/19 08:05 Catapres PO 0.1 mg BID [facility] Administration Famotidine 20 mg 04/16/19 09:00 05/01/19 08:07 Pepcid PO 20 mg DAILY [facility] Administration Ferrous Sulfate 325 mg 04/17/19 21:00 05/01/19 08:07 Feosol PO 325 mg BID [facility] Administration Gemfibrozil 600 mg 04/15/19 09:00 05/01/19 08:07 Lopid PO 600 mg DAILY [facility] Administration Heparin Sodium (Porcine) 5,000 units 04/13/19 21:00 05/01/19 08:08 Heparin SC Not Given TID [facility] Cefazolin Sodium 3 gm/ Sodium 100 mls @ 200 mls/hr 04/27/19 12:00 05/01/19 13 :22 Chloride IVPB 100 mls MoWeFr [facility] Administration Insulin Human Isoph/Insulin Regular 20 units 05/01/19 12:15 05/01/19 13:22 Humulin 70/30 SC 05/01/19 14:15 20 unit NOW [facility] Administration Insulin Human Regular 0 units 04/15/19 21:47 04/30/19 04:44 Humulin R SC 4 unit .MODERATE SLIDING SC PRN Administration Moderate Correctional Scale Insulin Human Regular 0 units 04/15/19 21:47 04/25/19 20:23 Humulin R SC 2 unit .BEDTIME SLIDING SC PRN Administration Bedtime Correctional Scale Levofloxacin 250 mg 04/25/19 14:00 05/01/19 13:22 Levaquin PO 250 mg 1400 [facility] Administration Lidocaine 1 patch 04/29/19 14:00 04/30/19 14:10 Lidoderm 5% Patch TD 1 patch 1400 [facility] Administration Metoprolol Tartrate 25 mg 04/14/19 21:00 05/01/19 08:02 Lopressor PO 25 mg BID [facility] Administration Miscellaneous Medication 1 each 04/30/19 02:00 05/01/19 06:16 Lidocaine Patch Removal TOP Not Given 0200 [facility] Ondansetron HCl 4 mg 04/14/19 19:03 05/01/19 06:22 Zofran IVP 4 mg Q6H PRN Administration Nausea/Vomiting Polyethylene Glycol 17 gm 04/25/19 09:00 05/01/19 08:06 Miralax PO 17 gm DAILY [facility] Administration Sertraline HCl 100 mg 04/17/19 21:00 05/01/19 08:07 Zoloft PO 100 mg BID [facility] Administration Sevelamer Carbonate 1,600 mg 04/23/19 12:00 05/01/19 13:22 Renvela PO 1,600 mg TID-WM [facility] Administration Sodium Chloride 10 ml 04/19/19 21:00 05/01/19 08:09 Flush - Normal Saline IVF 10 ml Q12HR [facility] Administration Sodium Chloride 10 ml 04/19/19 19:26 04/29/19 14:11 Flush - Normal Saline IVF 10 ml PRN PRN Administration Saline Flush - Exam General Appearance: NAD, awake alert Neck: supple, no thyromegaly Heart: RRR, no murmur, normal peripheral pulses Respiratory: CTAB, no wheezes, normal chest expansion Gastrointestinal: soft, non-tender, non-distended, normal bowel sounds Hosp A/P (1) MSSA bacteremia Code(s): R78.81 - BACTEREMIA Status: Acute (2) Osteomyelitis Code(s): M86.9 - OSTEOMYELITIS, UNSPECIFIED Status: Acute Qualifiers: Osteomyelitis type: unspecified type Osteomyelitis location: other site Qualified Code(s): M86.9 - Osteomyelitis, unspecified (3) DM2 (diabetes mellitus, type 2) Status: Chronic Qualifiers: Diabetes mellitus assisted insulin use: with termite control servicer use Diabetes mellitus complication status: with kidney complications Diabetes mellitus complication detail: with chronic kidney disease Chronic kidney disease stage : on chronic dialysis Qualified Code(s): E11.22 - Type 2 diabetes mellitus with diabetic chronic kidney disease; N18.6 - End stage renal disease; Z79.4 - ocean transportation intermediary (current) use of insulin; Z99.2 - Dependence on renal dialysis (4) Hypertension Code(s): I10 - ESSENTIAL (PRIMARY) HYPERTENSION Status: Chronic Qualifiers: Hypertension type: essential hypertension Qualified Code(s): I10 - Essential (primary) hypertension (5) ESRD on hemodialysis Code(s): N18.6 - END STAGE RENAL DISEASE; Z99.2 - DEPENDENCE ON RENAL DIALYSIS Status: Chronic - Plan Hosp A/P (1) MSSA bacteremia Repeat Blood cultures negative for MSSA so far ID on board. On IV ABX. Continue ancef and levaquin High risk due to need for IV ABX and further work up prior to DC on IV abx to SNF/rehab Repeat blood cultures - 1/2 positive for Strep species Hopefully, contaminants. Appreciate ID input If Strep species not contaminant, will need to evaluate for permacath colonization (2) Osteomyelitis Repeat MRI spine revealed worsening osteomyelitis and discitis. No surgical intervention needed per neurosurgery. ESR is 99 and CRP at 15. ID on board. Improving leukocytosis today. Continue ancef and levaquin. Add probiotics (3) DM2 (diabetes mellitus, type 2) HA1C 6.3 Continue NPH 70/30 insulin BID dosing and monitor sugars Adjust meds as needed Continue diabetic diet and SSI (4) Hypertension Controlled BP Continue current meds (5) ESRD on hemodialysis Renal on board Dialysis per nephrology with antibiotics 6. s/p AV fistula surgery - Patient receiving dialysis via right dialysis catheter
[2019-05-01] MEDS: Lidocaine 5% Patch TD SCH (13:43)
[2019-05-01] MEDS ORDERED: Heparin 10,000 UNITS/ 10 ML VIAL ONE (13:51)
--- NOTE | 2019-05-01 21:04 | PRG ---
DATE OF SERVICE: 05/01/2019 SUBJECTIVE: This is a 59-year-old female, being seen for end-stage renal disease. The patient denied nausea, vomiting, or chest pain. OBJECTIVE: See above. GENERAL: The patient is awake and alert, in no acute distress. VITAL SIGNS: Afebrile, pulse 79, breathing 16, and blood pressure 179/84. GENERAL APPEARANCE AND MENTAL STATUS: Fair. HEAD/NECK: Normocephalic. Atraumatic. EYES: EOMI. No deformity. EARS: Clear. No ulcers. NOSE: Intact. No lesions. MOUTH: Clear. No discharge. THROAT: Clear. No exudate. LUNGS: Clear. No crackles. CARDIAC: S1, S2. No rub. ABDOMEN: Benign. Bowel sounds positive. GENITALIA/RECTUM: Weeks absent. BACK/EXTREMITIES: Edema 0+. NEUROLOGICAL: Alert and motor intact. SKIN: LYMPHATICS: LABORATORY DATA: Hemoglobin 9.7. ASSESSMENT AND PLAN: 1. Stage chronic kidney disease. Continue hemodialysis. 2. Hypertension, stable. 3. Anemia, stable. 4. Medication based on GFR appropriate. Job ID: [id number]
[2019-05-01] MEDS: Atorvastatin Calcium 20 MG TAB PO SCH (21:29)
[2019-05-02] MEDS: Lidocaine Patch Removal 1 EACH TOP SCH (03:16)
[2019-05-02] MEDS: HYDROcodone/Acetaminophen 5/325 mg Tablet PO PRN (05:40)
[2019-05-02 07:34] LABS: #Eosinphils 0.3 thou/uL (0.0-0.7); #Lymphocytes 1.3 thou/uL (1.20-3.40); #Monocytes 1.1 thou/uL (0.11-0.59); #Neutrophils 10.9 thou/uL (1.40-6.50); %Basophils 0.3 % (0.0-1.0); %Eosinophils 1.9 % (0.0-10.0); %Lymphocytes 9.3 % (21.0-51.0); %Neutrophils 80.5 % (42.0-75.0); Hemoglobin 9.8 g/dL (12.0-16.0); Mean Corpuscular HGB CONC 31.7 g/dL (32.0-36.0); Platelet Count 398 thou/uL (130-400); RBC Distribution Width 13.9 % (11.5-14.5); Red Blood Cell (RBC) Count 3.08 mill/uL (4.20-5.40); White Blood Cell (WBC) Count 13.6 thou/uL (4.8-10.8)
[2019-05-02 07:56] LABS: Anion Gap 14 mmol/L (10-20); BUN (Urea Nitrogen) 18 mg/dL (9.8-20.1); Calc. Creatinine Clearance 31 mL/min (70-130); Calcium 9.5 mg/dL (7.8-10.44); Carbon Dioxide 27 mmol/L (22-29); Chloride 97 mmol/L (98-107); Estimated GFR-MDRD 16; Glucose 86 mg/dL (70-105); Sodium 134 mmol/L (136-145)
[2019-05-02] MEDS: HYDROcodone/Acetaminophen 7.5/325 mg Tablet PO PRN ×3 (10:06→22:55)
[2019-05-02] MEDS: Ondansetron PF 4 MG/2 ML Vial IVP PRN (10:06)
[2019-05-02] MEDS: Sevelamer Carbonate 800 MG TAB PO SCH ×3 (11:18→14:22)
[2019-05-02] MEDS: Bisacodyl 5 MG TAB PO SCH (11:18)
[2019-05-02] MEDS: Ferrous Sulfate 325 MG TAB PO SCH ×2 (11:18→20:26)
[2019-05-02] MEDS: Gemfibrozil 600 MG TAB PO SCH (11:19)
[2019-05-02] MEDS: HumuLIN 70/30 (300 UNITS/3 ML VIAL) SC SCH ×2 (11:19→20:26)
[2019-05-02] MEDS: Aspirin 81 mg Enteric Coated Tablet PO SCH (11:19)
[2019-05-02] MEDS: Polyethylene Glycol 3350 17 GM Packet PO SCH (11:20)
--- NOTE | 2019-05-02 11:49 | PRG ---
DATE OF SERVICE: 05/02/2019 SUBJECTIVE: A 59-year-old female, being seen for end-stage renal disease. The patient denied nausea, vomiting, or chest pain. OBJECTIVE: CONSTITUTIONAL: The patient is awake and alert. VITAL SIGNS: Pulse 75, breathing 16, blood pressure 134/76. GENERAL APPEARANCE AND MENTAL STATUS: Fair. HEAD/NECK: Normocephalic. Atraumatic. EYES: EOMI. No deformity. EARS: Clear. No ulcers. NOSE: Intact. No lesions. MOUTH: Clear. No discharge. THROAT: Clear. No exudate. LUNGS: Clear. No crackles. CARDIAC: S1, S2. No rub. ABDOMEN: Benign. Bowel sounds positive. GENITALIA/RECTUM: Weeks absent. BACK/EXTREMITIES: Edema 0+. NEUROLOGICAL: Alert and motor intact. SKIN: LYMPHATICS: LABORATORY DATA: Reviewed. ASSESSMENT AND PLAN: 1. Stage 6 chronic kidney disease, continue hemodialysis. 2. Hypertension, stable. 3. Anemia, stable. 4. Medication based on GFR, appropriate. Job ID: [id number]
[2019-05-02] MEDS: cloNIDine 0.1 MG TAB PO SCH ×2 (12:17→20:26)
[2019-05-02] MEDS: Floranex Packet PO SCH (12:17)
[2019-05-02] MEDS: Amlodipine 10 MG TAB PO SCH (12:17)
[2019-05-02] MEDS: Famotidine 20 MG TAB PO SCH (12:17)
[2019-05-02] MEDS: Metoprolol Tartrate 25 MG TAB PO SCH ×2 (12:18→20:26)
[2019-05-02] MEDS: Heparin 5,000 UNITS/ML VIAL SC SCH ×3 (12:18→20:26)
[2019-05-02] MEDS: Lidocaine 5% Patch TD SCH (14:16)
--- NOTE | 2019-05-02 14:51 | PDOC.HOSPP ---
- Subjective Encounter Date: 05/02/19 Encounter Time: 12:10 Subjective: Patient had some worsening pain this morning. No N/V. Has good BMs daily. No fever or chills. - Objective Vital Signs & Weight: Vital Signs (12 hours) Temp Pulse Resp BP BP Pulse Ox 05/02/19 12:17 69 134/78 05/02/19 08:00 93 L 05/02/19 07:44 97.8 F 69 18 164/75 H 91 L Weight Admit Weight 201 lb Weight 208 lb 1.6 oz I&O: 05/01/19 05/02/19 05/03/19 06:59 06:59 06:59 Intake Total 610 1920 Balance 610 1920 Result Diagrams: 05/02/19 06:45 05/02/19 06:45 Additional Labs: Accuchecks 05/02/19 05/02/19 05/01/19 11:55 04:44 19:55 POC Glucose 139 H 98 213 H 05/01/19 16:37 POC Glucose 138 H Hospitalist ROS - Medication Medications: Active Medications Generic Name Dose Route Start Last Admin Trade Name Freq PRN Reason Stop Dose Admin Acetaminophen 1,000 mg 04/15/19 15:32 04/22/19 22:25 Tylenol PO 1,000 mg Q6H PRN Administration Moderate to Severe Pain (6-10) Hydrocodone Bitart/Acetaminophen 1 tab 05/02/19 09:42 05/02/19 10:06 [place] 7.5/325 PO 1 tab Q6H PRN Administration Moderate to Severe Pain (6-10) Acidophilus 1 gm 05/02/19 09:00 05/02/19 12:17 Floranex PO Not Given DAILY [facility] Amlodipine Besylate 10 mg 04/30/19 09:00 05/02/19 12:17 Norvasc PO Not Given DAILY [facility] Aspirin 81 mg 04/18/19 09:00 05/02/19 11:19 Ecotrin PO Not Given DAILY [facility] Atorvastatin Calcium 20 mg 04/14/19 21:00 05/01/19 21:29 Lipitor PO 20 mg HS [facility] Administration Bisacodyl 10 mg 04/30/19 09:00 05/02/19 11:18 Dulcolax PO Not Given DAILY [facility] Clonidine 0.1 mg 04/14/19 21:00 05/02/19 12:17 Catapres PO Not Given BID [facility] Famotidine 20 mg 04/16/19 09:00 05/02/19 12:17 Pepcid PO Not Given DAILY [facility] Ferrous Sulfate 325 mg 04/17/19 21:00 05/02/19 11:18 Feosol PO Not Given BID [facility] Gemfibrozil 600 mg 04/15/19 09:00 05/02/19 11:19 Lopid PO Not Given DAILY [facility] Heparin Sodium (Porcine) 5,000 units 04/13/19 21:00 05/02/19 12:18 Heparin SC Not Given TID [facility] Cefazolin Sodium 3 gm/ Sodium 100 mls @ 200 mls/hr 04/27/19 12:00 05/01/19 13 :22 Chloride IVPB 100 mls MoWeFr [facility] Administration Insulin Human Isoph/Insulin Regular 20 units 05/01/19 21:00 05/02/19 11:19 Humulin 70/30 SC Not Given BID [facility] Insulin Human Regular 0 units 04/15/19 21:47 04/30/19 04:44 Humulin R SC 4 unit .MODERATE SLIDING SC PRN Administration Moderate Correctional Scale Insulin Human Regular 0 units 04/15/19 21:47 04/25/19 20:23 Humulin R SC 2 unit .BEDTIME SLIDING SC PRN Administration Bedtime Correctional Scale Levofloxacin 250 mg 04/25/19 14:00 05/02/19 14:15 Levaquin PO 250 mg 1400 [facility] Administration Lidocaine 1 patch 04/29/19 14:00 05/02/19 14:16 Lidoderm 5% Patch TD 1 patch 1400 [facility] Administration Metoprolol Tartrate 25 mg 04/14/19 21:00 05/02/19 12:18 Lopressor PO Not Given BID [facility] Miscellaneous Medication 1 each 04/30/19 02:00 05/02/19 03:16 Lidocaine Patch Removal TOP Not Given 0200 [facility] Ondansetron HCl 4 mg 04/14/19 19:03 05/02/19 10:06 Zofran IVP 4 mg Q6H PRN Administration Nausea/Vomiting Polyethylene Glycol 17 gm 04/25/19 09:00 05/02/19 11:20 Miralax PO Not Given DAILY [facility] Sertraline HCl 100 mg 04/17/19 21:00 05/02/19 12:18 Zoloft PO Not Given BID [facility] Sevelamer Carbonate 1,600 mg 04/23/19 12:00 05/02/19 12:18 Renvela PO Not Given TID-WM [facility] Sodium Chloride 10 ml 04/19/19 21:00 05/02/19 11:20 Flush - Normal Saline IVF Not Given Q12HR [facility] Sodium Chloride 10 ml 04/19/19 19:26 04/29/19 14:11 Flush - Normal Saline IVF 10 ml PRN PRN Administration Saline Flush - Exam General Appearance: NAD, awake alert ENT: normocephalic atraumatic, no oropharyngeal lesions, moist mucosa Neck: supple, symmetric, no JVD, no thyromegaly Heart: RRR, no murmur, no gallops, no rubs, normal peripheral pulses Respiratory: CTAB, no wheezes, no rales, no ronchi Hosp A/P (1) MSSA bacteremia Code(s): R78.81 - BACTEREMIA Status: Acute (2) Osteomyelitis Code(s): M86.9 - OSTEOMYELITIS, UNSPECIFIED Status: Acute Qualifiers: Osteomyelitis type: unspecified type Osteomyelitis location: other site Qualified Code(s): M86.9 - Osteomyelitis, unspecified (3) DM2 (diabetes mellitus, type 2) Status: Chronic Qualifiers: Diabetes mellitus chief ii dispatcher insulin use: with custodial use Diabetes mellitus complication status: with kidney complications Diabetes mellitus complication detail: with chronic kidney disease Chronic kidney disease stage : on chronic dialysis Qualified Code(s): E11.22 - Type 2 diabetes mellitus with diabetic chronic kidney disease; N18.6 - End stage renal disease; Z79.4 - local intermodal truck driver (current) use of insulin; Z99.2 - Dependence on renal dialysis (4) Hypertension Code(s): I10 - ESSENTIAL (PRIMARY) HYPERTENSION Status: Chronic Qualifiers: Hypertension type: essential hypertension Qualified Code(s): I10 - Essential (primary) hypertension (5) ESRD on hemodialysis Code(s): N18.6 - END STAGE RENAL DISEASE; Z99.2 - DEPENDENCE ON RENAL DIALYSIS Status: Chronic - Plan Hosp A/P (1) MSSA bacteremia Repeat Blood cultures negative for MSSA so far ID on board. On IV ABX. Continue ancef and levaquin as per ID Repeat blood cultures - 1/2 positive for contaminant strep (2) Osteomyelitis Repeat MRI spine revealed worsening osteomyelitis and discitis. No surgical intervention needed per neurosurgery. ESR is 99 and CRP at 15. ID on board. Improving leukocytosis Continue ancef and levaquin. Pain control with increased dose of norco (3) DM2 (diabetes mellitus, type 2) HA1C 6.3 Continue NPH 70/30 insulin BID dosing and monitor sugars Adjust meds as needed Continue diabetic diet and SSI (4) Hypertension Controlled BP Continue current meds (5) ESRD on hemodialysis Renal on board Dialysis per nephrology with antibiotics 6. s/p AV fistula surgery - Patient receiving dialysis via right dialysis catheter
[2019-05-02] MEDS: Atorvastatin Calcium 20 MG TAB PO SCH (20:26)
[2019-05-03] MEDS: Lidocaine Patch Removal 1 EACH TOP SCH (02:22)
[2019-05-03] MEDS: Acetaminophen 500 MG TAB PO PRN (03:22)
[2019-05-03 05:51] LABS: #Eosinphils 0.3 thou/uL (0.0-0.7); #Lymphocytes 1.1 thou/uL (1.20-3.40); #Monocytes 1.4 thou/uL (0.11-0.59); #Neutrophils 10.2 thou/uL (1.40-6.50); %Basophils 0.3 % (0.0-1.0); %Eosinophils 2.1 % (0.0-10.0); %Lymphocytes 8.4 % (21.0-51.0); %Monocytes 10.5 % (0.0-10.0); %Neutrophils 78.8 % (42.0-75.0); Hemoglobin 8.7 g/dL (12.0-16.0); Mean Corpuscular HGB CONC 32.1 g/dL (32.0-36.0); Mean Corpuscular Hemoglobin 32.4 pg (27.0-31.0); Mean Platelet Volume 7.4 fL (7.4-10.4); Platelet Count 288 thou/uL (130-400); RBC Distribution Width 13.7 % (11.5-14.5); Red Blood Cell (RBC) Count 2.69 mill/uL (4.20-5.40); White Blood Cell (WBC) Count 12.9 thou/uL (4.8-10.8)
[2019-05-03 06:08] LABS: Anion Gap 12 mmol/L (10-20); BUN (Urea Nitrogen) 28 mg/dL (9.8-20.1); Calc. Creatinine Clearance 22 mL/min (70-130); Carbon Dioxide 25 mmol/L (22-29); Chloride 100 mmol/L (98-107); Estimated GFR-MDRD 11; Glucose 89 mg/dL (70-105); Potassium 4.2 mmol/L (3.5-5.1); Sodium 133 mmol/L (136-145)
[2019-05-03] MEDS: HYDROcodone/Acetaminophen 7.5/325 mg Tablet PO PRN ×3 (07:10→20:46)
[2019-05-03] MEDS: Sevelamer Carbonate 800 MG TAB PO SCH ×3 (08:56→16:17)
[2019-05-03] MEDS: Floranex Packet PO SCH (08:57)
[2019-05-03] MEDS: Polyethylene Glycol 3350 17 GM Packet PO SCH (08:57)
[2019-05-03] MEDS: Bisacodyl 5 MG TAB PO SCH (08:58)
[2019-05-03] MEDS: cloNIDine 0.1 MG TAB PO SCH ×2 (08:58→20:47)
[2019-05-03] MEDS: Aspirin 81 mg Enteric Coated Tablet PO SCH (08:58)
[2019-05-03] MEDS: Famotidine 20 MG TAB PO SCH (08:58)
[2019-05-03] MEDS: Amlodipine 10 MG TAB PO SCH (08:58)
[2019-05-03] MEDS: Metoprolol Tartrate 25 MG TAB PO SCH ×2 (08:59→20:48)
[2019-05-03] MEDS: Gemfibrozil 600 MG TAB PO SCH (08:59)
[2019-05-03] MEDS: Heparin 5,000 UNITS/ML VIAL SC SCH ×3 (08:59→20:51)
[2019-05-03] MEDS: HumuLIN 70/30 (300 UNITS/3 ML VIAL) SC SCH ×2 (08:59→20:51)
[2019-05-03] MEDS: Ferrous Sulfate 325 MG TAB PO SCH ×2 (08:59→20:48)
--- NOTE | 2019-05-03 12:00 | PRG ---
DATE OF SERVICE: 05/03/2019 SUBJECTIVE: Sitting up by the bedside. Awake, alert, and oriented. Still with moderate pain in the lower C-spine and midthoracic spine area and radiculopathic pain around the upper abdomen. About the same as before. Overall, feels better. Able to walk around. Gets tired easily. No dyspnea. No headaches. No abdominal pain or diarrhea. No genitourinary symptoms. OBJECTIVE: VITAL SIGNS: She has been afebrile. Other vital signs with some elevation in systolic and diastolic blood pressure. LUNGS: Clear. HEART: S1 and S2. Regular rate. ABDOMEN: Soft. Not distended or tender. MUSCULOSKELETAL: Moderate tenderness in the lower C-spine and midthoracic spine area. EXTREMITIES: Moves extremities equally. Plantar responses are flexor. LABORATORY DATA: White cell count is down to 12.9, hemoglobin 8.7, platelets 288, 78% neutrophils with continuing improvement. Chemistries, not remarkable. No new microbiology information of note. 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 The Streptococcus identified is likely a contaminant. The plan now is to discharge her on the current regimen with the end date as defined to the case filler. Follow up MRI in about 2 weeks to see how it is doing, and then repeat again at the end of the treatment. Some patients still develop instability of the involved areas with worsening pain, and in that case, she would need a neurosurgical intervention, but most of the cases do well without intervention and just medical therapy. The endpoint here would be improvement in the pain in all 3 levels as well as continuing improvement in the white cell count and normalization of C-reactive protein. Job ID: [id number]
[2019-05-03] MEDS: Lidocaine 5% Patch TD SCH (12:51)
--- NOTE | 2019-05-03 13:27 | PRG ---
DATE OF SERVICE: 05/03/2019 SUBJECTIVE: This is a 59-year-old female, being seen for end-stage renal disease. The patient denies any nausea, vomiting, or chest pain. OBJECTIVE: GENERAL: The patient is awake and alert. VITAL SIGNS: Afebrile, pulse 75, breathing 16, blood pressure was 147/70. GENERAL APPEARANCE AND MENTAL STATUS: Fair. HEAD/NECK: Normocephalic. Atraumatic. EYES: EOMI. No deformity. EARS: Clear. No ulcers. NOSE: Intact. No lesions. MOUTH: Clear. No discharge. THROAT: Clear. No exudate. LUNGS: Clear. No crackles. CARDIAC: S1, S2. No rub. ABDOMEN: Benign. Bowel sounds positive. GENITALIA/RECTUM: Weeks absent. BACK/EXTREMITIES: Edema 0+. NEUROLOGICAL: Alert and motor intact. SKIN: LYMPHATICS: LABORATORY DATA: Reviewed. ASSESSMENT AND PLAN: 1. Stage 6 chronic kidney disease. Continue hemodialysis. 2. Hypertension, stable. 3. . Job ID: [id number]
--- NOTE | 2019-05-03 16:01 | PDOC.HOSPP ---
- Subjective Encounter Date: 05/03/19 Encounter Time: 16:00 Subjective: f/u for MSSA osteomyelitis on Ancef/Levaquin. No new complaints currently. - Objective Vital Signs & Weight: Vital Signs (12 hours) Temp Pulse Resp BP BP BP Pulse Ox 05/03/19 12:18 98.9 F 83 20 147/70 H 05/03/19 08:58 79 175/106 H 05/03/19 08:00 99 05/03/19 07:27 98.7 F 80 24 H 175/106 H 05/03/19 05:00 150/76 H 05/03/19 04:54 98.1 F 76 20 172/84 H 97 Weight Admit Weight 201 lb Weight 208 lb 1.6 oz I&O: 05/02/19 05/03/19 05/04/19 06:59 06:59 06:59 Intake Total 1919 1310 Balance 1919 1310 Result Diagrams: 05/03/19 05:19 05/03/19 05:19 Additional Labs: Accuchecks 05/03/19 05/03/19 05/02/19 11:11 03:57 19:51 POC Glucose 81 118 H 220 H 05/02/19 15:50 POC Glucose 174 H Microbiology 04/29/19 13:57 Venous blood - Right Hand Blood Culture - Final Alpha-Strep, not S. pneumoniae 04/19/19 15:33 Stool C. difficile GDH Antigen & Toxins - Final 04/13/19 22:31 Venous blood - Right Hand Blood Culture - Final Staphylococcus aureus 04/13/19 22:24 Venous blood - Right Hand Blood Culture - Final Staphylococcus aureus 04/13/19 09:18 Nasopharyngeal swab Influenza Types A,B Direct EIA - Final 05/01/19 05:21 Venous blood - Left Hand Blood Culture - Preliminary NO GROWTH AT 48 HOURS 05/01/19 05:19 Venous blood - Right Hand Blood Culture - Preliminary NO GROWTH AT 48 HOURS 04/29/19 13:57 Venous blood - Right Hand Blood Culture - Preliminary NO GROWTH AT 48 HOURS Laboratory Tests 04/29/19 04/29/19 04/30/19 08:05 08:05 05:09 WBC 21.8 H Hgb 8.3 L Creatinine 4.51 H 3.29 H 04/30/19 05/01/19 05/01/19 05:09 05:21 05:21 WBC 19.4 H 14.7 H Hgb 8.2 L 9.7 L Creatinine 4.14 H 05/02/19 05/02/19 06:45 06:45 WBC 13.6 H Hgb 9.8 L Creatinine 2.98 H Hospitalist ROS - Medication Medications: Active Medications Generic Name Dose Route Start Last Admin Trade Name Freq PRN Reason Stop Dose Admin Acetaminophen 1,000 mg 04/15/19 15:32 05/03/19 03:22 Tylenol PO 1,000 mg Q6H PRN Administration Moderate to Severe Pain (6-10) Hydrocodone Bitart/Acetaminophen 1 tab 05/02/19 09:42 05/03/19 12:49 [place] 7.5/325 PO 1 tab Q6H PRN Administration Moderate to Severe Pain (6-10) Acidophilus 1 gm 05/02/19 09:00 05/03/19 08:57 Floranex PO 1 gm DAILY [facility] Administration Amlodipine Besylate 10 mg 04/30/19 09:00 05/03/19 08:58 Norvasc PO 10 mg DAILY [facility] Administration Aspirin 81 mg 04/18/19 09:00 05/03/19 08:58 Ecotrin PO 81 mg DAILY [facility] Administration Atorvastatin Calcium 20 mg 04/14/19 21:00 05/02/19 20:26 Lipitor PO 20 mg HS [facility] Administration Bisacodyl 10 mg 04/30/19 09:00 05/03/19 08:58 Dulcolax PO 10 mg DAILY [facility] Administration Clonidine 0.1 mg 04/14/19 21:00 05/03/19 08:58 Catapres PO 0.1 mg BID [facility] Administration Famotidine 20 mg 04/16/19 09:00 05/03/19 08:58 Pepcid PO 20 mg DAILY [facility] Administration Ferrous Sulfate 325 mg 04/17/19 21:00 05/03/19 08:59 Feosol PO 325 mg BID [facility] Administration Gemfibrozil 600 mg 04/15/19 09:00 05/03/19 08:59 Lopid PO 600 mg DAILY [facility] Administration Heparin Sodium (Porcine) 5,000 units 04/13/19 21:00 05/03/19 08:59 Heparin SC 5,000 units TID [facility] Administration Cefazolin Sodium 3 gm/ Sodium 100 mls @ 200 mls/hr 04/27/19 12:00 05/01/19 13 :22 Chloride IVPB 100 mls MoWeFr [facility] Administration Insulin Human Isoph/Insulin Regular 20 units 05/01/19 21:00 05/03/19 08:59 Humulin 70/30 SC 20 unit BID [facility] Administration Insulin Human Regular 0 units 04/15/19 21:47 04/30/19 04:44 Humulin R SC 4 unit .MODERATE SLIDING SC PRN Administration Moderate Correctional Scale Insulin Human Regular 0 units 04/15/19 21:47 04/25/19 20:23 Humulin R SC 2 unit .BEDTIME SLIDING SC PRN Administration Bedtime Correctional Scale Levofloxacin 250 mg 04/25/19 14:00 05/03/19 12:51 Levaquin PO 250 mg 1400 [facility] Administration Lidocaine 1 patch 04/29/19 14:00 05/03/19 12:51 Lidoderm 5% Patch TD 1 patch 1400 [facility] Administration Metoprolol Tartrate 25 mg 04/14/19 21:00 05/03/19 08:59 Lopressor PO 25 mg BID [facility] Administration Miscellaneous Medication 1 each 04/30/19 02:00 05/03/19 02:22 Lidocaine Patch Removal TOP Not Given 0200 [facility] Ondansetron HCl 4 mg 04/14/19 19:03 05/02/19 10:06 Zofran IVP 4 mg Q6H PRN Administration Nausea/Vomiting Polyethylene Glycol 17 gm 04/25/19 09:00 05/03/19 08:57 Miralax PO Not Given DAILY [facility] Sertraline HCl 100 mg 04/17/19 21:00 05/03/19 08:59 Zoloft PO 100 mg BID [facility] Administration Sevelamer Carbonate 1,600 mg 04/23/19 12:00 05/03/19 12:05 Renvela PO 1,600 mg TID-WM [facility] Administration Sodium Chloride 10 ml 04/19/19 21:00 05/03/19 09:00 Flush - Normal Saline IVF 10 ml Q12HR [facility] Administration Sodium Chloride 10 ml 04/19/19 19:26 04/29/19 14:11 Flush - Normal Saline IVF 10 ml PRN PRN Administration Saline Flush - Exam General Appearance: NAD, awake alert Eye: PERRL, anicteric sclera ENT: normocephalic atraumatic, no oropharyngeal lesions Neck: supple, symmetric, no JVD, no thyromegaly Heart: RRR, no murmur, no gallops, no rubs, normal peripheral pulses Respiratory: CTAB, no wheezes, no rales, no ronchi Gastrointestinal: soft, non-tender, non-distended, normal bowel sounds Extremities: no cyanosis, no clubbing, no edema Skin: normal turgor, no lesions Neurological: cranial nerve grossly intact, no new deficit Musculoskeletal: normal tone, generalized weakness Psychiatric: normal affect, A&O x 3 Hosp A/P (1) MSSA bacteremia Code(s): R78.81 - BACTEREMIA Status: Acute Plan: Plan for Ancef/Levaquin after d/c (2) Osteomyelitis Code(s): M86.9 - OSTEOMYELITIS, UNSPECIFIED Status: Acute Qualifiers: Osteomyelitis type: unspecified type Osteomyelitis location: other site Qualified Code(s): M86.9 - Osteomyelitis, unspecified Plan: See #1 above (3) DM2 (diabetes mellitus, type 2) Status: Chronic Qualifiers: Diabetes mellitus tank terminal gauger insulin use: with retirement use Diabetes mellitus complication status: with kidney complications Diabetes mellitus complication detail: with chronic kidney disease Chronic kidney disease stage : on chronic dialysis Qualified Code(s): E11.22 - Type 2 diabetes mellitus with diabetic chronic kidney disease; N18.6 - End stage renal disease; Z79.4 - termite exterminator helper (current) use of insulin; Z99.2 - Dependence on renal dialysis Plan: ISS, continue Humulin 70/30, serial accuchecks, Nepro/ADA (4) ESRD on hemodialysis Code(s): N18.6 - END STAGE RENAL DISEASE; Z99.2 - DEPENDENCE ON RENAL DIALYSIS Status: Chronic Plan: HD per Renal service (5) Hypertension Code(s): I10 - ESSENTIAL (PRIMARY) HYPERTENSION Status: Chronic Qualifiers: Hypertension type: essential hypertension Qualified Code(s): I10 - Essential (primary) hypertension Plan: Labile, titrate BP regimen for optimal response. - Plan continue antibiotics, PT/OT, social services assistant, out of bed/ambulate Stable currently HD per Renal service Continue Ancef/Levaquin PT/OT for mobilization CM for SNF options, family prefers [place]
[2019-05-03] MEDS: Atorvastatin Calcium 20 MG TAB PO SCH (20:48)
[2019-05-03] MEDS ORDERED: oxyCODONE 5 MG TAB PO PRN (22:51)
[2019-05-04] MEDS: Lidocaine Patch Removal 1 EACH TOP SCH (02:38)
[2019-05-04] MEDS ORDERED: HYDROcodone/Acetaminophen 7.5/325 mg Tablet PO PRN (04:01)
[2019-05-04] MEDS ORDERED: oxyCODONE 5 MG TAB PO PRN (04:02)
[2019-05-04] MEDS: Sevelamer Carbonate 800 MG TAB PO SCH ×3 (08:00→18:10)
[2019-05-04] MEDS: HumuLIN 70/30 (300 UNITS/3 ML VIAL) SC SCH ×2 (09:00→21:21)
[2019-05-04] MEDS: Heparin 5,000 UNITS/ML VIAL SC SCH ×3 (09:00→21:21)
[2019-05-04] MEDS ORDERED: fentaNYL Citrate/PF 2,000 MCG in Sodium Chloride 0.9% 60 ML IV PRN (09:07)
[2019-05-04] MEDS: Polyethylene Glycol 3350 17 GM Packet PO SCH (11:51)
[2019-05-04] MEDS: Gemfibrozil 600 MG TAB PO SCH (11:52)
[2019-05-04] MEDS: Aspirin 81 mg Enteric Coated Tablet PO SCH (11:52)
[2019-05-04] MEDS: Ferrous Sulfate 325 MG TAB PO SCH ×2 (11:52→21:20)
[2019-05-04] MEDS: Metoprolol Tartrate 25 MG TAB PO SCH ×2 (11:52→21:20)
[2019-05-04] MEDS: Amlodipine 10 MG TAB PO SCH (11:52)
[2019-05-04] MEDS: Acetaminophen 500 MG TAB PO PRN (11:52)
[2019-05-04] MEDS: cloNIDine 0.1 MG TAB PO SCH ×2 (11:53→21:20)
[2019-05-04] MEDS: Floranex Packet PO SCH (11:53)
[2019-05-04] MEDS: Bisacodyl 5 MG TAB PO SCH (11:53)
[2019-05-04] MEDS: Famotidine 20 MG TAB PO SCH (11:54)
[2019-05-04] MEDS: HYDROcodone/Acetaminophen 7.5/325 mg Tablet PO PRN ×2 (12:15→21:30)
[2019-05-04] MEDS: CEFAZOLIN 3 GM in Sodium Chloride 0.9% 100 ML IVPB SCH (12:16)
--- NOTE | 2019-05-04 13:50 | PRG ---
DATE OF SERVICE: 05/04/2019 SUBJECTIVE: A 59-year-old female is being seen for end-stage renal disease. The patient denies any nausea, vomiting, or chest pain. OBJECTIVE: GENERAL: The patient is awake and alert. VITAL SIGNS: Afebrile, pulse 90, breathing 16, blood pressure 113/57. GENERAL APPEARANCE AND MENTAL STATUS: Fair. HEAD/NECK: Normocephalic. Atraumatic. EYES: EOMI. No deformity. EARS: Clear. No ulcers. NOSE: Intact. No lesions. MOUTH: Clear. No discharge. THROAT: Clear. No exudate. LUNGS: Clear. No crackles. CARDIAC: S1, S2. No rub. ABDOMEN: Benign. Bowel sounds positive. GENITALIA/RECTUM: Weeks absent. BACK/EXTREMITIES: Edema 0+. NEUROLOGICAL: Alert and motor intact. SKIN: LYMPHATICS: LABORATORY DATA: Reviewed. ASSESSMENT: 1. Stage 6 chronic kidney disease. Continue dialysis. 2. Hypertension, stable. 3. Anemia, stable. 4. Medication based on GFR appropriate. Job ID: [id number]
[2019-05-04] MEDS ORDERED: Heparin 10,000 UNITS/ 10 ML VIAL ONE (15:51)
[2019-05-04] MEDS: Lidocaine 5% Patch TD SCH (16:26)
[2019-05-04] MEDS: oxyCODONE 5 MG TAB PO PRN ×2 (18:06→23:57)
[2019-05-04] MEDS: Insulin Regular 300 UNITS/3 ML VIAL SC PRN (18:10)
--- NOTE | 2019-05-04 19:03 | PDOC.HOSPP ---
- Subjective Encounter Date: 05/04/19 Encounter Time: 18:45 Subjective: f/u for C-/T-spine osteomyelitis/diskitis on Ancef/Levaquin. Pain increased today but improved currently after dosing of [place]/Oxycodone. - Objective Vital Signs & Weight: Vital Signs (12 hours) Temp Pulse Resp BP BP BP Pulse Ox 05/04/19 16:23 99.2 F 85 18 146/97 H 99 05/04/19 11:52 90 113/57 L 05/04/19 11:32 98.4 F 90 20 113/57 L 100 05/04/19 11:20 100 Weight Admit Weight 201 lb Weight 208 lb 1.6 oz I&O: 05/03/19 05/04/19 05/05/19 06:59 06:59 06:59 Intake Total 1310 1830 500 Balance 1310 1830 500 Result Diagrams: 05/03/19 05:19 05/03/19 05:19 Additional Labs: Accuchecks 05/04/19 05/04/19 05/04/19 16:16 11:51 04:23 POC Glucose 178 H 106 95 05/03/19 19:59 POC Glucose 154 H Microbiology 04/29/19 13:57 Venous blood - Right Hand Blood Culture - Final Alpha-Strep, not S. pneumoniae 04/19/19 15:33 Stool C. difficile GDH Antigen & Toxins - Final 04/13/19 22:31 Venous blood - Right Hand Blood Culture - Final Staphylococcus aureus 04/13/19 22:24 Venous blood - Right Hand Blood Culture - Final Staphylococcus aureus 04/13/19 09:18 Nasopharyngeal swab Influenza Types A,B Direct EIA - Final 05/01/19 05:21 Venous blood - Left Hand Blood Culture - Preliminary NO GROWTH AT 48 HOURS 05/01/19 05:19 Venous blood - Right Hand Blood Culture - Preliminary NO GROWTH AT 48 HOURS 04/29/19 13:57 Venous blood - Right Hand Blood Culture - Preliminary NO GROWTH AT 48 HOURS Laboratory Tests 04/29/19 04/29/19 04/30/19 08:05 08:05 05:09 WBC 21.8 H Hgb 8.3 L Creatinine 4.51 H 3.29 H 04/30/19 05/01/19 05/01/19 05:09 05:21 05:21 WBC 19.4 H 14.7 H Hgb 8.2 L 9.7 L Creatinine 4.14 H 05/02/19 05/02/19 06:45 06:45 WBC 13.6 H Hgb 9.8 L Creatinine 2.98 H Hospitalist ROS - Medication Medications: Active Medications Generic Name Dose Route Start Last Admin Trade Name Freq PRN Reason Stop Dose Admin Acetaminophen 1,000 mg 04/15/19 15:32 05/04/19 11:52 Tylenol PO 1,000 mg Q6H PRN Administration Moderate to Severe Pain (6-10) Hydrocodone Bitart/Acetaminophen 1 tab 05/04/19 12:05 05/04/19 12:15 [place] 7.5/325 PO 1 tab Q6H PRN Administration Pain Acidophilus 1 gm 05/02/19 09:00 05/04/19 11:53 Floranex PO 1 gm DAILY HOMERO Administration Amlodipine Besylate 10 mg 04/30/19 09:00 05/04/19 11:52 Norvasc PO 10 mg DAILY HOMERO Administration Aspirin 81 mg 04/18/19 09:00 05/04/19 11:52 Ecotrin PO 81 mg DAILY HOMERO Administration Atorvastatin Calcium 20 mg 04/14/19 21:00 05/03/19 20:48 Lipitor PO 20 mg HS HOMERO Administration Bisacodyl 10 mg 04/30/19 09:00 05/04/19 11:53 Dulcolax PO Not Given DAILY [facility] Clonidine 0.1 mg 04/14/19 21:00 05/04/19 11:53 Catapres PO Not Given BID [facility] Famotidine 20 mg 04/16/19 09:00 05/04/19 11:54 Pepcid PO 20 mg DAILY [facility] Administration Ferrous Sulfate 325 mg 04/17/19 21:00 05/04/19 11:52 Feosol PO 325 mg BID [facility]OMERO Administration Gemfibrozil 600 mg 04/15/19 09:00 05/04/19 11:52 Lopid PO 600 mg DAILY [facility] Administration Heparin Sodium (Porcine) 5,000 units 04/13/19 21:00 05/04/19 14:55 Heparin SC 5,000 units TID [facility]OMERO Administration Cefazolin Sodium 3 gm/ Sodium 100 mls @ 200 mls/hr 04/27/19 12:00 05/04/19 12 :16 Chloride IVPB 100 mls MoWeFr [facility]OMERO Administration Insulin Human Isoph/Insulin Regular 20 units 05/01/19 21:00 05/04/19 09:00 Humulin 70/30 SC Not Given BID [facility]OMERO Insulin Human Regular 0 units 04/15/19 21:47 05/04/19 18:10 Humulin R SC 2 unit .MODERATE SLIDING SC PRN Administration Moderate Correctional Scale Insulin Human Regular 0 units 04/15/19 21:47 04/25/19 20:23 Humulin R SC 2 unit .BEDTIME SLIDING SC PRN Administration Bedtime Correctional Scale Levofloxacin 250 mg 04/25/19 14:00 05/04/19 14:54 Levaquin PO 250 mg 1400 [facility] Administration Lidocaine 1 patch 04/29/19 14:00 05/04/19 16:26 Lidoderm 5% Patch TD 1 patch 1400 [facility]OMERO Administration Metoprolol Tartrate 25 mg 04/14/19 21:00 05/04/19 11:52 Lopressor PO 25 mg BID [facility]ERO Administration Miscellaneous Medication 1 each 04/30/19 02:00 05/04/19 02:38 Lidocaine Patch Removal TOP 1 each 0200 [facility]OMERO Administration Ondansetron HCl 4 mg 04/14/19 19:03 05/02/19 10:06 Zofran IVP 4 mg Q6H PRN Administration Nausea/Vomiting Oxycodone HCl 5 mg 05/04/19 12:05 05/04/19 18:06 Oxycodone Ir PO 5 mg Q6H PRN Administration BREAKTHROUGH PAIN Polyethylene Glycol 17 gm 04/25/19 09:00 05/04/19 11:51 Miralax PO 17 gm DAILY [facility] Administration Sertraline HCl 100 mg 04/17/19 21:00 05/04/19 11:52 Zoloft PO 100 mg BID [facility] Administration Sevelamer Carbonate 1,600 mg 04/23/19 12:00 05/04/19 18:10 Renvela PO 1,600 mg TID-WM [facility]OMERO Administration Sodium Chloride 10 ml 04/19/19 21:00 05/04/19 11:58 Flush - Normal Saline IVF 10 ml Q12HR [facility]OMERO Administration Sodium Chloride 10 ml 04/19/19 19:26 04/29/19 14:11 Flush - Normal Saline IVF 10 ml PRN PRN Administration Saline Flush - Exam General Appearance: awake alert Eye: PERRL, anicteric sclera ENT: normocephalic atraumatic, no oropharyngeal lesions Neck: supple, symmetric, no JVD, no thyromegaly Heart: RRR, no murmur, no gallops, no rubs Respiratory: CTAB, no wheezes, no rales, no ronchi Gastrointestinal: soft, non-tender, non-distended, normal bowel sounds Extremities: no cyanosis, no clubbing Skin: normal turgor Skin - other findings: R cheek edema/ecchymosis Neurological: cranial nerve grossly intact, no new deficit Musculoskeletal: normal tone, generalized weakness Psychiatric: A&O x 3, flat affect Hosp A/P (1) MSSA bacteremia Code(s): R78.81 - BACTEREMIA Status: Acute Plan: Continue Ancef/Levaquin (2) Osteomyelitis Code(s): M86.9 - OSTEOMYELITIS, UNSPECIFIED Status: Acute Qualifiers: Osteomyelitis type: unspecified type Osteomyelitis location: other site Qualified Code(s): M86.9 - Osteomyelitis, unspecified Plan: Continue tx as outlined in #1, pain control as clinically indicated (3) DM2 (diabetes mellitus, type 2) Status: Chronic Qualifiers: Diabetes mellitus mcc insulin use: with buttermaker helper use Diabetes mellitus complication status: with kidney complications Diabetes mellitus complication detail: with chronic kidney disease Chronic kidney disease stage : on chronic dialysis Qualified Code(s): E11.22 - Type 2 diabetes mellitus with diabetic chronic kidney disease; N18.6 - End stage renal disease; Z79.4 - FDC (current) use of insulin; Z99.2 - Dependence on renal dialysis Plan: ISS, ADA (4) ESRD on hemodialysis Code(s): N18.6 - END STAGE RENAL DISEASE; Z99.2 - DEPENDENCE ON RENAL DIALYSIS Status: Chronic Plan: HD per Renal service (5) Hypertension Code(s): I10 - ESSENTIAL (PRIMARY) HYPERTENSION Status: Chronic Qualifiers: Hypertension type: essential hypertension Qualified Code(s): I10 - Essential (primary) hypertension - Plan plan discussed w/ family, continue antibiotics, PT/OT, family welfare social work professor, out of bed/ambulate, DVT proph w/SCDs Stable currently HD per Renal service Continue Ancef/Levaquin PT/OT for mobilization Likely d/c to [place] in 24h
[2019-05-04] MEDS: Atorvastatin Calcium 20 MG TAB PO SCH (21:20)
[2019-05-05] MEDS: Lidocaine Patch Removal 1 EACH TOP SCH (01:06)
[2019-05-05] MEDS: HYDROcodone/Acetaminophen 7.5/325 mg Tablet PO PRN ×3 (03:31→23:43)
[2019-05-05] MEDS: oxyCODONE 5 MG TAB PO PRN ×2 (06:36→19:54)
[2019-05-05] MEDS: Ferrous Sulfate 325 MG TAB PO SCH ×2 (07:57→20:01)
[2019-05-05] MEDS: Metoprolol Tartrate 25 MG TAB PO SCH ×2 (07:57→20:01)
[2019-05-05] MEDS: cloNIDine 0.1 MG TAB PO SCH ×2 (07:58→20:01)
[2019-05-05] MEDS: Aspirin 81 mg Enteric Coated Tablet PO SCH (07:58)
[2019-05-05] MEDS: Gemfibrozil 600 MG TAB PO SCH (07:58)
[2019-05-05] MEDS: Acetaminophen 500 MG TAB PO PRN (07:58)
[2019-05-05] MEDS: Amlodipine 10 MG TAB PO SCH (07:58)
[2019-05-05] MEDS: Famotidine 20 MG TAB PO SCH (07:58)
[2019-05-05] MEDS: Heparin 5,000 UNITS/ML VIAL SC SCH ×3 (09:02→20:02)
[2019-05-05] MEDS: Polyethylene Glycol 3350 17 GM Packet PO SCH (09:03)
[2019-05-05] MEDS: HumuLIN 70/30 (300 UNITS/3 ML VIAL) SC SCH ×2 (09:03→20:05)
[2019-05-05] MEDS: Sevelamer Carbonate 800 MG TAB PO SCH ×3 (09:03→18:59)
[2019-05-05] MEDS: Bisacodyl 5 MG TAB PO SCH (09:03)
[2019-05-05] MEDS: Floranex Packet PO SCH (09:03)
--- NOTE | 2019-05-05 12:19 | PRG ---
DATE OF SERVICE: 05/05/2019 SUBJECTIVE: This 59-year-old lady, being seen for end-stage renal disease. The patient denies any nausea, vomiting, or chest pain. OBJECTIVE: GENERAL: The patient is awake and alert. VITAL SIGNS: Afebrile, pulse 75, breathing 16, and blood pressure 130/70. GENERAL APPEARANCE AND MENTAL STATUS: Fair. HEAD/NECK: Normocephalic. Atraumatic. EYES: EOMI. No deformity. EARS: Clear. No ulcers. NOSE: Intact. No lesions. MOUTH: Clear. No discharge. THROAT: Clear. No exudate. LUNGS: Clear. No crackles. CARDIAC: S1, S2. No rub. ABDOMEN: Benign. Bowel sounds positive. GENITALIA/RECTUM: Weeks absent. BACK/EXTREMITIES: Edema 0+. NEUROLOGICAL: Alert and motor intact. SKIN: LYMPHATICS: LABORATORY DATA: Reviewed. ASSESSMENT AND PLAN: 1. Stage 6 chronic kidney disease. Continue hemodialysis. 2. Hypertension, stable. 3. Anemia, stable. 4. Medication based on GFR appropriate. Job ID: [id number]
[2019-05-05] MEDS: Lidocaine 5% Patch TD SCH (15:02)
--- NOTE | 2019-05-05 19:59 | PDOC.HOSPP ---
- Subjective Encounter Date: 05/05/19 Encounter Time: 18:10 Subjective: f/u for ESRD with HD, C-/T-spine osteomyelitis on currenty tx with Ancef/ Levaquin. Pain better controlled today per family. - Objective Vital Signs & Weight: Vital Signs (12 hours) Temp Pulse Resp BP BP Pulse Ox 05/05/19 16:00 98.1 F 71 20 145/85 H 100 05/05/19 12:00 98.1 F 82 20 139/78 05/05/19 07:58 78 163/115 H Weight Admit Weight 201 lb Weight 208 lb 1.6 oz I&O: 05/04/19 05/05/19 05/06/19 06:59 06:59 06:59 Intake Total 1830 980 700 Output Total 2300 Balance 1830 -1320 700 Result Diagrams: 05/03/19 05:19 05/03/19 05:19 Additional Labs: Accuchecks 05/05/19 05/05/19 05/05/19 16:25 12:44 12:14 POC Glucose 102 81 83 05/05/19 05/04/19 05:24 20:44 POC Glucose 131 H 199 H Microbiology 04/29/19 13:57 Venous blood - Right Hand Blood Culture - Final Alpha-Strep, not S. pneumoniae 04/19/19 15:33 Stool C. difficile GDH Antigen & Toxins - Final 04/13/19 22:31 Venous blood - Right Hand Blood Culture - Final Staphylococcus aureus 04/13/19 22:24 Venous blood - Right Hand Blood Culture - Final Staphylococcus aureus 04/13/19 09:18 Nasopharyngeal swab Influenza Types A,B Direct EIA - Final 05/01/19 05:21 Venous blood - Left Hand Blood Culture - Preliminary NO GROWTH AT 48 HOURS 05/01/19 05:19 Venous blood - Right Hand Blood Culture - Preliminary NO GROWTH AT 48 HOURS 04/29/19 13:57 Venous blood - Right Hand Blood Culture - Preliminary NO GROWTH AT 48 HOURS Laboratory Tests 04/29/19 04/29/19 04/30/19 08:05 08:05 05:09 WBC 21.8 H Hgb 8.3 L Creatinine 4.51 H 3.29 H 04/30/19 05/01/19 05/01/19 05:09 05:21 05:21 WBC 19.4 H 14.7 H Hgb 8.2 L 9.7 L Creatinine 4.14 H 05/02/19 05/02/19 06:45 06:45 WBC 13.6 H Hgb 9.8 L Creatinine 2.98 H Hospitalist ROS - Medication Medications: Active Medications Generic Name Dose Route Start Last Admin Trade Name Freq PRN Reason Stop Dose Admin Acetaminophen 1,000 mg 04/15/19 15:32 05/05/19 07:58 Tylenol PO 1,000 mg Q6H PRN Administration Moderate to Severe Pain (6-10) Hydrocodone Bitart/Acetaminophen 1 tab 05/04/19 12:05 05/05/19 09:02 [place] 7.5/325 PO 1 tab Q6H PRN Administration Pain Acidophilus 1 gm 05/02/19 09:00 05/05/19 09:03 Floranex PO 1 gm DAILY [facility] Administration Amlodipine Besylate 10 mg 04/30/19 09:00 05/05/19 07:58 Norvasc PO 10 mg DAILY [facility] Administration Aspirin 81 mg 04/18/19 09:00 05/05/19 07:58 Ecotrin PO 81 mg DAILY [facility] Administration Atorvastatin Calcium 20 mg 04/14/19 21:00 05/04/19 21:20 Lipitor PO 20 mg HS [facility]OMERO Administration Bisacodyl 10 mg 04/30/19 09:00 05/05/19 09:03 Dulcolax PO 10 mg DAILY [facility] Administration Clonidine 0.1 mg 04/14/19 21:00 05/05/19 07:58 Catapres PO 0.1 mg BID HOMERO Administration Famotidine 20 mg 04/16/19 09:00 05/05/19 07:58 Pepcid PO 20 mg DAILY [facility] Administration Ferrous Sulfate 325 mg 04/17/19 21:00 05/05/19 07:57 Feosol PO 325 mg BID [facility] Administration Gemfibrozil 600 mg 04/15/19 09:00 05/05/19 07:58 Lopid PO 600 mg DAILY [facility] Administration Heparin Sodium (Porcine) 5,000 units 04/13/19 21:00 05/05/19 14:57 Heparin SC 5,000 units TID [facility]OMERO Administration Cefazolin Sodium 3 gm/ Sodium 100 mls @ 200 mls/hr 04/27/19 12:00 05/04/19 12 :16 Chloride IVPB 100 mls MoWeFr HOMERO Administration Insulin Human Isoph/Insulin Regular 20 units 05/01/19 21:00 05/05/19 09:03 Humulin 70/30 SC 20 unit BID [facility]OMERO Administration Insulin Human Regular 0 units 04/15/19 21:47 05/04/19 18:10 Humulin R SC 2 unit .MODERATE SLIDING SC PRN Administration Moderate Correctional Scale Insulin Human Regular 0 units 04/15/19 21:47 04/25/19 20:23 Humulin R SC 2 unit .BEDTIME SLIDING SC PRN Administration Bedtime Correctional Scale Levofloxacin 250 mg 04/25/19 14:00 05/05/19 14:55 Levaquin PO Not Given 1400 [facility] Lidocaine 1 patch 04/29/19 14:00 05/05/19 15:02 Lidoderm 5% Patch TD 1 patch 1400 [facility]ERO Administration Metoprolol Tartrate 25 mg 04/14/19 21:00 05/05/19 07:57 Lopressor PO 25 mg BID [facility]OMERO Administration Miscellaneous Medication 1 each 04/30/19 02:00 05/05/19 01:06 Lidocaine Patch Removal TOP Not Given 0200 [facility] Ondansetron HCl 4 mg 04/14/19 19:03 05/02/19 10:06 Zofran IVP 4 mg Q6H PRN Administration Nausea/Vomiting Oxycodone HCl 5 mg 05/04/19 12:05 05/05/19 19:54 Oxycodone Ir PO 5 mg Q6H PRN Administration BREAKTHROUGH PAIN Polyethylene Glycol 17 gm 04/25/19 09:00 05/05/19 09:03 Miralax PO Not Given DAILY [facility] Sertraline HCl 100 mg 04/17/19 21:00 05/05/19 07:57 Zoloft PO 100 mg BID [facility]OMERO Administration Sevelamer Carbonate 1,600 mg 04/23/19 12:00 05/05/19 18:59 Renvela PO 1,600 mg TID-WM [facility]OMERO Administration Sodium Chloride 10 ml 04/19/19 21:00 05/05/19 08:02 Flush - Normal Saline IVF 10 ml Q12HR HOMERO Administration Sodium Chloride 10 ml 04/19/19 19:26 04/29/19 14:11 Flush - Normal Saline IVF 10 ml PRN PRN Administration Saline Flush - Exam General Appearance: NAD, awake alert Eye: PERRL, anicteric sclera ENT: normocephalic atraumatic, no oropharyngeal lesions ENT - other findings: R cheek with eccyhmosis/edema Neck: supple, symmetric, no JVD, no thyromegaly Heart: RRR, no gallops, no rubs, normal peripheral pulses Respiratory: CTAB, no wheezes, no rales, no ronchi Gastrointestinal: soft, non-tender, non-distended, normal bowel sounds Gastrointestinal - other findings: obese Extremities: no cyanosis, no edema Skin: normal turgor, no lesions Neurological: cranial nerve grossly intact, no new deficit Musculoskeletal: normal tone, normal strength Psychiatric: A&O x 3, flat affect Hosp A/P (1) MSSA bacteremia Code(s): R78.81 - BACTEREMIA Status: Acute Plan: Continue Ancef/Levaquin, pain control as clinically indicated (2) Osteomyelitis Code(s): M86.9 - OSTEOMYELITIS, UNSPECIFIED Status: Acute Qualifiers: Osteomyelitis type: unspecified type Osteomyelitis location: other site Qualified Code(s): M86.9 - Osteomyelitis, unspecified Plan: See #1 (3) DM2 (diabetes mellitus, type 2) Status: Chronic Qualifiers: Diabetes mellitus custom tailor insulin use: with custom tailor use Diabetes mellitus complication status: with kidney complications Diabetes mellitus complication detail: with chronic kidney disease Chronic kidney disease stage : on chronic dialysis Qualified Code(s): E11.22 - Type 2 diabetes mellitus with diabetic chronic kidney disease; N18.6 - End stage renal disease; Z79.4 - halfway (current) use of insulin; Z99.2 - Dependence on renal dialysis Plan: ISS, ADA (4) ESRD on hemodialysis Code(s): N18.6 - END STAGE RENAL DISEASE; Z99.2 - DEPENDENCE ON RENAL DIALYSIS Status: Chronic (5) Hypertension Code(s): I10 - ESSENTIAL (PRIMARY) HYPERTENSION Status: Chronic Qualifiers: Hypertension type: essential hypertension Qualified Code(s): I10 - Essential (primary) hypertension - Plan plan discussed w/ family, continue antibiotics, PT/OT, hospice social worker, out of bed/ambulate, DVT proph w/SCDs Stable currently HD per Renal service Continue Ancef/Levaquin PT/OT for mobilization Likely d/c to [place] in 24h Updated pt's son
[2019-05-05] MEDS: Atorvastatin Calcium 20 MG TAB PO SCH (20:01)
[2019-05-05 20:08] VITALS: TEMP 98
[2019-05-06] MEDS ORDERED: HYDROcodone/Acetaminophen 7.5/325 mg Tablet ONE (06:24)
[2019-05-06] MEDS ORDERED: Heparin 10,000 UNITS/ 10 ML VIAL ONE (11:28)
[2019-05-06] MEDS: Lidocaine Patch Removal 1 EACH TOP SCH (12:37)
[2019-05-06] MEDS: Sevelamer Carbonate 800 MG TAB PO SCH ×2 (12:38→12:39)
[2019-05-06] MEDS: Bisacodyl 5 MG TAB PO SCH (12:39)
[2019-05-06] MEDS: Aspirin 81 mg Enteric Coated Tablet PO SCH (12:39)
[2019-05-06] MEDS: cloNIDine 0.1 MG TAB PO SCH (12:39)
[2019-05-06] MEDS: Ferrous Sulfate 325 MG TAB PO SCH (12:40)
[2019-05-06] MEDS: Metoprolol Tartrate 25 MG TAB PO SCH (12:40)
[2019-05-06] MEDS: Amlodipine 10 MG TAB PO SCH (12:40)
[2019-05-06] MEDS: Gemfibrozil 600 MG TAB PO SCH (12:40)
[2019-05-06] MEDS: Heparin 5,000 UNITS/ML VIAL SC SCH (12:40)
[2019-05-06] MEDS: Floranex Packet PO SCH (12:41)
[2019-05-06] MEDS: HumuLIN 70/30 (300 UNITS/3 ML VIAL) SC SCH (12:41)
[2019-05-06] MEDS: Famotidine 20 MG TAB PO SCH (12:41)
[2019-05-06] MEDS: CEFAZOLIN 3 GM in Sodium Chloride 0.9% 100 ML IVPB SCH (12:42)
[2019-05-06] MEDS: Polyethylene Glycol 3350 17 GM Packet PO SCH (12:42)
[2019-05-06 12:43] VITALS: BP 116/75
[2019-05-06 14:37] LABS: Anion Gap 13 mmol/L (10-20); BUN (Urea Nitrogen) 25 mg/dL (9.8-20.1); Calc. Creatinine Clearance 21 mL/min (70-130); Calcium 8.9 mg/dL (7.8-10.44); Carbon Dioxide 28 mmol/L (22-29); Chloride 96 mmol/L (98-107); Estimated GFR-MDRD 10; Glucose 110 mg/dL (70-105); Potassium 3.8 mmol/L (3.5-5.1); Sodium 133 mmol/L (136-145)
--- NOTE | 2019-05-06 14:56 | DIS ---
DATE OF ADMISSION: 04/14/2019 DATE OF DISCHARGE: 05/06/2019 DISCHARGE DIAGNOSES: 1. Methicillin-sensitive Staphylococcus aureus bacteremia. 2. Osteomyelitis of the cervical/thoracic spine. 3. Diabetes mellitus type 2 with end-stage renal disease. 4. End-stage renal disease with hemodialysis. 5. Hypertension, labile. 6. Deconditioning. CONSULTATIONS: 1. Dr. Mckeon with Nephrology Service. 2. Dr. Benito with General Surgery Service. 3. Dr. Joel with Cardiology Service. 4. Dr. Ward with Infectious Disease Service. PERTINENT LABORATORY AND X-RAY FINDINGS: Hemoglobin A1c 6.3. Lactic acid level 1.4. CRP 14.54. BNP 988. CBC showed a white blood cell count ranging between 12.9 to 34.1, hemoglobin ranged between 8.3 to 12.2. Influenza A and B antigen negative on 04/13/2019. Blood cultures x2 dated 04/13/2019, positive 2/2 for Staphylococcus aureus. C difficile antigen and toxin dated 04/19/2019, negative. Blood culture 1/2 positive on 04/29/2019, for alpha-hemolytic Streptococcus species. Repeat blood cultures on 05/01/2019, showed no growth at 5 days. Portable chest x-ray dated 04/13/2019, showed no acute cardiopulmonary process. Duplex venous Doppler study of the left upper extremity showed hypoechoic solid mass circumferentially surrounding AV fistula, likely hematoma. CT of the brain without contrast dated 04/19/2019, showed no acute intracranial process. CT of the brain dated 04/20/2019, showed no acute intracranial process. Cervical spine radiographs dated 04/20/2019, showed suboptimal evaluation of the cervical spine. CT of the facial bones dated 04/20/2019, showed no evidence for fracture or dislocation. CT of the abdomen and pelvis dated 04/20/2019, showed inflammatory changes in the anterior aspect of the T8 vertebral body. Questionable infectious process. Thoracic spine MRI dated 04/21/2019, showed diskitis/osteomyelitis of T8 on T9 with changes at T7 and T8. Prevertebral phlegmon extending anterior to T7 and T8. CT of the abdomen and pelvis dated 04/26/2019, showed similar appearance to the previous study with prevertebral edema and phlegmonous changes at T6 through T9. Thoracic spine MRI dated 04/29/2019, showed infectious spondylitis of the lower cervical spine with osteomyelitis/diskitis of C6 and C7 with anterior epidural phlegmon and abscess impinging on the lower cervical spinal cord. Infectious spondylitis of T8 on T9 with anterior epidural phlegmon and abscess. HOSPITAL COURSE: The patient was initially admitted after presenting with left arm pain in the context of dysfunctional left AV fistula for dialysis. The patient underwent evaluation including vascular study showing a dysfunctional AV fistula, at which point, General Surgery was consulted. The patient underwent placement of a right femoral triple-lumen catheter followed by exploration and eventual removal of the left upper extremity AV fistula. The patient underwent debridement of the area with resection and eventual placement of a right internal jugular cuffed tunneled hemodialysis catheter on 04/15/2019. The patient was medically managed and continued to receive hemodialysis throughout the hospital course at the direction of the Nephrology Service. The patient was also discovered with incidental imaging showing changes of the thoracic and cervical spine concerning for infectious process including diskitis/osteomyelitis. Changes as noted on previous imaging and described under pertinent laboratory and x-ray findings warranted evaluation by the Infectious Disease Service. The patient was placed on IV antibiotic therapy with blood cultures showing evidence of Staphylococcus aureus species in 2/2 blood cultures on 04/13/2019. The patient continued on antibiotic therapy with recommendations for long-term antibiotic coverage with Ancef on Saturday, Saturday, and Saturday with hemodialysis. The patient also continued on oral Levaquin with plans to continue antibiotic therapy until 06/04/2018. The patient received ongoing physical and occupational therapy during the hospital course. Remaining deconditioned with ambulation with a rolling walker and standby/contact guard assistance. Due to the patient's overall comorbid status, prolonged hospital stay, deconditioning, and end-stage renal disease, the patient was deemed an appropriate candidate for ongoing skilled care. The patient has been approved to transfer to [facility] on 05/06/2019. I have examined the patient at the time of discharge and discussed followup instructions. The patient and family verbalized understanding and in agreement and ready for discharge on 05/06/2019. DISCHARGE MEDICATIONS: 1. Norvasc 5 mg p.o. daily. 2. Lipitor 20 mg p.o. at bedtime. 3. Gemfibrozil 600 mg p.o. daily. 4. NovoLog 70/30 of 35 units subcutaneously q.a.m. and 25 units subcutaneously at bedtime. 5. Metoprolol tartrate 25 mg p.o. b.i.d. 6. Zoloft 100 mg p.o. at bedtime. 7. Timolol Maleate one drop to each eye b.i.d. 8. Floranex 1 g p.o. daily. 9. Enteric-coated aspirin 81 mg p.o. daily. 10. Ancef 3 g IV on Saturday, Saturday, and Saturday with hemodialysis. 11. Clonidine 0.1 mg p.o. b.i.d. 12. Pepcid 20 mg p.o. b.i.d. 13. Ferrous sulfate 325 mg p.o. b.i.d. 14. [place] 7.5/325 mg one tab p.o. q.6 hours p.r.n. pain. 15. Lidocaine patch 5% one patch transdermally daily. 16. Oxycodone immediate release 5 mg p.o. q.6 hours p.r.n. breakthrough pain. 17. MiraLAX 17 g p.o. daily. 18. Renvela 1600 mg p.o. t.i.d. with meals. FOLLOWUP: The patient to follow up with Dr. Claudia Driver after discharge. The patient will follow up with Dr. Phil Benito in 2 to 3 weeks after discharge. CONDITION ON DISCHARGE: Fair. ACTIVITY: Rolling walker with standby/contact guard assistance. DIET: Heart healthy and ADA. SPECIAL INSTRUCTIONS: Wound Care Services for decubitus ulcerations of the sacral and buttock region. Continue physical and occupational therapy after discharge. CODE STATUS: Full. DISPOSITION: Discharged to [facility] on 05/06/2019. TIME SPENT: Total time preparing and coordinating discharge is 45 minutes. Job ID: [id number]
--- NOTE | 2019-05-06 15:38 | PRG ---
DATE OF SERVICE: 05/06/2019 SUBJECTIVE: A 59-year-old female, being seen for end-stage renal disease. The patient denies any nausea, vomiting, or chest pain. OBJECTIVE: See above. CONSTITUTIONAL: Awake, alert, in no acute distress. VITAL SIGNS: Afebrile. Pulse 65, breathing 16, and blood pressure 133/64. GENERAL APPEARANCE AND MENTAL STATUS: Fair. HEAD/NECK: Normocephalic. Atraumatic. EYES: EOMI. No deformity. EARS: Clear. No ulcers. NOSE: Intact. No lesions. MOUTH: Clear. No discharge. THROAT: Clear. No exudate. LUNGS: Clear. No crackles. CARDIAC: S1, S2. No rub. ABDOMEN: Benign. Bowel sounds positive. GENITALIA/RECTUM: Weeks absent. BACK/EXTREMITIES: Edema 0+. NEUROLOGICAL: Alert and motor intact. SKIN: LYMPHATICS: LABORATORY DATA: Reviewed. ASSESSMENT AND PLAN: 1. Stage 6 chronic kidney disease. Continue hemodialysis. 2. Hypertension, stable. 3. Anemia, stable. 4. Medication based on GFR appropriate. Job ID: [id number]
[2019-05-06 16:45] LABS: Hemoglobin 9.1 g/dL (12.0-16.0)
== END 2019-05-06 14:24 | DRG 264 ==
LOC: ERS 09:12 → T4-A 12:30 → ERS 14:12 → OBSVTOIN 04-14 10:35 → 2NO 04-15 19:22 → T4-A 04-22 22:28
PROVIDERS: ADMIT Internal Medicine; ATTEND Internal Medicine
PROC: 02HV33Z Insertion of Infusion Device into Superior Vena Cava, Percutaneous Approach (ICD-10-PCS; 2019-04-14)
PROC: 5A1D70Z Performance of Urinary Filtration, Intermittent, Less than 6 Hours Per Day (ICD-10-PCS; 2019-04-14)
PROC: 0JH63XZ Insertion of Tunneled Vascular Access Device into Chest Subcutaneous Tissue and Fascia, Percutaneous Approach (ICD-10-PCS; 2019-04-15)
PROC: 02HV33Z Insertion of Infusion Device into Superior Vena Cava, Percutaneous Approach (ICD-10-PCS; 2019-04-15)
PROC: B548ZZA Ultrasonography of Superior Vena Cava, Guidance (ICD-10-PCS; 2019-04-15)
PROC: 03PY0JZ Removal of Synthetic Substitute from Upper Artery, Open Approach (ICD-10-PCS; principal; 2019-04-21)
PROC: 0JBH0ZZ Excision of Left Lower Arm Subcutaneous Tissue and Fascia, Open Approach (ICD-10-PCS; 2019-04-21)
PROC: B24BZZ4 Ultrasonography of Heart with Aorta, Transesophageal (ICD-10-PCS; 2019-04-21)
PROC: 5A09357 Assistance with Respiratory Ventilation, Less than 24 Consecutive Hours, Continuous Positive Airway Pressure (ICD-10-PCS; 2019-04-21)
DX: T82.590A Other mechanical complication of surgically created arteriovenous fistula, initial encounter (principal); A41.01 Sepsis due to Methicillin susceptible Staphylococcus aureus; N18.6 End stage renal disease; G93.41 Metabolic encephalopathy; M46.22 Osteomyelitis of vertebra, cervical region; M46.24 Osteomyelitis of vertebra, thoracic region; I12.0 Hypertensive chronic kidney disease with stage 5 chronic kidney disease or end stage renal disease; Z68.41 Body mass index [BMI] 40.0-44.9, adult; E87.1 Hypo-osmolality and hyponatremia; T82.838A Hemorrhage due to vascular prosthetic devices, implants and grafts, initial encounter; E66.01 Morbid (severe) obesity due to excess calories; E11.69 Type 2 diabetes mellitus with other specified complication; E11.22 Type 2 diabetes mellitus with diabetic chronic kidney disease; E78.5 Hyperlipidemia, unspecified; E11.319 Type 2 diabetes mellitus with unspecified diabetic retinopathy without macular edema; E87.5 Hyperkalemia; D63.1 Anemia in chronic kidney disease; S00.83XA Contusion of other part of head, initial encounter; W06.XXXA Fall from bed, initial encounter; Y83.2 Surgical operation with anastomosis, bypass or graft as the cause of abnormal reaction of the patient, or of later complication, without mention of misadventure at the time of the procedure; Z99.2 Dependence on renal dialysis; Z79.899 Other long term (current) drug therapy; Z79.4 Long term (current) use of insulin; Z79.82 Long term (current) use of aspirin
CPT/HCPCS: 36415; 36416; 70450; 70486; 71045; 71275; 72040; 72141; 72146; 72191; 74019; 74175; 74177; 76000; 80048; 80053; 80202; 82550; 82553; 83036; 83605; 83735; 83880; 84484; 85014; 85018; 85025; 85652; 86140; 87040; 87077; 87149; 87186; 87324; 87340; 87449; 87804; 90935; 93005; 93010; 93312; 93970; C1752; C1769; G0257; G0365; J0360; J0690; J1644; J1815; J2270; J2405; J2543; J2700; J2704; J3370; J3490; J7050; Q0162; Q9967

== ENCOUNTER 2019-06-26 21:07 | Inpatient (IN) | payer MEDICARE, MEDICAID ==
[2019-06-26] MEDS ORDERED: Morphine 2 MG/ML SYRINGE SLOW IVP PRN (22:56)
[2019-06-26] MEDS ORDERED: HYDROcodone/Acetaminophen 7.5/325 mg Tablet PO PRN (22:58)
[2019-06-26] MEDS ORDERED: traMADol HCl 50 MG TAB PO PRN (22:59)
[2019-06-26] MEDS ORDERED: Acetaminophen 325 MG TAB PO PRN (22:59)
[2019-06-26] MEDS ORDERED: Sodium Chloride 0.9% (PF) 10 ML VIAL FS PRN (23:00)
--- NOTE | 2019-06-26 23:40 | CT ---
NONCONTRAST CT CERVICAL SPINE: 06/26/19 HISTORY: Back pain. Fracture and abscess found on spine two weeks ago. Family reports patient lost control of legs beginning two weeks ago. COMPARISON: MRI cervical spine on 04/29/19. TECHNIQUE: Contiguous axial CT images are obtained through the cervical spine from the skull base to the T1-2 le matilda. Sagittal and coronal reformatted images are provided. FINDINGS: There are prominent end plate irregularities involving the C6 and C7 vertebral bodies with partial co llapse of the C6 vertebral body and exaggerated kyphosis centered at the C6-7 level. These findings a re likely sequela of discitis and osteomyelitis as noted on the prior MRI examination. There is effacement of the ventral subarachnoid space at this level. There is incomplete visualizatio n of a right internal jugular vein hemodialysis catheter. Paravertebral soft tissues demonstrate a gr ossly normal nonenhanced CT appearance. There is mild heterogeneity in the region of the right lobe of the thyroid gland. Limited visualized lung apices are clear. IMPRESSION: Findings most compatible with sequela of discitis and osteomyelitis at the C6-7 level which does appe ar progressed compared to the MRI exam on 04/29/19 with partial collapse of the inferior aspect of th e C6 vertebral body and resultant exaggerated kyphosis of the cervical spine at this level with sligh t retrolisthesis of C6 on C7. Prominent end plate irregularities are noted. POS: DINO
--- NOTE | 2019-06-26 23:58 | CT ---
NONCONTRAST CT THORACIC SPINE: 06/26/19 HISTORY: Back pain. Fracture and abscess found in thoracic spine two weeks ago. Patient has lost control of le gs beginning two weeks ago. Prior MRI thoracic spine report indicates multilevel osteomyelitis. COMPARISON: MRI thoracic spine on 06/26/2019. FINDINGS: As noted on prior MRI examination, there are prominent destructive changes involving the T8 vertebral body as well as the superior end plate T9 vertebral body. The T8 vertebral body is not well demonstr ated due to significant destructive changes. There is also irregularity involving the end plates at t he T11-12 level suggesting discitis and osteomyelitis at this level which corresponds to MRI findings . There is significant height loss and destructive changes of the T8 vertebral body as well as involv ing the T9 vertebral body with destructive changes primarily involving the superior end plate and loc ated anteriorly. There is slight retropulsion of the T8 vertebral body into the central canal. Remaining vertebral body heights are within normal limits. There is prominent paraspinous soft tissue attenuation surrounding the T8 and T9 vertebral bodies lik ricardo related to paraspinal phlegmon. Vascular calcifications are seen in the thoracic aorta. There is atelectasis present medial aspect lungs bilaterally. IMPRESSION: Findings compatible with discitis and osteomyelitis at the T8-9 and T11-12 levels with changes greate r at the T8-9 level where there are significant destructive changes involving the T8 vertebral body a nd to a lesser extent involving the T9 vertebral body with prominent paraspinal phlegmon at the T8-9 level. There does appear to be compromise of the central canal posterior to the T8 vertebral body. Ce ntral canal is better assessed on the recent MRI examination of the thoracic spine obtained earlier lamar leon. Please see that report for further details. POS: DINO
[2019-06-27] MEDS ORDERED: Nitroglycerin 0.4 MG TAB (25 Tab Bottle) SL PRN (00:06)
[2019-06-27] MEDS ORDERED: HYDROcodone/Acetaminophen 7.5/325 mg Tablet PO PRN (00:06)
[2019-06-27] MEDS ORDERED: oxyCODONE 5 MG TAB PO PRN (00:06)
[2019-06-27 00:35] LABS: #Basophils 0.1 thou/uL (0.0-0.2); #Eosinphils 0.5 thou/uL (0.0-0.7); #Lymphocytes 2.1 thou/uL (1.20-3.40); #Monocytes 1.2 thou/uL (0.11-0.59); #Neutrophils 9.3 thou/uL (1.40-6.50); %Basophils 0.8 % (0.0-1.0); %Eosinophils 3.6 % (0.0-10.0); %Lymphocytes 15.9 % (21.0-51.0); %Monocytes 8.9 % (0.0-10.0); %Neutrophils 70.8 % (42.0-75.0); Hemoglobin 11.6 g/dL (12.0-16.0); Mean Corpuscular HGB CONC 31.6 g/dL (32.0-36.0); Mean Corpuscular Hemoglobin 30.7 pg (27.0-31.0); Mean Corpuscular Volume 97.1 fL (78.0-98.0); Mean Platelet Volume 7.6 fL (7.4-10.4); Platelet Count 288 thou/uL (130-400); RBC Distribution Width 14.4 % (11.5-14.5); Red Blood Cell (RBC) Count 3.79 mill/uL (4.20-5.40); White Blood Cell (WBC) Count 13.2 thou/uL (4.8-10.8)
[2019-06-27 00:41] LABS: INR-International Normal Ratio 1.1; PTT 33.9 SEC (22.9-36.1); Prothrombin Time 13.7 SEC (12.0-14.7)
[2019-06-27 00:55] LABS: ALT (SGPT) Less than 7 U/L (8-55); AST (SGOT) 11 U/L (5-34); Albumin 2.8 g/dL (3.5-5.0); Alkaline Phosphatase 105 U/L (40-110); Anion Gap 13 mmol/L (10-20); BUN (Urea Nitrogen) 21 mg/dL (9.8-20.1); Bilirubin, Total 0.2 mg/dL (0.2-1.2); Calc. Creatinine Clearance 0 mL/min (70-130); Carbon Dioxide 29 mmol/L (22-29); Chloride 96 mmol/L (98-107); Estimated GFR-MDRD 15; Globulin 3.2 g/dL (2.4-3.5); Glucose 138 mg/dL (70-105); Potassium 4.2 mmol/L (3.5-5.1); Sodium 134 mmol/L (136-145)
--- NOTE | 2019-06-27 01:16 | CON ---
DATE OF CONSULTATION: 06/26/2019 CHIEF COMPLAINT: Mid back pain with new onset bilateral leg weakness. HISTORY OF PRESENT ILLNESS: Ms. Bright is a very pleasant 59-year-old female who presented from [facility] inpatient rehab for mid back pain with new onset bilateral leg weakness. Patient's family is at bedside and provides additional history. Pertinent medical history includes end-stage renal disease on dialysis, type 2 diabetes mellitus, coronary artery disease with prior stent placement, prior endocarditis, and dyslipidemia. The patient was recently seen in April 2019, with MRIs displaying osteomyelitis involving multiple levels of the cervical and thoracic spines. The patient was followed by Dr. Ward with Infectious Disease at that time and was placed on IV antibiotics, and she has since been transitioned to oral antibiotics that she remains taking. After her hospital stay at [facility] in April, she was discharged to [facility]. She then was able to go home for a few weeks in late May. However, she was again hospitalized at [facility] and then transferred to [facility], where she has remained over the last 8 days. The patient and her family states that she began having increased weakness in her legs over the last 7-8 days. This initially began in her left leg, but gradually began to affect her right leg as well. She feels equally weak in both legs. She has not been able to walk since she was home at the beginning of this month. At that time, she was using a walker to assist with ambulation. She reports mid back pain and shooting pains into her bilateral legs. She denies any numbness or tingling in her legs. She denies neck pain or arm pain at this time, however, does report pain into her shoulders. She currently takes 81 mg aspirin, but no other blood thinners. No current tobacco use, stating that she quit smoking approximately 1 year ago. PHYSICAL EXAMINATION: GENERAL: The patient is awake, alert and appropriate. Follows commands and answers questions appropriately. EXTREMITIES: Patient is able to move her upper extremities without difficulty; however, she has very minimal movement in her bilateral lower extremities. She is able to slightly move her legs and feet bilaterally, but she is not able to elevate her legs off the exam table. The patient has 5/5 strength throughout her bilateral upper extremities. She has antigravity with 2/5 strength throughout her bilateral lower extremities. She does report sensation is intact with light touch in her bilateral lower extremities. Gait was not assessed. The patient presented to the ER wearing her TLSO clamshell brace. IMPRESSION AND DIAGNOSES: 1. Mid back pain with bilateral leg weakness. 2. Osteomyelitis and diskitis, progressed. 3. Thoracic stenosis with spinal cord compression. 4. End-stage renal disease, on dialysis. 5. Type 2 diabetes mellitus. 6. Dyslipidemia. 7. Coronary artery disease, with prior stenting. 8. History of endocarditis. 9. On 81 mg aspirin. PLAN: At this time, I have reviewed this case and imaging with Dr. Cummings. He recommended patient be transferred from [facility] to [facility] for admission to the Critical Care Unit for a higher level of care. MRI of the thoracic spine completed earlier today showed progression of thoracic osteomyelitis with central canal stenosis and spinal cord compression from T7-T9. MRI of the lumbar spine did not display significant stenosis or other concerning abnormalities. Plan is to take the patient to the OR tomorrow morning for thoracic decompression and posterior instrumented fusion. To further assess bone integrity, I have ordered a CT of the thoracic spine without contrast. No MRI of the cervical spine was completed today, but one from 04/2019 was reviewed. I have also ordered a CT of the cervical spine for further evaluation of cervical spine. Labs include CBC, CMP, coags, ESR, CRP, and type and screen. Patient was given a loading dose of 10 mg Decadron IV in the ED. A maintenance dose of 4 mg q.6 hours IV has been ordered, as well as Protonix. Dr. Ward has been consulted for further management of osteomyelitis and antibiotic assistance. The patient will be admitted to the critical care unit. Bed rest with head of bed no higher than 30 degrees. She will be n.p.o. at midnight for surgery tomorrow morning. The patient states that she does produce urine, therefore I have ordered a Weeks catheter placement. The details of tomorrow's surgery were discussed with the patient and her family at great length. We will again go over the surgical procedure tomorrow morning with Dr. Cummings and answer any questions that the patient or family have. Call sooner for any neurologic changes or other concerns. This was a 50 minute initial visit in which greater than 50% of the time was spent in review of prior records, imaging, evaluation, examination of the patient, and formulation of a plan. The remaining time was spent in counseling and coordination of care. Job ID: [id number] MTDD
[2019-06-27] MEDS ORDERED: Dexamethasone 10 MG/ML VIAL ONE (01:28)
[2019-06-27] MEDS ORDERED: Ondansetron PF 4 MG/2 ML Vial IVP PRN (02:07)
[2019-06-27] MEDS ORDERED: Ondansetron ODT 4 MG TAB SL PRN (02:07)
[2019-06-27] MEDS: Lidocaine Patch Removal 1 EACH TOP SCH (03:52)
[2019-06-27 04:48] LABS: Bilirubin Negative (Negative); Blood, Urine Large (Negative); Glucose, Urine (Dipstick) 250 mg/dL (Negative); Leukocyte Large (Negative); Nitrite Negative (Negative); Protein, Urine (Dipstick) > or equal to 300 mg/dL (Neg-Trace); Urobilinogen 0.2 mg/dL (Less than 2)
[2019-06-27 04:55] LABS: Clarity Extra Turbid (Clear); Urine Culture Reflex No No
[2019-06-27 04:56] LABS: RBC/HPF 21-50 HPF (0-3); Squamous Epithelial 0-3 HPF (0-3); Transitional Epithelial 0-3 HPF (None Seen); WBC/HPF Greater than 50 HPF (0-3)
[2019-06-27 04:57] LABS: Bacteria/HPF 1+ HPF (None Seen); Yeast-Budding 1+ HPF (None Seen)
[2019-06-27 04:58] LABS: Trichomonas/HPF None Seen HPF (None Seen); Yeast-Hyphae 1+ HPF (None Seen)
[2019-06-27] MEDS ORDERED: cefTRIAXone\\ROCEPHIN 1 GM in Sodium Chloride 0.9% 100 ML IVPB SCH (06:00)
[2019-06-27] MEDS: Dexamethasone 4 MG in Sodium Chloride 0.9% 50 ML IVPB SCH ×4 (06:22→23:52)
--- NOTE | 2019-06-27 07:01 | HP ---
PRIMARY CARE PROVIDER: Claudia Driver MD. PRIMARY NEUROSURGEON: Diego Cummings MD. PRIMARY TRAY LINE SUPERVISOR: Dr. Mckeon. CHIEF COMPLAINT: Back pain with difficulty ambulating. HISTORY OF PRESENT ILLNESS: This is a 59-year-old female with significant history of cervical and thoracic osteomyelitis with diskitis with recent hospital admission from 04/14/2019 through 05/06/2019. The patient was noted with a methicillin sensitive Staphylococcus aureus bacteremia in conjunction with osteomyelitis of the cervical and thoracic spine. The patient was treated with IV Ancef on Mondays, Wednesdays, and Fridays with her hemodialysis session, completing the course of antibiotic therapy. The patient was discharged from [facility] to [facility] completing her initial snf days at [facility]. The patient transitioned home for several weeks, however, was admitted subsequently on 06/12/2019 through 06/18/[address] [facility]. The patient eventually transitioned to [facility] where she convalesced and continued receiving physical and occupational therapy. The patient was noted with increasing lower extremity weakness, ataxic gait, and concern for worsening of her osteomyelitis with cord compression. The patient was evaluated and recommended to seek medical attention at [facility]. The patient was evaluated by the Neurosurgical Service, undergoing MRI and CT of the lumbar, thoracic, and cervical spine. The patient was noted with progression of the osteomyelitis of the cervical and thoracic spine with severe cord compression at T7 and T8. The patient was initiated on dexamethasone and vancomycin in the emergency room. The patient was transferred to the critical care unit with plans for surgical decompression of the thoracic spine and cord per Neurosurgical recommendations. PAST MEDICAL HISTORY: 1. Cervical and thoracic osteomyelitis/diskitis. 2. Myelopathy/radiculopathy secondary to #1. 3. Severe spinal cord central canal stenosis at T7-T8 level. 4. Diabetes mellitus type 2. 5. Obstructive sleep apnea. 6. Dyslipidemia. 7. Coronary artery disease. 8. History of endocarditis. 9. End-stage renal disease with hemodialysis. 10. Cataracts. 11. Right eye blindness. PAST SURGICAL HISTORY: 1. Status post dialysis access revision. 2. 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 3. Status post appendectomy. 4. Status post bilateral cataract removal. 5. Status post right ankle repair. CURRENT MEDICATIONS: 1. Amlodipine 5 mg p.o. daily. 2. Lipitor 20 mg p.o. at bedtime. 3. Ferric citrate 210 mg p.o. daily. 4. Gemfibrozil 600 mg p.o. daily. 5. Humalog t.i.d. with meals. 6. Lopressor 25 mg p.o. b.i.d. 7. Zoloft 100 mg p.o. at bedtime. 8. Vancomycin 750 mg with hemodialysis Saturday, Saturday, and Saturday. 9. Aspirin 81 mg p.o. daily. 10. Clonidine 0.1 mg p.o. b.i.d. 11. Nitroglycerin 0.4 mg sublingually q.5 minutes chest pain. 12. MiraLAX 17 g p.o. daily. ALLERGIES: NO KNOWN DRUG ALLERGIES. FAMILY HISTORY: Father after complications of a motor vehicle accident. Mother with diabetes mellitus. SOCIAL HISTORY: Resides in the [facility]. Accompanied by her son in the hospital. No current alcohol, tobacco, or illicit drug use. Nonambulatory due to thoracic spinal cord compression. REVIEW OF SYSTEMS: CONSTITUTIONAL: Negative for weight loss or gain, ability to conduct usual activities. SKIN: Negative for rash, itching. EYES: Negative for double vision, pain. ENT/MOUTH: Negative for nose bleeding, neck stiffness, pain, tenderness. CARDIOVASCULAR: Negative for palpitations, dyspnea on exertion, orthopnea. RESPIRATORY: Negative for shortness of breath, wheezing, cough, hemoptysis, fever or night sweats. GASTROINTESTINAL: Negative for poor appetite, abdominal pain, heartburn, nausea, vomiting, constipation, or diarrhea. GENITOURINARY: Negative for urgency, frequency, dysuria, nocturia. MUSCULOSKELETAL: Negative for pain, swelling. NEUROLOGIC/PSYCHIATRIC: Negative for anxiety, depression. ALLERGY/IMMUNOLOGIC: Negative for skin rash, bleeding tendency. Otherwise negative except as stated per HPI. PHYSICAL EXAMINATION: VITAL SIGNS: On admission, blood pressure 132/66, pulse 59, respiratory rate 14, temperature 98.7 degrees Fahrenheit, O2 saturation 97% on room air. GENERAL APPEARANCE: This is a 59-year-old female, pleasant, responsive, in no acute distress. HEENT: Pupils are equal, round, and reactive to light and accommodation. Extraocular muscles are intact. No scleral icterus. No conjunctival injection. Nares patent. OP is clear. Teeth in fair repair. NECK: Supple. No cervical adenopathy. No thyromegaly. No carotid bruits. No JVD appreciated. Cervical spine with full active and passive range of motion. No meningeal signs noted. CHEST: Diminished breath sounds in the bases bilaterally. CARDIOVASCULAR: S1, S2 without noted murmur, rub, or gallop. ABDOMEN: Obese, nontender, nondistended. Bowel sounds are positive in all 4 quadrants. No palpable mass. EXTREMITIES: Warm and dry with fair turgor. No clubbing, cyanosis, or asymmetric edema appreciated. Pulses are palpable distally at the dorsalis pedis, posterior tibial, and popliteal arteries bilaterally. Capillary refill less than 2 seconds. NEUROLOGIC: 3/5 motor strength in bilateral lower extremities. Patellar and Achilles reflex 2/4 bilaterally. Not observed ambulatory during this exam. TLSO brace in place. PERTINENT LABORATORY AND X-RAY FINDINGS: Sodium 134, potassium 4.2, chloride 96, CO2 of 29, BUN 21, creatinine 3.12, estimated GFR 15, glucose 138, calcium 9.0. LFTs within normal limits. CRP 15.66, previously 9.30 on 05/13/2019. CBC showed a white blood cell count of 13.2, hemoglobin 12, hematocrit 37, platelet count 288 with 71% neutrophils. ESR 92. Urinalysis showed positive protein and glucose, large blood and leukocyte esterase with 21-50 rbc's per high-power field and greater than 50 to [id number]-count wbc's per high-power field, 1+ bacteria and yeast. Lumbar spine MRI dated 06/26/2019 showed no acute process. Thoracic spine MRI dated 06/26/2019 showed multilevel osteomyelitis at T8, T9, T11, and T12; worsening paraspinal phlegmon; significant central canal stenosis at T7 and T8 with high-grade stenosis. CT of the cervical spine dated 06/26/2019 showed diskitis and osteomyelitis at C6-C7, progressed since prior MRI imaging on 04/29/2019. Telemetry shows sinus tachycardia with heart rates in the low 100s. ASSESSMENT AND PLAN: 1. Osteomyelitis/diskitis with myelopathy/radiculopathy from thoracic spine. The patient admitted to the critical care unit. Neurosurgical evaluation completed with plan for surgical intervention and decompression of the thoracic spine on 06/27/2019. Continue dexamethasone 4 mg IV q.6 hours. Pain control as clinically indicated. 2. Osteomyelitis/diskitis of the cervical and thoracic spine. Continue current antibiotic regimen to include Ancef, Rocephin, and Levaquin. Infectious Disease consult pending for assistance in antibiotic regimen. 3. End-stage renal disease with hemodialysis. Consult Nephrology Service for ongoing maintenance hemodialysis timing. No current evidence to suggest acute volume overload. 4. Urinary tract infection, suspected. Initiate Rocephin 1 g IV q24 hours. Add Diflucan with hemodialysis. 5. Hypertension. Continue home blood pressure regimen and monitor clinical response. P.r.n. hydralazine. 6. Severe deconditioning. Secondarily to above diagnosis. PT/OT evaluation after surgical intervention. Likely will benefit from acute inpatient rehabilitation on discharge. 7. Prophylaxis. SCDs while in bed. Pepcid 20 mg IV q.12 hours. 8. Code status is full. Surrogate medical decision maker is the patient's son. Job ID: [id number]
[2019-06-27] MEDS ORDERED: Pantoprazole 40 MG VIAL IVP SCH (09:00)
[2019-06-27] MEDS ORDERED: Rocuronium Bromide 10 MG/ML (10ML VIAL) ONE (09:11)
[2019-06-27] MEDS ORDERED: PHENYLEPHRINE-NS 100 MCG/ML 10 ML SYRINGE ONE (09:11)
[2019-06-27] MEDS ORDERED: PROPOFOL 200 MG/20 ML VIAL ONE (09:11)
[2019-06-27] MEDS ORDERED: ePHEDrine/0.9% NaCl/PF SYRINGE 50 mg/10 ml ONE (09:11)
[2019-06-27] MEDS ORDERED: Lidocaine 1% PF 5 ML VIAL ONE (09:11)
[2019-06-27] MEDS: Floranex Packet PO SCH (09:12)
[2019-06-27] MEDS: Sevelamer Carbonate 800 MG TAB PO SCH ×3 (09:12→17:46)
[2019-06-27] MEDS: cloNIDine 0.1 MG TAB PO SCH ×2 (09:12→20:39)
[2019-06-27] MEDS: Amlodipine 5 MG TAB PO SCH (09:12)
[2019-06-27] MEDS: Famotidine 20 MG TAB PO SCH (09:12)
[2019-06-27] MEDS: Polyethylene Glycol 3350 17 GM Packet PO SCH (09:13)
[2019-06-27] MEDS: Ferrous Sulfate 325 MG TAB PO SCH ×2 (09:13→20:40)
[2019-06-27] MEDS: Gemfibrozil 600 MG TAB PO SCH (09:13)
[2019-06-27] MEDS: Metoprolol Tartrate 25 MG TAB PO SCH ×2 (09:28→20:40)
[2019-06-27] MEDS ORDERED: Heparin 10,000 UNITS/ 10 ML VIAL ONE (10:31)
[2019-06-27] MEDS ORDERED: Ketamine 50 MG/ML (10ML VIAL) ONE (10:51)
[2019-06-27] MEDS ORDERED: Fentanyl 250 MCG/5 ML VIAL ONE (10:51)
[2019-06-27] MEDS ORDERED: Albumin 25% 100 ML ONE (10:51)
[2019-06-27] MEDS ORDERED: Albumin 5% 500 ML ONE (10:51)
[2019-06-27] MEDS ORDERED: Insulin Regular 300 UNITS/3 ML VIAL ONE (10:55)
[2019-06-27] MEDS: Timolol 0.5% Ophth Soln 5 ml Bottle EA EYE SCH ×2 (11:53→20:38)
[2019-06-27] MEDS: Linezolid 600 MG in Premix Bag 1 BAG IVPB SCH ×2 (11:53→23:44)
[2019-06-27] MEDS ORDERED: Sodium Chloride 0.9% 20 ML ONE (11:54)
--- NOTE | 2019-06-27 11:56 | PRG ---
DATE OF SERVICE: 06/27/2019 Ms. Bright is a 59-year-old woman with known osteo diskitis involving the cervical and thoracic spine. She has demonstrated in her urine that she has growth of vancomycin-resistant Enterococcus and Staphylococcus aureus. Her disease has progressed in her spine resulting in a kyphotic deformity and spinal cord compression at C6 and as such, she needs surgery, which should be a C6 corpectomy and C5 through C7 plating for alevism of deformity and prevention of progression of myelopathy, but she also has progression of osteolysis due to form in osteo diskitis at T8, T9, and as such, surgery here would be a T7 through T9 laminectomy and T6 through T11 instrumented fusion. She is paraplegic and while she moves her upper extremities without apparent deficits, she certainly is substantially weak in her lower extremities. Arguably, she has severe paraparesis now with the initiation of Decadron with severe cord compression and signal abnormality. I discussed extensively with the family her risks, but that if we do nothing, then there is really no hope for any type of functional outcome. They wish that we proceed with surgery and will proceed with a C5 through C7 plating and C6 corpectomy with fibular strut graft placement and bottom of T7 through T9 laminectomy and T6 through T11 instrumented stabilization of the spine. They wish to proceed. We will put her on linezolid, which appears to be of the cultures they have been obtained over the last few months. The only antibiotic that covers both her VRE and her Staph aureus. I extensively discussed informed consent, the goals, risks, indication, and alternatives of both surgeries. I do not want to do two surgeries on two different days as the chance of her developing quadriplegia is significant if we do not address cervicals spine today. Job ID: [id number]
--- NOTE | 2019-06-27 13:14 | CON ---
DATE OF CONSULTATION: 06/27/2019 CONSULTING PHYSICIAN: ARIA MARSHALL REASON FOR CONSULTATION: End-stage renal disease evaluation. REASON FOR ADMISSION: Difficulty breathing, difficulty walking, and back pain. HISTORY OF PRESENT ILLNESS: This is a 59-year-old female with history of type 2 diabetes, obstructive sleep apnea, and end-stage renal disease, who came to the hospital with back pain. She was at the rehab and not getting better with concerns for osteomyelitis, cord compression, and was sent over here and is having surgery today. No fever or chills. No nausea or vomiting. PAST MEDICAL HISTORY: Positive for osteomyelitis, type 2 diabetes, obstructive sleep apnea, hyperlipidemia, coronary artery disease, endocarditis, end-stage renal disease, cataract, and right eye blindness. PAST SURGICAL HISTORY: Dialysis access placement, amputation, appendectomy, cataract surgery, and ankle repair. HOME MEDICATIONS: Reviewed. ALLERGIES: NO KNOWN DRUG ALLERGIES. SOCIAL HISTORY: No smoking, alcohol, or illicit drug abuse. FAMILY HISTORY: No history of kidney disease. REVIEW OF SYSTEMS: CONSTITUTIONAL: Negative for weight loss or gain, ability to conduct usual activities. SKIN: Negative for rash, itching. EYES: Negative for double vision, pain. ENT/MOUTH: Negative for nose bleeding, neck stiffness, pain, tenderness. CARDIOVASCULAR: Negative for palpitations, dyspnea on exertion, orthopnea. RESPIRATORY: Negative for shortness of breath, wheezing, cough, hemoptysis, fever or night sweats. GASTROINTESTINAL: Negative for poor appetite, abdominal pain, heartburn, nausea, vomiting, constipation, or diarrhea. GENITOURINARY: Negative for urgency, frequency, dysuria, nocturia. MUSCULOSKELETAL: Negative for pain, swelling. NEUROLOGIC/PSYCHIATRIC: Negative for anxiety, depression. ALLERGY/IMMUNOLOGIC: Negative for skin rash, bleeding tendency. PHYSICAL EXAMINATION: GENERAL: This is an obese female, in no apparent distress. VITAL SIGNS: Temperature 98.7, pulse 60, respiratory rate 18, and blood pressure 122/70. HEENT: Atraumatic, normocephalic. Oral mucosa is moist. NECK: Supple. CARDIOVASCULAR: S1 and S2. Rate and rhythm are regular. RESPIRATORY: Clear. GASTROINTESTINAL: Abdomen is soft. MUSCULOSKELETAL: 1+ edema. DERMATOLOGIC: No skin rash. NEUROLOGIC: Alert and awake. PSYCHIATRIC: Normal mood and affect. LABORATORY DATA: Hemoglobin 11.3, potassium 4.2, BUN is 21, creatinine is 3.1. ASSESSMENT AND PLAN: 1. End-stage renal disease. We will have dialysis today after surgery. 2. Edema, controlled. 3. Hyponatremia. 4. History of hypertension. 5. Chronic anemia. Continue dialysis as tolerated. Job ID: [id number]
[2019-06-27] MEDS: Lidocaine 5% Patch TD SCH (14:30)
--- NOTE | 2019-06-27 16:53 | CON ---
DATE OF CONSULTATION: 06/27/2019 REASON FOR CONSULTATION: CCU management. HISTORY OF PRESENT ILLNESS: Ms. Bright is a 59-year-old who presented to the hospital with back pain and difficulty ambulating. She has a history of cervical and thoracic osteomyelitis with diskitis, has grown out Staphylococcus aureus from this in the past. She is apparently being taken down the OR today for surgical decompression. PAST MEDICAL HISTORY: 1. End-stage renal disease, requiring hemodialysis. 2. MICHAEL. 3. Cervical and thoracic osteomyelitis. 4. Myelopathy and radiculopathy. 5. Spinal cord central canal stenosis. 6. Hyperlipidemia. 7. Coronary artery disease. 8. Endocarditis. 9. Cataracts. 10. Right eye blindness. PAST SURGICAL HISTORY: 1. Dialysis access and subsequent revision. 2. Partial amputation of right 1st and 2nd toes. 3. Appendectomy. 4. Cataract removal. 5. Right ankle repair. MEDICATIONS: Home medications were listed in chart and were reviewed. ALLERGIES: NONE. FAMILY MEDICAL HISTORY: Remarkable for diabetes. SOCIAL HISTORY: Nonsmoker. Does not consume alcohol. REVIEW OF SYSTEMS: Remarkable for lower extremity weakness, back pain. Otherwise, negative. PHYSICAL EXAMINATION: VITAL SIGNS: Temperature 98.7, pulse 76, blood pressure 134/76, O2 saturation 100%. GENERAL: She is awake, alert, in no distress. She is wearing a shell over thoracic region. HEENT: Unremarkable. NECK: No adenopathy or JVD. CHEST: Clear to auscultation anteriorly. CARDIAC: S1 and S2 regular without murmur. ABDOMEN: Soft and nontender. EXTREMITIES: No clubbing, cyanosis, or edema. LABORATORY DATA: White blood cell count 13.2, hematocrit 36.8, and platelet count 288. Sodium 134, potassium 4.2, chloride 96, CO2 of 29, BUN 31, creatinine 3.1, and glucose 138. C-reactive protein 15.6. ASSESSMENT: Lower extremity weakness. PLAN: Neurosurgery is taking her down for decompression. The patient understands she may be left intubated after surgery depending on what they find in the length of surgery. I will be happy to follow with you. Job ID: [id number]
--- NOTE | 2019-06-27 17:35 | PDOC.BPN ---
- Brief Progress Note 59 y/o lady with PMH of T2DM, ESRD on HD admitted for osteo/disciitts of cerivcal spine. Will be taken to OR today by neurosurgery. ID following.
[2019-06-27] MEDS ORDERED: Ventilator Sedation Protocol 1 EACH FS ONE (17:39)
[2019-06-27] MEDS ORDERED: DISCONTINUE PREVIOUS NARCOTIC PAIN MEDICATIONS AND BENZODIAZEPINES FS SCH (17:42)
[2019-06-27] MEDS ORDERED: Morphine 2 MG/ML SYRINGE SLOW IVP PRN (17:42)
[2019-06-27] MEDS ORDERED: Propofol 1,000 MG/100 ML VIAL IV PRN (17:42)
[2019-06-27] MEDS ORDERED: Lorazepam 2 MG/ML VIAL SLOW IVP PRN (17:42)
[2019-06-27] MEDS ORDERED: Propofol BOLUS 1,000 MG/100 ML VIAL IV PRN (17:42)
[2019-06-27] MEDS ORDERED: fentaNYL Citrate/PF 2,000 MCG in Sodium Chloride 0.9% 60 ML IV SCH (17:42)
[2019-06-27] MEDS ORDERED: Fentanyl BOLUS 250 ML IVPB PRN (17:42)
[2019-06-27] MEDS ORDERED: HumuLIN 70/30 (300 UNITS/3 ML VIAL) SC SCH (18:00)
[2019-06-27] MEDS: Ondansetron PF 4 MG/2 ML Vial IVP PRN (19:39)
[2019-06-27 19:44] LABS: Actual Bicarbonate (HCO3a) 22.4 mEq/L (22-28); Base Excess (BEa) -0.5 mEq/L (-2.0 to +3.0); CO2 Tension 31.4 mmHg (35.0-45.0); Calcium, Ionized 1.16 mmol/L (1.12-1.30); Carboxyhemoglobin (COHb) 0.4 gm% (0.0-3.0); Hemoglobin (Hb) 11.9 g/dL (12.0-16.0); O2 Tension (PaO2) 167.6 mmHg (80.0-100.0); Potassium - ABG Lab 4.19 mmol/L (3.70-5.30); pH, Arterial 7.47 (7.35-7.45)
[2019-06-27 19:47] LABS: Puncture Site RRADIAL
[2019-06-27] MEDS: Atorvastatin Calcium 20 MG TAB PO SCH (20:39)
[2019-06-28] MEDS: Lidocaine Patch Removal 1 EACH TOP SCH (02:21)
[2019-06-28 04:04] LABS: Anion Gap 17 mmol/L (10-20); BUN (Urea Nitrogen) 18 mg/dL (9.8-20.1); Calc. Creatinine Clearance 38 mL/min (70-130); Calcium 8.6 mg/dL (7.8-10.44); Carbon Dioxide 24 mmol/L (22-29); Chloride 97 mmol/L (98-107); Estimated GFR-MDRD 22; Glucose 324 mg/dL (70-105); Potassium 4.3 mmol/L (3.5-5.1); Sodium 134 mmol/L (136-145)
[2019-06-28 04:30] LABS: Hemoglobin 11.1 g/dL (12.0-16.0); Mean Corpuscular HGB CONC 30.1 g/dL (32.0-36.0); Mean Corpuscular Hemoglobin 29.5 pg (27.0-31.0); Mean Platelet Volume 7.6 fL (7.4-10.4); Platelet Count 350 thou/uL (130-400); RBC Distribution Width 14.3 % (11.5-14.5); Red Blood Cell (RBC) Count 3.77 mill/uL (4.20-5.40); White Blood Cell (WBC) Count 29.1 thou/uL (4.8-10.8)
[2019-06-28 04:31] LABS: Band 1 % (5-11); Lymphocytes 4 % (21-51); MDiff Complete? YES; Monocytes 6 % (0-10); Neutrophil 89 % (42-75); Platelet Morphology Comment Appears Adequate; RBC Morphology Normal
[2019-06-28] MEDS: Dexamethasone 4 MG in Sodium Chloride 0.9% 50 ML IVPB SCH ×2 (05:22→11:26)
[2019-06-28] MEDS ORDERED: CEFAZOLIN 0.5 GM, Admixture Fee 1 EACH in Sodium Chloride 0.9% 100 ML IVPB SCH (06:15)
[2019-06-28] MEDS ORDERED: Dextrose 5% in Water 1,000 ML IV PRN ×2 (06:22→09:10)
[2019-06-28] MEDS ORDERED: Dextrose 50% Abboject 50 ML SYRINGE IVP PRN (06:22)
[2019-06-28] MEDS: HumaLOG 300 UNITS/3 ML VIAL SC PRN ×4 (06:33→23:21)
[2019-06-28 07:58] LABS: Actual Bicarbonate (HCO3a) 25.5 mEq/L (22-28); Base Excess (BEa) -0.5 mEq/L (-2.0 to +3.0); CO2 Tension 47.6 mmHg (35.0-45.0); Calcium, Ionized 1.15 mmol/L (1.12-1.30); Hemoglobin (Hb) 11.5 g/dL (12.0-16.0); O2 Tension (PaO2) 98.8 mmHg (80.0-100.0); Potassium - ABG Lab 4.04 mmol/L (3.70-5.30); pH, Arterial 7.35 (7.35-7.45)
[2019-06-28 08:04] LABS: Puncture Site RR
[2019-06-28] MEDS ORDERED: CEFAZOLIN 2 GM in Premix Bag 1 BAG IVPB SCH (09:00)
[2019-06-28] MEDS ORDERED: DC Sedation Protocol FS ONE (09:00)
[2019-06-28] MEDS ORDERED: CEFAZOLIN 2 GM, Admixture Fee 1 EACH in Sodium Chloride 0.9% 100 ML IVPB SCH (09:00)
[2019-06-28] MEDS ORDERED: Dextrose 50% Abboject 50 ML SYRINGE SLOW IVP PRN (09:10)
--- NOTE | 2019-06-28 09:24 | PRG ---
DATE OF SERVICE: 06/28/2019 Thirty five minutes critical care time. SUBJECTIVE: The patient remains intubated after having neck surgery yesterday. Sedation is off. She is able to follow commands without difficulty. OBJECTIVE: VITAL SIGNS: Temperature 98.8, pulse 83, blood pressure 151/49, O2 saturation 100%. Intake 511, output 720. HEENT: Unremarkable. NECK: She has a C-collar in place. Also has a bandage around her neck. LUNGS: Clear. CARDIAC: S1 and S2, regular. ABDOMEN: Soft, obese, nontender, and nondistended. EXTREMITIES: No clubbing, cyanosis, or edema. NEUROLOGIC: She moves all 4 extremities without difficulty. LABORATORY DATA: Sodium 134, potassium 4.3, chloride 97, CO2 of 24, BUN 18, creatinine 2.3, glucose 324. INR is 1.1. PH of 7.35, pCO2 of 47, pO2 of 98, on SIMV rate 8, tidal volume 450, PEEP 5, pressure support 12, FiO2 40%. White blood cell count 29, hematocrit 36.9, and platelet count 315. ASSESSMENT: Postoperative ventilator, doing well. PLAN: I will go ahead and extubate her. We will place her on EzPAP with nebs to hopefully help prevent atelectasis. Further orders per Neurosurgery and Internal Medicine. Of note, she is on broad-spectrum antibiotics for diskitis. Job ID: [id number]
--- NOTE | 2019-06-28 09:46 | PDOC.HOSPP ---
- Subjective Subjective: POD1 from anterior cervical discemtomy and spinal fusion. She is still intubated and vetilated on sedation this AM. No overnight events reported. Glucose has been elevated. - Objective Vital Signs & Weight: Vital Signs (12 hours) Temp Pulse Resp BP 06/28/19 08:00 98.8 F 06/28/19 07:49 83 151/49 H 06/28/19 06:00 19 06/28/19 04:00 98.8 F 12 06/28/19 02:08 84 152/105 H 06/28/19 02:00 14 06/28/19 00:00 97.7 F 25 H 06/27/19 22:33 78 128/68 06/27/19 22:00 22 H Weight Weight 189 lb 3.2 oz Most Recent Monitor Data Heart Rate from ECG 83 NIBP 155/131 NIBP BP-Mean 139 Respiration from ECG 20 SpO2 100 I&O: 06/27/19 06/28/19 06/29/19 06:59 06:59 06:59 Intake Total 511.5 Output Total 1015 720 0 Balance -1015 -208.5 0 Result Diagrams: 06/28/19 03:29 06/28/19 03:29 Additional Labs: Accuchecks 06/28/19 06/27/19 06/27/19 05:29 18:33 10:28 POC Glucose 343 H 115 H 285 H Hospitalist ROS - Review of Systems ROS unobtainable: due to endotracheal tube - Medication Medications: Active Medications Generic Name Dose Route Start Last Admin Trade Name Freq PRN Reason Stop Dose Admin Acidophilus 1 gm 06/27/19 09:00 06/27/19 09:12 Floranex PO Not Given DAILY [facility] Amlodipine Besylate 5 mg 06/27/19 09:00 06/27/19 09:12 Norvasc PO Not Given DAILY [facility] Atorvastatin Calcium 20 mg 06/27/19 21:00 06/27/19 20:39 Lipitor PO Not Given HS [facility] Clonidine 0.1 mg 06/27/19 09:00 06/27/19 20:39 Catapres PO Not Given BID [facility] Famotidine 20 mg 06/27/19 09:00 06/27/19 09:12 Pepcid PO Not Given DAILY [facility] Ferrous Sulfate 325 mg 06/27/19 09:00 06/27/19 20:40 Feosol PO Not Given BID [facility] Gemfibrozil 600 mg 06/27/19 09:00 06/27/19 09:13 Lopid PO Not Given DAILY [facility] Dexamethasone 4 mg/ Sodium 50.4 mls @ 100 mls/hr 06/27/19 06:00 06/28/19 05: 22 Chloride IVPB 50.4 mls Q6HR [facility] Administration Linezolid 600 mg/ Device 300 mls @ 150 mls/hr 06/27/19 11:00 06/27/19 23:44 IVPB 300 mls 1100,2300 [facility] Administration Insulin Human Lispro 0 units 06/28/19 06:22 06/28/19 06:33 Humalog SC 8 unit .MODERATE SLIDING SC PRN Administration MODERATE SLIDING SCALE Protocol Lidocaine 1 patch 06/27/19 14:00 06/27/19 14:30 Lidoderm 5% Patch TD Not Given 1400 [facility] Metoprolol Tartrate 25 mg 06/27/19 09:00 06/27/19 20:40 Lopressor PO Not Given BID [facility] Miscellaneous Medication 1 each 06/27/19 02:00 06/28/19 02:21 Lidocaine Patch Removal TOP Not Given 0200 [facility] Ondansetron HCl 4 mg 06/26/19 23:07 06/27/19 19:39 Zofran IVP 4 mg Q6H PRN Administration Nausea/Vomiting Polyethylene Glycol 17 gm 06/27/19 09:00 06/27/19 09:13 Miralax PO Not Given DAILY [facility] Sertraline HCl 100 mg 06/27/19 21:00 06/27/19 21:55 Zoloft PO Not Given HS [facility] Sevelamer Carbonate 1,600 mg 06/27/19 08:00 06/27/19 17:46 Renvela PO Not Given TID-WM [facility] Timolol Maleate 1 drop 06/27/19 09:00 06/27/19 20:38 Timoptic 0.5% Ophth Soln EA EYE 1 drop BID [facility] Administration - Exam General - other findings: Intubated and sedated Eye: PERRL ENT: normocephalic atraumatic, moist mucosa Neck: supple, no JVD Neck - other findings: In C collar Heart: RRR, no murmur, no gallops Respiratory: CTAB, no rales Gastrointestinal: soft, non-tender, non-distended Skin: normal turgor, no lesions, no rashes Neurological: no focal deficits, no new deficit Musculoskeletal: no muscle wasting Hosp A/P (1) Cervical discitis Code(s): M46.42 - DISCITIS, UNSPECIFIED, CERVICAL REGION Status: Acute (2) Osteomyelitis Code(s): M86.9 - OSTEOMYELITIS, UNSPECIFIED Status: Acute Qualifiers: Osteomyelitis type: unspecified type Osteomyelitis location: other site Qualified Code(s): M86.9 - Osteomyelitis, unspecified (3) DM2 (diabetes mellitus, type 2) Status: Chronic Qualifiers: Diabetes mellitus exterminator termite insulin use: with shelter use Diabetes mellitus complication status: with kidney complications Diabetes mellitus complication detail: with chronic kidney disease Chronic kidney disease stage : on chronic dialysis Qualified Code(s): E11.22 - Type 2 diabetes mellitus with diabetic chronic kidney disease; N18.6 - End stage renal disease; Z79.4 - retirement (current) use of insulin; Z99.2 - Dependence on renal dialysis (4) ESRD on hemodialysis Code(s): N18.6 - END STAGE RENAL DISEASE; Z99.2 - DEPENDENCE ON RENAL DIALYSIS Status: Chronic (5) Hypertension Code(s): I10 - ESSENTIAL (PRIMARY) HYPERTENSION Status: Chronic Qualifiers: Hypertension type: essential hypertension Qualified Code(s): I10 - Essential (primary) hypertension - Plan Plan for extubated today as per Pulm/CCU team POD1 from anterior cervical disktecomy, surgical cultures have been sent, ID on board, currently on Cefazolin and Linezolid Dialysis on ,,Sat, appreciate nephrology reccs Lantus 20 units and MDCS after extubation Resume home medication for chronic conditions including amlodipine, atorvastatin , ferrous sulfate, sertraline, sevelamer Disposition: Plan for extubation. Continue tx of diskitis/osteo. Appreciate independent beauty consultant help.
[2019-06-28] MEDS: Timolol 0.5% Ophth Soln 5 ml Bottle EA EYE SCH ×2 (10:55→19:51)
[2019-06-28] MEDS: Linezolid 600 MG in Premix Bag 1 BAG IVPB SCH ×2 (10:55→21:59)
[2019-06-28] MEDS: HYDROcodone/Acetaminophen 5/325 mg Tablet PO PRN (10:57)
[2019-06-28] MEDS: Metoprolol Tartrate 25 MG TAB PO SCH ×2 (11:17→19:51)
[2019-06-28] MEDS: Sevelamer Carbonate 800 MG TAB PO SCH ×3 (11:17→17:24)
[2019-06-28] MEDS: Ferrous Sulfate 325 MG TAB PO SCH ×2 (11:18→19:52)
[2019-06-28] MEDS: Famotidine 20 MG TAB PO SCH (11:18)
[2019-06-28] MEDS: cloNIDine 0.1 MG TAB PO SCH ×2 (11:18→20:02)
[2019-06-28] MEDS: Gemfibrozil 600 MG TAB PO SCH (11:18)
[2019-06-28] MEDS: Polyethylene Glycol 3350 17 GM Packet PO SCH (11:19)
[2019-06-28] MEDS: Amlodipine 5 MG TAB PO SCH (11:19)
[2019-06-28] MEDS: Dexamethasone 4 mg/ml Vial SLOW IVP SCH ×3 (11:20→23:16)
--- NOTE | 2019-06-28 12:06 | PRG ---
DATE OF SERVICE: 06/28/2019 This is Mark Egan PA-C dictating a report for Diego Cummings MD. Ms. Bright is postoperative day #1 having undergone C6 corpectomy with C5-C7 anterior cervical planing and T7-T9 laminectomies with T6-T11 fusion for osteomyelitis at C6 and T8. The patient was intubated overnight and did not have any events overnight. The patient has been on sedation, but when this turned off, she opens her eyes to command. She is in a well-fitting [place] collar. She is able to move all the extremities although slow to move the bilateral lower extremities. She is able to bend the knees weakly bilaterally and is able to wiggle toes bilaterally. 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 At this point, the patient is ready for extubation. At anytime, her head of bed is greater than 30 degrees. I would like her in her claReasultl TLSO brace. She must wear her [place] collar at all times and we will get a [place]ie collar for showers. She may begin to work with therapies as tolerated in her brace and collar. We will continue her anterior cervical FRANCIS drain as it put out 20 mL and continue with her thoracic FRANCIS drain that put out 70 mL since surgery. We will also start an 8-day Decadron taper as the patient's sugars and white blood cells are elevated. Her sodium is stable at 134. We will continue also with linezolid antibiotic and Ancef. Please call with any changes in patient's neurologic status, otherwise she appears to be progressing well neurologically. Job ID: [id number]
[2019-06-28] MEDS: Floranex Packet PO SCH (14:11)
[2019-06-28] MEDS: tiZANidine HCl 4 MG TAB PO PRN (14:11)
[2019-06-28] MEDS: Morphine 2 MG/ML SYRINGE SLOW IVP PRN ×2 (14:11→21:58)
[2019-06-28] MEDS: Lidocaine 5% Patch TD SCH (14:19)
--- NOTE | 2019-06-28 14:42 | PRG ---
DATE OF SERVICE: 06/28/2019 SUBJECTIVE: Ms. Bright had extensive intervention by Dr. Cummings with C-spine and thoracic spine areas of decompressive surgery and fusion/instrumentation, very complex intervention. She is now in the ICU. She is awake, has a neck collar in place, and she has pain in the areas of intervention, which is moderate. No headaches. No dyspnea or abdominal pain. OBJECTIVE: VITAL SIGNS: She has been afebrile. BP 180/70, pulse 83, respirations 18, O2 saturation 100. HEENT: Ocular movements conjugate. LUNGS: Clear. HEART: S1 and S2, regular rate. ABDOMEN: Soft. Not distended. EXTREMITIES: She is moving the lower extremities much better than when I saw her at the rehab when there was no movement whatsoever with the exception of very faint movements in the left toes, but now, she is able to lift her foot and has a pretty strong flexor and extension movement in the feet, both right and left side. LABORATORY DATA: White cell count is at 29.1, hemoglobin 11, platelets 350, creatinine 2.27. She is on cefazolin and Zyvox. Cultures are still pending. ASSESSMENT AND DISCUSSION: Extensive infection in the C-spine and thoracic spine area with protracted treatment with persistence of inflammatory process and worsening neurological findings at the rehab. The patient now has been transferred and had extensive intervention by Dr. Cummings and there is clear-cut neurological improvement 2 days after the procedure. Continue cefazolin and Zyvox. Waiting for the final results of cultures. Job ID: [id number]
--- NOTE | 2019-06-28 15:02 | OP ---
DATE OF PROCEDURE: 06/27/2019 EDUCATION PARAPROFESSIONAL: Mayuri Rdz PA-C This is a dirty wound. A modifier 57 should be added to the surgery as the decision to operate was made on the day I saw the patient. PREPROCEDURE DIAGNOSIS: Progression of osteo diskitis both in the cervical spine and thoracic spine with spinal cord compression in the cervical and thoracic spine with paraplegia with need for confucianism of alignment and decompression of the spinal cord both in the cervical and thoracic spines, emergent. POSTPROCEDURE DIAGNOSIS: Progression of osteo diskitis both in the cervical spine and thoracic spine with spinal cord compression in the cervical and thoracic spine with paraplegia with need for confucianism of alignment and decompression of the spinal cord both in the cervical and thoracic spines, emergent. PROCEDURE PERFORMED: 1. C6 corpectomy with reconstruction of space with fibular allograft, fibular strut graft. 2. C5-C7 plating. 3. C5-C6, C6-C7 diskectomies for debridement with sending of specimen to microbiology. 4. Anterior cervical fusion C5 to C7 with anterior fibular strut grafting C6. 5. Anterior cervical plate and screw fixation C5-C7 with closure over a FRANCIS drain. 6. Thoracic 7, 8, and 9 laminectomies, partial facetectomies, foraminotomies for decompression of spinal cord and sampling of bone from T8-T9 subject to osteo diskitis. 7. T6, T7, T9, T10, T11 pedicle screw millie fixation for stabilization and correction of deformity, treatment of thoracic fracture. 8. Allograft fusion T6, T7, T8, T9, T10, T11. DESCRIPTION OF PROCEDURE: After informed consent was obtained from the patient, patient was brought to the OR. Proper patient, pause, and identification were carried out. She was placed under excellent general endotracheal anesthesia and positioned supine on the OR table. A right anterior oblique josué allowed for approach to the C5-C7 segments. This area was sterilely cleansed, prepared and draped. Proper patient, pause, and identification were carried out. The cervical spine was kept in neutral position. We then opened the wound and proceeded lateral to the tracheoesophageal bundle, and medial to the right carotid sheath. We identified the C5-C7 segments and disintegrated C6 vertebral body, rendered useless due to infection. This was removed along with the C5-6 and C6-7 disk spaces and distraction opened up and a fibular strut placed for reconstruction of the cervical deformity. This allowed for correction of the patient's deformity from placement of anterior cervical plate and screw fixation to stabilize the segment. Hemostasis was maximized throughout and wound closed in anatomic layers following sprinkling of vancomycin powder and placement of a drain. There was no purulence identified. We then placed the patient prone with full spinal precautions kept. I draw a linear josué dorsally to allow for approach from the T6-T11 segments given her thoracic deformity and progression of the osteo diskitis at that segment and compression of the spinal cord. This area was sterilely cleansed, prepared, and draped. Proper patient, pause, and identification were carried out. The wound was then opened with combination of sharp, monopolar, and blunt dissection. We exposed the T6, T7, T8, T9, T10, T11 segments along with the spinous processes, lamina and transverse processes. It was quite clear, there was a disruption at T8-T9 as we anticipated. Pedicle screws were placed using standard anatomic landmarks. The T6, T7, T8 were skipped due to significant osteolysis due to the osteo diskitis process and shorter screws were placed at T9, longer screws at T10, T11. Rods were placed and final tightening occurred following gross and fluoroscopic visualization. We then did a T7, T8, T9 laminectomies, partial facetectomies. There was epidural phlegmon in the epidural space. There was no evidence of purulence, although all of this was sent for microbiology assessment. Copious irrigation and maximal hemostasis occurred throughout. Decortication of T6-T7, T8-T9, T10-T11 segments occurred with allograft placed laterally away from the infected region for arthrodesis. We then closed the wound in anatomic layers over drain. The patient was kept intubated and transported upstairs. Job ID: [id number]
[2019-06-28] MEDS: Atorvastatin Calcium 20 MG TAB PO SCH (19:51)
[2019-06-29] MEDS ORDERED: CEFAZOLIN 1 GM VIAL IVPB SCH (00:06)
[2019-06-29] MEDS: Morphine 2 MG/ML SYRINGE SLOW IVP PRN ×4 (01:34→22:20)
[2019-06-29] MEDS: Lidocaine Patch Removal 1 EACH TOP SCH (02:56)
[2019-06-29] MEDS: Dexamethasone 4 mg/ml Vial SLOW IVP SCH ×4 (06:26→22:20)
[2019-06-29] MEDS: HumaLOG 300 UNITS/3 ML VIAL SC PRN ×4 (06:29→23:54)
[2019-06-29 08:13] LABS: #Eosinphils 0.1 thou/uL (0.0-0.7); #Lymphocytes 1.8 thou/uL (1.20-3.40); #Monocytes 1.2 thou/uL (0.11-0.59); #Neutrophils 23.1 thou/uL (1.40-6.50); %Basophils 0.1 % (0.0-1.0); %Eosinophils 0.3 % (0.0-10.0); %Lymphocytes 6.8 % (21.0-51.0); %Monocytes 4.7 % (0.0-10.0); %Neutrophils 88.2 % (42.0-75.0); Hemoglobin 10.8 g/dL (12.0-16.0); Mean Corpuscular HGB CONC 31.1 g/dL (32.0-36.0); Mean Corpuscular Hemoglobin 30.7 pg (27.0-31.0); Mean Corpuscular Volume 98.7 fL (78.0-98.0); Mean Platelet Volume 7.2 fL (7.4-10.4); Platelet Count 294 thou/uL (130-400); RBC Distribution Width 14.1 % (11.5-14.5); Red Blood Cell (RBC) Count 3.52 mill/uL (4.20-5.40); White Blood Cell (WBC) Count 26.2 thou/uL (4.8-10.8)
[2019-06-29 08:36] LABS: Anion Gap 15 mmol/L (10-20); BUN (Urea Nitrogen) 30 mg/dL (9.8-20.1); Calc. Creatinine Clearance 25 mL/min (70-130); Calcium 8.8 mg/dL (7.8-10.44); Carbon Dioxide 23 mmol/L (22-29); Chloride 95 mmol/L (98-107); Estimated GFR-MDRD 14; Glucose 196 mg/dL (70-105); Potassium 4.3 mmol/L (3.5-5.1); Sodium 129 mmol/L (136-145)
[2019-06-29] MEDS: Ferrous Sulfate 325 MG TAB PO SCH ×2 (08:38→19:36)
[2019-06-29] MEDS: cloNIDine 0.1 MG TAB PO SCH ×2 (08:38→19:36)
[2019-06-29] MEDS: Amlodipine 5 MG TAB PO SCH (08:38)
[2019-06-29] MEDS: Senokot S 8.6-50 MG TAB PO SCH ×2 (08:39→19:35)
[2019-06-29] MEDS: Gemfibrozil 600 MG TAB PO SCH (08:39)
[2019-06-29] MEDS: Famotidine 20 MG TAB PO SCH (08:39)
[2019-06-29] MEDS: Sevelamer Carbonate 800 MG TAB PO SCH ×3 (08:39→18:24)
[2019-06-29] MEDS: Metoprolol Tartrate 25 MG TAB PO SCH ×2 (08:43→19:36)
[2019-06-29] MEDS: Polyethylene Glycol 3350 17 GM Packet PO SCH (08:43)
[2019-06-29] MEDS: Timolol 0.5% Ophth Soln 5 ml Bottle EA EYE SCH ×2 (08:44→19:44)
[2019-06-29] MEDS: Floranex Packet PO SCH (08:44)
--- NOTE | 2019-06-29 08:50 | PRG ---
DATE OF SERVICE: 06/29/2019 SUBJECTIVE: The patient is doing better, had no acute complaints. OBJECTIVE: VITAL SIGNS: Temperature 97.8, pulse 76, blood pressure 140/63, O2 saturation 100%. HEENT: Unremarkable. NECK: Has a C-collar in place. Hoarse voice. LUNGS: Clear. CARDIAC: S1, S2 regular. ABDOMEN: Soft. EXTREMITIES: No edema. LABORATORY DATA: I do not see any labs were done today. ASSESSMENT: 1. Status post multilevel spinal procedure. 2. Diskitis. 3. Status post mechanical ventilation. PLAN: The patient can be transferred out to the floor from my standpoint if okay from Neurosurgery, continue EzPAP with [facility]. Job ID: [id number]
[2019-06-29] MEDS ORDERED: Insulin Glargine 20 UNITS in Pre-Filled Syringe 1 EACH SC SCH (09:00)
[2019-06-29] MEDS ORDERED: CEFAZOLIN 3 GM, Admixture Fee 1 EACH in Sodium Chloride 0.9% 100 ML IVPB SCH (09:00)
[2019-06-29] MEDS: HYDROcodone/Acetaminophen 5/325 mg Tablet PO PRN ×2 (09:08→14:27)
--- NOTE | 2019-06-29 09:58 | PRG ---
DATE OF SERVICE: 06/29/2019 SUBJECTIVE: A 59-year-old female, being seen for end-stage renal disease. The patient denied nausea, vomiting, or chest pain. OBJECTIVE: See above. CONSTITUTIONAL: Awake, alert, in no acute distress. VITAL SIGNS: Pulse 75, breathing 16, blood pressure 130/73. GENERAL APPEARANCE AND MENTAL STATUS: Fair. HEAD/NECK: Normocephalic. Atraumatic. EYES: EOMI. No deformity. EARS: Clear. No ulcers. NOSE: Intact. No lesions. MOUTH: Clear. No discharge. THROAT: Clear. No exudate. LUNGS: Clear. No crackles. CARDIAC: S1, S2. No rub. ABDOMEN: Benign. Bowel sounds positive. GENITALIA/RECTUM: Weeks absent. BACK/EXTREMITIES: Edema 0+. NEUROLOGICAL: Alert and motor intact. SKIN: LYMPHATICS: LABORATORY DATA: Labs reviewed. ASSESSMENT AND PLAN: 1. Stage 6 chronic kidney disease, plan dialysis. 2. Hypertension, stable. 3. Anemia, stable. 4. Medication based on GFR appropriate. Job ID: [id number]
--- NOTE | 2019-06-29 10:00 | ULT ---
DOPPLER VENOUS ULTRASOUND OF BOTH LOWER EXTREMITIES; INDICATION: Immobility status post spinal surgery, concern for DVTs of both lower extremities. TECHNIQUE: Altman scale, color Doppler, and vascular duplex with spectral analysis was performed of the deep venou s structures of both lower extremities. The common femoral vein, superficial femoral vein, popliteal vein, posterior tibial vein, proximal greater saphenous, and proximal profunda veins were assessed bi laterally. FINDINGS: There is normal compression, flow, and augmentation seen within the deep venous structures of both lo wer extremities. IMPRESSION: No evidence of deep vein thrombosis within both lower extremities. POS: CET
--- NOTE | 2019-06-29 11:26 | PRG ---
DATE OF SERVICE: 06/28/2019 SUBJECTIVE: Patient was seen and examined at bedside and overnight events noted. Patient denies any shortness of breath or chest pain or palpitation. No history of nausea or vomiting or diarrhea or fever or chills or cramps. OBJECTIVE: GENERAL: This is an obese female, in no apparent distress. VITAL SIGNS: Temperature 98. Heart rate 83. Respiratory rate 20. Blood pressure 155/131. HEENT: Atraumatic, normocephalic. Oral mucosa is moist. NECK: Supple. CARDIOVASCULAR: S1, S2 heard. Rate and rhythm regular. RESPIRATORY: Clear to auscultation. GASTROINTESTINAL: Abdomen is soft. MUSCULOSKELETAL: No tenderness. No edema. DERMATOLOGIC: No skin rash. NEUROLOGIC: Alert and awake and oriented x3. No focal neurologic deficits. Moving all the extremities. PSYCHIATRIC: Mood and affect normal. LABORATORY DATA: Potassium 4.3, BUN is 18, and creatinine is 2.2. ASSESSMENT AND PLAN: 1. End-stage renal disease. Continue hemodialysis on Saturday, Saturday, Saturday. 2. Edema, controlled. 3. History of hypertension. 4. Chronic anemia. Labs are stable. Had dialysis yesterday, tolerated well. We will continue dialysis on Saturday, Saturday, and Saturday. Job ID: [id number]
[2019-06-29] MEDS: Linezolid 600 MG in Premix Bag 1 BAG IVPB SCH ×2 (12:44→22:19)
[2019-06-29] MEDS: Lidocaine 5% Patch TD SCH (14:47)
--- NOTE | 2019-06-29 15:24 | PRG ---
DATE OF SERVICE: 06/29/2019 Postoperative recheck. Ms. Bright is postoperative day #2 having undergone cervical corpectomy and fusion with thoracic laminectomies and fusion. The patient is doing well. She is extremely hoarse. She has been slowly advancing diet. FRANCIS drain last 24 hours as well as the thoracic spine putting out 100 mL over the last 24 hours. We will keep these in and she remains on Ancef and . She must be on her [place] collar at 100% of the time and a clamshell TLSO brace anytime her head of bed is greater than 30 degrees and when she is out of bed. Her main issue now is mobilization. We did do bilateral lower extremity ultrasound that was negative for DVT. Overall, the patient is antigravity in the bilateral lower extremities and has excellent strength in the bilateral upper extremities. Dr. Cummings and our team is very pleased with the way the patient is progressing. We will continue to monitor, but again mobilization will be chavez. Job ID: [id number]
[2019-06-29] MEDS: CEFAZOLIN 2 GM in Premix Bag 1 BAG IVPB SCH (18:24)
[2019-06-29] MEDS: Atorvastatin Calcium 20 MG TAB PO SCH (19:36)
--- NOTE | 2019-06-29 20:37 | PDOC.HOSPP ---
- Subjective Subjective: Doing well other than some pain issues. - Objective Vital Signs & Weight: Vital Signs (12 hours) Temp Pulse Pulse Pulse Resp BP BP 06/29/19 20:00 97.6 F 06/29/19 19:36 151/75 H 06/29/19 18:26 73 19 06/29/19 16:00 97.1 F L 06/29/19 14:19 75 23 H 06/29/19 13:48 75 77 142/69 H 06/29/19 11:19 70 16 BP Pulse Ox 06/29/19 20:00 06/29/19 19:36 06/29/19 18:26 06/29/19 16:00 06/29/19 14:19 06/29/19 13:48 103/59 L 06/29/19 11:19 96 Weight Admit Weight 187 lb Weight 187 lb 6.287 oz Most Recent Monitor Data Heart Rate from ECG 70 NIBP 179/71 NIBP BP-Mean 107 Respiration from ECG 13 SpO2 99 I&O: 06/28/19 06/29/19 06/30/19 06:59 06:59 06:59 Intake Total 511.5 1624.9 800 Output Total 720 295 280 Balance -208.5 1329.9 520 Result Diagrams: 06/29/19 08:06 06/29/19 08:06 Additional Labs: Accuchecks 06/29/19 06/29/19 06/29/19 19:19 12:30 06:32 POC Glucose 351 H 275 H 207 H 06/28/19 06/27/19 06/27/19 23:23 23:51 17:56 POC Glucose 249 H 125 H 97 06/27/19 06/27/19 06/27/19 16:45 15:30 14:13 POC Glucose 164 H 202 H 247 H Hospitalist ROS - Medication Medications: Active Medications Generic Name Dose Route Start Last Admin Trade Name Freq PRN Reason Stop Dose Admin Hydrocodone Bitart/Acetaminophen 1 tab 06/28/19 10:01 06/29/19 14:27 [place] 5/325 PO 1 tab Q4H PRN Administration Moderate Pain (4-6) Acidophilus 1 gm 06/27/19 09:00 06/29/19 08:44 Floranex PO 1 gm DAILY HOMERO Administration Albuterol/Ipratropium 3 ml 06/28/19 10:30 06/29/19 18:26 Duoneb EZPAP 3 ml [id number] HOMERO Administration Amlodipine Besylate 5 mg 06/27/19 09:00 06/29/19 08:38 Norvasc PO 5 mg DAILY HOMERO Administration Atorvastatin Calcium 20 mg 06/27/19 21:00 06/29/19 19:36 Lipitor PO 20 mg HS HOMERO Administration Clonidine 0.1 mg 06/27/19 09:00 06/29/19 19:36 Catapres PO 0.1 mg BID HOMERO Administration Dexamethasone 4 mg 06/28/19 12:00 06/29/19 18:24 Decadron SLOW IVP 06/30/19 06:01 4 mg Q6HR HOMERO Administration Famotidine 20 mg 06/27/19 09:00 06/29/19 08:39 Pepcid PO 20 mg DAILY HOMERO Administration Ferrous Sulfate 325 mg 06/27/19 09:00 06/29/19 19:36 Feosol PO 325 mg BID HOMERO Administration Gemfibrozil 600 mg 06/27/19 09:00 06/29/19 08:39 Lopid PO 600 mg DAILY HOMERO Administration Linezolid 600 mg/ Device 300 mls @ 150 mls/hr 06/27/19 11:00 06/29/19 12:44 IVPB 300 mls 1100,2300 HOMERO Administration Insulin Glargine 20 units/ 0.2 mls @ 0 mls/hr 06/29/19 09:00 06/29/19 08:42 Miscellaneous Medication SC 0.2 mls QAM HOMERO Administration Cefazolin Sodium/Dextrose 2 gm 50 mls @ 100 mls/hr 06/29/19 17:00 06/29/19 18 :24 / Device IVPB 50 mls 1700 HOMERO Administration Insulin Human Lispro 0 units 06/28/19 06:22 06/29/19 19:16 Humalog SC 10 unit .MODERATE SLIDING SC PRN Administration MODERATE SLIDING SCALE Protocol Lidocaine 1 patch 06/27/19 14:00 06/29/19 14:47 Lidoderm 5% Patch TD 1 patch 1400 HOMERO Administration Metoprolol Tartrate 25 mg 06/27/19 09:00 06/29/19 19:36 Lopressor PO 25 mg BID HOMERO Administration Miscellaneous Medication 1 each 06/27/19 02:00 06/29/19 02:56 Lidocaine Patch Removal TOP 1 each 0200 HOMERO Administration Morphine Sulfate 2 mg 06/28/19 10:01 06/29/19 12:37 Morphine SLOW IVP 2 mg Q2H PRN Administration Severe Pain (7-10) Ondansetron HCl 4 mg 06/26/19 23:07 06/27/19 19:39 Zofran IVP 4 mg Q6H PRN Administration Nausea/Vomiting Polyethylene Glycol 17 gm 06/27/19 09:00 06/29/19 08:43 Miralax PO 17 gm DAILY HOMERO Administration Senna/Docusate Sodium 2 tab 06/29/19 09:00 06/29/19 19:35 Senokot S PO 2 tab BID HOMERO Administration Sertraline HCl 100 mg 06/27/19 21:00 06/29/19 19:36 Zoloft PO 100 mg HS HOMERO Administration Sevelamer Carbonate 1,600 mg 06/27/19 08:00 06/29/19 18:24 Renvela PO 1,600 mg TID-WM HOMERO Administration Timolol Maleate 1 drop 06/27/19 09:00 06/29/19 19:44 Timoptic 0.5% Ophth Soln EA EYE 1 drop BID HOMERO Administration Tizanidine HCl 4 mg 06/26/19 23:07 06/28/19 14:11 Zanaflex PO 4 mg Q8HR PRN Administration Muscle Spasm - Exam General Appearance: NAD Neck - other findings: Brace, FRANCIS drain. Heart: RRR, no murmur, no gallops, no rubs, normal peripheral pulses Respiratory: CTAB, no wheezes, no rales, no ronchi, normal chest expansion, no tachypnea, normal percussion Gastrointestinal: soft, non-tender, non-distended, normal bowel sounds, no palpable masses, no hepatomegaly, no splenomegaly, no bruit Extremities: no cyanosis, no clubbing, no edema Skin: normal turgor, no lesions, no rashes Neurological: no focal deficits Musculoskeletal: normal tone Psychiatric: normal affect Hosp A/P (1) Cervical discitis Code(s): M46.42 - DISCITIS, UNSPECIFIED, CERVICAL REGION Status: Acute (2) Osteomyelitis Code(s): M86.9 - OSTEOMYELITIS, UNSPECIFIED Status: Acute Qualifiers: Osteomyelitis type: unspecified type Osteomyelitis location: other site Qualified Code(s): M86.9 - Osteomyelitis, unspecified (3) DM2 (diabetes mellitus, type 2) Status: Chronic Qualifiers: Diabetes mellitus termite control representative insulin use: with termite control representative use Diabetes mellitus complication status: with kidney complications Diabetes mellitus complication detail: with chronic kidney disease Chronic kidney disease stage : on chronic dialysis Qualified Code(s): E11.22 - Type 2 diabetes mellitus with diabetic chronic kidney disease; N18.6 - End stage renal disease; Z79.4 - terminal clerk (current) use of insulin; Z99.2 - Dependence on renal dialysis (4) Dyslipidemia Code(s): E78.5 - HYPERLIPIDEMIA, UNSPECIFIED Status: Chronic (5) ESRD on hemodialysis Code(s): N18.6 - END STAGE RENAL DISEASE; Z99.2 - DEPENDENCE ON RENAL DIALYSIS Status: Chronic (6) Hypertension Code(s): I10 - ESSENTIAL (PRIMARY) HYPERTENSION Status: Chronic Qualifiers: Hypertension type: essential hypertension Qualified Code(s): I10 - Essential (primary) hypertension (7) UTI (urinary tract infection) Status: Acute (8) Hyponatremia Code(s): E87.1 - HYPO-OSMOLALITY AND HYPONATREMIA Status: Acute (9) Discitis Code(s): M46.40 - DISCITIS, UNSPECIFIED, SITE UNSPECIFIED Status: Acute Qualifiers: Spinal region: thoracic Qualified Code(s): M46.44 - Discitis, unspecified, thoracic region - Plan Doing well post-op. Neurosurg team managing. Continue HD via nephrology. Continue IV abx per ID. Pain management. Blood sugars a little high. If persists, increase coverage.
[2019-06-30] MEDS: Dexamethasone 4 mg/ml Vial SLOW IVP SCH ×3 (04:48→17:29)
[2019-06-30] MEDS: Morphine 2 MG/ML SYRINGE SLOW IVP PRN ×4 (04:48→22:16)
[2019-06-30] MEDS: Lidocaine Patch Removal 1 EACH TOP SCH (04:49)
[2019-06-30] MEDS: HumaLOG 300 UNITS/3 ML VIAL SC PRN ×3 (06:29→21:41)
[2019-06-30 07:44] LABS: Mean Corpuscular Hemoglobin 31.2 pg (27.0-31.0); Mean Corpuscular Volume 97.5 fL (78.0-98.0); Mean Platelet Volume 7.2 fL (7.4-10.4); Platelet Count 303 thou/uL (130-400); RBC Distribution Width 13.9 % (11.5-14.5); Red Blood Cell (RBC) Count 3.55 mill/uL (4.20-5.40); White Blood Cell (WBC) Count 23.9 thou/uL (4.8-10.8)
[2019-06-30 07:52] LABS: Anion Gap 16 mmol/L (10-20); BUN (Urea Nitrogen) 44 mg/dL (9.8-20.1); Band 17 % (5-11); Calc. Creatinine Clearance 23 mL/min (70-130); Calcium 8.9 mg/dL (7.8-10.44); Carbon Dioxide 25 mmol/L (22-29); Chloride 93 mmol/L (98-107); Estimated GFR-MDRD 13; Glucose 302 mg/dL (70-105); Lymphocytes 3 % (21-51); MDiff Complete? YES; Monocytes 3 % (0-10); Neutrophil 77 % (42-75); Platelet Morphology Comment Appears Adequate; Potassium 4.5 mmol/L (3.5-5.1); RBC Morphology Normal; Sodium 129 mmol/L (136-145)
[2019-06-30] MEDS: HYDROcodone/Acetaminophen 5/325 mg Tablet PO PRN ×4 (08:16→21:41)
[2019-06-30] MEDS: Metoprolol Tartrate 25 MG TAB PO SCH ×2 (08:17→20:25)
[2019-06-30] MEDS: cloNIDine 0.1 MG TAB PO SCH ×2 (08:17→20:25)
[2019-06-30] MEDS: Amlodipine 5 MG TAB PO SCH (08:17)
[2019-06-30] MEDS: Sevelamer Carbonate 800 MG TAB PO SCH ×3 (08:43→16:51)
[2019-06-30] MEDS: Gemfibrozil 600 MG TAB PO SCH (08:43)
[2019-06-30] MEDS: Senokot S 8.6-50 MG TAB PO SCH ×2 (08:43→20:19)
[2019-06-30] MEDS: Ferrous Sulfate 325 MG TAB PO SCH ×2 (08:44→20:19)
[2019-06-30] MEDS: Famotidine 20 MG TAB PO SCH (08:44)
[2019-06-30] MEDS: Polyethylene Glycol 3350 17 GM Packet PO SCH (08:48)
[2019-06-30] MEDS: Insulin Glargine 30 UNITS in Pre-Filled Syringe 1 EACH SC SCH (08:49)
[2019-06-30] MEDS: Floranex Packet PO SCH (08:49)
[2019-06-30] MEDS ORDERED: Enoxaparin Sodium 40 MG/0.4 ML SYRINGE SC SCH (09:00)
--- NOTE | 2019-06-30 09:06 | PRG ---
DATE OF SERVICE: 06/30/2019 SUBJECTIVE: The patient seems to be doing reasonably well, had no acute complaints. OBJECTIVE: VITAL SIGNS: Temperature is 97.9, pulse 63, blood pressure 187/81, O2 saturation 100%. HEENT: Unremarkable. NECK: C-collar in place. LUNGS: Clear. CARDIAC: S1 and S2. Regular. ABDOMEN: Soft. EXTREMITIES: No edema. LABORATORY DATA: White blood cell count 23.9, hematocrit 34.6, platelet count 303. Sodium 129, potassium 4.5, chloride 93, CO2 of 25, BUN 44, creatinine 3.6, glucose 302. ASSESSMENT: 1. Status post back operation. 2. Chronic renal failure. 3. Status post respiratory failure, on mechanical ventilation. PLAN: The patient can be moved to IMCU or to the floor at Neurosurgery's discretion. Pulmonary status is stable. Receiving antibiotics and dialysis. Job ID: [id number]
[2019-06-30] MEDS ORDERED: Heparin 10,000 UNITS/ 10 ML VIAL ONE (09:29)
[2019-06-30] MEDS: Timolol 0.5% Ophth Soln 5 ml Bottle EA EYE SCH ×2 (09:38→21:56)
--- NOTE | 2019-06-30 10:07 | PRG ---
DATE OF SERVICE: 06/30/2019 SUBJECTIVE: A 59-year-old female, being seen for end-stage renal disease. The patient denied nausea, vomiting, or chest pain. OBJECTIVE: See above. Awake, alert, in no acute distress. VITAL SIGNS: Afebrile, pulse 76, breathing 16, and blood pressure 165/71. GENERAL APPEARANCE AND MENTAL STATUS: Fair. HEAD/NECK: Normocephalic. Atraumatic. EYES: EOMI. No deformity. EARS: Clear. No ulcers. NOSE: Intact. No lesions. MOUTH: Clear. No discharge. THROAT: Clear. No exudate. LUNGS: Clear. No crackles. CARDIAC: S1, S2. No rub. ABDOMEN: Benign. Bowel sounds positive. GENITALIA/RECTUM: Weeks absent. BACK/EXTREMITIES: Edema 0+. NEUROLOGICAL: Alert and motor intact. SKIN: LYMPHATICS: LABORATORY DATA: Reviewed. ASSESSMENT AND PLAN: 1. Stage 6 chronic kidney disease, plan dialysis per schedule. 2. Hypertension, stable. 3. Anemia, stable. 4. Medication based on GFR appropriate. Job ID: [id number]
[2019-06-30] MEDS: Sodium Chloride 0.9% 1,000 ML IV SCH (10:40)
[2019-06-30] MEDS: Linezolid 600 MG in Premix Bag 1 BAG IVPB SCH (10:44)
--- NOTE | 2019-06-30 10:50 | PRG ---
DATE OF SERVICE: 06/30/2019 Ms. Bright is postoperative day #3 after undergoing cervical corpectomy and fusion with thoracic laminectomies and fusion on 06/27/2019. The patient continues to do well. She remains very hoarse, but has no complaints of neck pain. She only reports pain in her mid back. She denies any pain in her arms or legs. She is able to move her arms and legs without difficulty, and strength seems to be improving in her legs. She has been slowly advancing her diet, but tolerating p.o. Her anterior cervical FRANCIS drain has total output of 7 mL over the last 24 hours. Her posterior thoracic FRANCIS drain put out 60 mL overnight and 120 mL over the last 24 hours. We will continue to leave both of these drains in place for today. The patient remains on both Ancef and linezolid. We are pending her cultures; however, at this time, her vertebral cultures have yielded no growth. Her urine culture revealed vancomycin-resistant Enterococcus and yeast. The patient's blood pressure has been elevated from the 150s up into the 190s systolic. I have ordered p.r.n. hydralazine q.15 minutes as needed for systolic greater than 160 and/or diastolic greater than 100. The patient was started on Lovenox 40 mg once daily for DVT prophylaxis. The patient states that she was able to sit up with Physical Therapy yesterday; however, she has not yet been able to stand or ambulate. Her sodium has been 129 both yesterday and today. Therefore, we will hold free water intake and encourage Gatorade. I have also started normal saline IV fluids. Plan at this time is to keep the patient in critical care unit today in order to better improve her blood pressure control and monitor her sodium levels. Once these 2 things have improved, then we will hopefully move her to the floor tomorrow. We would appreciate our medical colleagues assisting with blood pressure control. We will continue to encourage her mobilization with physical therapy. Please call our service for any neurologic changes or other concerns. Job ID: [id number]
[2019-06-30] MEDS: Acetaminophen/Codeine 30-300mg Tablet PO PRN (11:12)
--- NOTE | 2019-06-30 12:23 | PDOC.HOSPP ---
- Subjective Encounter Date: 06/30/19 Encounter Time: 12:18 Subjective: Feeling better in general. Reports pain in the middle of the back. Has not eaten much. Had two ensure. - Objective Vital Signs & Weight: Vital Signs (12 hours) Temp Pulse Resp BP Pulse Ox 06/30/19 11:55 98.3 F 06/30/19 10:19 65 16 100 06/30/19 09:38 64 169/71 H 06/30/19 08:17 64 193/74 H 06/30/19 07:27 100 06/30/19 07:00 97.9 F 06/30/19 04:00 97.7 F 06/30/19 02:48 64 14 97 Weight Admit Weight 187 lb Weight 191 lb 12.835 oz Most Recent Monitor Data Heart Rate from ECG 66 NIBP 137/106 NIBP BP-Mean 116 Respiration from ECG 14 SpO2 100 I&O: 06/29/19 06/30/19 07/01/19 06:59 06:59 06:59 Intake Total 1624.9 1356 0 Output Total 295 812 100 Balance 1329.9 544 -100 Result Diagrams: 06/30/19 07:10 06/30/19 07:10 Additional Labs: Accuchecks 06/30/19 06/30/19 06/29/19 10:50 06:29 23:57 POC Glucose 138 H 301 H 414 H 06/29/19 06/29/19 06/27/19 19:19 12:30 17:56 POC Glucose 351 H 275 H 97 06/27/19 06/27/19 06/27/19 16:45 15:30 14:13 POC Glucose 164 H 202 H 247 H Hospitalist ROS - Medication Medications: Active Medications Generic Name Dose Route Start Last Admin Trade Name Freq PRN Reason Stop Dose Admin Acetaminophen/Codeine Phosphate 1 tab 06/28/19 10:01 06/30/19 11:12 Tylenol #3 PO 1 tab Q4H PRN Administration Mild Pain (1-3) Hydrocodone Bitart/Acetaminophen 1 tab 06/28/19 10:01 06/30/19 08:16 [place] 5/325 PO 1 tab Q4H PRN Administration Moderate Pain (4-6) Acidophilus 1 gm 06/27/19 09:00 06/30/19 08:49 Floranex PO 1 gm DAILY HOMERO Administration Albuterol/Ipratropium 3 ml 06/28/19 10:30 06/30/19 10:19 Duoneb EZPAP 3 ml [id number] HOMERO Administration Amlodipine Besylate 5 mg 06/27/19 09:00 06/30/19 08:17 Norvasc PO 5 mg DAILY HOMERO Administration Atorvastatin Calcium 20 mg 06/27/19 21:00 06/29/19 19:36 Lipitor PO 20 mg HS HOMERO Administration Clonidine 0.1 mg 06/27/19 09:00 06/30/19 08:17 Catapres PO 0.1 mg BID HOMERO Administration Dexamethasone 3 mg 06/30/19 12:00 06/30/19 11:34 Decadron SLOW IVP 07/02/19 06:01 3 mg Q6HR HOMERO Administration Enoxaparin Sodium 40 mg 06/30/19 09:00 06/30/19 08:48 Lovenox SC 40 mg 0900 HOMERO Administration Famotidine 20 mg 06/27/19 09:00 06/30/19 08:44 Pepcid PO 20 mg DAILY HOMERO Administration Ferrous Sulfate 325 mg 06/27/19 09:00 06/30/19 08:44 Feosol PO 325 mg BID HOMERO Administration Gemfibrozil 600 mg 06/27/19 09:00 06/30/19 08:43 Lopid PO 600 mg DAILY HOMERO Administration Linezolid 600 mg/ Device 300 mls @ 150 mls/hr 06/27/19 11:00 06/30/19 10:44 IVPB 300 mls 1100,2300 HOMERO Administration Cefazolin Sodium/Dextrose 2 gm 50 mls @ 100 mls/hr 06/29/19 17:00 06/29/19 18 :24 / Device IVPB 50 mls 1700 HOMERO Administration Insulin Glargine 30 units/ 0.3 mls @ 0 mls/hr 06/30/19 09:00 06/30/19 08:49 Miscellaneous Medication SC 0.3 mls QAM HOMERO Administration Sodium Chloride 1,000 mls @ 75 mls/hr 06/30/19 10:30 06/30/19 10:40 Normal Saline 0.9% IV 1,000 mls .[id number] HOMERO Administration Insulin Human Lispro 0 units 06/28/19 06:22 06/30/19 06:29 Humalog SC 8 unit .MODERATE SLIDING SC PRN Administration MODERATE SLIDING SCALE Protocol Lidocaine 1 patch 06/27/19 14:00 06/29/19 14:47 Lidoderm 5% Patch TD 1 patch 1400 HOMERO Administration Metoprolol Tartrate 25 mg 06/27/19 09:00 06/30/19 08:17 Lopressor PO 25 mg BID HOMERO Administration Miscellaneous Medication 1 each 06/27/19 02:00 06/30/19 04:49 Lidocaine Patch Removal TOP 1 each 0200 HOMERO Administration Morphine Sulfate 2 mg 06/28/19 10:01 06/30/19 11:33 Morphine SLOW IVP 2 mg Q2H PRN Administration Severe Pain (7-10) Ondansetron HCl 4 mg 06/26/19 23:07 06/27/19 19:39 Zofran IVP 4 mg Q6H PRN Administration Nausea/Vomiting Polyethylene Glycol 17 gm 06/27/19 09:00 06/30/19 08:48 Miralax PO 17 gm DAILY HOMERO Administration Senna/Docusate Sodium 2 tab 06/29/19 09:00 06/30/19 08:43 Senokot S PO 2 tab BID HOMERO Administration Sertraline HCl 100 mg 06/27/19 21:00 06/29/19 19:36 Zoloft PO 100 mg HS HOMERO Administration Sevelamer Carbonate 1,600 mg 06/27/19 08:00 06/30/19 11:34 Renvela PO 1,600 mg TID-WM HOMERO Administration Timolol Maleate 1 drop 06/27/19 09:00 06/30/19 09:38 Timoptic 0.5% Ophth Soln EA EYE 1 drop BID HOMERO Administration Tizanidine HCl 4 mg 06/26/19 23:07 06/28/19 14:11 Zanaflex PO 4 mg Q8HR PRN Administration Muscle Spasm - Exam General Appearance: NAD, awake alert Heart: RRR, no murmur, no gallops, no rubs, normal peripheral pulses Respiratory: CTAB, no wheezes, no rales, no ronchi, normal chest expansion, no tachypnea, normal percussion Gastrointestinal: soft, non-tender, non-distended, normal bowel sounds, no palpable masses, no hepatomegaly, no splenomegaly, no bruit Extremities: no cyanosis, no clubbing, no edema Skin: normal turgor Musculoskeletal: normal tone, normal strength Psychiatric: normal affect, normal behavior, A&O x 3 Hosp A/P (1) Cervical discitis Code(s): M46.42 - DISCITIS, UNSPECIFIED, CERVICAL REGION Status: Acute (2) Osteomyelitis Code(s): M86.9 - OSTEOMYELITIS, UNSPECIFIED Status: Acute Qualifiers: Osteomyelitis type: unspecified type Osteomyelitis location: other site Qualified Code(s): M86.9 - Osteomyelitis, unspecified (3) DM2 (diabetes mellitus, type 2) Status: Chronic Qualifiers: Diabetes mellitus long term care phlebotomist insulin use: with longterm use Diabetes mellitus complication status: with kidney complications Diabetes mellitus complication detail: with chronic kidney disease Chronic kidney disease stage : on chronic dialysis Qualified Code(s): E11.22 - Type 2 diabetes mellitus with diabetic chronic kidney disease; N18.6 - End stage renal disease; Z79.4 - jail (current) use of insulin; Z99.2 - Dependence on renal dialysis (4) Dyslipidemia Code(s): E78.5 - HYPERLIPIDEMIA, UNSPECIFIED Status: Chronic (5) ESRD on hemodialysis Code(s): N18.6 - END STAGE RENAL DISEASE; Z99.2 - DEPENDENCE ON RENAL DIALYSIS Status: Chronic (6) Hypertension Code(s): I10 - ESSENTIAL (PRIMARY) HYPERTENSION Status: Chronic Qualifiers: Hypertension type: essential hypertension Qualified Code(s): I10 - Essential (primary) hypertension (7) UTI (urinary tract infection) Status: Acute (8) Hyponatremia Code(s): E87.1 - HYPO-OSMOLALITY AND HYPONATREMIA Status: Acute (9) Discitis Code(s): M46.40 - DISCITIS, UNSPECIFIED, SITE UNSPECIFIED Status: Acute Qualifiers: Spinal region: thoracic Qualified Code(s): M46.44 - Discitis, unspecified, thoracic region - Plan Doing well post-op. Neurosurg team managing. Continue HD via nephrology. Stable. Was able to pull off 1.7 liters today. BP is very dialysis/volume dependent. Much improved today after dialysis. PRN hydralazine ordered, but has not required any. Blood sugars very high in light of the high dose steroids. Insulin dosing increased. Much improved this morning. Continue IV abx per ID. Has VRE UTI. On Linezolid for that. Pain management.
[2019-06-30] MEDS: Lidocaine 5% Patch TD SCH (13:31)
[2019-06-30] MEDS: hydrALAZINE 20 MG/ML VIAL SLOW IVP PRN (15:08)
[2019-06-30] MEDS: CEFAZOLIN 2 GM in Premix Bag 1 BAG IVPB SCH (16:50)
--- NOTE | 2019-06-30 16:54 | PRG ---
DATE OF SERVICE: 06/30/2019 SUBJECTIVE: Ms. Bright has her brace in the chest area. She was transferred to neuro bed. OBJECTIVE: VITAL SIGNS: She is afebrile. Blood pressure 180/67, pulse 68. NEUROLOGIC: She is able to move extremities. LUNGS: Clear. HEART: S1 and S2. Regular rate. ABDOMEN: Soft. May be moving to floor tomorrow. LABORATORY DATA: White cell count is 23.9, hemoglobin 11, platelets 303. Creatinine is 3.67. Cultures from June 27 samples from the cervical intervertebral tissue, no growth 3 days now. ASSESSMENT AND PLAN: The Weeks output with VRE and Antonella albicans. I do not think those are need to be treated, but most likely reflect colonization. We will discontinue linezolid and continue with cefazolin as previously given 2 g daily plus 500 mg after each dialysis. Job ID: [id number]
[2019-06-30] MEDS: Atorvastatin Calcium 20 MG TAB PO SCH (20:19)
[2019-07-01] MEDS: Dexamethasone 4 mg/ml Vial SLOW IVP SCH ×5 (00:31→23:24)
[2019-07-01] MEDS: HYDROcodone/Acetaminophen 5/325 mg Tablet PO PRN ×5 (01:47→22:15)
[2019-07-01] MEDS: Sodium Chloride 0.9% 1,000 ML IV SCH (01:48)
[2019-07-01 03:45] LABS: #Eosinphils 0.1 thou/uL (0.0-0.7); #Lymphocytes 1.3 thou/uL (1.20-3.40); #Monocytes 1.2 thou/uL (0.11-0.59); #Neutrophils 15.6 thou/uL (1.40-6.50); %Basophils 0.1 % (0.0-1.0); %Eosinophils 0.8 % (0.0-10.0); %Lymphocytes 7.3 % (21.0-51.0); %Monocytes 6.5 % (0.0-10.0); %Neutrophils 85.4 % (42.0-75.0); Hemoglobin 10.8 g/dL (12.0-16.0); Mean Corpuscular HGB CONC 29.8 g/dL (32.0-36.0); Mean Corpuscular Hemoglobin 29.2 pg (27.0-31.0); Mean Platelet Volume 8.6 fL (7.4-10.4); Platelet Count 227 thou/uL (130-400); RBC Distribution Width 14.2 % (11.5-14.5); White Blood Cell (WBC) Count 18.2 thou/uL (4.8-10.8)
[2019-07-01 04:14] LABS: Anion Gap 16 mmol/L (10-20); BUN (Urea Nitrogen) 30 mg/dL (9.8-20.1); Calc. Creatinine Clearance 37 mL/min (70-130); Calcium 8.4 mg/dL (7.8-10.44); Carbon Dioxide 21 mmol/L (22-29); Chloride 99 mmol/L (98-107); Estimated GFR-MDRD 22; Glucose 254 mg/dL (70-105); Potassium 4.1 mmol/L (3.5-5.1); Sodium 132 mmol/L (136-145)
[2019-07-01] MEDS: Lidocaine Patch Removal 1 EACH TOP SCH (04:48)
[2019-07-01] MEDS: HumaLOG 300 UNITS/3 ML VIAL SC PRN ×3 (05:47→16:16)
--- NOTE | 2019-07-01 08:33 | PRG ---
DATE OF SERVICE: 07/01/2019 SUBJECTIVE: She is in good spirits. She is up in a chair today. She has her turtle shell on along with her neck brace. OBJECTIVE: VITAL SIGNS: Her temperature is 97.5, pulse 72, blood pressure 189/93, O2 saturation 97%. HEENT: Unremarkable. NECK: Brace in place. LUNGS: Clear. CARDIAC: S1 and S2, regular. ABDOMEN: Soft. EXTREMITIES: No edema. LABORATORY DATA: White blood cell count 18.2, hematocrit 36.2, and platelet count 227. Sodium 132, potassium 4.1, chloride 99, CO2 BUN 30, creatinine 2.3, and glucose 254. ASSESSMENT: 1. Status post mechanical ventilation in the postoperative period. 2. Multilevel diskitis. 3. Chronic renal failure. PLAN: From my standpoint, she can be transferred out to the floor. Her respiratory status is stable. Continue antibiotics per Dr. Ward. Job ID: [id number]
[2019-07-01] MEDS: Amlodipine 5 MG TAB PO SCH (08:44)
[2019-07-01] MEDS: cloNIDine 0.1 MG TAB PO SCH ×3 (08:45→20:29)
[2019-07-01] MEDS: Senokot S 8.6-50 MG TAB PO SCH ×2 (08:45→20:19)
[2019-07-01] MEDS: Sevelamer Carbonate 800 MG TAB PO SCH ×3 (08:45→16:16)
[2019-07-01] MEDS: Gemfibrozil 600 MG TAB PO SCH (08:46)
[2019-07-01] MEDS: Metoprolol Tartrate 25 MG TAB PO SCH ×2 (08:46→20:19)
[2019-07-01] MEDS: Enoxaparin Sodium 30 MG/0.3 ML SYRINGE SC SCH (08:46)
[2019-07-01] MEDS: Famotidine 20 MG TAB PO SCH (08:46)
[2019-07-01] MEDS: Floranex Packet PO SCH (09:02)
[2019-07-01] MEDS: Insulin Glargine 30 UNITS in Pre-Filled Syringe 1 EACH SC SCH (09:05)
[2019-07-01] MEDS: Ferrous Sulfate 325 MG TAB PO SCH ×2 (09:06→20:19)
[2019-07-01] MEDS: Polyethylene Glycol 3350 17 GM Packet PO SCH (09:06)
[2019-07-01] MEDS: Timolol 0.5% Ophth Soln 5 ml Bottle EA EYE SCH ×2 (09:11→20:19)
--- NOTE | 2019-07-01 09:54 | PRG ---
DATE OF SERVICE: 07/01/2019 SUBJECTIVE: A 59-year-old female, being seen for end-stage kidney disease. The patient denied nausea, vomiting, or chest pain. OBJECTIVE: CONSTITUTIONAL: The patient is awake and alert. VITAL SIGNS: Pulse 74, breathing 16, and blood pressure 215/88. GENERAL APPEARANCE AND MENTAL STATUS: Fair. HEAD/NECK: Normocephalic. Atraumatic. EYES: EOMI. No deformity. EARS: Clear. No ulcers. NOSE: Intact. No lesions. MOUTH: Clear. No discharge. THROAT: Clear. No exudate. LUNGS: Clear. No crackles. CARDIAC: S1, S2. No rub. ABDOMEN: Benign. Bowel sounds positive. GENITALIA/RECTUM: Weeks absent. BACK/EXTREMITIES: Edema 0+. NEUROLOGICAL: Alert and motor intact. SKIN: LYMPHATICS: LABORATORY DATA: Reviewed. ASSESSMENT AND PLAN: 1. Stage 6 chronic kidney disease. Plan dialysis per schedule. 2. Hypertension, stable. We would recommend titrating the patient's blood pressure medications. 3. Anemia, stable. Job ID: [id number]
[2019-07-01] MEDS: hydrALAZINE 20 MG/ML VIAL SLOW IVP PRN (10:41)
[2019-07-01] MEDS: Morphine 2 MG/ML SYRINGE SLOW IVP PRN ×3 (11:03→23:34)
--- NOTE | 2019-07-01 13:29 | PRG ---
DATE OF SERVICE: 07/01/2019 SUBJECTIVE: Ms. Bright is postop day #4 after undergoing cervical corpectomy and fusion with thoracic laminectomies and fusion. The patient seems to be progressing in her lower extremity movement with each day. She remains hoarse, but has no complaints of neck pain. She does continue to report mid back pain. She denies arm or leg pain. She continues to have good movement in her arms, and she seems to be moving her legs more. She was up in a neuro chair upon my evaluation this morning. She was eating breakfast without difficulty. However, I recommended that she is to avoid meats, bread, and crunchy foods to improve ease of swallowing. The patient states understanding. I also recommended restricting free water intake and encouragement of Gatorade in order to continue to improve her sodium level. Her sodium level has improved from 129 to 132 today. Her white blood cell count is downtrending from 23.9 to 18.2. Her blood pressure is somewhat labile and seems to be volume dependent, given they improve with dialysis. Therefore, Dr. Ward has taken the patient off linezolid, but has continued Ancef. Her anterior cervical FRANCIS drain had zero output overnight, and her posterior thoracic drain had 40 mL output overnight. We will continue to leave both of these drains in place. The patient remains on Lovenox and Decadron taper. Given the patient's sodium level is improving and her blood pressure is overall stable, we will plan to transfer the patient to the floor. She continues to improve neurologically. Her hope is that she will continue to mobilize with therapy and begin standing and walking. Eventually, our plan will be for her to attend the inpatient rehab for further therapies. The patient seems to have a good outlook and is optimistic that she will continue to improve. We will continue to follow her during her inpatient stay. Thus far, her thoracic cultures have yielded no growth and no anaerobes. We will continue to follow her cultures. Please call with any neurologic changes or other concerns. Job ID: [id number]
[2019-07-01] MEDS: Lidocaine 5% Patch TD SCH (13:34)
[2019-07-01] MEDS: CEFAZOLIN 2 GM in Premix Bag 1 BAG IVPB SCH (16:16)
--- NOTE | 2019-07-01 20:09 | PDOC.HOSPP ---
- Subjective Subjective: Doing well. Not having a lot of pain. Has some discomfort in the middle of the back. - Objective Vital Signs & Weight: Vital Signs (12 hours) Temp Pulse Pulse Pulse Resp BP BP 07/01/19 19:09 73 16 07/01/19 15:57 97.6 F 67 14 07/01/19 14:16 72 14 07/01/19 14:00 97.9 F 67 18 07/01/19 12:00 98.0 F 07/01/19 11:13 65 14 07/01/19 10:41 66 177/64 H 07/01/19 10:15 66 64 177/64 H 07/01/19 09:11 75 215/88 H 07/01/19 08:45 215/88 H 07/01/19 08:44 74 215/88 H BP BP Pulse Ox Pulse Ox Pulse Ox 07/01/19 19:09 100 07/01/19 15:57 97 07/01/19 14:16 98 07/01/19 14:00 163/82 H 100 07/01/19 12:00 07/01/19 11:13 100 07/01/19 10:41 07/01/19 10:15 184/80 H 100 100 07/01/19 09:11 07/01/19 08:45 07/01/19 08:44 Weight Admit Weight 187 lb Weight 196 lb 10.437 oz Most Recent Monitor Data Heart Rate from ECG 67 NIBP 153/65 NIBP BP-Mean 94 Respiration from ECG 15 SpO2 100 I&O: 06/30/19 07/01/19 07/02/19 06:59 06:59 06:59 Intake Total 1356 1443 1243 Output Total 812 340 70 Balance 544 1103 1173 Result Diagrams: 07/01/19 03:15 07/01/19 03:15 Additional Labs: Accuchecks 07/01/19 07/01/19 07/01/19 15:43 11:28 05:50 POC Glucose 199 H 263 H 236 H 06/30/19 21:40 POC Glucose 369 H Hospitalist ROS - Medication Medications: Active Medications Generic Name Dose Route Start Last Admin Trade Name Freq PRN Reason Stop Dose Admin Acetaminophen/Codeine Phosphate 1 tab 06/28/19 10:01 06/30/19 11:12 Tylenol #3 PO 1 tab Q4H PRN Administration Mild Pain (1-3) Hydrocodone Bitart/Acetaminophen 1 tab 06/28/19 10:01 07/01/19 17:54 Kamas 5/325 PO 1 tab Q4H PRN Administration Moderate Pain (4-6) Acidophilus 1 gm 06/27/19 09:00 07/01/19 09:02 Floranex PO 1 gm DAILY HOMERO Administration Albuterol/Ipratropium 3 ml 06/28/19 10:30 07/01/19 19:09 Duoneb EZPAP 3 ml [id number] HOMERO Administration Amlodipine Besylate 5 mg 06/27/19 09:00 07/01/19 08:44 Norvasc PO 5 mg DAILY HOMERO Administration Atorvastatin Calcium 20 mg 06/27/19 21:00 06/30/19 20:19 Lipitor PO 20 mg HS HOMERO Administration Clonidine 0.1 mg 06/27/19 09:00 07/01/19 08:45 Catapres PO 0.1 mg BID HOMERO Administration Dexamethasone 3 mg 06/30/19 12:00 07/01/19 16:23 Decadron SLOW IVP 07/02/19 06:01 3 mg Q6HR HOMERO Administration Enoxaparin Sodium 30 mg 07/01/19 09:00 07/01/19 08:46 Lovenox SC 30 mg 0900 HOMERO Administration Famotidine 20 mg 06/27/19 09:00 07/01/19 08:46 Pepcid PO 20 mg DAILY HOMERO Administration Ferrous Sulfate 325 mg 06/27/19 09:00 07/01/19 09:06 Feosol PO 325 mg BID HOMERO Administration Gemfibrozil 600 mg 06/27/19 09:00 07/01/19 08:46 Lopid PO 600 mg DAILY HOMERO Administration Hydralazine HCl 10 mg 06/30/19 06:38 07/01/19 10:41 Apresoline SLOW IVP 10 mg Q15MIN PRN Administration SBP >160 and/or DBP >100 Cefazolin Sodium/Dextrose 2 gm 50 mls @ 100 mls/hr 06/29/19 17:00 07/01/19 16 :16 / Device IVPB 50 mls 1700 HOMERO Administration Insulin Glargine 30 units/ 0.3 mls @ 0 mls/hr 06/30/19 09:00 07/01/19 09:05 Miscellaneous Medication SC 0.3 mls QAM HOMERO Administration Insulin Human Lispro 0 units 06/28/19 06:22 07/01/19 16:16 Humalog SC 2 unit .MODERATE SLIDING SC PRN Administration MODERATE SLIDING SCALE Protocol Lidocaine 1 patch 06/27/19 14:00 07/01/19 13:34 Lidoderm 5% Patch TD 1 patch 1400 HOMERO Administration Metoprolol Tartrate 25 mg 06/27/19 09:00 07/01/19 08:46 Lopressor PO 25 mg BID HOMERO Administration Miscellaneous Medication 1 each 06/27/19 02:00 07/01/19 04:48 Lidocaine Patch Removal TOP 1 each 0200 HOMERO Administration Morphine Sulfate 2 mg 06/28/19 10:01 07/01/19 14:38 Morphine SLOW IVP 2 mg Q2H PRN Administration Severe Pain (7-10) Ondansetron HCl 4 mg 06/26/19 23:07 06/27/19 19:39 Zofran IVP 4 mg Q6H PRN Administration Nausea/Vomiting Polyethylene Glycol 17 gm 06/27/19 09:00 07/01/19 09:06 Miralax PO 17 gm DAILY HOMERO Administration Senna/Docusate Sodium 2 tab 06/29/19 09:00 07/01/19 08:45 Senokot S PO 2 tab BID HOMERO Administration Sertraline HCl 100 mg 06/27/19 21:00 06/30/19 20:19 Zoloft PO 100 mg HS HOMERO Administration Sevelamer Carbonate 1,600 mg 06/27/19 08:00 07/01/19 16:16 Renvela PO 1,600 mg TID-WM HOMERO Administration Timolol Maleate 1 drop 06/27/19 09:00 07/01/19 09:11 Timoptic 0.5% Ophth Soln EA EYE 1 drop BID HOMERO Administration Tizanidine HCl 4 mg 06/26/19 23:07 06/28/19 14:11 Zanaflex PO 4 mg Q8HR PRN Administration Muscle Spasm - Exam General Appearance: NAD, awake alert Heart: RRR, no murmur, no gallops, no rubs, normal peripheral pulses Respiratory: CTAB, no wheezes, no rales, no ronchi, normal chest expansion, no tachypnea, normal percussion Gastrointestinal: soft, non-tender, non-distended, normal bowel sounds, no palpable masses, no hepatomegaly, no splenomegaly, no bruit Extremities: no cyanosis, no clubbing, no edema Skin: normal turgor Hosp A/P (1) Cervical discitis Code(s): M46.42 - DISCITIS, UNSPECIFIED, CERVICAL REGION Status: Acute (2) Osteomyelitis Code(s): M86.9 - OSTEOMYELITIS, UNSPECIFIED Status: Acute Qualifiers: Osteomyelitis type: unspecified type Osteomyelitis location: other site Qualified Code(s): M86.9 - Osteomyelitis, unspecified (3) DM2 (diabetes mellitus, type 2) Status: Chronic Qualifiers: Diabetes mellitus superintendent terminal insulin use: with longterm use Diabetes mellitus complication status: with kidney complications Diabetes mellitus complication detail: with chronic kidney disease Chronic kidney disease stage : on chronic dialysis Qualified Code(s): E11.22 - Type 2 diabetes mellitus with diabetic chronic kidney disease; N18.6 - End stage renal disease; Z79.4 - superintendent terminal (current) use of insulin; Z99.2 - Dependence on renal dialysis (4) Dyslipidemia Code(s): E78.5 - HYPERLIPIDEMIA, UNSPECIFIED Status: Chronic (5) ESRD on hemodialysis Code(s): N18.6 - END STAGE RENAL DISEASE; Z99.2 - DEPENDENCE ON RENAL DIALYSIS Status: Chronic (6) Hypertension Code(s): I10 - ESSENTIAL (PRIMARY) HYPERTENSION Status: Chronic Qualifiers: Hypertension type: essential hypertension Qualified Code(s): I10 - Essential (primary) hypertension (7) UTI (urinary tract infection) Status: Acute (8) Hyponatremia Code(s): E87.1 - HYPO-OSMOLALITY AND HYPONATREMIA Status: Acute (9) Discitis Code(s): M46.40 - DISCITIS, UNSPECIFIED, SITE UNSPECIFIED Status: Acute Qualifiers: Spinal region: thoracic Qualified Code(s): M46.44 - Discitis, unspecified, thoracic region - Plan Doing well post-op. Neurosurg team managing. Continue HD via nephrology. Stable. BP is very dialysis/volume dependent. Much improved today after dialysis. PRN hydralazine Increase the Clonidine to 0.1 mg po tid. Increase the Amlodipine to 10 mg po q day. Steroids likely exacerbating the BP. Blood sugar high in light of the high dose steroids. Lantus increased to 35 units q am. Continue IV abx per ID. Linezolid DC'd. Pain management. PT.
[2019-07-01] MEDS: Atorvastatin Calcium 20 MG TAB PO SCH (20:18)
[2019-07-01] MEDS ORDERED: Amlodipine 10 MG TAB PO SCH (20:30)
[2019-07-02] MEDS: Lidocaine Patch Removal 1 EACH TOP SCH (02:24)
[2019-07-02] MEDS: HYDROcodone/Acetaminophen 5/325 mg Tablet PO PRN ×3 (05:34→20:40)
[2019-07-02] MEDS: Dexamethasone 4 mg/ml Vial SLOW IVP SCH ×4 (05:35→23:38)
[2019-07-02 05:56] LABS: Anion Gap 14 mmol/L (10-20); BUN (Urea Nitrogen) 41 mg/dL (9.8-20.1); Calc. Creatinine Clearance 32 mL/min (70-130); Calcium 8.7 mg/dL (7.8-10.44); Carbon Dioxide 24 mmol/L (22-29); Chloride 98 mmol/L (98-107); Estimated GFR-MDRD 17; Glucose 128 mg/dL (70-105); Sodium 131 mmol/L (136-145)
[2019-07-02] MEDS: Ferrous Sulfate 325 MG TAB PO SCH ×2 (07:33→20:39)
[2019-07-02] MEDS: Timolol 0.5% Ophth Soln 5 ml Bottle EA EYE SCH ×2 (07:34→20:41)
[2019-07-02] MEDS: Polyethylene Glycol 3350 17 GM Packet PO SCH (07:34)
[2019-07-02] MEDS: Floranex Packet PO SCH (07:35)
[2019-07-02] MEDS: Senokot S 8.6-50 MG TAB PO SCH ×2 (07:38→20:40)
[2019-07-02] MEDS: Sevelamer Carbonate 800 MG TAB PO SCH ×3 (07:38→17:32)
[2019-07-02] MEDS: Gemfibrozil 600 MG TAB PO SCH (07:39)
[2019-07-02] MEDS: Famotidine 20 MG TAB PO SCH (07:40)
[2019-07-02] MEDS: Enoxaparin Sodium 30 MG/0.3 ML SYRINGE SC SCH (07:40)
[2019-07-02] MEDS ORDERED: Amlodipine 5 MG TAB PO SCH (09:00)
[2019-07-02] MEDS: Amlodipine 10 MG TAB PO SCH (09:33)
[2019-07-02] MEDS: cloNIDine 0.1 MG TAB PO SCH ×3 (09:33→20:39)
[2019-07-02] MEDS: Metoprolol Tartrate 25 MG TAB PO SCH ×2 (09:34→20:40)
[2019-07-02] MEDS: Insulin Glargine 35 UNITS in Pre-Filled Syringe 1 EACH SC SCH ×2 (09:36→12:24)
[2019-07-02] MEDS: Acetaminophen/Codeine 30-300mg Tablet PO PRN (09:49)
--- NOTE | 2019-07-02 11:07 | PRG ---
DATE OF SERVICE: 07/02/2019 SUBJECTIVE: This is a 59-year-old female, being seen for end-stage kidney disease. The patient denied nausea, vomiting or chest pain. OBJECTIVE: See above. CONSTITUTIONAL: The patient is awake and alert. VITAL SIGNS: Afebrile. Pulse 75, breathing 16, blood pressure 131/83. GENERAL APPEARANCE AND MENTAL STATUS: Fair. HEAD/NECK: Normocephalic. Atraumatic. EYES: EOMI. No deformity. EARS: Clear. No ulcers. NOSE: Intact. No lesions. MOUTH: Clear. No discharge. THROAT: Clear. No exudate. LUNGS: Clear. No crackles. CARDIAC: S1, S2. No rub. ABDOMEN: Benign. Bowel sounds positive. GENITALIA/RECTUM: Weeks absent. BACK/EXTREMITIES: Edema 0+. NEUROLOGICAL: Alert and motor intact. SKIN: LYMPHATICS: LABORATORY DATA: Reviewed. ASSESSMENT AND PLAN: 1. Stage 3 chronic kidney disease. Plan dialysis. 2. Hypertension, stable. 3. Anemia, stable. 4. Medication based on GFR appropriate. Job ID: [id number]
[2019-07-02] MEDS: Morphine 2 MG/ML SYRINGE SLOW IVP PRN (12:15)
[2019-07-02] MEDS: Lidocaine 5% Patch TD SCH (13:59)
[2019-07-02] MEDS ORDERED: Heparin 10,000 UNITS/ 10 ML VIAL ONE (14:21)
--- NOTE | 2019-07-02 14:43 | PRG ---
DATE OF SERVICE: 07/02/2019 Ms. Bright is postoperative day #5 after undergoing cervical corpectomy and fusion with thoracic laminectomies and fusion. The patient continues to make gains with improvement of her leg strength. She is able to bend both knees higher than yesterday. She does report mid back pain, but denies any neck pain at this time. She denies any pain in her arms or legs. She remains hoarse and has been swallowing without difficulty on a full liquid diet. She states that she has been able to sit upright and transfer to a neuro chair; however, she has not been able to stand or ambulate at this time. Her sodium level has decreased from 132 to 131 today. We will continue to encourage restriction of free water and encourage her to drink Gatorade. She shows no signs of confusion at this time. She had dialysis today. Her blood pressure has been varying and is fluid dependent with dialysis. The patient is currently only on Ancef. Dr. Ward has evaluated the patient and took her off the linezolid with the suspicion that her current cultures are negative for VRE and that only MSSA should be the targeted organism. The patient's anterior cervical FRANCIS drain has had zero output over the last 2 days. Her posterior thoracic FRANCIS drain had output of 40 mL overnight. Both of these drains were removed today without difficulty. The cervical and thoracic incisions appear to be healing well. The patient currently remains on an 8-day Decadron taper, currently taking 2 mg q.6 hours. She also remains on Lovenox 30 mg subcutaneously once daily. She has had no growth over the last 5 days from her thoracic bone cultures. Overall, the patient continues to improve with each today and is moving in the right direction. She will benefit from continued therapies, and plan is for her to likely be discharged to [facility] inpatient rehab. We will see the patient tomorrow to re-evaluate. Please call for any neurologic changes or other concerns. Job ID: [id number]
--- NOTE | 2019-07-02 16:32 | PDOC.HOSPP ---
- Subjective Subjective: Doing well overall. No significant pain. Has been up in chair. - Objective Vital Signs & Weight: Vital Signs (12 hours) Temp Pulse Resp BP BP Pulse Ox 07/02/19 14:12 79 16 100 07/02/19 14:10 166/80 H 07/02/19 12:25 97.6 F 73 16 159/67 H 98 07/02/19 09:33 95 166/80 H 07/02/19 08:56 98.3 F 95 20 131/83 95 07/02/19 07:34 95 07/02/19 07:30 98.2 F 73 16 170/90 H 98 07/02/19 06:55 73 16 97 Weight Admit Weight 196 lb 6.91 oz Weight 202 lb 12.8 oz Most Recent Monitor Data Heart Rate from ECG 67 NIBP 153/65 NIBP BP-Mean 94 Respiration from ECG 15 SpO2 100 I&O: 07/01/19 07/02/19 07/03/19 06:59 06:59 06:59 Intake Total 1443 1503 Output Total 340 810 25 Balance 1103 693 -25 Result Diagrams: 07/01/19 03:15 07/02/19 04:58 Additional Labs: Accuchecks 07/02/19 07/02/19 07/02/19 15:38 12:21 05:46 POC Glucose 81 89 133 H 07/01/19 20:43 POC Glucose 187 H Hospitalist ROS - Medication Medications: Active Medications Generic Name Dose Route Start Last Admin Trade Name Freq PRN Reason Stop Dose Admin Acetaminophen/Codeine Phosphate 1 tab 06/28/19 10:01 07/02/19 09:49 Tylenol #3 PO 1 tab Q4H PRN Administration Mild Pain (1-3) Hydrocodone Bitart/Acetaminophen 1 tab 06/28/19 10:01 07/02/19 13:59 Watch[place] 5/325 PO 1 tab Q4H PRN Administration Moderate Pain (4-6) Acidophilus 1 gm 06/27/19 09:00 07/02/19 07:35 Floranex PO 1 gm DAILY HOMERO Administration Albuterol/Ipratropium 3 ml 06/28/19 10:30 07/02/19 14:12 Duoneb EZPAP 3 ml [id number] HOMERO Administration Amlodipine Besylate 10 mg 07/02/19 09:00 07/02/19 09:33 Norvasc PO Not Given DAILY [facility] Atorvastatin Calcium 20 mg 06/27/19 21:00 07/01/19 20:18 Lipitor PO 20 mg HS HOMERO Administration Clonidine 0.1 mg 07/01/19 21:00 07/02/19 14:10 Catapres PO 0.1 mg TID HOMERO Administration Dexamethasone 2 mg 07/02/19 12:00 07/02/19 12:30 Decadron SLOW IVP 07/04/19 06:01 2 mg Q6HR HOMERO Administration Enoxaparin Sodium 30 mg 07/01/19 09:00 07/02/19 07:40 Lovenox SC 30 mg 0900 HOMERO Administration Famotidine 20 mg 06/27/19 09:00 07/02/19 07:40 Pepcid PO 20 mg DAILY HOMERO Administration Ferrous Sulfate 325 mg 06/27/19 09:00 07/02/19 07:33 Feosol PO 325 mg BID [facility] Administration Gemfibrozil 600 mg 06/27/19 09:00 07/02/19 07:39 Lopid PO 600 mg DAILY HOMERO Administration Hydralazine HCl 10 mg 06/30/19 06:38 07/01/19 10:41 Apresoline SLOW IVP 10 mg Q15MIN PRN Administration SBP >160 and/or DBP >100 Cefazolin Sodium/Dextrose 2 gm 50 mls @ 100 mls/hr 06/29/19 17:00 07/01/19 16 :16 / Device IVPB 50 mls 1700 HOMERO Administration Insulin Glargine 35 units/ 0.35 mls @ 0 mls/hr 07/02/19 09:00 07/02/19 12:24 Miscellaneous Medication SC 0.35 mls QAM HOMERO Administration Insulin Human Lispro 0 units 06/28/19 06:22 07/01/19 16:16 Humalog SC 2 unit .MODERATE SLIDING SC PRN Administration MODERATE SLIDING SCALE Protocol Lidocaine 1 patch 06/27/19 14:00 07/02/19 13:59 Lidoderm 5% Patch TD 1 patch 1400 HOMERO Administration Metoprolol Tartrate 25 mg 06/27/19 09:00 07/02/19 09:34 Lopressor PO Not Given BID [facility] Miscellaneous Medication 1 each 06/27/19 02:00 07/02/19 02:24 Lidocaine Patch Removal TOP 1 each 0200 HOMERO Administration Morphine Sulfate 2 mg 06/28/19 10:01 07/02/19 12:15 Morphine SLOW IVP 2 mg Q2H PRN Administration Severe Pain (7-10) Ondansetron HCl 4 mg 06/26/19 23:07 06/27/19 19:39 Zofran IVP 4 mg Q6H PRN Administration Nausea/Vomiting Polyethylene Glycol 17 gm 06/27/19 09:00 07/02/19 07:34 Miralax PO 17 gm DAILY HOMERO Administration Senna/Docusate Sodium 2 tab 06/29/19 09:00 07/02/19 07:38 Senokot S PO 2 tab BID HOMERO Administration Sertraline HCl 100 mg 06/27/19 21:00 07/01/19 20:19 Zoloft PO 100 mg HS HOMERO Administration Sevelamer Carbonate 1,600 mg 06/27/19 08:00 07/02/19 12:20 Renvela PO 1,600 mg TID-WM HOMERO Administration Timolol Maleate 1 drop 06/27/19 09:00 07/02/19 07:34 Timoptic 0.5% Ophth Soln EA EYE 1 drop BID HOMERO Administration Tizanidine HCl 4 mg 06/26/19 23:07 06/28/19 14:11 Zanaflex PO 4 mg Q8HR PRN Administration Muscle Spasm - Exam General Appearance: NAD, awake alert ENT - other findings: Cspine brace. Heart: RRR, no murmur, no gallops, no rubs, normal peripheral pulses Respiratory: CTAB, no wheezes, no rales, no ronchi, normal chest expansion, no tachypnea, normal percussion Gastrointestinal: soft, non-tender, non-distended, normal bowel sounds, no palpable masses, no hepatomegaly, no splenomegaly, no bruit Extremities: no cyanosis, no clubbing, no edema Psychiatric: normal affect, normal behavior, A&O x 3 Hosp A/P (1) Cervical discitis Code(s): M46.42 - DISCITIS, UNSPECIFIED, CERVICAL REGION Status: Acute (2) Osteomyelitis Code(s): M86.9 - OSTEOMYELITIS, UNSPECIFIED Status: Acute Qualifiers: Osteomyelitis type: unspecified type Osteomyelitis location: other site Qualified Code(s): M86.9 - Osteomyelitis, unspecified (3) DM2 (diabetes mellitus, type 2) Status: Chronic Qualifiers: Diabetes mellitus big data lead insulin use: with big data lead use Diabetes mellitus complication status: with kidney complications Diabetes mellitus complication detail: with chronic kidney disease Chronic kidney disease stage : on chronic dialysis Qualified Code(s): E11.22 - Type 2 diabetes mellitus with diabetic chronic kidney disease; N18.6 - End stage renal disease; Z79.4 - skilled nursing (current) use of insulin; Z99.2 - Dependence on renal dialysis (4) Dyslipidemia Code(s): E78.5 - HYPERLIPIDEMIA, UNSPECIFIED Status: Chronic (5) ESRD on hemodialysis Code(s): N18.6 - END STAGE RENAL DISEASE; Z99.2 - DEPENDENCE ON RENAL DIALYSIS Status: Chronic (6) Hypertension Code(s): I10 - ESSENTIAL (PRIMARY) HYPERTENSION Status: Chronic Qualifiers: Hypertension type: essential hypertension Qualified Code(s): I10 - Essential (primary) hypertension (7) UTI (urinary tract infection) Status: Acute (8) Hyponatremia Code(s): E87.1 - HYPO-OSMOLALITY AND HYPONATREMIA Status: Acute (9) Discitis Code(s): M46.40 - DISCITIS, UNSPECIFIED, SITE UNSPECIFIED Status: Acute Qualifiers: Spinal region: thoracic Qualified Code(s): M46.44 - Discitis, unspecified, thoracic region - Plan Doing well post-op. Neurosurg team managing. Continue HD via nephrology. Stable. BP is very dialysis/volume dependent. Much improved today after dialysis. PRN hydralazine Increase the Clonidine to 0.1 mg po tid. Increase the Amlodipine to 10 mg po q day. Steroids likely exacerbating the BP. Getting better. Blood sugar high in light of the high dose steroids. Lantus increased to 35 units q am. Blood sugars are significantly improved. Continue IV abx per ID. Linezolid DC'd. Pain management. PT. Will likely need rehab.
[2019-07-02] MEDS: CEFAZOLIN 2 GM in Premix Bag 1 BAG IVPB SCH (17:24)
[2019-07-02] MEDS: Atorvastatin Calcium 20 MG TAB PO SCH (20:40)
[2019-07-03] MEDS: Lidocaine Patch Removal 1 EACH TOP SCH (03:12)
[2019-07-03] MEDS: Dexamethasone 4 mg/ml Vial SLOW IVP SCH ×4 (05:49→23:30)
[2019-07-03 06:10] LABS: Anion Gap 11 mmol/L (10-20); BUN (Urea Nitrogen) 27 mg/dL (9.8-20.1); Calc. Creatinine Clearance 38 mL/min (70-130); Calcium 8.4 mg/dL (7.8-10.44); Carbon Dioxide 29 mmol/L (22-29); Chloride 99 mmol/L (98-107); Estimated GFR-MDRD 23; Glucose 68 mg/dL (70-105); Potassium 4.6 mmol/L (3.5-5.1); Sodium 134 mmol/L (136-145)
[2019-07-03 06:28] LABS: Hemoglobin 10.4 g/dL (12.0-16.0); Mean Corpuscular HGB CONC 30.6 g/dL (32.0-36.0); Platelet Count 289 thou/uL (130-400); RBC Distribution Width 14.2 % (11.5-14.5); Red Blood Cell (RBC) Count 3.47 mill/uL (4.20-5.40); White Blood Cell (WBC) Count 21.3 thou/uL (4.8-10.8)
[2019-07-03 07:00] LABS: Band 5 % (5-11); Eosinophils 1 % (0-10); Lymphocytes 11 % (21-51); MDiff Complete? YES; Monocytes 3 % (0-10); Myelocyte 2 % (0-0); Neutrophil 78 % (42-75)
[2019-07-03] MEDS: HYDROcodone/Acetaminophen 5/325 mg Tablet PO PRN ×3 (07:56→16:27)
[2019-07-03] MEDS: cloNIDine 0.1 MG TAB PO SCH ×3 (07:59→21:51)
[2019-07-03] MEDS: Sevelamer Carbonate 800 MG TAB PO SCH ×3 (08:00→16:26)
[2019-07-03] MEDS: Gemfibrozil 600 MG TAB PO SCH (08:01)
[2019-07-03] MEDS: Ferrous Sulfate 325 MG TAB PO SCH ×2 (08:01→21:52)
[2019-07-03] MEDS: Senokot S 8.6-50 MG TAB PO SCH ×2 (08:02→21:53)
[2019-07-03] MEDS: Amlodipine 10 MG TAB PO SCH (08:03)
[2019-07-03] MEDS: Metoprolol Tartrate 25 MG TAB PO SCH ×2 (08:03→21:51)
[2019-07-03] MEDS: Famotidine 20 MG TAB PO SCH (08:03)
[2019-07-03] MEDS: Floranex Packet PO SCH (08:05)
[2019-07-03] MEDS: Insulin Glargine 35 UNITS in Pre-Filled Syringe 1 EACH SC SCH (08:06)
[2019-07-03] MEDS: Polyethylene Glycol 3350 17 GM Packet PO SCH (09:20)
[2019-07-03] MEDS: Enoxaparin Sodium 30 MG/0.3 ML SYRINGE SC SCH (09:21)
[2019-07-03] MEDS: Timolol 0.5% Ophth Soln 5 ml Bottle EA EYE SCH ×2 (09:22→21:53)
--- NOTE | 2019-07-03 10:12 | PRG ---
DATE OF SERVICE: 07/03/2019 SUBJECTIVE: This is a 59-year-old female being seen for end-stage renal disease. The patient denied any nausea, vomiting, or chest pain. OBJECTIVE: CONSTITUTIONAL: On examination, the patient is awake and alert. VITAL SIGNS: Afebrile, pulse 75, breathing 16, and blood pressure 167/83. General: Physical exam. GENERAL APPEARANCE AND MENTAL STATUS: Fair. HEAD/NECK: Normocephalic. Atraumatic. EYES: EOMI. No deformity. EARS: Clear. No ulcers. NOSE: Intact. No lesions. MOUTH: Clear. No discharge. THROAT: Clear. No exudate. LUNGS: Clear. No crackles. CARDIAC: S1, S2. No rub. ABDOMEN: Benign. Bowel sounds positive. GENITALIA/RECTUM: Weeks absent. BACK/EXTREMITIES: Edema 0+. NEUROLOGICAL: Alert and motor intact. SKIN: LYMPHATICS: LABORATORY DATA: Reviewed. ASSESSMENT AND PLAN: 1. Stage 6, chronic kidney disease. Plan dialysis per schedule. 2. Hypertension, stable. 3. Anemia, stable. 4. Medications based on glomerular filtration rate are appropriate. Job ID: [id number]
--- NOTE | 2019-07-03 11:38 | PRG ---
DATE OF SERVICE: 07/03/2019 Ms. Bright is 6 days out from C6 corpectomy and T8-T9 laminectomy with T6-T11 stabilization for progressive osteodiskitis. She is neurologically intact and other than deconditioning, moves all extremities to command with no apparent weakness. She is not yet stood however and so I suspect there is certainly an element of functional weakness in particular with standing and gait. She has set up, however. She understands she needs with a cervical collar at this point at all times, but the TLSO clamshell brace only needs to be worn when she is out of bed. We are making strides toward movement toward inpatient rehabilitation. I have discussed her case with Dr. Ward. He feels that the Ancef is sufficient to treat her infection and the Enterococcus is not playing a role in her infection. I will obviously defer to him in that regard as that is area of expertise. She will need lifelong antibiotics in my opinion, however because she has hardware in the setting of infection. We will pursue a bit inpatient rehab in the near future. She is on a Decadron taper. Job ID: [id number]
[2019-07-03] MEDS: Lidocaine 5% Patch TD SCH (14:46)
--- NOTE | 2019-07-03 15:17 | PDOC.HOSPP ---
- Subjective Subjective: Doing well. Still has some discomfort in the mid back. Tolerating pureed foods well. A little pain with swallowing with incisional pain. - Objective Vital Signs & Weight: Vital Signs (12 hours) Temp Pulse Resp BP BP Pulse Ox 07/03/19 15:05 98.7 F 69 18 152/86 H 100 07/03/19 15:04 167/83 H 07/03/19 14:57 70 16 100 07/03/19 10:38 66 18 99 07/03/19 10:14 98.8 F 65 16 115/70 98 07/03/19 09:22 78 07/03/19 08:03 78 07/03/19 07:59 167/83 H 07/03/19 07:23 98.1 F 78 16 162/67 H 100 07/03/19 06:54 74 16 100 07/03/19 05:59 98.3 F 77 16 123/68 97 Weight Admit Weight 196 lb 6.91 oz Weight 189 lb 14.4 oz Most Recent Monitor Data Heart Rate from ECG 67 NIBP 153/65 NIBP BP-Mean 94 Respiration from ECG 15 SpO2 100 I&O: 07/02/19 07/03/19 07/04/19 06:59 06:59 06:59 Intake Total 1503 1180 Output Total 810 3050 Balance 693 -1870 Result Diagrams: 07/03/19 06:06 07/03/19 05:04 Additional Labs: Accuchecks 07/03/19 07/03/19 07/02/19 10:19 05:50 20:24 POC Glucose 77 77 91 07/02/19 15:38 POC Glucose 81 Hospitalist ROS - Medication Medications: Active Medications Generic Name Dose Route Start Last Admin Trade Name Freq PRN Reason Stop Dose Admin Acetaminophen/Codeine Phosphate 1 tab 06/28/19 10:01 07/02/19 09:49 Tylenol #3 PO 1 tab Q4H PRN Administration Mild Pain (1-3) Hydrocodone Bitart/Acetaminophen 1 tab 06/28/19 10:01 07/03/19 12:25 [place] 5/325 PO 1 tab Q4H PRN Administration Moderate Pain (4-6) Acidophilus 1 gm 06/27/19 09:00 07/03/19 08:05 Floranex PO 1 gm DAILY HOMERO Administration Albuterol/Ipratropium 3 ml 06/28/19 10:30 07/03/19 14:57 Duoneb EZPAP 3 ml [id number] HOMERO Administration Amlodipine Besylate 10 mg 07/02/19 09:00 07/03/19 08:03 Norvasc PO 10 mg DAILY HOMERO Administration Atorvastatin Calcium 20 mg 06/27/19 21:00 07/02/19 20:40 Lipitor PO 20 mg HS HOMERO Administration Clonidine 0.1 mg 07/01/19 21:00 07/03/19 15:04 Catapres PO 0.1 mg TID HOMERO Administration Dexamethasone 2 mg 07/02/19 12:00 07/03/19 12:26 Decadron SLOW IVP 07/04/19 06:01 2 mg Q6HR HOMERO Administration Enoxaparin Sodium 30 mg 07/01/19 09:00 07/03/19 09:21 Lovenox SC 30 mg 0900 HOMERO Administration Famotidine 20 mg 06/27/19 09:00 07/03/19 08:03 Pepcid PO 20 mg DAILY HOMERO Administration Ferrous Sulfate 325 mg 06/27/19 09:00 07/03/19 08:01 Feosol PO 325 mg BID HOMERO Administration Gemfibrozil 600 mg 06/27/19 09:00 07/03/19 08:01 Lopid PO 600 mg DAILY HOMERO Administration Hydralazine HCl 10 mg 06/30/19 06:38 07/01/19 10:41 Apresoline SLOW IVP 10 mg Q15MIN PRN Administration SBP >160 and/or DBP >100 Cefazolin Sodium/Dextrose 2 gm 50 mls @ 100 mls/hr 06/29/19 17:00 07/02/19 17 :24 / Device IVPB 50 mls 1700 HOMERO Administration Insulin Glargine 35 units/ 0.35 mls @ 0 mls/hr 07/02/19 09:00 07/03/19 08:06 Miscellaneous Medication SC 0.35 mls QAM HOMERO Administration Insulin Human Lispro 0 units 06/28/19 06:22 07/01/19 16:16 Humalog SC 2 unit .MODERATE SLIDING SC PRN Administration MODERATE SLIDING SCALE Protocol Lidocaine 1 patch 06/27/19 14:00 07/03/19 14:46 Lidoderm 5% Patch TD 1 patch 1400 HOMERO Administration Metoprolol Tartrate 25 mg 06/27/19 09:00 07/03/19 08:03 Lopressor PO 25 mg BID HOMERO Administration Miscellaneous Medication 1 each 06/27/19 02:00 07/03/19 03:12 Lidocaine Patch Removal TOP 1 each 0200 HOMERO Administration Morphine Sulfate 2 mg 06/28/19 10:01 07/02/19 12:15 Morphine SLOW IVP 2 mg Q2H PRN Administration Severe Pain (7-10) Ondansetron HCl 4 mg 06/26/19 23:07 06/27/19 19:39 Zofran IVP 4 mg Q6H PRN Administration Nausea/Vomiting Polyethylene Glycol 17 gm 06/27/19 09:00 07/03/19 09:20 Miralax PO 17 gm DAILY HOMERO Administration Senna/Docusate Sodium 2 tab 06/29/19 09:00 07/03/19 08:02 Senokot S PO 2 tab BID HOMERO Administration Sertraline HCl 100 mg 06/27/19 21:00 07/02/19 20:39 Zoloft PO 100 mg HS HOMERO Administration Sevelamer Carbonate 1,600 mg 06/27/19 08:00 07/03/19 12:26 Renvela PO 1,600 mg TID-WM HOMERO Administration Timolol Maleate 1 drop 06/27/19 09:00 07/03/19 09:22 Timoptic 0.5% Ophth Soln EA EYE 1 drop BID HOMERO Administration Tizanidine HCl 4 mg 06/26/19 23:07 06/28/19 14:11 Zanaflex PO 4 mg Q8HR PRN Administration Muscle Spasm - Exam General Appearance: NAD, awake alert Neck - other findings: C-spine aspen brace. Heart: RRR, no murmur, no gallops, no rubs, normal peripheral pulses Respiratory: CTAB, no wheezes, no rales, no ronchi, normal chest expansion, no tachypnea, normal percussion Gastrointestinal: soft, non-tender, non-distended, normal bowel sounds, no palpable masses, no hepatomegaly, no splenomegaly, no bruit Skin: normal turgor, no lesions, no rashes Psychiatric: normal affect, normal behavior, A&O x 3 Hosp A/P (1) Cervical discitis Code(s): M46.42 - DISCITIS, UNSPECIFIED, CERVICAL REGION Status: Acute (2) Osteomyelitis Code(s): M86.9 - OSTEOMYELITIS, UNSPECIFIED Status: Acute Qualifiers: Osteomyelitis type: unspecified type Osteomyelitis location: other site Qualified Code(s): M86.9 - Osteomyelitis, unspecified (3) DM2 (diabetes mellitus, type 2) Status: Chronic Qualifiers: Diabetes mellitus penitentiary insulin use: with press tender long goods use Diabetes mellitus complication status: with kidney complications Diabetes mellitus complication detail: with chronic kidney disease Chronic kidney disease stage : on chronic dialysis Qualified Code(s): E11.22 - Type 2 diabetes mellitus with diabetic chronic kidney disease; N18.6 - End stage renal disease; Z79.4 - termite treater (current) use of insulin; Z99.2 - Dependence on renal dialysis (4) Dyslipidemia Code(s): E78.5 - HYPERLIPIDEMIA, UNSPECIFIED Status: Chronic (5) ESRD on hemodialysis Code(s): N18.6 - END STAGE RENAL DISEASE; Z99.2 - DEPENDENCE ON RENAL DIALYSIS Status: Chronic (6) Hypertension Code(s): I10 - ESSENTIAL (PRIMARY) HYPERTENSION Status: Chronic Qualifiers: Hypertension type: essential hypertension Qualified Code(s): I10 - Essential (primary) hypertension (7) UTI (urinary tract infection) Status: Acute (8) Hyponatremia Code(s): E87.1 - HYPO-OSMOLALITY AND HYPONATREMIA Status: Acute (9) Discitis Code(s): M46.40 - DISCITIS, UNSPECIFIED, SITE UNSPECIFIED Status: Acute Qualifiers: Spinal region: thoracic Qualified Code(s): M46.44 - Discitis, unspecified, thoracic region - Plan Doing well post-op. Neurosurg team managing. Continue HD via nephrology. Stable. PRN hydralazine Increase the Clonidine to 0.1 mg po tid. Increase the Amlodipine to 10 mg po q day. Steroids likely exacerbating the BP. Getting better. Blood sugar high in light of the high dose steroids. Lantus increased to 35 units q am. Blood sugars are significantly improved with tapering steroids. Will need to watch for hypoglycemia in light of the adjustments with insulin. Continue IV abx per ID. Ancef daily with additional dosing after dialysis. Defer to Dr. Ward on duration. Pain management. PT. Will likely need rehab. CM working on placement for rehab.
[2019-07-03] MEDS: CEFAZOLIN 2 GM in Premix Bag 1 BAG IVPB SCH (16:27)
[2019-07-03] MEDS: Morphine 2 MG/ML SYRINGE SLOW IVP PRN (18:08)
[2019-07-03] MEDS: Atorvastatin Calcium 20 MG TAB PO SCH (21:51)
[2019-07-04] MEDS: Lidocaine Patch Removal 1 EACH TOP SCH (03:21)
[2019-07-04] MEDS: Diabetic Tussin 200 MG/10 ML UDCUP PO PRN ×2 (04:26→07:52)
[2019-07-04] MEDS: Dexamethasone 4 mg/ml Vial SLOW IVP SCH ×4 (04:53→23:19)
[2019-07-04] MEDS: HYDROcodone/Acetaminophen 5/325 mg Tablet PO PRN ×4 (06:17→21:21)
[2019-07-04] MEDS: Floranex Packet PO SCH (07:52)
[2019-07-04] MEDS: Amlodipine 10 MG TAB PO SCH (07:53)
[2019-07-04] MEDS: Sevelamer Carbonate 800 MG TAB PO SCH ×3 (07:53→17:34)
[2019-07-04] MEDS: Metoprolol Tartrate 25 MG TAB PO SCH ×2 (07:54→20:07)
[2019-07-04] MEDS: cloNIDine 0.1 MG TAB PO SCH ×3 (07:54→20:09)
[2019-07-04] MEDS: Senokot S 8.6-50 MG TAB PO SCH ×2 (07:54→20:07)
[2019-07-04] MEDS: Famotidine 20 MG TAB PO SCH (07:54)
[2019-07-04] MEDS: Gemfibrozil 600 MG TAB PO SCH (07:54)
[2019-07-04] MEDS: Ferrous Sulfate 325 MG TAB PO SCH ×2 (07:54→20:07)
[2019-07-04] MEDS: Timolol 0.5% Ophth Soln 5 ml Bottle EA EYE SCH ×2 (07:55→20:09)
[2019-07-04] MEDS: Enoxaparin Sodium 30 MG/0.3 ML SYRINGE SC SCH (07:55)
[2019-07-04] MEDS: Insulin Glargine 35 UNITS in Pre-Filled Syringe 1 EACH SC SCH (07:56)
[2019-07-04] MEDS: Polyethylene Glycol 3350 17 GM Packet PO SCH (07:56)
--- NOTE | 2019-07-04 11:54 | PRG ---
DATE OF SERVICE: 07/04/2019 SUBJECTIVE: A 59-year-old female, being seen for end-stage renal disease. The patient denied nausea, vomiting, or chest pain. OBJECTIVE: CONSTITUTIONAL: The patient is awake and alert. VITAL SIGNS: Afebrile, pulse 94, breathing 16, blood pressure 155/97. GENERAL APPEARANCE AND MENTAL STATUS: Fair. HEAD/NECK: Normocephalic. Atraumatic. EYES: EOMI. No deformity. EARS: Clear. No ulcers. NOSE: Intact. No lesions. MOUTH: Clear. No discharge. THROAT: Clear. No exudate. LUNGS: Clear. No crackles. CARDIAC: S1, S2. No rub. ABDOMEN: Benign. Bowel sounds positive. GENITALIA/RECTUM: Weeks absent. BACK/EXTREMITIES: Edema 0+. NEUROLOGICAL: Alert and motor intact. SKIN: LYMPHATICS: LABORATORY DATA: Reviewed. IMPRESSION AND PLAN: 1. Stage 6 chronic kidney disease, continue hemodialysis. 2. Hypertension, stable. 3. Anemia, stable. 4. Medications based on GFR appropriate. Job ID: [id number]
[2019-07-04] MEDS ORDERED: Heparin 10,000 UNITS/ 10 ML VIAL ONE (12:09)
[2019-07-04] MEDS: Morphine 2 MG/ML SYRINGE SLOW IVP PRN ×2 (14:33→21:53)
[2019-07-04] MEDS: CEFAZOLIN 2 GM in Premix Bag 1 BAG IVPB SCH (17:34)
[2019-07-04] MEDS: Lidocaine 5% Patch TD SCH ×2 (17:35→17:49)
[2019-07-04] MEDS: Atorvastatin Calcium 20 MG TAB PO SCH (20:07)
--- NOTE | 2019-07-04 21:07 | PDOC.HOSPP ---
- Subjective Encounter Date: 07/04/19 Encounter Time: 15:00 Subjective: No overnight events. S/p hemodialysis and tolerated well. Feeling On decadron taper, following blood glucose and adjusting glargine accordingly. - Objective Vital Signs & Weight: Vital Signs (12 hours) Temp Pulse Resp BP BP Pulse Ox 07/04/19 20:09 71 129/63 07/04/19 19:25 98.5 F 71 16 125/59 L 93 L 07/04/19 18:30 67 12 99 07/04/19 15:03 98.8 F 73 18 127/82 98 07/04/19 14:34 153/71 H 07/04/19 11:40 90 16 Weight Admit Weight 196 lb 6.91 oz Weight 199 lb Most Recent Monitor Data Heart Rate from ECG 67 NIBP 153/65 NIBP BP-Mean 94 Respiration from ECG 15 SpO2 100 I&O: 07/03/19 07/04/19 07/05/19 06:59 06:59 06:59 Intake Total 1180 800 500 Output Total 3050 500 750 Balance -1870 300 -250 Result Diagrams: 07/03/19 06:06 07/03/19 05:04 Additional Labs: Accuchecks 07/04/19 07/04/19 07/03/19 16:00 05:27 17:15 POC Glucose 51 L* 120 H 72 Radiology Reviewed by me: No EKG Reviewed by me: No Hospitalist ROS - Review of Systems Constitutional: denies: fever, chills, sweats, weakness, malaise, other Eyes: reports: pain Respiratory: denies: cough, dry, shortness of breath, hemoptysis, SOB with excertion, pleuritic pain, sputum, wheezing, other Cardiovascular: denies: chest pain, palpitations, orthopnea, paroxysmal noc. dyspnea, edema, light headedness, other Gastrointestinal: denies: nausea, vomiting, abdominal pain, diarrhea, constipation, melena, hematochezia, other Musculoskeletal: denies: neck pain, back pain Neurological: denies: weakness, numbness, incoordination, change in speech, confusion, seizures, other - Medication Medications: Active Medications Generic Name Dose Route Start Last Admin Trade Name Freq PRN Reason Stop Dose Admin Acetaminophen/Codeine Phosphate 1 tab 06/28/19 10:07/02/19 09:49 Tylenol #3 PO 1 tab Q4H PRN Administration Mild Pain (1-3) Hydrocodone Bitart/Acetaminophen 1 tab 06/28/19 10:01 07/04/19 15:58 [place] 5/325 PO 1 tab Q4H PRN Administration Moderate Pain (4-6) Acidophilus 1 gm 06/27/19 09:00 07/04/19 07:52 Floranex PO 1 gm DAILY HOMERO Administration Albuterol/Ipratropium 3 ml 06/28/19 10:30 07/04/19 18:30 Duoneb EZPAP 3 ml [id number] HOMERO Administration Amlodipine Besylate 10 mg 07/02/19 09:00 07/04/19 07:53 Norvasc PO 10 mg DAILY HOMERO Administration Atorvastatin Calcium 20 mg 06/27/19 21:00 07/04/19 20:07 Lipitor PO 20 mg HS HOMERO Administration Clonidine 0.1 mg 07/01/19 21:00 07/04/19 20:09 Catapres PO 0.1 mg TID HOMERO Administration Dexamethasone 1 mg 07/04/19 12:00 07/04/19 17:34 Decadron SLOW IVP 07/06/19 06:01 1 mg Q6HR HOMERO Administration Enoxaparin Sodium 30 mg 07/01/19 09:00 07/04/19 07:55 Lovenox SC 30 mg 0900 HOMERO Administration Famotidine 20 mg 06/27/19 09:00 07/04/19 07:54 Pepcid PO 20 mg DAILY HOMERO Administration Ferrous Sulfate 325 mg 06/27/19 09:00 07/04/19 20:07 Feosol PO 325 mg BID HOMERO Administration Gemfibrozil 600 mg 06/27/19 09:00 07/04/19 07:54 Lopid PO 600 mg DAILY HOMERO Administration Guaifenesin 100 mg 07/04/19 03:27 07/04/19 07:52 Robitussin Sf PO 100 mg Q4H PRN Administration Cough Hydralazine HCl 10 mg 06/30/19 06:38 07/01/19 10:41 Apresoline SLOW IVP 10 mg Q15MIN PRN Administration SBP >160 and/or DBP >100 Cefazolin Sodium/Dextrose 2 gm 50 mls @ 100 mls/hr 06/29/19 17:00 07/04/19 17 :34 / Device IVPB 50 mls 1700 HOMERO Administration Insulin Human Lispro 0 units 06/28/19 06:22 07/01/19 16:16 Humalog SC 2 unit .MODERATE SLIDING SC PRN Administration MODERATE SLIDING SCALE Protocol Lidocaine 1 patch 07/04/19 16:00 07/04/19 17:35 Lidoderm 5% Patch TD 1 patch 1600 HOMERO Administration Metoprolol Tartrate 25 mg 06/27/19 09:00 07/04/19 20:07 Lopressor PO 25 mg BID HOMERO Administration Morphine Sulfate 2 mg 06/28/19 10:01 07/04/19 14:33 Morphine SLOW IVP 2 mg Q2H PRN Administration Severe Pain (7-10) Ondansetron HCl 4 mg 06/26/19 23:07 06/27/19 19:39 Zofran IVP 4 mg Q6H PRN Administration Nausea/Vomiting Polyethylene Glycol 17 gm 06/27/19 09:00 07/04/19 07:56 Miralax PO 17 gm DAILY HOMERO Administration Senna/Docusate Sodium 2 tab 06/29/19 09:00 07/04/19 20:07 Senokot S PO 2 tab BID HOMERO Administration Sertraline HCl 100 mg 06/27/19 21:00 07/04/19 20:07 Zoloft PO 100 mg HS HOMERO Administration Sevelamer Carbonate 1,600 mg 06/27/19 08:00 07/04/19 17:34 Renvela PO 1,600 mg TID-WM HOMERO Administration Timolol Maleate 1 drop 06/27/19 09:00 07/04/19 20:09 Timoptic 0.5% Ophth Soln EA EYE 1 drop BID HOMERO Administration Tizanidine HCl 4 mg 06/26/19 23:07 06/28/19 14:11 Zanaflex PO 4 mg Q8HR PRN Administration Muscle Spasm - Exam General Appearance: NAD, awake alert ENT - other findings: c-spine brace in place Neck: supple, symmetric, no JVD, no thyromegaly, no lymphadenopathy, no carotid bruit Heart: RRR, no murmur, no gallops, no rubs, normal peripheral pulses Respiratory: CTAB, no wheezes, no rales, no ronchi, normal chest expansion, no tachypnea, normal percussion Gastrointestinal: soft, non-tender, non-distended, normal bowel sounds, no palpable masses, no hepatomegaly, no splenomegaly, no bruit Extremities: no cyanosis, no clubbing, no edema Neurological: cranial nerve grossly intact, no focal deficits Psychiatric: normal affect, normal behavior, A&O x 3 Hosp A/P - Plan (1) Cervical discitis Code(s): M46.42 - DISCITIS, UNSPECIFIED, CERVICAL REGION Status: Acute (2) Osteomyelitis Code(s): M86.9 - OSTEOMYELITIS, UNSPECIFIED Status: Acute Qualifiers: Osteomyelitis type: unspecified type Osteomyelitis location: other site Qualified Code(s): M86.9 - Osteomyelitis, unspecified (3) DM2 (diabetes mellitus, type 2) Status: Chronic Qualifiers: Diabetes mellitus termite treater helper insulin use: with group home use Diabetes mellitus complication status: with kidney complications Diabetes mellitus complication detail: with chronic kidney disease Chronic kidney disease stage : on chronic dialysis Qualified Code(s): E11.22 - Type 2 diabetes mellitus with diabetic chronic kidney disease; N18.6 - End stage renal disease; Z79.4 - superintendent marine oil terminal (current) use of insulin; Z99.2 - Dependence on renal dialysis (4) Dyslipidemia Code(s): E78.5 - HYPERLIPIDEMIA, UNSPECIFIED Status: Chronic (5) ESRD on hemodialysis Code(s): N18.6 - END STAGE RENAL DISEASE; Z99.2 - DEPENDENCE ON RENAL DIALYSIS Status: Chronic (6) Hypertension Code(s): I10 - ESSENTIAL (PRIMARY) HYPERTENSION Status: Chronic Qualifiers: Hypertension type: essential hypertension Qualified Code(s): I10 - Essential (primary) hypertension (7) UTI (urinary tract infection) Status: Acute (8) Hyponatremia Code(s): E87.1 - HYPO-OSMOLALITY AND HYPONATREMIA Status: Acute (9) Discitis Code(s): M46.40 - DISCITIS, UNSPECIFIED, SITE UNSPECIFIED Status: Acute Qualifiers: Spinal region: thoracic Qualified Code(s): M46.44 - Discitis, unspecified, thoracic region - Plan s/p dialysis (07/04); well tolerated blood pressure well controlled; continue current regimen and continue to follow as decadron tapered down Blood glucose borderline low; reduced glargine to 30 units; on hypoglycemic protocol Will continue cefazolin IV per ID; will likely need lifelong considering instrumentation but will defer to Dr. Ward Pending rehab placement.
[2019-07-04] MEDS: tiZANidine HCl 4 MG TAB PO PRN (23:19)
[2019-07-05] MEDS: Lidocaine Patch Removal 1 EACH TOP SCH (05:00)
[2019-07-05] MEDS: Dexamethasone 4 mg/ml Vial SLOW IVP SCH ×4 (05:15→23:37)
[2019-07-05 06:24] LABS: Hemoglobin 9.9 g/dL (12.0-16.0); Mean Corpuscular HGB CONC 29.5 g/dL (32.0-36.0); Mean Corpuscular Hemoglobin 28.7 pg (27.0-31.0); Mean Corpuscular Volume 97.4 fL (78.0-98.0); Mean Platelet Volume 7.8 fL (7.4-10.4); Platelet Count 230 thou/uL (130-400); RBC Distribution Width 14.6 % (11.5-14.5); Red Blood Cell (RBC) Count 3.44 mill/uL (4.20-5.40); White Blood Cell (WBC) Count 21.3 thou/uL (4.8-10.8)
[2019-07-05 06:25] LABS: Band 2 % (5-11); Lymphocytes 8 % (21-51); MDiff Complete? YES; Monocytes 6 % (0-10); Myelocyte 1 % (0-0); Neutrophil 83 % (42-75)
[2019-07-05] MEDS: HYDROcodone/Acetaminophen 5/325 mg Tablet PO PRN ×3 (08:17→20:52)
[2019-07-05] MEDS: Metoprolol Tartrate 25 MG TAB PO SCH ×2 (08:21→20:40)
[2019-07-05] MEDS: Amlodipine 10 MG TAB PO SCH (08:21)
[2019-07-05] MEDS: Senokot S 8.6-50 MG TAB PO SCH ×2 (08:21→20:40)
[2019-07-05] MEDS: Ferrous Sulfate 325 MG TAB PO SCH ×2 (08:21→20:40)
[2019-07-05] MEDS: Gemfibrozil 600 MG TAB PO SCH (08:21)
[2019-07-05] MEDS: Famotidine 20 MG TAB PO SCH (08:22)
[2019-07-05] MEDS: Enoxaparin Sodium 30 MG/0.3 ML SYRINGE SC SCH (08:22)
[2019-07-05] MEDS: cloNIDine 0.1 MG TAB PO SCH ×3 (08:22→20:45)
[2019-07-05] MEDS: Polyethylene Glycol 3350 17 GM Packet PO SCH (08:22)
[2019-07-05] MEDS: Sevelamer Carbonate 800 MG TAB PO SCH ×3 (08:22→17:59)
[2019-07-05] MEDS: Timolol 0.5% Ophth Soln 5 ml Bottle EA EYE SCH ×2 (08:23→20:44)
[2019-07-05] MEDS ORDERED: Insulin Glargine 30 UNITS in Pre-Filled Syringe 1 EACH SC SCH (09:00)
[2019-07-05] MEDS: Floranex Packet PO SCH (09:00)
--- NOTE | 2019-07-05 12:13 | PRG ---
DATE OF SERVICE: 07/05/2019 SUBJECTIVE: A 59-year-old female being seen for end-stage renal disease. The patient denied any nausea, vomiting, or chest pain. OBJECTIVE: CONSTITUTIONAL: On examination, the patient is awake and alert. VITAL SIGNS: Afebrile. Pulse 64, breathing 16, blood pressure 133/69. See above. GENERAL APPEARANCE AND MENTAL STATUS: Fair. HEAD/NECK: Normocephalic. Atraumatic. EYES: EOMI. No deformity. EARS: Clear. No ulcers. NOSE: Intact. No lesions. MOUTH: Clear. No discharge. THROAT: Clear. No exudate. LUNGS: Clear. No crackles. CARDIAC: S1, S2. No rub. ABDOMEN: Benign. Bowel sounds positive. GENITALIA/RECTUM: Weeks absent. BACK/EXTREMITIES: Edema 0+. NEUROLOGICAL: Alert and motor intact. SKIN: LYMPHATICS: LABORATORY DATA: Labs reviewed. ASSESSMENT AND PLAN: 1. Stage 6 chronic kidney disease. Plan dialysis tomorrow. 2. Hypertension, stable. 3. Anemia, stable. 4. Medications based on GFR appropriate. Job ID: [id number]
[2019-07-05] MEDS: Lidocaine 5% Patch TD SCH (16:41)
[2019-07-05] MEDS: CEFAZOLIN 2 GM in Premix Bag 1 BAG IVPB SCH (18:00)
--- NOTE | 2019-07-05 18:23 | PDOC.HOSPP ---
- Subjective Encounter Date: 07/05/19 Encounter Time: 11:00 Subjective: no overnight events. No additional episodes of hypoglycemia. Feeling well and has no complaints. - Objective Vital Signs & Weight: Vital Signs (12 hours) Temp Pulse Resp BP BP Pulse Ox 07/05/19 15:18 98.8 F 72 16 114/74 100 07/05/19 15:03 133/79 07/05/19 11:28 98.4 F 64 16 133/79 100 07/05/19 08:23 67 136/77 07/05/19 08:22 136/77 07/05/19 08:21 67 136/77 07/05/19 08:00 97 07/05/19 07:39 98.6 F 67 18 136/77 96 07/05/19 06:28 72 14 98 Weight Admit Weight 196 lb 6.91 oz Weight 188 lb 14.978 oz Most Recent Monitor Data Heart Rate from ECG 67 NIBP 153/65 NIBP BP-Mean 94 Respiration from ECG 15 SpO2 100 I&O: 07/04/19 07/05/19 07/06/19 06:59 06:59 06:59 Intake Total 800 980 Output Total 500 1050 Balance 300 -70 Result Diagrams: 07/05/19 05:16 07/03/19 05:04 Additional Labs: Accuchecks 07/05/19 07/05/19 07/05/19 15:20 10:48 05:18 POC Glucose 74 94 83 07/04/19 20:49 POC Glucose 83 Hospitalist ROS - Review of Systems Constitutional: denies: fever, chills, sweats, weakness, malaise, other Cardiovascular: denies: chest pain, palpitations, orthopnea, paroxysmal noc. dyspnea, edema, light headedness, other Gastrointestinal: denies: nausea, vomiting, abdominal pain, diarrhea, constipation, melena, hematochezia, other Genitourinary: denies: dysuria, frequency, incontinence, hematuria, retention, other Musculoskeletal: reports: neck pain, back pain (mild pain, improving) Neurological: denies: weakness, numbness, incoordination - Medication Medications: Active Medications Generic Name Dose Route Start Last Admin Trade Name Freq PRN Reason Stop Dose Admin Acetaminophen/Codeine Phosphate 1 tab 06/28/19 10:01 07/02/19 09:49 Tylenol #3 PO 1 tab Q4H PRN Administration Mild Pain (1-3) Hydrocodone Bitart/Acetaminophen 1 tab 06/28/19 10:01 07/05/19 15:02 [place] 5/325 PO 1 tab Q4H PRN Administration Moderate Pain (4-6) Acidophilus 1 gm 06/27/19 09:00 07/05/19 09:00 Floranex PO 1 gm DAILY HOMERO Administration Albuterol/Ipratropium 3 ml 06/28/19 10:30 07/05/19 14:13 Duoneb EZPAP Not Given [id number] HOMERO Amlodipine Besylate 10 mg 07/02/19 09:00 07/05/19 08:21 Norvasc PO 10 mg DAILY HOMERO Administration Atorvastatin Calcium 20 mg 06/27/19 21:00 07/04/19 20:07 Lipitor PO 20 mg HS HOMERO Administration Clonidine 0.1 mg 07/01/19 21:00 07/05/19 15:03 Catapres PO 0.1 mg TID HOMERO Administration Dexamethasone 1 mg 07/04/19 12:00 07/05/19 17:59 Decadron SLOW IVP 07/06/19 06:01 1 mg Q6HR HOMERO Administration Enoxaparin Sodium 30 mg 07/01/19 09:00 07/05/19 08:22 Lovenox SC 30 mg 0900 HOMERO Administration Famotidine 20 mg 06/27/19 09:00 07/05/19 08:22 Pepcid PO 20 mg DAILY HOMERO Administration Ferrous Sulfate 325 mg 06/27/19 09:00 07/05/19 08:21 Feosol PO 325 mg BID HOMERO Administration Gemfibrozil 600 mg 06/27/19 09:00 07/05/19 08:21 Lopid PO 600 mg DAILY HOMERO Administration Guaifenesin 100 mg 07/04/19 03:27 07/04/19 07:52 Robitussin Sf PO 100 mg Q4H PRN Administration Cough Hydralazine HCl 10 mg 06/30/19 06:38 07/01/19 10:41 Apresoline SLOW IVP 10 mg Q15MIN PRN Administration SBP >160 and/or DBP >100 Cefazolin Sodium/Dextrose 2 gm 50 mls @ 100 mls/hr 06/29/19 17:00 07/05/19 18 :00 / Device IVPB 50 mls 1700 HOMERO Administration Insulin Glargine 30 units/ 0.3 mls @ 0 mls/hr 07/05/19 09:00 07/05/19 08:23 Miscellaneous Medication SC 0.3 mls QAM HOMERO Administration Insulin Human Lispro 0 units 06/28/19 06:22 07/01/19 16:16 Humalog SC 2 unit .MODERATE SLIDING SC PRN Administration MODERATE SLIDING SCALE Protocol Lidocaine 1 patch 07/04/19 16:00 07/05/19 16:41 Lidoderm 5% Patch TD 1 patch 1600 HOMERO Administration Metoprolol Tartrate 25 mg 06/27/19 09:00 07/05/19 08:21 Lopressor PO 25 mg BID HOMERO Administration Miscellaneous Medication 1 each 07/05/19 04:00 07/05/19 05:00 Lidocaine Patch Removal TOP 1 each 0400 HOMERO Administration Morphine Sulfate 2 mg 06/28/19 10:01 07/04/19 21:53 Morphine SLOW IVP 2 mg Q2H PRN Administration Severe Pain (7-10) Ondansetron HCl 4 mg 06/26/19 23:07 06/27/19 19:39 Zofran IVP 4 mg Q6H PRN Administration Nausea/Vomiting Polyethylene Glycol 17 gm 06/27/19 09:00 07/05/19 08:22 Miralax PO 17 gm DAILY HOMERO Administration Senna/Docusate Sodium 2 tab 06/29/19 09:00 07/05/19 08:21 Senokot S PO 2 tab BID HOMERO Administration Sertraline HCl 100 mg 06/27/19 21:00 07/04/19 20:07 Zoloft PO 100 mg HS HOMERO Administration Sevelamer Carbonate 1,600 mg 06/27/19 08:00 07/05/19 17:59 Renvela PO 1,600 mg TID-WM HOMERO Administration Timolol Maleate 1 drop 06/27/19 09:00 07/05/19 08:23 Timoptic 0.5% Ophth Soln EA EYE 1 drop BID HOMERO Administration Tizanidine HCl 4 mg 06/26/19 23:07 07/04/19 23:19 Zanaflex PO 4 mg Q8HR PRN Administration Muscle Spasm - Exam General Appearance: NAD, awake alert Neck: supple, symmetric, no JVD Heart: RRR, no murmur, no gallops, no rubs, normal peripheral pulses Respiratory: CTAB, no wheezes, no rales, no ronchi, normal chest expansion, no tachypnea, normal percussion Gastrointestinal: soft, non-tender, non-distended, normal bowel sounds, no palpable masses, no hepatomegaly, no splenomegaly, no bruit Psychiatric: normal affect, normal behavior, A&O x 3 Hosp A/P - Plan (1) Cervical discitis Code(s): M46.42 - DISCITIS, UNSPECIFIED, CERVICAL REGION Status: Acute (2) Osteomyelitis Code(s): M86.9 - OSTEOMYELITIS, UNSPECIFIED Status: Acute Qualifiers: Osteomyelitis type: unspecified type Osteomyelitis location: other site Qualified Code(s): M86.9 - Osteomyelitis, unspecified (3) DM2 (diabetes mellitus, type 2) Status: Chronic Qualifiers: Diabetes mellitus superintendent terminal insulin use: with superintendent terminal use Diabetes mellitus complication status: with kidney complications Diabetes mellitus complication detail: with chronic kidney disease Chronic kidney disease stage : on chronic dialysis Qualified Code(s): E11.22 - Type 2 diabetes mellitus with diabetic chronic kidney disease; N18.6 - End stage renal disease; Z79.4 - superintendent terminal (current) use of insulin; Z99.2 - Dependence on renal dialysis (4) Dyslipidemia Code(s): E78.5 - HYPERLIPIDEMIA, UNSPECIFIED Status: Chronic (5) ESRD on hemodialysis Code(s): N18.6 - END STAGE RENAL DISEASE; Z99.2 - DEPENDENCE ON RENAL DIALYSIS Status: Chronic (6) Hypertension Code(s): I10 - ESSENTIAL (PRIMARY) HYPERTENSION Status: Chronic Qualifiers: Hypertension type: essential hypertension Qualified Code(s): I10 - Essential (primary) hypertension (7) UTI (urinary tract infection) Status: Acute (8) Hyponatremia Code(s): E87.1 - HYPO-OSMOLALITY AND HYPONATREMIA Status: Acute (9) Discitis Code(s): M46.40 - DISCITIS, UNSPECIFIED, SITE UNSPECIFIED Status: Acute Qualifiers: Spinal region: thoracic Qualified Code(s): M46.44 - Discitis, unspecified, thoracic region - Plan blood pressure well controlled; continue current regimen and continue to follow as decadron tapered down; reduce glargine to 25 units; on hypoglycemic protocol Will continue cefazolin IV per ID (who doesn't suspect urinary VRE to be the culprit); will likely need lifelong considering instrumentation but will defer to Dr. Ward Pending SNR placement.
[2019-07-05] MEDS: Atorvastatin Calcium 20 MG TAB PO SCH (20:40)
[2019-07-05] MEDS: tiZANidine HCl 4 MG TAB PO PRN (20:52)
[2019-07-06] MEDS: HYDROcodone/Acetaminophen 5/325 mg Tablet PO PRN ×4 (01:00→22:25)
[2019-07-06] MEDS: Lidocaine Patch Removal 1 EACH TOP SCH (05:00)
[2019-07-06] MEDS: Dexamethasone 4 mg/ml Vial SLOW IVP SCH (06:42)
[2019-07-06] MEDS: Sevelamer Carbonate 800 MG TAB PO SCH ×3 (08:47→16:57)
[2019-07-06] MEDS: Amlodipine 10 MG TAB PO SCH (08:48)
[2019-07-06] MEDS ORDERED: Insulin Glargine 25 UNITS in Pre-Filled Syringe 1 EACH SC SCH (09:00)
[2019-07-06] MEDS: Floranex Packet PO SCH (09:02)
[2019-07-06] MEDS: Senokot S 8.6-50 MG TAB PO SCH ×2 (09:03→20:46)
[2019-07-06] MEDS: Famotidine 20 MG TAB PO SCH (09:03)
[2019-07-06] MEDS: Ferrous Sulfate 325 MG TAB PO SCH ×2 (09:03→20:45)
[2019-07-06] MEDS: Gemfibrozil 600 MG TAB PO SCH (09:03)
[2019-07-06] MEDS: Enoxaparin Sodium 30 MG/0.3 ML SYRINGE SC SCH (09:04)
[2019-07-06] MEDS: cloNIDine 0.1 MG TAB PO SCH ×3 (09:04→20:55)
[2019-07-06] MEDS: Timolol 0.5% Ophth Soln 5 ml Bottle EA EYE SCH ×2 (09:05→21:30)
[2019-07-06] MEDS: Polyethylene Glycol 3350 17 GM Packet PO SCH (09:05)
[2019-07-06] MEDS: Metoprolol Tartrate 25 MG TAB PO SCH ×2 (09:05→20:56)
--- NOTE | 2019-07-06 10:11 | PRG ---
DATE OF SERVICE: 07/06/2019 SUBJECTIVE: Patient was seen and examined at bedside and overnight events noted. Patient denies any shortness of breath or chest pain or palpitation. No history of nausea or vomiting or diarrhea or fever or chills or cramps. OBJECTIVE: GENERAL: This is an obese female, in no acute distress. VITAL SIGNS: Temperature 98.2. Heart rate 65. Respiratory rate 16. Blood pressure 127/84. HEENT: Atraumatic and normocephalic. Oral mucosa is moist NECK: Supple. CARDIOVASCULAR: S1, S2 heard. Rate and rhythm regular. RESPIRATORY: Clear to auscultation. GASTROINTESTINAL: Abdomen is soft. MUSCULOSKELETAL: No tenderness. No edema. DERMATOLOGIC: No skin rash. NEUROLOGIC: Alert and awake and oriented X3. No focal neurologic deficits. Moving all the extremities. PSYCHIATRIC: Mood and affect normal. LABORATORY DATA: Not done today. ASSESSMENT AND PLAN: 1. End-stage renal disease. Continue dialysis as tolerated, Saturday, Saturday, and Saturday. 2. Edema, controlled. 3. Hypertension. 4. Chronic anemia. We will continue dialysis; Saturday, Saturday, and Saturday as tolerated. Job ID: [id number]
[2019-07-06] MEDS: Acetaminophen/Codeine 30-300mg Tablet PO PRN ×2 (11:21→17:25)
[2019-07-06] MEDS: tiZANidine HCl 4 MG TAB PO PRN (11:22)
[2019-07-06] MEDS: Lidocaine 5% Patch TD SCH (16:57)
[2019-07-06] MEDS: CEFAZOLIN 2 GM in Premix Bag 1 BAG IVPB SCH (16:58)
[2019-07-06] MEDS: Atorvastatin Calcium 20 MG TAB PO SCH (20:45)
--- NOTE | 2019-07-06 21:56 | PDOC.HOSPP ---
- Subjective Encounter Date: 07/06/19 Encounter Time: 11:00 Subjective: overnight, another episode of fasting hypoglycemia. Had breakfast and feels well , has no complaints. - Objective Vital Signs & Weight: Vital Signs (12 hours) Temp Pulse Resp BP BP Pulse Ox 07/06/19 20:55 116/65 07/06/19 19:59 97.9 F 70 16 100 07/06/19 19:30 69 16 99 07/06/19 14:37 127/84 07/06/19 14:11 67 20 96 07/06/19 10:28 98.7 F 72 18 143/77 H 100 07/06/19 10:26 68 20 100 Weight Admit Weight 196 lb 6.91 oz Weight 191 lb 2 oz Most Recent Monitor Data Heart Rate from ECG 67 NIBP 153/65 NIBP BP-Mean 94 Respiration from ECG 15 SpO2 100 I&O: 07/05/19 07/06/19 07/07/19 06:59 06:59 06:59 Intake Total 980 1445 Output Total 1050 850 Balance -70 595 Result Diagrams: 07/05/19 05:16 07/03/19 05:04 Additional Labs: Accuchecks 07/06/19 07/06/19 07/06/19 20:16 15:13 10:28 POC Glucose 93 134 H 117 H 07/06/19 07/06/19 07/06/19 09:34 07:01 06:38 POC Glucose 104 86 50 L* Hospitalist ROS - Review of Systems Constitutional: denies: fever, chills, sweats, weakness, malaise, other Respiratory: denies: cough, dry, shortness of breath, hemoptysis, SOB with excertion, pleuritic pain, sputum, wheezing, other Cardiovascular: denies: chest pain, palpitations, orthopnea, paroxysmal noc. dyspnea, edema, light headedness, other Gastrointestinal: denies: nausea, vomiting, abdominal pain, diarrhea, constipation, melena, hematochezia, other Musculoskeletal: reports: neck pain, back pain Neurological: denies: weakness, numbness, incoordination - Medication Medications: Active Medications Generic Name Dose Route Start Last Admin Trade Name Freq PRN Reason Stop Dose Admin Acetaminophen/Codeine Phosphate 1 tab 06/28/19 10:01 07/06/19 17:25 Tylenol #3 PO 1 tab Q4H PRN Administration Mild Pain (1-3) Hydrocodone Bitart/Acetaminophen 1 tab 06/28/19 10:01 07/06/19 14:35 Skipwith 5/325 PO 1 tab Q4H PRN Administration Moderate Pain (4-6) Acidophilus 1 gm 06/27/19 09:00 07/06/19 09:02 Floranex PO 1 gm DAILY HOMERO Administration Albuterol/Ipratropium 3 ml 06/28/19 10:30 07/06/19 19:30 Duoneb EZPAP 3 ml [id number] HOMERO Administration Amlodipine Besylate 10 mg 07/02/19 09:00 07/06/19 08:48 Norvasc PO 10 mg DAILY HOMERO Administration Atorvastatin Calcium 20 mg 06/27/19 21:00 07/06/19 20:45 Lipitor PO 20 mg HS HOMERO Administration Clonidine 0.1 mg 07/01/19 21:00 07/06/19 20:55 Catapres PO Not Given TID HOMERO Enoxaparin Sodium 30 mg 07/01/19 09:00 07/06/19 09:04 Lovenox SC 30 mg 0900 HOMERO Administration Famotidine 20 mg 06/27/19 09:00 07/06/19 09:03 Pepcid PO 20 mg DAILY HOMERO Administration Ferrous Sulfate 325 mg 06/27/19 09:00 07/06/19 20:45 Feosol PO 325 mg BID HOMERO Administration Gemfibrozil 600 mg 06/27/19 09:00 07/06/19 09:03 Lopid PO 600 mg DAILY HOMERO Administration Guaifenesin 100 mg 07/04/19 03:27 07/04/19 07:52 Robitussin Sf PO 100 mg Q4H PRN Administration Cough Hydralazine HCl 10 mg 06/30/19 06:38 07/01/19 10:41 Apresoline SLOW IVP 10 mg Q15MIN PRN Administration SBP >160 and/or DBP >100 Cefazolin Sodium/Dextrose 2 gm 50 mls @ 100 mls/hr 06/29/19 17:00 07/06/19 16 :58 / Device IVPB 50 mls 1700 HOMERO Administration Insulin Human Lispro 0 units 06/28/19 06:22 07/01/19 16:16 Humalog SC 2 unit .MODERATE SLIDING SC PRN Administration MODERATE SLIDING SCALE Protocol Lidocaine 1 patch 07/04/19 16:00 07/06/19 16:57 Lidoderm 5% Patch TD 1 patch 1600 HOMERO Administration Metoprolol Tartrate 25 mg 06/27/19 09:00 07/06/19 20:56 Lopressor PO Not Given BID HOMERO Miscellaneous Medication 1 each 07/05/19 04:00 07/06/19 05:00 Lidocaine Patch Removal TOP 1 each 0400 HOMERO Administration Morphine Sulfate 2 mg 06/28/19 10:01 07/04/19 21:53 Morphine SLOW IVP 2 mg Q2H PRN Administration Severe Pain (7-10) Ondansetron HCl 4 mg 06/26/19 23:07 06/27/19 19:39 Zofran IVP 4 mg Q6H PRN Administration Nausea/Vomiting Polyethylene Glycol 17 gm 06/27/19 09:00 07/06/19 09:05 Miralax PO 17 gm DAILY HOMERO Administration Senna/Docusate Sodium 2 tab 06/29/19 09:00 07/06/19 20:46 Senokot S PO 2 tab BID HOMERO Administration Sertraline HCl 100 mg 06/27/19 21:00 07/06/19 20:45 Zoloft PO 100 mg HS HOMERO Administration Sevelamer Carbonate 1,600 mg 06/27/19 08:00 07/06/19 16:57 Renvela PO 1,600 mg TID-WM HOMERO Administration Timolol Maleate 1 drop 06/27/19 09:00 07/06/19 09:05 Timoptic 0.5% Ophth Soln EA EYE 1 drop BID HOMERO Administration Tizanidine HCl 4 mg 06/26/19 23:07 07/06/19 11:22 Zanaflex PO 4 mg Q8HR PRN Administration Muscle Spasm - Exam General Appearance: NAD, awake alert Neck: no JVD Heart: RRR, no murmur, no gallops Respiratory: CTAB, no wheezes, no rales, no ronchi Gastrointestinal: soft, non-tender, non-distended, normal bowel sounds, no bruit Psychiatric: normal affect, normal behavior, A&O x 3 Hosp A/P - Plan (1) Cervical discitis Code(s): M46.42 - DISCITIS, UNSPECIFIED, CERVICAL REGION Status: Acute (2) Osteomyelitis Code(s): M86.9 - OSTEOMYELITIS, UNSPECIFIED Status: Acute Qualifiers: Osteomyelitis type: unspecified type Osteomyelitis location: other site Qualified Code(s): M86.9 - Osteomyelitis, unspecified (3) DM2 (diabetes mellitus, type 2) Status: Chronic Qualifiers: Diabetes mellitus alf insulin use: with exterminator helper termite use Diabetes mellitus complication status: with kidney complications Diabetes mellitus complication detail: with chronic kidney disease Chronic kidney disease stage : on chronic dialysis Qualified Code(s): E11.22 - Type 2 diabetes mellitus with diabetic chronic kidney disease; N18.6 - End stage renal disease; Z79.4 - FCI (current) use of insulin; Z99.2 - Dependence on renal dialysis (4) Dyslipidemia Code(s): E78.5 - HYPERLIPIDEMIA, UNSPECIFIED Status: Chronic (5) ESRD on hemodialysis Code(s): N18.6 - END STAGE RENAL DISEASE; Z99.2 - DEPENDENCE ON RENAL DIALYSIS Status: Chronic (6) Hypertension Code(s): I10 - ESSENTIAL (PRIMARY) HYPERTENSION Status: Chronic Qualifiers: Hypertension type: essential hypertension Qualified Code(s): I10 - Essential (primary) hypertension (7) UTI (urinary tract infection) Status: Acute (8) Hyponatremia Code(s): E87.1 - HYPO-OSMOLALITY AND HYPONATREMIA Status: Acute (9) Discitis Code(s): M46.40 - DISCITIS, UNSPECIFIED, SITE UNSPECIFIED Status: Acute Qualifiers: Spinal region: thoracic Qualified Code(s): M46.44 - Discitis, unspecified, thoracic region - Plan blood pressure well controlled; continue current regimen and continue to follow as decadron tapered down; reduce glargine to 15 units; on hypoglycemic protocol Will continue cefazolin IV per ID (who doesn't suspect urinary VRE to be the culprit); will likely need lifelong considering instrumentation but will defer to Dr. Ward Pending SNR placement.
[2019-07-07] MEDS: Acetaminophen/Codeine 30-300mg Tablet PO PRN ×3 (01:47→15:30)
[2019-07-07] MEDS: HYDROcodone/Acetaminophen 5/325 mg Tablet PO PRN ×3 (03:15→18:36)
[2019-07-07] MEDS: Morphine 2 MG/ML SYRINGE SLOW IVP PRN ×4 (04:46→20:35)
[2019-07-07] MEDS: tiZANidine HCl 4 MG TAB PO PRN (04:46)
[2019-07-07] MEDS: Simethicone Chewable 80 MG TAB PO PRN ×2 (04:59→18:36)
[2019-07-07 05:24] LABS: Anion Gap 18 mmol/L (10-20); BUN (Urea Nitrogen) 50 mg/dL (9.8-20.1); Calc. Creatinine Clearance 24 mL/min (70-130); Calcium 8.4 mg/dL (7.8-10.44); Carbon Dioxide 21 mmol/L (22-29); Chloride 99 mmol/L (98-107); Estimated GFR-MDRD 14; Glucose 98 mg/dL (70-105); Potassium 4.9 mmol/L (3.5-5.1); Sodium 133 mmol/L (136-145)
[2019-07-07] MEDS: Lidocaine Patch Removal 1 EACH TOP SCH (07:25)
--- NOTE | 2019-07-07 07:58 | RAD ---
KUB INDICATION: Abdominal pain without a bowel movement COMPARISON: None FINDINGS: Bowel gas: There is a prominent lateral retained stool within the colon and rectum. Bowel gas pattern is otherwise nonspecific. Lung bases: Not well seen Additional findings: No suspicious calcification demonstrated. Osseous structures: No acute osseous abnormality is demonstrated. Partial visualization of spinal instrumentation involving thoracic spine. IMPRESSION: 1. Prominent amount retained stool within the colon and rectum
[2019-07-07] MEDS: Gemfibrozil 600 MG TAB PO SCH (08:43)
[2019-07-07] MEDS: Enoxaparin Sodium 30 MG/0.3 ML SYRINGE SC SCH (08:43)
[2019-07-07] MEDS: Famotidine 20 MG TAB PO SCH (08:43)
[2019-07-07] MEDS: Polyethylene Glycol 3350 17 GM Packet PO SCH (08:43)
[2019-07-07] MEDS: Ferrous Sulfate 325 MG TAB PO SCH ×2 (08:43→20:34)
[2019-07-07] MEDS: Senokot S 8.6-50 MG TAB PO SCH ×2 (08:44→20:34)
[2019-07-07] MEDS: Sevelamer Carbonate 800 MG TAB PO SCH ×4 (08:45→16:48)
[2019-07-07] MEDS: Timolol 0.5% Ophth Soln 5 ml Bottle EA EYE SCH ×2 (08:52→20:35)
[2019-07-07] MEDS: cloNIDine 0.1 MG TAB PO SCH ×3 (09:20→20:34)
[2019-07-07] MEDS: Metoprolol Tartrate 25 MG TAB PO SCH ×2 (09:21→20:34)
[2019-07-07] MEDS: Insulin Glargine 15 UNITS in Pre-Filled Syringe 1 EACH SC SCH (09:22)
--- NOTE | 2019-07-07 11:09 | PRG ---
DATE OF SERVICE: 07/07/2019 This is Mark Egan PA-C dictating a report for Diego Cummings MD. Ms. Bright is postoperative day #9 having undergone cervical and thoracic fusions for progressive osteomyelitis. The patient is complaining of mid back pain, spasms, and some abdominal pain secondary to abdominal bowel gas. The patient has been sitting at the edge of the bed, but has not . She has been wearing her [place] collar all the time head of bed is above 30 when she is out of bed. She is eating. We will work on a bowel regimen. She is also to remain on antibiotics. Dr. Ward is helping us to manage these. She also remains on Lovenox for DVT prophylaxis. Overall, the patient is continuing to improve and will likely meet criteria for inpatient rehab in the next few days. I would like her to continue working with therapies. Neurologically, the patient is antigravity in the bilateral lower extremities and does appear as though she is continuing to improve. She has good strength in the bilateral upper extremities. She is essentially dysphonic and has been tolerating a soft diet. Job ID: [id number]
[2019-07-07] MEDS ORDERED: Heparin 10,000 UNITS/ 10 ML VIAL ONE (11:56)
[2019-07-07] MEDS: Amlodipine 10 MG TAB PO SCH (14:59)
[2019-07-07] MEDS: Floranex Packet PO SCH (15:30)
[2019-07-07] MEDS: Lidocaine 5% Patch TD SCH (15:30)
[2019-07-07] MEDS: CEFAZOLIN 2 GM in Premix Bag 1 BAG IVPB SCH (16:30)
--- NOTE | 2019-07-07 16:32 | PRG ---
DATE OF SERVICE: 07/07/2019 SUBJECTIVE: Patient was seen and examined at bedside and overnight events noted. Patient denies any shortness of breath or chest pain or palpitation. No history of nausea or vomiting or diarrhea or fever or chills or cramps. OBJECTIVE: GENERAL: This is an obese female, in no apparent distress. VITAL SIGNS: Temperature 98.1. Heart rate 86. Respiratory rate 16. Blood pressure 96/60. HEENT: Atraumatic, normocephalic. Oral mucosa is moist NECK: Supple. CARDIOVASCULAR: S1, S2 heard. Rate and rhythm regular. RESPIRATORY: Clear to auscultation. GASTROINTESTINAL: Abdomen is soft. MUSCULOSKELETAL: No tenderness. No edema. DERMATOLOGIC: No skin rash. NEUROLOGIC: Alert and awake and oriented X3. No focal neurologic deficits. Moving all the extremities. PSYCHIATRIC: Mood and affect normal. LABORATORY DATA: Potassium 4.9, BUN is 50, and creatinine is 3.1. ASSESSMENT AND PLAN: 1. End-stage renal disease. Continue dialysis Saturday, , and Saturday. She had dialysis today, but was not able to finish dialysis, was able to run only 3 hours. 2. Edema. We will remove fluid with dialysis as tolerated. 3. Hypertension. 4. Anemia. Recheck labs in the morning. Could not finish dialysis today. We will have close followup. Job ID: [id number]
[2019-07-07] MEDS ORDERED: Mineral Oil ENEMA PR SCH (17:00)
--- NOTE | 2019-07-07 19:44 | PDOC.HOSPP ---
- Subjective Encounter Date: 07/07/19 Encounter Time: 10:00 Subjective: no overnight events. This morning, complains about abdominal pain, mostly epigastric. Otherwise no complaints - Objective Vital Signs & Weight: Vital Signs (12 hours) Temp Pulse Resp BP BP Pulse Ox 07/07/19 18:22 81 16 07/07/19 14:59 86 96/60 07/07/19 14:40 98.1 F 86 16 96/60 99 07/07/19 14:28 82 16 99 07/07/19 09:20 99/65 07/07/19 08:52 73 07/07/19 08:40 100 07/07/19 07:57 73 16 100 Weight Admit Weight 196 lb 6.91 oz Weight 191 lb 1.9 oz Most Recent Monitor Data Heart Rate from ECG 67 NIBP 153/65 NIBP BP-Mean 94 Respiration from ECG 15 SpO2 100 I&O: 07/06/19 07/07/19 07/08/19 06:59 06:59 06:59 Intake Total 1445 730 Output Total 850 475 Balance 595 255 Result Diagrams: 07/05/19 05:16 07/07/19 04:54 Additional Labs: Accuchecks 07/07/19 07/07/19 07/06/19 16:23 05:05 20:16 POC Glucose 76 109 93 Radiology Reviewed by me: Yes (prominent stool in colon and rectum) Hospitalist ROS - Review of Systems Constitutional: denies: fever, chills, sweats, weakness, malaise, other Respiratory: denies: cough, dry, shortness of breath, hemoptysis, SOB with excertion, pleuritic pain, sputum, wheezing, other Cardiovascular: denies: chest pain, palpitations, orthopnea, paroxysmal noc. dyspnea, edema, light headedness, other Gastrointestinal: reports: abdominal pain, constipation. denies: nausea, vomiting, diarrhea, melena, hematochezia Genitourinary: denies: dysuria, frequency, incontinence, hematuria, retention, other Neurological: denies: weakness, incoordination - Medication Medications: Active Medications Generic Name Dose Route Start Last Admin Trade Name Freq PRN Reason Stop Dose Admin Acetaminophen/Codeine Phosphate 1 tab 06/28/19 10:01 07/07/19 15:30 Tylenol #3 PO 1 tab Q4H PRN Administration Mild Pain (1-3) Hydrocodone Bitart/Acetaminophen 1 tab 06/28/19 10:01 07/07/19 18:36 Emery 5/325 PO 1 tab Q4H PRN Administration Moderate Pain (4-6) Acidophilus 1 gm 06/27/19 09:00 07/07/19 15:30 Floranex PO 1 gm DAILY HOMERO Administration Albuterol/Ipratropium 3 ml 06/28/19 10:30 07/07/19 18:22 Duoneb EZPAP 3 ml [id number] HOMERO Administration Amlodipine Besylate 10 mg 07/02/19 09:00 07/07/19 14:59 Norvasc PO Not Given DAILY HOMERO Atorvastatin Calcium 20 mg 06/27/19 21:00 07/06/19 20:45 Lipitor PO 20 mg HS HOMERO Administration Clonidine 0.1 mg 07/01/19 21:00 07/07/19 14:59 Catapres PO Not Given TID HOMERO Enoxaparin Sodium 30 mg 07/01/19 09:00 07/07/19 08:43 Lovenox SC 30 mg 0900 HOMERO Administration Famotidine 20 mg 06/27/19 09:00 07/07/19 08:43 Pepcid PO 20 mg DAILY HOMERO Administration Ferrous Sulfate 325 mg 06/27/19 09:00 07/07/19 08:43 Feosol PO 325 mg BID HOMERO Administration Gemfibrozil 600 mg 06/27/19 09:00 07/07/19 08:43 Lopid PO 600 mg DAILY HOMERO Administration Guaifenesin 100 mg 07/04/19 03:27 07/04/19 07:52 Robitussin Sf PO 100 mg Q4H PRN Administration Cough Hydralazine HCl 10 mg 06/30/19 06:38 07/01/19 10:41 Apresoline SLOW IVP 10 mg Q15MIN PRN Administration SBP >160 and/or DBP >100 Cefazolin Sodium/Dextrose 2 gm 50 mls @ 100 mls/hr 06/29/19 17:00 07/07/19 16 :30 / Device IVPB 50 mls 1700 HOMERO Administration Insulin Glargine 15 units/ 0.15 mls @ 0 mls/hr 07/06/19 21:51 07/07/19 09:22 Miscellaneous Medication SC Not Given QAM HOMERO As Directed Insulin Human Lispro 0 units 06/28/19 06:22 07/01/19 16:16 Humalog SC 2 unit .MODERATE SLIDING SC PRN Administration MODERATE SLIDING SCALE Protocol Lidocaine 1 patch 07/04/19 16:00 07/07/19 15:30 Lidoderm 5% Patch TD 1 patch 1600 HOMERO Administration Metoprolol Tartrate 25 mg 06/27/19 09:00 07/07/19 09:21 Lopressor PO Not Given BID HOMERO Miscellaneous Medication 1 each 07/05/19 04:00 07/07/19 07:25 Lidocaine Patch Removal TOP 1 each 0400 HOMERO Administration Morphine Sulfate 2 mg 06/28/19 10:01 07/07/19 16:29 Morphine SLOW IVP 2 mg Q2H PRN Administration Severe Pain (7-10) Ondansetron HCl 4 mg 06/26/19 23:07 06/27/19 19:39 Zofran IVP 4 mg Q6H PRN Administration Nausea/Vomiting Polyethylene Glycol 17 gm 06/27/19 09:00 07/07/19 08:43 Miralax PO 17 gm DAILY HOMERO Administration Senna/Docusate Sodium 2 tab 06/29/19 09:00 07/07/19 08:44 Senokot S PO 2 tab BID HOMERO Administration Sertraline HCl 100 mg 06/27/19 21:00 07/06/19 20:45 Zoloft PO 100 mg HS HOMERO Administration Sevelamer Carbonate 1,600 mg 06/27/19 08:00 07/07/19 16:48 Renvela PO Not Given TID-WM [facility] Simethicone 80 mg 07/07/19 04:53 07/07/19 18:36 Mylicon Chewable PO 80 mg PCHS PRN Administration Gas Pain Timolol Maleate 1 drop 06/27/19 09:00 07/07/19 08:52 Timoptic 0.5% Ophth Soln EA EYE Not Given BID [facility] Tizanidine HCl 4 mg 06/26/19 23:07 07/07/19 04:46 Zanaflex PO 4 mg Q8HR PRN Administration Muscle Spasm - Exam General Appearance: NAD, awake alert Heart: RRR, no murmur, no gallops, no rubs, normal peripheral pulses Respiratory: CTAB, no wheezes, no rales, no ronchi Gastrointestinal: soft, non-distended, normal bowel sounds, tender to palpation Extremities: 1+ LE edema Neurological: cranial nerve grossly intact Psychiatric: normal affect, normal behavior, A&O x 3 Hosp A/P - Plan (1) Cervical discitis Code(s): M46.42 - DISCITIS, UNSPECIFIED, CERVICAL REGION Status: Acute (2) Osteomyelitis Code(s): M86.9 - OSTEOMYELITIS, UNSPECIFIED Status: Acute Qualifiers: Osteomyelitis type: unspecified type Osteomyelitis location: other site Qualified Code(s): M86.9 - Osteomyelitis, unspecified Constipation AXR (3) DM2 (diabetes mellitus, type 2) Status: Chronic Qualifiers: Diabetes mellitus intermediate accountant insulin use: with longterm use Diabetes mellitus complication status: with kidney complications Diabetes mellitus complication detail: with chronic kidney disease Chronic kidney disease stage : on chronic dialysis Qualified Code(s): E11.22 - Type 2 diabetes mellitus with diabetic chronic kidney disease; N18.6 - End stage renal disease; Z79.4 - emt intermediate (current) use of insulin; Z99.2 - Dependence on renal dialysis (4) Dyslipidemia Code(s): E78.5 - HYPERLIPIDEMIA, UNSPECIFIED Status: Chronic (5) ESRD on hemodialysis Code(s): N18.6 - END STAGE RENAL DISEASE; Z99.2 - DEPENDENCE ON RENAL DIALYSIS Status: Chronic - Plan -blood pressure well controlled; continue current regimen and continue to follow as decadron tapered down; continue glargine to 15 units; on hypoglycemic protocol -Will continue cefazolin IV per ID (who doesn't suspect urinary VRE to be the culprit); will likely need lifelong considering instrumentation per neurosurgery but will defer to Dr. Ward -For constipation, requested Enema to be done considering distal impaction of feces and despite bowel regimen of docusate/senna, miralax not resulting in bowel movement. Osmotics/promotilities may result in worsening distal accumulation of feces and abdominal pain, and an enema can relieve distal feces and facilitate abovementioned agents. -per neurosurgery, prefers that patient remains to continue therapies and work on bowel regimen. Then inpatient rehab. CM onboard
[2019-07-07] MEDS: Atorvastatin Calcium 20 MG TAB PO SCH (20:34)
[2019-07-08] MEDS: Lidocaine Patch Removal 1 EACH TOP SCH (04:29)
[2019-07-08 05:23] VITALS: BMI 37.4
[2019-07-08 05:44] LABS: Anion Gap 12 mmol/L (10-20); BUN (Urea Nitrogen) 29 mg/dL (9.8-20.1); Calc. Creatinine Clearance 32 mL/min (70-130); Calcium 8.2 mg/dL (7.8-10.44); Carbon Dioxide 26 mmol/L (22-29); Chloride 100 mmol/L (98-107); Estimated GFR-MDRD 19; Glucose 62 mg/dL (70-105); Magnesium 2.4 mg/dL (1.6-2.6); Sodium 134 mmol/L (136-145)
[2019-07-08] MEDS: Floranex Packet PO SCH (08:29)
[2019-07-08] MEDS: Sevelamer Carbonate 800 MG TAB PO SCH ×4 (08:29→16:15)
[2019-07-08] MEDS: Amlodipine 10 MG TAB PO SCH (08:29)
[2019-07-08] MEDS: Bisacodyl 10 MG SUPP PR SCH (08:30)
[2019-07-08] MEDS: Famotidine 20 MG TAB PO SCH (08:30)
[2019-07-08] MEDS: cloNIDine 0.1 MG TAB PO SCH ×3 (08:30→20:44)
[2019-07-08] MEDS: Enoxaparin Sodium 30 MG/0.3 ML SYRINGE SC SCH (08:30)
[2019-07-08] MEDS: Ferrous Sulfate 325 MG TAB PO SCH ×3 (08:30→20:41)
[2019-07-08] MEDS: Milk Of Magnesia 30 ML UDCUP PO SCH (08:31)
[2019-07-08] MEDS: Insulin Glargine 15 UNITS in Pre-Filled Syringe 1 EACH SC SCH (08:31)
[2019-07-08] MEDS: Metoprolol Tartrate 25 MG TAB PO SCH ×2 (08:31→20:43)
[2019-07-08] MEDS: Senokot S 8.6-50 MG TAB PO SCH ×2 (08:31→20:41)
[2019-07-08] MEDS: Polyethylene Glycol 3350 17 GM Packet PO SCH (08:31)
[2019-07-08] MEDS: Timolol 0.5% Ophth Soln 5 ml Bottle EA EYE SCH ×2 (08:31→20:45)
[2019-07-08] MEDS: Gemfibrozil 600 MG TAB PO SCH (08:31)
[2019-07-08] MEDS: Acetaminophen/Codeine 30-300mg Tablet PO PRN (08:33)
--- NOTE | 2019-07-08 10:34 | PRG ---
DATE OF SERVICE: 07/08/2019 SUBJECTIVE: Patient was seen and examined at bedside and overnight events noted. Patient denies any shortness of breath or chest pain or palpitation. No history of nausea or vomiting or diarrhea or fever or chills or cramps. OBJECTIVE: GENERAL: This is an obese female, in no apparent distress. VITAL SIGNS: Temperature 98.3, heart rate 81, respiratory rate 18, blood pressure 110/58. HEENT: Atraumatic, normocephalic. Oral mucosa is moist NECK: Supple. CARDIOVASCULAR: S1, S2 heard. Rate and rhythm regular. RESPIRATORY: Clear to auscultation. GASTROINTESTINAL: Abdomen is soft. MUSCULOSKELETAL: No tenderness. No edema. DERMATOLOGIC: No skin rash. NEUROLOGIC: Alert and awake and oriented X3. No focal neurologic deficits. Moving all the extremities. PSYCHIATRIC: Mood and affect normal. LABORATORY DATA: Potassium 4.0, BUN is 29, and creatinine is 2.6. ASSESSMENT AND PLAN: 1. End-stage renal disease, continue on hemodialysis as tolerated. 2. Edema, controlled. 3. History of hypertension, stable. 4. Anemia of chronic disease. 5. Continue dialysis as tolerated on Saturday, , and Saturday. Job ID: [id number]
[2019-07-08] MEDS: HYDROcodone/Acetaminophen 5/325 mg Tablet PO PRN ×4 (12:39→20:42)
[2019-07-08] MEDS: Morphine 2 MG/ML SYRINGE SLOW IVP PRN (13:22)
--- NOTE | 2019-07-08 13:44 | PRG ---
DATE OF SERVICE: 07/08/2019 Ms. Bright is postoperative day #11 after undergoing cervical and thoracic fusions for progressive osteomyelitis. The patient's primary complaint today is severe abdominal pain, which she states radiates to her back. She states that this pain is very severe and has progressively worsened over the last several days. She states that she has not yet had a bowel movement since surgery. She says that she was passing gas 2 nights ago, but states that she did not pass any gas last night. Likely constipation secondary to narcotic pain medications. She has been initiated on bowel regimen. She continues to experience gradual improvement in strength and movement in her legs. She also has improvement of her dysphagia or dysphonia. [place] collar on at all times. She remains on IV antibiotics, as well as Lovenox for DVT prophylaxis. Patient working with therapies. She has not yet been able to stand, but is able to sit upright in bed. Awake, alert, and appropriate. Appears uncomfortable with hand clenching abdomen when evaluated this morning. Improved movement in both legs. 4/5 strength throughout bilateral lower extremity myotomes, although appears improved. Anterior cervical and thoracic surgical wounds are healing well without signs of infection or drainage. Continue bowel regimen to facilitate bowel movement. The patient will benefit from inpatient rehab and aggressive therapies. From a neurosurgical standpoint, she is clear to go to inpatient rehab at any time. We will continue to follow the patient while she remains in the hospital. Call for any neurologic changes or other concerns. Job ID: [id number] MTDD
[2019-07-08] MEDS: Lidocaine 5% Patch TD SCH (15:24)
[2019-07-08] MEDS: CEFAZOLIN 2 GM in Premix Bag 1 BAG IVPB SCH (16:14)
--- NOTE | 2019-07-08 16:22 | PDOC.HOSPP ---
- Subjective Encounter Date: 07/08/19 Encounter Time: 09:00 Subjective: no overnight events. Had 2 small bowel movements per nurse, one after enema. complains of continued left upper abdominal pain, episodic, sharp. Otherwise no complaints. - Objective Vital Signs & Weight: Vital Signs (12 hours) Temp Pulse Resp BP BP Pulse Ox 07/08/19 15:23 119/74 07/08/19 14:53 98 F 76 16 119/74 98 07/08/19 14:21 77 16 96 07/08/19 12:42 97.6 F 87 16 107/74 97 07/08/19 10:28 80 16 98 07/08/19 08:31 81 110/50 L 07/08/19 08:30 97 07/08/19 08:29 81 110/50 L 07/08/19 07:35 98.3 F 81 18 110/50 L 97 07/08/19 06:48 81 20 98 Weight Admit Weight 196 lb 6.91 oz Weight 191 lb 12.835 oz Most Recent Monitor Data Heart Rate from ECG 67 NIBP 153/65 NIBP BP-Mean 94 Respiration from ECG 15 SpO2 100 I&O: 07/07/19 07/08/19 07/09/19 06:59 06:59 06:59 Intake Total 1445 1130 400 Output Total 850 775 Balance 595 355 400 Result Diagrams: 07/05/19 05:16 07/08/19 05:07 Additional Labs: Accuchecks 07/08/19 07/08/19 07/08/19 15:01 12:45 10:37 POC Glucose 69 L 71 88 07/08/19 07/07/19 07/07/19 05:33 20:17 16:23 POC Glucose 75 125 H 76 Hospitalist ROS - Review of Systems Constitutional: denies: fever, chills, sweats, weakness, malaise, other Respiratory: denies: cough, dry, shortness of breath, hemoptysis, SOB with excertion, pleuritic pain, sputum, wheezing, other Cardiovascular: denies: chest pain, palpitations, orthopnea, paroxysmal noc. dyspnea, edema, light headedness, other Gastrointestinal: reports: abdominal pain, constipation. denies: nausea, vomiting, diarrhea, melena, hematochezia, other Neurological: reports: weakness - Medication Medications: Active Medications Generic Name Dose Route Start Last Admin Trade Name Freq PRN Reason Stop Dose Admin Acetaminophen/Codeine Phosphate 1 tab 06/28/19 10:01 07/08/19 08:33 Tylenol #3 PO 1 tab Q4H PRN Administration Mild Pain (1-3) Hydrocodone Bitart/Acetaminophen 1 tab 06/28/19 10:01 07/08/19 16:14 [place] 5/325 PO 1 tab Q4H PRN Administration Moderate Pain (4-6) Acidophilus 1 gm 06/27/19 09:00 07/08/19 08:29 Floranex PO 1 gm DAILY HOMERO Administration Albuterol/Ipratropium 3 ml 06/28/19 10:30 07/08/19 14:21 Duoneb EZPAP 3 ml [id number] HOMREO Administration Amlodipine Besylate 10 mg 07/02/19 09:00 07/08/19 08:29 Norvasc PO 10 mg DAILY HOMERO Administration Atorvastatin Calcium 20 mg 06/27/19 21:00 07/07/19 20:34 Lipitor PO 20 mg HS HOMERO Administration Bisacodyl 10 mg 07/08/19 09:00 07/08/19 08:30 Dulcolax CO Not Given DAILY HOMERO Clonidine 0.1 mg 07/01/19 21:00 07/08/19 15:23 Catapres PO 0.1 mg TID HOMERO Administration Enoxaparin Sodium 30 mg 07/01/19 09:00 07/08/19 08:30 Lovenox SC 30 mg 0900 HOMERO Administration Famotidine 20 mg 06/27/19 09:00 07/08/19 08:30 Pepcid PO 20 mg DAILY HOMERO Administration Ferrous Sulfate 325 mg 06/27/19 09:00 07/08/19 08:49 Feosol PO Not Given BID HOMERO Gemfibrozil 600 mg 06/27/19 09:00 07/08/19 08:31 Lopid PO 600 mg DAILY [facility]OMERO Administration Guaifenesin 100 mg 07/04/19 03:27 07/04/19 07:52 Robitussin Sf PO 100 mg Q4H PRN Administration Cough Hydralazine HCl 10 mg 06/30/19 06:38 07/01/19 10:41 Apresoline SLOW IVP 10 mg Q15MIN PRN Administration SBP >160 and/or DBP >100 Cefazolin Sodium/Dextrose 2 gm 50 mls @ 100 mls/hr 06/29/19 17:00 07/08/19 16 :14 / Device IVPB 50 mls 1700 HOMERO Administration Insulin Glargine 15 units/ 0.15 mls @ 0 mls/hr 07/06/19 21:51 07/08/19 08:31 Miscellaneous Medication SC Not Given QAM HOMERO As Directed Insulin Human Lispro 0 units 06/28/19 06:22 07/01/19 16:16 Humalog SC 2 unit .MODERATE SLIDING SC PRN Administration MODERATE SLIDING SCALE Protocol Lidocaine 1 patch 07/04/19 16:00 07/08/19 15:24 Lidoderm 5% Patch TD 1 patch 1600 HOMERO Administration Magnesium Hydroxide 30 ml 07/08/19 09:00 07/08/19 08:31 Milk Of Magnesium PO 30 ml DAILY HOMERO Administration Metoprolol Tartrate 25 mg 06/27/19 09:00 07/08/19 08:31 Lopressor PO Not Given BID [facility] Miscellaneous Medication 1 each 07/05/19 04:00 07/08/19 04:29 Lidocaine Patch Removal TOP Not Given 0400 HOMERO Morphine Sulfate 2 mg 06/28/19 10:01 07/08/19 13:22 Morphine SLOW IVP 2 mg Q2H PRN Administration Severe Pain (7-10) Ondansetron HCl 4 mg 06/26/19 23:07 06/27/19 19:39 Zofran IVP 4 mg Q6H PRN Administration Nausea/Vomiting Polyethylene Glycol 17 gm 06/27/19 09:00 07/08/19 08:31 Miralax PO 17 gm DAILY HOMERO Administration Senna/Docusate Sodium 2 tab 06/29/19 09:00 07/08/19 08:31 Senokot S PO 2 tab BID HOMERO Administration Sertraline HCl 100 mg 06/27/19 21:00 07/07/19 20:34 Zoloft PO 100 mg HS HOMERO Administration Sevelamer Carbonate 1,600 mg 06/27/19 08:00 07/08/19 16:15 Renvela PO 1,600 mg TID-WM HOMERO Administration Simethicone 80 mg 07/07/19 04:53 07/07/19 18:36 Mylicon Chewable PO 80 mg PCHS PRN Administration Gas Pain Timolol Maleate 1 drop 06/27/19 09:00 07/08/19 08:31 Timoptic 0.5% Ophth Soln EA EYE 1 drop BID HOMERO Administration Tizanidine HCl 4 mg 06/26/19 23:07 07/07/19 04:46 Zanaflex PO 4 mg Q8HR PRN Administration Muscle Spasm - Exam General Appearance: NAD, awake alert Neck: no JVD Heart: RRR, no murmur, no gallops Respiratory: CTAB, no wheezes, no rales, no ronchi Gastrointestinal: soft, non-tender, non-distended Gastrointestinal - other findings: hypoattenuated bowel sounds Extremities: 1+ LE edema Psychiatric: normal affect, normal behavior, A&O x 3 Hosp A/P - Plan (1) Cervical discitis Code(s): M46.42 - DISCITIS, UNSPECIFIED, CERVICAL REGION Status: Acute (2) Osteomyelitis Code(s): M86.9 - OSTEOMYELITIS, UNSPECIFIED Status: Acute Qualifiers: Osteomyelitis type: unspecified type Osteomyelitis location: other site Qualified Code(s): M86.9 - Osteomyelitis, unspecified Constipation -despite multiple laxatives onboard (3) DM2 (diabetes mellitus, type 2) Status: Chronic Qualifiers: Diabetes mellitus fci insulin use: with middle or intermediate school principal use Diabetes mellitus complication status: with kidney complications Diabetes mellitus complication detail: with chronic kidney disease Chronic kidney disease stage : on chronic dialysis Qualified Code(s): E11.22 - Type 2 diabetes mellitus with diabetic chronic kidney disease; N18.6 - End stage renal disease; Z79.4 - [facility] (current) use of insulin; Z99.2 - Dependence on renal dialysis (4) Dyslipidemia Code(s): E78.5 - HYPERLIPIDEMIA, UNSPECIFIED Status: Chronic (5) ESRD on hemodialysis Code(s): N18.6 - END STAGE RENAL DISEASE; Z99.2 - DEPENDENCE ON RENAL DIALYSIS Status: Chronic - Plan -cleared by NSG for discharge; pending placement -for constipation, will monitor; if continues to have constipation, will stop all other laxatives for trial of mathylnaltrexone; considering patient in no apparent pain on encounters, requested NSG to reassess necessity of multiple short/intermediate acting opioids.
[2019-07-08] MEDS ORDERED: Acetaminophen/Codeine 30-300mg Tablet PO PRN (17:11)
[2019-07-08] MEDS ORDERED: Mineral Oil ENEMA PR SCH (18:30)
[2019-07-08] MEDS: Atorvastatin Calcium 20 MG TAB PO SCH (20:41)
[2019-07-08] MEDS ORDERED: Famotidine 20 MG TAB PO SCH (23:45)
[2019-07-09] MEDS: Ondansetron PF 4 MG/2 ML Vial IVP PRN (02:06)
[2019-07-09] MEDS: Lidocaine Patch Removal 1 EACH TOP SCH (05:58)
[2019-07-09] MEDS ORDERED: Famotidine 20 MG TAB PO SCH (09:00)
[2019-07-09] MEDS: HYDROcodone/Acetaminophen 5/325 mg Tablet PO PRN ×3 (09:00→23:44)
[2019-07-09] MEDS: Enoxaparin Sodium 30 MG/0.3 ML SYRINGE SC SCH (09:01)
[2019-07-09] MEDS: Polyethylene Glycol 3350 17 GM Packet PO SCH (09:02)
[2019-07-09] MEDS: Metoprolol Tartrate 25 MG TAB PO SCH ×2 (09:03→20:45)
[2019-07-09] MEDS: Floranex Packet PO SCH (09:03)
[2019-07-09] MEDS: Ferrous Sulfate 325 MG TAB PO SCH ×2 (09:03→20:44)
[2019-07-09] MEDS: Amlodipine 10 MG TAB PO SCH (09:03)
[2019-07-09] MEDS: Senokot S 8.6-50 MG TAB PO SCH ×2 (09:04→20:45)
[2019-07-09] MEDS: Insulin Glargine 15 UNITS in Pre-Filled Syringe 1 EACH SC SCH (09:04)
[2019-07-09] MEDS: Gemfibrozil 600 MG TAB PO SCH (09:04)
[2019-07-09] MEDS: Milk Of Magnesia 30 ML UDCUP PO SCH (09:05)
[2019-07-09] MEDS: cloNIDine 0.1 MG TAB PO SCH ×3 (09:05→20:44)
[2019-07-09] MEDS: Bisacodyl 10 MG SUPP PR SCH (09:05)
[2019-07-09] MEDS: Timolol 0.5% Ophth Soln 5 ml Bottle EA EYE SCH ×2 (09:06→20:46)
[2019-07-09] MEDS: Sevelamer Carbonate 800 MG TAB PO SCH ×3 (09:16→16:05)
[2019-07-09] MEDS ORDERED: Heparin 10,000 UNITS/ 10 ML VIAL ONE (09:36)
--- NOTE | 2019-07-09 10:35 | PRG ---
DATE OF SERVICE: 07/09/2019 SUBJECTIVE: Patient was seen and examined at bedside and overnight events noted. Patient denies any shortness of breath or chest pain or palpitation. No history of nausea or vomiting or diarrhea or fever or chills or cramps. OBJECTIVE: GENERAL: This is an obese female, in no apparent distress. VITAL SIGNS: Temperature 97.8. Heart rate 67. Respiratory rate 16. Blood pressure 124/61. HEENT: Atraumatic, normocephalic. Oral mucosa is moist. NECK: Supple. CARDIOVASCULAR: S1, S2 heard. Rate and rhythm regular. RESPIRATORY: Clear to auscultation. GASTROINTESTINAL: Abdomen is soft. MUSCULOSKELETAL: No tenderness. No edema. DERMATOLOGIC: No skin rash. NEUROLOGIC: Alert and awake and oriented x3. No focal neurologic deficits. Moving all the extremities. PSYCHIATRIC: Mood and affect normal. LABORATORY DATA: No labs today. ASSESSMENT AND PLAN: 1. End-stage renal disease, continue on hemodialysis on Saturday, , and Saturday. 2. Edema, controlled. 3. History of hypertension. 4. Anemia of chronic disease. Plan to continue dialysis on Saturday, , and Saturday as tolerated. Job ID: [id number]
[2019-07-09] MEDS ORDERED: HYDROcodone/Acetaminophen 5/325 mg Tablet PO SCH (12:45)
[2019-07-09] MEDS: Albumin 25% 25 GM/100 ML BOT IVPB SCH ×2 (13:13→14:00)
[2019-07-09] MEDS: Lidocaine 5% Patch TD SCH (16:04)
[2019-07-09] MEDS: CEFAZOLIN 2 GM in Premix Bag 1 BAG IVPB SCH (16:15)
--- NOTE | 2019-07-09 20:38 | PDOC.HHP ---
Hospitalist ROS - Medication Medications: Active Medications Generic Name Dose Route Start Last Admin Trade Name Freq PRN Reason Stop Dose Admin Acetaminophen/Codeine Phosphate 1 tab 07/08/19 17:11 07/08/19 18:30 Tylenol #3 PO 1 tab Q4H PRN Administration Moderate Pain (4-6) Hydrocodone Bitart/Acetaminophen 1 tab 07/08/19 17:12 07/09/19 16:23 [place] 5/325 PO 1 tab Q4H PRN Administration Severe Pain (7-10) Acidophilus 1 gm 06/27/19 09:00 07/09/19 09:03 Floranex PO 1 gm DAILY HOMERO Administration Albuterol/Ipratropium 3 ml 06/28/19 10:30 07/09/19 19:26 Duoneb EZPAP 3 ml [id number] HOMERO Administration Amlodipine Besylate 10 mg 07/02/19 09:00 07/09/19 09:03 Norvasc PO 10 mg DAILY HOMERO Administration Atorvastatin Calcium 20 mg 06/27/19 21:00 07/08/19 20:41 Lipitor PO 20 mg HS HOMERO Administration Bisacodyl 10 mg 07/08/19 09:00 07/09/19 09:05 Dulcolax [place] Not Given DAILY HOMERO Clonidine 0.1 mg 07/01/19 21:00 07/09/19 16:15 Catapres PO 0.1 mg TID HOMERO Administration Enoxaparin Sodium 30 mg 07/01/19 09:00 07/09/19 09:01 Lovenox SC 30 mg 0900 HOMERO Administration Ferrous Sulfate 325 mg 06/27/19 09:00 07/09/19 09:03 Feosol PO 325 mg BID HOMERO Administration Gemfibrozil 600 mg 06/27/19 09:00 07/09/19 09:04 Lopid PO 600 mg DAILY HOMERO Administration Guaifenesin 100 mg 07/04/19 03:27 07/04/19 07:52 Robitussin Sf PO 100 mg Q4H PRN Administration Cough Hydralazine HCl 10 mg 06/30/19 06:38 07/01/19 10:41 Apresoline SLOW IVP 10 mg Q15MIN PRN Administration SBP >160 and/or DBP >100 Cefazolin Sodium/Dextrose 2 gm 50 mls @ 100 mls/hr 06/29/19 17:00 07/09/19 16 :15 / Device IVPB 50 mls 1700 HOMERO Administration Insulin Glargine 15 units/ 0.15 mls @ 0 mls/hr 07/06/19 21:51 07/09/19 09:04 Miscellaneous Medication SC 0.15 mls QAM HOMERO Administration As Directed Insulin Human Lispro 0 units 06/28/19 06:22 07/01/19 16:16 Humalog SC 2 unit .MODERATE SLIDING SC PRN Administration MODERATE SLIDING SCALE Protocol Lidocaine 1 patch 07/04/19 16:00 07/09/19 16:04 Lidoderm 5% Patch TD 1 patch 1600 HOMERO Administration Magnesium Hydroxide 30 ml 07/08/19 09:00 07/09/19 09:05 Milk Of Magnesium PO 30 ml DAILY HOMERO Administration Metoprolol Tartrate 25 mg 06/27/19 09:00 07/09/19 09:03 Lopressor PO 25 mg BID HOMERO Administration Miscellaneous Medication 1 each 07/05/19 04:00 07/09/19 05:58 Lidocaine Patch Removal TOP 1 each 0400 HOMERO Administration Ondansetron HCl 4 mg 06/26/19 23:07 07/09/19 02:06 Zofran IVP 4 mg Q6H PRN Administration Nausea/Vomiting Polyethylene Glycol 17 gm 06/27/19 09:00 07/09/19 09:02 Miralax PO 17 gm DAILY HOMERO Administration Senna/Docusate Sodium 2 tab 06/29/19 09:00 07/09/19 09:04 Senokot S PO 2 tab BID HOMERO Administration Sertraline HCl 100 mg 06/27/19 21:00 07/08/19 20:41 Zoloft PO 100 mg HS HOMERO Administration Sevelamer Carbonate 1,600 mg 06/27/19 08:00 07/09/19 16:05 Renvela PO 1,600 mg TID-WM HOMERO Administration Simethicone 80 mg 07/07/19 04:53 07/07/19 18:36 Mylicon Chewable PO 80 mg PCHS PRN Administration Gas Pain Timolol Maleate 1 drop 06/27/19 09:00 07/09/19 09:06 Timoptic 0.5% Ophth Soln EA EYE 1 drop BID HOMERO Administration Tizanidine HCl 4 mg 06/26/19 23:07 07/07/19 04:46 Zanaflex PO 4 mg Q8HR PRN Administration Muscle Spasm Hospitalist Results - Labs Result Diagrams: 07/05/19 05:16 07/08/19 05:07 Lab results: WBC 21.3 thou/uL (4.8-10.8) H 07/05/19 05:16 Hgb 9.9 g/dL (12.0-16.0) L 07/05/19 05:16 Hct 33.5 % (36.0-47.0) L 07/05/19 05:16 MCV 97.4 fL (78.0-98.0) 07/05/19 05:16 Plt Count 230 thou/uL (130-400) 07/05/19 05:16 Neutrophils % 85.4 % (42.0-75.0) H 07/01/19 03:15 Band Neuts % (Manual) 2 % (5-11) L 07/05/19 05:16 ESR Westergren 92 mm/hr (Less than 30) 06/27/19 00:24 ABG pH 7.35 (7.35-7.45) 06/28/19 07:53 ABG pCO2 47.6 mmHg (35.0-45.0) H 06/28/19 07:53 ABG pO2 98.8 mmHg (80.0-100.0) 06/28/19 07:53 Sodium 134 mmol/L (136-145) L 07/08/19 05:07 Potassium 4.0 mmol/L (3.5-5.1) 07/08/19 05:07 Chloride 100 mmol/L (98-107) 07/08/19 05:07 Carbon Dioxide 26 mmol/L (22-29) 07/08/19 05:07 BUN 29 mg/dL (9.8-20.1) H 07/08/19 05:07 Creatinine 2.60 mg/dL (0.6-1.1) H 07/08/19 05:07 Glucose 62 mg/dL (70-105) L 07/08/19 05:07 Calcium 8.2 mg/dL (7.8-10.44) 07/08/19 05:07 Total Bilirubin 0.2 mg/dL (0.2-1.2) 06/27/19 00:24 AST 11 U/L (5-34) 06/27/19 00:24 ALT Less than 7 U/L (8-55) L 06/27/19 00:24 Alkaline Phosphatase 105 U/L (40-110) 06/27/19 00:24 C-Reactive Protein 15.66 mg/dL (= or < 0.5) H 06/27/19 00:24 Serum Total Protein 6.0 g/dL (6.0-8.3) 06/27/19 00:24 Albumin 2.8 g/dL (3.5-5.0) L 06/27/19 00:24 Urine Ketones Trace mg/dL (Negative) A 06/27/19 04:00 Urine Blood Large (Negative) A 06/27/19 04:00 Urine Nitrite Negative (Negative) 06/27/19 04:00 Ur Leukocyte Esterase Large (Negative) H 06/27/19 04:00 Urine RBC 21-50 HPF (0-3) A 06/27/19 04:00 Urine WBC Greater than 50 HPF (0-3) A 06/27/19 04:00 Ur Squamous Epith Cells 0-3 HPF (0-3) 06/27/19 04:00 Urine Bacteria 1+ HPF (None Seen) A 06/27/19 04:00
[2019-07-09] MEDS: Atorvastatin Calcium 20 MG TAB PO SCH (20:44)
--- NOTE | 2019-07-10 01:08 | PDOC.HOSPP ---
- Subjective Encounter Date: 07/09/19 Encounter Time: 14:00 Subjective: no overnight events. had additional bowel movement after enema. Today feeling well after dialysis and has no complains. - Objective Vital Signs & Weight: Vital Signs (12 hours) Temp Pulse Resp BP Pulse Ox 07/09/19 23:22 97.6 F 67 16 117/67 96 07/09/19 22:40 66 16 97 07/09/19 20:46 81 07/09/19 20:11 97 07/09/19 19:26 81 16 95 07/09/19 19:14 97.6 F 70 16 110/65 97 07/09/19 16:00 98.4 F 72 18 145/55 H 95 Weight Admit Weight 196 lb 6.91 oz Weight 191 lb 12.8 oz Most Recent Monitor Data Heart Rate from ECG 67 NIBP 153/65 NIBP BP-Mean 94 Respiration from ECG 15 SpO2 100 I&O: 07/08/19 07/09/19 07/10/19 06:59 06:59 06:59 Intake Total 1450 346 9623 Output Total 332 998 3237 Balance 355 275 58 Result Diagrams: 07/05/19 05:16 07/08/19 05:07 Additional Labs: Accuchecks 07/09/19 07/09/19 07/09/19 20:15 17:24 16:05 POC Glucose 82 97 47 L* 07/09/19 07/09/19 11:05 05:43 POC Glucose 98 97 Hospitalist ROS - Review of Systems Constitutional: denies: fever, chills, sweats, weakness, malaise, other Respiratory: denies: cough, dry, shortness of breath, hemoptysis, SOB with excertion, pleuritic pain, sputum, wheezing, other Cardiovascular: denies: chest pain, palpitations, orthopnea, paroxysmal noc. dyspnea, edema, light headedness, other Gastrointestinal: denies: nausea, vomiting, abdominal pain, diarrhea, constipation, melena, hematochezia, other Musculoskeletal: reports: neck pain, back pain Neurological: denies: weakness - Medication Medications: Active Medications Generic Name Dose Route Start Last Admin Trade Name Freq PRN Reason Stop Dose Admin Acetaminophen/Codeine Phosphate 1 tab 07/08/19 17:11 07/08/19 18:30 Tylenol #3 PO 1 tab Q4H PRN Administration Moderate Pain (4-6) Hydrocodone Bitart/Acetaminophen 1 tab 07/08/19 17:12 07/09/19 23:44 [place] 5/325 PO 1 tab Q4H PRN Administration Severe Pain (7-10) Acidophilus 1 gm 06/27/19 09:00 07/09/19 09:03 Floranex PO 1 gm DAILY HOMERO Administration Albuterol/Ipratropium 3 ml 06/28/19 10:30 07/09/19 22:40 Duoneb EZPAP 3 ml [id number] HOMERO Administration Amlodipine Besylate 10 mg 07/02/19 09:00 07/09/19 09:03 Norvasc PO 10 mg DAILY HOMERO Administration Atorvastatin Calcium 20 mg 06/27/19 21:00 07/09/19 20:44 Lipitor PO 20 mg HS HOMERO Administration Bisacodyl 10 mg 07/08/19 09:00 07/09/19 09:05 Dulcolax AL Not Given DAILY [facility] Clonidine 0.1 mg 07/01/19 21:00 07/09/19 20:44 Catapres PO Not Given TID [facility] Enoxaparin Sodium 30 mg 07/01/19 09:00 07/09/19 09:01 Lovenox SC 30 mg 0900 HOMERO Administration Ferrous Sulfate 325 mg 06/27/19 09:00 07/09/19 20:44 Feosol PO 325 mg BID HOMERO Administration Gemfibrozil 600 mg 06/27/19 09:00 07/09/19 09:04 Lopid PO 600 mg DAILY [facility] Administration Guaifenesin 100 mg 07/04/19 03:27 07/04/19 07:52 Robitussin Sf PO 100 mg Q4H PRN Administration Cough Hydralazine HCl 10 mg 06/30/19 06:38 07/01/19 10:41 Apresoline SLOW IVP 10 mg Q15MIN PRN Administration SBP >160 and/or DBP >100 Insulin Glargine 15 units/ 0.15 mls @ 0 mls/hr 07/06/19 21:51 07/09/19 09:04 Miscellaneous Medication SC 0.15 mls QAM HOMERO Administration As Directed Insulin Human Lispro 0 units 06/28/19 06:22 07/01/19 16:16 Humalog SC 2 unit .MODERATE SLIDING SC PRN Administration MODERATE SLIDING SCALE Protocol Lidocaine 1 patch 07/04/19 16:00 07/09/19 16:04 Lidoderm 5% Patch TD 1 patch 1600 HOMERO Administration Magnesium Hydroxide 30 ml 07/08/19 09:00 07/09/19 09:05 Milk Of Magnesium PO 30 ml DAILY [facility]ERO Administration Metoprolol Tartrate 25 mg 06/27/19 09:00 07/09/19 20:45 Lopressor PO Not Given BID [facility] Miscellaneous Medication 1 each 07/05/19 04:00 07/09/19 05:58 Lidocaine Patch Removal TOP 1 each 0400 HOMERO Administration Ondansetron HCl 4 mg 06/26/19 23:07 07/09/19 02:06 Zofran IVP 4 mg Q6H PRN Administration Nausea/Vomiting Polyethylene Glycol 17 gm 06/27/19 09:00 07/09/19 09:02 Miralax PO 17 gm DAILY [facility]OMERO Administration Senna/Docusate Sodium 2 tab 06/29/19 09:00 07/09/19 20:45 Senokot S PO Not Given BID [facility]OMERO Sertraline HCl 100 mg 06/27/19 21:00 07/09/19 20:46 Zoloft PO 100 mg HS HOMERO Administration Sevelamer Carbonate 1,600 mg 06/27/19 08:00 07/09/19 16:05 Renvela PO 1,600 mg TID-WM HOMERO Administration Simethicone 80 mg 07/07/19 04:53 07/07/19 18:36 Mylicon Chewable PO 80 mg PCHS PRN Administration Gas Pain Timolol Maleate 1 drop 06/27/19 09:00 07/09/19 20:46 Timoptic 0.5% Ophth Soln EA EYE 1 drop BID HOMERO Administration Tizanidine HCl 4 mg 06/26/19 23:07 07/07/19 04:46 Zanaflex PO 4 mg Q8HR PRN Administration Muscle Spasm - Exam General Appearance: NAD, awake alert Heart: RRR, no murmur, no gallops, no rubs Respiratory: CTAB, no wheezes, no rales, no tachypnea Gastrointestinal: soft, non-tender, non-distended, normal bowel sounds Extremities: 1+ LE edema Neurological: cranial nerve grossly intact Psychiatric: normal affect, normal behavior, A&O x 3 Hosp A/P - Plan (1) Cervical discitis Code(s): M46.42 - DISCITIS, UNSPECIFIED, CERVICAL REGION Status: Acute (2) Osteomyelitis Code(s): M86.9 - OSTEOMYELITIS, UNSPECIFIED Status: Acute Qualifiers: Osteomyelitis type: unspecified type Osteomyelitis location: other site Qualified Code(s): M86.9 - Osteomyelitis, unspecified Constipation -despite multiple laxatives onboard (3) DM2 (diabetes mellitus, type 2) Status: Chronic Qualifiers: Diabetes mellitus shelter insulin use: with shelter use Diabetes mellitus complication status: with kidney complications Diabetes mellitus complication detail: with chronic kidney disease Chronic kidney disease stage : on chronic dialysis Qualified Code(s): E11.22 - Type 2 diabetes mellitus with diabetic chronic kidney disease; N18.6 - End stage renal disease; Z79.4 - USP (current) use of insulin; Z99.2 - Dependence on renal dialysis (4) Dyslipidemia Code(s): E78.5 - HYPERLIPIDEMIA, UNSPECIFIED Status: Chronic (5) ESRD on hemodialysis Code(s): N18.6 - END STAGE RENAL DISEASE; Z99.2 - DEPENDENCE ON RENAL DIALYSIS Status: Chronic - Plan -cleared by NSG for discharge; pending placement -for constipation, will monitor; if continues to have constipation, will stop all other laxatives for trial of mathylnaltrexone;
[2019-07-10] MEDS: Lidocaine Patch Removal 1 EACH TOP SCH (04:42)
[2019-07-10] MEDS ORDERED: Famotidine 20 MG TAB PO SCH (09:00)
--- NOTE | 2019-07-10 09:12 | PRG ---
DATE OF SERVICE: 07/10/2019 SUBJECTIVE: Patient was seen and examined at bedside and overnight events noted. Patient denies any shortness of breath or chest pain or palpitation. No history of nausea or vomiting or diarrhea or fever or chills or cramps. OBJECTIVE: GENERAL: This is an obese female, in no apparent distress. VITAL SIGNS: Temperature 96. Heart rate 92. Respiratory rate 12. Blood pressure 127/75. HEENT: Atraumatic, normocephalic. Oral mucosa is moist NECK: Supple. CARDIOVASCULAR: S1, S2 heard. Rate and rhythm regular. RESPIRATORY: Clear to auscultation. GASTROINTESTINAL: Abdomen is soft. MUSCULOSKELETAL: No tenderness. No edema. DERMATOLOGIC: No skin rash. NEUROLOGIC: Alert and awake and oriented X3. No focal neurologic deficits. Moving all the extremities. PSYCHIATRIC: Mood and affect normal. LABORATORY DATA: Not done today. ASSESSMENT AND PLAN: 1. End-stage renal disease, currently on hemodialysis, Saturday, , and Saturday as tolerated. 2. Edema, we will remove fluid dialysis as tolerated. 3. Hypertension. 4. Anemia of chronic disease. Monitor hemoglobin. 5. We will recheck labs in the morning. Job ID: [id number]
[2019-07-10] MEDS: cloNIDine 0.1 MG TAB PO SCH ×2 (09:17→13:55)
[2019-07-10] MEDS: Polyethylene Glycol 3350 17 GM Packet PO SCH (09:17)
[2019-07-10] MEDS: Milk Of Magnesia 30 ML UDCUP PO SCH (09:17)
[2019-07-10] MEDS: Sevelamer Carbonate 800 MG TAB PO SCH ×2 (09:17→13:55)
[2019-07-10] MEDS: Floranex Packet PO SCH (09:18)
[2019-07-10] MEDS: Senokot S 8.6-50 MG TAB PO SCH (09:18)
[2019-07-10] MEDS: Metoprolol Tartrate 25 MG TAB PO SCH (09:19)
[2019-07-10] MEDS: Amlodipine 10 MG TAB PO SCH (09:19)
[2019-07-10] MEDS: Gemfibrozil 600 MG TAB PO SCH (09:19)
[2019-07-10] MEDS: HYDROcodone/Acetaminophen 5/325 mg Tablet PO PRN ×2 (09:19→13:56)
[2019-07-10] MEDS: Enoxaparin Sodium 30 MG/0.3 ML SYRINGE SC SCH (09:20)
[2019-07-10] MEDS: Timolol 0.5% Ophth Soln 5 ml Bottle EA EYE SCH (09:20)
[2019-07-10] MEDS: Bisacodyl 10 MG SUPP PR SCH (09:21)
[2019-07-10] MEDS: Ferrous Sulfate 325 MG TAB PO SCH (09:21)
[2019-07-10] MEDS: Insulin Glargine 15 UNITS in Pre-Filled Syringe 1 EACH SC SCH (09:21)
[2019-07-10 11:39] VITALS: BP 127/76; TEMP 99.2
[2019-07-10] MEDS: Lidocaine 5% Patch TD SCH (13:55)
[2019-07-10] MEDS ORDERED: CEFAZOLIN 2 GM in Premix Bag 1 BAG IVPB SCH (17:00)
--- NOTE | 2019-07-12 03:16 | DIS ---
DATE OF ADMISSION: 06/27/2019 DATE OF DISCHARGE: 07/10/2019 HOSPITAL COURSE: Ms. Bright is a 59-year-old female with medical history of cervical and thoracic osteomyelitis with diskitis with recent hospital admission, was found to have methicillin-sensitive Staphylococcus aureus bacteremia and contraction without osteomyelitis in the cervical and thoracic spine. She was treated with antibiotics into a group home facility, but was felt to have increasing lower extremity weakness, ataxic gait, and concern for worsening of her osteomyelitis with cord compression, so she came to the ED. In the ED, she was found to have cervical cord compression. General Surgery was consulted and anterior cervical diskectomy was performed as well as thoracic T7-T9 laminectomies, partial facetectomies and decompression, and hardware placement. Following the procedure, the patient gradually improved in terms of sensation and strength. However, she did suffer from severe constipation, most likely due to her pain medication. She had to have three enemas and noted to have a bowel movement and her pain medication was reduced based on neurosurgical recommendation in order to facilitate bowel movements. Infectious Disease was also consulted regarding antibiotic treatment and the patient was continued on treatment with Ancef. Per Neurosurgery, the patient will require lifelong treatment considering placement of hardware. She will be discharged to her nursing facility with the daily dose of Ancef per Infectious Disease. Prior to discharge, the facility was contacted regarding administration of antibiotic and it was confirmed that the facility can administer antibiotics through the patient's port. She was hemodynamically stable on discharge and vitals were unremarkable. PHYSICAL EXAMINATION: GENERAL APPEARANCE: No apparent distress. Awake and alert. Morbidly obese. HEART: Regular rate and rhythm. No murmurs. No gallops. No rubs. RESPIRATORY: Clear to auscultation bilaterally. No wheezes. No rales. No tachypnea. GASTROINTESTINAL: Soft, nontender, nondistended. Normal bowel sounds. EXTREMITIES: Mild bilateral pitting edema up to knee level improved compared to the day of admission. NEUROLOGIC: Cranial nerves grossly intact. PSYCHIATRIC: Normal affect. Normal behavior. Alert and oriented x3. ASSESSMENT AND PLAN: Ms. Bright is a 59-year-old female, who presented with cervical disk compression due to cervical diskitis and osteomyelitis. The patient underwent decompression with hardware placement and was continued on her Ancef antibiotic. She also suffers from severe constipation and required enemas as reduction of her pain medication. She was discharged to a intermediate with detailed instructions regarding her comorbidities and how to manage them. Job ID: [id number]
--- NOTE | 2019-07-12 22:55 | PQF ---
[employer] Grey Washer Crystal Reports Winform ViewerALVARADO,ZONIA GONZALEZ, PEDRO [id number] CLINICAL DOCUMENTATION CLARIFICATION FORM: POST DISCHARGE Addendum to original discharge summary date: ____ Late entry note date: __ DATE: 07/12/2019 ATTN: PEDRO COLLIER Please exercise your independent, professional judgment in responding to the clarification form. Clinical indicators are provided on the bottom of this form for your review Please check appropriate box(es): [ ] Sepsis due to Diskitis and Osteomyelitis [ ] Sepsis due to UTI [ ] Severe sepsis with acute organ dysfunction of: (Examples: respiratory failure, encephalopathy, acute kidney failure, other) [ ] Septic Shock [ x ] Localized infection without sepsis [ ] Other diagnosis [ ] Unable to determine In addition, please specify: Present on Admission (POA): [ x ] Yes [ ] No [ ] Unable to determine For continuity of documentation, please document condition throughout progress notes and discharge summary. Thank You. CLINICAL INDICATORS - SIGNS / SYMPTOMS / LABS Vital Signs 06/27 BP 103/51, Resp 22, Pulse 78, Temp 97.2 Labs WBC: 06/27=13.2 06/28=29.1 06/29=26.2 06/30=23.9 07/01=18.2 07/03=21.3 =21.3 Cervical tissue culture 06/27 No growth Urine Culture 06/27 Vanc-resistant Enterococcus, Presumptive Antonella Albicans H&P p1 06/27 Dr Duncan significant history of cervical and thoracic osteomyelitis with diskitis With recent hospital admission from 04/14/2019 through [id number]. The patient was noted with a methicillin sensitive Staphylococcus aureus bacteremia in conjunction with osteomyelitis of the cervical and thoracic spine. H&P p1 06/27 Dr Duncan The patient was noted with increasing lower extremity weakness, ataxic gait, and concern for worsening of her osteomyelitis with cord compression. H&P p1 06/27 Dr Duncan undergoing MRI and CT of the lumbar, thoracic, and cervical spine. The patient was noted with progression of the osteomyelitis of the cervical and thoracic spine with severe cord compression at T7 and T8. PN p1 06/27 Dr Cummings She has demonstrated in her urine that she has growth of vancomycin-resistant Enterococcus and Staphylococcus aureus RISK FACTORS H&P p1 06/27 DM type 2 H&P p1 06/27 ESRD on Dialysis H&P p4 06/27 Osteomyelitis/Diskitis with myelopathy/radiculopathy from Cervical and Thoracic Spine H&P p4 06/27 Urinary tract infection H&P p4 06/27 Hypertension PN p1 06/30 s/p Respiratory failure ED Notes p2 06/27 Former Smoker Consult 06/27-Obesity TREATMENTS: AUG 01 IV Vancomycin 1gm AUG 01 IV Sodium Chloride 1L AUG 01 Decadron 10mg AUG 01 IV ceftriaxone 1gm AUG 01 IV Cefazolin 3gm Respiratory panel 06/27 On Mechanical Ventilator Operative report 06/27 Anterior Cervical Fusion by Dr Cummings Operative report 06/[address] Cummings PN pg 06/27 Urine Culture DS pg 1 07/10 Infectious Disease Consult AUG 01 - IVF (This form is maintained as a part of the permanent medical record) 2014 [employer] All Rights Reserved [email or web address]
--- NOTE | 2019-07-12 22:57 | PQF ---
SAP Mat Inspector Crystal Reports Winform ViewerALVARADO,ZONIA GONZALEZ, PEDRO [id number] U-[id number] CLINICAL DOCUMENTATION CLARIFICATION FORM: POST DISCHARGE Addendum to original discharge summary date: ____ Late entry note date: __ DATE:07/12/2019 ATTN: Pedro Portillo Please exercise your independent, professional judgment in responding to the clarification form. Clinical indicators are provided on the bottom of this form for your review Please check appropriate box(s): [ x ] Acute Respiratory Failure: [ x ] with Hypoxia[ ] with Hypercapnia [ ] Acute On Chronic Respiratory Failure: [ ] with Hypoxia [ ] with Hypercapnia [ ] Acute Respiratory Failure due to: (etiology) [ ] ARDS (Acute Respiratory Distress Syndrome) [ ] Chronic Respiratory Failure only [ ] with Hypoxia [ ] with Hypercapnia [ ] Hypoxia [ ] Other diagnosis [ ] Unable to determine In addition, please specify: Present on Admission (POA): [x ] Yes [ ] No [ ] Unable to determine For continuity of documentation, please document condition throughout progress notes and discharge summary. Thank You. CLINICAL INDICATORS - SIGNS / SYMPTOMS / LABS PN p1 06/30 Dr Kirby s/p respiratory failure, on mechanical ventilator ABG 06/27 pH 7.47, pcO2 31.4, pO2 167.6, O2 sat zuri/alphonso 99.3, U2lyemgnt 16.8, hct 35.0, hgb 11.9 ABG 06/27 pH 7.35, pcO2 47.6, pO2 98.8 O2 sat zuri/alphonso 97.7, O2 content 15.7, hct 34.0, hgb 11.5 Vital Signs 06/27 BP 103/51, Resp 22, Pulse 78, Temp 97.2 Pulmonary service consult p2 06/27 Dr Kirby The patient understands she may be left intubated after surgery depending on what they find in the length of surgery RISK FACTORS H&P p4 06/27 Osteomyelitis/Diskitis with myelopathy/radiculopathy from Cervical and Thoracic Spine H&P p4 06/27 ESRD on Dialysis Operative report 06/27 Anterior Cervical and Thoracic Fusion ED Notes p2 06/27 Former Smoker Consult p2 06/27-Obesity TREATMENTS: Respiratory panel 06/27 On Mechanical Ventilator Pulmonology Consult 06/27 Rolando Michel Ordered 06/27 Repeat ABG by Emiliano JOHN 06/27 Decadron 10mg PN p1 06/30 Transferred to [facility] PN p1 07/09 - Dialysis (This form is maintained as a part of the permanent medical record) 2014 [employer]. All Rights Reserved [email or web address]
== END 2019-07-10 14:10 | DRG 453 ==
LOC: ERS 21:07 → CCU 06-27 02:08 → SJJU 07-01 13:35
PROVIDERS: ADMIT Family Medicine; ATTEND Emergency Medicine
PROC: 0RG2070 Fusion of 2 or more Cervical Vertebral Joints with Autologous Tissue Substitute, Anterior Approach, Anterior Column, Open Approach (ICD-10-PCS; principal; 2019-06-27)
PROC: 0RG7071 Fusion of 2 to 7 Thoracic Vertebral Joints with Autologous Tissue Substitute, Posterior Approach, Posterior Column, Open Approach (ICD-10-PCS; 2019-06-27)
PROC: 0RB30ZZ Excision of Cervical Vertebral Disc, Open Approach (ICD-10-PCS; 2019-06-27)
PROC: 0RB90ZZ Excision of Thoracic Vertebral Disc, Open Approach (ICD-10-PCS; 2019-06-27)
PROC: 00NX0ZZ Release Thoracic Spinal Cord, Open Approach (ICD-10-PCS; 2019-06-27)
PROC: 5A1D70Z Performance of Urinary Filtration, Intermittent, Less than 6 Hours Per Day (ICD-10-PCS; 2019-06-27)
DX: M46.42 Discitis, unspecified, cervical region (principal); N18.6 End stage renal disease; J96.01 Acute respiratory failure with hypoxia; M46.22 Osteomyelitis of vertebra, cervical region; G99.2 Myelopathy in diseases classified elsewhere; N39.0 Urinary tract infection, site not specified; E87.1 Hypo-osmolality and hyponatremia; Z16.21 Resistance to vancomycin; G82.20 Paraplegia, unspecified; E11.69 Type 2 diabetes mellitus with other specified complication; I25.10 Atherosclerotic heart disease of native coronary artery without angina pectoris; E78.5 Hyperlipidemia, unspecified; E11.22 Type 2 diabetes mellitus with diabetic chronic kidney disease; M48.04 Spinal stenosis, thoracic region; M48.02 Spinal stenosis, cervical region; M46.44 Discitis, unspecified, thoracic region; G47.33 Obstructive sleep apnea (adult) (pediatric); H54.40 Blindness, one eye, unspecified eye; D63.1 Anemia in chronic kidney disease; B95.2 Enterococcus as the cause of diseases classified elsewhere; E11.65 Type 2 diabetes mellitus with hyperglycemia; K59.00 Constipation, unspecified; Z95.5 Presence of coronary angioplasty implant and graft; Z87.891 Personal history of nicotine dependence; Z99.2 Dependence on renal dialysis; Z79.82 Long term (current) use of aspirin; Z89.421 Acquired absence of other right toe(s)
CPT/HCPCS: 36415; 36416; 72125; 72128; 74018; 76000; 80048; 80053; 81001; 82805; 83735; 85025; 85610; 85652; 85730; 86140; 86850; 86900; 86901; 87070; 87077; 87086; 87186; 87205; 90935; 93970; 94002; 94003; 94640; 96374; 96375; C1713; C1768; C1776; G0257; J0360; J0690; J0696; J1100; J1644; J1650; J1815; J2001; J2020; J2060; J2270; J2405; J2704; J3010; J3370; J3490; J7620; L0172; P9045; P9047

== ENCOUNTER 2019-08-01 07:13 | Inpatient (IN) | payer MEDICARE, MEDICAID ==
[2019-08-01 08:57] LABS: #Eosinphils 0.1 thou/uL (0.0-0.7); #Lymphocytes 1.8 thou/uL (1.20-3.40); #Monocytes 1.2 thou/uL (0.11-0.59); #Neutrophils 10.5 thou/uL (1.40-6.50); %Basophils 0.3 % (0.0-1.0); %Eosinophils 0.5 % (0.0-10.0); %Lymphocytes 13.4 % (21.0-51.0); %Neutrophils 76.9 % (42.0-75.0); Hemoglobin 8.5 g/dL (12.0-16.0); Mean Corpuscular HGB CONC 33.1 g/dL (32.0-36.0); Mean Corpuscular Hemoglobin 31.4 pg (27.0-31.0); Mean Corpuscular Volume 94.9 fL (78.0-98.0); Mean Platelet Volume 6.8 fL (7.4-10.4); Platelet Count 355 thou/uL (130-400); RBC Distribution Width 16.2 % (11.5-14.5); Red Blood Cell (RBC) Count 2.72 mill/uL (4.20-5.40); White Blood Cell (WBC) Count 13.7 thou/uL (4.8-10.8)
[2019-08-01 09:07] LABS: INR-International Normal Ratio 1.7; PTT 43.4 SEC (22.9-36.1); Prothrombin Time 19.9 SEC (12.0-14.7)
[2019-08-01] MEDS ORDERED: Bupivacaine 0.25% 10 ML VIAL ONE (09:09)
[2019-08-01 09:22] LABS: ALT (SGPT) Less than 7 U/L (8-55); AST (SGOT) 12 U/L (5-34); Albumin 2.1 g/dL (3.5-5.0); Alkaline Phosphatase 117 U/L (40-110); Anion Gap 14 mmol/L (10-20); BUN (Urea Nitrogen) 19 mg/dL (9.8-20.1); Bilirubin, Total 0.2 mg/dL (0.2-1.2); Calc. Creatinine Clearance 0 mL/min (70-130); Calcium 7.9 mg/dL (7.8-10.44); Carbon Dioxide 27 mmol/L (22-29); Chloride 98 mmol/L (98-107); Estimated GFR-MDRD 26; Globulin 2.8 g/dL (2.4-3.5); Glucose 99 mg/dL (70-105); Protein, Total 4.9 g/dL (6.0-8.3); Sodium 136 mmol/L (136-145)
[2019-08-01 09:29] LABS: Potassium 2.9 mmol/L (3.5-5.1)
[2019-08-01] MEDS ORDERED: Lidocaine 1% (PF) 30 ML VIAL ONE (09:44)
[2019-08-01] MEDS ORDERED: Pantoprazole 80 MG in Sodium Chloride 0.9% 100 ML IVP SCH (09:45)
[2019-08-01] MEDS ORDERED: Octreotide Acetate 50 MCG/ML AMP SLOW IVP SCH (09:45)
[2019-08-01] MEDS ORDERED: Octreotide Acetate 1,250 MCG in Sodium Chloride 0.9% 250 ML 250 ML IVPB SCH (09:45)
--- NOTE | 2019-08-01 09:59 | CT ---
CT ABDOMEN AND PELVIS WITHOUT IV CONTRAST: Date: 08/01/2019 INDICATION: Abdominal pain. Rectal bleeding. Comparison made to CT abdomen and pelvis dated 04/26/2019. FINDINGS: Lung bases shows posterior stranding without focal infiltrate or effusion. Liver, spleen, and pancreas are unremarkable given the limitations of a noncontrast study. Gallbladd er is mildly distended. Bowel loops appear normal. Kidneys are mildly atrophic. There are calculi within the renal arteries. No definite renal calculus identified. No hydronephrosis. Urinary bladder is distended. Aorta is calcified. Prominent stool throughout the colon suggests constipation. There is mural thickening and haziness surrounding the wall of the rectum which could represent colit is or proctitis. Recommend direct evaluation. There is also prominent stool in the rectosigmoid sugge sting constipation or impaction. Uterus deviated to the right and stable. Postoperative change with pedicle screws in the lower thoracic spine. IMPRESSION: Prominent stool in the colon and rectum. Mural thickening and mild inflammatory haziness surrounding the rectum and rectosigmoid region could represent focal colitis. POS: IDNO
[2019-08-01] MEDS ORDERED: Octreotide Acetate 100 MCG/ML VIAL ONE (10:11)
[2019-08-01] MEDS ORDERED: Pantoprazole 40 MG VIAL ONE ×2 (10:11→10:15)
[2019-08-01] MEDS ORDERED: Morphine 4 MG/ML VIAL ONE (10:12)
[2019-08-01] MEDS ORDERED: Potassium Chloride 20 MEQ in Premix Bag 1 BAG IVPB SCH (11:00)
[2019-08-01] MEDS ORDERED: Potassium Chloride 20 MEQ TAB ONE (11:33)
[2019-08-01] MEDS ORDERED: Potassium Chloride 40 MEQ in Sodium Chloride 0.9% 250 ML 250 ML IVPB SCH (12:00)
[2019-08-01 14:57] VITALS: BMI 35.5
[2019-08-01] MEDS ORDERED: Bisacodyl 5 MG TAB PO PRN (16:41)
[2019-08-01] MEDS ORDERED: Nitroglycerin 0.4 MG TAB (25 Tab Bottle) SL PRN (16:45)
[2019-08-01] MEDS ORDERED: Senokot S 8.6-50 MG TAB PO PRN (16:45)
[2019-08-01] MEDS ORDERED: HumaLOG 300 UNITS/3 ML VIAL SC PRN (17:01)
[2019-08-01] MEDS ORDERED: Dextrose 50% Abboject 50 ML SYRINGE SLOW IVP PRN (17:01)
[2019-08-01] MEDS ORDERED: Dextrose 5% in Water 1,000 ML IV PRN (17:01)
[2019-08-01] MEDS ORDERED: Amlodipine 10 MG TAB PO SCH (17:30)
[2019-08-01 17:40] LABS: Potassium 5.5 mmol/L (3.5-5.1)
[2019-08-01] MEDS: Acetaminophen/Codeine 30-300mg Tablet PO PRN ×2 (17:58→21:56)
[2019-08-01] MEDS: Lidocaine-Prilocaine 2.5% Cream 5 GM TUBE TOP SCH (17:59)
[2019-08-01] MEDS ORDERED: Dextrose 50% Abboject 50 ML SYRINGE SLOW IVP SCH (18:15)
[2019-08-01] MEDS ORDERED: Insulin Regular 300 UNITS/3 ML VIAL IVP SCH (18:15)
[2019-08-01] MEDS ORDERED: Sterile Water 10 ML VIAL FS PRN (18:24)
[2019-08-01] MEDS: CEFAZOLIN 1 GM VIAL SLOW IVP SCH (18:44)
[2019-08-01 18:47] LABS: PTT 55.3 SEC (22.9-36.1); Prothrombin Time 22.3 SEC (12.0-14.7)
[2019-08-01 18:55] LABS: Troponin I 0.025 ng/mL (< 0.028)
[2019-08-01] MEDS ORDERED: cloNIDine 0.1 MG TAB PO SCH (21:00)
[2019-08-01] MEDS ORDERED: Metoprolol Tartrate 50 MG TAB PO SCH (21:00)
--- NOTE | 2019-08-01 21:04 | PDOC.HHP ---
Hospitalist HPI - History of Present Illness rectal bleeding History of Present Illness: 59yo F w/ MHx of vertebral osteomyelitis s/p hardware placement and lifelong antibiotics, chronic pain (on opioids), iron deficiency anemia (on ferrous sulfate) and constipation presents for rectal bleed. Per patient, has been having multiple episodes of loose very small volume bowel movements over the past week at [facility], require some straining on defecation. During the past few days, noticed some bright red blood while having bowel movements, and reportedly had low hemoglobin level at dialysis requiring blood transusion, so was brought to the ED On encounter, lying in bed and appears to be in distress due to rectal pain. Also complains of squeezing chest pain that started minutes ago. Has no other complaints. ED Course: In the ED, found to have black fecal material in her briefs, and potassium found to be low so supplemented. She was admitted to the floor for workup of GI bleeding. Hospitalist ROS - Review of Systems Constitutional: reports: weakness, malaise. denies: fever, chills, sweats Respiratory: denies: cough, shortness of breath, hemoptysis, SOB with excertion , pleuritic pain, sputum Cardiovascular: reports: chest pain, edema. denies: palpitations, orthopnea, paroxysmal noc. dyspnea, light headedness Gastrointestinal: reports: abdominal pain, diarrhea (multiple small loose bowel movements per day), hematochezia. denies: nausea, vomiting, constipation Genitourinary: reports: retention. denies: dysuria, frequency, incontinence, hematuria Musculoskeletal: denies: shoulder pain, back pain, leg pain - Medication Medications: Active Medications Generic Name Dose Route Start Last Admin Trade Name Freq PRN Reason Stop Dose Admin Acetaminophen/Codeine Phosphate 2 tab 08/01/19 16:55 08/01/19 17:58 Tylenol #3 PO 2 tab Q4H PRN Administration Pain Cefazolin Sodium 1 gm 08/01/19 17:00 08/01/19 18:44 Ancef SLOW IVP 1 gm Q24HR HOMERO Administration Lidocaine/Prilocaine 0 gm 08/01/19 17:00 08/01/19 17:59 Emla 2.5% TOP 1 applic 0500,1700 HOMERO Administration Sterile Water 0 ml 08/01/19 18:24 08/01/19 18:43 Water For Injection FS 2.5 ml PRN PRN Administration RECONSTITUTION Hospitalist History - Past Medical History Source: patient, family, old records (PAST MEDICAL HISTORY: 1. Cervical and thoracic osteomyelitis/diskitis. 2. Myelopathy/radiculopathy secondary to #1. 3. Severe spinal cord central canal stenosis at T7-T8 level. 4. Diabetes mellitus type 2. 5. Obstructive sleep apnea. 6. Dyslipidemia. 7. Coronary artery disease. 8. History of endocarditis. 9. End-stage renal disease with hemodialysis. 10. Cataracts. 11. Right eye blindness. PAST SURGICAL HISTORY: 1. Status post dialysis access revision. 2. 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 3. Status post appendectomy. 4. Status post bilateral cataract removal. 5. Status post right ankle repair. CURRENT MEDICATIONS: 1. Amlodipine 5 mg p.o. daily. 2. Lipitor 20 mg p.o. at bedtime. 3. Ferric citrate 210 mg p.o. daily. 4. Gemfibrozil 600 mg p.o. daily. 5. Humalog t.i.d. with meals. 6. Lopressor 25 mg p.o. b.i.d. 7. Zoloft 100 mg p.o. at bedtime. 8. Vancomycin 750 mg with hemodialysis Saturday, Saturday, and Saturday. 9. Aspirin 81 mg p.o. daily. 10. Clonidine 0.1 mg p.o. b.i.d. 11. Nitroglycerin 0.4 mg sublingually q.5 minutes chest pain. 12. MiraLAX 17 g p.o. daily. ALLERGIES: NO KNOWN DRUG ALLERGIES. FAMILY HISTORY: Father after complications of a motor vehicle accident. Mother with diabetes mellitus. SOCIAL HISTORY: Resides in the [facility]. Accompanied by her son in the hospital. No current alcohol, tobacco, or illicit drug use. Nonambulatory due to thoracic spinal cord compression.) - Exam General Appearance: awake alert, ill appearing General - other findings: in apparent distress due to rectal pain ENT: normocephalic atraumatic, moist mucosa Neck: no JVD Neck - other findings: neck collar in place Heart: RRR, diminshed peripheral pulses, murmur present Respiratory: CTAB, no wheezes, no rales, no ronchi, normal chest expansion, no tachypnea Gastrointestinal: soft, non-distended, tender to palpation (rectal exam - severe tenderness on palpation; fecal material appears bright brown, sent for FOBT; rigid nodule gently palpated however limited field of view due to severe tenderness while attempting to reposition) Gastrointestinal - other findings: reduced bowel sounds; moderate tenderness mostly LUQ; Extremities: no edema Neurological: no new deficit. negative: facial droop, speech deficit Psychiatric: normal affect, normal behavior, A&O x 3 Hospitalist Results - Labs Result Diagrams: 08/01/19 08:51 08/01/19 17:22 Lab results: WBC 13.7 thou/uL (4.8-10.8) H 08/01/19 08:51 Hgb 8.5 g/dL (12.0-16.0) L 08/01/19 08:51 Hct 25.8 % (36.0-47.0) L 08/01/19 08:51 MCV 94.9 fL (78.0-98.0) 08/01/19 08:51 Plt Count 355 thou/uL (130-400) 08/01/19 08:51 Neutrophils % 76.9 % (42.0-75.0) H 08/01/19 08:51 Sodium 136 mmol/L (136-145) 08/01/19 08:51 Potassium 5.5 mmol/L (3.5-5.1) H 08/01/19 17:22 Chloride 98 mmol/L (98-107) 08/01/19 08:51 Carbon Dioxide 27 mmol/L (22-29) 08/01/19 08:51 BUN 19 mg/dL (9.8-20.1) 08/01/19 08:51 Creatinine 2.00 mg/dL (0.6-1.1) H 08/01/19 08:51 Glucose 99 mg/dL (70-105) 08/01/19 08:51 Calcium 7.9 mg/dL (7.8-10.44) 08/01/19 08:51 Total Bilirubin 0.2 mg/dL (0.2-1.2) 08/01/19 08:51 AST 12 U/L (5-34) 08/01/19 08:51 ALT Less than 7 U/L (8-55) L 08/01/19 08:51 Alkaline Phosphatase 117 U/L (40-110) H 08/01/19 08:51 Troponin I 0.025 ng/mL (< 0.028) 08/01/19 18:17 Serum Total Protein 4.9 g/dL (6.0-8.3) L 08/01/19 08:51 Albumin 2.1 g/dL (3.5-5.0) L 08/01/19 08:51 Hospitalist H&P A/P - Problem (1) Rectal bleeding Code(s): K62.5 - HEMORRHAGE OF ANUS AND RECTUM Status: Acute (2) Colitis Code(s): K52.9 - NONINFECTIVE GASTROENTERITIS AND COLITIS, UNSPECIFIED Status : Acute (3) Coagulopathy Status: Acute (4) Cervical discitis Code(s): M46.42 - DISCITIS, UNSPECIFIED, CERVICAL REGION Status: Acute (5) Diabetes mellitus type 2 with peripheral artery disease Code(s): E11.51 - TYPE 2 DIABETES W DIABETIC PERIPHERAL ANGIOPATH W/O GANGRENE Status: Chronic (6) ESRD on hemodialysis Code(s): N18.6 - END STAGE RENAL DISEASE; Z99.2 - DEPENDENCE ON RENAL DIALYSIS Status: Chronic - Plan Plan: * rectal bleeding * vital signs not c/w significant acute blood loss * HgB ~ 8.5 and stable; will need to confirm concierge receptionist of PRBC at dialysis * recent colonoscopy relatively benign * rectal exam limited due to severe tenderness * likely due to external hemorrhoids/fissure * * pantoprazole 40mg IVP q12h * monitor H&H * lidocaine PA for hemorrhoids * GI consulted * constipation * colitis * on chronic opioid treatment s/p cervical and thoracic spinal surgery * CT abdomen c/w fecal stasis and impaction; colitis likely stercoral colitis * * will provide topical pain medication and systemic pain medication, then attempt disimpaction * after disimpaction, will start bowel regimen * will require modification of bowel regimen prior to discharge considering prolonged constipation that wasn't alleviated with bowel regimen on discharge * coagulopathy * PT and PTT elevated * albumin 2.1 * AST and ALT normal * likely reduced clotting factor synthesis due to protein malnutrition or vitamin K deficiency, though cefazolin not broad spectrum and shouldn't affect intestinal bacteria as significantly as second and third generation cephalo, there have been reported cases of cefazolin induced vitamin-k deficiency * * supplement vitamin K * repeat PT and PTT * if resolves, will consider changing antibiotic * cervial discitis and osteomyelitis s/p decompression and hardware placement * c-collar in place * * will continue cefazolin for now pending workup of coagulopathy * T2DM * sliding scale * ESRD * nephrology consulted * received insulin and dextrose after overcorrrection of hypokalemia * * Disposition/PPx full code GI PPx : on pantoprazole for GI bleed DVT PPx: SCDs expected length of stay: 3 midnights
[2019-08-01] MEDS ORDERED: GoLYTELY 4,000 ml Bottle PO SCH (21:30)
[2019-08-01] MEDS ORDERED: Phytonadione 10 MG/ML AMP PO SCH (21:45)
[2019-08-01] MEDS: Metoprolol Tartrate 25 MG TAB PO SCH (21:54)
[2019-08-01] MEDS: Senokot S 8.6-50 MG TAB PO SCH (21:54)
[2019-08-01] MEDS: Atorvastatin Calcium 20 MG TAB PO SCH (21:55)
[2019-08-01] MEDS: cloNIDine 0.1 MG TAB PO SCH (21:56)
[2019-08-01] MEDS: Pantoprazole 40 MG VIAL IVP SCH (21:57)
[2019-08-01] MEDS ORDERED: NITROGLYCERIN TOP SCH (22:15)
[2019-08-01] MEDS ORDERED: AQUAPHOR TOP SCH (22:15)
[2019-08-01] MEDS ORDERED: Temazepam 15 MG CAP PO PRN (23:36)
--- NOTE | 2019-08-01 23:47 | CON ---
DATE OF CONSULTATION: 08/01/2019 CHIEF COMPLAINT: Blood in the stool. HISTORY OF PRESENT ILLNESS: Ms. Bright is a 59-year-old woman, who was hospitalized from 06/26/2019 to 07/10/2019 with complications related to osteomyelitis and diskitis in her cervical and thoracic spine. She had an anterior cervical diskectomy and laminectomies. She was discharged to rehab. She reports over the last couple of weeks, she has been having diarrhea with multiple watery stools per day. Today, she had increased amount of red bloody stool and was sent to the emergency room. She has had rectal pain and abdominal pain with this. She had a noncontrast CT scan that showed large amount of stool throughout the colon and rectum with some thickening or inflammatory changes around the rectum. She had a contrast-enhanced abdominal CT back in April of 2019, that did not show any significant abdominal process. She had colonoscopy back in September of 2018, that just revealed a couple of small adenomas. She complains of rectal pain and lower abdominal pain. She has had no nausea or vomiting. She has multiple liquidy stools per day. PAST MEDICAL HISTORY: Cervical and thoracic diskitis and osteomyelitis, morbid obesity, diabetes mellitus, obstructive sleep apnea, hyperlipidemia, coronary artery disease, end-stage renal disease on hemodialysis, history of endocarditis. PAST SURGICAL HISTORY: Cataract surgery, dialysis access, toe amputation, appendectomy, ankle surgery. FAMILY HISTORY: Negative for GI malignancies. SOCIAL HISTORY: No alcohol, tobacco, or drugs. ALLERGIES: NO KNOWN DRUG ALLERGIES. INPATIENT MEDICATIONS: Currently, 1. Tylenol No. 3 as needed. 2. Norvasc. 3. Aspirin. 4. Atorvastatin. 5. Cefazolin. 6. Clonidine. 7. Metoprolol. 8. Pantoprazole. REVIEW OF SYSTEMS: Otherwise negative x10 systems reviewed, however, this is limited by the patient's mental status. PHYSICAL EXAMINATION: VITAL SIGNS: Temperature is 98.5, pulse 90, blood pressure 119/74. GENERAL: She will answer some questions appropriately, but seems to have some underlying confusion. HEENT: Her eyes have no scleral icterus. Oropharynx is clear without lesions. No cervical or supraclavicular lymphadenopathy. LUNGS: Clear to auscultation bilaterally. HEART: Regular rate and rhythm without murmur. ABDOMEN: Soft. She reports tenderness in lower abdomen, but there is no guarding at all. Bowel sounds are active. EXTREMITIES: Have no lower extremity edema. She has no asterixis on neurological exam. Rectal exam reveals marked tenderness around the anal area with what appears to be an anterior fissure, however, the lighting suboptimal. She has a fecal impaction. I performed a disimpaction with lidocaine ointment and lubricating jelly and removed hard stool from the rectal vault. She passed dark red blood with disimpaction. She had marked tenderness of the anal and rectal area with disimpaction. LABORATORY DATA: White blood cell count 13.7, hemoglobin 8.5, platelets 355. INR 2.0. Creatinine 2.0. IMPRESSION: 1. Fecal impaction with constipation scattered through the colon. 2. Gastrointestinal bleed with hematochezia, likely secondary to stercoral colitis and proctitis. 3. Elevated INR. Her platelet count is normal. She does not have underlying cirrhosis. I do not see that she has been on warfarin or other anticoagulation. I am unclear why her INR is elevated at this time. She has been on antibiotics. If there is no thrombotic disease and she has not been on anticoagulation for reason, then a dose of vitamin K would be appropriate. 4. Protein-calorie malnutrition. 5. Anal fissure. RECOMMENDATIONS: 1. I will give GoLYTELY 2 L. 2. Clear liquid diet and when she has cleared her constipation, we can advance her diet. 3. I will prescribe nitroglycerin ointment for anal fissure. 4. I will follow up regarding the medication history if she is supposed to be anticoagulated or not. If her INR is just elevated due to antibiotics and reduction of vitamin K producing bacteria, then a dose of vitamin K would be appropriate given her GI bleeding. 5. Chronic anemia is most likely related to her end-stage renal disease. Job ID: [id number]
[2019-08-02] MEDS: Acetaminophen/Codeine 30-300mg Tablet PO PRN ×4 (01:59→21:17)
[2019-08-02] MEDS: Lidocaine-Prilocaine 2.5% Cream 5 GM TUBE TOP SCH ×2 (06:33→21:15)
[2019-08-02 06:50] LABS: INR-International Normal Ratio 2.1; PTT 55.4 SEC (22.9-36.1); Prothrombin Time 23.5 SEC (12.0-14.7)
[2019-08-02 07:03] LABS: Hemoglobin 8.2 g/dL (12.0-16.0); Mean Corpuscular HGB CONC 33.6 g/dL (32.0-36.0); Mean Corpuscular Hemoglobin 32.1 pg (27.0-31.0); Mean Corpuscular Volume 95.6 fL (78.0-98.0); Mean Platelet Volume 6.6 fL (7.4-10.4); Platelet Count 345 thou/uL (130-400); RBC Distribution Width 16.4 % (11.5-14.5); Red Blood Cell (RBC) Count 2.55 mill/uL (4.20-5.40)
[2019-08-02 07:08] LABS: Anion Gap 13 mmol/L (10-20); BUN (Urea Nitrogen) 29 mg/dL (9.8-20.1); Calc. Creatinine Clearance 30 mL/min (70-130); Calcium 7.9 mg/dL (7.8-10.44); Carbon Dioxide 26 mmol/L (22-29); Chloride 100 mmol/L (98-107); Estimated GFR-MDRD 19; Glucose 140 mg/dL (70-105); Magnesium 1.7 mg/dL (1.6-2.6); Potassium 4.1 mmol/L (3.5-5.1); Sodium 135 mmol/L (136-145)
[2019-08-02 07:25] LABS: Band 7 % (5-11); Eosinophils 1 % (0-10); Lymphocytes 7 % (21-51); MDiff Complete? YES; Monocytes 6 % (0-10); Neutrophil 78 % (42-75)
[2019-08-02] MEDS ORDERED: Nitroglycerin 2% Ointment 1 INCH/1 GM Packet TOP SCH (09:00)
[2019-08-02] MEDS ORDERED: FLU VACC QS2019-20(6MOS UP)/PF 60 MCG/0.5 ML SYRINGE IM ONE (09:00)
[2019-08-02] MEDS ORDERED: AQUAPHOR TOP SCH ×2 (09:00)
[2019-08-02] MEDS ORDERED: Prevnar 13-Val Conj/PF 0.5 ML SYRINGE IM ONE (09:00)
[2019-08-02] MEDS ORDERED: Amlodipine 5 MG TAB PO SCH (09:00)
[2019-08-02] MEDS ORDERED: NITROGLYCERIN TOP SCH ×2 (09:00)
[2019-08-02] MEDS: Amlodipine 10 MG TAB PO SCH (09:18)
[2019-08-02] MEDS: Aspirin 81 mg Enteric Coated Tablet PO SCH (09:19)
[2019-08-02] MEDS: Metoprolol Tartrate 25 MG TAB PO SCH ×2 (09:19→21:14)
[2019-08-02] MEDS: Senokot S 8.6-50 MG TAB PO SCH ×2 (09:21→21:14)
[2019-08-02] MEDS: Pantoprazole 40 MG VIAL IVP SCH (09:21)
[2019-08-02] MEDS: NITROGLYCERIN TOP SCH ×2 (09:23→21:15)
[2019-08-02] MEDS: AQUAPHOR TOP SCH ×2 (09:23→21:15)
[2019-08-02] MEDS: cloNIDine 0.1 MG TAB PO SCH ×2 (09:24→21:12)
[2019-08-02] MEDS ORDERED: Magnesium 2 GM/50 ML 2 GM in Premix Bag 1 BAG IVPB SCH (11:30)
--- NOTE | 2019-08-02 12:52 | PRG ---
DATE OF SERVICE: 08/02/2019 SUBJECTIVE: This is a 59-year-old female being seen for end-stage kidney disease. The patient denied nausea, vomiting, chest pain. PHYSICAL EXAMINATION: General: The patient is awake and alert. VITAL SIGNS: Afebrile, pulse 76, breathing 16, blood pressure 133/77. HEENT: Head normocephalic and atraumatic. Eyes intact, no ulcers. Nose intact, no ulcers. Ears intact, no ulcers. Neck: Supple. No JVD. Chest: Symmetrical and clear. Cardiovascular: Shows S1 and S2, no rub, no murmur. Gastrointestinal: Abdomen is soft, bowel sounds positive. Extremities: Show no edema or ulcers. Skin: Shows no rash or petechiae. Musculoskeletal: Shows no joint swelling or stiffness. Genitourinary: Shows no Weeks or CVA tenderness. Neurologic: Motor intact. Cranial nerves intact. LABORATORY DATA: Reviewed. IMPRESSION AND PLAN: 1. . 2. Stage 6 chronic kidney disease, stable. 3. Hypertension, stable. 4. Anemia, stable. 5. Medication based on GFR appropriate. Job ID: [id number]
--- NOTE | 2019-08-02 13:32 | PDOC.HOSPP ---
- Subjective Encounter Date: 08/02/19 Encounter Time: 09:00 Subjective: overnight, disimpacted by Dr. Newton, started on aggressive bowel regimen. Overnight, had 3 bowel movements, bright red blood, unknown if on surface or within stools. HD and HgB stable. This morning, rectal pain improved and appears better overall. - Objective Vital Signs & Weight: Vital Signs (12 hours) Temp Pulse Resp BP BP Pulse Ox 08/02/19 11:00 98.1 F 80 16 139/83 100 08/02/19 09:18 96 133/77 08/02/19 07:48 98.1 F 96 14 133/77 100 08/02/19 07:46 98.1 F 96 14 133/77 100 08/02/19 04:51 97.4 F L 96 20 126/74 100 Weight Weight 181 lb 12.8 oz I&O: 08/01/19 08/02/19 08/03/19 06:59 06:59 06:59 Intake Total 3200 Output Total 850 Balance 2350 Result Diagrams: 08/02/19 06:30 08/02/19 06:30 Additional Labs: Accuchecks 08/02/19 08/02/19 08/02/19 11:35 04:53 01:06 POC Glucose 198 H 149 H 150 H 08/01/19 08/01/19 21:03 16:12 POC Glucose 163 H 111 H Hospitalist ROS - Review of Systems Constitutional: denies: fever, chills, sweats, weakness, malaise, other Respiratory: denies: cough, dry, shortness of breath, hemoptysis, SOB with excertion, pleuritic pain, sputum, wheezing, other Cardiovascular: denies: chest pain, palpitations, orthopnea, paroxysmal noc. dyspnea, edema, light headedness, other Gastrointestinal: reports: hematochezia. denies: nausea, vomiting, abdominal pain, diarrhea, constipation, melena, other - Medication Medications: Active Medications Generic Name Dose Route Start Last Admin Trade Name Freq PRN Reason Stop Dose Admin Acetaminophen/Codeine Phosphate 2 tab 08/01/19 16:55 08/02/19 09:10 Tylenol #3 PO 2 tab Q4H PRN Administration Pain Amlodipine Besylate 10 mg 08/02/19 09:00 08/02/19 09:18 Norvasc PO 10 mg DAILY HOMERO Administration Aspirin 81 mg 08/02/19 09:00 08/02/19 09:19 Ecotrin PO 81 mg DAILY HOMERO Administration Atorvastatin Calcium 20 mg 08/01/19 21:00 08/01/19 21:55 Lipitor PO 20 mg HS HOMERO Administration Cefazolin Sodium 1 gm 08/01/19 17:00 08/01/19 18:44 Ancef SLOW IVP 1 gm Q24HR HOMERO Administration Clonidine 0.1 mg 08/01/19 21:00 08/02/19 09:24 Catapres PO Not Given BID HOMERO Mineral Oil/White Petrolatum 0 gm 08/02/19 09:00 08/02/19 09:23 90 gm/ Nitroglycerin 10 inch TOP 1 top BID HOMERO Administration Insulin Human Lispro 0 units 08/01/19 17:01 08/02/19 12:27 Humalog SC 2 unit .MILD SLIDING SCALE PRN Administration Mild Correctional Scale Lidocaine/Prilocaine 0 gm 08/01/19 17:00 08/02/19 06:33 Emla 2.5% TOP 1 applic 0500,1700 HOMERO Administration Metoprolol Tartrate 12.5 mg 08/01/19 21:00 08/02/19 09:19 Lopressor PO 12.5 mg BID HOMERO Administration Pantoprazole Sodium 40 mg 08/01/19 21:00 08/02/19 09:21 Protonix IVP 40 mg Q12HR HOMERO Administration Senna/Docusate Sodium 2 tab 08/01/19 21:00 08/02/19 09:21 Senokot S PO Not Given BID HOMERO Sertraline HCl 50 mg 08/01/19 21:00 08/01/19 21:55 Zoloft PO 50 mg HS HOMERO Administration Sodium Chloride 10 ml 08/01/19 21:00 08/02/19 09:22 Flush - Normal Saline IVF 10 ml Q12HR HOMERO Administration Sterile Water 0 ml 08/01/19 18:24 08/01/19 18:43 Water For Injection FS 2.5 ml PRN PRN Administration RECONSTITUTION - Exam General Appearance: NAD, awake alert Heart: RRR, no murmur, no gallops, no rubs Heart - other findings: right upper thorax port intact and doesnt appear infected Respiratory: CTAB, no wheezes, no rales, no ronchi Gastrointestinal: soft, non-tender, non-distended, normal bowel sounds Extremities: 1+ LE edema Psychiatric: normal affect, normal behavior, A&O x 3 Hosp A/P (1) Rectal bleeding Code(s): K62.5 - HEMORRHAGE OF ANUS AND RECTUM Status: Acute (2) Colitis Code(s): K52.9 - NONINFECTIVE GASTROENTERITIS AND COLITIS, UNSPECIFIED Status : Acute (3) Coagulopathy Status: Acute (4) Cervical discitis Code(s): M46.42 - DISCITIS, UNSPECIFIED, CERVICAL REGION Status: Acute (5) Diabetes mellitus type 2 with peripheral artery disease Code(s): E11.51 - TYPE 2 DIABETES W DIABETIC PERIPHERAL ANGIOPATH W/O GANGRENE Status: Chronic (6) ESRD on hemodialysis Code(s): N18.6 - END STAGE RENAL DISEASE; Z99.2 - DEPENDENCE ON RENAL DIALYSIS Status: Chronic - Plan -oral vitamin K provided; will give additional dose (3/2) -had several bowel movements, bloody, likely fissure/hemorrhoids; HD and HgB stable; will try to better characterize pattern on next bowel movement -advance to full liquid diet -otherwise no change in management; appreciate GI recs
[2019-08-02] MEDS ORDERED: Phytonadione 10 MG/ML AMP SLOW IVP SCH (13:45)
[2019-08-02] MEDS ORDERED: Phytonadione 10 MG/ML AMP PO SCH (13:45)
--- NOTE | 2019-08-02 14:39 | PRG ---
DATE OF SERVICE: 08/02/2019 SUBJECTIVE: Ms. Bright feels much better today. She is much more alert and appropriately interactive. She took the 2 L of GoLYTELY last night. Her abdominal pain is better today. OBJECTIVE: VITAL SIGNS: Temperature is 98.1, pulse is 80, blood pressure is 139/83. GENERAL: She is in no acute distress. Alert and oriented. LUNGS: Clear to auscultation bilaterally. HEART: Regular rate and rhythm without murmur. ABDOMEN: Soft, nontender, nondistended. Bowel sounds are present. EXTREMITIES: No lower extremity edema. IMPRESSION: 1. Fecal impaction, status post disimpaction last night. She has been treated with GoLYTELY with clear colon. We will plan a followup x-ray of her abdomen to see if this shows significant retention of stool. 2. Coagulopathy. I suspect her INR is elevated due to the antibiotics and poor nutrition. She received 1 dose of vitamin K last night and we will give another dose today. Recheck her INR tomorrow and I expect this should be coming down if this is a dietary and antibiotic induced vitamin K deficiency. 3. Hematochezia, likely secondary to some degree of ischemic colitis. Her hemoglobin is stable. RECOMMENDATIONS: 1. MiraLAX daily. 2. Check an abdominal x-ray tomorrow. 3. Nitroglycerin ointment twice daily to the anal canal for an anal fissure. 4. Recheck her INR tomorrow and evaluate responsive to vitamin K administration. Job ID: [id number]
[2019-08-02] MEDS: CEFAZOLIN 1 GM VIAL SLOW IVP SCH (18:08)
[2019-08-02] MEDS: Atorvastatin Calcium 20 MG TAB PO SCH (21:14)
[2019-08-03 05:45] LABS: Hemoglobin 7.7 g/dL (12.0-16.0)
[2019-08-03 05:53] LABS: INR-International Normal Ratio 1.1; PTT 42.2 SEC (22.9-36.1); Prothrombin Time 14.5 SEC (12.0-14.7)
--- NOTE | 2019-08-03 07:31 | RAD ---
KUB: DATE: 08/03/2019 INDICATION: History of constipation, fecal impaction, and disimpaction. COMPARISON: Prior exam dated 07/07/2019. FINDINGS: The degree of retained stool has significantly improved from the prior exam. A mild amount of residua l stool is seen within the rectum. Bowel gas pattern is unobstructed. Overlying sheet artifact slight ly limits evaluation of the abdomen. There is a left femoral central venous catheter projecting in th e region of the left common iliac vein. Partial visualization of thoracolumbar spine on this projecti on. IMPRESSION: 1. No acute abnormality. 2. Left-sided inguinal central venous catheter. POS: BH
[2019-08-03] MEDS: Senokot S 8.6-50 MG TAB PO SCH ×2 (09:18→23:54)
[2019-08-03] MEDS: Polyethylene Glycol 3350 17 GM Packet PO SCH (09:18)
[2019-08-03] MEDS: Aspirin 81 mg Enteric Coated Tablet PO SCH (09:24)
[2019-08-03] MEDS: cloNIDine 0.1 MG TAB PO SCH ×2 (09:24→23:52)
[2019-08-03] MEDS: Metoprolol Tartrate 25 MG TAB PO SCH ×2 (09:24→23:52)
[2019-08-03] MEDS: Amlodipine 10 MG TAB PO SCH (09:26)
[2019-08-03] MEDS: AQUAPHOR TOP SCH ×2 (09:28→23:54)
[2019-08-03] MEDS: NITROGLYCERIN TOP SCH ×2 (09:28→23:54)
[2019-08-03] MEDS: Lidocaine-Prilocaine 2.5% Cream 5 GM TUBE TOP SCH ×2 (09:29→23:59)
[2019-08-03] MEDS: Acetaminophen/Codeine 30-300mg Tablet PO PRN ×3 (09:38→20:22)
--- NOTE | 2019-08-03 10:45 | PRG ---
DATE OF SERVICE: 08/03/2019 SUBJECTIVE: Patient was seen and examined at bedside and overnight events noted. Patient denies any shortness of breath or chest pain or palpitation. No history of nausea or vomiting or diarrhea or fever or chills or cramps. OBJECTIVE: GENERAL: This is an obese female, in no apparent distress. VITAL SIGNS: Temperature 97.6. Heart rate 70. Respiratory rate 16. Blood pressure 101/63. HEENT: Atraumatic, normocephalic. Oral mucosa is moist NECK: Supple. CARDIOVASCULAR: S1, S2 heard. Rate and rhythm regular. RESPIRATORY: Clear to auscultation. GASTROINTESTINAL: Abdomen is soft. MUSCULOSKELETAL: No tenderness. No edema. DERMATOLOGIC: No skin rash. NEUROLOGIC: Alert and awake and oriented X3. No focal neurologic deficits. Moving all the extremities. PSYCHIATRIC: Mood and affect normal. LABORATORY DATA: None. ASSESSMENT AND PLAN: 1. End-stage renal disease. Continue on dialysis as tolerated. 2. Edema, controlled. 3. History of hypertension. 4. Anemia. We will continue Epogen with dialysis. 5. We will continue on dialysis Saturday, Saturday, Saturday as tolerated. Job ID: [id number]
[2019-08-03] MEDS ORDERED: Heparin 10,000 UNITS/ 10 ML VIAL ONE (11:54)
--- NOTE | 2019-08-03 12:57 | PRG ---
DATE OF SERVICE: 08/03/2019 SUBJECTIVE: Ms. Bright has no abdominal pain currently. She tolerated her diet. OBJECTIVE: VITAL SIGNS: Temperature is 97.6, pulse 73, blood pressure 101/63. GENERAL: She is awake and alert. LUNGS: Clear to auscultation bilaterally. HEART: Regular rate and rhythm without murmur. ABDOMEN: Soft, nontender, nondistended. Bowel sounds are present. EXTREMITIES: No lower extremity edema. LABORATORY DATA: Hemoglobin is 7.7. INR is down to 1.1. IMPRESSION: 1. Fecal impaction and constipation, status post disimpaction and course of 2 L of GoLYTELY. Since then, her symptoms are improved and her x-ray today shows that the constipation is cleared. She will need to maintain a chronic osmotic laxative. 2. Gastrointestinal bleed, likely secondary to stercoral colitis. 3. Coagulopathy secondary to dietary deficiency and antibiotics causing reduction in the bacterial production of vitamin K. Her INR has normalized after vitamin K supplement. RECOMMENDATIONS: 1. MiraLAX daily. 2. Continue the nitroglycerin ointment applied to the anal canal twice daily over the next month. 3. I will sign off. Please call if GI can help. Job ID: [id number]
[2019-08-03] MEDS ORDERED: EPOETIN ALFA-EPBX (ESRD) 10,000 UNIT/ML VIAL SC SCH (13:00)
--- NOTE | 2019-08-03 13:18 | PDOC.HOSPP ---
- Subjective Encounter Date: 08/03/19 Encounter Time: 09:00 Subjective: no overnight events. This morning, feels well overall and had no additional bowel movements. Pain is better controlled. GI signed off. Will undergo dialysis and sent back to [facility] 08/03. - Objective Vital Signs & Weight: Vital Signs (12 hours) Temp Pulse Resp BP Pulse Ox 08/03/19 09:26 73 08/03/19 07:51 97.6 F 73 16 101/63 100 Weight Admit Weight 181 lb 12.8 oz Weight 181 lb 12.8 oz I&O: 08/02/19 08/03/19 08/04/19 06:59 06:59 06:59 Intake Total 3200 730 Output Total 850 Balance 2350 730 Result Diagrams: 08/03/19 05:28 08/02/19 06:30 Additional Labs: Accuchecks 08/03/19 08/03/19 08/02/19 11:26 06:15 20:41 POC Glucose 122 H 135 H 174 H 08/02/19 16:40 POC Glucose 120 H Hospitalist ROS - Review of Systems Constitutional: denies: fever, chills, sweats, weakness, malaise, other Respiratory: denies: cough, dry, shortness of breath, hemoptysis, SOB with excertion, pleuritic pain, sputum, wheezing, other Cardiovascular: denies: chest pain, palpitations, orthopnea, paroxysmal noc. dyspnea, edema, light headedness, other Gastrointestinal: denies: nausea, vomiting, abdominal pain, diarrhea, constipation, melena, hematochezia, other Genitourinary: denies: retention - Medication Medications: Active Medications Generic Name Dose Route Start Last Admin Trade Name Freq PRN Reason Stop Dose Admin Acetaminophen/Codeine Phosphate 2 tab 08/01/19 16:55 08/03/19 09:38 Tylenol #3 PO 2 tab Q4H PRN Administration Pain Amlodipine Besylate 10 mg 08/02/19 09:00 08/03/19 09:26 Norvasc PO 10 mg DAILY HOMERO Administration Aspirin 81 mg 08/02/19 09:00 08/03/19 09:24 Ecotrin PO 81 mg DAILY HOMERO Administration Atorvastatin Calcium 20 mg 08/01/19 21:00 08/02/19 21:14 Lipitor PO 20 mg HS HOMERO Administration Cefazolin Sodium 1 gm 02/29/20 17:00 08/02/19 18:08 Ancef SLOW IVP Not Given Q24HR HOMERO Clonidine 0.1 mg 08/01/19 21:00 08/03/19 09:24 Catapres PO Not Given BID HOMERO Mineral Oil/White Petrolatum 0 gm 08/02/19 09:00 08/03/19 09:28 90 gm/ Nitroglycerin 10 inch TOP 1 top BID HOMERO Administration Insulin Human Lispro 0 units 08/01/19 17:01 08/02/19 12:27 Humalog SC 2 unit .MILD SLIDING SCALE PRN Administration Mild Correctional Scale Lidocaine/Prilocaine 0 gm 08/02/19 21:00 08/03/19 09:29 Emla 2.5% TOP 1 applic Q12HR HOMERO Administration Metoprolol Tartrate 12.5 mg 08/01/19 21:00 08/03/19 09:24 Lopressor PO 12.5 mg BID HOMERO Administration Pantoprazole Sodium 40 mg 08/03/19 09:00 08/03/19 09:27 Protonix PO 40 mg DAILY HOMERO Administration Polyethylene Glycol 17 gm 08/03/19 09:00 08/03/19 09:18 Miralax PO Not Given DAILY HOMERO Senna/Docusate Sodium 2 tab 08/01/19 21:00 08/03/19 09:18 Senokot S PO Not Given BID HOMERO Sertraline HCl 50 mg 08/01/19 21:00 08/02/19 21:14 Zoloft PO 50 mg HS HOMERO Administration Sodium Chloride 10 ml 08/01/19 21:00 08/03/19 09:28 Flush - Normal Saline IVF 10 ml Q12HR HOMERO Administration Sterile Water 0 ml 08/01/19 18:24 08/01/19 18:43 Water For Injection FS 2.5 ml PRN PRN Administration RECONSTITUTION - Exam General Appearance: NAD, awake alert ENT: normocephalic atraumatic ENT - other findings: c-collar in place Neck: no JVD Heart: RRR, no murmur, no gallops, no rubs Heart - other findings: right upper thorax port noninfected Respiratory: CTAB, no wheezes, no rales, no ronchi Gastrointestinal: soft, non-tender, non-distended, normal bowel sounds Extremities: 1+ LE edema Psychiatric: normal affect, normal behavior, A&O x 3 Hosp A/P (1) Rectal bleeding Code(s): K62.5 - HEMORRHAGE OF ANUS AND RECTUM Status: Acute (2) Colitis Code(s): K52.9 - NONINFECTIVE GASTROENTERITIS AND COLITIS, UNSPECIFIED Status : Acute (3) Coagulopathy Status: Acute (4) Cervical discitis Code(s): M46.42 - DISCITIS, UNSPECIFIED, CERVICAL REGION Status: Acute (5) Diabetes mellitus type 2 with peripheral artery disease Code(s): E11.51 - TYPE 2 DIABETES W DIABETIC PERIPHERAL ANGIOPATH W/O GANGRENE Status: Chronic (6) ESRD on hemodialysis Code(s): N18.6 - END STAGE RENAL DISEASE; Z99.2 - DEPENDENCE ON RENAL DIALYSIS Status: Chronic - Plan -no additional bowel movements -bleeding likely due to fissure/hemorrhoids -INR corrected after vitamin K -GI signed off -HD today -continue bowel regimen; will monitor to make sure bowel movements consistent prior to discharge considering has had constipation for nearly a month -continue topical anal medications -educated patient regarding anal fissure, significant associated pain, and course of healing -restarted solid diet -will make appointment with ID prior to discharge to discuss alternatives to cefazolin considering possible role in coagulapathy
--- NOTE | 2019-08-03 17:00 | EKG ---
Test Reason : STAT Blood Pressure : / mmHG Vent. Rate : 094 BPM Atrial Rate : 094 BPM P-R Int : 136 ms QRS Dur : 072 ms QT Int : 362 ms P-R-T Axes : 028 -16 065 degrees QTc Int : 452 ms Normal sinus rhythm Cannot rule out Anterior infarct , age undetermined Abnormal ECG When compared with ECG of 15-APR-2019 16:47, No significant change was found Confirmed by DR. Alycia WOODSON ([id number]) on 08/03/2019 5:00:19 PM Referred By: LISA Confirmed By:DR. Alycia WOODSON
[2019-08-03] MEDS: CEFAZOLIN 1 GM VIAL SLOW IVP SCH (18:13)
[2019-08-03 19:43] LABS: HBSAg Index 0.33 S/CO (0-0.99); Hep B Surf Ag Non-Reactive S/CO (NonReactive)
[2019-08-04] MEDS: Atorvastatin Calcium 20 MG TAB PO SCH ×2 (00:23→21:42)
--- NOTE | 2019-08-04 00:50 | PDOC.EVN ---
Event Note - Event Note Event Note: Called to evaluate patient for hypotension. She does not have any complaints other than trouble hearing out of her left ear. Lungs are clear, Abdomen is soft , bowel sounds are present. No edema. Concern is for sepsis- She had urine culture which grew Vanc resistant enterococcus. She is currently on Ancef for C - spine osteomyelitis. Will work-up for sepsis- Bolus with IV fluids, and give a one time dose of Zyvox, and Cefepime. She may need to be moved to Tele or IMCU depending on her progress.
[2019-08-04] MEDS ORDERED: Linezolid 600 MG in Premix Bag 1 BAG IVPB SCH (01:00)
[2019-08-04] MEDS ORDERED: Cefepime 1 GM in Sodium Chloride 0.9% 100 ML IVPB SCH (01:30)
[2019-08-04 02:15] LABS: #Eosinphils 0.2 thou/uL (0.0-0.7); #Lymphocytes 1.3 thou/uL (1.20-3.40); #Monocytes 0.9 thou/uL (0.11-0.59); #Neutrophils 16.3 thou/uL (1.40-6.50); %Basophils 0.1 % (0.0-1.0); %Eosinophils 0.8 % (0.0-10.0); %Lymphocytes 6.7 % (21.0-51.0); %Monocytes 4.6 % (0.0-10.0); %Neutrophils 87.7 % (42.0-75.0); Hemoglobin 8.1 g/dL (12.0-16.0); Mean Corpuscular HGB CONC 34.4 g/dL (32.0-36.0); Mean Corpuscular Hemoglobin 32.9 pg (27.0-31.0); Mean Corpuscular Volume 95.9 fL (78.0-98.0); Mean Platelet Volume 6.8 fL (7.4-10.4); Platelet Count 271 thou/uL (130-400); RBC Distribution Width 16.4 % (11.5-14.5); Red Blood Cell (RBC) Count 2.45 mill/uL (4.20-5.40); White Blood Cell (WBC) Count 18.6 thou/uL (4.8-10.8)
[2019-08-04 02:21] LABS: INR-International Normal Ratio 0.9; Prothrombin Time 12.4 SEC (12.0-14.7)
[2019-08-04 02:38] LABS: ALT (SGPT) Less than 7 U/L (8-55); AST (SGOT) 11 U/L (5-34); Albumin 1.9 g/dL (3.5-5.0); Alkaline Phosphatase 109 U/L (40-110); Anion Gap 15 mmol/L (10-20); BUN (Urea Nitrogen) 13 mg/dL (9.8-20.1); Bilirubin, Total 0.3 mg/dL (0.2-1.2); Calc. Creatinine Clearance 62 mL/min (70-130); Calcium 7.6 mg/dL (7.8-10.44); Carbon Dioxide 23 mmol/L (22-29); Chloride 105 mmol/L (98-107); Estimated GFR-MDRD 43; Globulin 2.6 g/dL (2.4-3.5); Glucose 108 mg/dL (70-105); Magnesium 1.8 mg/dL (1.6-2.6); Potassium 3.8 mmol/L (3.5-5.1); Protein, Total 4.5 g/dL (6.0-8.3); Sodium 139 mmol/L (136-145)
[2019-08-04] MEDS ORDERED: Sodium Chloride 0.9% 500 ML IV SCH (07:15)
--- NOTE | 2019-08-04 07:28 | RAD ---
CHEST 1 VIEW: Date: 08/04/2019 INDICATION: Hypotension. COMPARISON: Prior exam dated 04/15/2019. FINDINGS: There is a right IJ dialysis catheter. There is bibasilar atelectasis. Heart size accentuated by exam technique. No pleural effusion or pneumothorax evident. Thoracic spinal instrumentation has been denice lyubov in the interim. Visualized upper abdomen reveals no definite acute abnormality. IMPRESSION: Bibasilar subsegmental atelectasis likely related to hypoventilation. POS: BH
[2019-08-04] MEDS: Polyethylene Glycol 3350 17 GM Packet PO SCH (08:00)
[2019-08-04] MEDS: Metoprolol Tartrate 25 MG TAB PO SCH ×2 (08:00→21:43)
[2019-08-04] MEDS: cloNIDine 0.1 MG TAB PO SCH (08:00)
[2019-08-04] MEDS: Senokot S 8.6-50 MG TAB PO SCH ×2 (08:01→21:42)
[2019-08-04 08:12] LABS: Bilirubin Negative (Negative); Blood, Urine 1+ (Negative); Clarity Turbid (Clear); Glucose, Urine (Dipstick) Normal (Negative); Leukocyte 500 Leu/uL (Negative); Nitrite Negative (Negative); Protein, Urine (Dipstick) 300 mg/dL (Neg-Trace); Squamous Epithelial 0-3 HPF (0-3); Urobilinogen Normal mg/dL (Less than 2); WBC/HPF Greater than 50 HPF (0-3)
[2019-08-04 08:30] LABS: Bacteria/HPF Rare-Few HPF (None Seen); Yeast-Hyphae 2+ HPF (None Seen)
[2019-08-04 08:32] LABS: Urine Culture Reflex Yes Yes
[2019-08-04] MEDS: Aspirin 81 mg Enteric Coated Tablet PO SCH (09:16)
[2019-08-04] MEDS: Acetaminophen/Codeine 30-300mg Tablet PO PRN ×3 (09:23→21:43)
[2019-08-04] MEDS: AQUAPHOR TOP SCH ×2 (09:27→21:54)
[2019-08-04] MEDS: NITROGLYCERIN TOP SCH ×2 (09:27→21:54)
[2019-08-04] MEDS: Lidocaine-Prilocaine 2.5% Cream 5 GM TUBE TOP SCH ×2 (09:27→21:54)
[2019-08-04] MEDS: Amlodipine 10 MG TAB PO SCH (10:45)
--- NOTE | 2019-08-04 15:30 | PRG ---
DATE OF SERVICE: 08/04/2019 SUBJECTIVE: Patient was seen and examined at bedside and overnight events noted. Patient denies any shortness of breath or chest pain or palpitation. No history of nausea or vomiting or diarrhea or fever or chills or cramps. OBJECTIVE: GENERAL: This is a well-built female, in no apparent distress. VITAL SIGNS: Temperature 97.9. Heart Rate 86. Respiratory rate 16. Blood pressure 105/57. HEENT: Atraumatic, normocephalic. Oral mucosa is moist. NECK: Supple. CARDIOVASCULAR: S1, S2 heard. Rate and rhythm regular. RESPIRATORY: Clear to auscultation. GASTROINTESTINAL: Abdomen is soft. MUSCULOSKELETAL: No tenderness. No edema. DERMATOLOGIC: No skin rash. NEUROLOGIC: Alert and awake and oriented x3. No focal neurologic deficits. Moving all the extremities. PSYCHIATRIC: Mood and affect normal. LABORATORY DATA: Potassium 3.8, BUN is 13, and creatinine is 1.2. ASSESSMENT AND PLAN: 1. End-stage renal disease. Continue dialysis on Saturday, Saturday, and Saturday. 2. Edema. Remove fluid with dialysis. 3. History of hypertension. 4. History of anemia. Continue dialysis on Saturday, Saturday, and Saturday as tolerated. Job ID: [id number]
[2019-08-04] MEDS: CEFAZOLIN 1 GM VIAL SLOW IVP SCH (16:14)
--- NOTE | 2019-08-04 20:22 | PDOC.HOSPP ---
- Subjective Encounter Date: 08/04/19 Encounter Time: 13:00 Subjective: no overnight events. This morning, complains of pain with defecation. otherwise no complaints. - Objective Vital Signs & Weight: Vital Signs (12 hours) Temp Pulse Resp BP Pulse Ox 08/04/19 19:40 98.5 F 88 20 115/77 100 08/04/19 10:45 86 Weight Admit Weight 181 lb 12.8 oz Weight 181 lb 12.8 oz I&O: 08/03/19 08/04/19 08/05/19 06:59 06:59 06:59 Intake Total 730 1260 Balance 730 1260 Result Diagrams: 08/04/19 02:01 08/04/19 02:01 Additional Labs: Accuchecks 08/04/19 08/04/19 08/04/19 19:49 16:51 11:49 POC Glucose 146 H 166 H 132 H 08/04/19 08/04/19 05:17 00:15 POC Glucose 168 H 121 H Hospitalist ROS - Review of Systems Constitutional: denies: fever, chills, sweats, weakness, malaise, other Respiratory: denies: cough, dry, shortness of breath, hemoptysis, SOB with excertion, pleuritic pain, sputum, wheezing, other Cardiovascular: denies: chest pain, palpitations, orthopnea, paroxysmal noc. dyspnea, edema, light headedness, other Gastrointestinal: denies: nausea, vomiting, abdominal pain, diarrhea, constipation, melena, hematochezia, other Skin: denies: rash, lesions, dario, bruising, other - Medication Medications: Active Medications Generic Name Dose Route Start Last Admin Trade Name Freq PRN Reason Stop Dose Admin Acetaminophen/Codeine Phosphate 2 tab 08/01/19 16:55 08/04/19 16:08 Tylenol #3 PO 2 tab Q4H PRN Administration Pain Amlodipine Besylate 10 mg 08/02/19 09:00 08/04/19 10:45 Norvasc PO Not Given DAILY HOMERO Aspirin 81 mg 08/02/19 09:00 08/04/19 09:16 Ecotrin PO 81 mg DAILY HOMERO Administration Atorvastatin Calcium 20 mg 08/01/19 21:00 08/04/19 00:23 Lipitor PO 20 mg HS HOMERO Administration Cefazolin Sodium 1 gm 08/01/19 17:00 08/04/19 16:14 Ancef SLOW IVP 1 gm Q24HR HOMERO Administration Mineral Oil/White Petrolatum 0 gm 08/02/19 09:00 08/04/19 09:27 90 gm/ Nitroglycerin 10 inch TOP 1 top BID HOMERO Administration Insulin Human Lispro 0 units 08/01/19 17:01 08/02/19 12:27 Humalog SC 2 unit .MILD SLIDING SCALE PRN Administration Mild Correctional Scale Lidocaine/Prilocaine 0 gm 08/02/19 21:00 08/04/19 09:27 Emla 2.5% TOP 1 applic Q12HR HOMERO Administration Metoprolol Tartrate 12.5 mg 08/01/19 21:00 08/04/19 08:00 Lopressor PO Not Given BID HOMERO Pantoprazole Sodium 40 mg 08/03/19 09:00 08/04/19 09:16 Protonix PO 40 mg DAILY HOMERO Administration Polyethylene Glycol 17 gm 08/03/19 09:00 08/04/19 08:00 Miralax PO Not Given DAILY HOMERO Senna/Docusate Sodium 2 tab 08/01/19 21:00 08/03/19 23:54 Senokot S PO 2 tab BID HOMERO Administration Sertraline HCl 50 mg 08/01/19 21:00 08/03/19 23:53 Zoloft PO 50 mg HS HOMERO Administration Sodium Chloride 10 ml 08/01/19 21:00 08/04/19 10:48 Flush - Normal Saline IVF Not Given Q12HR HOMERO Sterile Water 0 ml 08/01/19 18:24 08/01/19 18:43 Water For Injection FS 2.5 ml PRN PRN Administration RECONSTITUTION - Exam General Appearance: NAD, awake alert Neck: no JVD Heart: RRR, no murmur, no gallops, no rubs Respiratory: CTAB, no wheezes, no rales, no ronchi, normal chest expansion Gastrointestinal: soft, non-tender, non-distended, normal bowel sounds Extremities: 1+ LE edema Psychiatric: normal affect, normal behavior, A&O x 3 Hosp A/P (1) Rectal bleeding Code(s): K62.5 - HEMORRHAGE OF ANUS AND RECTUM Status: Acute (2) Colitis Code(s): K52.9 - NONINFECTIVE GASTROENTERITIS AND COLITIS, UNSPECIFIED Status : Acute (3) Coagulopathy Status: Acute (4) Cervical discitis Code(s): M46.42 - DISCITIS, UNSPECIFIED, CERVICAL REGION Status: Acute (5) Diabetes mellitus type 2 with peripheral artery disease Code(s): E11.51 - TYPE 2 DIABETES W DIABETIC PERIPHERAL ANGIOPATH W/O GANGRENE Status: Chronic (6) ESRD on hemodialysis Code(s): N18.6 - END STAGE RENAL DISEASE; Z99.2 - DEPENDENCE ON RENAL DIALYSIS Status: Chronic - Plan -had another bowel movement overnight -bleeding likely due to fissure/hemorrhoids -INR corrected after vitamin K -GI signed off -continue bowel regimen; will monitor to make sure bowel movements consistent prior to discharge considering has had constipation for nearly a month -continue topical anal medications -educated patient regarding anal fissure, significant associated pain, side effects of topicals including headache and hypotension, and course of healing -will make appointment with ID prior to discharge to discuss alternatives to cefazolin considering possible role in coagulapathy
[2019-08-05] MEDS: Acetaminophen/Codeine 30-300mg Tablet PO PRN ×2 (06:39→13:51)
[2019-08-05 08:16] LABS: Anion Gap 13 mmol/L (10-20); BUN (Urea Nitrogen) 19 mg/dL (9.8-20.1); Calc. Creatinine Clearance 34 mL/min (70-130); Calcium 7.8 mg/dL (7.8-10.44); Carbon Dioxide 27 mmol/L (22-29); Chloride 103 mmol/L (98-107); Estimated GFR-MDRD 21; Glucose 127 mg/dL (70-105); Magnesium 1.8 mg/dL (1.6-2.6); Sodium 139 mmol/L (136-145)
[2019-08-05] MEDS ORDERED: cloNIDine 0.1 MG TAB PO SCH (09:00)
--- NOTE | 2019-08-05 10:30 | PRG ---
DATE OF SERVICE: 08/05/2019 SUBJECTIVE: Patient was seen and examined at bedside and overnight events noted. Patient denies any shortness of breath or chest pain or palpitation. No history of nausea or vomiting or diarrhea or fever or chills or cramps. OBJECTIVE: General: This is an obese female, in no apparent distress. Vital Signs: Temperature 97.9, pulse 81, respiratory rate 20, blood pressure 116/70. HEENT: Atraumatic, normocephalic. Oral mucosa is moist. Neck: Supple. Cardiovascular: S1, S2 heard. Rate and rhythm regular. Respiratory: Clear to auscultation. Gastrointestinal: Abdomen is soft. Musculoskeletal: No tenderness. No edema. Dermatologic: No skin rash. Neurologic: Alert and awake and oriented x3. No focal neurologic deficits. Moving all the extremities. Psychiatric: Mood and affect normal. LABORATORY DATA: Potassium 4.0, BUN is 19, and creatinine is 2.3. ASSESSMENT AND PLAN: 1. End-stage renal disease, continue on hemodialysis Saturday, Saturday, Saturday. 2. Edema, we will remove fluid by dialysis. 3. History of hypertension. 4. History of anemia. PLAN: To continue dialysis Saturday, Saturday, Saturday as tolerated. Job ID: [id number]
[2019-08-05] MEDS ORDERED: Heparin 10,000 UNITS/ 10 ML VIAL ONE (10:59)
[2019-08-05 12:03] LABS: Prothrombin Time 13.1 SEC (12.0-14.7)
[2019-08-05 12:04] LABS: PTT 50.8 SEC (22.9-36.1)
[2019-08-05 12:47] VITALS: BP 101/67; TEMP 97.5
[2019-08-05] MEDS: Lidocaine-Prilocaine 2.5% Cream 5 GM TUBE TOP SCH (13:56)
[2019-08-05] MEDS: Aspirin 81 mg Enteric Coated Tablet PO SCH (13:56)
[2019-08-05] MEDS: Metoprolol Tartrate 25 MG TAB PO SCH (13:59)
[2019-08-05] MEDS: Polyethylene Glycol 3350 17 GM Packet PO SCH (14:00)
[2019-08-05] MEDS: Senokot S 8.6-50 MG TAB PO SCH (14:00)
[2019-08-05] MEDS: NITROGLYCERIN TOP SCH (14:00)
[2019-08-05] MEDS: AQUAPHOR TOP SCH (14:00)
--- NOTE | 2019-08-06 13:38 | DIS ---
DATE OF ADMISSION: 08/01/2019 DATE OF DISCHARGE: 08/05/2019 HOSPITAL COURSE: Ms. Bright is a 59-year-old female with a medical history of cervical and thoracic vertebral osteomyelitis, status post decompression and hardware placement, end-stage renal disease on hemodialysis, who presented for hematochezia. She was diagnosed with external hemorrhoid and an anal fissure and was provided with an acidic topical cream as well as nitroglycerin, which can cause headaches as well as hypertension. The patient remained hemodynamically stable and her hemoglobin remained stable and at baseline throughout her inpatient stay. The patient underwent hemodialysis on the day of discharge and after dialysis, she claimed to have reduced hearing. However, extensive neurologic exam was negative including cranial nerves and the patient was discharged to rehab hemodynamically stable with no other complaints. In addition to the aforementioned problems, the patient also presented with coagulopathy on presentation. She had an elevated PT and PTT. Vitamin K x2 was provided and the patient's coagulation parameters normalized. The coagulopathy was likely to malnutrition and reduced formation of coagulation factors, however, the patient is on chronic antibiotic for her osteomyelitis, cefazolin, which has been reported to cause coagulopathy as well. However, the antibiotic was restarted prior to discharge and the patient was scheduled to follow up with Dr. Ward, the Infectious Disease physician to follow up on her coagulation studies as well as consider alternative antibiotics for treatment of her osteomyelitis. Job ID: [id number]
== END 2019-08-05 15:28 | DRG 393 ==
LOC: ERS 07:13 → T4-A 11:53
PROVIDERS: ADMIT Internal Medicine; ATTEND Internal Medicine
DX: K60.2 Anal fissure, unspecified (principal); N18.6 End stage renal disease; I12.0 Hypertensive chronic kidney disease with stage 5 chronic kidney disease or end stage renal disease; D68.9 Coagulation defect, unspecified; E46 Unspecified protein-calorie malnutrition; K55.9 Vascular disorder of intestine, unspecified; D63.1 Anemia in chronic kidney disease; K64.4 Residual hemorrhoidal skin tags; E11.22 Type 2 diabetes mellitus with diabetic chronic kidney disease; E78.5 Hyperlipidemia, unspecified; E78.00 Pure hypercholesterolemia, unspecified; F41.9 Anxiety disorder, unspecified; E87.6 Hypokalemia; F32.9 Major depressive disorder, single episode, unspecified; K52.9 Noninfective gastroenteritis and colitis, unspecified; M46.42 Discitis, unspecified, cervical region; G47.33 Obstructive sleep apnea (adult) (pediatric); I25.10 Atherosclerotic heart disease of native coronary artery without angina pectoris; E66.01 Morbid (severe) obesity due to excess calories; K56.41 Fecal impaction; E11.51 Type 2 diabetes mellitus with diabetic peripheral angiopathy without gangrene; Z98.42 Cataract extraction status, left eye; Z79.4 Long term (current) use of insulin; Z98.41 Cataract extraction status, right eye; Z89.429 Acquired absence of other toe(s), unspecified side; Z99.2 Dependence on renal dialysis; Z90.49 Acquired absence of other specified parts of digestive tract; Z87.891 Personal history of nicotine dependence
CPT/HCPCS: 36415; 36416; 71045; 74018; 74176; 80048; 80053; 81001; 83605; 83735; 84145; 84484; 85014; 85018; 85025; 85610; 85730; 86850; 86900; 86901; 87040; 87077; 87086; 87186; 87340; 90471; 90670; 90686; 93005; 93010; C9113; G0008; G0009; J0690; J0692; J1644; J1815; J2001; J2020; J2270; J2354; J3430; J3475; J3480; J3490; J7050; S0020

== ENCOUNTER 2019-08-17 13:35 | Outpatient (CLI) | payer MEDICARE, MEDICAID ==
--- NOTE | 2019-08-17 14:46 | RAD ---
THREE VIEWS THORACIC SPINE: COMPARISON: CT thoracic spine 06/26/2019. HISTORY: Status post fusion of the thoracic spine for a mid thoracic fracture. FINDINGS: Three views of the thoracic spine show the patient to be status post posterior fusion of the midthora cic spine spanning the previously seen fracture of the T8 vertebral body. There is approximately 50- 75% height loss of the T8 vertebral body. No perihardware lucency is seen. The vertebral bodies dem onstrate normal alignment without subluxation. Hardware is also seen in the cervical spine. A hemodialysis catheter is partially visualized. IMPRESSION: Postsurgical changes of the thoracic spine without evidence of complication. POS: [facility]
--- NOTE | 2019-08-17 14:49 | RAD ---
CERVICAL SPINE SERIES 3 VIEWS: HISTORY: Followup surgery. COMPARISON: 06/26/2019 CT examination. FINDINGS: There has been interval surgery with anterior plate and screws seen extending from C5 to C7 with an i ntervening bone graft that has been placed at the C6 level. Bony alignment appears satisfactory. IMPRESSION: Postoperative changes of the lower cervical spine. POS: [facility]
== END 2019-08-17 13:36 | disposition home or self-care (01) ==
LOC: TBSIIMAG 13:35
PROVIDERS: ATTEND Surgery
DX: M86.9 Osteomyelitis, unspecified (principal); M48.02 Spinal stenosis, cervical region; Z98.890 Other specified postprocedural states
CPT/HCPCS: 72040; 72072

== ENCOUNTER 2019-09-03 10:30 | Inpatient (IN) | payer MEDICARE, MEDICAID, OTHER ==
[~2019-09-03 10:30] MED LIST changes: +EPINEPHrine 1 MG/10 ML Abboject SYRINGE ONE; -Iopamidol 370 76% 100 ML VIAL ONE
[2019-09-03 11:32] LABS: Hemoglobin 9.9 g/dL (12.0-16.0); Mean Corpuscular HGB CONC 32.2 g/dL (32.0-36.0); Mean Corpuscular Hemoglobin 29.2 pg (27.0-31.0); Mean Corpuscular Volume 90.8 fL (78.0-98.0); Mean Platelet Volume 9.5 fL (7.4-10.4); Platelet Count 97 thou/uL (130-400); RBC Distribution Width 14.9 % (11.5-14.5); Red Blood Cell (RBC) Count 3.38 mill/uL (4.20-5.40); White Blood Cell (WBC) Count 16.6 thou/uL (4.8-10.8)
--- NOTE | 2019-09-03 11:38 | RAD ---
EXAM: XR Chest 1 View Portable PROVIDED CLINICAL HISTORY: Altered mental status COMPARISON: 08/04/2019 FINDINGS: Cardiac silhouette appears enlarged, which may be least partially on the basis of portable technique. Vascular calcification is noted involving the aortic arch. Right IJ dialysis catheter is again noted in similar position. There is patchy left suprahilar airspace disease. Lungs appear otherwise c lear. No pleural fluid or pneumothorax apparent. Postoperative changes involving the cervical and thoracic spine noted. IMPRESSION: Left suprahilar airspace disease, which may reflect pneumonia in the appropriate clinical context. Fo llow-up is recommended.
[2019-09-03 11:42] LABS: Band 2 % (5-11); Eosinophils 1 % (0-10); Hypochromia SLIGHT = 6-15 cells (100X) (0-5/hpf); Lymphocytes 11 % (21-51); MDiff Complete? YES; Monocytes 2 % (0-10); Neutrophil 84 % (42-75); Platelet Morphology Comment Appears Decreased; Polychromasia SLIGHT = 2-3 cells (100X) (0-2/hpf); Target Cells SLIGHT = 2-5 cells (100X) (0-1/hpf)
[2019-09-03] MEDS ORDERED: Cefepime 2 GM VIAL ONE (11:53)
[2019-09-03] MEDS ORDERED: Norepinephrine 4 MG/4 ML VIAL ONE (12:55)
[2019-09-03] MEDS ORDERED: Norepinephrine 8 MG in Dextrose 5% in Water 242 ML IVPB PRN (13:02)
[2019-09-03] MEDS ORDERED: EPINEPHrine 1 MG/10 ML Abboject SYRINGE ONE (13:05)
[2019-09-03] MEDS ORDERED: Iopamidol-370 76% 500 ML 1 ML ONE (13:23)
[2019-09-03] MEDS ORDERED: Heparin 10,000 UNITS/ 10 ML VIAL ONE (13:30)
[2019-09-03 14:25] LABS: Albumin 1.3 g/dL (3.5-5.0)
[2019-09-03 14:27] LABS: Calcium 6.8 mg/dL (7.8-10.44); Chloride 99 mmol/L (98-107); Potassium 3.9 mmol/L (3.5-5.1); Sodium 134 mmol/L (136-145)
[2019-09-03 14:28] LABS: Globulin 2.2 g/dL (2.4-3.5); Glucose 146 mg/dL (70-105); Protein, Total 3.5 g/dL (6.0-8.3)
[2019-09-03 14:29] LABS: Anion Gap 18 mmol/L (10-20); Carbon Dioxide 21 mmol/L (22-29)
[2019-09-03 14:30] LABS: Bilirubin, Total 0.5 mg/dL (0.2-1.2)
[2019-09-03 14:31] LABS: Alkaline Phosphatase 254 U/L (40-110); Calc. Creatinine Clearance 0 mL/min (70-130); Estimated GFR-MDRD 9
[2019-09-03 14:32] LABS: BUN (Urea Nitrogen) 48 mg/dL (9.8-20.1)
[2019-09-03 14:33] LABS: AST (SGOT) 47 U/L (5-34); Magnesium 1.5 mg/dL (1.6-2.6)
[2019-09-03 14:34] LABS: ALT (SGPT) 47 U/L (8-55); Lipase 8 U/L (8-78)
[2019-09-03] MEDS ORDERED: Dextrose 50% Abboject 50 ML SYRINGE SLOW IVP PRN (14:49)
[2019-09-03] MEDS ORDERED: Norepinephrine 8 MG/0.9% NS 250 ML IVPB SCH (14:49)
[2019-09-03] MEDS ORDERED: Bisacodyl 10 MG SUPP PR PRN (14:49)
[2019-09-03] MEDS ORDERED: Acetaminophen 650 MG Suppository PR PRN (14:49)
[2019-09-03] MEDS ORDERED: Dextrose 5% in Water 1,000 ML IV PRN (14:49)
[2019-09-03] MEDS ORDERED: Acetaminophen 325 MG TAB PO PRN (14:49)
[2019-09-03] MEDS ORDERED: Ondansetron PF 4 MG/2 ML Vial IVP PRN (14:49)
[2019-09-03] MEDS ORDERED: Guaifenesin DM 100-10/5 ML UDCUP PO PRN (14:49)
[2019-09-03] MEDS ORDERED: Vancomycin HCl 1 GM in Sodium Chloride 0.9% 250 ML 250 ML IVPB SCH (14:49)
[2019-09-03] MEDS ORDERED: Azithromycin 500 MG in Sodium Chloride 0.9% 250 ML 250 ML IVPB SCH (15:00)
[2019-09-03 15:23] LABS: Fibrinogen 247 mg/dL (253-463)
[2019-09-03 15:24] LABS: INR-International Normal Ratio 3.3
[2019-09-03 15:25] LABS: D-Dimer Test 0.51 *mcg/mL (0.27-0.43)
--- NOTE | 2019-09-03 15:33 | CON ---
DATE OF CONSULTATION: 09/03/2019 REASON FOR CONSULTATION: Hypotension. This encompassed 45 minutes critical care time. HISTORY OF PRESENT ILLNESS: Ms. Bright is a 59-year-old fpc patient. She presents to the hospital with complaints of altered mental status per her fpc. She apparently has missed her last dialysis session for reasons that are not clear. She was found to be hypotensive in the ER. She was started on a Levophed drip. When I interviewed her in the ER, found her to be slightly confused. She was complaining only of right hip pain. Denying shortness of breath or cough. I have told by the ER nurse that a COVID-19 test has been drawn. PAST MEDICAL HISTORY: 1. End-stage renal disease, requiring hemodialysis. 2. Sleep apnea. 3. Cervical and thoracic osteomyelitis. 4. Myelopathy and radiculopathy. 5. Spinal cord central canal stenosis. 6. Hyperlipidemia. 7. Coronary artery disease. 8. Endocarditis. 9. Cataracts. 10. Right eye blindness. PAST SURGICAL HISTORY: 1. Dialysis access and revision. 2. Partial amputation of right first and second toes. 3. Appendectomy. 4. Cataract removal. 5. Right ankle repair. MEDICATIONS: Prior to admission; 1. Aspirin 81 mg daily. 2. Amlodipine 5 mg daily. 3. Atorvastatin 20 mg daily. 4. Pepcid 20 mg twice daily. 5. Metoprolol 50 mg twice daily. 6. Nitroglycerin sublingual 0.4 mg as needed. 7. Clonidine 0.1 mg transdermally every 24 hours. 8. NovoLog insulin 35 units subcu twice daily. 9. Sertraline 50 mg daily. ALLERGIES: NONE. FAMILY MEDICAL HISTORY: Remarkable for diabetes. SOCIAL HISTORY: Nonsmoker. Does not consume alcohol. REVIEW OF SYSTEMS: Cannot be obtained secondary to the patient's confusion. PHYSICAL EXAMINATION: VITAL SIGNS: Temperature 97.7, pulse 73, blood pressure 150/45, O2 saturations 100% on 2 L. GENERAL: She is awake and in no distress. HEENT: Pupils 3 mm, reactive bilaterally. Sclerae are anicteric. Oropharynx dry. NECK: No adenopathy or JVD. LUNGS: Clear to auscultation without wheezing or rhonchi. CARDIOVASCULAR: S1 and S2. Regular without murmur. ABDOMEN: Obese, soft, nontender, nondistended. EXTREMITIES: No clubbing, cyanosis, or edema. LABORATORY DATA: White blood cell count 16.6, hematocrit 30.7, and platelet count 97 with 84 neutrophils, 2 bands. Sodium 134, potassium 3.9, chloride 99, CO2 of 21, BUN 48, creatinine 5.1, glucose 146, lactate 3.3, AST 47, ALT 47, alkaline phosphatase 254. IMAGING STUDIES: Chest x-ray shows a question of a left upper lobe infiltrate, although some of this looks chronic, looking at previous x-rays. ASSESSMENT: 1. Hypotension, possible septic shock. 2. End-stage renal disease. 3. Multiple other medical problems as listed above. PLAN: 1. I agree with the empiric antibiotics chosen including azithromycin, cefepime, and vancomycin. 2. She will need dialysis. 3. IV fluids. Thank you for the referral. We will follow. Job ID: [id number]
[2019-09-03 15:38] LABS: FSP-Qualitative Normal (Normal)
[2019-09-03 15:40] LABS: Platelet Count 117 thou/uL (130-400)
[2019-09-03 15:45] LABS: Bilirubin Small (Negative); Blood, Urine Large (Negative); Glucose, Urine (Dipstick) Negative (Negative); Leukocyte Large (Negative); Nitrite Negative (Negative); Protein, Urine (Dipstick) 100 mg/dL (Neg-Trace); Urobilinogen 0.2 mg/dL (Less than 2)
[2019-09-03 15:56] LABS: Clarity Turbid (Clear)
--- NOTE | 2019-09-03 15:58 | HP ---
REASON FOR ADMISSION: Sepsis, likely septic shock, very poor functional status, noncompliant with dialysis, last dialysis was almost a week back, severe hypoproteinemia, anasarca, possible pneumonia. HISTORY OF PRESENTING ILLNESS: Please note majority of this history is obtained by talking to Registered nurse at [facility] from where the patient was transferred, Dr. Martinez ER physician, and prior medical records as the patient is not fully oriented. I also spoke to her son, Mr. Winter, who is also power of environmental lead. Per snf report, the patient has been refusing dialysis for almost a week. She has been saying that she is nauseous and was not eating or drinking for almost a week now. This morning, her color was off. She was staring in space and her blood sugar has been progressively coming down for the last 2 to 3 days as she was not eating. The patient also had a urine culture drawn and was placed on ciprofloxacin for the last 3 to 4 days now. She has not had any fever or cough. No other resident at [facility] has coronavirus infection. None of the staff are quarantined or have had exposure there as far as the snf is aware of. The patient also was hard to arouse and did not look good per staff there. Per son , her last dialysis was on as she was feeling sick and did not want to go. Here in the ER, the patient's systolic blood pressures could not be accurately recorded and hence had an arterial line placed and she has had a central line in the right groin as well placed. The patient is currently maintaining airway and responds to one or two questions, which are very simple, but she is mostly confused. She is not in distress as of now. PAST MEDICAL AND SURGICAL HISTORY: History of end-stage renal disease, on hemodialysis, multiple hospitalization here; history of spine infection with diskitis; hypertension; dyslipidemia; diabetes mellitus type 2; depression; very poor functional status; radiculopathy; severe spinal canal central stenosis at T7-T8; cervical and thoracic spine surgery; obstructive sleep apnea; coronary artery disease; history of endocarditis; cataract with surgery; right eye blindness; left upper extremity dialysis access procedures, has a right tunneled dialysis catheter beneath her clavicle; right first and second toe amputation; appendectomy; right ankle repair. PERSONAL HISTORY: Does not abuse alcohol or drugs. No history of smoking. She is currently a resident of [facility]. FAMILY HISTORY: Father of complications from motor vehicle accident. Mother had history of diabetes. CODE STATUS: Full. Power of environmental lead is her son, Mr. Moy Sandy, number to reach him is [phone]. CURRENT MEDICATIONS: 1. The patient is on metoprolol 12.5 mg p.o. twice daily. 2. Aspirin 81 mg p.o. daily. 3. Ciprofloxacin 500 mg p.o. twice daily. This was started on 09/01/2019. 4. Potassium chloride extended release 10 mEq p.o. twice daily. 5. Atorvastatin 20 mg p.o. daily. 6. Norvasc 5 mg p.o. daily. 7. Ultram p.r.n. for pain. 8. Sertraline 50 mg p.o. at bedtime. ALLERGIES: NO KNOWN DRUG ALLERGIES. REVIEW OF SYSTEMS: Cannot be accurately obtained as the patient is not oriented and is confused at present. PHYSICAL EXAMINATION: GENERAL: The patient is a 59-year-old female, who is currently confused, but is not in any distress. VITAL SIGNS: Blood pressure 100/46, pulse 86 per minute, respiratory rate 18 per minute, temperature 97.7 degrees Fahrenheit, and saturating 100% on 2 L nasal cannula. NECK: Supple. No elevated JVD. HEENT: Eyes; extraocular muscles intact. Pupils reacting to light. Oral cavity, mucous membranes are dry. No exudates or congestion. CARDIOVASCULAR SYSTEM: S1 and S2 heard. Distant heart sounds. RESPIRATORY SYSTEM: Air entry 1+ bilateral. Scattered rhonchi plus no wheezes. ABDOMEN: Soft. No rigidity or guarding. Bowel sounds are heard. EXTREMITIES: 2+ peripheral edema. She has wasting of musculature in both lower extremities. Peripheral pulses are barely palpable in the upper extremity. Lower extremities, it is not palpable. No gangrene noted. Her extremities are cold to touch. CENTRAL NERVOUS SYSTEM: No gross localizing sign seen. The patient is seen moving her extremities. PSYCHIATRIC: Cannot be accurately assessed as she is confused at present. LABORATORY DATA: EKG done shows sinus rhythm at 83 beats per minute. EKG is low voltage. There is nonspecific ST-T wave changes seen. White count of 16, H and H of 10 and 30, platelet count is 97, MCV is 90 with 84% neutrophils, 2% bands. Serum bicarb 21, BUN 48, creatinine 5.1, serum glucose 146, lactic acid 3.3, and calcium 6.8. AST and ALT of 47 each, alk phos 254. Albumin is 1.3. Lipase is 8. T bilirubin 0.5. Her last urine culture that was obtained on 09/01/2019 is growing vancomycin-resistant Enterococcus. The patient has had similar sensitivity with similar organism in her urine culture on 07/23/2019. Chest x-ray done, questionable left lung pneumonia. There is cardiomegaly. CLINICAL IMPRESSION AND PLAN: The patient will be admitted to ICU for sepsis with septic shock, blood and urine cultures have been obtained in the ER. ER physician has also sent out sample for COVID. She will be on droplet and airborne precautions. There is no exposure for any coronavirus at her snf, that is [facility]. I have confirmed with director of channel marketing at her snf and her nurse as well. In any case, she will be on Zithromax, cefepime, and vancomycin with hemodialysis. We will also place her on Solu-Medrol 40 mg IV q.6 hourly, in view of hypotension, a cortisol level stat will be obtained. We will continue her aspirin, Lipitor, and Zoloft as before. She will be on norepinephrine if needed. CT of the abdomen and pelvis with contrast and CT brain without contrast are pending at present. She has had central line placed and art line placed as well in the ER. I have discussed her grim and poor prognostic findings with her son, Mr. Moy Sandy. He wants her to be full code for now. The patient has been noncompliant with her dialysis and has multiple comorbid conditions and has very poor albumin to sustain life. She also has multiple hospitalizations here with very poor functional status in addition to this. We will obtain Palliative Care consultation as well. LDH and CRP levels will be obtained as well to complete her diagnostic workup and a DIC panel as well. I have spoken to Dr. Kirby for pulmonology consultation and Dr. Hickey for Nephrology consultation. Last dialysis was exactly a week back on last . Job ID: [id number] [facility]
[2019-09-03 16:09] LABS: Squamous Epithelial 0-3 HPF (0-3); WBC/HPF Greater Than 50 HPF (0-3)
[2019-09-03 16:11] LABS: Bacteria/HPF 3+ HPF (None Seen)
[2019-09-03 16:32] LABS: Lactic Acid 3.5 mmol/L (0.5-2.2)
--- NOTE | 2019-09-03 16:37 | CT ---
EXAM: BRAIN CT WITHOUT CONTRAST: 09/03/19 HISTORY: Altered mental status. COMPARISON: 04/20/19. FINDINGS: There is some minimal residual right facial soft tissue changes from a previous hematoma but markedly improving from prior 04/20/19 study. Stable left ocular postoperative changes. No focal mass or midl ine shift. No intra or extra-axial hemorrhage. There is some right mastoid opacification, new from th e prior study. IMPRESSION: No acute intracranial process. No mass or bleed. New right mastoid opacification. Other findings as a amanda. POS: [facility]
--- NOTE | 2019-09-03 16:52 | CT ---
EXAM: ABDOMEN AND PELVIC CT SCAN WITH IV CONTRAST: 09/03/19 HISTORY: Abdominal pain. COMPARISON: 04/26/19. FINDINGS: There is motion artifact. The patient's arms overlie the upper abdomen resulting in severe artifact a nd significantly limits the sensitivity of this study. There are some patchy perihilar parenchymal ch anges noted including the right middle lobe and lingula as well as some linear changes in the bases a nd minimal right and left pleural thickening or tiny effusions and some pleural based parenchymal keira nges. These are nonspecific and could represent chronic change versus some mild pneumonitis. Very sev ere fatty changes of the liver. The gallbladder is partially obscured by artifact. No gallbladder wal l thickening or pericholecystic fat stranding. Marked fatty changes of the pancreas. Spleen and adren al glands are unremarkable. Both kidneys are very small and show extensive diffuse cortical thinning, evidence for nonspecific chronic renal disease. There is extensive subcutaneous fat stranding bilate rally, evidence for anasarca. No CT evidence for acute appendicitis. Weeks catheter within the urinar y bladder. No abscess, adenopathy, or abnormal fluid collection. Uterus and adnexal regions appear un remarkable. IMPRESSION: No significant acute process in the abdomen or pelvis. Extensive bilateral anasarca. Extensive fatty changes of the liver progressive from prior study. Other findings as above including some nonspecific perihilar parenchymal lung changes possibly representing some vascular congestion, subsegmental atel ectasis, or mild pneumonitis. POS: [facility]
[2019-09-03] MEDS: methylPREDNISolone Sod Succ 40 MG VIAL IVP SCH ×2 (18:07→23:19)
[2019-09-03] MEDS: Sodium Chloride 0.9% 1,000 ML IV SCH (18:08)
[2019-09-03] MEDS: HumaLOG 300 UNITS/3 ML VIAL SC PRN ×2 (18:14→21:24)
[2019-09-03 18:40] LABS: Lactic Acid 4.7 mmol/L (0.5-2.2)
[2019-09-03] MEDS: Azithromycin 500 MG in Sodium Chloride 0.9% 250 ML 250 ML IVPB SCH (18:50)
--- NOTE | 2019-09-03 19:20 | CON ---
DATE OF CONSULTATION: 09/03/2019 CONSULTING PHYSICIAN: Dr. Bustamante. REASON FOR CONSULTATION: End-stage renal disease evaluation. REASON FOR ADMISSION: Sepsis. HISTORY OF PRESENT ILLNESS: This is a 59-year-old female with history of end-stage renal disease, hypertension, dyslipidemia, type 2 diabetes, endocarditis, came to the hospital with hypotension and possible sepsis and is being evaluated. She gets dialysis and missed dialysis for a few days and is due for dialysis today. PAST MEDICAL HISTORY: Positive for end-stage renal disease, hypertension, hyperlipidemia, type 2 diabetes, and endocarditis. PAST SURGICAL HISTORY: Dialysis access placement, spine surgery, cataract surgery, ankle repair, appendectomy, and toe amputation. HOME MEDICATIONS: Reviewed. ALLERGIES: NO KNOWN DRUG ALLERGIES. SOCIAL HISTORY: No smoking, alcohol, or illicit drug abuse. FAMILY HISTORY: No history of kidney disease. REVIEW OF SYSTEMS: Could not be obtained. PHYSICAL EXAMINATION: GENERAL: This is an obese female, in no apparent distress. VITAL SIGNS: Blood pressure 100/46, pulse 86, respiratory rate 18, and temperature 97.7. LABORATORY DATA: Hemoglobin is 9.9, white count is 16.6. Potassium is 3.9, BUN is 48, and creatinine is 5.1. ASSESSMENT AND PLAN: 1. End-stage renal disease. Plan is to have dialysis today, dialysis nurse notified. 2. Hyponatremia. 3. Acidosis. 4. Severe hypoalbuminemia with severe protein energy malnutrition. Her albumin level is only 1.3, . 5. Anemia of chronic disease. 6. Possible sepsis with hypotension. 7. Pyuria with possible urinary tract infection. Follow up cultures. Follow up cultures. Continue supportive care. Plan is to have dialysis if tolerated. Thank you for the consult. Job ID: [id number]
[2019-09-03] MEDS ORDERED: Vancomycin HCl 750 MG in Sodium Chloride 0.9% 250 ML 250 ML IVPB SCH (20:00)
[2019-09-03] MEDS ORDERED: HOLD VANCOMYCIN FOR LEVEL >20 FS SCH (20:00)
[2019-09-03] MEDS ORDERED: Vancomycin 1 GM in Premix Bag 1 BAG IVPB SCH (20:00)
[2019-09-03] MEDS ORDERED: Vancomycin HCl 500 MG in Sodium Chloride 0.9% 100 ML IVPB SCH (20:00)
[2019-09-03] MEDS ORDERED: Vancomycin HCl 1.25 GM in Sodium Chloride 0.9% 250 ML 250 ML IVPB SCH (20:00)
[2019-09-03] MEDS ORDERED: Vancomycin Sliding Scale 1 EACH FS ONE (20:00)
[2019-09-03 20:05] LABS: HBSAg Index 0.24 S/CO (0-0.99); Hep B Surf Ag Non-Reactive S/CO (NonReactive)
[2019-09-03] MEDS: Senokot S 8.6-50 MG TAB PO SCH (20:29)
[2019-09-03] MEDS: Atorvastatin Calcium 20 MG TAB PO SCH (20:30)
[2019-09-03] MEDS ORDERED: Acetaminophen/Codeine 30-300mg Tablet PO PRN (22:51)
[2019-09-03] MEDS ORDERED: Acetaminophen/Codeine 30-300mg Tablet PO SCH (23:00)
[2019-09-04] MEDS: Sodium Chloride 0.9% 1,000 ML IV SCH ×2 (02:14→13:18)
[2019-09-04] MEDS: methylPREDNISolone Sod Succ 40 MG VIAL IVP SCH ×4 (05:08→19:13)
[2019-09-04 05:18] LABS: Anion Gap 14 mmol/L (10-20); BUN (Urea Nitrogen) 21 mg/dL (9.8-20.1); Calc. Creatinine Clearance 34 mL/min (70-130); Calcium 6.4 mg/dL (7.8-10.44); Carbon Dioxide 22 mmol/L (22-29); Chloride 102 mmol/L (98-107); Estimated GFR-MDRD 19; Glucose 102 mg/dL (70-105); Potassium 3.4 mmol/L (3.5-5.1); Sodium 135 mmol/L (136-145)
[2019-09-04 05:28] LABS: Band 25 % (5-11); Hemoglobin 9.6 g/dL (12.0-16.0); Lymphocytes 4 % (21-51); MDiff Complete? YES; Mean Corpuscular HGB CONC 32.4 g/dL (32.0-36.0); Mean Corpuscular Volume 92.8 fL (78.0-98.0); Mean Platelet Volume 9.2 fL (7.4-10.4); Neutrophil 71 % (42-75); Platelet Count 125 thou/uL (130-400); Platelet Morphology Comment Appears Decreased; RBC Distribution Width 15.1 % (11.5-14.5); Red Blood Cell (RBC) Count 3.19 mill/uL (4.20-5.40); White Blood Cell (WBC) Count 16.7 thou/uL (4.8-10.8)
[2019-09-04] MEDS: Aspirin 81 mg Enteric Coated Tablet PO SCH (07:25)
[2019-09-04] MEDS: Polyethylene Glycol 3350 17 GM Packet PO SCH (07:26)
[2019-09-04] MEDS: Senokot S 8.6-50 MG TAB PO SCH ×2 (07:26→19:13)
--- NOTE | 2019-09-04 08:28 | PRG ---
DATE OF SERVICE: 09/04/2019 SUBJECTIVE: This patient remains in the CCU on a Levophed drip. She is also on COVID-19 isolation protocol with results of that test continuing to be pending. She has no acute complaints. She says she feels better today. OBJECTIVE: VITAL SIGNS: Temperature 98.2, pulse 82, respirations 14, blood pressure 98/46, and O2 saturation 100%. She is currently on Levophed at 1 mcg/minute. HEENT: Unremarkable. NECK: No adenopathy or JVD. LUNGS: Clear without wheezing or rhonchi. CARDIOVASCULAR: S1 and S2 regular without audible murmur. ABDOMEN: Soft, obese, nontender, and nondistended. She has a sacral decubitus ulcer. EXTREMITIES: Edematous throughout. LABORATORY DATA: White blood cell count 16.7, hematocrit 29.6, and platelet count 125. Sodium 135, potassium 3.4, chloride 102, CO2 of 22, BUN 21, creatinine 2.6, and glucose 102. The flu swabs were negative. Cultures are pending. ASSESSMENT: 1. Sepsis syndrome/septic shock. 2. End-stage renal disease, requiring hemodialysis. 3. Underlying obstructive sleep apnea. 4. Decubitus ulcer. 5. History of endocarditis. 6. History of coronary artery disease. PLAN: 1. Basically, she will continue on the present antibiotics including vancomycin, cefepime, and azithromycin. We will wean off the Levophed provided her blood pressure stays above 90. It is assumed she is probably going to need dialysis today. I will go ahead and cut down on her steroid dose. 2. Hopefully, her COVID-19 test will come back negative today and we can take her out of isolation. Job ID: [id number]
[2019-09-04] MEDS ORDERED: Enoxaparin Sodium 30 MG/0.3 ML SYRINGE SC SCH (09:00)
[2019-09-04] MEDS: Famotidine 20 MG TAB PO SCH (09:05)
[2019-09-04] MEDS: traMADol HCl 50 MG TAB PO PRN ×2 (10:30→17:07)
--- NOTE | 2019-09-04 12:35 | PDOC.HOSPP ---
- Subjective Encounter Date: 09/04/19 Encounter Time: 11:15 Subjective: not in distress is not oriented per staff had HD with no fluid removal - Objective Vital Signs & Weight: Vital Signs (12 hours) Pulse Ox 09/04/19 08:00 100 09/04/19 04:09 99 Weight Weight 202 lb 2.622 oz Most Recent Monitor Data Heart Rate from ECG 76 Respiration from ECG 21 SpO2 100 I&O: 09/03/19 09/04/19 09/05/19 06:59 06:59 06:59 Intake Total 1798.1 Output Total 251 15 Balance 1547.1 -15 Result Diagrams: 09/04/19 04:10 09/04/19 04:10 Additional Labs: Accuchecks 09/04/19 09/03/19 09/03/19 03:40 21:25 18:14 POC Glucose 119 H 167 H 182 H Hospitalist ROS - Medication Medications: Active Medications Generic Name Dose Route Start Last Admin Trade Name Freq PRN Reason Stop Dose Admin Acetaminophen 650 mg 09/03/19 14:49 09/03/19 18:06 Tylenol PO 650 mg Q4H PRN Administration Headache/Fever/Mild Pain (1-3) Aspirin 81 mg 09/04/19 09:00 09/04/19 07:25 Ecotrin PO 81 mg DAILY HOMERO Administration Atorvastatin Calcium 20 mg 09/03/19 21:00 09/03/19 20:30 Lipitor PO 20 mg HS HOMERO Administration Famotidine 20 mg 09/04/19 09:00 09/04/19 09:05 Pepcid PO 20 mg DAILY HOMERO Administration Sodium Chloride 1,000 mls @ 100 mls/hr 09/03/19 14:49 09/04/19 02:14 Normal Saline 0.9% IV 1,000 mls .Q10H HOMERO Administration Azithromycin 500 mg/ Sodium 250 mls @ 250 mls/hr 09/03/19 20:00 09/03/19 18: 50 Chloride IVPB 250 mls Q24HR HOMERO Administration Insulin Human Lispro 0 units 09/03/19 14:49 09/03/19 21:24 Humalog SC 2 unit .MILD SLIDING SCALE PRN Administration Mild Correctional Scale Methylprednisolone Sodium Succinate 20 mg 09/04/19 09:00 09/04/19 09:06 Solu-Medrol IVP 20 mg Q6H HOMERO Administration Polyethylene Glycol 17 gm 04/03/20 09:00 09/04/19 07:26 Miralax PO 17 gm DAILY HOMERO Administration Senna/Docusate Sodium 2 tab 09/03/19 21:00 09/04/19 07:26 Senokot S PO 2 tab BID HOMERO Administration Sodium Chloride 10 ml 09/04/19 09:00 09/04/19 09:06 Flush - Normal Saline IVF 10 ml Q12HR HOMERO Administration Tramadol HCl 50 mg 09/04/19 05:08 09/04/19 10:30 Ultram PO 50 mg Q6H PRN Administration Moderate Pain (4-6) - Exam General Appearance: ill appearing Eye: PERRL, anicteric sclera ENT: no oropharyngeal lesions, dry oral mucosa Neck: supple, no JVD Heart: RRR Respiratory: normal chest expansion, no tachypnea Gastrointestinal: soft, non-distended, no guarding, no rigidity Extremities: no cyanosis, 2+ LE edema Neurological: cranial nerve grossly intact, no focal deficits Hosp A/P (1) Sepsis Code(s): A41.9 - SEPSIS, UNSPECIFIED ORGANISM Status: Acute Qualifiers: Sepsis type: sepsis due to unspecified organism Sepsis acute organ dysfunction status: with acute organ dysfunction Severe sepsis acute organ dysfunction type: encephalopathy Severe sepsis shock status: with septic shock Qualified Code(s): A41.9 - Sepsis, unspecified organism; R65.21 - Severe sepsis with septic shock; G93.40 - Encephalopathy, unspecified (2) UTI (urinary tract infection) Status: Suspected Qualifiers: Urinary tract infection type: acute cystitis Hematuria presence: without hematuria Qualified Code(s): N30.00 - Acute cystitis without hematuria (3) PNA (pneumonia) Code(s): J18.9 - PNEUMONIA, UNSPECIFIED ORGANISM Status: Suspected Qualifiers: Laterality: left (4) Non-compliance with renal dialysis Code(s): Z91.15 - PATIENT'S NONCOMPLIANCE WITH RENAL DIALYSIS Status: Acute (5) Severe protein-calorie malnutrition Code(s): E43 - UNSPECIFIED SEVERE PROTEIN-CALORIE MALNUTRITION Status: Chronic (6) Physical deconditioning Code(s): R53.81 - OTHER MALAISE Status: Chronic (7) DM2 (diabetes mellitus, type 2) Status: Chronic Qualifiers: Diabetes mellitus joint terminal attack controller insulin use: with care home use Diabetes mellitus complication status: with kidney complications Diabetes mellitus complication detail: with chronic kidney disease Chronic kidney disease stage : on chronic dialysis Qualified Code(s): E11.22 - Type 2 diabetes mellitus with diabetic chronic kidney disease; N18.6 - End stage renal disease; Z79.4 - emt intermediate (current) use of insulin; Z99.2 - Dependence on renal dialysis (8) Dyslipidemia Code(s): E78.5 - HYPERLIPIDEMIA, UNSPECIFIED Status: Chronic (9) ESRD on hemodialysis Code(s): N18.6 - END STAGE RENAL DISEASE; Z99.2 - DEPENDENCE ON RENAL DIALYSIS Status: Chronic (10) Acute metabolic encephalopathy Code(s): G93.41 - METABOLIC ENCEPHALOPATHY Status: Acute (11) Obesity (BMI 30-39.9) Code(s): E66.9 - OBESITY, UNSPECIFIED Status: Chronic - Plan is on cefepime, vanc and zithromax await covid 19 test results, may dc precautions including droplet and air borne if -ve levophed for pressure support, still hypotensive had HD with no fluid removal multiple comorbid issues, poor functional status, very low alb, edema, noncompliance with HD, snf resident, palliative care to see once she is off covid restrictions I have d/w son and have given full updates. prognosis guarded
--- NOTE | 2019-09-04 13:03 | PRG ---
DATE OF SERVICE: 09/04/2019 SUBJECTIVE: The patient is in ICU and talked with the bedside nurse. OBJECTIVE: GENERAL: This is an obese female, in ICU. VITAL SIGNS: Temperature 97.9. Heart rate 73. Respiratory rate 15. Blood pressure 94/53. LABORATORY DATA: Potassium 3.4, BUN is 21, creatinine is 2.6. ASSESSMENT AND PLAN: 1. End-stage renal disease. Continue on hemodialysis as tolerated. 2. Hyponatremia. 3. Hypokalemia. 4. History of hypertension. 5. Chronic anemia. 6. Altered mentation. Prognosis, guarded. Continue on dialysis as tolerated. Job ID: [id number] [facility]
[2019-09-04 13:05] VITALS: BMI 38.2
[2019-09-04] MEDS: Cefepime 1 GM in Sodium Chloride 0.9% 100 ML IVPB SCH (13:18)
[2019-09-04] MEDS: Norepinephrine 8 MG in Dextrose 5% in Water 242 ML IVPB SCH (13:58)
--- NOTE | 2019-09-04 17:16 | PDOC.PALFU ---
Palliative Care Follow-up Note Awaiting negative Covid results to further assess patient and fully address Goal of Care.
[2019-09-04] MEDS: Atorvastatin Calcium 20 MG TAB PO SCH (19:13)
[2019-09-04] MEDS: Azithromycin 500 MG in Sodium Chloride 0.9% 250 ML 250 ML IVPB SCH (19:13)
[2019-09-05] MEDS: methylPREDNISolone Sod Succ 40 MG VIAL IVP SCH ×4 (02:50→20:39)
[2019-09-05] MEDS: Sodium Chloride 0.9% 1,000 ML IV SCH ×2 (02:50→16:24)
[2019-09-05 06:25] LABS: Anion Gap 17 mmol/L (10-20); BUN (Urea Nitrogen) 25 mg/dL (9.8-20.1); Band 3 % (5-11); Calc. Creatinine Clearance 29 mL/min (70-130); Calcium 6.3 mg/dL (7.8-10.44); Carbon Dioxide 18 mmol/L (22-29); Chloride 106 mmol/L (98-107); Estimated GFR-MDRD 16; Glucose 144 mg/dL (70-105); Hemoglobin 9.3 g/dL (12.0-16.0); Hypochromia SLIGHT = 6-15 cells (100X) (0-5/hpf); Lymphocytes 7 % (21-51); MDiff Complete? YES; Mean Corpuscular HGB CONC 31.7 g/dL (32.0-36.0); Mean Corpuscular Hemoglobin 29.6 pg (27.0-31.0); Mean Corpuscular Volume 93.1 fL (78.0-98.0); Mean Platelet Volume 9.2 fL (7.4-10.4); Monocytes 10 % (0-10); Neutrophil 80 % (42-75); Platelet Count 126 thou/uL (130-400); Platelet Morphology Comment Appears Adequate; Potassium 3.6 mmol/L (3.5-5.1); RBC Distribution Width 15.2 % (11.5-14.5); Red Blood Cell (RBC) Count 3.15 mill/uL (4.20-5.40); Sodium 137 mmol/L (136-145); White Blood Cell (WBC) Count 21.4 thou/uL (4.8-10.8)
[2019-09-05] MEDS ORDERED: Chloraseptic Spray 180 ml Bottle PO PRN (09:08)
[2019-09-05] MEDS ORDERED: Heparin 10,000 UNITS/ 10 ML VIAL ONE (09:41)
[2019-09-05] MEDS: Polyethylene Glycol 3350 17 GM Packet PO SCH (10:27)
[2019-09-05] MEDS: Famotidine 20 MG TAB PO SCH (10:27)
[2019-09-05] MEDS: Aspirin 81 mg Enteric Coated Tablet PO SCH (10:27)
[2019-09-05] MEDS: Senokot S 8.6-50 MG TAB PO SCH ×2 (10:28→20:37)
[2019-09-05] MEDS ORDERED: PROPOFOL 0 ML ONE (11:13)
[2019-09-05] MEDS ORDERED: Propofol 1,000 MG/100 ML VIAL IV ONE (11:13)
[2019-09-05] MEDS: Norepinephrine 8 MG in Dextrose 5% in Water 242 ML IVPB SCH (11:30)
[2019-09-05 11:53] LABS: Anion Gap 20 mmol/L (10-20); BUN (Urea Nitrogen) 26 mg/dL (9.8-20.1); Calc. Creatinine Clearance 27 mL/min (70-130); Calcium 6.6 mg/dL (7.8-10.44); Carbon Dioxide 15 mmol/L (22-29); Chloride 106 mmol/L (98-107); Estimated GFR-MDRD 14; Glucose 147 mg/dL (70-105); Potassium 4.6 mmol/L (3.5-5.1); Sodium 136 mmol/L (136-145)
--- NOTE | 2019-09-05 12:05 | PDOC.HOSPP ---
- Subjective Encounter Date: 09/05/19 Encounter Time: 11:00 Subjective: is developing worsoning of anasarca not oriented, wanting something for throat pain - Objective Vital Signs & Weight: Vital Signs (12 hours) Temp Pulse Pulse Ox 09/05/19 11:18 114 H 09/05/19 07:41 96 09/05/19 07:00 97.5 F L Weight Admit Weight 202 lb 9.677 oz Weight 202 lb 2.622 oz Most Recent Monitor Data Heart Rate from ECG 132 Respiration from ECG 19 SpO2 96 I&O: 09/04/19 09/05/19 09/06/19 06:59 06:59 06:59 Intake Total 1798.1 3142.4 Output Total 251 35 Balance 1547.1 3107.4 Result Diagrams: 09/05/19 02:55 09/05/19 11:09 Hospitalist ROS - Medication Medications: Active Medications Generic Name Dose Route Start Last Admin Trade Name Freq PRN Reason Stop Dose Admin Acetaminophen 650 mg 09/03/19 14:49 09/03/19 18:06 Tylenol PO 650 mg Q4H PRN Administration Headache/Fever/Mild Pain (1-3) Aspirin 81 mg 09/04/19 09:00 09/05/19 10:27 Ecotrin PO Not Given DAILY HOMERO Atorvastatin Calcium 20 mg 09/03/19 21:00 09/04/19 19:13 Lipitor PO 20 mg HS HOMERO Administration Famotidine 20 mg 09/04/19 09:00 09/05/19 10:27 Pepcid PO Not Given DAILY HOMERO Cefepime HCl 1 gm/ Sodium 100 mls @ 200 mls/hr 09/04/19 12:00 09/04/19 13:18 Chloride IVPB 100 mls 1200 HOMERO Administration Sodium Chloride 1,000 mls @ 100 mls/hr 09/03/19 14:49 09/05/19 02:50 Normal Saline 0.9% IV 1,000 mls .Q10H HOMERO Administration Norepinephrine Bitartrate 8 mg 250 mls @ 0 mls/hr 09/04/19 13:30 09/04/19 13: 58 / Dextrose/Water IVPB 250 mls INF HOMERO Administration Protocol Titrate Insulin Human Lispro 0 units 09/03/19 14:49 09/03/19 21:24 Humalog SC 2 unit .MILD SLIDING SCALE PRN Administration Mild Correctional Scale Methylprednisolone Sodium Succinate 20 mg 09/04/19 09:00 09/05/19 11:50 Solu-Medrol IVP Not Given Q6H [facility] Ondansetron HCl 4 mg 09/03/19 14:49 09/04/19 17:07 Zofran IVP 4 mg Q6H PRN Administration Nausea/Vomiting Phenol 0 ml 09/05/19 09:08 09/05/19 09:43 Chloraseptic [place] 180 Ml Bot PO 2 spray Q1H PRN Administration SORE THROAT Polyethylene Glycol 17 gm 09/04/19 09:00 09/05/19 10:27 Miralax PO Not Given DAILY [facility] Senna/Docusate Sodium 2 tab 09/03/19 21:00 09/05/19 10:28 Senokot S PO Not Given BID HOMERO Sertraline HCl 100 mg 09/05/19 09:00 09/05/19 10:28 Zoloft PO Not Given DAILY [facility] Sodium Chloride 10 ml 09/04/19 09:00 09/05/19 11:50 Flush - Normal Saline IVF Not Given Q12HR [facility] Tramadol HCl 50 mg 09/04/19 05:08 09/04/19 17:07 Ultram PO 50 mg Q6H PRN Administration Moderate Pain (4-6) - Exam General Appearance: ill appearing Eye: PERRL, anicteric sclera ENT: no oropharyngeal lesions, dry oral mucosa Neck: supple, no JVD Heart: RRR, no murmur Respiratory: no wheezes, rales, rhonchi Gastrointestinal: soft, normal bowel sounds, no guarding, no rigidity Extremities: no cyanosis, 2+ LE edema Neurological: cranial nerve grossly intact, no new deficit Hosp A/P (1) Acute respiratory failure with hypoxia Code(s): J96.01 - ACUTE RESPIRATORY FAILURE WITH HYPOXIA Status: Acute (2) Sepsis Code(s): A41.9 - SEPSIS, UNSPECIFIED ORGANISM Status: Acute Qualifiers: Sepsis type: sepsis due to unspecified organism Sepsis acute organ dysfunction status: with acute organ dysfunction Severe sepsis acute organ dysfunction type: encephalopathy Severe sepsis shock status: with septic shock Qualified Code(s): A41.9 - Sepsis, unspecified organism; R65.21 - Severe sepsis with septic shock; G93.40 - Encephalopathy, unspecified (3) UTI (urinary tract infection) Status: Suspected Qualifiers: Urinary tract infection type: acute cystitis Hematuria presence: without hematuria Qualified Code(s): N30.00 - Acute cystitis without hematuria (4) PNA (pneumonia) Code(s): J18.9 - PNEUMONIA, UNSPECIFIED ORGANISM Status: Suspected Qualifiers: Laterality: left (5) Non-compliance with renal dialysis Code(s): Z91.15 - PATIENT'S NONCOMPLIANCE WITH RENAL DIALYSIS Status: Acute (6) Severe protein-calorie malnutrition Code(s): E43 - UNSPECIFIED SEVERE PROTEIN-CALORIE MALNUTRITION Status: Chronic (7) Physical deconditioning Code(s): R53.81 - OTHER MALAISE Status: Chronic (8) DM2 (diabetes mellitus, type 2) Status: Chronic Qualifiers: Diabetes mellitus correction insulin use: with correction use Diabetes mellitus complication status: with kidney complications Diabetes mellitus complication detail: with chronic kidney disease Chronic kidney disease stage : on chronic dialysis Qualified Code(s): E11.22 - Type 2 diabetes mellitus with diabetic chronic kidney disease; N18.6 - End stage renal disease; Z79.4 - FPC (current) use of insulin; Z99.2 - Dependence on renal dialysis (9) Dyslipidemia Code(s): E78.5 - HYPERLIPIDEMIA, UNSPECIFIED Status: Chronic (10) ESRD on hemodialysis Code(s): N18.6 - END STAGE RENAL DISEASE; Z99.2 - DEPENDENCE ON RENAL DIALYSIS Status: Chronic (11) Acute metabolic encephalopathy Code(s): G93.41 - METABOLIC ENCEPHALOPATHY Status: Acute (12) Obesity (BMI 30-39.9) Code(s): E66.9 - OBESITY, UNSPECIFIED Status: Chronic - Plan Had code blue and had to be intubated for hypoxia has severe anasarca with third spacing and very low albumin is on cefepime, vanc covid 19 test is -ve levophed for pressure support, still hypotensive had HD with no fluid removal yesterday, will have HD again today if stable multiple comorbid issues, poor functional status, very low alb, edema, noncompliance with HD, snf resident, palliative care. I have d/w son and have given full updates from last 2 days and his this am, they are aware of very poor prognosis. prognosis poor
[2019-09-05 12:06] LABS: Hemoglobin 10.1 g/dL (12.0-16.0); Mean Corpuscular Hemoglobin 29.9 pg (27.0-31.0); Mean Corpuscular Volume 96.2 fL (78.0-98.0); Mean Platelet Volume 9.2 fL (7.4-10.4); Platelet Count 132 thou/uL (130-400); RBC Distribution Width 15.1 % (11.5-14.5); Red Blood Cell (RBC) Count 3.38 mill/uL (4.20-5.40); White Blood Cell (WBC) Count 32.9 thou/uL (4.8-10.8)
[2019-09-05] MEDS ORDERED: Albumin 5% 0 ML ONE (12:13)
[2019-09-05] MEDS ORDERED: Albumin 25% 200 ML ONE (12:16)
--- NOTE | 2019-09-05 12:35 | RAD ---
Chest one view HISTORY: Intubation. CODE BLUE. COMPARISON: 09/03/2019. FINDINGS: Cardiac silhouette is magnified by projection. Pulmonary vasculature is now more engorged w ith patchy bilateral perihilar and bibasilar infiltrates. Mediastinum is midline. Tip of an endotracheal catheter overlies the thoracic inlet. Multiple lines a nd tubes overlie the chest and abdomen. Right internal jugular large caliber catheter is unchanged in position. Postoperative changes of the thoracic spine are stable. Defibrillator patch overlies the left chest. IMPRESSION : Endotracheal catheter is in good radiographic position. Developing pulmonary edema.
[2019-09-05 12:36] LABS: Anisocytosis SLIGHT = 6-15 cells (100X) (0-5/hpf); Band 12 % (5-11); Lymphocytes 22 % (21-51); MDiff Complete? YES; Monocytes 2 % (0-10); Neutrophil 64 % (42-75); Ovalocytes SLIGHT = 2-5 cells (100X) (0-1/hpf); Platelet Morphology Comment Appears Adequate; Polychromasia SLIGHT = 2-3 cells (100X) (0-2/hpf); Vacuoles SLIGHT
[2019-09-05 12:38] LABS: Actual Bicarbonate (HCO3a) 9.2 mEq/L (22-28); Base Excess (BEa) -17.1 mEq/L (-2.0 to +3.0); Calcium, Ionized 1.01 mmol/L (1.12-1.30); Carboxyhemoglobin (COHb) 0.7 gm% (0.0-3.0); Hemoglobin (Hb) 10.1 g/dL (12.0-16.0); Potassium - ABG Lab 3.89 mmol/L (3.70-5.30)
[2019-09-05 12:39] LABS: CO2 Tension 23.9 mmHg (35.0-45.0); O2 Tension (PaO2) 55.5 mmHg (80.0-100.0); Puncture Site LINE
[2019-09-05 12:40] LABS: ALV-art Gradient 271.125 (0-20)
[2019-09-05 13:02] LABS: Vancomycin, Random 13.7 ug/mL (See Comment)
--- NOTE | 2019-09-05 13:10 | PRG ---
DATE OF SERVICE: 09/05/2019 SUBJECTIVE: Ms. Bright is a 59-year-old female. According to her son, she has been on dialysis for a number of years. 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 She had some residual deficit at the T8 level and is no longer ambulatory. 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 In the days prior to admission, she had been feeling very badly and has refused dialysis. She was referred to the hospital, where she is given the initial diagnosis of sepsis. She was screen for COVID and is negative. She has been receiving dialysis here as well as ongoing antibiotic therapy including vancomycin and cefepime. Her blood cultures have been negative. Her urine has grown yeast. Her influenza screen has been negative for both A and B. She is continued to require pressors, and today, is on Levophed at 25 mcg. She began to develop sensation of breathlessness. Shortly thereafter, she had worsening hypotension and became apneic. Ambu-bag respiration was initiated and a code blue was called. Initially she had a pulse, but this was lost and CPR initiated per protocol with one dose of epinephrine. She was orally intubated and had latter day of pulse. She is placed on the ventilator, and at this time is not as responsive as she had been. Her family is at the bedtime. I have reviewed with them her rapid change in status superimposed upon her numerous chronic illnesses, some of which are also in recent deterioration. They wish ongoing supportive therapies. PHYSICAL EXAMINATION: VITAL SIGNS: Blood pressure prior to cardiac arrest was 121/47, with heart rate of 88. Current blood pressure is actually higher at 142 systolic. Her heart rate is in the 120s following dose of epinephrine. She is orally intubated with 7.5 endotracheal tube. She has no adenopathy. She does have external jugular venous distention. LUNGS: Show coarse rhonchi in all lung ghosh. HEART: Tachycardic with occasional PVCs. ABDOMEN: Soft. There is no organomegaly. Abdomen is obese. Bowel sounds are distant. EXTREMITIES: She has a node access in the left upper arm. She has a tunneled catheter in the right subclavian. She has a right femoral central line. She 1+ edema. NEUROLOGIC: At the time of post CPR assessment, she is not responsive to verbal stimuli. LABORATORY DATA: Laboratory today includes white count of 21.4, hemoglobin is 9.3, platelets count 126,000. Chemistries include sodium 137, potassium 3.6, chloride 106, CO2 is 18, BUN 25, creatinine 3, glucose is 144. Post CPR, chest x-ray shows spine fixations to thoracic levels. The endotracheal tube is in good position. Heart size is enlarged. She has a catheter for dialysis via the right IJ. Interstitial prominence is noted. IMPRESSION: 1. Status post CPR. The patient has been more hypotensive through the day, presumably due to her ongoing sepsis despite antibiotics. She then had cardiopulmonary arrest, possibly precipitated by a respiratory cause. She was fairly rapidly resuscitated. She is not currently responsive, but hopefully will have latter day of her appropriate level of consciousness within 24 hours. I have counseled extensively the family. 2. End-stage renal disease, on hemodialysis. She has been refusing recently. She is on pressors today and that may make dialysis a bit more challenging. 3. Sepsis. She is on broad-spectrum antibiotics. In the past, she has had VRE. She is also reported to have had endocarditis in the past as well as osteomyelitis. 4. Morbid obesity. PLAN: She is now receiving ventilatory support, and post intubation blood gas is pending, at which time, further ventilator adjustments will be made. She continues on antibiotics and possibly will have dialysis today. I have had a long counseling session with the patient's family regarding her acute and chronic illnesses. At this point, they wish continued resuscitative measures. Fortunately, her COVID was negative. Pressors are ongoing. Her condition is critical. Critical care time, 45 minutes today, spent exclusive of procedural time. Job ID: [id number]
[2019-09-05] MEDS ORDERED: Morphine 2 MG/ML SYRINGE SLOW IVP PRN (13:47)
[2019-09-05] MEDS ORDERED: Propofol 1,000 MG/100 ML VIAL IV PRN (13:47)
[2019-09-05] MEDS ORDERED: Fentanyl BOLUS 250 ML IVPB PRN (13:47)
[2019-09-05] MEDS ORDERED: Propofol BOLUS 1,000 MG/100 ML VIAL IV PRN (13:47)
[2019-09-05] MEDS ORDERED: Lorazepam 2 MG/ML VIAL SLOW IVP PRN (13:47)
[2019-09-05] MEDS ORDERED: fentaNYL Citrate/PF 2,000 MCG in Sodium Chloride 0.9% 60 ML IV SCH (13:47)
--- NOTE | 2019-09-05 14:13 | PRG ---
DATE OF SERVICE: 09/05/2019 SUBJECTIVE: The patient is seen and examined at bedside. She had code blue earlier and blood pressure was dropping and she had respiratory issues. OBJECTIVE: GENERAL: This is a morbidly obese female, intubated currently. VITAL SIGNS: Temperature 97.5, pulse 133, respiratory rate 19, blood pressure 126/58. HEENT: Intubated. CARDIOVASCULAR: S1 and S2 heard. Tachycardia. RESPIRATORY: Clear. GI: Abdomen is soft MUSCULOSKELETAL: 1+ edema. DERMATOLOGIC: No skin rash. NEUROLOGIC: Intubated. LABORATORY DATA: Potassium 4.6, BUN is 26, creatinine is 3.3. ASSESSMENT AND PLAN: 1. End-stage renal disease. We will continue hemodialysis if tolerated. Her hemodialysis remains a risky at this point. 2. Hyponatremia. 3. Hypokalemia. 4. History of hypertension. 5. Chronic anemia. 6. Altered mentation. 7. Acute hypoxic respiratory failure. 8. Prognosis guarded. Not tolerating dialysis well. She has tachycardia and hypertension. We will continue dialysis if tolerated. Not able to remove fluid on dialysis. Job ID: [id number]
[2019-09-05] MEDS ORDERED: Norepinephrine 16 MG in Dextrose 5% in Water 234 ML IVPB SCH (14:45)
[2019-09-05] MEDS ORDERED: Micafungin 100 MG in Sodium Chloride 0.9% 100 ML IVPB SCH (15:00)
[2019-09-05] MEDS: Cefepime 1 GM in Sodium Chloride 0.9% 100 ML IVPB SCH (16:23)
[2019-09-05 16:58] LABS: Base Excess (BEa) -7.6 mEq/L (-2.0 to +3.0); Calcium, Ionized 0.93 mmol/L (1.12-1.30); Hemoglobin (Hb) 8.7 g/dL (12.0-16.0); Potassium - ABG Lab 3.74 mmol/L (3.70-5.30); pH, Arterial 7.41 (7.35-7.45)
[2019-09-05 16:59] LABS: ALV-art Gradient 618.625 (0-20); CO2 Tension 25.9 mmHg (35.0-45.0); Puncture Site LINE
--- NOTE | 2019-09-05 18:48 | CON ---
DATE OF CONSULTATION: REASON FOR CONSULTATION: Sepsis. HISTORY OF PRESENT ILLNESS: A 59-year-old patient, whom I had seen quite a few times in the past, who has a history of type 2 diabetes, end-stage renal disease on hemodialysis, and a prior methicillin-sensitive Staphylococcus aureus infection of the back, which ended up requiring intervention and extensive fusion. The patient has been treated with IV cefazolin given at dialysis and I believe, she has completed the treatment. She had been in a alf and apparently over the past week before admission, she developed general malaise and declined being transferred to have her dialysis treatments for the week before admission. I contacted the alf and was trying to speak with a nurse, left a message for her to call me back, so I can ask her questions about her clinical status right before she was admitted. The patient was admitted on September 02 and on arrival, the patient had mental status changes and there was complaints of abdominal tenderness. Other findings included a temperature 98.2, pulse 79, respirations 18, and blood pressure 88/60. She remained afebrile through the stay in the emergency room. In the examination, the abdominal exam showed diffuse tenderness, moderate intensity. Other findings on admission included white cell count 16.6, hemoglobin 9.9, and platelets 97,000 with 84% neutrophils and chemistry with a sodium 134, creatinine 5.14, carbon dioxide 21, lactic acid was 3.4, AST 47, ALT 47, and alkaline phosphatase 254. CRP 11.15. Urinalysis with greater than 50 wbc's. She had a COVID rule out PCR, which was not detected. Imaging studies on admission included an abdomen and pelvis CT scan, which demonstrated artifact and technical difficulties with the study. There was some patchy perihilar parenchymal changes including the right middle lobe and lingula as well as some linear changes in the bases, minimal right and left parenchymal thickening, small effusions, and some pleural-based parenchymal changes. These could represent chronic changes. Fatty liver was noted. Gallbladder appeared normal. No other findings were noted. Anasarca was identified. She had a brain CT without any acute intracranial process identified. Currently, Ms. Bright is intubated. She is maxed out on Levophed and the providers have contacted family members. They want her to continue to receive full interventions including the CPR/ACLS, if needed. She has not had diarrhea. No seizure activity. PAST MEDICAL HISTORY: Type 2 diabetes, end-stage renal disease, prior AV fistula complications, and MSSA bacteremia spinal infection, which eventually culminated and decompressive surgery and fusion. Multiple dialysis access. Now, she has a tunneled catheter in the right IJ position. Coronary artery disease, stents. PAST SURGICAL HISTORY: Also includes appendectomy. SOCIAL HISTORY: Former smoker, quit more than 10 years ago. Currently living in a alf, [facility]. ALLERGIES: NONE. MEDICATIONS: List currently includes: 1. Tylenol. 2. Ecotrin. 3. Lipitor. 4. Cefepime. 5. Dextrose. 6. Pepcid. 7. Fentanyl. 8. Robitussin. 9. Ativan. 10. Methylprednisolone. 11. Vancomycin. PHYSICAL EXAMINATION: VITAL SIGNS: With a T-max 99.9, blood pressure 94/43, pulse 112, respiratory rate 16, and O2 saturation 100. I's and O's are positive 1500 yesterday and 3100 today. She has an indwelling Weeks catheter with minimal output. SKIN: Area of stage 1 to 2 pressure damage in the gluteal region. In the back area, there is a fusiform last about 1 cm wound along the site of the previous thoracic surgery with a quite superficial base and somewhat yellow. She is unresponsive. Cool extremities. No lymphadenopathy. HEENT: Sclerae white. Pupils are 2 mm and sluggishly reactive and symmetric. Orotracheal intubation. LUNGS: With coarse breath sounds. HEART: S1 and S2. Regular rate. ABDOMEN: Somewhat distended. Question of ascites. No bladder distention. EXTREMITIES: I could not obtain any elicited movements in the extremities. NEUROLOGIC: She is not responsive at the moment. LABORATORY DATA: White cell count is up to 32.9, hemoglobin 10.1, platelets 132, and 12% bands, which is down from admission. ASSESSMENT: 1. Type 2 diabetes, end-stage renal disease, recent extensive infection of thoracic spine due to methicillin-sensitive Staphylococcus aureus, which required decompressive surgery and fusion with protracted treatment through dialysis with antimicrobial therapy, which I think she has completed. 2. 1-week history of general malaise and altered mental status with sepsis, hyperlactatemia, normal urinalysis, Antonella albicans, and likely VRE in the urine. She had similar organisms in August, both at the beginning of August and at the end of August and in July. DISCUSSION: The patient has very poor prognosis indicators and chances of survival are quite small. She did have a brief cardiopulmonary arrest, but returned pretty promptly. We will switch her to a Zyvox and micafungin. Continue cefepime. We will discuss with family members regarding the poor prognosis and the fact that providing ACLS/CPR would not be in the patient's best interest in case she was to have a recurrence of her cardiac arrest. The sites of origin of the sepsis could be either be the urinary tract, the spine, or the catheter. For example, she could have candidemia associated with catheter colonization or VRE colonization of the dialysis catheter. Endocarditis is not ruled out. Respiratory tract infection is less likely and if she has any infiltrates, it is probably as a consequence of this systemic infection. Job ID: [id number]
[2019-09-05] MEDS: Atorvastatin Calcium 20 MG TAB PO SCH (20:37)
[2019-09-05 20:53] VITALS: TEMP 97.7
[2019-09-05] MEDS ORDERED: Linezolid 600 MG in Premix Bag 1 BAG IVPB SCH (21:00)
--- NOTE | 2019-09-06 10:07 | OP ---
DATE OF PROCEDURE: 09/05/2019 CHIEF COMPLAINT: Code Blue. PROCEDURE: Intubation and CPR. I was called to aric Fowler, and at the time of my arrival, the patient had pulse, but was not making spontaneous efforts regarding respiration. Ambu bagging was initiated. Promptly thereafter, the patient had loss of pulse and CPR was initiated per protocol. She was intubated on the first pass with a 7.5 endotracheal tube. Position is confirmed by CO2 and by bilateral auscultation and secured at 20 cm. She was placed on the ventilator. Pulse was restored and CPR terminated at that time. She continues on pressors. I had a conversation with the patient's family notifying them of her change in status. Job ID: [id number]
--- NOTE | 2019-09-06 18:22 | DIS ---
DATE OF ADMISSION: 09/03/2019 DATE OF DISCHARGE: 09/05/2019 SUMMARY: DATE OF : 09/05/2019 at 2227 hours. PRIMARY CAUSE OF : Multiple organ failure from 2 days, sepsis with septic shock 2 days. SECONDARY DISCHARGE DIAGNOSES: Anasarca with hypoalbuminemia; poor functional status; end-stage renal disease, on hemodialysis with noncompliance. BRIEF COURSE DURING HOSPITALIZATION: The patient initially was admitted on the 02 of September after she was [facility] with complaints of lethargy, altered mental state, and progressive weakness. She had also refused dialysis for almost a week. The patient was septic with hypotension and in septic shock on admission. She was admitted to ICU and was placed on pressors. She has had dialysis done without fluid removal. COVID-19 PCR was negative. The patient had very poor functional status to begin with and was not ambulating at the [facility]. She was placed on broad-spectrum antibiotics after cultures were obtained. She was also placed on steroids in view of severe hypotension. She soon decompensated on the and had a code blue with apneic spells and cardiac arrest and had to be resuscitated. She was subsequently intubated. The patient had subsequent two more arrests and was resuscitated. She was a full code. Finally, her son, Mr. Moy Sandy made her do not attempt to resuscitate. She was maximized on Levophed and was also on vasopressin. Despite all these measures, the patient finally breathed last at 2227 hours on 09/05/2019. Her body will be released per hospital protocol to the home. All through her stay here, her son and family were fully updated. Job ID: [id number]
== END 2019-09-05 22:27 | disposition expired | DRG 871 ==
LOC: ERS 10:30 → CCU 14:04
PROVIDERS: ADMIT Internal Medicine; ATTEND Internal Medicine
PROC: 3E033XZ Introduction of Vasopressor into Peripheral Vein, Percutaneous Approach (ICD-10-PCS; principal; 2019-09-03)
PROC: 04HY32Z Insertion of Monitoring Device into Lower Artery, Percutaneous Approach (ICD-10-PCS; 2019-09-03)
PROC: 02HV33Z Insertion of Infusion Device into Superior Vena Cava, Percutaneous Approach (ICD-10-PCS; 2019-09-03)
PROC: 8E0ZXY6 Isolation (ICD-10-PCS; 2019-09-03)
PROC: 5A1D70Z Performance of Urinary Filtration, Intermittent, Less than 6 Hours Per Day (ICD-10-PCS; 2019-09-04)
PROC: 3E033XZ Introduction of Vasopressor into Peripheral Vein, Percutaneous Approach (ICD-10-PCS; 2019-09-05)
PROC: 5A12012 Performance of Cardiac Output, Single, Manual (ICD-10-PCS; 2019-09-05)
PROC: 0BH17EZ Insertion of Endotracheal Airway into Trachea, Via Natural or Artificial Opening (ICD-10-PCS; 2019-09-05)
PROC: 5A1935Z Respiratory Ventilation, Less than 24 Consecutive Hours (ICD-10-PCS; 2019-09-05)
DX: A41.9 Sepsis, unspecified organism (principal); R65.21 Severe sepsis with septic shock; G93.41 Metabolic encephalopathy; J96.01 Acute respiratory failure with hypoxia; N18.6 End stage renal disease; E43 Unspecified severe protein-calorie malnutrition; J18.9 Pneumonia, unspecified organism; E87.1 Hypo-osmolality and hyponatremia; E87.2 Acidosis; N30.00 Acute cystitis without hematuria; I12.0 Hypertensive chronic kidney disease with stage 5 chronic kidney disease or end stage renal disease; E11.22 Type 2 diabetes mellitus with diabetic chronic kidney disease; E78.5 Hyperlipidemia, unspecified; E78.00 Pure hypercholesterolemia, unspecified; F41.9 Anxiety disorder, unspecified; F32.9 Major depressive disorder, single episode, unspecified; M54.10 Radiculopathy, site unspecified; I25.10 Atherosclerotic heart disease of native coronary artery without angina pectoris; H54.8 Legal blindness, as defined in USA; G47.33 Obstructive sleep apnea (adult) (pediatric); D63.1 Anemia in chronic kidney disease; L89.159 Pressure ulcer of sacral region, unspecified stage; E87.6 Hypokalemia; E66.01 Morbid (severe) obesity due to excess calories; I46.9 Cardiac arrest, cause unspecified; Z87.891 Personal history of nicotine dependence; Z99.2 Dependence on renal dialysis; Z90.49 Acquired absence of other specified parts of digestive tract; Z79.82 Long term (current) use of aspirin; Z79.899 Other long term (current) drug therapy; Z79.4 Long term (current) use of insulin; Z91.15 Patient's noncompliance with renal dialysis; Z68.38 Body mass index [BMI] 38.0-38.9, adult
CPT/HCPCS: 36415; 36416; 36556; 36620; 51702; 70450; 71045; 74177; 80048; 80053; 80202; 81001; 82533; 82805; 83605; 83690; 83735; 85025; 85027; 85049; 85300; 85362; 85379; 85384; 85610; 85730; 86140; 87040; 87077; 87086; 87186; 87340; 87804; 90935; 92950; 93005; 94002; 96365; 96366; 96367; 96368; 96375; 99292; G0257; J0171; J0456; J0692; J1644; J1650; J1956; J2020; J2405; J2704; J2920; J3370; J3490; J7050; J7070; P9045; P9047; Q9967; U0001